=== PATIENT | female | born 1975 | race Caucasian/White ===

== ENCOUNTER 2017-12-17 17:06 | Emergency (ER) | payer OTHER ==
--- NOTE | 2017-12-17 17:27 | ER ---
Nurse's Notes [facility] Name: Joy Strauss Age: 42 yrs Sex: Female : 1975 Arrival Date: 12/17/2017 Time: 17:11 Bed 19 Private MD: Diagnosis: Acute pharyngitis Presentation: 12/17 17:24 Presenting complaint: Patient states: daughter was diagnosed with strep on Saturday, iw yesterday pt started having sore throat, burning in chest when she breathes, productive cough. Transition of care: patient was not received from another setting of care. Onset of symptoms was December 16, 2017. Initial Sepsis Screen: Does the patient meet any 2 criteria? No. Patient's initial sepsis screen is negative. Does the patient have a suspected source of infection? No. Patient's initial sepsis screen is negative. Care prior to arrival: None. 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 - Social history:: Smoking status: Patient/guardian denies using tobacco. - Family history:: not pertinent. - Hospitalizations: : No recent hospitalization is reported. Screenin:30 Abuse screen: Denies threats or abuse. Denies injuries from another. Nutritional iw screening: On. Tuberculosis screening: No symptoms or risk factors identified. Fall Risk None identified. Assessment: 17:29 General: Appears in no apparent distress. comfortable, Behavior is calm, cooperative. iw Pain: Complains of pain in throat, chest. Neuro: Level of Consciousness is awake, alert, obeys commands, Oriented to person, place, time, situation, Moves all extremities. Full function. Cardiovascular: Patient's skin is warm and dry. Respiratory: Reports cough that is Airway is patent Respiratory effort is even, unlabored, Breath sounds are clear bilaterally. EENT: Throat is reddened bilaterally. Derm: Skin is pink, warm \T\ dry. normal. Musculoskeletal: Range of motion: intact in all extremities. Vital Signs: 17:27 BP 124 / 93; Pulse 98; Resp 16 S; Temp 98.2; Pulse Ox 100% on R/A; Weight 61.23 kg; iw Height 5 ft. 2 in. (157.48 cm); 17:27 Body Mass Index 24.69 (61.23 kg, 157.48 cm) iw ED Course: 17:11 Patient arrived in ED. sb2 17:14 Brooks Saleh MD is Attending Physician. rn 17:15 Angelito Celis RN is Primary Nurse. hj 17:26 Triage completed. iw 17:28 Arm band placed on right wrist. iw 17:30 No provider procedures requiring assistance completed. Patient did not have IV access iw during this emergency room visit. 17:34 Patient has correct armband on for positive identification. iw Administered Medications: No medications were administered Outcome: 17:27 Discharge ordered by MD. rn 17:33 Discharged to home ambulatory, with family. iw 17:33 Condition: good 17:33 Discharge instructions given to patient, Instructed on discharge instructions, follow up and referral plans. medication usage, Demonstrated understanding of instructions, follow-up care, medications, Prescriptions given X 1. 17:34 Patient left the ED. iw Signatures: Yenny Morrissey RN RN Brooks Saleh MD MD rn Joaquin, Henry, RN RN Kathrin Jarrell sb2 Corrections: (The following items were deleted from the chart) 17:29 17:27 BP 124 / 93; Pulse 98bpm; Resp 16bpm; Spontaneous; Pulse Ox 100% RA; 61.23 kg; iw Height 5 ft. 2 in.; BMI: 24.6; iw
--- NOTE | 2017-12-17 17:28 | EDPHYS ---
Physician Documentation [facility] Name: Joy Strauss Age: 42 yrs Sex: Female : 1975 Arrival Date: 12/17/2017 Time: 17:11 Bed 19 Private MD: ED Physician Brooks Saleh HPI: 12/17 17:23 This 42 yrs old Female presents to ER via Unassigned with complaints of Sore rn Throat. 17:23 The patient presents with sore throat. The patient describes throat pain as raw. rn 17:23 Severity of symptoms: At their worst the symptoms were mild, in the emergency rn department the symptoms are unchanged. Associated signs and symptoms: Pertinent positives: Sore throat. The patient has not experienced similar symptoms in the past. Reports daughter tested and diagnosed with strep throat a few days ago, on abx, now her throat hurting, raw, hurts to swallow. No trouble breathing. . 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 - Social history:: Smoking status: Patient/guardian denies using tobacco. - Family history:: not pertinent. - Hospitalizations: : No recent hospitalization is reported. ROS: 17:23 Constitutional: Negative for fever, chills, and weight loss, Eyes: Negative for injury, rn pain, redness, and discharge, Neck: + sore throat Cardiovascular: Negative for chest pain, palpitations, and edema, Respiratory: Negative for shortness of breath, wheezing, and pleuritic chest pain, Abdomen/GI: Negative for abdominal pain, nausea, vomiting, diarrhea, and constipation, Back: Negative for injury and pain, MS/Extremity: Negative for injury and deformity, Skin: Negative for injury, rash, and discoloration, Neuro: Negative for headache, weakness, numbness, tingling, and seizure. Exam: 17:23 Constitutional: This is a well developed, well nourished patient who is awake, alert, rn and in no acute distress. Eyes: Pupils equal round and reactive to light, extra-ocular motions intact. Lids and lashes normal. Conjunctiva and sclera are non-icteric and not injected. Cornea within normal limits. Periorbital areas with no swelling, redness, or edema. ENT: + mild pharyngeal erythema, no stridor, + mild anterior cervical LAD Vital Signs: 17:27 BP 124 / 93; Pulse 98; Resp 16 S; Temp 98.2; Pulse Ox 100% on R/A; Weight 61.23 kg; iw Height 5 ft. 2 in. (157.48 cm); 17:27 Body Mass Index 24.69 (61.23 kg, 157.48 cm) iw MDM: 17:14 Patient medically screened. rn 17:23 Differential diagnosis: group A strep tonsillitis, laryngitis, upper respiratory rn infection, viral syndrome. Data reviewed: vital signs, nurses notes, and as a result, I will discharge patient. Counseling: I had a detailed discussion with the patient and/or guardian regarding: the historical points, exam findings, and any diagnostic results supporting the discharge/admit diagnosis, the need for outpatient follow up, to return to the emergency department if symptoms worsen or persist or if there are any questions or concerns that arise at home. Special discussion: I discussed with the patient/guardian in detail that at this point there is no indication for admission to the hospital. It is understood, however, that if the symptoms persist or worsen the patient needs to return immediately for re-evaluation. ED course: Will dc home and treat for strep given daughter with identical symptoms and positive for strep. . Administered Medications: No medications were administered Disposition: 12/17/17 17:27 Discharged to Home. Impression: Acute pharyngitis. - Condition is Stable. - Discharge Instructions: Pharyngitis, Sore Throat, [id number]. - Prescriptions for Augmentin 875- 125 mg Oral Tablet - take 1 tablet by ORAL route every 12 hours for 10 days; 20 tablet. - Medication Reconciliation Form, Thank You Letter, Antibiotic Education, Prescription Opioid Use form. - Follow up: Private Physician; When: As needed; Reason: Recheck today's complaints, Re-evaluation by your physician. - Problem is new. - Symptoms have improved. Signatures: Yenny Morrissey RN RN iw Brooks Saleh MD MD digital marketing intern: (The following items were deleted from the chart) 17:24 17:23 Reports daughter tested and diagnosed with strep throat a few days ago, on abx, rn now her throat hurting, raw, hurts to swallow. . rn
== END 2017-12-17 17:34 | disposition home or self-care (01) ==
LOC: ER 17:06
DX: J02.9 Acute pharyngitis, unspecified (principal)
CPT/HCPCS: 99282

== ENCOUNTER 2018-01-28 15:36 | Emergency (ER) | payer OTHER ==
[2018-01-28 17:41] LABS: Urine Blood TRACE (NEG); Urine Glucose NEGATIVE (NEG); Urine Protein NEGATIVE (NEG); Urine Specific Gravity 1.025 (1.005-1.030); Urine pH 5.5 (5.0-7.0)
--- NOTE | 2018-01-28 18:03 | EDPHYS ---
Physician Documentation [facility] Name: Joy Strauss Age: 42 yrs Sex: Female : 1975 Arrival Date: 01/28/2018 Time: 15:40 Bed 5 Private MD: None, None ED Physician Sean Stewart HPI: 01/28 17:57 This 42 yrs old Female presents to ER via Ambulatory with complaints of gs Abdominal Pain. 17:57 The patient presents with abdominal pain in the lower abdomen. Onset: The gs symptoms/episode began/occurred gradually, 3 day(s) ago. Associated signs and symptoms: Pertinent negatives: nausea and vomiting, dysuria, fever, vaginal discharge. The symptoms are described as crampy. Modifying factors: The symptoms are alleviated by nothing, the symptoms are aggravated by nothing. Severity of pain: At its worst the pain was mild in the emergency department the pain is unchanged. The patient has experienced similar episodes in the past, a few times. 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 - Social history:: Smoking status: Patient/guardian denies using tobacco. - Ebola Screening: : No symptoms or risks identified at this time. ROS: 17:57 All other systems are negative. gs Exam: 17:57 Head/Face: Normocephalic, atraumatic. Eyes: Pupils equal round and reactive to light, gs extra-ocular motions intact. Lids and lashes normal. Conjunctiva and sclera are non-icteric and not injected. Cornea within normal limits. Periorbital areas with no swelling, redness, or edema. ENT: Nares patent. No nasal discharge, no septal abnormalities noted. Tympanic membranes are normal and external auditory canals are clear. Oropharynx with no redness, swelling, or masses, exudates, or evidence of obstruction, uvula midline. Mucous membranes moist. Neck: Trachea midline, no thyromegaly or masses palpated, and no cervical lymphadenopathy. Supple, full range of motion without nuchal rigidity, or vertebral point tenderness. No Meningismus. Chest/axilla: Normal chest wall appearance and motion. Nontender with no deformity. No lesions are appreciated. Cardiovascular: Regular rate and rhythm with a normal S1 and S2. No gallops, murmurs, or rubs. Normal PMI, no JVD. No pulse deficits. Respiratory: Lungs have equal breath sounds bilaterally, clear to auscultation and percussion. No rales, rhonchi or wheezes noted. No increased work of breathing, no retractions or nasal flaring. Back: No spinal tenderness. No costovertebral tenderness. Full range of motion. Skin: Warm, dry with normal turgor. Normal color with no rashes, no lesions, and no evidence of cellulitis. MS/ Extremity: Pulses equal, no cyanosis. Neurovascular intact. Full, normal range of motion. Neuro: Awake and alert, GCS 15, oriented to person, place, time, and situation. Cranial nerves II-XII grossly intact. Motor strength 5/5 in all extremities. Sensory grossly intact. Cerebellar exam normal. Normal gait. 17:57 Constitutional: The patient appears alert, awake. 17:57 Abdomen/GI: Palpation: mild abdominal tenderness, in the suprapubic area, right lower quadrant and left lower quadrant, mass, is not appreciated, rebound tenderness, is not appreciated. Vital Signs: 15:44 BP 133 / 84; Pulse 113; Resp 18 S; Temp 98.0(TE); Pulse Ox 97% on R/A; Weight 61.23 kg aa5 (R); Height 5 ft. 2 in. (157.48 cm) (R); Pain 7/10; 16:24 BP 125 / 82; Pulse 94; Resp 17; Pulse Ox 100% on R/A; tw2 15:44 Body Mass Index 24.69 (61.23 kg, 157.48 cm) aa5 MDM: 16:42 Patient medically screened. 17:57 Differential diagnosis: urinary tract infection, ectopic, miscarriage. Data reviewed: vital signs, nurses notes. 01/28 17:20 Order name: Urine Dipstick--Ancillary (enter results); Complete Time: 17:46 bd 01/28 17:20 Order name: Urine --Ancillary (enter results); Complete Time: 17:46 bd 01/28 16:42 Order name: Urine Dipstick-Ancillary (obtain specimen); Complete Time: 16:42 tw2 Administered Medications: No medications were administered Disposition: 01/28/18 18:02 Discharged to Home. Impression: Pelvic and perineal pain. - Condition is Stable. - Discharge Instructions: Pelvic Pain, Female. - Medication Reconciliation Form, Thank You Letter, Antibiotic Education, Prescription Opioid Use form. - Follow up: Private Physician; When: 2 - 3 days; Reason: Re-evaluation by your physician. Signatures: Dispatcher [employer] EDPaty Mendez RN RN aa5 Maddie Zapata RN RN tw2 Sean Stewart MD MD gs Corrections: (The following items were deleted from the chart) 18:20 18:02 01/28/2018 18:02 Discharged to Home. Impression: Pelvic and perineal pain. tw2 Condition is Stable. Forms are Medication Reconciliation Form, Thank You Letter, Antibiotic Education, Prescription Opioid Use. Follow up: Private Physician; When: 2 - 3 days; Reason: Re-evaluation by your physician. gs
--- NOTE | 2018-01-28 18:03 | ER ---
Nurse's Notes [facility] Name: Joy Strauss Age: 42 yrs Sex: Female : 1975 Arrival Date: 01/28/2018 Time: 15:40 Bed 5 Private MD: None, None Diagnosis: Pelvic and perineal pain Presentation: 01/28 15:43 Presenting complaint: Patient states: pelvic pain that began yesterday. Pt denies aa5 N/V/D, denies urinary symptoms. Transition of care: patient was not received from another setting of care. Onset of symptoms was January 2018. Risk Assessment: Do you want to hurt yourself or someone else? Patient reports no desire to harm self or others. Initial Sepsis Screen: Does the patient meet any 2 criteria? No. Patient's initial sepsis screen is negative. Does the patient have a suspected source of infection? No. Patient's initial sepsis screen is negative. Care prior to arrival: None. 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 - Social history:: Smoking status: Patient/guardian denies using tobacco. - Ebola Screening: : No symptoms or risks identified at this time. Screenin:26 Abuse screen: Denies threats or abuse. Nutritional screening: No deficits noted. tw2 Tuberculosis screening: No symptoms or risk factors identified. Fall Risk None identified. Assessment: 16:24 General: Appears in no apparent distress. Behavior is calm, cooperative, appropriate tw2 for age. Pain: Complains of pain in suprapubic area, right lower quadrant and left lower quadrant. Neuro: Level of Consciousness is awake, alert, obeys commands, Oriented to person, place, time, situation. Cardiovascular: Denies chest pain, shortness of breath, Heart tones S1 S2 Capillary refill < 3 seconds Patient's skin is warm and dry. Respiratory: Airway is patent Respiratory effort is even, unlabored, Respiratory pattern is regular, symmetrical, Breath sounds are clear bilaterally. GI: Bowel sounds present X 4 quads. Abd is soft X 4 quads Reports lower abdominal pain, bloating, Patient currently denies diarrhea, nausea. : No signs and/or symptoms were reported regarding the genitourinary system. EENT: No signs and/or symptoms were reported regarding the EENT system. Derm: Skin is intact, is healthy with good turgor, Skin temperature is warm. Musculoskeletal: Range of motion: intact in all extremities. 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 Vital Signs: 15:44 BP 133 / 84; Pulse 113; Resp 18 S; Temp 98.0(TE); Pulse Ox 97% on R/A; Weight 61.23 kg aa5 (R); Height 5 ft. 2 in. (157.48 cm) (R); Pain 7/10; 16:24 BP 125 / 82; Pulse 94; Resp 17; Pulse Ox 100% on R/A; tw2 15:44 Body Mass Index 24.69 (61.23 kg, 157.48 cm) aa5 ED Course: 15:40 Patient arrived in ED. sb2 15:40 None, None is Private Physician. sb2 15:44 Triage completed. aa5 16:00 Sean Stewart MD is Attending Physician. 16:11 Maddie Zapata RN is Primary Nurse. tw2 16:24 Arm band placed on. tw2 16:25 Bed in low position. Pulse ox on. NIBP on. tw2 18:17 No provider procedures requiring assistance completed. tw2 18:19 Patient did not have IV access during this emergency room visit. tw2 Administered Medications: No medications were administered Outcome: 18:02 Discharge ordered by . 18:19 Eloped from patient exam room, before seeing physician Time discovered patient gone: tw2 January 28, 2018 at 17:45 18:20 Patient left the ED. tw2 Signatures: Paty Walters RN RN aa5 Maddie Zapata RN RN tw2 Saen Stewart MD MD Billeau, Kathrin sb2 Corrections: (The following items were deleted from the chart) 18:19 18:17 Reassessment: Patient appears in no apparent distress at this time. No changes tw2 from previously documented assessment. Patient and/or family updated on plan of care and expected duration. Pain level reassessed. Patient is alert, oriented x 3, equal unlabored respirations, skin warm/dry/pink. tw2
== END 2018-01-28 18:20 | disposition home or self-care (01) ==
LOC: ER 15:36
DX: R10.2 Pelvic and perineal pain (principal)
CPT/HCPCS: 81003; 81025; 99282

== ENCOUNTER 2018-01-28 18:37 | Emergency (ER) | payer OTHER ==
[2018-01-28 21:17] LABS: Absolute Lymphocytes (CBC) 2.1 K/uL (0.7-4.9); Absolute Monocytes 0.5 K/uL (0.1-1.3); Absolute Neutrophil 4.8 K/uL (1.8-8.0); Basophils % 0.8 % (0-1.3); Eosinophils % 2.6 % (0-4.4); Hematocrit 39.6 % (36.0-45.0); Lymphocytes % 27.3 % (15.3-44.8); MCH 31.4 pg (27.0-35.0); MCV 89.8 fL (80-100); MPV 9.3 fL (7.6-11.3); Monocytes % 6.6 % (3.3-12.3); RBC Red Blood Cell Count 4.41 M/uL (3.86-4.86)
[2018-01-28 21:37] LABS: Potassium 3.3 mEq/L (3.6-5.0)
[2018-01-28 21:43] LABS: Albumin 4.5 g/dL (3.2-5.5); Bilirubin Direct 0.1 mg/dL (0-0.2); Bilirubin Total 0.4 mg/dL (0.3-1.2); Protein, Total 7.2 g/dL (6.0-8.3)
[2018-01-28 21:52] LABS: Urine Amorphous Sediment 1+ /HPF (NONE SEEN); Urine Bacteria <20 /HPF (<20); Urine Culture Reflex Order REFLEXED; Urine RBC <5 /HPF (NONE SEEN)
[2018-01-28 22:15] LABS: Urine Blood NEGATIVE (NEG); Urine Glucose NEGATIVE (NEG); Urine Protein NEGATIVE (NEG)
[2018-01-28] MEDS ORDERED: LIDOCAINE 1% MPF 5 ML VIAL ONE (23:50)
[2018-01-28] MEDS ORDERED: AZITHROMYCIN 250 MG TAB ONE (23:50)
[2018-01-28] MEDS ORDERED: CEFTRIAXONE 250 MG/VIAL ONE (23:50)
--- NOTE | 2018-01-28 23:50 | EDPHYS ---
Physician Documentation [facility] Name: Joy Strauss Age: 42 yrs Sex: Female : 1975 Arrival Date: 01/28/2018 Time: 18:41 Bed 25 Private MD: None, None ED Physician Boby Bal HPI: 01/28 23:00 This 42 yrs old Female presents to ER via Ambulatory with complaints of pm1 Vaginal discharge. 23:00 The patient presents with vaginal discharge. Onset: The symptoms/episode began/occurred pm1 yesterday. Modifying factors: The symptoms are alleviated by nothing, the symptoms are aggravated by nothing. Associated signs and symptoms: Pertinent negatives: dysuria, fever, vaginal bleeding. Severity of symptoms: in the emergency department the symptoms are unchanged. The patient is sexually active, reportedly has a single partner, does not use protection during intercourse. 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 - Social history:: Smoking status: Patient/guardian denies using tobacco. - Ebola Screening: : Patient negative for fever greater than or equal to 101.5 degrees Fahrenheit, and additional compatible Ebola Virus Disease symptoms Patient denies exposure to infectious person Patient denies travel to an Ebola-affected area in the 21 days before illness onset No symptoms or risks identified at this time. ROS: 23:00 Positive for vaginal discharge, Negative for pelvic pain, flank pain. pm1 23:00 Constitutional: Negative for fever, chills, and weight loss, Eyes: Negative for injury, pain, redness, and discharge, ENT: Negative for injury, pain, and discharge, Neck: Negative for injury, pain, and swelling, Cardiovascular: Negative for chest pain, palpitations, and edema, Respiratory: Negative for shortness of breath, cough, wheezing, and pleuritic chest pain, Back: Negative for injury and pain, MS/Extremity: Negative for injury and deformity, Skin: Negative for injury, rash, and discoloration, Neuro: Negative for headache, weakness, numbness, tingling, and seizure. 23:00 Abdomen/GI: Positive for abdominal pain, of the suprapubic area, Negative for nausea, vomiting, and diarrhea. Exam: 01/29 00:00 Constitutional: This is a well developed, well nourished patient who is awake, alert, pm1 and in no acute distress. Head/Face: Normocephalic, atraumatic. Neck: Trachea midline, no thyromegaly or masses palpated, and no cervical lymphadenopathy. Supple, full range of motion without nuchal rigidity, or vertebral point tenderness. No Meningismus. Chest/axilla: Normal chest wall appearance and motion. Nontender with no deformity. No lesions are appreciated. Cardiovascular: Regular rate and rhythm with a normal S1 and S2. No gallops, murmurs, or rubs. Normal PMI, no JVD. No pulse deficits. Respiratory: Lungs have equal breath sounds bilaterally, clear to auscultation and percussion. No rales, rhonchi or wheezes noted. No increased work of breathing, no retractions or nasal flaring. Back: No spinal tenderness. No costovertebral tenderness. Full range of motion. Skin: Warm, dry with normal turgor. Normal color with no rashes, no lesions, and no evidence of cellulitis. MS/ Extremity: Pulses equal, no cyanosis. Neurovascular intact. Full, normal range of motion. Abdomen/GI: Inspection: abdomen appears normal, Bowel sounds: normal, Palpation: abdomen is soft and non-tender, in all quadrants, in the suprapubic area, mass, is not appreciated, rebound tenderness, is not appreciated. : Pelvic Exam: External exam: is normal, Speculum exam: no bleeding is noted, no cervicitis, bimanual exam reveals normal findings, no cervical motion tenderness, no adnexa tenderness or masses bilaterally, discharge, yellow, the audiovisual tech was present for the exam. Neuro: Orientation: is normal, Motor: is normal, moves all fours, Gait: is steady, at a normal pace, without difficulty. Vital Signs: 01/28 19:03 BP 131 / 86; Pulse 92; Resp 18; Temp 98.0; Pulse Ox 97% on R/A; Weight 61.23 kg; Height aj 5 ft. 2 in. (157.48 cm); 21:01 BP 109 / 69; Pulse 86; Resp 18; Pulse Ox 100% ; aj1 01/29 00:01 BP 114 / 75; Pulse 85; Resp 17; Pulse Ox 99% on R/A; kr2 01/28 19:03 Body Mass Index 24.69 (61.23 kg, 157.48 cm) aj MDM: 01/28 20:23 Patient medically screened. pm1 23:46 Data reviewed: vital signs. Data interpreted: Pulse oximetry: on room air is 100 %. pm1 Interpretation: normal. Counseling: I had a detailed discussion with the patient and/or guardian regarding: the historical points, exam findings, and any diagnostic results supporting the discharge/admit diagnosis, lab results, the need for outpatient follow up, to return to the emergency department if symptoms worsen or persist or if there are any questions or concerns that arise at home. 01/28 20:44 Order name: Basic Metabolic Panel; Complete Time: 22:46 pm1 01/28 20:44 Order name: CBC with Diff; Complete Time: 21:30 pm1 01/28 20:44 Order name: Hepatic Function; Complete Time: 22:46 pm1 01/28 20:44 Order name: Lipase; Complete Time: 22:46 pm1 01/28 20:44 Order name: Urine Microscopic Only; Complete Time: 22:46 pm1 01/28 20:44 Order name: GC (GONORR/CHLAMYDIA) Probe pm1 01/28 20:44 Order name: Urine Test (obtain specimen); Complete Time: 23:44 pm1 01/28 20:44 Order name: IV Saline Lock; Complete Time: 21:01 pm01/28 20:44 Order name: Wet Prep; Complete Time: 23:45 pm01/28 21:29 Order name: Urine Dipstick--Ancillary (enter results); Complete Time: 22:46 [email or web address] 01/28 21:29 Order name: Urine --Ancillary (enter results); Complete Time: 22:46 [email or web address] 01/28 21:53 Order name: Urine Culture [facility] 01/28 20:44 Order name: Labs collected and sent; Complete Time: 21:01 pm1 01/28 20:44 Order name: Urine Dipstick-Ancillary (obtain specimen); Complete Time: 23:44 pm1 01/28 20:44 Order name: Pelvic Exam Setup; Complete Time: 21:01 pm1 Administered Medications: 23:49 Drug: Rocephin (cefTRIAXone) 250 mg Route: IM; Site: right gluteus; kr2 01/29 00:00 Follow up: Response: No adverse reaction kr2 01/28 23:50 Drug: Zithromax 1 grams Route: PO; kr2 01/29 00:00 Follow up: Response: No adverse reaction kr2 Disposition: 07:15 Co-signature as Attending Physician, Boby Bal MD Available for consultation at ps1 all times. . Disposition: 01/28/18 23:49 Discharged to Home. Impression: Vaginal discharge. - Condition is Stable. - Medication Reconciliation Form, Thank You Letter, Antibiotic Education form. - Follow up: Emergency Department; When: As needed; Reason: Worsening of condition. Follow up: Private Physician; When: 2 - 3 days; Reason: Recheck today's complaints, Continuance of care, Re-evaluation by your physician. - Problem is new. - Symptoms have improved. Signatures: Dispatcher [employer] EDMS Melissa Adkins RN RN aj Marinas, Patrick, MARYAN SUPPLIER RELATIONSHIP DIRECTOR pm1 Kiesha Sweet RN RN kr2 Boby Bal MD MD ps1 Corrections: (The following items were deleted from the chart) 00:02 01/28 23:49 01/28/2018 23:49 Discharged to Home. Impression: Vaginal discharge. kr2 Condition is Stable. Forms are Medication Reconciliation Form, Thank You Letter, Antibiotic Education, Prescription Opioid Use. Follow up: Emergency Department; When: As needed; Reason: Worsening of condition. Follow up: Private Physician; When: 2 - 3 days; Reason: Recheck today's complaints, Continuance of care, Re-evaluation by your physician. Problem is new. Symptoms have improved. pm1
--- NOTE | 2018-01-28 23:50 | ER ---
Nurse's Notes [facility] Name: Joy Strauss Age: 42 yrs Sex: Female : 1975 Arrival Date: 01/28/2018 Time: 18:41 Bed 25 Private MD: None, None Diagnosis: Vaginal discharge Presentation: 01/28 19:01 Presenting complaint: Patient states: Reports pelvic pain with yellow discharge that aj started 2 days ago. Transition of care: patient was not received from another setting of care. Onset of symptoms was January 27, 2018. Risk Assessment: Do you want to hurt yourself or someone else? Patient reports no desire to harm self or others. Care prior to arrival: None. 19:01 Method Of Arrival: Ambulatory aj 19:01 Acuity: FÉLIX 3 aj 23:08 Initial Sepsis Screen: Does the patient meet any 2 criteria? No. Patient's initial kr2 sepsis screen is negative. Does the patient have a suspected source of infection? No. Patient's initial sepsis screen is negative. Triage Assessment: 19:03 General: Appears in no apparent distress. comfortable, Behavior is calm, cooperative, aj appropriate for age. Pain: Complains of pain in pelvis Pain currently is 6 out of 10 on a pain scale. Neuro: Level of Consciousness is awake, alert, obeys commands, Oriented to person, place, time, situation, Appropriate for age. Respiratory: Airway is patent Respiratory effort is even, unlabored, Respiratory pattern is regular, symmetrical. GI: Abdomen is flat, non-distended. : Reports discharge, yellow, pain in suprapubic area. Derm: Skin is intact, is healthy with good turgor, Skin is pink, warm \T\ dry. normal. 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 - Social history:: Smoking status: Patient/guardian denies using tobacco. - Ebola Screening: : Patient negative for fever greater than or equal to 101.5 degrees Fahrenheit, and additional compatible Ebola Virus Disease symptoms Patient denies exposure to infectious person Patient denies travel to an Ebola-affected area in the 21 days before illness onset No symptoms or risks identified at this time. Screenin:56 Abuse screen: Denies threats or abuse. Denies injuries from another. Nutritional aj1 screening: No deficits noted. Tuberculosis screening: No symptoms or risk factors identified. 21:00 Fall Risk None identified. kr2 Assessment: 19:56 General: Appears in no apparent distress. comfortable, Behavior is calm, cooperative, aj1 appropriate for age. Pain: Complains of pain in suprapubic area, right lower quadrant, left lower quadrant and pelvis Pain does not radiate. Pain currently is 7 out of 10 on a pain scale. Quality of pain is described as crampy, sharp, Pain began 2-3 days ago. Is continuous, Alleviated by nothing. Aggravated by nothing. Neuro: Level of Consciousness is awake, alert, obeys commands, Oriented to person, place, time, situation. Cardiovascular: Patient's skin is warm and dry. Respiratory: Airway is patent Respiratory effort is even, unlabored, Respiratory pattern is regular, symmetrical. GI: Abdomen is non-distended, Bowel sounds present X 4 quads. Abd is soft X 4 quads Abdomen is tender to palpation in suprapubic area Patient currently denies diarrhea, nausea, vomiting. : Reports discharge, from vagina that is yellow. EENT: No signs and/or symptoms were reported regarding the EENT system. Derm: No signs and/or symptoms reported regarding the dermatologic system. Skin is pink, warm \T\ dry. normal. Musculoskeletal: No signs and/or symptoms reported regarding the musculoskeletal system. Circulation, motion, and sensation intact. 21:00 Reassessment: Patient appears in no apparent distress at this time. No changes from aj1 previously documented assessment. Patient and/or family updated on plan of care and expected duration. Pain level reassessed. Patient is alert, oriented x 3, equal unlabored respirations, skin warm/dry/pink. 22:00 Reassessment: Patient appears in no apparent distress at this time. Patient and/or kr2 family updated on plan of care and expected duration. Pain level reassessed. Patient is alert, oriented x 3, equal unlabored respirations, skin warm/dry/pink. 23:01 Reassessment: Provider P. Marinas, PUMPER BREWERY performed pelvic exam with Cary kurtz as a kr2 traffic worker. Vital Signs: 19:03 BP 131 / 86; Pulse 92; Resp 18; Temp 98.0; Pulse Ox 97% on R/A; Weight 61.23 kg; Height aj 5 ft. 2 in. (157.48 cm); 21:01 BP 109 / 69; Pulse 86; Resp 18; Pulse Ox 100% ; aj1 01/29 00:01 BP 114 / 75; Pulse 85; Resp 17; Pulse Ox 99% on R/A; kr2 01/28 19:03 Body Mass Index 24.69 (61.23 kg, 157.48 cm) aj ED Course: 01/28 18:41 Patient arrived in ED. sb2 18:41 None, None is Private Physician. sb2 19:02 Triage completed. aj 19:03 Arm band placed on right wrist. Patient placed in waiting room, Patient notified of aj wait time. 19:56 Kay Gresham, RN is Primary Nurse. aj1 19:56 Patient has correct armband on for positive identification. Bed in low position. Call aj1 light in reach. Side rails up X 1. 19:56 No provider procedures requiring assistance completed. aj1 20:12 Lito Jerome NP is PHCP. pm1 20:12 Sean Stewart MD is Attending Physician. pm1 20:57 Boby Bal MD is Attending Physician. pm1 01/29 00:01 IV discontinued, intact, bleeding controlled, No redness/swelling at site. Pressure kr2 dressing applied. Administered Medications: 01/28 23:49 Drug: Rocephin (cefTRIAXone) 250 mg Route: IM; Site: right gluteus; kr2 01/29 00:00 Follow up: Response: No adverse reaction kr2 01/28 23:50 Drug: Zithromax 1 grams Route: PO; kr2 01/29 00:00 Follow up: Response: No adverse reaction kr2 Outcome: 01/28 23:49 Discharge ordered by . pm1 01/29 00:00 Discharged to home ambulatory. kr2 Condition: good Discharge instructions given to patient, Instructed on discharge instructions, follow up and referral plans. safe sex practices, Demonstrated understanding of instructions, follow-up care, safe sex practices 00:02 Patient left the ED. kr2 Addendum: 01/31/2018 08:45 Addendum: Culture Results: Positive urine culture. Bacteria is resistant to, has i w intermediate sensitivity, or is not tested against prescribed antibiotics. Report given to LAYA for further evaluation and then to covering machine operator for follow up with patient. Phone call Attempt #1 pt did not answer, left voicemail with call back number. Signatures: Kay Gresham RN RN aj1 Melissa Adkins RN RN Yenny Tran RN RN Lito Villa, PUMPER BREWERY PUMPER BREWERY pm1 Kiesha Sweet RN RN kr2 Kathrin Jarrell2
[2018-01-31 06:21] LABS: C.trachomatis RNA,TMA Not Detected (Not Detected)
== END 2018-01-29 00:02 | disposition home or self-care (01) ==
LOC: ER 18:37
DX: N89.8 Other specified noninflammatory disorders of vagina (principal)
CPT/HCPCS: 36415; 80048; 80076; 81025; 83690; 85025; 87077; 87086; 87088; 87186; 87210; 87490; 87590; 96372; 99283; J0696; 81003; 81015; 99282

== ENCOUNTER 2019-02-10 12:24 | Emergency (ER) | payer OTHER ==
--- NOTE | 2019-02-10 13:48 | EDPHYS ---
Physician Documentation [facility] Name: Joy Strauss Age: 43 yrs Sex: Female : 1975 Arrival Date: 02/10/2019 Time: 12:30 Bed 26 Private MD: ED Physician Norberto Aguirre HPI: 02/10 13:42 This 43 yrs old Female presents to ER via Ambulatory with complaints of melinda Insect Bite. 13:42 The patient presents with pain, swelling, tenderness. The complaints affect the left [facility] calf. Context: The problem was sustained at home, outdoors, resulted from an unknown cause, bite. Onset: The symptoms/episode began/occurred yesterday. Modifying factors: The symptoms are alleviated by elevating leg, remaining still, the symptoms are aggravated by movement. Associated signs and symptoms: Pertinent positives: calf tenderness, swelling, warmth. Treatment prior to arrival includes: no previous treatment. Severity of symptoms: At their worst the symptoms were mild, in the emergency department the symptoms are unchanged. The patient has not experienced similar symptoms in the past. 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 - Social history:: Smoking status: Patient/guardian denies using tobacco, Patient/guardian denies using. - Family history:: not pertinent. - Ebola Screening: : No symptoms or risks identified at this time. ROS: 13:42 Constitutional: Negative for fever, chills, and weight loss, Eyes: Negative for injury, melinda pain, redness, and discharge, ENT: Negative for injury, pain, and discharge, Neck: Negative for injury, pain, and swelling, Cardiovascular: Negative for chest pain, palpitations, and edema, Respiratory: Negative for shortness of breath, cough, wheezing, and pleuritic chest pain, Abdomen/GI: Negative for abdominal pain, nausea, vomiting, diarrhea, and constipation, Back: Negative for injury and pain, : Negative for injury, bleeding, discharge, and swelling, Skin: Negative for injury, rash, and discoloration, Neuro: Negative for headache, weakness, numbness, tingling, and seizure, Psych: Negative for depression, anxiety, suicide ideation, homicidal ideation, and hallucinations, Allergy/Immunology: Negative for hives, rash, and allergies, Endocrine: Negative for neck swelling, polydipsia, polyuria, polyphagia, and marked weight changes, Hematologic/Lymphatic: Negative for swollen nodes, abnormal bleeding, and unusual bruising. 13:42 MS/extremity: Positive for pain, swelling, tenderness, of the left calf. Exam: 13:42 Constitutional: This is a well developed, well nourished patient who is awake, alert, melinda and in no acute distress. Head/Face: Normocephalic, atraumatic. Eyes: Pupils equal round and reactive to light, extra-ocular motions intact. Lids and lashes normal. Conjunctiva and sclera are non-icteric and not injected. Cornea within normal limits. Periorbital areas with no swelling, redness, or edema. ENT: Nares patent. No nasal discharge, no septal abnormalities noted. Tympanic membranes are normal and external auditory canals are clear. Oropharynx with no redness, swelling, or masses, exudates, or evidence of obstruction, uvula midline. Mucous membranes moist. Neck: Trachea midline, no thyromegaly or masses palpated, and no cervical lymphadenopathy. Supple, full range of motion without nuchal rigidity, or vertebral point tenderness. No Meningismus. Chest/axilla: Normal chest wall appearance and motion. Nontender with no deformity. No lesions are appreciated. Cardiovascular: Regular rate and rhythm with a normal S1 and S2. No gallops, murmurs, or rubs. Normal PMI, no JVD. No pulse deficits. Respiratory: Lungs have equal breath sounds bilaterally, clear to auscultation and percussion. No rales, rhonchi or wheezes noted. No increased work of breathing, no retractions or nasal flaring. Abdomen/GI: Soft, non-tender, with normal bowel sounds. No distension or tympany. No guarding or rebound. No evidence of tenderness throughout. Back: No spinal tenderness. No costovertebral tenderness. Full range of motion. Skin: Warm, dry with normal turgor. Normal color with no rashes, no lesions, and no evidence of cellulitis. Neuro: Awake and alert, GCS 15, oriented to person, place, time, and situation. Cranial nerves II-XII grossly intact. Motor strength 5/5 in all extremities. Sensory grossly intact. Cerebellar exam normal. Normal gait. Psych: Awake, alert, with orientation to person, place and time. Behavior, mood, and affect are within normal limits. 13:42 Musculoskeletal/extremity: Extremities: erythema, pain, ROM: no acute changes, intact in all extremities, full active range of motion, full passive range of motion, Circulation is intact in all extremities. Sensation intact. Compartment Syndrome exam of affected extremity: is normal. DVT Exam: negative Homans' sign noted on exam, no appreciated bluish discoloration, pain, swelling, tenderness, erythema, increased warmth, that is mild, of the left leg, of the left calf. Vital Signs: 12:39 BP 138 / 74; Pulse 125; Resp 18; Temp 98.1(O); Pulse Ox 98% on R/A; Weight 63.5 kg; hj Height 5 ft. 2 in. (157.48 cm); Pain 5/10; 13:04 BP 131 / 82 RA (auto/reg); Pulse 112; Resp 18; Temp 97.9(O); Pulse Ox 99% on R/A; Pain jp3 6/10; 12:39 Body Mass Index 25.61 (63.50 kg, 157.48 cm) MDM: 13:04 Patient medically screened. [facility] 13:42 Data reviewed: vital signs, nurses notes. [facility] Administered Medications: 13:59 Drug: Tetanus-Diphtheria Toxoid Adult 0.5 ml {Media Promoter: u.sit. Exp: mg2 11/15/2020. Lot #: [id number]. } Route: IM; Site: right deltoid; 14:02 Follow up: Response: No adverse reaction; Medication administered at discharge. mg2 14:00 Drug: Bactroban Ointment 2 % 1 application Route: Topical; Site: wound; mg2 14:02 Follow up: Response: No adverse reaction; Medication administered at discharge. mg2 14:00 Drug: Benadryl 25 mg Route: PO; mg2 14:02 Follow up: Response: No adverse reaction; Medication administered at discharge. mg2 14:01 Drug: Bactrim (160 mg-800 mg (DS) 1 tablet Route: PO; mg2 14:02 Follow up: Response: No adverse reaction; Medication administered at discharge. mg2 Disposition: 02/10/19 13:47 Discharged to Home. Impression: Insect bite (nonvenomous) of lower leg, Cellulitis and acute lymphangitis of other parts of limb. - Condition is Stable. - Discharge Instructions: Insect Bite, Habx-ex-Dpyx, Insect Bite, Cellulitis, Adult, [id number]. - Prescriptions for Bactroban 2 % Topical Ointment - Apply to affected area 1 application by TOPICAL route every 12 hours; 15 gram. Benadryl 25 mg Oral Capsule - take 1 capsule by ORAL route every 6 hours As needed; 30 tablet. Bactrim DS 800- 160 mg Oral Tablet - take 1 tablet by ORAL route every 12 hours for 10 days; 20 tablet. - Medication Reconciliation Form, Thank You Letter, Antibiotic Education, Prescription Opioid Use form. - Follow up: Private Physician; When: 2 - 3 days; Reason: Recheck today's complaints, Continuance of care, Re-evaluation by your physician. - Problem is new. - Symptoms have improved. Signatures: Norberto Aguirre MD MD cha Joaquin, Henry, RN RN Pedrito Dumont RN RN mg2 Corrections: (The following items were deleted from the chart) 14:07 13:47 02/10/2019 13:47 Discharged to Home. Impression: Insect bite (nonvenomous) of mg2 lower leg; Cellulitis and acute lymphangitis of other parts of limb. Condition is Stable. Forms are Medication Reconciliation Form, Thank You Letter, Antibiotic Education, Prescription Opioid Use. Follow up: Private Physician; When: 2 - 3 days; Reason: Recheck today's complaints, Continuance of care, Re-evaluation by your physician. Problem is new. Symptoms have improved. melinda
--- NOTE | 2019-02-10 13:48 | ER ---
Nurse's Notes [facility] Name: Joy Strauss Age: 43 yrs Sex: Female : 1975 Arrival Date: 02/10/2019 Time: 12:30 Bed 26 Private MD: Diagnosis: Insect bite (nonvenomous) of lower leg;Cellulitis and acute lymphangitis of other parts of limb Presentation: 02/10 12:37 Presenting complaint: Patient states: i got bit by insect last night on my L leg and hj today it hurts and it itches too and i feel nauseated; denies fever;. Transition of care: patient was not received from another setting of care. Onset of symptoms was February 10, 2019. Risk Assessment: Do you want to hurt yourself or someone else? Patient reports no desire to harm self or others. Initial Sepsis Screen: Does the patient meet any 2 criteria? No. Patient's initial sepsis screen is negative. Does the patient have a suspected source of infection? No. Patient's initial sepsis screen is negative. Care prior to arrival: None. 12:37 Method Of Arrival: Ambulatory 12:37 Acuity: FÉLIX 3 hj Triage Assessment: 14:07 Bite description: bite sustained to left calf by an unknown animal. General: Appears in mg2 no apparent distress. comfortable. 14:07 Bite description: animal information: vaccination(s) is unknown. 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 - Social history:: Smoking status: Patient/guardian denies using tobacco, Patient/guardian denies using. - Family history:: not pertinent. - Ebola Screening: : No symptoms or risks identified at this time. Screenin:05 Abuse screen: Denies threats or abuse. Denies injuries from another. Nutritional mg2 screening: No deficits noted. Tuberculosis screening: No symptoms or risk factors identified. Fall Risk None identified. Assessment: 14:03 General: Appears in no apparent distress. comfortable, Behavior is calm, cooperative. mg2 Pain: Complains of pain in left leg and left calf Pain does not radiate. Pain currently is 3 out of 10 on a pain scale. Quality of pain is described as aching, Pain began gradually, last night Is intermittent. Neuro: Level of Consciousness is awake, alert, obeys commands, Oriented to person, place, time, situation. Cardiovascular: Capillary refill < 3 seconds Patient's skin is warm and dry. Respiratory: Airway is patent Respiratory effort is even, unlabored, Respiratory pattern is regular, symmetrical. GI: No signs and/or symptoms were reported involving the gastrointestinal system. : No signs and/or symptoms were reported regarding the genitourinary system. EENT: No signs and/or symptoms were reported regarding the EENT system. Derm: Skin is intact, is healthy with good turgor, Skin is pink, warm \T\ dry. normal, redness and swelling noted in the left leg. Musculoskeletal: Circulation, motion, and sensation intact. Capillary refill < 3 seconds, Swelling present in left leg and left calf. Vital Signs: 12:39 BP 138 / 74; Pulse 125; Resp 18; Temp 98.1(O); Pulse Ox 98% on R/A; Weight 63.5 kg; hj Height 5 ft. 2 in. (157.48 cm); Pain 5/10; 13:04 BP 131 / 82 RA (auto/reg); Pulse 112; Resp 18; Temp 97.9(O); Pulse Ox 99% on R/A; Pain jp3 6/10; 12:39 Body Mass Index 25.61 (63.50 kg, 157.48 cm) ED Course: 12:30 Patient arrived in ED. mr 12:39 Triage completed. 12:39 Arm band placed on right wrist. 12:59 Pedrito Dumont, SREEDHAR is Primary Nurse. mg2 13:04 Norberto Aguirre MD is Attending Physician. [facility] 13:04 Bed in low position. Call light in reach. Side rails up X 1. Verbal reassurance given. jp3 Pulse ox on. NIBP on. 14:06 No provider procedures requiring assistance completed. Patient did not have IV access mg2 during this emergency room visit. 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 Exp: mg2 11/15/2020. Lot #: [id number]. } Route: IM; Site: right deltoid; 14:02 Follow up: Response: No adverse reaction; Medication administered at discharge. mg2 14:00 Drug: Bactroban Ointment 2 % 1 application Route: Topical; Site: wound; mg2 14:02 Follow up: Response: No adverse reaction; Medication administered at discharge. mg2 14:00 Drug: Benadryl 25 mg Route: PO; mg2 14:02 Follow up: Response: No adverse reaction; Medication administered at discharge. mg2 14:01 Drug: Bactrim (160 mg-800 mg (DS) 1 tablet Route: PO; mg2 14:02 Follow up: Response: No adverse reaction; Medication administered at discharge. mg2 Outcome: 13:47 Discharge ordered by . melinda 14:06 Discharged to home ambulatory, with family. mg2 14:06 Condition: stable 14:06 Discharge instructions given to patient, family, Instructed on discharge instructions, follow up and referral plans. medication usage, Demonstrated understanding of instructions, follow-up care, medications, Prescriptions given X 3. 14:07 Patient left the ED. mg2 Signatures: Norberto Aguirre MD MD cha Rivera, Mary mr Angelito Celis, RN RN Pedrito Dumont, SREEDHAR RN mg2 Henrik Narayanan jp3 Corrections: (The following items were deleted from the chart) 12:53 12:37 Acuity: FÉLIX 4 anat coppola 13:23 13:04 Pulse ox on. NIBP on. jp3 jp3 13:23 13:04 Ice pack to injury. Verbal reassurance given. jp3 jp3
[2019-02-10] MEDS ORDERED: MUPIROCIN 2% OINT 22GM TUBE TOP ONE (14:07)
[2019-02-10] MEDS ORDERED: DIPHENHYDRAMINE 25 MG TAB/CAP ONE (14:07)
[2019-02-10] MEDS ORDERED: SMZ./TMP. 800/160 MG TABLET ONE (14:07)
[2019-02-10] MEDS ORDERED: TETANUS & DIPHTHERIA TOX,ADULT 0.5 ML VIAL ONE (14:07)
[2019-02-10] MEDS ORDERED: LIDOCAINE 1% MPF 5 ML VIAL ONE (15:46)
== END 2019-02-10 14:07 | disposition home or self-care (01) ==
LOC: ER 12:24
DX: S80.862A Insect bite (nonvenomous), left lower leg, initial encounter (principal); L03.116 Cellulitis of left lower limb; I89.1 Lymphangitis; Z23 Encounter for immunization
CPT/HCPCS: 90471; 90714; 99283

== ENCOUNTER 2019-02-16 19:56 | Emergency (ER) | payer OTHER ==
[2019-02-16] MEDS ORDERED: IBUPROFEN 400 MG TAB ONE (20:53)
[2019-02-16] MEDS ORDERED: IBUPROFEN 200 MG TAB PO ONE (20:53)
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
== END 2019-02-16 21:40 | disposition home or self-care (01) ==
LOC: ER 19:56
DX: S16.1XXA Strain of muscle, fascia and tendon at neck level, initial encounter (principal); S29.011A Strain of muscle and tendon of front wall of thorax, initial encounter; S29.012A Strain of muscle and tendon of back wall of thorax, initial encounter; M41.9 Scoliosis, unspecified; S60.221A Contusion of right hand, initial encounter; V49.9XXA Car occupant (driver) (passenger) injured in unspecified traffic accident, initial encounter
CPT/HCPCS: 71045; 72040; 99284

== ENCOUNTER 2019-07-27 18:34 | Emergency (ER) | payer OTHER ==
--- OUTSIDE RECORDS SUMMARY | 2019-07-27 18:37 | XMS REPORT ---
:1975 [facility] Address [address] [place] [address] [address]. Barrios [address] [place] [address] Care Team Providers Name Role Phone Unavailable Unavailable Unavailable Problems This patient has no known problems. Allergies, Adverse Reactions, Alerts This patient has no known allergies or adverse reactions. Medications This patient has no known medications.
[2019-07-27] MEDS ORDERED: MORPHINE 4 MG/ML SYR ONE (19:12)
[2019-07-27] MEDS ORDERED: ONDANSETRON 4 MG/2 ML VIAL ONE (19:12)
[2019-07-27 19:24] LABS: Absolute Lymphocytes (CBC) 2.4 K/uL (0.7-4.9); Basophils % 1.1 % (0-1.3); Hematocrit 40.4 % (36.0-45.0); Lymphocytes % 39.6 % (15.3-44.8); MPV 9.1 fL (7.6-11.3); RBC Red Blood Cell Count 4.52 M/uL (3.86-4.86)
[2019-07-27 19:32] LABS: Protime INR 0.93
[2019-07-27 19:46] LABS: ALT/SGPT 34 U/L (12-78); AST/SGOT 19 U/L (15-37); Albumin 4.3 g/dL (3.4-5.0); Alkaline Phosphatase 77 U/L (45-117); BUN Blood Urea Nitrogen 13 mg/dL (7-18); Bicarbonate 27 mmol/L (21-32); Bilirubin Direct < 0.1 mg/dL (0-0.2); Bilirubin Total 0.3 mg/dL (0.2-1.0); Glucose Level 86 mg/dL (74-106); Magnesium 1.9 mg/dL (1.8-2.4); NT PRO-BNP 26 pg/mL (<125); Potassium 3.7 mmol/L (3.5-5.1); Protein, Total 7.7 g/dL (6.4-8.2); Sodium Level 141 mmol/L (136-145); Troponin (Emerg Dept Use Only) < 0.02 ng/mL (0.0-0.045)
--- NOTE | 2019-07-27 19:54 | RAD REPORT ---
EXAM DESCRIPTION: RAD - Chest Single View - 07/27/2019 7:41 pm CLINICAL HISTORY: CHEST PAIN Chest pain. COMPARISON: Chest Single View dated 02/16/2019 FINDINGS: Portable technique limits examination quality. The lungs are grossly clear. The heart is normal in size. No displaced fractures. IMPRESSION: No acute intrathoracic process suspected.
[2019-07-27] MEDS ORDERED: FENTANYL CITR 100 MCG/2 ML ONE (22:28)
[2019-07-27] MEDS ORDERED: DIPHENHYDRAMINE 50 MG/ML VIAL ONE (23:31)
--- NOTE | 2019-07-27 23:57 | EDPHYS ---
Physician Documentation [facility] Name: Joy Strauss Age: 44 yrs Sex: Female : 1975 Arrival Date: 07/27/2019 Time: 18:37 Bed 2 Private MD: ED Physician Surya Caldera HPI: 07/27 19:05 This 44 yrs old Female presents to ER via Wheelchair with complaints of Chest pm1 Pain. 19:05 The patient or guardian reports chest pain that is located primarily in the xyphoid pm1 area and mid-sternal area. Onset: just prior to arrival, today. The pain does not radiate. Associated signs and symptoms: Pertinent positives: palpitations, shortness of breath, Pertinent negatives: abdominal pain, cough, diaphoresis, dizziness, headache, nausea, vomiting. The chest pain is described as sharp. Duration: The patient or guardian reports a single episode, that is still ongoing. Modifying factors: the symptoms are aggravated by deep breath, palpation of area. The patient has not experienced similar symptoms in the past. The patient has not recently seen a physician. Historical: - Allergies: 18:44 NKA; aa5 - PMHx: 18:44 Back pain; Chronic pain; scoliosis; aa5 - PSHx: 18:44 L 3-5 fusion; Cholecystectomy; Tubal ligation; aa5 - Immunization history:: Flu vaccine is not up to date. - Social history:: Smoking status: Patient/guardian denies using tobacco. - Ebola Screening: : No symptoms or risks identified at this time. ROS: 19:05 Constitutional: Negative for fever, chills, and weight loss, Eyes: Negative for injury, pm1 pain, redness, and discharge, ENT: Negative for injury, pain, and discharge, Neck: Negative for injury, pain, and swelling. 19:05 Cardiovascular: Positive for chest pain, palpitations, Negative for edema, orthopnea, palpitations. 19:05 Abdomen/GI: Negative for abdominal pain, nausea, vomiting, diarrhea, and constipation, pm1 Back: Negative for injury and pain, : Negative for injury, bleeding, discharge, and swelling, MS/Extremity: Negative for injury and deformity, Skin: Negative for injury, rash, and discoloration, Neuro: Negative for headache, weakness, numbness, tingling, and seizure. 19:05 Respiratory: Positive for shortness of breath, Negative for cough, sputum production, wheezing. Exam: 19:05 Constitutional: This is a well developed, well nourished patient who is awake, alert, pm1 and in no acute distress. Head/Face: Normocephalic, atraumatic. Eyes: Pupils equal round and reactive to light, extra-ocular motions intact. Lids and lashes normal. Conjunctiva and sclera are non-icteric and not injected. Cornea within normal limits. Periorbital areas with no swelling, redness, or edema. ENT: Nares patent. No nasal discharge, no septal abnormalities noted. Tympanic membranes are normal and external auditory canals are clear. Oropharynx with no redness, swelling, or masses, exudates, or evidence of obstruction, uvula midline. Mucous membranes moist. Neck: Trachea midline, no thyromegaly or masses palpated, and no cervical lymphadenopathy. Supple, full range of motion without nuchal rigidity, or vertebral point tenderness. No Meningismus. 19:05 Cardiovascular: Regular rate and rhythm with a normal S1 and S2. No gallops, murmurs, or rubs. Normal PMI, no JVD. No pulse deficits. Respiratory: Lungs have equal breath sounds bilaterally, clear to auscultation and percussion. No rales, rhonchi or wheezes noted. No increased work of breathing, no retractions or nasal flaring. Abdomen/GI: Soft, non-tender, with normal bowel sounds. No distension or tympany. No guarding or rebound. No evidence of tenderness throughout. Back: No spinal tenderness. No costovertebral tenderness. Full range of motion. Skin: Warm, dry with normal turgor. Normal color with no rashes, no lesions, and no evidence of cellulitis. MS/ Extremity: Pulses equal, no cyanosis. Neurovascular intact. Full, normal range of motion. 19:05 Chest/axilla: Inspection: normal, Palpation: crepitus, is not appreciated, tenderness, that is mild, of the xyphoid area and mid-sternal area, that totally reproduces the patient's complaints. 19:05 Neuro: Orientation: is normal, Motor: is normal, moves all fours. 19:15 ECG was reviewed by the Attending Physician. pm1 Vital Signs: 18:44 BP 138 / 72; Pulse 98; Resp 18 S; Temp 98.1(TE); Pulse Ox 98% on R/A; Weight 67.13 kg aa5 (R); Height 5 ft. 2 in. (157.48 cm) (R); Pain 8/10; 19:00 BP 131 / 95; Pulse 75; Resp 18; Pulse Ox 98% on R/A; ea 20:21 BP 99 / 74; Pulse 89; Resp 18; Pulse Ox 100% ; ea 20:25 Temp 97.9(TE); ea 21:12 BP 105 / 65; Pulse 78; Resp 18; Pulse Ox 99% on R/A; ea 22:13 BP 103 / 52; Pulse 87; Resp 18; Pulse Ox 100% ; ea 23:37 BP 107 / 67; Pulse 71; Resp 19; Temp 98(TE); Pulse Ox 99% on R/A; ea 07/28 00:02 BP 106 / 71; Pulse 72; Resp 18; Temp 97.7; Pulse Ox 98% on R/A; ea 07/27 18:44 Body Mass Index 27.07 (67.13 kg, 157.48 cm) aa5 MDM: 07/27 19:14 Patient medically screened. pm1 23:56 Data reviewed: vital signs. Data interpreted: Pulse oximetry: on room air is 99 %. pm1 Interpretation: normal. Counseling: I had a detailed discussion with the patient and/or guardian regarding: the historical points, exam findings, and any diagnostic results supporting the discharge/admit diagnosis, lab results, radiology results, the need for outpatient follow up, to return to the emergency department if symptoms worsen or persist or if there are any questions or concerns that arise at home. 07/27 19:00 Order name: Basic Metabolic Panel; Complete Time: 19:50 pm1 07/27 19:00 Order name: CBC with Diff; Complete Time: 19:31 pm1 07/27 19:00 Order name: LFT's; Complete Time: 19:50 pm1 07/27 19:00 Order name: Magnesium; Complete Time: 19:50 pm1 07/27 19:00 Order name: NT PRO-BNP; Complete Time: 19:50 pm1 07/27 19:00 Order name: PT-INR; Complete Time: 19:50 pm1 07/27 19:00 Order name: Troponin (emerg Dept Use Only); Complete Time: 19:50 pm1 07/27 19:00 Order name: XRAY Chest (1 view); Complete Time: 20:06 pm1 07/27 20:52 Order name: D-Dimer; Complete Time: 22:20 ea 07/27 22:59 Order name: Troponin (emerg Dept Use Only): Draw at 2315; Complete Time: 23:56 pm1 07/27 19:00 Order name: EKG; Complete Time: 19:02 pm1 07/27 19:00 Order name: Cardiac monitoring; Complete Time: 19:16 pm1 07/27 19:00 Order name: EKG - Nurse/Tech; Complete Time: 19:16 pm1 07/27 19:00 Order name: IV Saline Lock; Complete Time: 19:16 pm1 07/27 19:00 Order name: Labs collected and sent; Complete Time: 19:16 pm1 07/27 19:00 Order name: O2 Per Protocol; Complete Time: 19:16 pm1 07/27 19:00 Order name: O2 Sat Monitoring; Complete Time: 19:16 pm1 EC:15 Rate is 83 beats/min. Rhythm is regular, Normal Sinus Rhythm with No ectopy. No Q pm1 waves. T waves are Normal. No ST changes noted. Clinical impression: Normal ECG. Administered Medications: 19:12 Drug: Zofran 4 mg Route: IVP; Site: right forearm; ea 19:58 Follow up: Response: No adverse reaction ea 19:18 Drug: morphine 4 mg Route: IVP; Site: right forearm; ea 19:57 Follow up: Response: No adverse reaction; Pain is decreased; RASS: Alert and Calm (0) ea 22:31 Drug: fentaNYL (PF) 25 mcg {Note: RASS 0.} Route: IVP; Site: right forearm; ea 23:33 Follow up: Response: No adverse reaction; Pain is decreased ea 07/28 00:03 Follow up: Response: No adverse reaction; Pain is decreased; RASS: Alert and Calm (0) ea 07/27 23:33 Drug: Benadryl 12.5 mg Route: IVP; Site: right forearm; ea 07/28 00:03 Follow up: Response: No adverse reaction ea 00:20 Drug: Ketorolac 15 mg Route: IVP; Site: right forearm; ea 00:46 Follow up: Response: No adverse reaction; Pain is decreased ea Disposition: 07:24 Co-signature as Attending Physician, Surya Caldera MD I agree with the assessment and kdr plan of care. Disposition: 07/27/19 23:57 Discharged to Home. Impression: Chest pain, unspecified. - Condition is Stable. - Discharge Instructions: Nonspecific Chest Pain. - Medication Reconciliation Form, Thank You Letter, Antibiotic Education, Prescription Opioid Use, Family Work Release form. - School release form (07/28/19 16:57). bd - Follow up: Emergency Department; When: As needed; Reason: Worsening of condition. Follow up: Private Physician; When: 2 - 3 days; Reason: Recheck today's complaints, Continuance of care, Re-evaluation by your physician. - Problem is new. - Symptoms have improved. Signatures: Dispatcher [employer] EDIL Surya Caldera MD MD [facility] [address] Paty Walters RN RN aa5 Lito Jerome NP SMOKING TOBACCO CUTTER OPERATOR pm1 Dory Navarrete RN RN ea Dirrim, Barbara bd Corrections: (The following items were deleted from the chart) 07/27 19:17 19:02 MAGNESIUM+C.LAB.BRZ ordered. [facility] 07/28 00:47 07/27 23:57 07/27/2019 23:57 Discharged to Home. Impression: Chest pain, unspecified. ea Condition is Stable. Forms are Medication Reconciliation Form, Thank You Letter, Antibiotic Education, Prescription Opioid Use. Follow up: Emergency Department; When: As needed; Reason: Worsening of condition. Follow up: Private Physician; When: 2 - 3 days; Reason: Recheck today's complaints, Continuance of care, Re-evaluation by your physician. Problem is new. Symptoms have improved. pm1 07/28 03:45 07/27 19:05 Associated signs and symptoms: Pertinent positives: shortness of breath, pm1 Pertinent negatives: abdominal pain, cough, diaphoresis, dizziness, headache, nausea, vomiting, pm1 07/28 03:46 07/27 19:05 Cardiovascular: Positive for chest pain, Negative for edema, orthopnea, pm1 palpitations, pm1
--- NOTE | 2019-07-27 23:57 | ER ---
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 Pt states aa5 "I feel my heart racing". 18:43 Transition of care: patient was not received from another setting of care. aa5 18:43 Method Of Arrival: Wheelchair aa5 18:43 Acuity: FÉLIX 3 aa5 18:43 Onset of symptoms was July 27, 2019. Risk Assessment: Do you want to hurt yourself aa5 or someone else? Patient reports no desire to harm self or others. Initial Sepsis Screen: Does the patient meet any 2 criteria? HR > 90 bpm. Does the patient have a suspected source of infection? No. Patient's initial sepsis screen is negative. Care prior to arrival: None. Historical: - Allergies: 18:44 NKA; aa5 - PMHx: 18:44 Back pain; Chronic pain; scoliosis; aa5 - PSHx: 18:44 L 3-5 fusion; Cholecystectomy; Tubal ligation; aa5 - Immunization history:: Flu vaccine is not up to date. - Social history:: Smoking status: Patient/guardian denies using tobacco. - Ebola Screening: : No symptoms or risks identified at this time. Screenin:27 Abuse screen: Denies threats or abuse. Nutritional screening: No deficits noted. ea Tuberculosis screening: No symptoms or risk factors identified. Fall Risk IV access (20 points). Assessment: 19:27 General: Appears uncomfortable, Behavior is appropriate for age. Pain: Complains of ea pain in chest Pain does not radiate. Pain currently is 9 out of 10 on a pain scale. Quality of pain is described as pressure, Pain began 1 hour ago. Neuro: Level of Consciousness is awake, alert, obeys commands, Oriented to person, place, time, situation. Cardiovascular: Patient's skin is warm and dry. Derm: Skin is pink, warm \\T\\ dry. 20:21 Reassessment: Patient and/or family updated on plan of care and expected duration. Pain ea level reassessed. Patient is alert, oriented x 3, equal unlabored respirations, skin warm/dry/pink. 21:00 Reassessment: Patient and/or family updated on plan of care and expected duration. Pain ea level reassessed. Patient is alert, oriented x 3, equal unlabored respirations, skin warm/dry/pink. Provider at bedside updating pt on plan of care. 22:03 Reassessment: Patient and/or family updated on plan of care and expected duration. Pain ea level reassessed. Patient is alert, oriented x 3, equal unlabored respirations, skin warm/dry/pink. Awaiting to repeat trop at 2311. 23:36 Reassessment: Patient and/or family updated on plan of care and expected duration. Pain ea level reassessed. Patient is alert, oriented x 3, equal unlabored respirations, skin warm/dry/pink. Awaiting on repeat troponin results Patient states feeling better. 07/28 00:02 Reassessment: Patient and/or family updated on plan of care and expected duration. Pain ea level reassessed. Patient is alert, oriented x 3, equal unlabored respirations, skin warm/dry/pink. Patient states feeling better. 00:21 Reassessment: Patient and/or family updated on plan of care and expected duration. Pain ea level reassessed. Patient is alert, oriented x 3, equal unlabored respirations, skin warm/dry/pink. Discharge instruction given to patient, verbalized the understanding of discharge instruction. Pt awaiting on for transportation Patient states feeling better. 00:46 Reassessment: Patient and/or family updated on plan of care and expected duration. Pain ea level reassessed. Patient is alert, oriented x 3, equal unlabored respirations, skin warm/dry/pink. Pt left ED ambulatory accompanied by family. Pt tolerating well. Vital Signs: 07/27 18:44 BP 138 / 72; Pulse 98; Resp 18 S; Temp 98.1(TE); Pulse Ox 98% on R/A; Weight 67.13 kg aa5 (R); Height 5 ft. 2 in. (157.48 cm) (R); Pain 8/10; 19:00 BP 131 / 95; Pulse 75; Resp 18; Pulse Ox 98% on R/A; ea 20:21 BP 99 / 74; Pulse 89; Resp 18; Pulse Ox 100% ; ea 20:25 Temp 97.9(TE); ea 21:12 BP 105 / 65; Pulse 78; Resp 18; Pulse Ox 99% on R/A; ea 22:13 BP 103 / 52; Pulse 87; Resp 18; Pulse Ox 100% ; ea 23:37 BP 107 / 67; Pulse 71; Resp 19; Temp 98(TE); Pulse Ox 99% on R/A; ea 07/28 00:02 BP 106 / 71; Pulse 72; Resp 18; Temp 97.7; Pulse Ox 98% on R/A; ea 07/27 18:44 Body Mass Index 27.07 (67.13 kg, 157.48 cm) aa5 ED Course: 07/27 18:37 Patient arrived in ED. mr 18:43 Arm band placed on. aa5 18:45 Triage completed. aa5 18:47 Lito Jerome NP is PHCP. pm1 18:47 Surya Caldera MD is Attending Physician. pm1 19:11 Inserted saline lock: 22 gauge in right forearm, using aseptic technique. Blood ea collected. Patient maintains SpO2 saturation greater than 95% on room air. 19:16 Troponin (emerg Dept Use Only) Sent. ds4 19:16 PT-INR Sent. ds4 19:16 NT PRO-BNP Sent. ds4 19:17 LFT's Sent. ds4 19:17 CBC with Diff Sent. ds4 19:17 Basic Metabolic Panel Sent. ds4 19:17 EKG done, by ED staff, reviewed by Doc Amaral MD. ds4 19:26 Dory Navarrete, RN is Primary Nurse. ea 19:27 Patient has correct armband on for positive identification. Placed in gown. Bed in low ea position. Call light in reach. Side rails up X 1. court monitor on. Pulse ox on. NIBP on. 19:45 XRAY Chest (1 view) In Process Unspecified. EDMS 07/28 00:20 No provider procedures requiring assistance completed. ea 00:35 IV discontinued, intact, bleeding controlled, No redness/swelling at site. Pressure ea dressing applied. Administered Medications: 07/27 19:12 Drug: Zofran 4 mg Route: IVP; Site: right forearm; ea 19:58 Follow up: Response: No adverse reaction ea 19:18 Drug: morphine 4 mg Route: IVP; Site: right forearm; ea 19:57 Follow up: Response: No adverse reaction; Pain is decreased; RASS: Alert and Calm (0) ea 22:31 Drug: fentaNYL (PF) 25 mcg {Note: RASS 0.} Route: IVP; Site: right forearm; ea 23:33 Follow up: Response: No adverse reaction; Pain is decreased ea 07/28 00:03 Follow up: Response: No adverse reaction; Pain is decreased; RASS: Alert and Calm (0) ea 07/27 23:33 Drug: Benadryl 12.5 mg Route: IVP; Site: right forearm; ea 07/28 00:03 Follow up: Response: No adverse reaction ea 00:20 Drug: Ketorolac 15 mg Route: IVP; Site: right forearm; ea 00:46 Follow up: Response: No adverse reaction; Pain is decreased ea Outcome: 07/27 23:57 Discharge ordered by MD. pm1 07/28 00:22 Discharge instructions given to patient, Instructed on discharge instructions, follow ea up and referral plans. Demonstrated understanding of instructions, follow-up care. 00:45 Discharged to home ambulatory, with family. ea 00:45 Condition: stable 00:47 Patient left the ED. ea Signatures: Dispatcher [employer] EDJennifer Blake RomeoPaty, RN RN aa5 Maurice Manuel ds4 Lito Jerome, YARD MANAGER YARD MANAGER pm1 Dory Navarrete RN RN ea Corrections: (The following items were deleted from the chart) 07/27 18:45 18:44 Temp 98.1F Temporal; 67.13 kg Reported; Height 5 ft. 2 in. Reported; BMI: 27.0; aa5 Pain 04/04; aa5 19:17 19:17 MAGNESIUM+C.LAB.BRZ drawn and sent. ds4 APURVA
[2019-07-28] MEDS ORDERED: KETOROLAC 30 MG/ML INJ ONE (00:16)
[2019-07-28 04:24] VITALS: BP 106/71; TEMP 97.7; O2SAT 98
--- NOTE | 2019-07-28 08:02 | EKG ---
Test Date: 2019-07-27 Test Time: 19:10:48 Laboratory Geneticist: MANDEEP MEASUREMENT RESULTS: Intervals: Rate: 83 IL: 112 QRSD: 72 QT: 376 QTc: 441 Saxe: P: 54 IL: 112 QRS: 75 T: 55 INTERPRETIVE STATEMENTS: Normal sinus rhythm Normal ECG Compared to ECG 08/23/2004 08:15:00 Sinus tachycardia no longer present Electronically Signed On 07-28-19 08:01:12 SCALEHOUSE ATTENDANT by Ricardo Hernandez
== END 2019-07-28 00:47 | disposition home or self-care (01) ==
LOC: ER 18:34
DX: R07.9 Chest pain, unspecified (principal)
CPT/HCPCS: 36415; 71045; 80048; 80076; 83735; 83880; 84484; 85025; 85379; 85610; 93005; 96374; 96375; 99285; J1200; J2405; J3010

== ENCOUNTER 2019-09-07 10:15 | Emergency (ER) | payer OTHER ==
--- OUTSIDE RECORDS SUMMARY | 2019-09-07 10:17 | XMS REPORT ---
:1975 [facility] [address] [place] [address] Dr. [address]rios [address] [place] [address] Care Team Providers Name Role Phone Unavailable Unavailable Unavailable Problems This patient has no known problems. Allergies, Adverse Reactions, Alerts This patient has no known allergies or adverse reactions. Medications This patient has no known medications.
--- NOTE | 2019-09-07 12:12 | ER ---
Nurse's Notes [facility] Name: Joy Strauss Age: 44 yrs Sex: Female : 1975 Arrival Date: 09/07/2019 Time: 10:24 Bed 23 Private MD: Diagnosis: Pain in ankle and joints of foot Presentation: 09/07 10:28 Presenting complaint: Patient states: Saturday stepped out of bathtub and has had pain in iw left foot since then, denies injuring it, pain is getting worse and radiates throughout foot, throbbing pain. Transition of care: patient was not received from another setting of care. Onset of symptoms was September 05, 2019. Risk Assessment: Do you want to hurt yourself or someone else? Patient reports no desire to harm self or others. Initial Sepsis Screen: Does the patient meet any 2 criteria? No. Patient's initial sepsis screen is negative. Does the patient have a suspected source of infection? No. Patient's initial sepsis screen is negative. Care prior to arrival: None. 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 - Ebola Screening: : Patient negative for fever greater than or equal to 101.5 degrees Fahrenheit, and additional compatible Ebola Virus Disease symptoms Patient denies exposure to infectious person Patient denies travel to an Ebola-affected area in the 21 days before illness onset No symptoms or risks identified at this time. - Social history:: Smoking status: Patient/guardian denies using tobacco. Screenin:47 Abuse screen: Denies threats or abuse. Denies injuries from another. Nutritional ca1 screening: No deficits noted. Tuberculosis screening: No symptoms or risk factors identified. Fall Risk None identified. Assessment: 10:47 General: Appears in no apparent distress. comfortable, Behavior is calm, cooperative, ca1 appropriate for age. Pain: Complains of pain in arch of left foot Pain radiates to lateral side of left foot Pain currently is 6 out of 10 on a pain scale. Quality of pain is described as throbbing, Pain began 2-3 days ago. Is intermittent. Neuro: Level of Consciousness is awake, alert, obeys commands, Oriented to person, place, time, situation, Appropriate for age. Derm: Skin is intact, is healthy with good turgor, Skin is pink, warm \T\ dry. Musculoskeletal: Circulation, motion, and sensation intact. Capillary refill < 3 seconds, Range of motion: intact in all extremities, Swelling absent. 11:28 Reassessment: Patient appears in no apparent distress at this time. Patient and/or ca1 family updated on plan of care and expected duration. Pain level reassessed. Patient is alert, oriented x 3, equal unlabored respirations, skin warm/dry/pink. Xray at bedside. 12:19 Reassessment: Patient appears in no apparent distress at this time. Patient is alert, ca1 oriented x 3, equal unlabored respirations, skin warm/dry/pink. Vital Signs: 10:30 BP 130 / 74; Pulse 100; Resp 16; Temp 98.3; Pulse Ox 100% on R/A; Weight 65.77 kg; iw Height 5 ft. 2 in. (157.48 cm); Pain 6/10; 11:28 BP 122 / 76; Pulse 96; Resp 17 S; Pulse Ox 100% on R/A; ca1 12:19 BP 117 / 73; Pulse 90; Resp 17 S; Pulse Ox 100% on R/A; ca1 10:30 Body Mass Index 26.52 (65.77 kg, 157.48 cm) iw ED Course: 10:24 Patient arrived in ED. mr 10:28 Deysi Keane, [facility] snw 10:29 Brooks Saleh MD is Attending Physician. snw 10:29 Triage completed. iw 10:30 Arm band placed on. iw 10:36 Susan Nair, RN is Primary Nurse. ca1 10:47 Patient has correct armband on for positive identification. Bed in low position. Call ca1 light in reach. Side rails up X 1. Pulse ox on. NIBP on. Warm blanket given. 10:47 No provider procedures requiring assistance completed. Patient did not have IV access ca1 during this emergency room visit. 12:06 Foot Left 3 View XRAY In Process Unspecified. EDMS Administered Medications: 12:15 Drug: TORadol 30 mg Route: IM; Site: right gluteus; ca1 12:16 Follow up: Response: Medication administered at discharge. ca1 Outcome: 12:11 Discharge ordered by . gold 12:20 Discharged to home ambulatory. ca1 12:20 Condition: stable 12:20 Discharge instructions given to patient, Instructed on discharge instructions, follow up and referral plans. medication usage, Demonstrated understanding of instructions, follow-up care, medications, Prescriptions given X 1. 12:20 Patient left the ED. ca1 Signatures: Dispatcher [employer] EDMS Deysi Keane, CYNDIEC PICTURE ENLARGER-Jennifer Benton Irene, RN RN iw Susan Nair RN RN ca1
[2019-09-07] MEDS ORDERED: KETOROLAC 30 MG/ML INJ ONE (12:13)
--- NOTE | 2019-09-07 12:13 | EDPHYS ---
Physician Documentation [facility] Name: Joy Strauss Age: 44 yrs Sex: Female : 1975 Arrival Date: 09/07/2019 Time: 10:24 Bed 23 Private MD: ED Physician Brooks Saleh HPI: 09/07 11:03 This 44 yrs old Female presents to ER via Ambulatory with complaints of Foot snw Pain. 11:03 The patient presents with pain, that is acute. The complaints affect the lateral aspect snw of left foot and medial aspect of left foot. Context: The problem was sustained at home, resulted from pt stepped out of bathtub and had pain to arch and left lateral foot. Pain continues x 3 days, the patient can partially bear weight, the patient is able to ambulate, Problem is a result from a previous injury: No. Onset: The symptoms/episode began/occurred suddenly, 3 day(s) ago, and became persistent. Associated signs and symptoms: The patient has no apparent associated signs or symptoms. Severity of symptoms: At their worst the symptoms were mild. It is unknown whether or not the patient has had similar symptoms in the past. It is unknown whether or not the patient has recently seen a physician. [employer] [place]: 10:30 LMP 08/26/2019 iw Historical: - Allergies: 10:30 NKA; iw - Home Meds: 10:30 Hydrocodone-Acetaminophen Oral [Active]; tizanidine oral oral [Active]; Imitrex Oral iw [Active]; - PMHx: 10:30 Back pain; Chronic pain; scoliosis; RA; iw - PSHx: 10:30 L 3-5 fusion; Cholecystectomy; Tubal ligation; iw - Immunization history:: Adult Immunizations up to date. - Ebola Screening: : Patient negative for fever greater than or equal to 101.5 degrees Fahrenheit, and additional compatible Ebola Virus Disease symptoms Patient denies exposure to infectious person Patient denies travel to an Ebola-affected area in the 21 days before illness onset No symptoms or risks identified at this time. - Social history:: Smoking status: Patient/guardian denies using tobacco. ROS: 11:03 Constitutional: Negative for fever, chills, and weight loss, Eyes: Negative for injury, snw pain, redness, and discharge, ENT: Negative for injury, pain, and discharge, Neck: Negative for injury, pain, and swelling, Cardiovascular: Negative for chest pain, palpitations, and edema, Respiratory: Negative for shortness of breath, cough, wheezing, and pleuritic chest pain, Abdomen/GI: Negative for abdominal pain, nausea, vomiting, diarrhea, and constipation, Back: Negative for injury and pain, : Negative for injury, bleeding, discharge, and swelling, Skin: Negative for injury, rash, and discoloration, Neuro: Negative for headache, weakness, numbness, tingling, and seizure, Psych: Negative for depression, anxiety, suicide ideation, homicidal ideation, and hallucinations. 11:03 MS/extremity: Positive for pain, of the lateral side of left foot and arch of left foot. Exam: 11:02 Constitutional: This is a well developed, well nourished patient who is awake, alert, snw and in no acute distress. Head/Face: Normocephalic, atraumatic. Eyes: Pupils equal round and reactive to light, extra-ocular motions intact. Lids and lashes normal. Conjunctiva and sclera are non-icteric and not injected. Cornea within normal limits. Periorbital areas with no swelling, redness, or edema. ENT: Nares patent. No nasal discharge, no septal abnormalities noted. Tympanic membranes are normal and external auditory canals are clear. Oropharynx with no redness, swelling, or masses, exudates, or evidence of obstruction, uvula midline. Mucous membranes moist. Neck: Trachea midline, no thyromegaly or masses palpated, and no cervical lymphadenopathy. Supple, full range of motion without nuchal rigidity, or vertebral point tenderness. No Meningismus. Chest/axilla: Normal chest wall appearance and motion. Nontender with no deformity. No lesions are appreciated. Cardiovascular: Regular rate and rhythm with a normal S1 and S2. No gallops, murmurs, or rubs. Normal PMI, no JVD. No pulse deficits. Respiratory: Lungs have equal breath sounds bilaterally, clear to auscultation and percussion. No rales, rhonchi or wheezes noted. No increased work of breathing, no retractions or nasal flaring. Abdomen/GI: Soft, non-tender, with normal bowel sounds. No distension or tympany. No guarding or rebound. No evidence of tenderness throughout. Back: No spinal tenderness. No costovertebral tenderness. Full range of motion. Skin: Warm, dry with normal turgor. Normal color with no rashes, no lesions, and no evidence of cellulitis. Neuro: Awake and alert, GCS 15, oriented to person, place, time, and situation. Cranial nerves II-XII grossly intact. Motor strength 5/5 in all extremities. Sensory grossly intact. Cerebellar exam normal. Normal gait. Psych: Awake, alert, with orientation to person, place and time. Behavior, mood, and affect are within normal limits. 11:02 Musculoskeletal/extremity: Extremities: grossly normal except: noted in the lateral side of left foot and arch of left foot: tenderness, ROM: full active range of motion, Circulation is intact in all extremities. Sensation intact. Vital Signs: 10:30 BP 130 / 74; Pulse 100; Resp 16; Temp 98.3; Pulse Ox 100% on R/A; Weight 65.77 kg; iw Height 5 ft. 2 in. (157.48 cm); Pain 6/10; 11:28 BP 122 / 76; Pulse 96; Resp 17 S; Pulse Ox 100% on R/A; ca1 12:19 BP 117 / 73; Pulse 90; Resp 17 S; Pulse Ox 100% on R/A; ca1 10:30 Body Mass Index 26.52 (65.77 kg, 157.48 cm) iw MDM: 10:34 Patient medically screened. snw 12:12 Data reviewed: vital signs, nurses notes. Data interpreted: Pulse oximetry: on room air snw is 100 %. Interpretation: normal. Counseling: I had a detailed discussion with the patient and/or guardian regarding: the historical points, exam findings, and any diagnostic results supporting the discharge/admit diagnosis, radiology results, the need for outpatient follow up, to return to the emergency department if symptoms worsen or persist or if there are any questions or concerns that arise at home. Special discussion: Based on the history and exam findings, there is no indication for further emergent testing or inpatient evaluation. I discussed with the patient/guardian the need to see the primary care provider for further evaluation of the symptoms. 09/07 10:35 Order name: Foot Left 3 View XRAY snw Administered Medications: 12:15 Drug: TORadol 30 mg Route: IM; Site: right gluteus; ca1 12:16 Follow up: Response: Medication administered at discharge. ca1 Disposition: 17:22 Co-signature as Attending Physician, Brooks Saleh MD. rn Disposition: 09/07/19 12:11 Discharged to Home. Impression: Pain in ankle and joints of foot. - Condition is Stable. - Discharge Instructions: Foot Sprain, Cryotherapy. - Prescriptions for Diclofenac Sodium 75 mg Oral Tablet Sustained Release - take 1 tablet by ORAL route 2 times per day; 30 tablet. - Medication Reconciliation Form, Thank You Letter, Antibiotic Education, Prescription Opioid Use form. - Follow up: Emergency Department; When: As needed; Reason: Worsening of condition. Follow up: Private Physician; When: 2 - 3 days; Reason: Recheck today's complaints, Continuance of care, Re-evaluation by your physician. Signatures: Dispatcher [employer] EDMS Deysi Keane, GLORIA-C GLOBAL MANAGER-Csnw Yenny Morrissey RN RN iw Nieto, Roman, MD MD rn AcobSusan RN RN ca1 Corrections: (The following items were deleted from the chart) 12:20 12:11 09/07/2019 12:11 Discharged to Home. Impression: Pain in ankle and joints of ca1 foot. Condition is Stable. Forms are Medication Reconciliation Form, Thank You Letter, Antibiotic Education, Prescription Opioid Use. Follow up: Emergency Department; When: As needed; Reason: Worsening of condition. Follow up: Private Physician; When: 2 - 3 days; Reason: Recheck today's complaints, Continuance of care, Re-evaluation by your physician. snw
--- NOTE | 2019-09-07 12:30 | RAD REPORT ---
EXAM DESCRIPTION: RAD - Foot Left 3 View - 09/07/2019 12:05 pm CLINICAL HISTORY: Lateral left foot pain following trauma COMPARISON: None. FINDINGS: No fracture, dislocation or periosteal reaction. No acute or destructive bony process. No air or foreign body in the soft tissues. IMPRESSION: Negative left foot examination.
[2019-09-07 12:41] VITALS: TEMP 98.3; O2SAT 100
[2019-09-07 12:44] VITALS: BP 117/73
== END 2019-09-07 12:20 | disposition home or self-care (01) ==
LOC: ER 10:15
DX: M25.572 Pain in left ankle and joints of left foot (principal); M06.9 Rheumatoid arthritis, unspecified
CPT/HCPCS: 96372; 99284

== ENCOUNTER 2020-03-05 10:40 | Emergency (ER) | payer OTHER ==
--- OUTSIDE RECORDS SUMMARY | 2020-03-05 10:42 | XMS REPORT | Continuity of Care Document ---
:1975 Author Organization [facility] t Address [address] [place] [place] [address] Care Team Providers Name Role Phone Bill CASTRO Attending Clinician Ziggy Pool Attending Clinician Radiology Attending Clinician Unavailable Doctor Unassigned, Name Attending Clinician Unavailable Problems This patient has no known problems. Allergies, Adverse Reactions, Alerts This patient has no known allergies or adverse reactions. Medications This patient has no known medications. Procedures This patient has no known procedures. Encounters Start End Encounter Admission Attending Care Care Encounter Source Date/Time Date/Time Type Type Clinicians Facility Department ID 2020-01-07 2020-01-07 [facility] [id number] 00:00:00 00:00:00 [facility] [id number] [place] [id number] [facility] [id number] nal [facility] Office [address] 2019-11-03 2019-11-03 [id number] 00:00:00 00:00:00 [facility] [id number] [place] [id number] [id number] nal 044 [address] 2019-11-02 2019-11-02 Hospital Radiology [facility] [id number] 15:30:00 23:59:00 Encounter [place] [id number] [place] [id number] [place] [id number] 2019-11-02 2019-11-02 Orders Doctor MAE [id number] 00:00:00 00:00:00 Only Unassigned, ERICA [id number] [place] [facility] [id number] 2019-10-28 2019-10-28 Office Roel, [facility] [id number] 15:11:42 15:59:11 Visit [facility] [id number] [place] [id number] [facility] [id number] nal 044 [address] Results This patient has no known results.
--- OUTSIDE RECORDS SUMMARY | 2020-03-05 10:42 | XMS REPORT | Summary of Care ---
:1975 Author Organization [facility] Address [address] [place] [id number] Care Team Providers Name Role Phone Ziggy Sevilla Primary Care Provider Reason for Referral (Routine) Status Reason Specialty Diagnoses / Referred By Referred To Procedures Contact Contact Pending Patient Rheumatology Diagnoses Arthralgia of multiple joints Susana, Review Requested Procedures CONSULT/REFERRAL RHEUMATOLOGY Surjit Vieira MD Provider [address] [place] [id number] Reason for Visit Reason Comments Referral/consult Encounter Details Date Type Department Care Team Description 01/07/2020 Telephone [facility] Roseline Ross FNP Referral/consult Medicine - [address] [place] [address] [address] [place] [address] [address] [place] [address] Allergies No Known Allergiesdocumented as of this encounter (statuses as of 01/07/2020) Medications Medication Sig Dispensed Refills Start Date End Date Status HYDROcodone-acetaminophe Take 1 tablet by 0 Active n (NORCO 5) 5-325 mg mouth 2 (two) tablet times daily. omeprazole (PRILOSEC) 40 Take 1 capsule 30 capsule 0 6 Active mg capsule by mouth daily. IBUPROFEN 400 mg tablet Take 1 tablet by 20 tablet 0 7 Active mouth every 6 (six) hours as needed for Pain (scale 1-3). tiZANidine 4 mg capsule Take 4 mg by 0 Active mouth 3 (three) times daily. phentermine 37.5 mg Take 37.5 mg by 0 Active tablet mouth daily with breakfast. zolpidem (AMBIEN) 10 mg Take 10 mg by 0 Active tablet mouth at bedtime as needed for Insomnia. topiramate 100 mg tablet topiramate 100 mg tablet 0 Active Take 1 tablet every day by oral route in the morning for 28 days. SUMAtriptan (IMITREX) 50 Imitrex 50 mg tablet 0 Active mg tablet Take 1 tablet every day by oral route as needed for 30 days . methylPREDNISolone Take by mouth 21 Each 0 10/26/2019 Active (MEDROL, HERMAN,) 4 mg SEE-INSTRUCTIONS tabletsIndications: . follow package Influenza-like illness directions documented as of this encounter (statuses as of 01/07/2020) Active Problems Problem Noted Date Right ankle pain 05/15/2016 Encounter for sterilization 01/17/2016 SLE (systemic lupus erythematosus) documented as of this encounter (statuses as of 01/07/2020) Immunizations Name Administration Dates Next Due Tdap 01/26/2019 documented as of this encounter Social History Tobacco Use Types Packs/Day Years Used Date Never Smoker Smokeless Tobacco: Never Used Alcohol Use Drinks/Week oz/Week Comments No 0 Standard drinks or equivalent 0.0 Sex Assigned at Date Recorded Not on file Job Start Date Occupation Industry Not on file Not on file Not on file Travel History Travel Start Travel End No recent travel history available. 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 Device Shelf Model / Identifier Expiration Serial / Date Lot Kit Falope Ring Band - [id number] RING Fallopian tube [employer] 09/26/2018 [id number] / Implanted: Qty: 1 on 01/17/2016 by Aung Hopson MD at [facility] P [id number] / [id number] documented as of this encounter Results Not on filedocumented in this encounter Visit Diagnoses Diagnosis Arthralgia of multiple joints - Primary Pain in joint, multiple sites documented in this encounter Insurance Payer Benefit Plan Subscriber ID Effective Phone Address Typ e / Group Dates HUMANA - HUMANA KAHLIL [id number] 2019-Pres [facility] care Adv MANAGED PLS HMO ent [facility] MEDICARE [facility] MEDICAID OF xxxxxxxxx 2011-Pres [phone] caid [place] ent [id number] [place] [address] documented as of this encounter
[2020-03-05 11:09] LABS: Urine Blood NEGATIVE (NEG); Urine Glucose NEGATIVE (NEG); Urine Protein NEGATIVE (NEG)
[2020-03-05] MEDS ORDERED: dexAMETHasone 10 MG/ML VIAL ONE (11:16)
[2020-03-05] MEDS ORDERED: KETOROLAC 30 MG/ML INJ ONE (11:17)
--- NOTE | 2020-03-05 12:35 | ER ---
Nurse's Notes [facility] Name: Joy Strauss Age: 44 yrs Sex: Female : 1975 Arrival Date: 03/05/2020 Time: 10:41 Bed 8 Private MD: Diagnosis: Low back pain;Radiculopathy, lumbar region Presentation: 03/05 10:44 Chief complaint: Patient states: I have herniated disc that is taken care of. But ca1 yesterday, the L flank side started hurting and radiating to the L leg and is throbbing. It hurts to sit, lay down. I have pain meds for my back and it's not working on it. I've had sciatic nerve problems before and this is not like that and I also have Lupus. Denies injury. Denies burning with urination. Reports strong smelling urine. Coronavirus screen: Proceed with normal triage. Patient denies a cough. Patient denies shortness of breath or difficulty breathing. Patient denies measured and/or subjective temperature greater than 100.4F prior to today's visit. Patient denies travel on a cruise ship or to a country the [facility] currently lists as an affected area. Patient denies contact with known and/or suspected case of COVID-19. Ebola Screen: Patient negative for fever greater than or equal to 101.5 degrees Fahrenheit, and additional compatible Ebola Virus Disease symptoms Patient denies exposure to infectious person. Patient denies travel to an Ebola-affected area in the 21 days before illness onset. No symptoms or risks identified at this time. Initial Sepsis Screen: Does the patient meet any 2 criteria? No. Patient's initial sepsis screen is negative. Does the patient have a suspected source of infection? No. Patient's initial sepsis screen is negative. Risk Assessment: Do you want to hurt yourself or someone else? Patient reports no desire to harm self or others. Onset of symptoms was March 05, 2020. 10:44 Method Of Arrival: Ambulatory ca1 10:44 Acuity: FÉLIX 3 ca1 Triage Assessment: 10:50 General: Appears in no apparent distress. uncomfortable, Behavior is calm, cooperative, bp appropriate for age. Pain: Complains of pain in left flank. EENT: No deficits noted. Neuro: No deficits noted. Cardiovascular: No deficits noted. Respiratory: No deficits noted. GI: No signs and/or symptoms were reported involving the gastrointestinal system. : Reports pain in left flank(s). Derm: No deficits noted. Musculoskeletal: Circulation, motion, and sensation intact. Range of motion: intact in all extremities. 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 - Social history:: Smoking status: Patient denies any tobacco usage or history of. Screenin:50 Abuse screen: Denies threats or abuse. Denies injuries from another. Nutritional bp screening: No deficits noted. Tuberculosis screening: No symptoms or risk factors identified. Fall Risk None identified. Assessment: 10:50 General: SEE TRIAGE NOTE. Neuro: Level of Consciousness is awake, alert, obeys bp commands, Oriented to person, place, time, situation, Appropriate for age. 12:25 Reassessment: PT AMBULATORY TO BATHROOM. STATES MINIMAL IMPROVEMENT IN S/S. bp 12:53 Reassessment: PT D/C HOME AMBULATORY, DX WITH RADICULOPATHY. bp Vital Signs: 10:44 BP 120 / 70; Pulse 81; Resp 15 S; Temp 97.5(TE); Pulse Ox 100% on R/A; Weight 72.57 kg ca1 (R); Height 5 ft. 1 in. (154.94 cm) (R); Pain 7/10; 11:00 BP 104 / 46; Pulse 68; Resp 16; Pulse Ox 100% ; bp 12:25 BP 99 / 59; Pulse 86; Resp 17; Pulse Ox 100% ; bp 10:44 Body Mass Index 30.23 (72.57 kg, 154.94 cm) ca1 ED Course: 10:41 Patient arrived in ED. ag5 10:48 Triage completed. ca1 10:49 Arm band placed on right wrist. ca1 10:50 Chuckie Sin PA is PHCP. jr8 10:50 Brooks Saleh MD is Attending Physician. jr8 10:50 Patient has correct armband on for positive identification. Bed in low position. Call bp light in reach. Side rails up X2. 10:53 Arik Mayo, RN is Primary Nurse. bp 11:10 Inserted saline lock: 20 gauge in right forearm, using aseptic technique. bp 12:52 No provider procedures requiring assistance completed. IV discontinued, intact, bp bleeding controlled, No redness/swelling at site. Pressure dressing applied. Administered Medications: 11:10 Drug: TORadol - Ketorolac 15 mg Route: IVP; Site: right forearm; bp 12:54 Follow up: Response: No adverse reaction; Marked relief of symptoms bp 11:10 Drug: Decadron - Dexamethasone 10 mg Route: IVP; Site: right forearm; bp 12:54 Follow up: Response: No adverse reaction; Marked relief of symptoms bp 11:40 Drug: Robaxin 1 grams Route: IVPB; Infused Over: 1 hrs; Site: right forearm; bp 12:54 Follow up: IV Status: Completed infusion; IV Intake: 100ml bp Intake: 12:54 IV: 100ml; Total: 100ml. bp Outcome: 12:35 Discharge ordered by . jr8 12:53 Discharged to home ambulatory. bp 12:53 Condition: stable 12:53 Discharge instructions given to patient, Instructed on discharge instructions, follow up and referral plans. medication usage, Demonstrated understanding of instructions, follow-up care, medications, Prescriptions given X 3. 12:55 Patient left the ED. bp Signatures: Chuckie Sin PA PA jr8 Arik Mayo, SREEDHAR RN bp Susan Nair RN RN [facility] [employer] [facility] ag5
--- NOTE | 2020-03-05 12:35 | EDPHYS ---
Physician Documentation [facility] Name: Joy Strauss Age: 44 yrs Sex: Female : 1975 Arrival Date: 03/05/2020 Time: 10:41 Bed 8 Private MD: ED Physician Brooks Saleh HPI: 03/05 12:30 This 44 yrs old Female presents to ER via Ambulatory with complaints of Back jr8 Pain. 12:30 The patient presents with pain that is acute. The symptoms are located in the low back. jr8 Onset: The symptoms/episode began/occurred acutely, yesterday. The pain radiates to the left leg. Associated signs and symptoms: The patient has no apparent associated signs or symptoms. The problem was sustained from unknown cause. Modifying factors: The patient symptoms are alleviated by nothing, the patient symptoms are aggravated by any movement. Severity of symptoms: At their worst the symptoms were moderate, in the emergency department the symptoms are unchanged. It is unknown whether or not the patient has had similar symptoms in the past. The patient has not recently seen a physician. History of disc disease and low back pain. Stated that she is having pain on left side with numbness of inner thigh that is not going away with home medications . 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 - Social history:: Smoking status: Patient denies any tobacco usage or history of. ROS: 12:30 Eyes: Negative for injury, pain, redness, and discharge, ENT: Negative for injury, jr8 pain, and discharge, Neck: Negative for injury, pain, and swelling, Cardiovascular: Negative for chest pain, palpitations, and edema, Respiratory: Negative for shortness of breath, cough, wheezing, and pleuritic chest pain, Abdomen/GI: Negative for abdominal pain, nausea, vomiting, diarrhea, and constipation, MS/Extremity: Negative for injury and deformity, Skin: Negative for injury, rash, and discoloration, Neuro: Negative for headache, weakness, numbness, tingling, and seizure. 12:30 Back: Positive for pain at rest, pain with movement, radiated pain, of the left low back. 12:30 : Negative for urinary symptoms, pelvic pain, flank pain, burning with urination, jr8 difficulty urinating, bladder incontinence. Exam: 12:30 Eyes: Pupils equal round and reactive to light, extra-ocular motions intact. Lids and jr8 lashes normal. Conjunctiva and sclera are non-icteric and not injected. Cornea within normal limits. Periorbital areas with no swelling, redness, or edema. ENT: Nares patent. No nasal discharge, no septal abnormalities noted. Tympanic membranes are normal and external auditory canals are clear. Oropharynx with no redness, swelling, or masses, exudates, or evidence of obstruction, uvula midline. Mucous membranes moist. Neck: Trachea midline, no thyromegaly or masses palpated, and no cervical lymphadenopathy. Supple, full range of motion without nuchal rigidity, or vertebral point tenderness. No Meningismus. Cardiovascular: Regular rate and rhythm with a normal S1 and S2. No gallops, murmurs, or rubs. Normal PMI, no JVD. No pulse deficits. Respiratory: Lungs have equal breath sounds bilaterally, clear to auscultation and percussion. No rales, rhonchi or wheezes noted. No increased work of breathing, no retractions or nasal flaring. Abdomen/GI: Soft, non-tender, with normal bowel sounds. No distension or tympany. No guarding or rebound. No evidence of tenderness throughout. Skin: Warm, dry with normal turgor. Normal color with no rashes, no lesions, and no evidence of cellulitis. MS/ Extremity: Pulses equal, no cyanosis. Neurovascular intact. Full, normal range of motion. Neuro: Awake and alert, GCS 15, oriented to person, place, time, and situation. Cranial nerves II-XII grossly intact. Motor strength 5/5 in all extremities. Sensory grossly intact. Cerebellar exam normal. Normal gait. 12:30 Back: pain, that is moderate, of the left low back, ROM is painful, with all movement, normal spinal alignment noted, CVA tenderness, is absent, vertebral tenderness, is not appreciated. Vital Signs: 10:44 BP 120 / 70; Pulse 81; Resp 15 S; Temp 97.5(TE); Pulse Ox 100% on R/A; Weight 72.57 kg ca1 (R); Height 5 ft. 1 in. (154.94 cm) (R); Pain 7/10; 11:00 BP 104 / 46; Pulse 68; Resp 16; Pulse Ox 100% ; bp 12:25 BP 99 / 59; Pulse 86; Resp 17; Pulse Ox 100% ; bp 10:44 Body Mass Index 30.23 (72.57 kg, 154.94 cm) ca1 MDM: 10:50 Patient medically screened. jr8 12:30 Differential diagnosis: Abdominal Aortic Aneurysm arthritis, Fracture Hydronephrosis jr8 Neoplasm Pyelonephritis ruptured disc, sprain, Ureterolithiasis vertebral fracture, cauda equina. Data reviewed: vital signs, nurses notes, and as a result, I will discharge patient. Data interpreted: Pulse oximetry: on room air is 100 %. Interpretation: normal. 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 Response to treatment: the patient's symptoms have mildly improved after treatment. 03/05 11:01 Order name: Urine Dipstick--Ancillary (enter results); Complete Time: 11: 03/05 11:01 Order name: Urine --Ancillary (enter results); Complete Time: 11: eb 03/05 11:02 Order name: IV; Complete Time: 11:18 jr8 Administered Medications: 11:10 Drug: TORadol - Ketorolac 15 mg Route: IVP; Site: right forearm; bp 12:54 Follow up: Response: No adverse reaction; Marked relief of symptoms bp 11:10 Drug: Decadron - Dexamethasone 10 mg Route: IVP; Site: right forearm; bp 12:54 Follow up: Response: No adverse reaction; Marked relief of symptoms bp 11:40 Drug: Robaxin 1 grams Route: IVPB; Infused Over: 1 hrs; Site: right forearm; bp 12:54 Follow up: IV Status: Completed infusion; IV Intake: 100ml bp Disposition: 15:24 Co-signature as Attending Physician, Brooks Saleh MD. rn Disposition: 03/05/20 12:35 Discharged to Home. Impression: Low back pain, Radiculopathy, lumbar region. - Condition is Stable. - Discharge Instructions: Back Pain, Adult, Chronic Back Pain, Musculoskeletal Pain, Heat Therapy. - Prescriptions for meloxicam 15 mg Oral tablet - take 1 tablet by ORAL route once daily As needed; 20 tablet. Robaxin 500 mg Oral Tablet - take 2 tablet by ORAL route every 6 hours As needed; 40 tablet. Medrol (Shay) 4 mg Oral Tablets, Dose Pack - take 1 tablet by ORAL route as directed - follow package instructions; 1 packet. - Medication Reconciliation Form, Thank You Letter, Antibiotic Education, Prescription Opioid Use form. - Follow up: Private Physician; When: 2 - 3 days; Reason: Recheck today's complaints, Continuance of care, Re-evaluation by your physician. - Problem is new. - Symptoms have improved. Signatures: Dispatcher [employer] EDMS Brooks Saleh MD MD rn Roszak, Josh, PA PA jr8 Arik Mayo RN RN Susan Black RN RN ca1 Corrections: (The following items were deleted from the chart) 12:55 12:35 03/05/2020 12:35 Discharged to Home. Impression: Low back pain; Radiculopathy, bp lumbar region. Condition is Stable. Forms are Medication Reconciliation Form, Thank You Letter, Antibiotic Education, Prescription Opioid Use. Follow up: Private Physician; When: 2 - 3 days; Reason: Recheck today's complaints, Continuance of care, Re-evaluation by your physician. Problem is new. Symptoms have improved. jr8
[2020-03-05 13:10] VITALS: TEMP 97.5; O2SAT 100
[2020-03-05 13:16] VITALS: BP 99/59
== END 2020-03-05 12:55 | disposition home or self-care (01) ==
LOC: ER 10:40
DX: M54.16 Radiculopathy, lumbar region (principal)
CPT/HCPCS: 96365; 81025; 81003; 96375; 99283; J1100; J2800

== ENCOUNTER 2020-11-01 14:30 | Emergency (ER) | payer OTHER ==
--- OUTSIDE RECORDS SUMMARY | 2020-11-01 14:33 | XMS REPORT | Continuity of Care Document ---
:1975 Author Organization [facility] t Address [address] [place] [place] [address] Care Team Providers Name Role Phone Raza Sierra NP Attending Clinician Colin MURRAY Attending Clinician Bill CASTRO Attending Clinician Ziggy Pool Attending [...] Date/Time Type Type Clinicians Facility Department ID 2020-10-22 2020-10-22 Emergency Dionne Sierra [facility] [id number] 13:44:00 16:22:00 Tori Shaw [id number] [place] [id number] [place] [id number] 2020-01-07 2020-01-07 Telephone JUSTICE Khan [id number] 00:00:00 00:00:00 [facility] [id number] [place] [id number] [facility] [phone] [place] [address] 2019-11-03 2019-11-03 Telephone JUSTICE Sevilla [id number] 00:00:00 00:00:00 Kaylah Murcia [id number] [place] [id number] [place] [phone] n[place] [address] 2019-11-02 2019-11-[address] [facility] [id number] 15:30:00 23:59:00 Encounter Brandi [id number] [place] [id number] [place] [id number] 2019-11-02 2019-11-02 Orders Doctor MAE [id number] 00:00:00 00:00:00 Only Unassigned, ERICA [id number] [place] [facility] [id number] 2019-10-28 2019-10-28 Office Roel, [facility] [id number] 15:11:42 15:59:11 Visit Kaylah Murcia [id number] [place] [id number] [facility] [phone] n[place] [address] Results This patient has no known results.
[2020-11-01] MEDS ORDERED: METHYLPREDNISOLONE 125 MG INJ ONE (15:27)
[2020-11-01 15:29] LABS: Absolute Lymphocytes (CBC) 0.6 K/uL (0.7-4.9); Basophils % 0.7 % (0-1.3); Lymphocytes % 13.9 % (15.3-44.8); MPV 9.8 fL (7.6-11.3); RBC Red Blood Cell Count 4.89 M/uL (3.86-4.86)
[2020-11-01 15:52] LABS: BUN Blood Urea Nitrogen 9 mg/dL (7-18); Bicarbonate 19 mmol/L (21-32); Ferritin 159.2 ng/mL (8-388); Glucose Level 114 mg/dL (74-106); Potassium 3.1 mmol/L (3.5-5.1); Sodium Level 141 mmol/L (136-145); Troponin I < 0.02 ng/mL (0.0-0.045)
--- NOTE | 2020-11-01 16:10 | RAD REPORT ---
EXAM DESCRIPTION: RAD - Chest Single View - 11/01/2020 3:40 pm CLINICAL HISTORY: COVID +;Cough COMPARISON: Portable July 2019 TECHNIQUE: AP portable chest image was obtained 11/01/2020 3:40 pm . FINDINGS: No focal mass or consolidation. No definitive COVID infiltrates seen. No failure or volume overload. Interstitial pattern matches comparison. Heart and vasculature are normal. No measurable p leural effusion and no pneumothorax. No acute bony abnormality seen. No acute aortic findings suspect ed. IMPRESSION: No acute cardiopulmonary process. Lung parenchymal pattern is not substantially different from comparison. CT imaging is more sensitive and could be utilized if confirming COVID-19 pneumonia would alter medic al management.
--- NOTE | 2020-11-01 16:29 | ER ---
Nurse's Notes [facility] Name: Joy Strauss Age: 45 yrs Sex: Female : 1975 Arrival Date: 11/01/2020 Time: 14:36 Bed 14 Private MD: Diagnosis: Coronavirus infection, unspecified Presentation: 11/01 14:56 Chief complaint: Patient states: Covid +, unable to see her PCP so she came in for ll1 eval. Burning to chest with breathing, CP with cough. N/V/D, all symptoms began . Coronavirus screen: Client denies travel out of the [place] in the last 14 days. chills, congestion, cough unrelated to allergies, diarrhea, difficulty breathing, fatigue, nausea, shortness of breath, loss of taste or smell, Client presents with at least one sign or symptom that may indicate coronavirus-19. Standard/surgical mask placed on the client. Ebola Screen: Patient denies travel to an Ebola-affected area in the 21 days before illness onset. Initial Sepsis Screen: Does the patient meet any 2 criteria? HR > 90 bpm. No. Patient's initial sepsis screen is negative. Does the patient have a suspected source of infection? Yes: Productive cough/pneumonia. Risk Assessment: Do you want to hurt yourself or someone else? Patient reports no desire to harm self or others. Onset of symptoms was October 27, 2020. 14:56 Method Of Arrival: Ambulatory 1 14:56 Acuity: FÉLIX 3 ll1 Historical: - Allergies: 14:56 NKA; ll1 - PMHx: 14:56 Back pain; Chronic pain; RA; scoliosis; Asthma; Lupus; herniated discs; ll1 - PSHx: 14:56 L 3-5 fusion; Cholecystectomy; Tubal ligation; ll1 - Immunization history:: Flu vaccine is up to date. - Social history:: Smoking status: Patient denies any tobacco usage or history of. - Family history:: not pertinent. - Hospitalizations: : No recent hospitalization is reported. Screenin:00 Abuse screen: Denies threats or abuse. Nutritional screening: No deficits noted. vg1 Tuberculosis screening: No symptoms or risk factors identified. Fall Risk Fall in past 12 months (25 points). No secondary diagnosis (0 pts). IV access (20 points). Ambulatory Aid- None/Bed Rest/Nurse Assist (0 pts). Gait- Normal/Bed Rest/Wheelchair (0 pts) Mental Status- Oriented to own ability (0 pts). Total Garvin Fall Scale indicates High Risk Score (45 or more points). Fall prevention measures have been instituted. Side Rails Up X 2 Placed Close to Nursing Station. Assessment: 14:58 General: Appears in no apparent distress. comfortable, Behavior is calm, cooperative. vg1 Pain: Complains of pain in Patient states body aches Pain does not radiate. Pain currently is 8 out of 10 on a pain scale. Pain began ana. Neuro: Level of Consciousness is awake, alert, obeys commands, Oriented to person, place, time, situation. Cardiovascular: Patient's skin is warm and dry. Respiratory: Airway is patent Respiratory effort is even, unlabored, Respiratory pattern is regular, symmetrical, Breath sounds with crackles in right posterior middle lobe. GI: Patient currently denies diarrhea, nausea, vomiting. : No signs and/or symptoms were reported regarding the genitourinary system. EENT: No signs and/or symptoms were reported regarding the EENT system. Derm: Skin is intact, is healthy with good turgor. Musculoskeletal: Circulation, motion, and sensation intact. 16:26 Reassessment: Patient appears in no apparent distress at this time. Patient and/or vg1 family updated on plan of care and expected duration. Pain level reassessed. Patient is alert, oriented x 3, equal unlabored respirations, skin warm/dry/pink. Patient stated Pain level is 6/10. Stated feeling a little nauseated. Provider notified Patient states feeling better. Vital Signs: 14:56 BP 144 / 96; Pulse 110; Resp 16; Temp 98.6; Pulse Ox 98% on R/A; Weight 72.57 kg; ll1 Height 5 ft. 2 in. (157.48 cm); 15:00 BP 136 / 81; Pulse 110; Resp 16; Pulse Ox 98% on R/A; vg1 16:00 BP 128 / 81; Pulse 86; Resp 16; Pulse Ox 98% on R/A; vg1 14:56 Body Mass Index 29.26 (72.57 kg, 157.48 cm) ll1 ED Course: 14:36 Patient arrived in ED. am2 14:46 Brooks Saleh MD is Attending Physician. rn 14:50 Nidia Olivo, RN is Primary Nurse. vg1 14:54 Arm band placed on Patient placed in an exam room, on a stretcher. ll1 14:58 Triage completed. ll1 15:01 Patient has correct armband on for positive identification. Bed in low position. Call vg1 light in reach. Side rails up X 1. 15:23 Inserted saline lock: 20 gauge in right forearm, using aseptic technique. Blood mt collected. 15:40 XRAY Chest (1 view) In Process Unspecified. EDMS 16:28 Sg Alvarenga MD is Referral Physician. rn 16:40 No provider procedures requiring assistance completed. IV discontinued, intact, vg1 bleeding controlled, No redness/swelling at site. Pressure dressing applied. Administered Medications: 15:33 Drug: SOLU-Medrol 125 mg Route: IVP; Site: right forearm; vg1 16:25 Follow up: Response: No adverse reaction vg1 Outcome: 16:28 Discharge ordered by MD. rn 16:40 Discharged to home ambulatory. vg1 16:40 Condition: stable 16:40 Discharge instructions given to patient, Instructed on discharge instructions, follow up and referral plans. medication usage, Demonstrated understanding of instructions, follow-up care, medications, Prescriptions given X 3. 16:40 Patient left the ED. vg1 Signatures: Dispatcher [employer] EDHI Brooks Saleh MD MD rn Moreno, Amanda am2 Thompson, Moriah mt Garcia, Victoria, RN RN vg1 Amina Pantoja RN RN ll1 Corrections: (The following items were deleted from the chart) 16:29 16:26 Reassessment: Patient appears in no apparent distress at this time. Patient vg1 and/or family updated on plan of care and expected duration. Pain level reassessed. Patient is alert, oriented x 3, equal unlabored respirations, skin warm/dry/pink. Patient stated Pain level is 6/10. Patient states feeling better. vg1
--- NOTE | 2020-11-01 16:29 | EDPHYS ---
Physician Documentation [facility] Name: Joy Strauss Age: 45 yrs Sex: Female : 1975 Arrival Date: 11/01/2020 Time: 14:36 Bed 14 Private MD: ED Physician Brooks Saleh HPI: 11/01 14:54 This 45 yrs old Female presents to ER via Unassigned with complaints of Chest rn Pressure, bodyaches, chills, Covid+. 14:54 The patient or guardian reports chest pain that is located primarily in the. rn 14:55 Onset: 3 day(s) ago. The pain does not radiate. Associated signs and symptoms: rn Pertinent positives: cough, Pertinent negatives: lower extremity pain, lower extremity swelling, syncope, vomiting. The chest pain is described as dull, sharp. Duration: The patient or guardian reports multiple episodes, that are intermittent. Modifying factors: The symptoms are alleviated by nothing. the symptoms are aggravated by cough, deep breath. Severity of pain: At its worst the pain was mild in the emergency department the pain is unchanged. The patient has not experienced similar symptoms in the past. The patient has not recently seen a physician. Reports symptoms began last Saturday, test came back Positive today, reports pain with deep breath and cough, + fatigue with nausea/vomiting/diarrhea. Has hx of lupus. No hemoptysis. No hx of dvt/PE.. Historical: - Allergies: 14:56 NKA; ll1 - PMHx: 14:56 Back pain; Chronic pain; RA; scoliosis; Asthma; Lupus; herniated discs; ll1 - PSHx: 14:56 L 3-5 fusion; Cholecystectomy; Tubal ligation; ll1 - Immunization history:: Flu vaccine is up to date. - Social history:: Smoking status: Patient denies any tobacco usage or history of. - Family history:: not pertinent. - Hospitalizations: : No recent hospitalization is reported. ROS: 14:55 Constitutional: Negative for fever, chills, and weight loss, Eyes: Negative for injury, rn pain, redness, and discharge, Cardiovascular: + chest pain Respiratory: + cough Abdomen/GI: Negative for abdominal pain, nausea, vomiting, diarrhea, and constipation, MS/Extremity: Negative for injury and deformity, Skin: Negative for injury, rash, and discoloration, Neuro: Negative for headache, weakness, numbness, tingling, and seizure. Exam: 14:57 Constitutional: This is a well developed, well nourished patient who is awake, alert, rn and in no acute distress. Ambulatory to room without distress Head/Face: Normocephalic, atraumatic. ENT: no stridor Cardiovascular: Tachycardic, regular. No pulse deficits. Respiratory: Speaking full sentences. No increased work of breathing, no retractions or nasal flaring. Skin: Warm, dry MS/ Extremity: Pulses equal, no cyanosis. Neurovascular intact. Full, normal range of motion. Equal circumference. Neuro: Awake and alert, GCS 15, oriented to person, place, time, and situation. Cranial nerves II-XII grossly intact. Motor strength 5/5 in all extremities. Sensory grossly intact. Cerebellar exam normal. Normal gait. Vital Signs: 14:56 BP 144 / 96; Pulse 110; Resp 16; Temp 98.6; Pulse Ox 98% on R/A; Weight 72.57 kg; ll1 Height 5 ft. 2 in. (157.48 cm); 15:00 BP 136 / 81; Pulse 110; Resp 16; Pulse Ox 98% on R/A; vg1 16:00 BP 128 / 81; Pulse 86; Resp 16; Pulse Ox 98% on R/A; vg1 14:56 Body Mass Index 29.26 (72.57 kg, 157.48 cm) ll1 MDM: 14:46 Patient medically screened. rn 16:27 Differential diagnosis: anxiety, pleurisy, pneumonia, pneumothorax, COVID. Data rn reviewed: vital signs, nurses notes, lab test result(s), radiologic studies, plain films, and as a result, I will discharge patient. Counseling: I had a detailed discussion with the patient and/or guardian regarding: the historical points, exam findings, and any diagnostic results supporting the discharge/admit diagnosis, lab results, radiology results, the need for outpatient follow up, to return to the emergency department if symptoms worsen or persist or if there are any questions or concerns that arise at home. Special discussion: I discussed with the patient/guardian in detail that at this point there is no indication for admission to the hospital. It is understood, however, that if the symptoms persist or worsen the patient needs to return immediately for re-evaluation. ED course: No acute abnormality on CXR, no oxygen requirement, will dc home with steroids and prn inhaler with return precautions.. 11/01 14:54 Order name: CBC with Diff; Complete Time: 15:36 rn 11/01 14:54 Order name: Basic Metabolic Panel; Complete Time: 16:07 rn 11/01 14:54 Order name: Ferritin; Complete Time: 16:07 rn 11/01 14:54 Order name: Procalcitonin; Complete Time: 16:26 rn 11/01 14:57 Order name: Troponin (emerg Dept Use Only) rn 11/01 14:54 Order name: XRAY Chest (1 view); Complete Time: 16:10 rn 11/01 14:54 Order name: IV Start; Complete Time: 15:23 rn 11/01 15:38 Order name: Troponin I; Complete Time: 16:07 EDMS Administered Medications: 15:33 Drug: SOLU-Medrol 125 mg Route: IVP; Site: right forearm; vg1 16:25 Follow up: Response: No adverse reaction vg1 Disposition: 11/01/20 16:28 Discharged to Home. Impression: Coronavirus infection, unspecified. - Condition is Stable. - Discharge Instructions: Viral Respiratory Infection, [id number], COVID-19. - Prescriptions for Prednisone 20 mg Oral Tablet - take 1 tablet by ORAL route as directed for 14 days Take 2 tablets by mouth daily for 7 days, followed by 1 tablet by mouth daily for 7 days, total of 14 days.; 21 tablet. Albuterol Sulfate 90 mcg/actuation - inhale 1-2 puff by INHALATION route every 4-6 hours; 1 Inhaler. Zofran ODT 4 mg Oral tablet,disintegrating - place 1 tablet by TRANSLINGUAL route every 8 hours As needed; 20 tablet. - Medication Reconciliation Form, Thank You Letter, Antibiotic Education, Prescription Opioid Use form. - Follow up: Sg Alvarenga MD; When: As needed; Reason: Recheck today's complaints, Re-evaluation by your physician. - Problem is new. - Symptoms have improved. Signatures: Dispatcher [employer] EDMS Brooks Saleh MD MD rn Garcia, Victoria, RN RN vg1 Amina Pantoja RN RN ll1 Corrections: (The following items were deleted from the chart) 14:57 14:55 Constitutional: Negative for fever, chills, and weight loss, Eyes: Negative for rn injury, pain, redness, and discharge, Cardiovascular: + chest pain Respiratory: + cough Abdomen/GI: Negative for abdominal pain, nausea, vomiting, diarrhea, and constipation, MS/Extremity: Negative for injury and deformity, Skin: Negative for injury, rash, and discoloration, Neuro: Negative for headache, weakness, numbness, tingling, and seizure, rn 15:38 14:57 Troponin (Emerg Dept Use Only) ordered. EDMS EDMS 16:40 16:28 11/01/2020 16:28 Discharged to Home. Impression: Coronavirus infection, vg1 unspecified. Condition is Stable. Forms are Medication Reconciliation Form, Thank You Letter, Antibiotic Education, Prescription Opioid Use. Follow up: Sg Alvarenga; When: As needed; Reason: Recheck today's complaints, Re-evaluation by your physician. Problem is new. Symptoms have improved. rn
[2020-11-02 13:36] VITALS: TEMP 98.6; O2SAT 98
[2020-11-02 13:39] VITALS: BP 128/81
== END 2020-11-01 16:40 | disposition home or self-care (01) ==
LOC: ER 14:30
DX: U07.1 COVID-19 (principal)
CPT/HCPCS: 85025; 80048; 36415; 84484; 82728; 84145; 71045; 96374; 99284; J2930

== ENCOUNTER 2020-11-04 16:39 | Emergency (ER) | payer OTHER ==
--- OUTSIDE RECORDS SUMMARY | 2020-11-04 16:43 | XMS REPORT | Continuity of Care Document ---
:1975 Author Organization [facility] t Address [address] [place] [place] [address] Care Team Providers Name Role Phone Raza [...] Department ID 2020-10-22 2020-10-22 Emergency Dionne Sierra [facility] 1.2.840 [id number] 13:44:00 16:22:00 Tori Shaw [id number] 0 [place] [id number] [place] [phone] [id number] 2020-01-07 2020-01-07 Telephone JUSTICE Khan 1..[id number] 00:00:00 00:00:00 [facility] [id number] [place] [id number] [facility] [phone] nal 044 [address] One 2019-11-03 2019-11-03 Telephone JUSTICE [place] [id number] 00:00:00 00:00:00 Kaylah Murcia [id number] [place] [id number] [place] [phone] nal 044 Office Building One 2019-11-02 2019-11-02 Hospital Radiology [facility] [id number] 15:30:00 23:59:00 Encounter Brandi [id number] [place] [id number] [place] [id number] [id number] 2019-11-02 2019-11-02 Orders Doctor MAE [id number] 00:00:00 00:00:00 Only Unassigned, ERICA [id number] [place] [facility] [phone] [id number] 2019-10-28 2019-10-28 Office Roel, [facility] [id number] 15:11:42 15:59:11 Visit Kaylah Murcia [id number] [place] [id number] [facility] [phone] nal 044 Office Building One Results This patient has no known results.
[2020-11-04] MEDS ORDERED: NA CHLORIDE 0.9% 1,000 ML ONE (17:45)
[2020-11-04] MEDS ORDERED: ACETAMINOPHEN 500 MG TAB ONE (17:45)
[2020-11-04 17:50] LABS: Absolute Lymphocytes (CBC) 1.3 K/uL (0.7-4.9); Basophils % 0.3 % (0-1.3); Hematocrit 46.7 % (36.0-45.0); Lymphocytes % 13.6 % (15.3-44.8); RBC Red Blood Cell Count 5.38 M/uL (3.86-4.86)
[2020-11-04 18:13] LABS: Potassium 3.3 mmol/L (3.5-5.1)
[2020-11-04 18:14] LABS: Bilirubin Total 0.3 mg/dL (0.2-1.0); Protein, Total 8.2 g/dL (6.4-8.2)
[2020-11-04] MEDS ORDERED: METHYLPREDNISOLONE 125 MG INJ ONE (18:44)
[2020-11-04] MEDS ORDERED: CEFTRIAXONE/SWI 1gm 1 GM/10 ML SYR ONE (18:44)
[2020-11-04] MEDS ORDERED: ONDANSETRON 4 MG/2 ML VIAL ONE (18:44)
--- NOTE | 2020-11-04 19:14 | RAD REPORT ---
EXAM DESCRIPTION: CT - Chest For Pe Angio - 11/04/2020 7:01 pm CLINICAL HISTORY: sob COMPARISON: November 01 2020 chest x-ray TECHNIQUE: Dynamically enhanced axial 3 mm thick images of the chest were obtained during administra tion of <100> mL Isovue 370 IV contrast. Coronal and oblique reconstruction images were generated and reviewed. Exam utilizes a protocol for optimal evaluation of pulmonary arterial tree. Maximum intensity projections 3D imaging was utilized All CT scans are performed using dose optimization technique as appropriate and may include automated exposure control or mA/KV adjustment according to patient size. FINDINGS: A pulmonary embolus is not seen. A thoracic aortic aneurysm is not noted. A pleural effusion is not seen. A pericardial effusion is not seen. Mild bilateral ground-glass opacities within the lungs IMPRESSION: Negative for a pulmonary embolism. Mild bilateral ground-glass opacities within the lungs may indicate Covid pneumonia present
--- NOTE | 2020-11-04 19:37 | ER ---
Nurse's Notes [facility] Name: Joy Strauss Age: 45 yrs Sex: Female : 1975 Arrival Date: 11/04/2020 Time: 16:42 Bed 6 Private MD: Diagnosis: Coronavirus infection, unspecified Presentation: 11/04 16:59 Chief complaint: Patient states: "I've been sick for a week now". pt reports being aa5 diagnosed with COVID-19 on Saturday. Pt c/o chest pain, SOB, cough, and weakness. Pt states "I took a dietary energy thing just to give me the energy to get here". Coronavirus screen: Client presents with at least one sign or symptom that may indicate coronavirus-19. Standard/surgical mask placed on the client. Provider contacted for isolation considerations. Ebola Screen: Patient negative for fever greater than or equal to 101.5 degrees Fahrenheit, and additional compatible Ebola Virus Disease symptoms. Initial Sepsis Screen: Does the patient meet any 2 criteria? RR > 20 per min. HR > 90 bpm. Does the patient have a suspected source of infection? Yes:. Risk Assessment: Do you want to hurt yourself or someone else? Patient reports no desire to harm self or others. Onset of symptoms was October 2020. 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 - Social history:: Smoking status: Patient denies any tobacco usage or history of. Screenin:23 Abuse screen: Denies threats or abuse. Denies injuries from another. Nutritional ph screening: No deficits noted. Tuberculosis screening: No symptoms or risk factors identified. Fall Risk None identified. Assessment: 17:36 General: Appears in no apparent distress. comfortable, well groomed, Behavior is ph cooperative, appropriate for age, anxious, Reports chills for >3 days, fever for > 3 days, fatigue for >3 days. Pain: Complains of pain in chest. Neuro: Level of Consciousness is awake, alert, obeys commands, Oriented to person, place, time, situation, Moves all extremities. Full function Reports dizziness, weakness. Cardiovascular: Capillary refill < 3 seconds Patient's skin is warm and dry. Respiratory: Reports shortness of breath at rest cough that is productive, pain with cough Airway is patent Respiratory effort is even, unlabored. GI: Reports diarrhea, nausea, vomiting, Patient currently denies abdominal pain. : No signs and/or symptoms were reported regarding the genitourinary system. EENT: Reports loss of taste and smell. Derm: Skin is intact, Skin is pink, warm \\T\\ dry. Musculoskeletal: Circulation, motion, and sensation intact. Range of motion: intact in all extremities. 18:47 Reassessment: Patient appears in no apparent distress at this time. Patient and/or ph family updated on plan of care and expected duration. Pain level reassessed. Patient is alert, oriented x 3, equal unlabored respirations, skin warm/dry/pink. 19:47 Reassessment: Patient appears in no apparent distress at this time. Patient is alert, rr5 oriented x 3, equal unlabored respirations, skin warm/dry/pink. discharge instruction given and explained without complaints made. Vital Signs: 16:59 BP 127 / 96; Pulse 123; Resp 24 S; Temp 98.1(O); Pulse Ox 99% on R/A; Weight 68.04 kg aa5 (R); Height 5 ft. 1 in. (154.94 cm) (R); 17:35 BP 131 / 89; Pulse 110; Resp 20; Pulse Ox 97% on R/A; ph 18:47 BP 125 / 87; Pulse 98; Resp 20; Pulse Ox 100% on R/A; ph 19:46 BP 121 / 87; Pulse 80; Resp 16; Temp 98.3; Pulse Ox 100% ; rr5 16:59 Body Mass Index 28.34 (68.04 kg, 154.94 cm) aa5 ED Course: 16:42 Patient arrived in ED. ds1 16:59 Arm band placed on. aa5 17:01 Triage completed. aa5 17:17 Colby Diaz PA [facility]CP. [facility] 17:17 Doc Amaral MD is Attending Physician. [facility] 17:22 Amy Long RN is Primary Nurse. ph 17:23 Patient has correct armband on for positive identification. Placed in gown. Bed in low ph position. Call light in reach. Side rails up X 1. rn quality on. Pulse ox on. NIBP on. Door closed. Noise minimized. Warm blanket given. 17:23 Inserted saline lock: 20 gauge forearm, using aseptic technique. Blood collected. 17:42 Blood Culture Adult (2) Sent. 5 17:42 Troponin (Emerg Dept Use Only) Sent. 5 17:42 Troponin (emerg Dept Use Only) Sent. 5 17:42 D-Dimer Sent. 5 17:42 Lactate Sent. 5 17:42 Procalcitonin Sent. 5 17:42 CMP Sent. 5 17:43 CBC with Diff Sent. 5 19:01 CT Chest For PE Angio In Process Unspecified. EDSD 19:14 Primary Nurse role handed off by Amy Long, RN mw2 19:48 No provider procedures requiring assistance completed. IV discontinued, intact, rr5 bleeding controlled, No redness/swelling at site. Pressure dressing applied. Administered Medications: 17:35 Drug: NS 0.9% 1000 ml Route: IV; Rate: 1 bolus; Site: right forearm; ph 19:49 Follow up: Response: No adverse reaction; IV Status: Completed infusion; IV Intake: rr5 1000ml 17:35 Drug: Tylenol 1000 mg Route: PO; ph 18:37 Follow up: Response: No adverse reaction ph 18:34 Drug: SOLU-Medrol 125 mg Route: IVP; Site: right antecubital; ph 18:37 Follow up: Response: No adverse reaction ph 18:35 Drug: Zofran (Ondansetron) 4 mg Route: IVP; Site: right antecubital; ph 19:48 Follow up: Response: No adverse reaction rr5 18:38 Drug: Rocephin (cefTRIAXone) 1 grams Route: IV; Rate: calculated rate; Site: right ph antecubital; 19:49 Follow up: Response: No adverse reaction; IV Status: Completed infusion; IV Intake: [id number] Intake: 19:49 IV: 10ml; Total: 10ml. rr5 19:49 IV: 1000ml; Total: 1010ml. rr5 Outcome: 19:37 Discharge ordered by MD. mcdonald 19:48 Discharged to home ambulatory. rr5 19:48 Condition: stable 19:48 Discharge instructions given to patient, Instructed on discharge instructions, follow up and referral plans. medication usage, Demonstrated understanding of instructions, follow-up care, medications, Prescriptions given X 2. 19:49 Patient left the ED. rr5 Signatures: Dispatcher [employer] EDMS Colby Diaz PA PA jmm Sanford, Demi ds1 Paty Walters RN RN aa5 Ban Salamanca RN RN Amy Long RN RN [place] [id number] Sarahi Schmidt [facility] Alin Gutierrez, SREEDHAR RN rr5 Corrections: (The following items were deleted from the chart) 17:02 16:59 Acuity: FÉLIX 3 aa5 aa5
--- NOTE | 2020-11-04 19:38 | EDPHYS ---
Physician Documentation [facility] Name: Joy Strauss Age: 45 yrs Sex: Female : 1975 Arrival Date: 11/04/2020 Time: 16:42 Bed 6 Private MD: ED Physician Doc Amaral HPI: 11/04 17:22 This 45 yrs old Female presents to ER via Ambulatory with complaints of Covid jmm + Shortness of Breath, Diarrhea. 17:22 The patient or guardian reports cough. Onset: The symptoms/episode began/occurred jmm gradually, 1 week(s) ago. Modifying factors: The symptoms are alleviated by nothing. the symptoms are aggravated by nothing. Associated signs and symptoms: Pertinent positives: chest pain, with cough, fever, sore throat, Pertinent negatives:. Patient diagnosed with covid on 11/01. Patient states she now has increased chest pain and shortness of breath since initial diagnosis. 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 - Social history:: Smoking status: Patient denies any tobacco usage or history of. ROS: 17:22 Cardiovascular: Positive for chest pain. jmm 17:22 Respiratory: Positive for shortness of breath. 17:22 All other systems are negative. Exam: 17:22 Constitutional: This is a well developed, well nourished patient who is awake, alert, jmm and in no acute distress. Head/Face: atraumatic. Eyes: EOMI, no conjunctival erythema appreciated ENT: Moist Mucus Membranes Neck: Trachea midline, Supple Chest/axilla: Normal chest wall appearance and motion. 17:22 Respiratory: Normal respirations, no respiratory distress appreciated Abdomen/GI: Non distended, soft Back: Normal ROM Skin: General appearance color normal MS/ Extremity: Moves all extremities, no obvious deformities appreciated, no edema noted to the lower extremities Neuro: Awake and alert, normal gait Psych: Behavior is normal, Mood is normal, Patient is cooperative and pleasant 17:22 Cardiovascular: Rate: tachycardic, Rhythm: regular. Vital Signs: 16:59 BP 127 / 96; Pulse 123; Resp 24 S; Temp 98.1(O); Pulse Ox 99% on R/A; Weight 68.04 kg aa5 (R); Height 5 ft. 1 in. (154.94 cm) (R); 17:35 BP 131 / 89; Pulse 110; Resp 20; Pulse Ox 97% on R/A; ph 18:47 BP 125 / 87; Pulse 98; Resp 20; Pulse Ox 100% on R/A; ph 19:46 BP 121 / 87; Pulse 80; Resp 16; Temp 98.3; Pulse Ox 100% ; rr5 16:59 Body Mass Index 28.34 (68.04 kg, 154.94 cm) aa5 MDM: 17:26 Patient medically screened. [facility] 19:35 Data reviewed: vital signs, nurses notes. Counseling: I had a detailed discussion with harry the patient and/or guardian regarding: the historical points, exam findings, and any diagnostic results supporting the discharge/admit diagnosis, lab results, radiology results, the need for outpatient follow up, to return to the emergency department if symptoms worsen or persist or if there are any questions or concerns that arise at home. ED course: Patient is alert and non toxic in appearance in the ED. No signs of resp distress. CTA is negative. Advised to follow up with pcp and otherwise given strict return precautions. Patient understood and agrees with the plan of care. . 11/04 17:22 Order name: CBC with Diff; Complete Time: 18:01 [facility] 11/04 17:22 Order name: CMP; Complete Time: 18:14 [facility] 11/04 17:22 Order name: Procalcitonin; Complete Time: 19:23 [facility] 11/04 17:22 Order name: Lactate; Complete Time: 18:37 [facility] 11/04 17:22 Order name: D-Dimer; Complete Time: 18:01 [facility] 11/04 17:27 Order name: Troponin (emerg Dept Use Only) [facility] 11/04 17:28 Order name: Troponin (Emerg Dept Use Only); Complete Time: 18:14 [facility] 11/04 17:28 Order name: Blood Culture Adult (2) [facility] 11/04 17:52 Order name: Glucose, Ancillary Testing; Complete Time: 18:01 [facility] 11/04 18:14 Order name: CT Chest For PE Angio; Complete Time: 19:16 [facility] 11/04 17:22 Order name: Saline Lock; Complete Time: 17:26 [facility] Administered Medications: 17:35 Drug: NS 0.9% 1000 ml Route: IV; Rate: 1 bolus; Site: right forearm; ph 19:49 Follow up: Response: No adverse reaction; IV Status: Completed infusion; IV Intake: rr5 1000ml 17:35 Drug: Tylenol 1000 mg Route: PO; ph 18:37 Follow up: Response: No adverse reaction ph 18:34 Drug: SOLU-Medrol 125 mg Route: IVP; Site: right antecubital; ph 18:37 Follow up: Response: No adverse reaction ph 18:35 Drug: Zofran (Ondansetron) 4 mg Route: IVP; Site: right antecubital; ph 19:48 Follow up: Response: No adverse reaction rr5 18:38 Drug: Rocephin (cefTRIAXone) 1 grams Route: IV; Rate: calculated rate; Site: right ph antecubital; 19:49 Follow up: Response: No adverse reaction; IV Status: Completed infusion; IV Intake: 96sqwg9 Disposition: 11/05 18:28 Co-signature as Attending Physician, Doc Amaral MD I agree with the assessment and tw4 plan of care. Disposition: 11/04/20 19:37 Discharged to Home. Impression: Coronavirus infection, unspecified. - Condition is Stable. - Discharge Instructions: COVID-19. - Prescriptions for ivermectin 3 mg Oral tablet - take 6 tablet by ORAL route as directed Take first dose followed by the second dose on day 3; 12 tablet. Prednisone 20 mg Oral Tablet - take 3 tablets by ORAL route once daily for 3 days; 9 tablet. - Medication Reconciliation Form, Thank You Letter, Antibiotic Education, Prescription Opioid Use form. - Follow up: Private Physician; When: 2 - 3 days; Reason: Recheck today's complaints, Continuance of care, Re-evaluation by your physician. Signatures: Dispatcher [employer] [facility] Colby Diaz PA PA [facility] Paty Walters, RN RN aa5 Amy Long RN RN Doc Amaral MD MD tw4 Gutierrez, Alin, RN RN rr5 Corrections: (The following items were deleted from the chart) 11/04 19:49 19:37 11/04/2020 19:37 Discharged to Home. Impression: Coronavirus infection, rr5 unspecified. Condition is Stable. Forms are Medication Reconciliation Form, Thank You Letter, Antibiotic Education, Prescription Opioid Use. Follow up: Private Physician; When: 2 - 3 days; Reason: Recheck today's complaints, Continuance of care, Re-evaluation by your physician. harry
[2020-11-04 20:10] VITALS: O2SAT 100
[2020-11-04 20:12] VITALS: BP 121/87; TEMP 98.3
== END 2020-11-04 19:49 | disposition home or self-care (01) ==
LOC: ER 16:39
DX: U07.1 COVID-19 (principal); J45.909 Unspecified asthma, uncomplicated; G89.29 Other chronic pain; M32.9 Systemic lupus erythematosus, unspecified; M41.9 Scoliosis, unspecified
CPT/HCPCS: 96365; 96361; 93005; 87040 ×2; 85025; 36415; 82947; 85379; 83605; 84484; 80053; 84145; 71275; 96375; 99284; Q9967; J0696; J7030; J2930; J2405

== ENCOUNTER 2020-12-06 12:40 | Emergency (ER) | payer OTHER ==
--- OUTSIDE RECORDS SUMMARY | 2020-12-06 12:42 | XMS REPORT | Continuity of Care Document ---
:1975 Author Organization [facility] t Address [address] [place] [place] [address] Care Team Providers Name Role Phone Singer MURRAY Attending Clinician Haroon Grace DO Attending Clinician Mariela STEINBERG G Attending Clinician Colin MURRAY Attending Clinician Bill [...] Date/Time Type Type Clinicians Facility Department ID 2020-12-06 2020-12-06 Emergency Singer [facility] [id number] 09:33:00 10:58:00 Boby Paz [id number] [place] [id number] [place] [phone] [id number] 2020-11-29 2020-11-29 Outpatient [facility] [id number] [facility] 00:00:00 00:00:00 Riya Stefania [facility] 2020-11-10 2020-11-10 Patient Sanjay, [facility] [id number] 00:00:00 00:00:00 Outreach Willy [facility] [id number] [facility] [id number] [place] [id number] [id number] 2020-10-22 2020-10-22 Emergency Dionne Sierra [facility] 1.2.840 .114 [id number] 13:44:00 16:22:00 Tori Shaw [id number] 0 [place] [id number] [place] [phone] [id number] 2020-01-07 2020-01-07 Telephone Bill, [facility] [id number] 00:00:00 00:00:00 [facility] [id number] [place] [id number] [place] [phone] nal 044 [address] One 2019-11-03 2019-11-03 [facility] [id number] 00:00:00 00:00:00 Kaylah [facility] [id number] [place] [id number] [place] [phone] nal 044 [address] 2019-11-02 2019-11-02 Hospital Radiology [facility] [id number] 15:30:00 23:59:00 Encounter [place] [id number] [place] [id number] [place] [id number] [id number] 2019-11-02 2019-11-02 Orders Doctor MAE [id number] 00:00:00 00:00:00 Only Unassigned, ERICA [id number] [facility] [id number] [id number] 2019-10-28 2019-10-28 Office [facility] [id number] 15:11:42 15:59:11 Visit Kaylah [facility] [id number] [place] [id number] [place] [phone] nal 044 [address] One Results This patient has no known results.
[2020-12-06] MEDS ORDERED: IBUPROFEN 200 MG TAB PO ONE (13:32)
[2020-12-06] MEDS ORDERED: IBUPROFEN 400 MG TAB ONE (13:32)
--- NOTE | 2020-12-06 14:16 | RAD REPORT ---
EXAM DESCRIPTION: US - Extremity Venous Uni Ltd - 12/06/2020 2:05 pm CLINICAL HISTORY: PAIN COMPARISON: None. TECHNIQUE: Real-time sonographic evaluation of the right lower extremity deep venous systems was per formed. FINDINGS: Normal compressibility, flow augmentation, phasic flow and spontaneous flow are identified in the right lower extremity common femoral, superficial femoral, popliteal and posterior tibial vei ns. No intraluminal filling defects seen. Patient reports a palpable mass and pain in the medial right popliteal region. A 3 x 1 x 1.5 centimet er area of slightly hyperechoic tissue is seen just deep to the skin surface possibly the correlate t o the palpable abnormality. This is a relatively subtle finding with no sharply demarcated margin. Th is could be a slightly more prominent fatty tissue or minimal hemorrhagic material. An aggressive mas s is unlikely but finding remains nonspecific. IMPRESSION: No DVT in the right lower extremity. Approximately 3 x 1 x 1.5 centimeter area of hyperechoic tissue is present not well-defined or demarc ated. Imaging characteristics are nonspecific. This can be monitored with follow-up imaging if the mass and pain symptoms persist. MRI imaging in this region could be performed as well if there is a continued pain and palpable mass clinical presentation.
--- NOTE | 2020-12-06 14:23 | ER ---
Nurse's Notes [facility] Name: Joy Strauss Age: 45 yrs Sex: Female : 1975 Arrival Date: 12/06/2020 Time: 12:43 Bed 14 Private MD: Sg Alvarenga K Diagnosis: Pain in right lower leg Presentation: 12/06 13:08 Chief complaint: Patient states: pain to right calf X 2 weeks, now feels a lump in side iw her calf, had COVId 3 weeks ago. Coronavirus screen: At this time, the client does not indicate any symptoms associated with coronavirus-19. Ebola Screen: Patient negative for fever greater than or equal to 101.5 degrees Fahrenheit, and additional compatible Ebola Virus Disease symptoms Patient denies exposure to infectious person. Patient denies travel to an Ebola-affected area in the 21 days before illness onset. No symptoms or risks identified at this time. Initial Sepsis Screen: Does the patient meet any 2 criteria? No. Patient's initial sepsis screen is negative. Does the patient have a suspected source of infection? No. Patient's initial sepsis screen is negative. Risk Assessment: Do you want to hurt yourself or someone else? Patient reports no desire to harm self or others. Onset of symptoms was November 24, 2020. 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 - Social history:: Smoking status: Patient denies any tobacco usage or history of. Screenin:18 Abuse screen: Denies threats or abuse. Denies injuries from another. Nutritional zb screening: No deficits noted. Tuberculosis screening: No symptoms or risk factors identified. Fall Risk None identified. Assessment: 13:00 General: Appears in no apparent distress. uncomfortable, Behavior is calm, cooperative, zb appropriate for age. Pain: Complains of pain in right calf Pain does not radiate. Pain currently is 5 out of 10 on a pain scale. Quality of pain is described as burning, tightness. Neuro: Level of Consciousness is awake, alert, obeys commands, Oriented to person, place, time, situation. Cardiovascular: Heart tones S1 S2 present Capillary refill < 3 seconds Patient's skin is warm and dry. Rhythm is regular. Respiratory: Reports shortness of breath at rest Airway is patent Respiratory effort is even, unlabored, Respiratory pattern is regular, symmetrical. GI: No signs and/or symptoms were reported involving the gastrointestinal system. : No signs and/or symptoms were reported regarding the genitourinary system. Derm: Skin is intact, is healthy with good turgor, Skin is dry, Skin is normal. Musculoskeletal: Range of motion: Swelling present in right calf. 13:11 Reassessment: ECP at bedside. zb 14:21 Reassessment: ECP at bedside explaining care. zb 14:33 Reassessment: gait steady and even. pt up at denisa. zb Vital Signs: 13:08 BP 132 / 90; Pulse 100; Resp 16; Temp 98.3; Pulse Ox 100% on R/A; Weight 72.57 kg; iw Height 5 ft. 1 in. (154.94 cm); Pain 6/10; 14:00 BP 142 / 85; Pulse 85; Resp 16; Pulse Ox 100% on R/A; zb 13:08 Body Mass Index 30.23 (72.57 kg, 154.94 cm) iw ED Course: 12:43 Patient arrived in ED. as 12:43 Sg Alvarenga MD is Private Physician. as 13:00 Kay Parker [facility]C [facility] kb 13:00 Surya Caldera MD is Attending Physician. kb 13:01 Genevieve Perez RN is Primary Nurse. zb 13:09 Triage completed. iw 13:19 Arm band placed on. zb 13:19 Patient has correct armband on for positive identification. Placed in gown. Bed in low zb position. Call light in reach. Side rails up X 1. Pulse ox on. NIBP on. Door closed. Noise minimized. Warm blanket given. Ice pack to injury. 14:05 US Extremity Venous Unilateral Ltd In Process Unspecified. EDMS 14:34 No provider procedures requiring assistance completed. Patient did not have IV access zb during this emergency room visit. Administered Medications: 13:15 Drug: Ibuprofen 600 mg Route: PO; zb 14:21 Follow up: Response: No adverse reaction; Marked relief of symptoms; Pain is decreased zb Outcome: 14:22 Discharge ordered by MD. smart 14:34 Discharged to home ambulatory. zb 14:34 Condition: stable 14:34 Discharge instructions given to patient, Instructed on discharge instructions, follow up and referral plans. Demonstrated understanding of instructions, follow-up care. 14:34 Patient left the ED. zb Signatures: Dispatcher [employer] EDMS Kay Parker, TAO CASTRO-Joana Marquez Irene, RN Genevieve Clark RN RN juanjo
--- NOTE | 2020-12-06 14:23 | EDPHYS ---
Physician Documentation [facility] Name: Joy Strauss Age: 45 yrs Sex: Female : 1975 Arrival Date: 12/06/2020 Time: 12:43 Bed 14 Private MD: Sg Alvarenga K ED Physician Surya Caldera HPI: 12/06 13:29 This 45 yrs old Female presents to ER via Ambulatory with complaints of Leg kb Swelling, Leg Pain. 13:29 The patient presents with pain, that is acute, swelling, tenderness. The complaints kb affect the right calf. Context: The problem was sustained at home, resulted from an unknown cause, the patient can fully bear weight, the patient is able to ambulate, Problem is a result from a previous injury: No. Onset: The symptoms/episode began/occurred 2 week(s) ago. Modifying factors: The symptoms are alleviated by nothing. the symptoms are aggravated by nothing. Associated signs and symptoms: Pertinent positives: calf tenderness, swelling. Treatment prior to arrival includes: no previous treatment. Severity of symptoms: At their worst the symptoms were moderate, in the emergency department the symptoms are unchanged. The patient has not experienced similar symptoms in the past. The patient has not recently seen a physician. SCRIPT ARTIST: 14:34 LMP 12/06/2020 zb Historical: - Allergies: 13:10 NKA; iw - Home Meds: 13:10 Hydrocodone-Acetaminophen Oral [Active]; Ambien Oral [Active]; Plaquenil Oral [Active]; iw - PMHx: 13:10 Asthma; Chronic pain; herniated discs; Degenerative disc disease; Lupus; RA; scoliosis; iw Back pain; - PSHx: 13:10 L 3-5 fusion; Cholecystectomy; Tubal ligation; iw - Immunization history:: Adult Immunizations up to date. - Social history:: Smoking status: Patient denies any tobacco usage or history of. ROS: 13:28 Constitutional: Negative for fever, chills, and weight loss, Cardiovascular: Negative kb for chest pain, palpitations, and edema, Respiratory: Negative for shortness of breath, cough, wheezing, and pleuritic chest pain, Abdomen/GI: Negative for abdominal pain, nausea, vomiting, diarrhea, and constipation, Skin: Negative for injury, rash, and discoloration, Neuro: Negative for headache, weakness, numbness, tingling, and seizure. 13:28 MS/extremity: Positive for pain, swelling, tenderness, of the right calf. Exam: 13:28 Constitutional: This is a well developed, well nourished patient who is awake, alert, kb and in no acute distress. Head/Face: Normocephalic, atraumatic. Respiratory: Respirations even and unlabored. No increased work of breathing, no retractions or nasal flaring. Skin: Warm, dry with normal turgor. Normal color. Neuro: Awake and alert, GCS 15, oriented to person, place, time, and situation. Moves all extremities. Normal gait. 13:28 Musculoskeletal/extremity: Extremities: grossly normal except: noted in the right calf: pain, swelling, tenderness, ROM: intact in all extremities, Circulation is intact in all extremities. Sensation intact. Weight bearing: able to fully bear weight. Vital Signs: 13:08 BP 132 / 90; Pulse 100; Resp 16; Temp 98.3; Pulse Ox 100% on R/A; Weight 72.57 kg; iw Height 5 ft. 1 in. (154.94 cm); Pain 6/10; 14:00 BP 142 / 85; Pulse 85; Resp 16; Pulse Ox 100% on R/A; zb 13:08 Body Mass Index 30.23 (72.57 kg, 154.94 cm) iw MDM: 13:00 Patient medically screened. kb 13:27 Data reviewed: vital signs, nurses notes. Data interpreted: Pulse oximetry: on room air kb is 100 %. Interpretation: normal. 14:19 Counseling: I had a detailed discussion with the patient and/or guardian regarding: the kb historical points, exam findings, and any diagnostic results supporting the discharge/admit diagnosis, radiology results, the need for outpatient follow up, a family practitioner, to return to the emergency department if symptoms worsen or persist or if there are any questions or concerns that arise at home. 12/06 13:10 Order name: US Extremity Venous Unilateral Ltd; Complete Time: 14:18 kb Administered Medications: 13:15 Drug: Ibuprofen 600 mg Route: PO; zb 14:21 Follow up: Response: No adverse reaction; Marked relief of symptoms; Pain is decreased zb Disposition: 16:07 Co-signature as Attending Physician, Surya Caldera MD I agree with the assessment and kdr plan of care. Disposition: 12/06/20 14:22 Discharged to Home. Impression: Pain in right lower leg. - Condition is Stable. - Discharge Instructions: Musculoskeletal Pain. - Medication Reconciliation Form, Thank You Letter, Antibiotic Education, Prescription Opioid Use form. - Follow up: Emergency Department; When: As needed; Reason: Worsening of condition. Follow up: Private Physician; When: 2 - 3 days; Reason: Recheck today's complaints, Continuance of care, Re-evaluation by your physician. Signatures: Dispatcher [employer] EDMS Kay Parker, PACKERHEAD MACHINE OPERATOR-C PACKERHEAD MACHINE OPERATOR-Ckb Surya Caldera MD MD kdr Yenny Morrissey, RN RN Genevieve Bailon RN RN zb Corrections: (The following items were deleted from the chart) 14:34 14:22 12/06/2020 14:22 Discharged to Home. Impression: Pain in right lower leg. zb Condition is Stable. Forms are Medication Reconciliation Form, Thank You Letter, Antibiotic Education, Prescription Opioid Use. Follow up: Emergency Department; When: As needed; Reason: Worsening of condition. Follow up: Private Physician; When: 2 - 3 days; Reason: Recheck today's complaints, Continuance of care, Re-evaluation by your physician. kb
== END 2020-12-06 14:34 | disposition home or self-care (01) ==
LOC: ER 12:40
DX: R22.41 Localized swelling, mass and lump, right lower limb (principal); M79.661 Pain in right lower leg; J45.909 Unspecified asthma, uncomplicated; G89.29 Other chronic pain; M32.9 Systemic lupus erythematosus, unspecified; M06.9 Rheumatoid arthritis, unspecified; M41.9 Scoliosis, unspecified
CPT/HCPCS: 93971; 99283

== ENCOUNTER 2021-10-03 19:34 | Emergency (ER) | payer OTHER ==
--- OUTSIDE RECORDS SUMMARY | 2021-10-03 19:37 | XMS REPORT | Continuity of Care Document ---
:[address] [facility] t Address [address] [place] [address] Care Team Providers Name Role Phone THANIA Primary Care Physician Unavailable Lissy Higgins Attending Clinician Unavailable Only, Db Test Attending Clinician Unavailable Ana CELL EFFICIENCY SUPERVISOR Attending Clinician ANA Attending Clinician Unavailable Noemí HIDALGO Attending Clinician Unavailable Sebastián RADFORD, S Attending Clinician Alfredo JUDD Attending Clinician Unavailable Alfredo ANDERSON Attending Clinician Unavailable Singer MURRAY Attending Clinician Haroon Grace DO Attending Clinician Mariela STEINBERG, G Attending Clinician Colin MURRAY Attending Clinician Lissy MARROQUIN Attending Clinician Unavailable Ziggy Pool Attending Clinician RADIOLOGY Attending Clinician Unavailable Radiology Attending Clinician Unavailable Doctor Unassigned, Name Attending Clinician Unavailable Ziggy WOLFF Attending Clinician Unavailable Attending Clinician Unavailable Noemí MAXWELL Attending Clinician Unavailable THANIA Admitting Clinician Unavailable Admitting Clinician Unavailable Payers Payer Name Policy Type Policy Number Effective Date Expiration Date S jama MEDICARE PART A [id number] 2006 \T\ B 00:00:00 [facility] [id number] 2016 MEDICAID 00:00:00 MEDICAID [facility] [id number] 2011 00:00:00 JODY GUILLORY PLS [id number] 2019 2020 HMO 00:00:00 00:00:00 Problems Condition Condition Condition Status Onset Resolution Last Treating Co mments Source Name Details Category Date Date Treatment Clinician Date Right Right Disease Active Univers ankle pain ankle pain 9-20 it y of 00:00: [place] 00 Medical Branch Encounter Encounter Disease Active Uni vers for for 5-24 ity of sterilizat sterilizat 00:00: P2P-Next ion ion 00 Medical Branch SLE SLE Disease Active Univers (systemic (systemic ity of lupus lupus [place] erythemato erythemato Me dical heather) heather) Branch Allergies, Adverse Reactions, Alerts Allergy Allergy Status Severity Reaction(s) Onset Inactive Treating Comm ents Source Name Type Date Date Clinician NO KNOWN Drug Active Univers ALLERGIE Class ity of S [facility] Social History Social Habit Start Date Stop Date Quantity Comments Source Exposure to Not sure [facility] SARS-CoV-2 (event) Medica l Branch Alcohol intake 2021-05-15 2021-05-15 0 /d [facility] 00:00:00 00:00:00 [facility] Tobacco use and 2016-01-17 2016-01-17 Never used [facility] exposure 00:00:00 00:00:00 [facility] Sex [birth year] [facility] 00:00:00 00:00:00 [facility] Smoking Status Start Date Stop Date Source Never smoker [facility] Medications Ordered Filled Start Stop Current Ordering Indication Dosage Frequency Signature Comments Components Source Medication Medication Date Date Medication? Clinician (SIG) Name Name hydroxychlo Yes Take by Un gita roquine 7-15 mouth. ity of sulfate 19:46: [place] (PLAQUENIL 21 Medical ORAL) Branch hydroxychlo Yes Take by Un gita roquine 7-15 mouth. ity of sulfate 19:46: [place] (PLAQUENIL 21 Medical ORAL) Branch proMETHazin Yes [id number] 25mg Insert 1 Univers e 25 mg 7-15 Suppositor ity of suppository 00:00: y into [facility] 00 rectum Medical every 4 Branch (four) hours as needed for Nausea and Vomiting (N/V). proMETHazin Yes [id number] 25mg Insert 1 Univers e 25 mg 7-15 [place] rect[place] every 4 Branch (four) hours as needed for Nausea and Vomiting (N/V). naproxen Yes [id number] 550mg Take 1 Un gita sodium 4-13 tablet by ity of (ANAPROX 00:00: mouth 2 [place] DS) 550 mg 00 (two) Medical tablet times Branch daily with meals. methylPREDN Yes [id number] Take by Univers ISolone 4-13 mouth ity of (MEDROL, 00:00: SEE-INSTRU Eddie as HERMAN,) 4 mg 00 CTIONS. Medica l tablets follow Branch package directions naproxen Yes [id number] 550mg Take 1 Un gita sodium 4-13 tablet by ity of (ANAPROX 00:00: mouth 2 [place] DS) 550 mg 00 (two) Medical tablet times Branch daily with meals. methylPREDN Yes [id number] Take by Univers ISolone 4-13 mouth ity of (MEDROL, 00:00: SEE-INSTRU Eddie as HERMAN,) 4 mg 00 CTIONS. Medica l tablets follow Branch package directions topiramate Yes topiramate U nivers 100 mg 3-04 100 mg ity of tablet 15:41: tablet 01 Take 1 Medical tablet Branch every day by oral route in the morning for 28 days. topiramate Yes topiramate U nivers 100 mg 3-04 100 mg ity of tablet 15:41: tablet 01 Take 1 Medical tablet Branch every day by oral route in the morning for 28 days. HYDROcodone 2018-08 Yes 1{tbl} Take 1 Un gita -acetaminop 0-23 tablet by ity of [place] (NORCO 13:34: [place] 5) 5-325 mg 10 (two) Medical tablet times Branch daily. tiZANidine 2018-08 Yes 4mg Take 4 mg Un gita 4 mg 0-23 by mouth 3 ity of capsule 13:34: (three) [place] 10 times Medical daily. Branch phentermine 2018-08 Yes 37.5mg Take 37.5 Univers 37.5 mg 0-23 mg by ity of tablet 13:34: mouth [place] 10 daily with Medical breakfast. Branch zolpidem 2018-08 Yes 10mg Take 10 mg Uni vers (AMBIEN) 10 0-23 by mouth ity of mg tablet 13:34: at bedtime [place] 10 as needed Medical for Branch Insomnia. SUMAtriptan 2018-08 Yes Imitrex 50 Univers (IMITREX) 0-23 mg tablet ity o f 50 mg 13:34: Take 1 [place] tablet 10 tablet Medical every day Branch by oral route as needed for 30 days. HYDROcodone 2018-08 Yes 1{tbl} Take 1 Un gita -acetaminop 0-23 tablet by ity of hen (NORCO 13:34: mouth 2 [place] 5) 5-325 mg 10 (two) Medical tablet times Branch daily. tiZANidine 2018-08 Yes 4mg Take 4 mg Un gita 4 mg 0-23 by mouth 3 ity of capsule 13:34: (three) [place] 10 times Medical daily. Branch phentermine 2018-08 Yes 37.5mg Take 37.5 Univers 37.5 mg 0-23 mg by ity of tablet 13:34: mouth [place] 10 daily with Medical breakfast. Branch zolpidem 2018-08 Yes 10mg Take 10 mg Uni vers (AMBIEN) 10 0-23 by mouth ity of mg tablet 13:34: at bedtime [place] 10 as needed Medical for Branch Insomnia. SUMAtriptan 2018-08 Yes Imitrex 50 Univers (IMITREX) 0-23 mg tablet ity o f 50 mg 13:34: Take 1 [place] tablet 10 tablet Medical every day Branch by oral route as needed for 30 days. IBUPROFEN 2017 Yes 400mg Take 1 Unive rs 400 mg 3-17 tablet by ity of tablet 00:00: mouth [place] 00 every 6 Medical (six) Branch hours as needed for Pain (scale 1-3). IBUPROFEN 2016-0 Yes 400mg Take 1 Unive rs 400 mg 3-17 tablet by ity of tablet 00:00: mouth [place] 00 every 6 Medical (six) Branch hours as needed for Pain (scale 1-3). omeprazole Yes 40mg Take 1 Unive rs (PRILOSEC) 5-17 capsule by ity of 40 mg 00:00: mouth [place] capsule 00 daily. Medical Branch omeprazole 2016-0 Yes 40mg Take 1 Unive rs (PRILOSEC) 5-17 capsule by ity of 40 mg 00:00: mouth [place] capsule 00 daily. Medical Branch Immunizations Ordered Filled Immunization Date Status Comments Sourc e Immunization Name Name TDAP 2019-01-26 Completed [facility] 00:00:00 [facility] TD 2019-01-26 Completed [facility] 00:00:00 [facility] Vital Signs Vital Name Observation Time Observation Value Comments Source Systolic blood 2021-05-15 20:07:00 140 mm[Hg] Univer sity [facility] Diastolic blood 2021-05-15 20:07:00 90 mm[Hg] Unive rsity [facility] Heart rate 2021-05-15 20:07:00 105 /min [facility] Body height 2021-05-15 20:07:00 154.9 cm [facility] Body weight 2021-05-15 20:07:00 74.844 kg [facility] BMI 2021-05-15 20:07:00 31.18 kg/m2 [facility] Procedures This patient has no known procedures. Encounters Start End Encounter Admission Attending Care Care Encounter Source Date/Time Date/Time Type Type Clinicians Facility Department ID 2021-09-20 Outpatient Higgins, [facility] [id number] 14:00:52 Prakash [id number] [facility] 2021-09-20 Outpatient Higgins, [facility] [id number] [facility] 13:53:20 Prakash [id number] [facility] 2021-09-20 Outpatient Higgins, [facility] [id number] 13:19:51 Prakash [id number] [facility] 2021-09-20 Outpatient Higgins, [facility] [id number] 13:14:31 Prakash [id number] [facility] 2021-09-20 Outpatient Higgins, [facility] [id number] 12:50:04 Prakash [id number] [facility] 2021-09-20 Outpatient Higgins, [facility] [id number] [facility] 12:48:36 [facility] [id number] Riya rojas Outpati ent Clinics 2021-06-26 Emergency [facility] [id number] Univers 17:19:59 ity of [facility] 2021-06-26 Emergency [facility] [id number] Univers 08:32:13 ity of [facility] 2021-06-26 Emergency [facility] [id number] Univers 02:13:21 ity of [facility] 2021-06-25 Emergency [facility] [id number] Univers 21:06:07 ity of [facility] 2021-06-25 Emergency [facility] [id number] Univers 12:29:01 ity of [facility] 2021-06-25 Emergency [facility] [id number] Univers 01:51:21 ity of [facility] 2021-09-06 2021-09-06 ambulatory [facility] [id number] [facility] 00[facility]00 [facility] 2021-08-14 2021-08-14 Laboratory Only, Ang Db Test [facility] [id number] Univers 15:45:00 16:00:00 [id number] [id number] Eddie as ROMEO?BLEA [phone] [address] MEDICAL OFFICE BUILDING 2021-08-14 2021-08-14 Outpatient R [facility] [id number] Univers 15:45:00 15:45:00 [id number] ity of [facility] 2021-08-14 2021-08-14 Outpatient R [facility] [id number] Univers 15:45:00 15:45:00 [facility] 2021-08-01 2021-08-01 ambulatory [facility] [id number] [facility] 2021-06-15 2021-06-15 [facility] [id number] [facility] 2021-06-12 2021-06-12 Outpatient Chet HIDALGO [facility] [id number] Univers 13:30:00 13:30:00 JENNA [id number] [facility] 2021-06-12 2021-06-12 Outpatient Chet HIDALGO [facility] [id number] Univers 13:30:00 13:30:00 [facility] 2021-06-06 2021-06-06 [facility] [id number] [facility] 2021-06-05 2021-06-05 Outpatient Chet HIDALGO [facility] [id number] Univers 13:30:00 13:30:00 JENNA [id number] [facility] 2021-06-05 2021-06-05 [facility] [id number] Univers 13:30:00 13:30:00 [facility] 2021-05-15 2021-05-15 [facility] [id number] Univers 15:01:19 15:16:19 Visit [facility] [id number] y [facility] [id number] Eddie as Romeo?Blea [id number] [address] Medical Office Building 2021-05-15 2021-05-15 Outpatient Chet HIDALGO [facility] [id number] Univers 15:00:00 15:00:00 JENNA [id number] [facility] 2021-05-15 2021-05-15 [facility] [id number] Univers 15:00:00 15:00:00 [facility] 2021-05-10 2021-05-10 [facility] [id number] Univers 13:00:00 13:00:00 JENNA [id number] [facility] 2021-05-10 2021-05-10 [facility] [id number] Univers 13:00:00 13:00:00 JENNA [facility] 2021-04-19 2021-04-19 Outpatient Chet DUTCH [facility] [id number] Univers 15:15:00 15:15:00 ANJU [id number] [facility] 2021-04-19 2021-04-19 Outpatient Chet JUDD [facility] [id number] Univers 15:15:00 15:15:00 ANJU [facility] 2021-02-21 2021-02-21 Outpatient [facility] [id number] [facility] 2021-02-21 2021-02-21 Outpatient [facility] [id number] [facility] 2021-02-08 2021-02-08 Outpatient [facility] [id number] [facility] 2021-02-06 2021-02-06 Outpatient [facility] [id number] [facility] 2021-01-20 2021-01-20 Outpatient Chet HIDALGO [facility] [id number] Univers 08:30:00 08:30:00 JENNA [id number] [facility] 2021-01-20 2021-01-20 Outpatient Chet HIDALGO [facility] [id number] Univers 08:30:00 08:30:00 JENNA [facility] 2021-01-02 2021-01-02 Outpatient [facility] [id number] [facility] 2020-12-21 2020-12-21 Outpatient Chet ANDERSON [facility] [id number] Univers 13:30:00 13:30:00 CARLOS [id number] [facility] 2020-12-21 2020-12-21 Outpatient Chet ANDERSON [facility] [id number] Univers 13:30:00 13:30:00 CARLOS [facility] 2020-12-12 2020-12-12 Outpatient [facility] [id number] [facility] 2020-12-12 2020-12-12 Outpatient [facility] [id number] [facility] 2020-12-06 2020-12-06 [facility] [id number] 09:33:00 10:58:00 Elena Paz [id number] [place] [id number] [place] [id number] 2020-11-29 2020-11-29 Outpatient [facility] [id number] [facility] 2020-11-10 2020-11-10 Patient Sanjay [facility] [id number] 00:00:00 00:00:00 Outreach [facility] [id number] [facility] [id number] [place] [id number] 2020-10-22 2020-10-22 Emergency AndreaDionne tracy Raza [facility] 1.2.840 .114 [id number] 13:44:00 16:22:00 Tori Shaw [id number] 0 [place] [id number] [place] [id number] 2020-03-15 2020-03-15 [id number] Univers 10:00:00 10:00:00 [id number] [facility] 2020-03-11 2020-03-[address] [facility] [id number] Univers 09:00:00 09:00:00 [id number] [facility] 2020-01-07 2020-01-07 Telephone Ana [facility] [id number] 00:00:00 00:00:00 [facility] [id number] [place] [id number] Professio [id number] [place] [address] Office [facility] 2019-11-03 2019-11-03 [facility] [id number] 00:00:00 00:00:00 [facility] [id number] [place] [id number] Professio [id number] [place] [address] Office Building [facility] 2019-11-02 2019-11-02 Outpatient R RADIOLOGY [facility] [id number] Univers 15:39:02 23:59:00 ity [facility] 2019-11-02 2019-11-02 Hospital Radiology [facility] [id number] 15:30:00 23:59:00 Encounter [place] [id number] [place] [id number] [place] [id number] 2019-11-02 2019-11-02 Outpatient R RADIOLOGY [facility] [id number] Univers 15:30:00 15:30:00 [facility] 2019-11-02 2019-11-02 Orders Doctor MAE [id number] 00:00:00 00:00:00 Only Unassigned, ERICA [id number] [place] [facility] [id number] 2019-10-28 2019-10-28 Office [facility] [id number] 15:11:42 15:59:11 Visit Kaylah [facility] [id number] [place] [id number] Professio [id number] [place] [address] Office [facility] 2019-10-28 2019-10-28 [facility] [id number] Univers 15:20:00 15:20:00 KAYLAH [facility] 2019-10-28 2019-10-28 [facility] [id number] Univers 15:20:00 15:20:00 KAYLAH [facility] 2019-10-26 2019-10-26 Emergency X SINGER [facility] ERT [id number] Univers 16:50:10 19:30:00 ELENA arboleda [facility] 2019-05-18 2019-05-18 Emergency X HANS [facility] ERT [id number] Univers 12:49:44 15:02:00 ANDREW arboleda [facility] Results This patient has no known results.
[2021-10-03] MEDS ORDERED: METHYLPREDNISOLONE 125 MG INJ ONE (20:47)
[2021-10-03] MEDS ORDERED: DIPHENHYDRAMINE 50 MG/ML VIAL ONE ×2 (20:48→21:12)
[2021-10-03] MEDS ORDERED: FAMOTIDINE 20 MG/2 ML VIAL IV ONE (21:13)
--- NOTE | 2021-10-03 21:55 | EDPHYS ---
Physician Documentation [facility] Name: Joy Strauss Age: 46 yrs Sex: Female : 1975 Arrival Date: 10/03/2021 Time: 19:36 Bed 23 Private MD: Angel Higginsh ED Physician Brooks Saleh HPI: 10/03 21:05 This 46 yrs old Female presents to ER via Ambulatory with complaints of Allergic jr8 Reaction. 21:05 Possible causes: The patient has no known obvious cause for the symptoms. At home the jr8 patient or guardian has treated the symptoms with Benadryl. Severity of symptoms: At their worst the symptoms were moderate in the emergency department the symptoms are unchanged. The patient has not experienced similar symptoms in the past. The patient has not recently seen a physician. Patient stated that she has been itching and has rash under her breast region chest and inguinal area. Patient stated that she does not recall getting into any new substances or starting any new medications or having any new foods. Stated that she feels like her skin is burning diffusely. Only thing she can think of is that she had Botox last week but that again symptoms started today.. 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 - Social history:: Smoking status: Patient denies any tobacco usage or history of. ROS: 21:05 Eyes: Negative for injury, pain, redness, and discharge, ENT: Negative for injury, jr8 pain, and discharge, Neck: Negative for injury, pain, and swelling, Cardiovascular: Negative for chest pain, palpitations, and edema, Respiratory: Negative for shortness of breath, cough, wheezing, and pleuritic chest pain, Abdomen/GI: Negative for abdominal pain, nausea, vomiting, diarrhea, and constipation, Back: Negative for injury and pain, MS/Extremity: Negative for injury and deformity, Neuro: Negative for headache, weakness, numbness, tingling, and seizure. 21:05 Skin: Positive for rash. Exam: 21:05 Constitutional: This is a well developed, well nourished patient who is awake, alert, jr8 and in no acute distress. Head/Face: Normocephalic, atraumatic. Eyes: Pupils equal round and reactive to light, extra-ocular motions intact. Lids and lashes normal. Conjunctiva and sclera are non-icteric and not injected. Cornea within normal limits. Periorbital areas with no swelling, redness, or edema. ENT: Nares patent. No nasal discharge, no septal abnormalities noted. Tympanic membranes are normal and external auditory canals are clear. Oropharynx with no redness, swelling, or masses, exudates, or evidence of obstruction, uvula midline. Mucous membranes moist. Neck: Trachea midline, no thyromegaly or masses palpated, and no cervical lymphadenopathy. Supple, full range of motion without nuchal rigidity, or vertebral point tenderness. No Meningismus. Cardiovascular: Regular rate and rhythm with a normal S1 and S2. No gallops, murmurs, or rubs. Normal PMI, no JVD. No pulse deficits. Respiratory: Lungs have equal breath sounds bilaterally, clear to auscultation and percussion. No rales, rhonchi or wheezes noted. No increased work of breathing, no retractions or nasal flaring. Abdomen/GI: Soft, non-tender, with normal bowel sounds. No distension or tympany. No guarding or rebound. No evidence of tenderness throughout. Back: No spinal tenderness. No costovertebral tenderness. Full range of motion. MS/ Extremity: Pulses equal, no cyanosis. Neurovascular intact. Full, normal range of motion. Neuro: Awake and alert, GCS 15, oriented to person, place, time, and situation. Cranial nerves II-XII grossly intact. Motor strength 5/5 in all extremities. Sensory grossly intact. 21:05 Skin: Mild erythema under the breast region in the anterior chest. No cellulitis noted.. Vital Signs: 20:15 BP 159 / 97; Pulse 117; Resp 18; Temp 97.6; Pulse Ox 100% ; Weight 79.38 kg; Height 5 jh5 ft. 1 in. (154.94 cm); 21:00 BP 135 / 85 LA Supine (/reg); Pulse 95 RA; Resp 18 S; Temp 98(O); Pulse Ox 100% ; Pain tk1 11/02; 21:00 BP 130 / 79 LA Supine (auto/reg); Pulse 76 MON; Resp 18; Temp 98.2(O); Pulse Ox 100% on tk1 R/A; Pain 3/10; 20:15 Body Mass Index 33.07 (79.38 kg, 154.94 cm) 5 MDM: 20:18 Patient medically screened. rn 21:53 Data reviewed: vital signs, nurses notes, and as a result, I will discharge patient. jr8 Data interpreted: Pulse oximetry: on room air is 100 %. Interpretation: normal. Counseling: I had a detailed discussion with the patient and/or guardian regarding: the historical points, exam findings, and any diagnostic results supporting the discharge/admit diagnosis, the need for outpatient follow up, a family practitioner, to return to the emergency department if symptoms worsen or persist or if there are any questions or concerns that arise at home. Response to treatment: the patient's symptoms have resolved after treatment. 10/03 20:18 Order name: IV; Complete Time: 20:44 jr8 Administered Medications: 20:49 Drug: SOLU-Medrol (methylPrednisoLONE) 125 mg Route: IVP; Site: right antecubital; ab2 21:12 Follow up: Response: Marked relief of symptoms tk1 20:49 Drug: Benadryl (diphenhydrAMINE) 25 mg Route: IVP; Site: right antecubital; ab2 21:12 Follow up: Response: Marked relief of symptoms tk1 21:09 Drug: Pepcid (famotidine) 20 mg Route: IVP; Rate: bolus; Infused Over: 2 mins; Site: tk1 right antecubital; 22:01 Follow up: Response: No adverse reaction; Marked relief of symptoms tk1 21:11 Drug: Benadryl (diphenhydrAMINE) 25 mg Route: IVP; Rate: bolus; Infused Over: 2 mins; tk1 Site: right antecubital; 22:01 Follow up: Response: No adverse reaction; Marked relief of symptoms tk1 Disposition: 10/04 00:54 Co-signature as Attending Physician, Brooks Saleh MD I agree with the assessment and rn plan of care. Attestation: The patient's history, exam findings, diagnostics, and a summary of any interventions or procedures was reviewed in detail with Chuckie WILLS. Disposition Summary: 10/03/21 21:54 Discharge Ordered Location: Home jr8 Problem: new jr8 Symptoms: have improved jr8 Condition: Stable jr8 Diagnosis - Allergy, unspecified jr8 Followup: jr8 - With: Prakash Higgins DO - When: 2 - 3 days - Reason: Recheck today's complaints, Continuance of care, Re-evaluation by your physician Discharge Instructions: - Discharge Summary Sheet jr8 - Anaphylactic Reaction, Adult jr8 Forms: - Medication Reconciliation Form jr8 - Thank You Letter jr8 - Antibiotic Education jr8 - Prescription Opioid Use jr8 Prescriptions: - Prednisone 20 mg Oral Tablet - take 2 tablets by ORAL route once daily for 5 days; 10 tablet; Refills: 0, jr8 Product Selection Permitted Signatures: Brooks Saleh MD MD rn Roszak, Josh, PA PA jr8 Mai Pandya RN RN jh5 Phyllis Rosales tk1 Shaka Pascual ab2
--- NOTE | 2021-10-03 21:55 | ER ---
Nurse's Notes [facility] Name: Joy Strauss Age: 46 yrs Sex: Female : 1975 Arrival Date: 10/03/2021 Time: 19:36 Bed 23 Private MD: Prakash Higgins Diagnosis: Allergy, unspecified Presentation: 10/03 20:15 Chief complaint: Patient states: since noon; skin feels on fire , swelling, and itching jh5 to under breasts and legs. Coronavirus screen: Vaccine status: Patient reports receiving the 2nd dose of the covid vaccine. Client denies travel out of the [place] in the last 14 days. At this time, the client does not indicate any symptoms associated with coronavirus-19. Ebola Screen: Patient negative for fever greater than or equal to 101.5 degrees Fahrenheit, and additional compatible Ebola Virus Disease symptoms Patient denies exposure to infectious person. Patient denies travel to an Ebola-affected area in the 21 days before illness onset. Onset: The symptoms/episode began/occurred acutely. Initial Sepsis Screen: Does the patient meet any 2 criteria? HR > 90 bpm. Does the patient have a suspected source of infection? No. Patient's initial sepsis screen is negative. Risk Assessment: Do you want to hurt yourself or someone else? Patient reports no desire to harm self or others. Onset of symptoms was October 03, 2021. 20:15 Method Of Arrival: Ambulatory [facility] 20:15 Acuity: FÉLIX 3 [facility] Triage Assessment: 20:17 General: Appears distressed, uncomfortable, well groomed, well developed, Behavior is [facility] calm, cooperative, appropriate for age. 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 - Social history:: Smoking status: Patient denies any tobacco usage or history of. Screenin:15 Abuse screen: Denies threats or abuse. Denies injuries from another. Nutritional tk1 screening: No deficits noted. Tuberculosis screening: No symptoms or risk factors identified. Fall Risk None identified. Assessment: 20:15 Reassessment: Patient with generalized edema. Denies SOB or feeling of throat swelling. tk1 General: Appears distressed, uncomfortable, well groomed, well developed, well nourished, Behavior is cooperative, anxious. Pain: Complains of pain in full body Pain does not radiate. Pain currently is 10 out of 10 on a pain scale. Quality of pain is described as burning, Pain began suddenly, Is continuous. Neuro: Level of Consciousness is awake, alert, obeys commands, Oriented to person, place, time, situation, Appropriate for age Car Rental Clerk are equal bilaterally Moves all extremities. Full function Gait is steady, Speech is normal, Facial symmetry appears normal, Pupils are PERRLA, Reports. Cardiovascular: No deficits noted. Denies chest pain, shortness of breath. Respiratory: Airway is patent Respiratory effort is even, unlabored, Respiratory pattern is regular, symmetrical, Breath sounds are clear bilaterally. GI: No deficits noted. No signs and/or symptoms were reported involving the gastrointestinal system. : No deficits noted. No signs and/or symptoms were reported regarding the genitourinary system. EENT: No deficits noted. No signs and/or symptoms were reported regarding the EENT system. Derm: No deficits noted. No signs and/or symptoms reported regarding the dermatologic system. Skin is intact, Skin is dry, Skin is pink, warm \T\ dry. Musculoskeletal: No deficits noted. No signs and/or symptoms reported regarding the musculoskeletal system. 21:48 Reassessment: Patient states feeling better. Patient states symptoms have improved. tk1 21:48 Reassessment: Patient states feeling better. Patient states symptoms have improved. tk1 Respiratory: Respiratory effort is even, labored, Respiratory pattern is regular, symmetrical, Breath sounds are clear bilaterally. 21:54 Reassessment: D/C per PA order. Discharge/Prescription instructions given to patient. tk1 Verbalized understanding. Vital Signs: 20:15 BP 159 / 97; Pulse 117; Resp 18; Temp 97.6; Pulse Ox 100% ; Weight 79.38 kg; Height 5 jh5 ft. 1 in. (154.94 cm); 21:00 BP 135 / 85 LA Supine (/reg); Pulse 95 RA; Resp 18 S; Temp 98(O); Pulse Ox 100% ; Pain tk1 11/02; 21:00 BP 130 / 79 LA Supine (auto/reg); Pulse 76 MON; Resp 18; Temp 98.2(O); Pulse Ox 100% on tk1 R/A; Pain 3/10; 20:15 Body Mass Index 33.07 (79.38 kg, 154.94 cm) [facility] ED Course: 19:36 Patient arrived in ED. es 19:37 Prakash Higgins DO is Private Physician. es 20:15 Patient has correct armband on for positive identification. Placed in gown. Bed in low tk1 position. Call light in reach. Side rails up X 1. Pulse ox on. NIBP on. 20:15 No provider procedures requiring assistance completed. Inserted saline lock: 20 gauge tk1 in right antecubital area, using aseptic technique. Blood collected. Missed attempt(s): 20 gauge in right forearm. 20:17 Triage completed. 5 20:17 Arm band placed on right wrist. 5 20:18 Brooks Saleh MD is Attending Physician. rn 20:19 Chuckie Sin PA is PHCP. jr8 20:50 Phyllis Rosales is Primary Nurse. tk1 21:53 Prakash Higgins DO is Referral Physician. jr8 21:54 IV discontinued, intact, bleeding controlled, No redness/swelling at site. Pressure tk1 dressing applied. Administered Medications: 20:49 Drug: SOLU-Medrol (methylPrednisoLONE) 125 mg Route: IVP; Site: right antecubital; ab2 21:12 Follow up: Response: Marked relief of symptoms tk1 20:49 Drug: Benadryl (diphenhydrAMINE) 25 mg Route: IVP; Site: right antecubital; ab2 21:12 Follow up: Response: Marked relief of symptoms tk1 21:09 Drug: Pepcid (famotidine) 20 mg Route: IVP; Rate: bolus; Infused Over: 2 mins; Site: tk1 right antecubital; 22:01 Follow up: Response: No adverse reaction; Marked relief of symptoms tk1 21:11 Drug: Benadryl (diphenhydrAMINE) 25 mg Route: IVP; Rate: bolus; Infused Over: 2 mins; tk1 Site: right antecubital; 22:01 Follow up: Response: No adverse reaction; Marked relief of symptoms tk1 Outcome: 21:54 Discharge ordered by . zachariah 22:00 Discharged to home ambulatory, with family. tk1 22:00 Condition: improved 22:00 Discharge instructions given to patient, Instructed on discharge instructions, follow up and referral plans. medication usage, Demonstrated understanding of instructions, follow-up care, medications, Prescriptions given X 1. 22:00 Patient left the ED. tk1 Signatures: Rebeka Hernandez Roman, MD MD rn Roszak, Josh, PA PA jr8 Mai Pandya RN RN 5 Phyllis Rosales tk1 Shaka Pascual2
[2021-10-04 06:28] VITALS: BP 130/79; TEMP 98.2; O2SAT 100
== END 2021-10-03 22:00 | disposition home or self-care (01) ==
LOC: ER 19:34
DX: R21 Rash and other nonspecific skin eruption (principal); Z91.09 Other allergy status, other than to drugs and biological substances
CPT/HCPCS: 96375; 96374; 99284; J1200 ×2; J2930

== ENCOUNTER 2022-05-03 12:18 | Emergency (ER) | payer OTHER ==
--- OUTSIDE RECORDS SUMMARY | 2022-05-03 12:22 | XMS REPORT | Continuity of Care Document ---
:[address] [facility] t Address [address] [place] [address] [address]. [address] [place] [address] Care Team Providers Name Role Phone ADELFO MONTEIRO Primary Care Physician Unavailable Prakash Higgins Attending Clinician Unavailable EBRAHIMSHINEIA Attending Clinician Unavailable Ebrahim BUSGIRL Rania Attending Clinician Green GLORIA Mary Kay Attending Clinician CARLOSGARY BRIAN Attending Clinician Unavailable Carlos BUSGIRL Cynise Attending Clinician Only, Ang Db Test Attending Clinician Unavailable Santa Bass Attending Clinician SANTA PEREZ Attending Clinician Unavailable JENNA HIDALGO Attending Clinician Unavailable Jenna Garcia Attending Clinician ANJU JUDD Attending Clinician Unavailable CARLOS ANDERSON Attending Clinician Unavailable Elena Bal DO Attending Clinician Willy Grace DO Attending Clinician Dionne Sierra NP Attending Clinician Tori Shaw DO Attending Clinician MEAH, NIZAM M Attending Clinician Unavailable Kaylah Pool Attending Clinician RADIOLOGY Attending Clinician Unavailable Radiology Attending Clinician Unavailable Doctor Unassigned, [place] Attending Clinician Unavailable KAYLAH WOLFF Attending Clinician Unavailable ELENA BAL Attending Clinician Unavailable ANDREW MAXWELL Attending Clinician Unavailable GARY GONZALEZ Admitting Clinician Unavailable ADELFO MONTEIRO Admitting Clinician Unavailable ELENA BAL Admitting Clinician Unavailable Payers Payer Name Policy Type Policy Number Effective Date Expiration Date Noemí yun MEDICARE PART A [id number] 2006 \\T\\ B 00:00:00 [facility] [id number] 2016 MEDICAID 00:00:00 MEDICAID [facility] [id number] 2011 00:00:00 JODY GUILLORY PLS [id number] 2019 2020 HMO 00:00:00 00:00:00 Problems Condition Condition Condition Status Onset Resolution Last Treating Co mments Source Name Details Category Date Date Treatment Clinician Date Right Right Disease Active Univers ankle pain ankle pain 9-20 it y of 00:00: [place] 00 Medical Branch Encounter Encounter Disease Active Uni vers for for 5-24 ity of [place]iliz[place] [facility] SLE SLE Disease Active Univers (systemic (systemic ity of lupus lupus [place] erythemato erythemato Me dical heather) heather) Branch Allergies, Adverse Reactions, Alerts Allergy Allergy Status Severity Reaction(s) Onset Inactive Treating Comm ents Source Name Type Date Date Clinician NO KNOWN Drug Active Univers ALLERGIE Class ity of S [facility] [place] [facility] Social History Social Habit Start Date Stop Date Quantity Comments Source Exposure to 2022-01-06 2022-01-16 Not sure [facility] SARS-CoV-2 (event) 00:00:00 15:34:00 Medica l Branch Alcohol intake 2022-01-16 2022-01-16 0 /d [facility] 00:00:00 00:00:00 [facility] Tobacco use and 2016-01-17 2016-01-17 Never used [facility] exposure 00:00:00 00:00:00 [facility] Branch Sex Ass[birth year] [facility] 00:00:00 00:00:00 Medical Branch Smoking Status Start Date Stop Date Source Never smoker [facility] Medical Branch Medications Ordered Filled Start Stop Current Ordering Indication Dosage Frequency Signature Comments Components Source Medication Medication Date Date Medication? Clinician (SIG) Name Name Titus 2021- No [id number] 25mg Take 1 Univers e 25 mg 5-24 05-30 tablet by ity of tablet 00:00: 04:59 mouth [place] 00 :00 every 6 Medical (six) Branch hours for 5 days. ondansetron 2021- No 4mg 4 mg, Slow Univers (ZOFRAN 01-05 IV Push, ity of (PF)) 17:00: 16:46 ONCE, 1 [place] injection 4 00 :00 dose, On Medi kiersten mg Fri Branch 01/05/22 at 1200, TOY ketorolac 2021- No 15mg 15 mg, Unive rs tromethamin 01-05 Slow IV ity of e (TORADOL) 17:00: 17:00 [place], [place] injection 00 :00 ONCE, 1 Medical 15 mg dose, On Branch 01/05/22 at 1200, TOY docusate 2021- No [id number] 100mg Take 1 Univers 100 mg 01-05 capsule by ity of capsule 00:00: 04:59 mouth [place] 00 :00 daily for Medical 30 days. Branch docusate 2021- No [id number] 100mg Take 1 Univers 100 mg 01-05- capsule by ity of capsule 00:00: 04:59 mouth [place] 00 :00 daily for Medical 30 days. Branch polyethylen 2021- No [id number] 17g Take 17 g Univers e glycol 01-05-19 by mouth 2 ity of 3350 00:00: 04:59 (two) [place] (MIRALAX) 00 :00 times Medical 17 daily for Branch gram/dose 5 days. powder sennosides 2021- No [id number] 8.6mg Take 1 Univers (SENOKOT) - 05-19 tablet by ity of 8.6 mg 00:00: 04:59 mouth [place] tablet 00 :00 daily for Medical 5 days. Branch hydroxychlo 2021-0 Yes Take by Uni vers roquine 7-15 mouth. ity of sulfate 19:46: [place] (PLAQUENIL 21 Medical ORAL) Branch hydroxychlo Yes Take by Uni vers roquine 7-15 mouth. ity of sulfate 19:46: [place] (PLAQUENIL 21 Medical ORAL) Branch hydroxychlo Yes Take by Uni vers roquine 7-15 mouth. ity of sulfate 19:46: [place] (PLAQUENIL 21 Medical ORAL) Branch hydroxychlo Yes Take by Uni vers roquine 7-15 mouth. ity of sulfate 19:46: [place] (PLAQUENIL 21 Medical ORAL) Branch proMETHazin Yes [id number] 25mg Insert 1 Univers e 25 mg 7-15 Suppositor ity of suppository 00:00: [place] 00 rectum Medical every 4 Branch (four) hours as needed for Nausea and Vomiting (N/V). proMETHazin Yes [id number] 25mg Insert 1 Univers e 25 mg 7-15 Suppositor ity of suppository 00:00: [place] 00 rectum Medical every 4 Branch (four) hours as needed for Nausea and Vomiting (N/V). proMETHazin Yes [id number] 25mg Insert 1 Univers e 25 mg 7-15 Suppositor ity of suppository 00:00: y [place] 00 rectum Medical every 4 Branch (four) hours as needed for Nausea and Vomiting (N/V). proMETHazin Yes [id number] 25mg Insert 1 Univers e 25 mg 7-15 Suppositor ity of suppository 00:00: [place] 00 rectum Medical every 4 Branch (four) hours as needed for Nausea and Vomiting (N/V). naproxen Yes [id number] 550mg Take 1 Un gita sodium 4-13 tablet by ity of (ANAPROX 00:00: mouth 2 [place] DS) 550 mg 00 (two) Medical tablet times Branch daily with meals. methylPREDN Yes [id number] Take by Univers ISolone 4-13 mouth ity of (MEDROL, 00:00: SEE-INSTRU Eddie as HERMAN,) 4 mg 00 CTIONS. Medica l tablets follow Branch package directions naproxen 2021-0 Yes [id number] 550mg Take 1 Un gita sodium 4-13 tablet by ity of (ANAPROX 00:00: mouth 2 [place] DS) 550 mg 00 (two) Medical tablet times Branch daily with meals. methylPREDN 2020-0 Yes [id number] Take by Univers ISolone 4-13 mouth ity of (MEDROL, 00:00: SEE-INSTRU Eddie as HERMAN,) 4 mg 00 CTIONS. Medica l tablets follow Branch package directions naproxen 2020-0 Yes [id number] 550mg Take 1 Un gita sodium 4-13 tablet by ity of (ANAPROX 00:00: mouth 2 [place] DS) 550 mg 00 (two) Medical tablet times Branch daily with meals. methylPREDN 2020-0 Yes [id number] Take by Univers ISolone 4-13 mouth ity of (MEDROL, 00:00: SEE-INSTRU Eddie as HERMAN,) 4 mg 00 CTIONS. Medica l tablets follow Branch package directions naproxen 2020-0 Yes [id number] 550mg Take 1 Un gita sodium 4-13 tablet by ity of (ANAPROX 00:00: mouth 2 [place] DS) 550 mg 00 (two) Medical tablet times Branch daily with meals. methylPREDN 2020-0 Yes [id number] Take by Univers ISolone 4-13 mouth ity of (MEDROL, 00:00: SEE-INSTRU Eddie as HERMAN,) 4 mg 00 CTIONS. Medica l tablets follow Branch package directions topiramate 2020-0 Yes topiramate U nivers 100 mg 3-04 100 mg ity of tablet 15:41: tablet Take 1 Medical tablet Branch every day by oral route in the morning for 28 days. topiramate 2020-0 Yes topiramate U nivers 100 mg 3-04 100 mg ity of tablet 15:41: tablet 01 Take 1 Medical tablet Branch every day by oral route in the morning for 28 days. topiramate 2020-0 Yes topiramate U nivers 100 mg 3-04 100 mg ity of tablet 15:41: tablet 01 Take 1 Medical tablet Branch every day by oral route in the morning for 28 days. topiramate 2020-0 Yes topiramate U nivers 100 mg 3-04 100 mg ity of tablet 15:41: tablet Take 1 Medical tablet Branch every day [...] route as needed for 30 days. HYDROcodone 2019-1 Yes 1{tbl} Take 1 Un gita -acetaminop [...] route as needed for 30 days. IBUPROFEN Yes 400mg Take 1 Unive rs 400 mg 3-17 tablet by ity of tablet 00:00: mouth [place] 00 every 6 Medical (six) Branch hours as needed for Pain (scale 1-3). IBUPROFEN [id number] Yes 400mg Take 1 Unive rs 400 mg 3-17 tablet by ity of tablet 00:00: mouth [place] 00 every 6 Medical (six) Branch hours as needed for Pain (scale 1-3). IBUPROFEN [id number] Yes 400mg Take 1 Unive rs 400 mg 3-17 tablet by ity of tablet 00:00: mouth [place] 00 every 6 Medical (six) Branch hours as needed for Pain (scale 1-3). IBUPROFEN 0 Yes 400mg Take 1 Unive rs 400 mg 3-17 tablet by ity of tablet 00:00: mouth [place] 00 every 6 Medical (six) Branch hours as needed for Pain (scale 1-3). omeprazole Yes 40mg Take 1 Unive rs (PRILOSEC) 5-17 capsule by ity of 40 mg 00:00: mouth [place] capsule 00 daily. Medical Branch omeprazole 0 Yes 40mg Take 1 Unive rs (PRILOSEC) 5-17 capsule by ity of 40 mg 00:00: mouth [place] capsule 00 daily. Medical Branch omeprazole 0 Yes 40mg Take 1 Unive rs (PRILOSEC) 5-17 capsule by ity of 40 mg 00:00: mouth [place] capsule 00 daily. Medical Branch omeprazole 0 Yes 40mg Take 1 Unive rs (PRILOSEC) 5-17 capsule by ity of 40 mg 00:00: mouth [place] capsule 00 daily. Medical Branch Immunizations Ordered Filled Immunization Date Status Comments [facility] e Immunization Name Name [facility] 2019-01-26 Completed [facility] 00:00:00 [facility] [place] [facility] TD 2019-01-26 Completed [facility] 00:00:00 [facility] [place] [facility] TDAP 2019-01-26 Completed [facility] 00:00:00 [facility] [place] [facility] TDAP 2019-01-26 Completed [facility] 00:00:00 [facility] [place] [facility] Vital Signs Vital Name Observation Time Observation Value Comments Source Systolic blood 2022-01-16 20:40:00 135 mm[Hg] Univer sity of pressure [facility] [place] [facility] Diastolic blood 2022-01-16 20:40:00 87 mm[Hg] Unive rsity of pressure [facility] [place] [facility] Heart rate 2022-01-16 20:40:00 98 /min [facility] [place] [facility] Body temperature 2022-01-16 20:40:00 36.5 Meredith Univ ersity [facility] [place] [facility] Respiratory rate 2022-01-16 20:40:00 16 /min Univ ers[facility] [place] [facility] Body height 2022-01-16 20:40:00 152.4 cm [facility] [place] [facility] Body weight 2022-01-16 20:40:00 83.779 kg [facility] [place] [facility] BMI 2022-01-16 20:40:00 36.07 kg/m2 [facility] [place] [facility] Oxygen saturation in 2022-01-16 20:40:00 99 /min University of Arterial blood by [place] [employer] kiersten Pulse oximetry Branch Systolic blood 2022-01-05 15:50:00 158 mm[Hg] Univer sity of pressure [place] [facility] Diastolic blood 2022-01-05 15:50:00 89 mm[Hg] Unive rsity of pressure [place] [facility] Heart rate 2022-01-05 15:50:00 101 /min [facility]i [facility] [place] [facility] Body temperature 2022-01-05 15:50:00 37.06 Meredith Univ ers[facility] [place] [facility] Respiratory rate 2022-01-05 15:50:00 18 /min Univ ers[facility] [place] [facility] Body height 2022-01-05 15:50:00 154.9 cm [facility] [place] [facility] Body weight 2022-01-05 15:50:00 79.379 kg [facility] [place] [facility] BMI 2022-01-05 15:50:00 33.07 kg/m2 [facility] [place] [facility] Oxygen saturation in 2022-01-05 15:50:00 100 /min University of Arterial blood by [place] [employer] kiersten Pulse oximetry Branch Systolic blood 2021-05-15 20:07:00 140 mm[Hg] Univer sity of pressure [place] [facility] Diastolic blood 2021-05-15 20:07:00 90 mm[Hg] Unive rsity of pressure [place] [facility] Heart rate 2021-05-15 20:07:00 105 /min [facility] [place] [facility] Body height 2021-05-15 20:07:00 154.9 cm [facility] [place] [facility] Body weight 2021-05-15 20:07:00 74.844 kg [facility] BMI 2021-05-15 20:07:00 31.18 kg/m2 [facility] Procedures Procedure Date / Time Performed Performing Clinician Otis quick CT ABDOMEN PELVIS WO 2022-01-05 17:20:35 Gary Gonzalez [facility] CONTRAST [facility] XR KUB 2022-01-05 16:21:08 [facility] POCT TEST 2022-01-05 16:08:00 Gary Gonzalez [facility] LIPASE 2022-01-05 16:06:00 Carlos [facility] HEPATIC FUNCTION PANEL 2022-01-05 16:06:00 Gary Gonzalez [facility] ([id number]) [facility] (ALB,T.PRO,BILI T,BU/BC,ALT,AST,ALK PHOS) BASIC METABOLIC PANEL 2022-01-05 16:06:00 Gary Gonzalez [facility] (NA, K, CL, CO2, Medical Branch GLUCOSE, BUN, CREATININE, CA) CBC WITH DIFF 2022-01-05 16:06:00 Carlos [facility] URINALYSIS 2022-01-05 16:06:00 [facility] CONSENT/REFUSAL FOR 2022-01-05 15:43:39 Doctor Unassigned, No Un [facility] DIAGNOSIS AND Name Medical Branch TREATMENT Encounters Start End Encounter Admission Attending Care Care Encounter Source Date/Time Date/Time Type Type Clinicians Facility Department ID 2021-09-20 Outpatient Higgins, [facility] [id number] Common 14:00:52 Prakash [id number] [facility] 2021-09-20 Outpatient Higgins, [facility] [id number] Common 13:53:20 Prakash [id number] [facility] 2021-09-20 Outpatient Higgins, [facility] [id number] Common 13:19:51 Prakash [id number] [facility] 2021-09-20 [facility] [id number] Common 13:14:31 Prakash [id number] [facility] 2021-09-20 Outpatient Higgins, STLMLC STLMLC [id number] Common 12:50:04 Prakash [id number] [facility] 2021-09-20 Outpatient Higgins, STLMLC STLMLC [id number] Common 12:48:36 Prakash [id number] [facility] 2021-06-26 Emergency [facility] [id number] Univers 17:19:59 ity of [facility] [place] [facility] 2021-06-26 Emergency [facility] [id number] Univers 08:32:13 ity of [facility] [place] [facility] 2021-06-26 Emergency [facility] [id number] Univers 02:13:21 ity of [facility] [place] [facility] 2021-06-25 Emergency [facility] [id number] Univers 21:06:07 ity of [facility] [place] [facility] 2021-06-25 Emergency [facility] [id number] Univers 12:29:01 ity of [facility] [place] [facility] 2021-06-25 Emergency [facility] [id number] Univers 01:51:21 ity [facility] 2022-03-14 2022-03-14 ambulatory STLMLC STLMLC [id number] Common 00:00:00 00:00:00 [facility] 2022-03-14 2022-03-14 ambulatory STLMLC STLMLC [id number] Common 00:00:00 00:00:00 [facility] 2022-03-14 2022-03-14 ambulatory STLMLC STLMLC [id number] Common 00:00:00 00:00:00 [facility] 2022-01-16 2022-01-16 Outpatient R VEL [facility] [id number] Univers 16:00:00 16:03:05 [facility]22-[facility]-16 2022-01-16 Urgent Yannick Vásquez [facility] [id number] Univers 16:00:00 16:03:05 [facility] [id number] ity [facility] [id number] Eddie as ROMEO?BLEA [id number] Ok dicelisa [address] MEDICAL OFFICE BUILDING 2022-01-16 2022-01-16 Outpatient R [facility] [id number] Univers 16:00:00 16:00:00 [id number] [facility] 2022-01-05 2022-01-05 Emergency X CARLOS, [facility] ERT [id number] Univers 10:54:00 13:07:00 [facility] 2022-01-05 2022-01-05 Emergency [facility] [id number] Univers 10:54:00 13:07:00 Gary DECATUR [id number] i ty jane [facility] [id number] [place] [id number] [address] 2021-12-28 2021-12-28 Outpatient R [facility] [id number] Univers 13:20:00 13:20:00 [id number] [facility] 2021-12-28 2021-12-28 Outpatient [facility] [id number] Univers 13:20:00 13:20:00 YANNICK [facility] 2021-12-13 2021-12-13 ambulatory STLMLC STLMLC [id number] Common 00:00:00 00:00:00 [facility] 2021-09-06 2021-09-06 ambulatory STLMLC STLMLC [id number] Common 00:00:00 00:00:00 [facility] 2021-08-14 2021-08-14 Laboratory Only, Ang Db Test [facility] [id number] Univers 15:45:00 16:00:00 Only [place] Peerz [facility] [id number] ity jane [place] [id number] Eddie as ROMEO?BLEA [id number] Me dic[address] MEDICAL OFFICE [facility] 2021-08-14 2021-08-14 Outpatient [facility] [id number] Univers 15:45:00 15:54:14 SANTA arboleda o f [facility] [place] [facility] 2021-08-14 2021-08-14 Outpatient R [facility] [id number] Univers 15:45:00 15:45:00 [id number] [facility] 2021-08-01 2021-08-01 ambulatory STLMLC STLMLC [id number] Common 00:00:00 00:00:00 [facility] 2021-06-15 2021-06-15 Outpatient STLMLC STLMLC [id number] Common 00:00:00 00:00:00 [facility] 2021-06-12 2021-06-12 Outpatient Chet [facility] [id number] Univers 13:30:00 13:30:00 JENNA [id number] [facility] 2021-06-12 2021-06-12 Outpatient Chet [facility] [id number] Univers 13:30:00 13:30:00 JENNA [facility] 2021-06-06 2021-06-06 Outpatient STLMLC STLMLC [id number] Common 00:00:00 00:00:00 [facility] 2021-06-05 2021-06-05 Outpatient Chet HIDALGO [facility] [id number] Univers 13:30:00 13:30:00 JENNA [id number] [facility] 2021-06-05 2021-06-05 Outpatient [facility] [id number] Univers 13:30:00 13:30:00 JENNA [facility] 2021-05-15 2021-05-15 [facility] [id number] Univers 15:01:19 15:16:19 Visit [facility] [id number] it y of [place] [id number] Eddie as Romeo?Blea [id number] Ok liset[address] Medical Office Building 2021-05-15 2021-05-15 Outpatient Chet [facility] [id number] Univers 15:00:00 15:00:00 JENNA [id number] [facility] 2021-05-15 2021-05-15 Outpatient Che[facility] [id number] Univers 15:00:00 15:00:00 [facility] 2021-05-10 2021-05-10 Outpatient Chet HIDALGO [facility] [id number] Univers 13:00:00 13:00:00 JENNA [id number] [facility] 2021-05-10 2021-05-10 Outpatient [facility] [id number] Univers 13:00:00 [facility]:00[facility]-04-19 2021-04-19 [facility] [id number] Univers 15:25:00 23:59:00 [facility] 2021-04-19 2021-04-19 Outpatient [facility]t [facility] [id number] Univers 15:15:00 15:15:00 ANJU [id number] [facility] 2021-02-21 2021-02-21 Outpatient STLMLC STLMLC [id number] Common 00:00:00 00:00:00 [facility] 2021-02-21 2021-02-21 Outpatient STLMLC STLMLC [id number] Common 00:00:00 00:00:00 [facility] 2021-02-08 2021-02-08 Outpatient STLMLC STLMLC [id number] Common 00:00:00 00:00:00 [facility] 2021-02-06 2021-02-06 Outpatient STLMLC STLMLC [id number] Common 00:00:00 00:00:00 [facility] 2021-01-20 2021-01-20 Outpatient Chet HIDALGO [facility] [id number] Univers 08:30:00 08:30:00 JENNA [id number] [facility] 2021-01-20 2021-01-20 Out[facility] [id number] Univers 08:30:00 08:30:00 [facility] 2021-01-02 2021-01-02 Outpatient STLMLC STLMLC [id number] Common 00:00:00 00:00:00 [facility] 2020-12-21 2020-12-21 Outpatient Chet ANDERSON [facility] [id number] Univers 13:30:00 13:30:00 CARLOS [id number] [facility] 2020-12-21 2020-12-21 Outpatient R MONICA [facility] [id number] Univers 13:30:00 13:30:00 CARLOS [facility] 2020-12-12 2020-12-12 Outpatient STLMLC STLMLC [id number] Common 00:00:00 00:00:00 [facility] 2020-12-12 2020-12-12 Outpatient STLMLC STLMLC [id number] Common 00:00:00 00:00:00 [facility] 2020-12-06 2020-12-06 [facility] [id number] 09:33:00 10:58:00 Elena Jackson [id number] [place] [id number] [place] [id number] 2020-11-29 2020-11-29 Outpatient STLMLC STLMLC [id number] Common 00:00:00 00:00:00 [facility] 2020-11-10 2020-11-10 Patient Sanjay [facility] [id number] 00:00:00 00:00:00 Outreach [facility] [id number] [facility] [id number] [place] [id number] 2020-10-22 2020-10-22 Emergency AndreaDionne tracy [facility] 1.2.840 .114 [id number] 13:44:00 16:22:00 Tori Shaw [id number] 0 [place] [id number] [place] [id number] 2020-03-15 2020-03-15 Outpatient DAMIAN ROJAS [facility] [id number] Univers 10:00:00 10:00:00 [id number] [facility] 2020-03-11 2020-03-11 Outpatient R DAMIAN MARROQUIN [facility] [id number] Univers 09:00:00 09:00:00 [id number] [facility] 2020-01-07 2020-01-07 Telephone Ana [facility] [id number] [id number] 00:00:00 00:00:00 [facility] [id number] [place] [id number] Professio [id number] nal 044 Office Building [facility] 2019-11-03 2019-11-03 [facility]phone [facility] [id number] 00:00:00 00:00:00 Kaylah [facility] [id number] [place] [id number] Professio [id number] nal [facility] Office Building [facility] 2019-11-02 2019-11-02 Outpatient R RADIOLOGY [facility] [id number] Univers 15:39:02 23:59:00 [facility] 2019-11-02 2019-11-02 Hospital Radiology [facility] [id number] [id number] 15:30:00 23:59:00 Encounter [place] [id number] [place] [id number] [place] [id number] 2019-11-02 2019-11-02 Outpatient R RADIOLOGY [facility] [id number] Univers 15:30:00 15:30:00 [facility] 2019-11-02 2019-11-02 Orders Doctor MAE [id number] 00:00:00 00:00:00 Only Unassigned, ERICA [id number] [place] [facility] [id number] 2019-10-28 2019-10-28 [facility] [id number] 15:11:42 15:59:11 Visit Kaylah [facility] [id number] [place] [id number] Professio [id number] nal 044 Office Building One 2019-10-28 2019-10-28 Outpatient R NEW [facility] [id number] Univers 15:20:00 15:20:00 KAYLAH [id number] [place] [facility] 2019-10-28 2019-10-28 Outpatient Chet WOLFF [facility] [id number] Univers 15:20:00 15:20:00 KAYLAH arboleda [facility] 2019-10-26 2019-10-26 Emergency X SINGER [facility] ERT [id number] Univers 16:50:10 19:30:00 ELENA [facility] 2019-05-18 2019-05-18 Emergency X HANS [facility] ERT [id number] Univers 12:49:44 15:02:00 ANDREW [facility] Results Test Description Test Time Test Comments Results Result Comments Source BASIC METABOLIC PANEL (NA, K, CL, CO2, GLUCOSE, BUN, 2021-12 16:31:47 CREATININE, CA) Test Item Value Reference Range Interpretation Comme nts NA (test code = 8129819787) 142 mmol/L 135-145 K (test code = 5895469297) 4.2 mmol/L 3.5-5.0 CL (test code = 6108514472) 109 mmol/L 98-108 H CO2 TOTAL (test code = 4603298634) 22 mmol/L 23-31 L AGAP (test code = 8506626948) 2-16 BUN (test code = 4803264917) 12 mg/dL 7-23 GLUCOSE (test code = 1096290349) 89 mg/dL 70-110 CREATININE (test code = 0.75 mg/dL 0.50-1.04 9125434528) CALCIUM (test code = 6297302466) 8.9 mg/dL 8.6-10.6 eGFR (test code = 4974029855) mL/min/1.73m2 BRITTANY (test code = BRITTANY) Association of Glomerular Filtration Rate (GFR) and Staging of Kidney Disease* + +-------- + ------+| GFR (mL/min/1.73 m2) ?| With Kidney Damage ?| ?Without Kidney Damage+ +-- + +| ?>90 ?| ?Stage one ?| ? Normal ?+ +------- + -------+| ?60-89 ?| ?Stage two ?| ? Decreased GFR ? + +-------- + ------+| ?30-59 ?| ?Stage three ?| ? Stage three ? + +-------- + ------+| ?15-29 ?| ?Stage four ? | ? Stage four ?+ +------- + -------+| ?<15 (or dialysis) ? ?| ?Stage five ? | ? Stage five ?+ +------- + -------+ *Each stage assumes the associated GFR level has been in effect for at least three months. ?Stages 1 to 5, with or without kidney disease, indicate chronic kidney disease. Notes: Determination of stages one and two (with eGFR >59mL/min/1.73 m2) requires estimation of kidney damage for at least three months as defined by structural or functional abnormalities of the kidney, manifested by either:Pathological abnormalities or Markers of kidney damage (including abnormalities in the composition of the blood or urine or abnormalities in imaging tests). Lab Interpretation (test code = Abnormal 39140-9) [facility] (ALB,T.PRO,BILI T,BU/BC,ALT,AST,ALK PHOS)2022-01-05 16:31:47 Test Item Value Reference Range Interpretation Comments TOTAL BILI (test code = 6738936729) 0.4 mg/dL 0.1-1.1 BILI UNCON (test code = 6135099383) 0.2 mg/dL 0.1-1.1 BILI CONJ (test code = 5472683547) 0.0 mg/dL 0.0-0.3 T PROTEIN (test code = 6285294042) 7.1 g/dL 6.3-8.2 ALBUMIN (test code = 7959478474) 4.4 g/dL 3.5-5.0 ALK PHOS (test code = 4524758930) 68 U/L 34-122 ALTv (test code = 1742-6) 21 U/L 5-35 AST(SGOT) (test code = 5712265749) 22 U/L 13-40 Lab Interpretation (test code = Normal 91858-7) [facility] Test Item Value Reference Range Interpretation Comments LIPASE (test code = 5820204139) 123 U/L 0-220 Lab Interpretation (test code = Normal 79319-1) [facility] WITH [id number] 16:18:07 Test Item Value Reference Range Interpretation Comments WBC (test code = See_Comment [Automated 6690-2) message] The sy stem which generated this result transmitted reference range : 4.30 - 11.10 10*3/?L. The reference range was not used to interpret this result as normal/abnormal . RBC (test code = See_Comment [Automated 789-8) message] The sy stem which generated this result transmitted reference range : 3.93 - 5.25 10*6/?L. The reference range was not used to interpret this result as normal/abnormal . HGB (test code = 14.7 g/dL 11.6-15.0 718-7) HCT (test code = 42.9 % 35.7-45.2 4544-3) MCV (test code = 89.2 fL 80.6-95.5 787-2) MCH (test code = 30.6 pg 25.9-32.8 785-6) MCHC (test code = 34.3 g/dL 31.6-35.1 786-4) RDW-SD (test code = 41.6 fL 39.0-49.9 93373-2) RDW-CV (test code = 12.6 % 12.0-15.5 788-0) PLT (test code = See_Comment [Automated 777-3) message] The sy stem which generated this result transmitted reference range : 166 - 358 10*3/ ?L. The reference r tae was not used to interpret this result as normal/abnormal . MPV (test code = 10.4 fL 9.5-12.9 70578-6) NRBC/100 WBC (test See_Comment [Automat ed code = 6177267778) message] The system which generated this result transmitted reference range : 0.0 - 10.0 /100 WBCs. The refer ence range was not u sed to interpret th is result as normal/abnormal . NRBC x10^3 (test code <0.01 See_Comment [Auto mated = 1453966216) message] The s ystem which generated this result transmitted reference range : 10*3/?L. The reference range was not used to interpret this result as normal/abnormal . GRAN MAT (NEUT) % 53.5 % (test code = 770-8) IMM GRAN % (test code 0.60 % = 2540459828) LYMPH % (test code = 28.5 % 736-9) MONO % (test code = 8.6 % 5905-5) EOS % (test code = 7.7 % 713-8) BASO % (test code = 1.1 % 706-2) GRAN MAT x10^3(ANC) 3.35 10*3/uL 1.88-7.09 (test code = 9631211626) IMM GRAN x10^3 (test 0.04 10*3/uL 0.00-0.06 code = 8354095927) LYMPH x10^3 (test code 1.79 10*3/uL 1.32-3.29 = 731-0) MONO x10^3 (test code 0.54 10*3/uL 0.33-0.92 = 742-7) EOS x10^3 (test code = 0.48 10*3/uL 0.03-0.39 H 711-2) BASO x10^3 (test code 0.07 10*3/uL 0.01-0.07 = 704-7) Lab Interpretation Abnormal (test code = 11397-2) [id number] 16:08:00 Test Item Value Reference Range Interpretation Comments POCT PREG (test code = 1605) Negative On board controls acceptable with Present C Line (test code = 3574) POCT PREG LOT # (test code = 3575) [id number] POCT PREG TEST DATE (test 05/25/2023 code = 3576) Lab Interpretation (test code = Normal 07543-7) [facility]"
--- NOTE | 2022-05-03 13:37 | RAD REPORT ---
EXAM DESCRIPTION: US - BREAST/AXILLA, LIMITED - 05/03/2022 1:21 pm CLINICAL HISTORY: Palpable mass lateral left breast COMPARISON: No mammogram for comparison FINDINGS: Retroareolar and lateral left breast sonography performed. In the periareolar 3 o'clock left breast there is a 10 x 8 x 4 mm hypoechoic mass. This is believed t o be part of a dilated duct with a dilated duct seen extending to the nipple. There is echogenic debr is within this dilated duct structure but no papilloma or other focal mass identifiable. No other mas s identifiable. IMPRESSION: Focal 10 x 8 mm hypoechoic mass 3 o'clock left breast at the site of palpable abnormalit y. Focal mass is believed to be part of a dilated duct. No papilloma or other intra duct mass identified . Occult mass or infectious/inflammatory process are possible.
--- NOTE | 2022-05-03 14:42 | EDPHYS ---
Physician Documentation [facility] Name: Joy Strauss Age: 46 yrs Sex: Female : 1975 Arrival Date: 05/03/2022 Time: 12:20 Bed 9 Private MD: [facility] ED Physician Juan Manuel Padilla HPI: 05/03 12:55 This 46 yrs old Female presents to ER via Ambulatory with complaints of Breast Lump. [facility] 12:55 Onset: The symptoms/episode began/occurred last night. Patient reports that she was in [facility] the shower last night and noticed a large lump on her left breast. States that it was the size of a golf ball last night, but today it is about the size of a marble. States that the area is tender, but she denies fever/redness.. PRODUCTION HAND: 12:52 LMP 04/26/2022 ld1 Historical: - Allergies: 12:52 NKA; ld1 - PMHx: 12:52 Asthma; Back pain; Chronic pain; Degenerative disc disease; herniated discs; Lupus; RA; ld1 scoliosis; - PSHx: 12:52 Cholecystectomy; ld1 - Immunization history:: Adult Immunizations up to date, Client reports having NOT received the Covid vaccine. - Social history:: Smoking status: Patient denies any tobacco usage or history of. Patient/guardian denies using alcohol. ROS: 12:55 Constitutional: Negative for fever, chills, and weight loss, Eyes: Negative for injury, jh7 pain, redness, and discharge, Cardiovascular: Negative for chest pain, palpitations, and edema, Respiratory: Negative for shortness of breath, cough, wheezing, and pleuritic chest pain, Abdomen/GI: Negative for abdominal pain, nausea, vomiting, diarrhea, and constipation, Back: Negative for injury and pain, MS/Extremity: Negative for injury and deformity, Neuro: Negative for headache, weakness, numbness, tingling, and seizure. 12:55 Skin: Positive for Left breast mass. 12:55 All other systems are negative. Exam: 12:55 Constitutional: This is a well developed, well nourished patient who is awake, alert, [facility] and in no acute distress. Head/Face: Normocephalic, atraumatic. Neck: Trachea midline, no thyromegaly or masses palpated, and no cervical lymphadenopathy. Supple, full range of motion without nuchal rigidity, or vertebral point tenderness. No Meningismus. Cardiovascular: Regular rate and rhythm with a normal S1 and S2. No gallops, murmurs, or rubs. Normal PMI, no JVD. No pulse deficits. Respiratory: Lungs have equal breath sounds bilaterally, clear to auscultation and percussion. No rales, rhonchi or wheezes noted. No increased work of breathing, no retractions or nasal flaring. Abdomen/GI: Soft, non-tender, with normal bowel sounds. No distension or tympany. No guarding or rebound. No evidence of tenderness throughout. Back: No spinal tenderness. No costovertebral tenderness. Full range of motion. Skin: Warm, dry with normal turgor. Normal color with no rashes, no lesions, and no evidence of cellulitis. MS/ Extremity: Pulses equal, no cyanosis. Neurovascular intact. Full, normal range of motion. Neuro: Awake and alert, GCS 15, oriented to person, place, time, and situation. Motor strength 5/5 in all extremities. Sensory grossly intact. Normal gait. 12:55 Chest/axilla: Breasts: mass(es), that is small, in the left breast, that is tender, that is fixed, No redness, rash, or nipple discharge noted.. Vital Signs: 12:52 BP 145 / 96; Pulse 98; Resp 18; Temp 97.8(TE); Pulse Ox 100% on R/A; Weight 83.91 kg; ld1 Height 5 ft. 1 in. (154.94 cm); Pain 0/10; 12:52 Body Mass Index 34.96 (83.91 kg, 154.94 cm) ld1 MDM: 12:26 Patient medically screened. [facility] 14:00 Differential diagnosis: Breast neoplasm, breast cyst, breast abscess. Data reviewed: [facility] vital signs, nurses notes, radiologic studies, ultrasound. Data interpreted: Pulse oximetry: is 100 %. Interpretation: normal. Counseling: I had a detailed discussion with the patient and/or guardian regarding: the historical points, exam findings, and any diagnostic results supporting the discharge/admit diagnosis, the need for outpatient follow up, a general surgeon. Physician consultation: Griffin Enriquez MD was called at 14:00, was contacted at 14:00, regarding patient's condition, outpatient follow-up, tomorrow, Discussed patient's ultrasound finding with Dr. Enriquez. He advised to have the patient follow-up with Dr. Post tomorrow.. ED course: Discussed the ultrasound findings with the patient. Informed the patient that the ultrasound showed a hypoechoic mass and that neoplasm cannot be ruled out. Informed her that if her symptoms worsen, or she develops redness, increased swelling, or fever, to return to the ER.. 05/03 12:44 Order name: BREAST/AXILLA, LIMITED; Complete Time: 13:52 EDMS Administered Medications: No medications were administered Disposition: 16:39 Co-signature as Attending Physician, Juan Manuel Padilla DO I agree with the assessment and ms3 plan of care. Disposition Summary: 05/03/22 14:41 Discharge Ordered Location: Home [facility] Problem: new [facility] Symptoms: are unchanged [facility] Condition: Stable [facility] Diagnosis - Left Breast Mass [facility] Followup: [facility] - With: Angelito Post MD - When: Tomorrow - Reason: Recheck today's complaints Discharge Instructions: - Discharge Summary Sheet 7 - Breast Biopsy 7 - Breast Ultrasound [facility] Forms: - Medication Reconciliation Form 7 - Thank You Letter 7 Signatures: Dispatcher [employer] EDMA Juan Manuel aPdilla DO DO ms3 Antionette Paula, RN RN ld1 Cary Seaman, CLAY CASTER CLAY CASTER 7 Corrections: (The following items were deleted from the chart) 12:44 12:34 Extrmty Nonvasular Limited+US.RAD.BRZ ordered. EDMA EDMA 12:52 12:52 PSHx: None; ld1 ld1
--- NOTE | 2022-05-03 14:42 | ER ---
Nurse's Notes [facility] Name: Joy Strauss Age: 46 yrs Sex: Female : 1975 Arrival Date: 05/03/2022 Time: 12:20 Bed 9 Private MD: Prakash Higgins Diagnosis: Left Breast Mass Presentation: 05/03 12:53 Chief complaint: Patient states: Last night I noticed a lump in my left breast - golf ld1 ball sized. Today it seems to have shrunk. Denies pain. Coronavirus screen: At this time, the client does not indicate any symptoms associated with coronavirus-19. Ebola Screen: No symptoms or risks identified at this time. Initial Sepsis Screen: Does the patient meet any 2 criteria? No. Patient's initial sepsis screen is negative. Does the patient have a suspected source of infection? No. Patient's initial sepsis screen is negative. Risk Assessment: Do you want to hurt yourself or someone else? Patient reports no desire to harm self or others. Onset of symptoms was May 03, 2022. 12:53 Method Of Arrival: Ambulatory ld1 12:53 Acuity: FÉLIX 3 ld1 Triage Assessment: 12:52 General: Appears in no apparent distress. comfortable, Behavior is calm, cooperative, ld1 appropriate for age. Pain: Denies pain. EENT: No signs and/or symptoms were reported regarding the EENT system. Neuro: Level of Consciousness is awake, alert, obeys commands, Oriented to person, place, time, situation. Cardiovascular: Capillary refill < 3 seconds Patient's skin is warm and dry. Respiratory: Airway is patent Respiratory effort is even, unlabored. GI: Abdomen is round non-distended. : No signs and/or symptoms were reported regarding the genitourinary system. Derm: No signs and/or symptoms reported regarding the dermatologic system. Musculoskeletal: No signs and/or symptoms reported regarding the musculoskeletal system. ELECTRONIC TESTER: 12:52 LMP 04/26/2022 ld1 Historical: - Allergies: 12:52 NKA; ld1 - PMHx: 12:52 Asthma; Back pain; Chronic pain; Degenerative disc disease; herniated discs; Lupus; RA; ld1 scoliosis; - PSHx: 12:52 Cholecystectomy; ld1 - Immunization history:: Adult Immunizations up to date, Client reports having NOT received the Covid vaccine. - Social history:: Smoking status: Patient denies any tobacco usage or history of. Patient/guardian denies using alcohol. Vital Signs: 12:52 BP 145 / 96; Pulse 98; Resp 18; Temp 97.8(TE); Pulse Ox 100% on R/A; Weight 83.91 kg; ld1 Height 5 ft. 1 in. (154.94 cm); Pain 0/10; 12:52 Body Mass Index 34.96 (83.91 kg, 154.94 cm) ld1 ED Course: 12:20 Patient arrived in ED. am2 12:20 Prakash Higgins DO is Private Physician. am2 12:24 Cary Seaman [facility] jh7 12:24 Juan Manuel Padilla DO is Attending Physician. jh7 12:52 Arm band placed on right wrist. ld1 12:54 Triage completed. ld1 13:23 BREAST/AXILLA, LIMITED In Process Unspecified. EDMS 14:11 Yenny Morrissey, RN is Primary Nurse. iw 14:39 Angelito Post MD is Referral Physician. [facility] Administered Medications: No medications were administered Outcome: 14:41 Discharge ordered by . 7 14:59 Patient left the ED. iw Signatures: Dispatcher [employer] EDYenny Toscano, SREEDHAR ELI Melissa [facility] Antionette Paula RN RN ld1 Cary Seaman FNP INFORMATION MANAGER [facility] Corrections: (The following items were deleted from the chart) 12:52 12:52 PSHx: None; ld1 ld1
[2022-05-03 15:14] VITALS: BP 145/96; TEMP 97.8; O2SAT 100
== END 2022-05-03 14:59 | disposition home or self-care (01) ==
LOC: ER 12:18
DX: N63.20 Unspecified lump in the left breast, unspecified quadrant (principal)
CPT/HCPCS: 76642; 99282

== ENCOUNTER 2022-05-21 07:38 | Day surgery (SDC) | payer OTHER ==
[2022-05-18 11:25] LABS: Absolute Lymphocytes (CBC) 1.9 K/uL (0.7-4.9); Hematocrit 42.8 % (36.0-45.0); Lymphocytes % 30.7 % (15.3-44.8); MCV 87.9 fL (80-100); MPV 8.2 fL (7.6-11.3); RBC Red Blood Cell Count 4.87 M/uL (3.86-4.86)
[2022-05-18 11:34] LABS: Potassium 4.2 mmol/L (3.5-5.1)
--- NOTE | 2022-05-18 11:35 | RAD REPORT ---
EXAM DESCRIPTION: RAD - Chest Pa And Lat (2 Views) - 05/18/2022 11:21 am CLINICAL HISTORY: pre procedure screening COMPARISON: Portable 11/01/2020 TECHNIQUE: Frontal and lateral views of the chest were obtained. FINDINGS: The lungs are clear of failure, infiltrate or mass. Chronic interstitial pattern matches c omparison. A mild interstitial edema or infiltrative process could be masked by the chronic pattern. Heart size is normal and central vasculature is within normal limits. No pleural effusion or pneum othorax seen. No acute bony finding noted. No aortic abnormality. IMPRESSION: No acute cardiopulmonary process. No significant change from comparison. Patient's baseline interstitial pattern could potentially mask minimal interstitial edema or infiltra te.
[2022-05-18 12:13] LABS: SARS-CoV-2 Antigen Rapid Res Negative (Negative)
[2022-05-21] MEDS ORDERED: CEFAZOLIN SODIUM 1 GM/VIAL ONE (08:25)
[2022-05-21] MEDS ORDERED: Ringers Lactate 1,000 ML IV ONE (08:25)
[2022-05-21] MEDS ORDERED: METHYLENE BLUE 0.5% 10 ML AMP ONE (10:53)
[2022-05-21] MEDS ORDERED: MIDAZOLAM HCL 2 MG/2 ML INJ ONE (10:57)
[2022-05-21] MEDS ORDERED: LIDOCAINE 2% MPF 5 ML VIAL ONE (11:04)
[2022-05-21] MEDS ORDERED: ROCURONIUM 50 MG/5 ML VIAL IV ONE (11:04)
[2022-05-21] MEDS ORDERED: FENTANYL CITR 100 MCG/2 ML ONE (11:04)
[2022-05-21] MEDS ORDERED: propofoL 200 MG/20 ML VIAL IV ONE (11:04)
[2022-05-21] MEDS ORDERED: ONDANSETRON 4 MG/2 ML VIAL ONE (11:04)
[2022-05-21] MEDS ORDERED: dexAMETHasone 4 MG/ML VIAL ONE (11:29)
[2022-05-21] MEDS ORDERED: Mastisol Adhesive Liq ONE (11:48)
[2022-05-21] MEDS ORDERED: GLYCOPYRROLATE 0.2 MG/ML SYR ONE (11:50)
--- NOTE | 2022-05-21 11:50 | P.BOP ---
Preoperative diagnosis: left breast tender mass, hx of infection Postoperative diagnosis: same Primary procedure: LEft breast lumpectomy needle localized Sample Supervisor: Brigid Garay (Seema) Estimated blood loss: <10cc Specimen: left breast mass with intact wire Findings: Lesion within the specimen by Dr Stover Anesthesia: General Complications: None Transferred to: Recovery Room Condition: Good
[2022-05-21] MEDS ORDERED: NEOSTIGMINE 1 MG/ML -10 ML VIAL ONE (11:52)
[2022-05-21] MEDS ORDERED: HYDROMORPHONE HCL 1 MG/ML INJ ONE ×2 (12:24→12:47)
--- NOTE | 2022-05-21 12:25 | RAD REPORT ---
EXAM DESCRIPTION: US - Surgical Specimen - 05/21/2022 12:09 pm CLINICAL HISTORY: Breast mass IMPRESSION: The small hypoechoic mass localized by ultrasound appears to lie within the resected louie gical specimen.
--- NOTE | 2022-05-21 12:34 | RAD REPORT ---
EXAM DESCRIPTION: US - Brst,Preop NL Wire Init w/Guid - 05/21/2022 10:08 am CLINICAL HISTORY: Breast mass FINDINGS: The skin, subcutaneous tissues and breast tissue were anesthetized with lidocaine. Under sonographic guidance a Kopan's hook wire was placed adjacent to the 7 millimeter mass within th e outer left breast. The patient then left for the surgical department IMPRESSION: Ultrasound-guided needle wire localization of a left breast mass
[2022-05-21 14:01] VITALS: BP 127/80; TEMP 97.2; O2SAT 99
--- NOTE | 2022-05-21 14:15 | EKG ---
Test Date: 2022-05-18 Test Time: 11:31:19 Addiction Medicine Physician: RADHA MEASUREMENT RESULTS: Intervals: Rate: 98 OR: 98 QRSD: 76 QT: 330 QTc: 421 Onia: P: 31 OR: 98 QRS: 82 T: 46 INTERPRETIVE STATEMENTS: Sinus rhythm with short OR Otherwise normal ECG Compared to ECG 11/04/2020 17:05:40 Short OR interval now present Sinus tachycardia no longer present ST (T wave) deviation no longer present Electronically Signed On 05-21-22 14:10:47 CDT by Renard Barbour
--- NOTE | 2022-05-22 01:15 | OP ---
Date of Procedure: 05/21/2022 Surgeon: Angelito Post MD Fortune Teller: Brigid Greenwood. Preoperative Diagnosis: Left breast tender mass, history of infection. Postoperative Diagnosis: Left breast tender mass, history of infection. Procedure: Left breast lumpectomy, needle localized. Estimated Blood Loss: Less than 10 mL. Specimen: Lesion with intact wire. Findings: Lesion within the specimen by Dr. Maier radiologist. Anesthesia: General plus local. Complications: None. Indications: This is the case of a 46-year-old patient who came to us with a palpable mass, that was at one point tender, red. The redness improved, and then the lump still remained there. It was con firmed on the imaging. She had different options from observation, physical exam, core biopsies, rep eat imaging, but she wants the mass removed. So, we offered her left breast lumpectomy needle locali zed with benefits, alternatives, and risks including, but not limited to infection, bleeding, damage to adjacent structures as complication, recurrence, OR, and even . She also understands this ma y not relieve her symptoms. She might need more than one surgical intervention. She understood and signed the consent. The area of concern was localized this morning by the radiologist with a wire. Description Of Procedure: The patient was brought to the OR making sure that wire was protected at a ll times. At that moment, we brought the patient to the operating room, placed in supine position, a nesthesia was done without complication. The left breast was prepped and draped in the usual sterile fashion making sure the wire remained intact. A time-out was called. After that, local anesthesia was applied followed by a curvilinear incision around the periareolar region. The wire was then iden tified and secured in the specimen, and then a lump was removed from that region and sent out to radi ologist with the wire in. The area was irrigated. The lesion was within the specimen by Dr. Claire keane. This was closed after irrigation and hemostasis we closed the area with 3-0 chromic and 4-0 PDS. The patient tolerated the procedure well. Steri-Strips placed over the area. The patient was sent to recovery in stable condition. Diagnosis: Left breast tender mass. Procedures: Left breast lumpectomy, needle localized. Disposition: Home. Activity: As tolerated, no heavy lifting. Followup: Follow up in my office in one week, call for appointment at [phone]. Keep the area dry f or 48 hours, then may shower. Keep Steri-Strips intact. Use breast support. SANIYA Voice ID: [id number] Report ID: [id number]
== END 2022-05-21 13:45 | disposition home or self-care (01) ==
LOC: OR 07:38
PROVIDERS: ATTEND Surgery
PROC: 0HBU0ZZ Excision of Left Breast, Open Approach (ICD-10-PCS; principal; 2022-05-21 10:30)
DX: N60.42 Mammary duct ectasia of left breast (principal); N64.1 Fat necrosis of breast; N63.20 Unspecified lump in the left breast, unspecified quadrant; Z20.822 Contact with and (suspected) exposure to COVID-19
CPT/HCPCS: 93005; 85025; 80048; 36415; 88305; 71046; 76098; 19285; 87811; 19301; J2704; J1100; J2710; J2001; J2250; J3010; J1170 ×2; J7120; J2405; J0690; 88307; Q9968

== ENCOUNTER 2022-07-29 17:11 | Observation (INO) | payer OTHER ==
--- OUTSIDE RECORDS SUMMARY | 2022-07-29 17:15 | XMS REPORT | Continuity of Care Document ---
:1975 Author Organization [facility] t Address [address] [place] [address] [address] [place] [address] Care Team Providers Name Role Phone ADELFO MONTEIRO Primary Care Physician Unavailable Prakash Higgins Attending Clinician Unavailable Sania Yancey MD Attending Clinician Bill GRAPHIC ART SALES REPRESENTATIVESanta Attending Clinician SANIA YANCEY Attending Clinician Unavailable Doctor Unassigned, [place] Attending Clinician Unavailable YANNICK VÁSQUEZ Attending Clinician Unavailable Ebrahim GRAPHIC ART SALES REPRESENTATIVE, Rania Attending Clinician Green GRAPHIC ART SALES REPRESENTATIVE Mary Kay Attending Clinician CARLOSGARY BRIAN Attending Clinician Unavailable Carlos GRAPHIC [employer] SALES REPRESENTATIVE Cynise Attending Clinician Only, Ang Db Test Attending Clinician Unavailable SANTA PEREZ Attending Clinician Unavailable JENNA HIDALGO Attending Clinician Unavailable Jenna Garcia Attending Clinician Jason Perkins MD Attending Clinician CARLOS ANDERSON Attending Clinician Unavailable Elena Bal DO Attending Clinician Willy Grace DO Attending Clinician Mariela STEINBERG, Dionne Person Attending Clinician Tori Shaw DO Attending Clinician Kaylah Pool Attending Clinician RADIOLOGY Attending Clinician Unavailable Radiology Attending Clinician Unavailable KAYLAH WOLFF Attending Clinician Unavailable ELENA BAL Attending Clinician Unavailable ANDREW MAXWELL Attending Clinician Unavailable GARY GONZALEZ Admitting Clinician Unavailable ADELFO MONTEIRO Admitting Clinician Unavailable ELENA BAL Admitting Clinician Unavailable Payers Payer Name Policy Type Policy Number Effective Date Expiration Date S jama MEDICARE PART A [id number] 2006 \\T\\ B 00:00:00 [employer] [id number] 2016 HEALTHCARE 00:00:00 MEDICAID [place] [id number] 2011 [place] 00[place]00 [place] [id number] 2020 Common 00:00:00 [facility] MEDICARE NOVITAS MB [id number] 2006 Common 00:00:00 [facility] MEDICAID [id number] 2020 Common 00:00:[address] [facility] MEDICARE NOVITAS MB [id number] 2006 Common 00:00:00 [facility] HUMANA GOLD PLS [id number] 2019 2020 HMO 00:00:00 00:00:00 Problems Condition Condition Condition Status Onset Resolution Last Treating Co mments Source Name Details Category Date Date Treatment Clinician Date Right Right Disease Active Univers ankle pain ankle pain 9-20 it y of 00:00: [place] [address] Medical Branch Encounter Encounter Disease Active Uni vers for for 5-24 ity of [place]iliz[place] [address] [place] [address] Branch Lupus Lupus Problem Common [facility] [id number] Body mass Problem Com mon index Spirit [BMI] - CHI 35.0-35.9, [facility] [id number] Morbid Problem Commo n 9104 (severe) [facility] obesity - [facility] due to [facility] [id number] Uncomplica Problem Com mon olivia opioid Spirit dependence - [facility] [id number] Current Problem Common moderate Spirit episode of - CHI major depressive [facility] disorder Medical without Center prior episode [id number] Bipolar Problem Commo n affective Spirit disorder, - CHI currently [facility] [id number] Primary Problem Common insomnia Spirit - [facility] [id number] SPENCER Problem Common (generaliz Spirit ed anxiety - CHI disorder) [facility] [id number] Ulcerative Problem Com mon colitis Spirit with - CHI complicati St on, [facility] unspecifie Medica l d location Center [id number] Chronic Problem Common fatigue Spirit - [facility] [id number] Gastroesop Problem Co mmon hageal Spirit reflux - CHI disease St without [facility] esophagiti Medica l s Center [id number] Migraine Problem Comm on without Spirit aura and - CHI without [facility] migrainosu Medica l s, not Center intractabl e [id number] Other Problem Common chronic Spirit pain - [facility] [id number] DDD Problem Common (degenerat Spirit bandar disc - CHI disease), [facility] [id number] Vitamin D Problem Comm on deficiency Spirit - [facility] [id number] Systemic Problem Commo n lupus Spirit erythemato - CHI heather, St unspecie [facility] d SLE Medical type, Center unspecifie d organ involvemen t status Allergies, Adverse Reactions, Alerts Allergy Allergy Status Severity Reaction(s) Onset Inactive Treating Comm ents Source Name Type Date Date Clinician NO KNOWN Drug Active Univers ALLERGIE Class ity of S [facility] [place] [facility] Social History Social Habit Start Date Stop Date Quantity Comments Source History of Common Spirit - Tobacco Use [facility] Sex Assigned At Common Sp meghana - [facility] Exposure to 2022-05-20 2022-05-30 Not sure [facility] SARS-CoV-2 00:00:00 11:27:00 [facility] (event) [place] Alcohol intake 2022-05-30 2022-05-30 0 /d University of 00:00:00 00:00:00 [facility] [place] [facility] Tobacco use and 2016-05-15 2016-05-15 Smokeless tobacco Un iversity of exposure 00:00:00 00:00:00 non-user [facility] [place] [facility] Smoking Status Start Date Stop Date Source Never Smoker Common Spirit - [facility] Medications Ordered Filled Start Stop Current Ordering Indication Dosage Frequency Signature Comments Components Source Medication Medication Date Date Medication? Clinician (SIG) Name Name Ramon Navarro 2021-08 No 40mg Common (Triamcinol (Triamcinol 1-09 S pirit one) one) 00:00: - CHI 00 [facility] hydroxychlo 2021-08 Yes Take by Uni vers roquine 0-05 mouth. ity of sulfate 11:33: [place] (PLAQUENIL 32 Medical ORAL) Branch proMETHazin 2021-08 Yes [id number] 25mg Take 1 Univers e 25 mg 0-05 tablet by ity of tablet 00:00: mouth [place] 00 every 6 Medical (six) Branch hours as needed for Nausea and Vomiting (N/V). proMETHazin No [id number] 25mg Take 1 Univers e 25 mg 5-24 05-30 tablet by ity of tablet 00:00: 04:59 mouth [place] 00 :00 every 6 Medical (six) Branch hours for 5 days. ondansetron No 4mg 4 mg, Slow Univers (ZOFRAN 01-05-13 IV Push, ity of (PF)) 17:00: 16:46 ONCE, 1 [place] injection 4 00 :00 dose, On Medi kiersten mg Fri Branch 01/05/22 at 1200, TOY ketorolac No 15mg 15 mg, Unive rs tromethamin -05 01-13 Slow IV ity of e (TORADOL) 17:00: 17:00 [place] injection [place] :00 ONCE, 1 Medical 15 mg dose, On Branch 01/05/22 at 1200, TOY docusate 2021- No [id number] 100mg Take 1 Univers 100 mg 5-05 02-13 capsule by ity of capsule 00:00: 04:59 mouth [place] 00 :00 daily for Medical 30 days. Branch docusate 2021- No [id number] 100mg Take 1 Univers 100 mg 5-13 -13 capsule by ity of capsule 00:00: 04:59 mouth [place] 00 :00 daily for Medical 30 days. Branch polyethylen 2021- No [id number] 17g Take 17 g Univers e glycol 01-05-19 by mouth 2 ity of 3350 00:00: 04:59 (two) [place] (MIRALAX) 00 :00 times Medical 17 daily for Branch gram/dose 5 days. powder sennosides 2021- No [id number] 8.6mg Take 1 Univers (SENOKOT) 01-05 tablet by ity of 8.6 mg 00:00: 04:59 mouth [place] tablet 00 :00 daily for Medical 5 days. Branch hydroxychlo Yes Take by Uni vers roquine 7-15 mouth. ity of sulfate 19:46: [place] (PLAQUENIL 21 Medical ORAL) Branch hydroxychlo Yes Take by Uni vers roquine 7-15 mouth. ity of sulfate 19:46: [place] (PLAQUENIL 21 Medical ORAL) Branch hydroxychlo Yes Take by Uni vers roquine 7-15 mouth. ity of sulfate 19:46: [place] (PLAQUENIL 21 Medical ORAL) Branch hydroxychlo Yes Take by Uni vers roquine 7-15 mouth. ity of sulfate 19:46: [place] (PLAQUENIL 21 Medical ORAL) Branch hydroxychlo Yes Take by Uni vers roquine 7-15 mouth. ity of sulfate 19:46: [place] (PLAQUENIL 21 Medical ORAL) Branch proMETHazin Yes [id number] 25mg Insert 1 Univers e 25 mg 7-15 Suppositor [place]y of suppository 00:00: [place] 00 rectum Medical every 4 Branch (four) hours as needed for Nausea and Vomiting (N/V). proMETHazin Yes [id number] 25mg Insert 1 Univers e 25 mg 7-15 Suppositor ity of suppository 00:00: [place] 00 rectum Medical every 4 Branch (four) hours as needed for Nausea and Vomiting (N/V). proMETHazin Yes [id number] 25mg Insert 1 Univers e 25 mg 7-15 Suppositor ity of suppository 00:00: [place] 00 rectum Medical every 4 Branch (four) hours as needed for Nausea and Vomiting (N/V). proMETHazin Yes [id number] 25mg Insert 1 Univers e 25 mg 7-15 Suppositor ity of suppository 00:00: [place] 00 rectum Medical every 4 Branch (four) hours as needed for Nausea and Vomiting (N/V). proMETHazin 0 Yes [id number] 25mg Insert 1 Univers e 25 mg 7-15 Suppositor ity of suppository 00:00: [place] 00 rectum Medical every 4 Branch (four) hours as needed for Nausea and Vomiting (N/V). proMETHazin 0 Yes [id number] 25mg Insert 1 Univers e 25 mg 7-15 Suppositor ity of suppository 00:00: y [place] 00 rectum Medical every 4 Branch (four) hours as needed for Nausea and Vomiting (N/V). Omeprazole Omeprazole 0 No QD Omeprazole 20 MG 20 MG 6-17 20 MG 00:00: 00 Omeprazole Omeprazole 2020-0 No QD Omeprazole 20 MG 20 MG 6-17 20 MG 00:00: 00 Omeprazole Omeprazole 2020-0 No QD Omeprazole 20 MG 20 MG 6-17 20 MG 00:00: 00 Omeprazole Omeprazole 2020-0 No QD Omeprazole 20 MG 20 MG 6-17 20 MG 00:00: 00 Omeprazole Omeprazole 2020-0 No QD Omeprazole 20 MG 20 MG 6-17 20 MG 00:00: 00 naproxen 2020-0 Yes [id number] 550mg Take 1 Un gita sodium 4-13 tablet by ity of (ANAPROX 00:00: mouth 2 [place] DS) 550 mg 00 (two) Medical tablet times Branch daily with meals. methylPREDN 2020-0 Yes [id number] Take by Univers ISolone 4-13 mouth ity of (MEDROL, 00:00: SEE-INSTRU Eddie as HERMAN,) 4 mg 00 CTIONS. Medica l tablets follow Branch package directions naproxen 2020-0 Yes [id number] 550mg Take 1 Un gita sodium 4-13 tablet by ity of (ANAPROX 00:00: mouth 2 [place] DS) 550 mg 00 (two) Medical tablet times Branch daily with meals. methylPREDN 2020-0 Yes [id number] Take by Univers ISolone 4-13 mouth ity of (MEDROL, 00:00: SEE-INSTRU [place] as HERMAN,) 4 mg 00 CTIONS. Medica l tablets follow Branch package directions naproxen 2020-0 Yes [id number] 550mg Take 1 Un gita sodium 4-13 tablet by ity of (ANAPROX 00:00: mouth 2 [place] DS) 550 mg 00 (two) Medical tablet times Branch daily with meals. methylPREDN 2020-0 Yes [id number] Take by Univers ISolone 4-13 mouth ity of (MEDROL, 00:00: SEE-INSTRU [place] HERMAN,) 4 mg 00 CTIONS. Medica l tablets follow Branch package directions naproxen 2020-0 Yes [id number] 550mg Take 1 Un gita sodium 4-13 tablet by ity of (ANAPROX 00:00: mouth 2 [place] DS) 550 mg 00 (two) Medical tablet times Branch daily with meals. methylPREDN 2020-0 Yes [id number] Take by Univers ISolone 4-13 mouth ity of (MEDROL, 00:00: SEE-INSTRU [place] as HERMAN,) 4 mg 00 CTIONS. Medica l tablets follow Branch package directions naproxen 2020-0 Yes [id number] 550mg Take 1 Un gita sodium 4-13 tablet by ity of (ANAPROX 00:00: mouth 2 [place] DS) 550 mg 00 (two) Medical tablet times Branch daily with meals. methylPREDN 2020-0 Yes [id number] Take by Univers ISolone 4-13 mouth ity of (MEDROL, 00:00: SEE-INSTRU [place] as HERMAN,) 4 mg 00 CTIONS. Medica l tablets follow Branch package directions naproxen 2020-0 Yes [id number] 550mg Take 1 Un gita sodium 4-13 tablet by ity of (ANAPROX 00:00: mouth 2 [place] DS) 550 mg 00 (two) Medical tablet times Branch daily with meals. methylPREDN 2020-0 Yes [id number] Take by Univers ISolone 4-13 mouth ity of (MEDROL, 00:00: SEE-INSTRU [place] HERMAN,) 4 mg 00 CTIONS. Medica l tablets follow Branch package directions topiramate 2019-0 Yes topiramate U nivers 100 mg 3-04 100 mg ity of tablet 15:41: tablet [place] 01 Take 1 Medical tablet Branch every day by oral route in the morning for 28 days. topiramate 2019-0 Yes topiramate U nivers 100 mg 3-04 [...] route as needed for 30 days. HYDROcodone 2019- Yes 1{tbl} Take 1 Un gita -acetaminop [...] route as needed for 30 days. IBUPROFEN 2016- Yes 400mg Take 1 Unive rs 400 mg 3-17 tablet by ity of tablet 00:00: mouth [place] 00 every 6 Medical (six) Branch hours as needed for Pain (scale 1-3). IBUPROFEN 2017-0 Yes 400mg Take 1 Unive rs 400 mg 3-17 tablet by ity of tablet 00:00: mouth [place] 00 every 6 Medical (six) Branch hours as needed for Pain (scale 1-3). IBUPROFEN 2017-0 Yes 400mg Take 1 Unive rs 400 mg 3-17 tablet by ity of tablet 00:00: mouth [place] 00 every 6 Medical (six) Branch hours as needed for Pain (scale 1-3). IBUPROFEN 2017-0 Yes 400mg Take 1 Unive rs 400 mg 3-17 tablet by ity of tablet 00:00: mouth [place] 00 every 6 Medical (six) Branch hours as needed for Pain (scale 1-3). IBUPROFEN 2017-0 Yes 400mg Take 1 Unive rs 400 mg 3-17 tablet by ity of tablet 00:00: mouth [place] 00 every 6 Medical (six) Branch hours as needed for Pain (scale 1-3). IBUPROFEN 2017-0 Yes 400mg Take 1 Unive rs 400 mg 3-17 tablet by ity of tablet 00:00: mouth [place] 00 every 6 Medical (six) Branch hours as needed for Pain (scale 1-3). omeprazole 2015- Yes 40mg Take 1 Unive rs (PRILOSEC) [...] mouth [place] capsule 00 daily. Medical Branch Vraylar 6 Vraylar 6 No 1{capsu QD Vraylar 6 MG MG le} MG Imitrex Imitrex No Imitrex Ambien 10 Ambien 10 No 1{table QD Ambien 10 MG MG t_at_be MG dtime_a s_neede d} HYDROcodone HYDROcodone No HYDROcodon -Acetaminop -Acetaminop e-Acetamin hen hen ophen Promethazin Promethazin No 1{suppo Promethazi e HCl 12.5 e HCl 12.5 sitory_ ne HCl MG MG as_need 12.5 MG ed} tiZANidine tiZANidine No 1{table TID tiZANidine HCl 4 MG HCl 4 MG t_as_ne HCl 4 MG eded} Vraylar 6 Vraylar 6 No 1{capsu QD Vraylar 6 MG MG le} MG HYDROcodone HYDROcodone No HYDROcodon -Acetaminop -Acetaminop e-Acetamin hen hen ophen Vraylar 6 Vraylar 6 No 1{capsu QD Vraylar 6 MG MG le} MG Imitrex Imitrex No Imitrex tiZANidine tiZANidine No 1{table TID tiZANidine HCl 4 MG HCl 4 MG t_as_ne HCl 4 MG eded} Ambien 10 Ambien 10 No 1{table QD Ambien 10 MG MG t_at_be MG dtime_a s_neede d} Promethazin Promethazin No 1{suppo Promethazi e HCl 12.5 e HCl 12.5 sitory_ ne HCl MG MG as_need 12.5 MG ed} Ambien 10 Ambien 10 No 1{table QD Ambien 10 MG MG t_at_be MG dtime_a s_neede d} Imitrex Imitrex No Imitrex Promethazin Promethazin No 1{suppo Promethazi e HCl 12.5 e HCl 12.5 sitory_ ne HCl MG MG as_need 12.5 MG ed} tiZANidine tiZANidine No 1{table TID tiZANidine HCl 4 MG HCl 4 MG t_as_ne HCl 4 MG eded} Imuran 50 Imuran 50 No Imuran 50 MG MG MG Plaquenil Plaquenil No Plaquenil 200 MG 200 MG 200 MG Vraylar 6 Vraylar 6 No 1{capsu QD Vraylar 6 MG MG le} MG HYDROcodone HYDROcodone No HYDROcodon -Acetaminop -Acetaminop e-Acetamin hen hen ophen Ambien 10 Ambien 10 No 1{table QD Ambien 10 MG MG t_at_be MG dtime_a s_neede d} Imitrex Imitrex No Imitrex Promethazin Promethazin No 1{suppo Promethazi e HCl 12.5 e HCl 12.5 sitory_ ne HCl MG MG as_need 12.5 MG ed} tiZANidine tiZANidine No 1{table TID tiZANidine HCl 4 MG HCl 4 MG t_as_ne HCl 4 MG eded} Imuran 50 Imuran 50 No Imuran 50 MG MG MG Plaquenil Plaquenil No Plaquenil 200 MG 200 MG 200 MG Vraylar 6 Vraylar 6 No 1{capsu QD Vraylar 6 MG MG le} MG HYDROcodone HYDROcodone No HYDROcodon -Acetaminop -Acetaminop e-Acetamin hen hen ophen Ambien 10 Ambien 10 No 1{table QD Ambien 10 MG MG t_at_be MG dtime_a s_neede d} Imitrex Imitrex No Imitrex Promethazin Promethazin No 1{suppo Promethazi e HCl 12.5 e HCl 12.5 sitory_ ne HCl MG MG as_need 12.5 MG ed} tiZANidine tiZANidine No 1{table TID tiZANidine HCl 4 MG HCl 4 MG t_as_ne HCl 4 MG eded} Imuran 50 Imuran 50 No Imuran 50 MG MG MG Plaquenil Plaquenil No Plaquenil 200 MG 200 MG 200 MG Vraylar 6 Vraylar 6 No 1{capsu QD Vraylar 6 MG MG le} MG HYDROcodone HYDROcodone No HYDROcodon -Acetaminop -Acetaminop e-Acetamin hen [facility] ophen Ambien 10 Ambien 10 No 1{table QD Ambien 10 MG MG t_at_be MG dtime_a s_neede d} Imitrex Imitrex No Imitrex Promethazin Promethazin No 1{suppo Promethazi e HCl 12.5 e HCl 12.5 sitory_ ne HCl MG MG as_need 12.5 MG ed} tiZANidine tiZANidine No 1{table TID tiZANidine HCl 4 MG HCl 4 MG t_as_ne HCl 4 MG eded} Imuran 50 Imuran 50 No Imuran 50 MG MG MG Plaquenil Plaquenil No Plaquenil 200 MG 200 MG 200 MG Vraylar 6 Vraylar 6 No 1{capsu QD Vraylar 6 MG MG le} MG HYDROcodone HYDROcodone No HYDROcodon -Acetaminop -Acetaminop e-Acetamin hen [facility] ophen Vraylar 6 Vraylar 6 No 1{capsu QD Vraylar 6 MG MG le} MG Imitrex Imitrex No Imitrex Promethazin Promethazin No 1{suppo Promethazi e HCl 12.5 e HCl 12.5 sitory_ ne HCl MG MG as_need 12.5 MG ed} tiZANidine tiZANidine No 1{table TID tiZANidine HCl 4 MG HCl 4 MG t_as_ne HCl 4 MG eded} Plaquenil Plaquenil No Plaquenil 200 MG 200 MG 200 MG Ambien 10 Ambien 10 No 1{table QD Ambien 10 MG MG t_at_be MG dtime_a s_neede d} Imuran 50 Imuran 50 No Imuran 50 MG MG MG HYDROcodone HYDROcodone No HYDROcodon -Acetaminop -Acetaminop e-Acetamin hen hen [place] HYDROcodone HYDROcodone No HYDROcodon -Acetaminop -Acetaminop e-Acetamin hen hen ophen Vraylar 6 Vraylar 6 No 1{capsu QD Vraylar 6 MG MG le} MG Imitrex Imitrex No Imitrex tiZANidine tiZANidine No 1{table TID tiZANidine HCl 4 MG HCl 4 MG t_as_ne HCl 4 MG eded} Promethazin Promethazin No 1{suppo Promethazi e HCl 12.5 e HCl 12.5 sitory_ ne HCl MG MG as_need 12.5 MG ed} Ambien 10 Ambien 10 No 1{table QD Ambien 10 MG MG t_at_be MG dtime_a s_neede d} HYDROcodone HYDROcodone No HYDROcodon -Acetaminop -Acetaminop e-Acetamin hen hen ophen Imitrex Imitrex No Imitrex tiZANidine tiZANidine No 1{table TID tiZANidine HCl 4 MG HCl 4 MG t_as_ne HCl 4 MG eded} Vraylar 6 Vraylar 6 No 1{capsu QD Vraylar 6 MG MG le} MG Ambien 10 Ambien 10 No 1{table QD Ambien 10 MG MG t_at_be MG dtime_a s_neede d} HYDROcodone HYDROcodone No HYDROcodon -Acetaminop -Acetaminop e-Acetamin hen hen [place]hen Ambien 10 Ambien 10 No 1{table QD Ambien 10 MG MG t_at_be MG dtime_a s_neede d} Imitrex Imitrex No Imitrex tiZANidine tiZANidine No 1{table TID tiZANidine HCl 4 MG HCl 4 MG t_as_ne HCl 4 MG eded} Promethazin Promethazin 2020- No 1{suppo Promethazi e HCl 12.5 e HCl 12.5 11-20 sitory_ ne HCl MG MG 00:00 as_need 12.5 MG :00 ed} Immunizations Ordered Filled Immunization Date Status Comments [facility] Immunization Name Name Adacel (Tdap) Adacel (Tdap) 2020-08-25 Completed Common S pirit - 15:49:00 [facility] Adacel (Tdap) Adacel (Tdap) 2020-08-25 Completed Common S pirit - 15:49:00 [facility] Adacel (Tdap) Adacel (Tdap) 2020-08-25 Completed Common S pirit - 15:49:00 [facility] Adacel (Tdap) Adacel (Tdap) 2020-08-25 Completed Common S pirit - 15:49:00 [facility] Adacel (Tdap) Adacel (Tdap) 2020-08-25 Completed Common S pirit - 15:49:00 [facility] Adacel (Tdap) Adacel (Tdap) 2020-08-25 Completed Common S pirit - 15:49:00 [facility] Adacel (Tdap) Adacel (Tdap) 2020-08-25 Completed Common S pirit - 15:49:00 [facility] Adacel (Tdap) Adacel (Tdap) 2020-08-25 Completed Common S pirit - 15:49:00 [facility] Adacel (Tdap) Adacel (Tdap) 2020-08-25 Completed Common S pirit - 15:49:00 [facility] Adacel (Tdap) Adacel (Tdap) 2020-08-25 Completed Common S pirit - 15:49:00 [facility] TDAP 2019-01-26 Completed University of 00:00:00 [facility] [place] [facility] TDAP 2019-01-26 Completed University 00:00:00 [facility] [place] [facility] TDAP 2019-01-26 Completed University of 00:00:00 [facility] [place] [facility] TDAP 2019-01-26 Completed University of 00:00:00 [facility] [place] [facility] TDAP 2019-01-26 Completed University of 00:00:00 [facility] [place] [facility] TDAP 2019-01-26 Completed University of 00:00:00 [facility] [place] [facility] Vital Signs Vital Name Observation Time Observation Value Comments Source height 2022-07-04 08:20:00 61 [in_i] [facility] weight 2022-07-04 08:20:00 191.5 [lb_av] [facility] temperature 2022-07-04 08:20:00 97.2 [degF] [facility] bmi 2022-07-04 08:20:00 36.18 kg/m2 [facility] oximetry 2022-07-04 08:20:00 99 % [facility] respiratory rate 2022-07-04 08:20:00 18 /min Comm on [facility] blood pressure 2022-07-04 08:20:00 115 mm[Hg] [facility] systolic [facility] blood pressure 2022-07-04 08:20:00 71 mm[Hg] [facility] diastolic [facility] Systolic blood 2022-05-30 16:35:00 133 mm[Hg] Univer sity of [facility] Diastolic blood 2022-05-30 16:35:00 89 mm[Hg] Unive rsity of [facility] Heart rate 2022-05-30 16:35:00 116 /min [facility] Body temperature 2022-05-30 16:35:00 36.89 [facility] Respiratory rate 2022-05-30 16:35:00 18 /min [facility] Body height 2022-05-30 16:35:00 152.4 cm [facility] Body weight 2022-05-30 16:35:00 88.99 kg [facility] BMI 2022-05-30 16:35:00 38.32 kg/m2 [facility] Oxygen saturation in 2022-05-30 16:35:00 100 /min [facility] blood by [facility] [place] Pulse oximetry Branch height 2022-03-14 13:50:00 61 [in_i] [facility] weight 2022-03-14 13:50:00 189 [lb_av] [facility] temperature 2022-03-14 13:50:00 97.6 [degF] Common [facility] bmi 2022-03-14 13:50:00 35.71 kg/m2 [facility] oximetry 2022-03-14 13:50:00 100 % [facility] respiratory rate 2022-03-14 13:50:00 16 /min Comm on [facility] blood pressure 2022-03-14 13:50:00 132 mm[Hg] Common [facility] - systolic [facility] blood pressure 2022-03-14 13:50:00 73 mm[Hg] Common [facility] - diastolic [facility] height 2022-03-14 13:40:00 61 [in_i] [facility] weight 2022-03-14 13:40:00 189 [lb_av] [facility] temperature 2022-03-14 13:40:00 97.6 [degF] [facility] bmi 2022-03-14 13:40:00 35.71 kg/m2 [facility] oximetry 2022-03-14 13:40:00 100 % [facility] respiratory rate 2022-03-14 13:40:00 16 /min Comm on [facility] blood pressure 2022-03-14 13:40:00 132 mm[Hg] Common [facility] - systolic [facility] blood pressure 2022-03-14 13:40:00 73 mm[Hg] Common [facility] diastolic [facility] Systolic blood 2022-01-16 20:40:00 135 mm[Hg] Univer sity of pressure [facility] [place] [facility] Diastolic blood 2022-01-16 20:40:00 87 mm[Hg] Unive rsity of pressure [facility] [place] [facility] Heart rate 2022-01-16 20:40:00 98 /min [facility] Body temperature 2022-01-16 20:40:00 36.5 [place] Univ ersity of [facility] [place] [facility] Respiratory rate 2022-01-16 20:40:00 16 /min Univ ersity of [facility] [place] [facility] Body height 2022-01-16 20:40:00 152.4 cm [facility] Body weight 2022-01-16 20:40:00 83.779 kg [facility] BMI 2022-01-16 20:40:00 36.07 kg/m2 Universi ty of [facility] [place] [facility] Oxygen saturation in 2022-01-16 20:40:00 99 /min University of Arterial blood by [facility] [place] Pulse oximetry Branch Systolic blood 2022-01-05 15:50:00 158 mm[Hg] Univer sity of pressure [facility] [place] [facility] Diastolic blood 2022-01-05 15:50:00 89 mm[Hg] Unive rsity of [facility] Heart rate 2022-01-05 15:50:00 101 /min [facility] Body temperature 2022-01-05 15:50:00 37.06 [facility] Respiratory rate 2022-01-05 15:50:00 18 /min [facility] [facility] Body height 2022-01-05 15:50:00 154.9 cm [facility] Body weight 2022-01-05 15:50:00 79.379 kg [facility] BMI 2022-01-05 15:50:00 33.07 kg/m2 [facility] Oxygen saturation in 2022-01-05 15:50:00 100 /min [facility] of Arterial blood by [facility] Pulse oximetry Branch height 2021-12-13 16:20:00 61 [in_i] Common [facility] weight 2021-12-13 16:20:00 170 [lb_av] Common [facility] temperature 2021-12-13 16:20:00 98.2 [degF] Common [facility] bmi 2021-12-13 16:20:00 32.12 kg/m2 [facility] blood pressure 2021-12-13 16:20:00 125 mm[Hg] [facility] - systolic [facility] blood pressure 2021-12-13 16:20:00 74 mm[Hg] [facility] - diastolic [facility] height 2021-09-06 16:30:00 61 [in_i] [facility] weight 2021-09-06 16:30:00 169 [lb_av] Common [facility] temperature 2021-09-06 16:30:00 97 [degF] Common [facility] bmi 2021-09-06 16:30:00 31.93 kg/m2 Common S [facility] - [facility] blood pressure 2021-09-06 16:30:00 128 mm[Hg] [facility] - systolic [facility] blood pressure 2021-09-06 16:30:00 72 mm[Hg] [facility] - diastolic [facility] height 2021-06-06 15:50:00 61 [in_i] Common [facility] weight 2021-06-06 15:50:00 170 [lb_av] Common [facility] temperature 2021-06-06 15:50:00 98 [degF] Common [facility] bmi 2021-06-06 15:50:00 32.12 kg/m2 Common [facility] blood pressure 2021-06-06 15:50:00 130 mm[Hg] [facility] - systolic [facility] blood pressure 2021-06-06 15:50:00 70 mm[Hg] [facility] - diastolic [facility] Systolic blood 2021-05-15 20:07:00 140 mm[Hg] Univer sity of pressure [facility] Diastolic blood 2021-05-15 20:07:00 90 mm[Hg] Unive rsity of pressure [facility] Heart rate 2021-05-15 20:07:00 105 /min [facility] Body height 2021-05-15 20:07:00 154.9 cm [facility] Body weight 2021-05-15 20:07:00 74.844 kg [facility] BMI 2021-05-15 20:07:00 31.18 kg/m2 [facility] Procedures Procedure Date / Time Performed Performing Clinician Otis quick ASSIGNMENT OF BENEFITS 2022-05-30 16:28:29 Doctor Unassigned, No [facility] Name [facility] Branch CT ABDOMEN PELVIS WO 2022-01-05 17:20:35 Gary Gonzalez [facility] CONTRAST [facility] XR KUB 2022-01-05 16:21:08 [facility] POCT TEST 2022-01-05 16:08:00 Gary Gonzalez [facility] LIPASE 2022-01-05 16:06:00 [facility] HEPATIC FUNCTION PANEL 2022-01-05 16:06:00 Gary Gonzalez [facility] ([id number]) [facility] (ALB,T.PRO,BILI T,BU/BC,ALT,AST,ALK PHOS) BASIC METABOLIC PANEL 2022-01-05 16:06:00 Gary Gonzalez [facility] (NA, K, CL, CO2, Medical Branch GLUCOSE, BUN, CREATININE, CA) CBC WITH DIFF 2022-01-05 16:06:00 Carlos [facility] URINALYSIS 2022-01-05 16:06:00 [facility] CONSENT/REFUSAL FOR 2022-01-05 15:43:39 Doctor Unassigned, No Un [facility] DIAGNOSIS AND Name Medical Branch TREATMENT Encounters Start End Encounter Admission Attending Care Care Encounter Source Date/Time Date/Time Type Type Clinicians Facility Department ID 2022-07-02 Outpatient Higgins, STLMLC [facility] [id number] Common 10:13:01 Prakash [id number] [facility] 2022-06-12 Outpatient Higgins, STLMLC STLC [id number] Common 09:17:00 Prakash [id number] [facility] 2021-09-20 Outpatient Higgins, STLMLC [facility] [id number] Common 14:00:52 Prakash [id number] [facility] 2021-09-20 Outpatient Higgins, STLMLC [facility] [id number] Common 13:53:20 Prakash [id number] [facility] 2021-09-20 Outpatient Higgins, [facility] [id number] Common 13:19:51 Prakash [id number] [facility] 2021-09-20 Outpatient Higgins, STLC [facility] [id number] Common 13:14:31 Prakash [id number] [facility] 2021-09-20 Outpatient Higgins, [facility] [id number] Common 12:50:04 Prakash [id number] [facility] 2021-09-20 Outpatient Higgins, [facility] [id number] Common 12:48:36 Prakash [id number] [facility] 2021-06-26 Emergency [facility] [id number] Univers 17:19:59 ity of [facility] 2021-06-26 Emergency [facility] [id number] Univers 08:32:13 ity of [facility] 2021-06-26 Emergency [facility] [id number] Univers 02:13:21 ity of [facility] 2021-06-25 Emergency [facility] [id number] Univers 21:06:07 ity of [facility] 2021-06-25 Emergency [facility] [id number] Univers 12:29:01 ity of [facility] 2021-06-25 Emergency [facility] [id number] Univers 01:51:21 [facility] 2022-07-04 2022-07-[address] [facility] [id number] Co mmon 00:00:00 00:00:00 VISIT [facility] LEVEL 4 [facility] 2022-05-30 2022-05-30 Sania Valencia [facility] [id number] Univers 13:00:00 13:20:00 Care [facility] [id number] [facility] [place] [id number] Eddie as ROMEO?BLEA [id number] [address] MEDICAL OFFICE BUILDING 2022-05-30 2022-05-30 Outpatient Chet YANCEY [facility] [id number] Univers 13:00:00 13:00:00 SANIA ity of [facility] 2022-05-30 2022-05-30 Orders Doctor MAE [id number] Univers 00:00:00 00:00:00 Only Unassigned, ERICA [id number] ity of [facility] [id number] Eddie as [phone] [address] 2022-05-03 2022-05-03 (TEL) STLMLC STLMLC [id number] Co mmon 00:00:00 00:00:00 Spirit - [facility] 2022-03-14 2022-03-14 OFFICE STLMLC STLMLC [id number] Co mmon 00:00:00 00:00:00 VISIT Spirit ESTAB PT - CHI LEVEL 4 [facility] 2022-03-14 2022-03-14 (TEL) STLMLC STLMLC [id number] Co mmon 00:00:00 00:00:00 Spirit - [facility] 2022-03-14 2022-03-14 SUB ANNUAL STLMLC STLMLC [id number] Common 00:00:00 00:00:00 MCR Spirit WELLNESS - CHI VISIT [facility] 2022-01-16 2022-01-16 Outpatient R VEL [facility] [id number] Univers 16:00:00 16:03:05 YANNICK [facility] 2022-01-16 2022-01-16 Urgent Yannick Vásquez [facility] [id number] Univers 16:00:00 16:03:05 [facility] [id number] ity of [place] [id number] Eddie as ROMEO?BLEA [id number] De elijah [address] MEDICAL OFFICE BUILDING 2022-01-05 2022-01-05 Emergency X CARLOS [facility] ERT [id number] Univers 10:54:00 13:07:00 [facility] 2022-01-05 2022-01-05 [facility] [id number] Univers 10:54:00 13:07:00 Gary JACKSON [id number] i ty [facility] 4.2.7.2.686 [place] [facility] [id number] [place] [address] Branch 2021-12-28 2021-12-28 Outpatient R VEL [facility] [id number] Univers 13:20:00 13:20:00 [facility]ICK [facility] 2021-12-13 2021-12-13 OFFICE STLMLC STLMLC [id number] Co mmon 00:00:00 00:00:00 VISIT Spirit ESTAB PT - CHI LEVEL 4 [facility] 2021-09-06 2021-09-06 OFFICE STLMLC STLMLC [id number] Co mmon 00:00:00 00:00:00 VISIT EST Spir it PT LEVEL 3 - [facility] 2021-08-14 2021-08-14 Laboratory Only, Ang Db Test [facility] 1.2.8 40.114 [id number] Univers 15:45:00 16:00:00 Only Bill [facility] [id number] ity [facility] [id number] Eddie as ROMEO?BLEA [id number] [address] MEDICAL OFFICE BUILDING 2021-08-14 2021-08-14 Outpatient Chet PEREZ [facility] [id number] Univers 15:45:00 15:54:14 SANTA ity o f [facility] 2021-08-01 2021-08-01 (TEL) STLMLC STLMLC [id number] Co mmon 00:00:00 00:00:00 [facility] 2021-06-15 2021-06-15 (TEL) STLMLC STLMLC [id number] Co mmon 00:00:00 00:00:00 [facility] 2021-06-12 2021-06-12 Outpatient Chet HIDALGO [facility] [id number] Univers 13:30:00 13:30:00 [facility] 2021-06-06 2021-06-06 OFFICE STLMLC STLMLC [id number] Co mmon 00:00:00 00:00:00 VISIT Spirit ESTAB PT - CHI LEVEL 4 [facility] 2021-06-05 2021-06-05 [facility] [id number] Univers 13:30:00 13:30:00 [facility] 2021-05-15 2021-05-15 Office [facility] 1.2.840.114 [id number] Univers 15:01:19 15:16:19 Visit Jenna Dowd [facility] [id number] it y of [place] [id number] Eddie as Romeo?Blea [phone] De elijah sen 198 [facility] Office [facility] [address] 2021-05-15 2021-05-15 Outpatient [facility] [id number] Univers 15:00:00 15:00:00 [facility] 2021-05-10 2021-05-10 Outpatient [facility] [id number] Univers 13:00:00 13:00:00 [facility] 2021-04-19 2021-04-19 Hospital [facility] 1.2.840.114 [id number] Univers 15:25:00 23:59:00 Encounter Jenna Dowd [facility] [id number] ity of [place] [id number] Eddie as Romeo?Blea [phone] De elijah fischer 809 [facility] Office [facility] [address] 2021-04-19 2021-04-19 Outpatient Chet [facility] [id number] Univers 15:25:00 23:59:00 [facility] 2021-04-19 2021-04-19 Office [facility] 1.2.840.114 [id number] Univers 15:16:01 17:12:29 Visit [facility] [id number] ity of [place] [id number] Eddie as Romeo?Blea [phone] De dicelisa sen 198 [facility] Office [facility] [address] 2021-02-21 2021-02-21 Outpatient STLMLC STLMLC [id number] Common 00:00:00 00:00:00 Spirit [facility] 2021-02-21 2021-02-21 Outpatient STLMLC STLMLC [id number] Common 00:00:00 00:00:00 [facility] 2021-02-08 2021-02-08 Outpatient STLMLC STLMLC [id number] Common 00:00:00 00:00:00 [facility] 2021-02-06 2021-02-06 Outpatient STLMLC STLMLC [id number] Common 00:00:00 00:00:00 [facility] 2021-01-20 2021-01-20 Outpatient Che[facility] [id number] Univers 08:30:00 08:30:00 JENNA [facility] 2021-01-02 2021-01-02 Outpatient STLMLC STLMLC [id number] Common 00:00:00 00:00:00 [facility] 2020-12-21 2020-12-21 Outpatient Chet [facility] [id number] Univers 13:30:00 13:30:00 [facility] 2020-12-12 2020-12-12 Outpatient STLMLC STLMLC [id number] Common 00:00:00 00:00:00 [facility] 2020-12-12 2020-12-12 Outpatient STLMLC STLMLC [id number] Common 00:00:00 00:00:00 [facility] 2020-12-06 2020-12-06 Emergency [facility] [id number] 09:33:00 10:58:00 Elena [place] [id number] [place] 4.2.7.2.686 [place] [id number] 2020-11-29 2020-11-29 Outpatient STLMLC STLMLC [id number] Common 00:00:00 00:00:00 [facility] 2020-11-10 2020-11-10 [facility] 1.2.840.114 [id number] 00:00:00 00:00:00 Outreach Willy PERKINS [id number] [facility] [id number] PAVILLION [id number] 2020-10-22 2020-10-22 Emergency Dionne Sierra [facility] 1.2.840 .114 [id number] 13:44:00 16:22:00 Tori [place] 350.1.13.1 0 [place] 4.2.7.2.686 [place] [id number] 2020-01-07 2020-01-07 Telephone Bill [facility] 1.2.840.114 [id number] 00:00:00 00:00:00 [facility] [id number] [place] 4.2.7.2.686 Professio [id number] [place] [address] [address] 2019-11-03 2019-11-03 [facility]phone [facility] [id number] 00:00:00 00:00:00 Kaylah [facility] [id number] [place] 4.2.7.2.686 Professio [id number] [place] [address] [address] 2019-11-02 2019-11-02 Outpatient R RADIOLOGY [facility] [id number] Univers 15:39:02 23:59:00 ity of [facility] 2019-11-02 2019-11-02 Hospital Radiology [facility] 1.2.840.114 [id number] 15:30:00 23:59:00 Encounter [place] 350.1.13.10 [place] 4.2.7.2.686 [place] [id number] 2019-11-02 2019-11-02 Orders Doctor MAE 1.2.840.114 [id number] 00:00:00 00:00:00 Only Unassigned, ERICA 350.1.13.10 [place] [address]686 [id number] 2019-10-28 2019-10-28 [facility] 1.2.840.114 [id number] 15:11:42 15:59:11 Visit Kaylah [facility] 350.1.13.10 [place] 4.2.7.2.686 Professio [id number] nal [facility] Office [address] 2019-10-28 2019-10-28 Outpatient R NEW, [facility] [id number] Univers 15:20:00 15:20:00 [facility]LAH [facility] 2019-10-26 2019-10-26 Emergency X SINGER [facility] ERT [id number] Univers 16:50:10 19:30:00 ELENA [facility] 2019-05-18 2019-05-18 Emergency X HANS [facility] ERT [id number] Univers 12:49:44 15:02:00 ANDREW [facility] Results Test Description Test Time Test Comments Results Result Comments Source BASIC METABOLIC PANEL (NA, K, CL, CO2, GLUCOSE, BUN, 2021-12 16:31:47 CREATININE, CA) Test Item Value Reference Range Interpretation Comme nts NA (test code = 9376223755) 142 mmol/L 135-145 K (test code = 1454129102) 4.2 mmol/L 3.5-5.0 CL (test code = 2661259424) 109 mmol/L 98-108 H CO2 TOTAL (test code = 1530344602) 22 mmol/L 23-31 L AGAP (test code = 2843415791) 2-16 BUN (test code = 6831265595) 12 mg/dL 7-23 GLUCOSE (test code = 1798864286) 89 mg/dL 70-110 CREATININE (test code = 0.75 mg/dL 0.50-1.04 4186153127) CALCIUM (test code = 5418034608) 8.9 mg/dL 8.6-10.6 eGFR (test code = 6705478749) mL/min/1.73m2 BRITTANY (test code = BRITTANY) Association [...] tests). Lab Interpretation (test code = Abnormal 79576-1) [facility] (ALB,T.PRO,BILI T,BU/BC,ALT,AST,ALK PHOS)2022-01-05 16:31:47 Test Item Value Reference Range Interpretation Comments TOTAL BILI (test code = 7707023088) 0.4 mg/dL 0.1-1.1 BILI UNCON (test code = 1900697129) 0.2 mg/dL 0.1-1.1 BILI CONJ (test code = 0224149661) 0.0 mg/dL 0.0-0.3 T PROTEIN (test code = 4659887591) 7.1 g/dL 6.3-8.2 ALBUMIN (test code = 5161886394) 4.4 g/dL 3.5-5.0 ALK PHOS (test code = 0271999694) 68 U/L 34-122 ALTv (test code = 1742-6) 21 U/L 5-35 AST(SGOT) (test code = 3680013898) 22 U/L 13-40 Lab Interpretation (test code = Normal 93826-8) [facility]2022-[facility]-13 16:31:47 Test Item Value Reference Range Interpretation Comments LIPASE (test code = 5610999767) 123 U/L 0-220 Lab Interpretation (test code = Normal 78659-5) [facility] [id number] 16:18:07 Test Item Value Reference Range Interpretation [...] RDW-SD (test code = 41.6 fL 39.0-49.9 07956-0) RDW-CV (test code = 12.6 % 12.0-15.5 788-0) PLT (test code = See_Comment [Automated 777-3) message] The sy stem which generated this result transmitted reference range : 166 - 358 10*3/ ?L. The reference r tae was not used to interpret this result as normal/abnormal . MPV (test code = 10.4 fL 9.5-12.9 01295-0) NRBC/100 WBC (test See_Comment [Automat ed code = 5577350696) message] The system which generated this result transmitted reference range : 0.0 - 10.0 /100 WBCs. The refer ence range was not u sed to interpret th is result as normal/abnormal . NRBC x10^3 (test code <0.01 See_Comment [Auto mated = 0057259734) message] The s ystem which generated this result transmitted reference range : 10*3/?L. The reference range was not used to interpret this result as normal/abnormal . GRAN MAT (NEUT) % 53.5 % (test code = 770-8) IMM GRAN % (test code 0.60 % = 7492384781) LYMPH % (test code = 28.5 % 736-9) MONO % (test code = 8.6 % 5905-5) EOS % (test code = 7.7 % 713-8) BASO % (test code = 1.1 % 706-2) GRAN MAT x10^3(ANC) 3.35 10*3/uL 1.88-7.09 (test code = 3845657732) IMM GRAN x10^3 (test 0.04 10*3/uL 0.00-0.06 code = 8143813955) LYMPH x10^3 (test code 1.79 10*3/uL 1.32-3.29 = 731-0) MONO x10^3 (test code 0.54 10*3/uL 0.33-0.92 = 742-7) EOS x10^3 (test code = 0.48 10*3/uL 0.03-0.39 H 711-2) BASO x10^3 (test code 0.07 10*3/uL 0.01-0.07 = 704-7) Lab Interpretation Abnormal (test code = 73616-6) [facility] [id number] 16:08:00 Test Item Value Reference Range Interpretation Comments POCT PREG (test code = 1605) Negative On board controls acceptable with Present C Line (test code = 3574) POCT PREG LOT # (test code = 3575) [id number] POCT PREG TEST DATE (test 05/25/2023 code = 3576) Lab Interpretation (test code = Normal 92784-7) [facility]"
[2022-07-29] MEDS ORDERED: PROMETHAZINE INJ 25 MG/ML AMP ONE (17:49)
[2022-07-29] MEDS ORDERED: NA CHLORIDE 0.9% 1,000 ML ONE (17:50)
[2022-07-29] MEDS ORDERED: MORPHINE 2 MG/ML SYR ONE (17:50)
[2022-07-29] MEDS ORDERED: FAMOTIDINE 20 MG/2 ML VIAL IV ONE (17:50)
[2022-07-29] MEDS ORDERED: NA CHLORIDE 0.9% 500 ML ONE (17:50)
[2022-07-29] MEDS ORDERED: ASPIRIN 81 MG CHEWABLE TABLET ONE (18:03)
--- NOTE | 2022-07-29 18:04 | ER ---
Nurse's Notes [facility] Name: Joy Strauss Age: 47 yrs Sex: Female : 1975 Arrival Date: 07/29/2022 Time: 17:13 Bed 15 Private MD: Prakash Higgins Diagnosis: Chest pain, unspecified Presentation: 07/29 17:16 Chief complaint: Patient states: Chest pain - in between shoulder blades, weakness, ld1 heart feels funny, feels like something is sitting on my chest. Coronavirus screen: At this time, the client does not indicate any symptoms associated with coronavirus-19. Ebola Screen: No symptoms or risks identified at this time. Initial Sepsis Screen: Does the patient meet any 2 criteria? No. Patient's initial sepsis screen is negative. Does the patient have a suspected source of infection? No. Patient's initial sepsis screen is negative. Risk Assessment: Do you want to hurt yourself or someone else? Patient reports no desire to harm self or others. Onset of symptoms was July 29, 2022 at 17:17. 17:16 Method Of Arrival: Ambulatory ld1 17:16 Acuity: FÉLIX 3 ld1 Triage Assessment: 17:17 General: Appears in no apparent distress. comfortable, Behavior is calm, cooperative, ld1 appropriate for age. Pain: Complains of pain in thoracic area and abdomen Pain does not radiate. Pain currently is 10 out of 10 on a pain scale. Quality of pain is described as throbbing. EENT: No signs and/or symptoms were reported regarding the EENT system. Neuro: Level of Consciousness is awake, alert, obeys commands, Oriented to person, place, time, situation. Cardiovascular: Reports chest pain, Capillary refill < 3 seconds Patient's skin is warm and dry. Rhythm is sinus rhythm Chest pain is described as mild. Respiratory: Airway is patent Respiratory effort is even, unlabored, Respiratory pattern is regular. GI: Abdomen is round non-distended. : No signs and/or symptoms were reported regarding the genitourinary system. Derm: No signs and/or symptoms reported regarding the dermatologic system. Musculoskeletal: No signs and/or symptoms reported regarding the musculoskeletal system. Historical: - Allergies: 17:17 NKA; ld1 - PMHx: 17:17 Asthma; Back pain; Chronic pain; Degenerative disc disease; herniated discs; Lupus; RA; ld1 scoliosis; - PSHx: 17:17 Cholecystectomy; ld1 - Immunization history:: Adult Immunizations not immunized, Client reports receiving the 2nd dose of the Covid vaccine. - Social history:: Smoking status: Patient denies any tobacco usage or history of. Patient/guardian denies using alcohol. - Family history:: not pertinent. Screenin:30 Abuse screen: Denies threats or abuse. Denies injuries from another. Nutritional eh3 screening: No deficits noted. Tuberculosis screening: No symptoms or risk factors identified. Fall Risk None identified. Assessment: 17:30 General: Appears in no apparent distress. uncomfortable, Behavior is cooperative, eh3 appropriate for age, anxious. Pain: Complains of pain in right scapular area and left scapular area and back Pain radiates to thoracic area Pain currently is 6 out of 10 on a pain scale. Quality of pain is described as sharp, Pain began 30 min ago. Is continuous. Neuro: Level of Consciousness is awake, alert, obeys commands, Oriented to person, place, time, situation. Cardiovascular: Capillary refill < 3 seconds Patient's skin is warm and dry. Respiratory: Airway is patent Respiratory effort is even, unlabored, Respiratory pattern is regular, symmetrical. GI: No signs and/or symptoms were reported involving the gastrointestinal system. Abdomen is round non-distended. : No signs and/or symptoms were reported regarding the genitourinary system. EENT: No signs and/or symptoms were reported regarding the EENT system. Derm: No signs and/or symptoms reported regarding the dermatologic system. Musculoskeletal: No signs and/or symptoms reported regarding the musculoskeletal system. Circulation, motion, and sensation intact. Range of motion: intact in all extremities. 18:30 Reassessment: Patient appears in no apparent distress at this time. Patient and/or eh3 family updated on plan of care and expected duration. Pain level reassessed. Patient is alert, oriented x 3, equal unlabored respirations, skin warm/dry/pink. 19:30 Reassessment: Patient appears in no apparent distress at this time. Patient and/or eh3 family updated on plan of care and expected duration. Pain level reassessed. Patient is alert, oriented x 3, equal unlabored respirations, skin warm/dry/pink. Vital Signs: 17:16 BP 143 / 85; Pulse 101; Resp 18; Temp 98.1(TE); Pulse Ox 99% on R/A; Weight 88.45 kg; ld1 Height 5 ft. 0 in. (152.40 cm); Pain 7/10; 17:30 BP 134 / 89; Pulse 88; Resp 16; Pulse Ox 99% on R/A; eh3 18:30 BP 132 / 91; Pulse 78; Resp 16; Pulse Ox 99% on R/A; eh3 19:30 BP 146 / 104; Pulse 98; Resp 17; Pulse Ox 98% on R/A; eh3 17:16 Body Mass Index 38.08 (88.45 kg, 152.40 cm) ld1 Vitals: 17:30 Cardiac Rhythm Assessment Sinus rhythm. 3 ED Course: 17:13 Patient arrived in ED. mr 17:13 Prakash Higgins DO is Private Physician. mr 17:17 Triage completed. ld1 17:17 Arm band placed on right wrist. ld1 17:18 Norberto Aguirre MD is Attending Physician. melinda 17:30 Patient has correct armband on for positive identification. Bed in low position. Call 3 light in reach. Side rails up X2. Client placed on continuous cardiac and pulse oximetry monitoring. NIBP monitoring applied. Door closed. Noise minimized. Warm blanket given. 17:30 Patient maintains SpO2 saturation greater than 95% on room air. eh3 17:44 Krysta Long, RN is Primary Nurse. eh3 17:58 Shaheed Gutierres is Hospitalizing Provider. melinda 18:00 Inserted saline lock: 20 gauge in right forearm, using aseptic technique. Blood 3 collected. 18:37 XRAY Chest (1 view) In Process Unspecified. EDMS 19:36 CT Aorta for Dissection In Process Unspecified. EDMS 20:30 No provider procedures requiring assistance completed. Patient admitted, IV remains in eh3 place. 23:11 Odalis Mejia MD is Hospitalizing Provider. sb4 Administered Medications: 18:10 Drug: NS 0.9% 1000 ml Route: IV; Rate: 125 ml/hr; Site: right forearm; eh3 18:10 Drug: NS 0.9% 500 ml Route: IV; Rate: bolus; Site: right forearm; eh3 19:07 Follow up: IV Status: Completed infusion; IV Intake: 500ml eh3 18:10 Drug: Pepcid (famotidine) 20 mg Route: IVP; Site: right forearm; eh3 18:55 Follow up: Response: No adverse reaction eh3 18:10 Drug: morphine 2 mg Route: IVP; Infused Over: 4 mins; Site: right forearm; eh3 18:55 Follow up: Response: Pain is decreased eh3 18:10 Drug: Phenergan (promethazine) 12.5 mg Route: IVP; Site: right forearm; eh3 18:55 Follow up: Response: No adverse reaction eh3 18:10 Drug: Aspirin Chewable Tablet 81 mg Route: PO; eh3 18:55 Follow up: Response: No adverse reaction eh3 19:25 Drug: Ativan (LORazepam) 1 mg Route: IVP; Site: right antecubital; eh3 20:23 Follow up: Response: Anxiety decreased eh3 Medication: 07/30 00:01 VIS not applicable for this client. eh3 Intake: 07/29 19:07 IV: 500ml; Total: 500ml. eh3 Outcome: 18:03 Decision to Hospitalize by Provider. melinda 20:30 Admitted to ER Hold. Please see [facility] for further documentation. eh3 20:30 Condition: stable eh3 20:30 Instructed on the need for admit. 12 14:29 Patient left the ED. ko1 Signatures: Dispatcher [employer] Norberto Ellington MD MD cha Rivera, Mary mr RaffaelereynaAntionette keane RN RN ld1 Krysta Long RN RN 3 Nicole Ladd RN RN ko1 Jamila Perez PA-C PAElvie sb4 Corrections: (The following items were deleted from the chart) 00:01 07/29 20:30 Reassessment: Patient appears in no apparent distress at this time. Patient eh3 and/or family updated on plan of care and expected duration. Pain level reassessed. Patient is alert, oriented x 3, equal unlabored respirations, skin warm/dry/pink. eh3
--- NOTE | 2022-07-29 18:04 | EDPHYS ---
Physician Documentation [facility] Name: Joy Strauss Age: 47 yrs Sex: Female : 1975 Arrival Date: 07/29/2022 Time: 17:13 Bed 15 Private MD: Ronaldo [facility] ED Physician Norberto Aguirre HPI: 07/29 17:34 This 47 yrs old Female presents to ER via Ambulatory with complaints of Chest melinda Pain, Back Pain, Palpitations. 17:34 The patient or guardian reports chest pain that is located primarily in the anterior melinda chest wall, bilaterally. Onset: this morning, today. The pain radiates to back. Associated signs and symptoms: Pertinent positives: shortness of breath. The chest pain is described as a pressure, squeezing. Duration: The patient or guardian reports multiple episodes, with no pattern. Modifying factors: The symptoms are alleviated by nothing. Severity of pain: At its worst the pain was mild moderate in the emergency department the pain is unchanged. The patient has not experienced similar symptoms in the past. Historical: - Allergies: 17:17 NKA; ld1 - PMHx: 17:17 Asthma; Back pain; Chronic pain; Degenerative disc disease; herniated discs; Lupus; RA; ld1 scoliosis; - PSHx: 17:17 Cholecystectomy; ld1 - Immunization history:: Adult Immunizations not immunized, Client reports receiving the 2nd dose of the Covid vaccine. - Social history:: Smoking status: Patient denies any tobacco usage or history of. Patient/guardian denies using alcohol. - Family history:: not pertinent. ROS: 17:34 Constitutional: Negative for fever, chills, and weight loss, Eyes: Negative for injury, melinda pain, redness, and discharge, ENT: Negative for injury, pain, and discharge, Neck: Negative for injury, pain, and swelling, Cardiovascular: Negative for chest pain, palpitations, and edema, Respiratory: Negative for shortness of breath, cough, wheezing, and pleuritic chest pain, Abdomen/GI: Negative for abdominal pain, nausea, vomiting, diarrhea, and constipation, : Negative for injury, bleeding, discharge, and swelling, MS/Extremity: Negative for injury and deformity, Skin: Negative for injury, rash, and discoloration, Neuro: Negative for headache, weakness, numbness, tingling, and seizure, Psych: Negative for depression, anxiety, suicide ideation, homicidal ideation, and hallucinations, Allergy/Immunology: Negative for hives, rash, and allergies, Endocrine: Negative for neck swelling, polydipsia, polyuria, polyphagia, and marked weight changes, Hematologic/Lymphatic: Negative for swollen nodes, abnormal bleeding, and unusual bruising. 17:34 Back: Positive for decreased range of motion, radiated pain, of the left scapular area, right scapular area and thoracic area. Exam: 17:34 Constitutional: This is a well developed, well nourished patient who is awake, alert, melinda and in no acute distress. Head/Face: Normocephalic, atraumatic. Eyes: Pupils equal round and reactive to light, extra-ocular motions intact. Lids and lashes normal. Conjunctiva and sclera are non-icteric and not injected. Cornea within normal limits. Periorbital areas with no swelling, redness, or edema. ENT: Nares patent. No nasal discharge, no septal abnormalities noted. Tympanic membranes are normal and external auditory canals are clear. Oropharynx with no redness, swelling, or masses, exudates, or evidence of obstruction, uvula midline. Mucous membranes moist. Neck: Trachea midline, no thyromegaly or masses palpated, and no cervical lymphadenopathy. Supple, full range of motion without nuchal rigidity, or vertebral point tenderness. No Meningismus. Chest/axilla: Normal chest wall appearance and motion. Nontender with no deformity. No lesions are appreciated. Cardiovascular: Regular rate and rhythm with a normal S1 and S2. No gallops, murmurs, or rubs. Normal PMI, no JVD. No pulse deficits. Respiratory: Lungs have equal breath sounds bilaterally, clear to auscultation and percussion. No rales, rhonchi or wheezes noted. No increased work of breathing, no retractions or nasal flaring. Abdomen/GI: Soft, non-tender, with normal bowel sounds. No distension or tympany. No guarding or rebound. No evidence of tenderness throughout. Back: No spinal tenderness. No costovertebral tenderness. Full range of motion. Skin: Warm, dry with normal turgor. Normal color with no rashes, no lesions, and no evidence of cellulitis. MS/ Extremity: Pulses equal, no cyanosis. Neurovascular intact. Full, normal range of motion. Neuro: Awake and alert, GCS 15, oriented to person, place, time, and situation. Cranial nerves II-XII grossly intact. Motor strength 5/5 in all extremities. Sensory grossly intact. Cerebellar exam normal. Normal gait. Psych: Awake, alert, with orientation to person, place and time. Behavior, mood, and affect are within normal limits. 17:34 ECG was reviewed by the Attending Physician. Vital Signs: 17:16 BP 143 / 85; Pulse 101; Resp 18; Temp 98.1(TE); Pulse Ox 99% on R/A; Weight 88.45 kg; ld1 Height 5 ft. 0 in. (152.40 cm); Pain 7/10; 17:30 BP 134 / 89; Pulse 88; Resp 16; Pulse Ox 99% on R/A; eh3 18:30 BP 132 / 91; Pulse 78; Resp 16; Pulse Ox 99% on R/A; eh3 19:30 BP 146 / 104; Pulse 98; Resp 17; Pulse Ox 98% on R/A; eh3 17:16 Body Mass Index 38.08 (88.45 kg, 152.40 cm) ld1 MDM: 17:19 Patient medically screened. melinda 17:36 Differential diagnosis: abnormal EKG, acute myocardial infarction, acute pericarditis, melinda chest wall pain, costochondritis, esophagitis, gastritis, gastroesophageal reflux disease (GERD), pancreatitis, peptic ulcer disease, pericarditis, pulmonary embolus, stable angina, thoracic aortic disection, unstable angina. HEART Score: History: Slightly Suspicious (0), ECG: Normal (0), Age: > 45 and < 65 years (1), Risk Factors: 1 or 2 risk factors (1), [+ Family HX] [Obesity]. The patient was given aspirin in the Emergency Department. The patient's deep vein thrombosis risk score was calculated as follows: Total Score: 0. This patient was found to be at low risk for a deep vein thrombosis by using the Well's assessment criteria. The patient's pulmonary embolism risk score was calculated as follows: the patients heart rate is greater than 100 beats per minute (1.5 Pts) Total Score: 0-2 points. This patient was found to be at low risk for a pulmonary embolism by using the Well's assessment criteria. MARLIN Risk Score: TOTAL SCORE = 0. Data reviewed: vital signs, nurses notes, lab test result(s), EKG, radiologic studies, CT scan. Data interpreted: monitoring specialist: rate is 101 beats/min, rhythm is normal sinus rhythm, Pulse oximetry: on room air is 99 %. Test interpretation: by ED physician or midlevel provider: ECG, plain radiologic studies. Counseling: I had a detailed discussion with the patient and/or guardian regarding: the historical points, exam findings, and any diagnostic results supporting the discharge/admit diagnosis, lab results, radiology results. 07/29 17:21 Order name: Basic Metabolic Panel; Complete Time: 19:07 [facility] 07/29 17:21 Order name: CBC with Diff; Complete Time: 18:44 [facility] 07/29 17:21 Order name: LFT's; Complete Time: 19:07 [facility] 07/29 17:21 Order name: Magnesium; Complete Time: 19:07 [facility] 07/29 17:21 Order name: NT PRO-BNP; Complete Time: 19:07 [facility] 07/29 17:21 Order name: PT-INR; Complete Time: 18:44 [facility] 07/29 17:21 Order name: Troponin HS; Complete Time: 19:07 [facility] 07/29 17:21 Order name: TSH; Complete Time: 19:07 [facility] 07/29 17:21 Order name: Lipase; Complete Time: 19:07 [facility] 07/29 17:21 Order name: SARS RAPID; Complete Time: 19:07 [facility] 07/29 18:46 Order name: Urine Dipstick-Ancillary; Complete Time: 18:50 EDSC 07/29 19:14 Order name: Urine --Ancillary (enter results); Complete Time: 20:16 07/30 02:49 Order name: Troponin High Sensitivity; Complete Time: 03:03 EDMS 07/30 02:49 Order name: NT PRO-BNP; Complete Time: 03:03 EDSC 07/29 17:21 Order name: XRAY Chest (1 view); Complete Time: 18:50 [facility] 07/29 17:21 Order name: EKG; Complete Time: 17:22 [facility] 07/29 17:21 Order name: Cardiac monitoring; Complete Time: 17:44 [facility] 07/29 17:21 Order name: EKG - Nurse/Tech; Complete Time: 17:44 [facility] 07/29 17:21 Order name: IV Saline Lock; Complete Time: 18:20 [facility] 07/29 17:21 Order name: CT Aorta for Dissection; Complete Time: 20:16 [facility] 07/30 02:49 Order name: Lipid Profile; Complete Time: 03:03 EDSC 07/30 08:04 Order name: Troponin High Sensitivity EDSC 07/30 13:33 Order name: NM EDSC 07/29 17:21 Order name: Labs collected and sent; Complete Time: 18:20 [facility] 07/29 17:21 Order name: O2 Per Protocol; Complete Time: 17:44 [facility] 07/29 17:21 Order name: O2 Sat Monitoring; Complete Time: 17:44 [facility] 07/29 17:21 Order name: Urine Dipstick-Ancillary (obtain specimen); Complete Time: 18:57 [facility] 07/29 17:21 Order name: Urine Test (obtain specimen); Complete Time: 18:57 [facility] EC:34 Rate is 89 beats/min. Rhythm is regular. QRS [place] is Normal. [place] interval is normal. QRS melinda interval is normal. QT interval is normal. No Q waves. T waves are Normal. No ST changes noted. Clinical impression: Normal ECG and No evidence of ischemia. Interpreted by me. Reviewed by me. Administered Medications: 18:10 Drug: NS 0.9% 1000 ml Route: IV; Rate: 125 ml/hr; Site: right forearm; eh3 18:10 Drug: NS 0.9% 500 ml Route: IV; Rate: bolus; Site: right forearm; eh3 19:07 Follow up: IV Status: Completed infusion; IV Intake: 500ml eh3 18:10 Drug: Pepcid (famotidine) 20 mg Route: IVP; Site: right forearm; eh3 18:55 Follow up: Response: No adverse reaction eh3 18:10 Drug: morphine 2 mg Route: IVP; Infused Over: 4 mins; Site: right forearm; eh3 18:55 Follow up: Response: Pain is decreased eh3 18:10 Drug: Phenergan (promethazine) 12.5 mg Route: IVP; Site: right forearm; eh3 18:55 Follow up: Response: No adverse reaction eh3 18:10 Drug: Aspirin Chewable Tablet 81 mg Route: PO; eh3 18:55 Follow up: Response: No adverse reaction eh3 19:25 Drug: Ativan (LORazepam) 1 mg Route: IVP; Site: right antecubital; eh3 20:23 Follow up: Response: Anxiety decreased eh3 Disposition Summary: 07/29/22 18:03 Hospitalization Ordered Hospitalization Status: Observation melinda Condition: Stable melinda Problem: new melinda Symptoms: have improved melinda Bed/Room Type: Standard melinda Location: [facility] ER HOLD(07/29/22 20:04) mw Room Assignment: ERHOLD-(07/29/22 20:04) mw Provider: Odalis Mejia(07/29/22 23:11) sb4 Diagnosis - Chest pain, unspecified melinda Forms: - Medication Reconciliation Form melinda - SBAR form melinda Signatures: Dispatcher [employer] EDMS Jacklyn Krishna RN RN Norberto Hallman MD MD cha Dibbern, Lauren, RN RN ld1 Krysta Long RN RN eh3 Jamila Perez PA-C PA-C sb4 Corrections: (The following items were deleted from the chart) 20:04 18:03 Telemetry/MedSurg (observation) melinda 20:04 18:03 [facility] 23:11 18:03 Shaheed Gutierres cha sb4
[2022-07-29 18:33] LABS: Protime INR 0.96
[2022-07-29 18:35] LABS: Hematocrit 41.2 % (36.0-45.0); Lymphocytes % 30.7 % (15.3-44.8); MCV 87.8 fL (80-100); MPV 8.7 fL (7.6-11.3); RBC Red Blood Cell Count 4.69 M/uL (3.86-4.86)
--- NOTE | 2022-07-29 18:45 | RAD REPORT ---
EXAM DESCRIPTION: RAD - Chest Single View - 07/29/2022 6:35 pm CLINICAL HISTORY: CHEST PAIN COMPARISON: Two view chest 05/18/2022 TECHNIQUE: AP portable chest image was obtained 07/29/2022 6:35 pm . FINDINGS: No focal mass or consolidation. Slightly hazy appearance to the lung santa is believed to be the affects of portable technique and shallow inspiration. Heart and vasculature are normal. No m easurable pleural effusion and no pneumothorax. No acute bony abnormality seen. No acute aortic findi ngs suspected. IMPRESSION: No acute cardiopulmonary process.
[2022-07-29 18:46] LABS: Urine Blood Negative (Negative); Urine Glucose Negative (Negative); Urine Protein Negative (Negative); Urine pH 8.5 (5.0-7.0)
[2022-07-29 18:55] LABS: SARS-CoV-2 Antigen Rapid Res Negative (Negative)
[2022-07-29 18:58] LABS: Albumin 3.7 g/dL (3.4-5.0); Bilirubin Direct 0.1 mg/dL (0-0.2); Bilirubin Total 0.2 mg/dL (0.2-1.0); Magnesium 2.3 mg/dL (1.8-2.4); Protein, Total 7.3 g/dL (6.4-8.2); Thyroid Stimulating Hormone 1.55 uIU/mL (0.360-3.740); Troponin High Sensitivity 5.2 pg/mL (<58.9)
[2022-07-29] MEDS ORDERED: LORazepam 2 MG/ML VIAL ONE (19:23)
--- NOTE | 2022-07-29 20:15 | RAD REPORT ---
EXAM DESCRIPTION: CT - Angio Aorta For Dissection - 07/29/2022 7:34 pm CLINICAL HISTORY: CP COMPARISON: None. TECHNIQUE: Dynamically enhanced 3 mm thick images of the chest, abdomen, and upper pelvis were obtai jose m during administration of approximately 150mL Isovue 370 IV contrast. Sagittal and coronal reconst ruction images were generated using MIP and reviewed. Exam utilizes a protocol to evaluate entire cou rse of the aorta. All CT scans are performed using dose optimization technique as appropriate and may include automated exposure control or mA/KV adjustment according to patient size. FINDINGS: Aorta is normal in diameter with no dissection or other acute aortic findings. Reconstruct ion images show no significant findings. Pulmonary arteries are normal as well. No cardiomegaly, pericardial thickening or pericardial effusio n. No mass or infiltrate in the lung parenchyma. No pleural thickening, pleural effusion or pneumothorax . No abnormal mediastinal or hilar mass or lymphadenopathy seen. No chest wall mass or abnormal axillar y lymphadenopathy. Celiac, SMA and renal arteries show no suspicious findings. Solid abdominal viscera and bowel show no significant findings. No mass or abnormal lymphadenopathy. No free air, free fluid or inflammatory stranding. No urinary bladder abnormality. Uterus and ovaries show no suspicious findings. IMPRESSION: Negative CT scan of the aorta. No other significant findings on chest, abdomen and upper pelvis examination.
--- NOTE | 2022-07-29 20:40 | P.HP ---
Certification for Inpatient Patient admitted to: Observation With expected LOS: <2 Midnights Patient will require the following post-hospital care: None Practitioner: I am a practitioner with admitting privileges, knowledge of patient current condition, hospital course, and medical plan of care. Services: Services provided to patient in accordance with Admission requirements found in Title 42 Section 412.3 of the Code of Federal Regulations Patient History Date of Service: 07/29/22 Primary Care Provider: Ronaldo Reason for admission: Chest Pain History of Present Illness: Patient is a 47 year old female with past medical history of lupus who presented to the ED with complaints of chest pain. Patient reports that she started experiencing chest pain this morning that felt like a fluttering in her chest. She states that it was associated with a sharp stabbing pain in between her shoulder blades and nausea/shortness of breath. She denies any cardiac history or prior episodes. Her EKG showed NSR. Chest xray negative. CT dissection protocol negative. Labs are unremarkable. Troponin is negative. TSH is negative. BP has been slightly elevated at 164/104. She denies history of hypertension or hyperlipidemia. She was given aspirin, morphine, pepcid, and fluids in the ED. ED provider wishes to admit patient for observation for ACS rule out. Allergies No Known Allergies Allergy (Verified 05/18/22 11:01) Home medications list reviewed: Yes Home Medications: Belimumab [Benlysta] 1 sumeet SQ EVERY 7TH DAY 05/18/22 Cyclobenzaprine [Flexeril*] 1 tab PO DAILY 05/18/22 Hydrocodone 10/APAP 325 [[place] 10/325*] 1 tab PO QID 05/18/22 Hydroxychloroquine [Plaquenil*] 1 tab PO DAILY 05/18/22 Zolpidem Tartrate 1 tab PO DAILY 05/18/22 Belimumab [Benlysta] 200 mg SQ EVERY 7TH DAY 05/21/22 Buproprion S.r. [Wellbutrin SR] 150 mg PO DAILY 05/21/22 Cariprazine HCl [Vraylar] 4.5 mg PO DAILY 05/21/22 Mirtazapine [Remeron] 45 mg PO DAILY 05/21/22 Prazosin HCl 2 mg PO DAILY 05/21/22 Promethazine Suppos [Phenergan] 25 mg RC PRN 05/21/22 Topiramate [Topamax] 100 mg PO DAILY 05/21/22 Zolpidem Tartrate [Ambien] 10 mg PO BEDTIME 05/21/22 - Past Medical/Surgical History Diabetic: No -: Lupus -: Rheumatoid Arthritis -: Asthma -: Degenerative Disc Disease -: Back Surgery -: Cholecystectomy Psychosocial/ Personal History: Patient lives at home with her family. - Family History Father -: Heart disease - Social History Smoking Status: Never smoker Alcohol use: Yes CD- Drugs: No Caffeine use: Yes Place of Residence: Home Review of Systems Cardiovascular: Chest Pain Musculoskeletal: Back Pain Physical Examination - Vital Signs Temperature: 98.1 F Blood Pressure: 164/104 Pulse: 98 Respirations: 17 Pulse Ox (%): 98 (room air) - Physical Exam General: Alert, In no apparent distress HEENT: Atraumatic, PERRLA, EOMI, Sclerae nonicteric Neck: Supple, 2+ carotid pulse no bruit, No LAD, Without JVD or thyroid abno rmality Respiratory: Clear to auscultation bilaterally, Normal air movement Cardiovascular: Regular rate/rhythm, Normal S1 S2 Gastrointestinal: Normal bowel sounds, No tenderness Musculoskeletal: No tenderness Integumentary: No rashes Neurological: Normal speech, Normal strength at 5/5 x4 extr, Normal tone, Normal affect - Studies Laboratory Data (last 24 hrs) 07/29/22 18:17: PT 10.6, INR 0.96 07/29/22 18:17: Sodium 142, Potassium 4.0, BUN 11, Creatinine 0.86, Glucose 86, Magnesium 2.3, Total Bilirubin 0.2, AST 14 L, ALT 27, Alkaline Phosphatase 77, Lipase 165 07/29/22 17:21: WBC 6.40, Hgb 14.3, Hct 41.2, Plt Count 213 Assessment and Plan - Problems (Diagnosis) (1) Chest pain Current Visit: Yes Status: Acute Qualifiers: Chest pain type: unspecified Qualified Code(s): R07.9 - Chest pain, unspecified (2) Hypertension Current Visit: Yes Status: Acute Qualifiers: Hypertension type: primary hypertension Qualified Code(s): I10 - Essential (primary) hypertension (3) Lupus (systemic lupus erythematosus) Current Visit: Yes Status: Chronic Qualifiers: Systemic lupus erythematosus type: unspecified Systemic lupus erythematosus organ involvement: unspecified Qualified Code(s): M32.9 - Systemic lupus erythematosus, unspecified (4) Chronic back pain Current Visit: Yes Status: Chronic Qualifiers: Back pain location: thoracic back pain Back pain laterality: midline Qualified Code(s): M54.6 - Pain in thoracic spine; G89.29 - Other chronic pain - Plan Patient is admitted for observation for ACS rule out. Will trend troponin and check lipid panel. Cardiology consult. Echo ordered. Patient may need blood pressure medication on discharge. Aspirin and atorvastatin daily. Monitor and replete electrolytes per protocol. Reconcile and continue home medications. Lovenox for VTE prophylaxis. Full code Discharge Plan: Home Plan to discharge in: 24 Hours - Advance Directives Does patient have a Living Will: No Does patient have a Durable POA for Healthcare: No - Code Status/Comfort Care Code Status Assessed: Yes Code Status: Full Code Physician Review: Patient Assessed, Agree with Above Assessment and Plan Critical Care: No Time Spent Managing Pts Care (In Minutes): 50
[2022-07-29] MEDS ORDERED: ONDANSETRON 4 MG/2 ML VIAL IV PRN (23:52)
[2022-07-29] MEDS ORDERED: ZOLPIDEM TARTRATE 10 MG TABLET PO PRN (23:52)
[2022-07-29] MEDS ORDERED: ACETAMINOPHEN 325 MG TABLET PO PRN (23:56)
[2022-07-30] VITALS: BMI 38.0
[2022-07-30 02:49] LABS: Troponin High Sensitivity 4.3 pg/mL (<58.9)
[2022-07-30] MEDS ORDERED: REGADENOSON 0.4 MG/5 ML SYR IV ONE (07:39)
[2022-07-30] MEDS ORDERED: ENOXAPARIN 40 MG/0.4 ML SQ SCH (09:00)
[2022-07-30] MEDS ORDERED: ENOXAPARIN 40 MG/0.4 ML SQ ONE (10:24)
[2022-07-30] MEDS ORDERED: HYDRALAZINE HCL 20 MG/ML VIAL ONE (11:04)
[2022-07-30] MEDS ORDERED: HYDRALAZINE HCL 20 MG/ML VIAL IV ONE (11:08)
[2022-07-30] MEDS ORDERED: METHYLPREDNISOLONE 40 MG INJ IV ONE (11:17)
--- NOTE | 2022-07-30 11:22 | P.DS ---
Discharge Date: 07/30/22 Primary Care Provider: Ronaldo Disposition: ROUTINE DISCHARGE Discharge Condition: GOOD Reason for Admission: Chest Pain Brief History of Present Illness: Patient is a 47-year-old female who came to the hospital with chest discomfort. She also had back pain. On exam her symptoms are mainly musculoskeletal. She was admitted to the hospital for chest pain to be ruled out. Troponins are negative. Echo and stress test are pending. Anticipate discharge home once these results are available. Hospital Course: Her stress test and echocardiogram are completed. As long these are normal she is stable for discharge home. 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 If she continues to have chest pain outpatient follow-up with cardiology unless this is worsening. At this time, she is stable for discharge on prednisone. She is already on muscle relaxers and narcotics. Vital Signs/Physical Exam: Temp Pulse Resp BP Pulse Ox 98.1 F 81 16 134/85 99 07/30/22 07:33 07/30/22 07:33 07/30/22 07:33 07/30/22 10:00 07/30/22 07:33 General: Alert, In no apparent distress, Oriented x3 Laboratory Data at Discharge: WBC 6.40 K/uL (4.3-10.9) 07/29/22 17:21 Hgb 14.3 g/dL (12.0-15.0) 07/29/22 17:21 Hct 41.2 % (36.0-45.0) 07/29/22 17:21 Plt Count 213 K/uL (152-406) 07/29/22 17:21 PT 10.6 SECONDS (9.5-12.5) 07/29/22 18:17 INR 0.96 07/29/22 18:17 Sodium 142 mmol/L (136-145) 07/29/22 18:17 Potassium 4.0 mmol/L (3.5-5.1) 07/29/22 18:17 BUN 11 mg/dL (7-18) 07/29/22 18:17 Creatinine 0.86 mg/dL (0.55-1.3) 07/29/22 18:17 Glucose 86 mg/dL (74-106) 07/29/22 18:17 Magnesium 2.3 mg/dL (1.8-2.4) 07/29/22 18:17 Total Bilirubin 0.2 mg/dL (0.2-1.0) 07/29/22 18:17 AST 14 U/L (15-37) L 07/29/22 18:17 ALT 27 U/L (12-78) 07/29/22 18:17 Alkaline Phosphatase 77 U/L (45-117) 07/29/22 18:17 Triglycerides 176 mg/dL (<150) H 07/30/22 02:12 Cholesterol 159 mg/dL (<200) 07/30/22 02:12 HDL Cholesterol 63 mg/dL (40-60) H 07/30/22 02:12 Cholesterol/HDL Ratio 2.52 07/30/22 02:12 Lipase 165 U/L (73-393) 07/29/22 18:17 Home Medications: Belimumab [Benlysta] 1 sumeet SQ EVERY 7TH DAY 05/18/22 Cyclobenzaprine [Flexeril*] 1 tab PO DAILY 05/18/22 Hydrocodone 10/APAP 325 [[place] 10/325*] 1 tab PO QID 05/18/22 Hydroxychloroquine [Plaquenil*] 1 tab PO DAILY 05/18/22 Belimumab [Benlysta] 200 mg SQ EVERY 7TH DAY 05/21/22 Buproprion S.r. [Wellbutrin Sr*] 150 mg PO DAILY 05/21/22 Cariprazine HCl [Vraylar] 4.5 mg PO DAILY 05/21/22 Mirtazapine [Remeron] 45 mg PO DAILY 05/21/22 Prazosin HCl 2 mg PO DAILY 05/21/22 Promethazine Suppos [Phenergan -Suppos*] 25 mg RC PRN 05/21/22 Topiramate [Topamax*] 100 mg PO DAILY 05/21/22 Zolpidem Tartrate [Ambien*] 10 mg PO BEDTIME 05/21/22 Amlodipine [Norvasc*] 5 mg PO DAILY #30 tab 07/30/22 Metoprolol Tartrate [Lopressor] 50 mg PO BID #60 tab 07/30/22 predniSONE [Deltasone] 20 mg PO DAILY #5 tab 07/30/22 New Medications: Metoprolol Tartrate [Lopressor] 50 mg PO BID #60 tab Amlodipine [Norvasc*] 5 mg PO DAILY #30 tab predniSONE [Deltasone] 20 mg PO DAILY #5 tab Physician Discharge Instructions: -DC IV and DC home -Follow-up with PCP in 1 to 2 weeks -Follow-up with Cardiology in 1 to 2 weeks -Please call Dr. Mejia at [phone] if any questions regarding hospital stay -Please call nursing station at [phone] if any nursing or medication questions -Return to the emergency room if symptoms worsen Diet: AHA Activity: Fall precautions Followup: Prakash Higgins, [Primary Care Provider] - Time spent managing pt's care (in minutes): 35
--- NOTE | 2022-07-30 13:33 | RAD REPORT ---
EXAM DESCRIPTION: NM - Rest Stress Cardiac Imaging - 07/30/2022 12:35 pm CLINICAL HISTORY: Chest pain COMPARISON: None. TECHNIQUE: The patient was administered 10.5 mCi of Tc 99m Sestamibi prior to resting SPECT imaging of the heart. The patient was then administered 28.6 mCi of Tc 99m Sestamibi following exercise or ph armacologic stress. Multiplanar SPECT images were reviewed. FINDINGS: The end diastolic volume is 60 ml, the end systolic volume is 15 ml, and the ejection frac tion is 75 %. No stress-induced ischemic changes are confirmed. There is a small fixed defect anterior wall near th e apex not clearly different between rest and stress imaging. Breast attenuation artifact as a possib le etiology. Scarring is suspected. No other suspicious defects identifiable. IMPRESSION: No stress-induced ischemia identified. Small fixed defect anterior wall near the apex that could be scarring or possibly breast attenuation artifact. Ventricular volumes and ejection fraction are normal range.
--- NOTE | 2022-07-30 13:45 | EKG ---
Test Date: 2022-07-29 Test Time: 17:30:50 Telephone Answering Service Operator: MABEL MEASUREMENT RESULTS: Intervals: Rate: 89 WI: 112 QRSD: 80 QT: 338 QTc: 411 [place]: P: 49 WI: 112 QRS: 82 T: 43 INTERPRETIVE STATEMENTS: Normal sinus rhythm Normal ECG Compared to ECG 05/18/2022 11:31:19 Short WI interval no longer present Electronically Signed On 07-30-22 13:44:12 SHEET METAL OPERATOR by Renard Barbour
[2022-07-30] MEDS ORDERED: METHYLPREDNISOLONE 40 MG INJ ONE (13:46)
[2022-07-30] MEDS ORDERED: ACETAMINOPHEN 325 MG TABLET ONE (13:46)
[2022-07-30 13:55] VITALS: BP 116/70; TEMP 98.4
--- NOTE | 2022-07-30 14:02 | TREADPHA ---
DX: CHEST PAIN Date of Study: 07/30/22 Ht: 5' 0 " Wt: 194 lb 15.982 oz Consulting Physician: LEIGH MEDICATIONS: HYDROCODONE, FLEXERIL, PLAQUERIL, TOPAMAX, AMBIEN HISTORY: 47 YEAR OLD FEMALE WITH COMLAINTS OF CHEST PAIN AND BACK PAIN. HISTORY OF LUPUS, BACK SURGERY, ASTHMA. PHYSICIAL EXAMINATION: RESTING B.P.: 91/63 RESTING H.R.: 82 RESTING EKG: NORMAL SINUS RHYTHM, WITHIN NORMAL LIMITS. PROTOCOL: LEXISCAN EXERCISE TIME: 3:30 B.P. AT PEAK STRESS: 94/63 IMPRESSION: LEXISCAN INJECTED, CARDIOLITE GIVEN PER PROTOCOL. SEE NUCLEAR MEDICINE REPORT. PATIENT COMPLAINED OF INCREASED CHEST PAIN. NO SUPRA VENTRICULAR TACHYCARDIA, VENTRICULAR TACHYCARDIA, PREMATURE ATRIAL COMPLEXES, PREMATURE VENTRICULAR COMPLEXES NOTED. NO EKG CHANGES OF ISCHEMIA.
--- NOTE | 2022-07-30 14:24 | ECHO ---
HEIGHT: 5 ft 0 in WEIGHT: 194 lb 15.982 oz DATE OF STUDY: 07/30/[address]: Jamila Perez 2-DIMENSIONAL: YES M.MODE: YES DOPPLER: YES COLOR FLOW: YES TDS: YES PORTABLE: YES DEFINITY: BUBBLE STUDY: DIAGNOSIS: CHEST PAIN CARDIAC HISTORY: CATHERIZATION: NO SURGERY: NO PROSTHETIC VALVE: NO PACEMAKER: NO MEASUREMENTS (cm) DIASTOLIC (NORMALS) SYSTOLIC (NORMALS) IVSd 0.9 (0.6-1.2) LA Diam 2.6 (1.9-4.0) LVEF 55% LVIDd 4.1 (3.5-5.7) LVIDs 2.9 (2.0-3.5) %FS 28% LVPWd 0.9 (0.6-1.2) Ao Diam 2.1 (2.0-3.7) 2 DIMENSIONAL ASSESSMENT: RIGHT ATRIUM: NORMAL LEFT ATRIUM: NORMAL RIGHT VENTRICLE: NORMAL LEFT VENTRICLE: NORMAL TRICUSPID VALVE: MILD TRICUPSID REGURGITATION MITRAL VALVE: MILD MITRAL REGURGITATION PULMONIC VALVE: NORMAL AORTIC VALVE: NORMAL PERICARDIAL EFFUSION: NONE AORTIC ROOT: NORMAL LEFT VENTRICULAR WALL MOTION: NORMAL DOPPLER/COLOR FLOW: MILD TRICUPSID REGURGUTATION, MITRAL REGURGITATION COMMENTS: 1. NORMAL LEFT VENTRICULAR EJECTION FRACTION 55-60% WITH NORMAL WALL MOTION 2. NORMAL DIASTOLIC FUNCTION 3. MILD MITRAL REGURGITATION 4. MILD TRICUSPID REGURGITATION TECHNOLOGIST: LEORA CHENG
[2022-07-30 15:09] VITALS: O2SAT 98
--- NOTE | 2022-07-30 20:12 | CON ---
Date of Consultation: 07/30/2022 Reason For Consultation: Chest pain. History Of Present Illness: A 47-year-old female with history of lupus, rheumatoid arthritis, and as thma, presented with chest pain, felt like something fluttering in her chest and has pain between her shoulder blades. Denies having any nausea or diaphoresis. No shortness of breath and no exertional chest pain. Past Medical History: As outlined above in the HPI. Medications: Refer reconciliation sheet for detailed list. Allergies: NO KNOWN DRUG ALLERGIES. Family History: No premature coronary artery disease or cancer. Social History: She does not smoke or drink. Does not use any drugs. Review of Systems: All systems reviewed are negative except mentioned in HPI. Physical Examination: Vital Signs: Showed temperature is 98.4, pulse 84, breathing at 18, blood pressure 116/70, saturatin g 98% on room air. General: Pleasant middle-aged female, in no apparent distress. Head and Neck: Pupils are equal, reactive to light. Intact eye movements. No JVD. No cervical lym phadenopathy. Neck: Supple. Thyroid is not enlarged. Lungs: Clear to auscultation bilaterally. No rhonchi, rales, or crackles. No accessory muscle use. Heart: Regular rate and rhythm. No extra sounds. Abdomen: Soft, nontender. Bowel sounds positive. No organomegaly. No masses or hernia. No rigidi ty or rebound. Extremities: No edema, clubbing, cyanosis. Intact pulses. Skin: No rash. Neurologic: Alert, awake, oriented x3. No acute focal deficits appreciated. Lymph Nodes: No cervical or axillary lymphadenopathy. Investigations: Troponins x3 are negative. Echo is normal ejection fraction. No wall motion abnorm alities and her Lexiscan nuclear stress test was negative for ischemia. Assessment And Recommendations: 1.Chest pain. This is likely noncardiac. Has normal echo, normal stress test. The patient can be released from Cardiology standpoint and follow up with her primary care physician and search for othe r causes of chest pain. If she continues to have chest pain on outpatient basis, and specially if it is exertional, then we will consider further evaluation and ask her to follow up in the office only if she continues to have chest pains. Also recommend to check D-dimer. 2.Hypertension, probably the cause of her pain. Blood pressure is controlled now. Continue current medications. SR/MODL Voice ID: [id number] Report ID: [id number]
== END 2022-07-30 14:19 | disposition home or self-care (01) ==
LOC: ER 17:11 → ERHOLD 20:30
PROVIDERS: ADMIT Hospitalist; ATTEND Hospitalist
DX: R07.9 Chest pain, unspecified (principal); I10 Essential (primary) hypertension; M32.9 Systemic lupus erythematosus, unspecified; G89.29 Other chronic pain; Z20.822 Contact with and (suspected) exposure to COVID-19
CPT/HCPCS: 93005; 93017; 93306; 85025; 80048; 36415; 83735; 81025; 85610; 80061; 80076; 84443; 81003; 84484 ×3; 83690; 83880 ×2; 71275; 74175; 71045; 78452; 87811; Q9967; J0360; J2550; J1650; J2270; J2785; J7040; J7030; J2920; A9500; G0378

== ENCOUNTER 2023-05-16 13:23 | Emergency (ER) | payer OTHER ==
--- OUTSIDE RECORDS SUMMARY | 2023-05-16 13:28 | XMS REPORT | Continuity of Care Document ---
:1975 Author Organization [facility] [place] [facility] t Address [address] [place] [address] [address] [place] [address] Care Team Providers Name Role Phone BRANDEE HIGGINS Primary Care Physician Unavailable Brandee Higgins Attending Clinician Unavailable Natalia Vega Attending Clinician Unknown, Attending Attending Clinician Unavailable NATALIA VÁSQUEZ Attending Clinician Unavailable LV WOLF Attending Clinician Unavailable Lv Elizalde Attending Clinician Hakan CONTI Attending Clinician Unavailable Hakan Guzman Attending Clinician ARCENIO NAPOLES Attending Clinician Unavailable Arcenio Napoles PA-C Attending Clinician Doctor Unassigned, [place] Attending Clinician Unavailable Melissa Yancey MD Attending Clinician Fidencio Bass Attending Clinician MELISSA YANCEY Attending Clinician Unavailable Mary Kay Clayton Attending Clinician GARY GONZALEZ Attending Clinician Unavailable Gary Wyatt Attending Clinician Only, Ang Db Test Attending Clinician Unavailable FIDENCIO PEREZ Attending Clinician Unavailable JENNA HIDALGO Attending Clinician Unavailable Jenna Garcia S Attending Clinician Maddie STYLES, Jason Fuentes Attending Clinician CARLOS ANDERSON Attending Clinician Unavailable Boby Bal DO Attending Clinician Willy Grace DO Attending Clinician Mariela SYSTEMS TEST ENGINEER, Dionne Person Attending Clinician Tori Shaw DO Attending Clinician Kaylah Pool Attending Clinician RADIOLOGY Attending Clinician Unavailable Radiology Attending Clinician Unavailable KAYLAH WOLFF Attending Clinician Unavailable BOBY BAL Attending Clinician Unavailable ANDREW MAXWELL Attending Clinician Unavailable Hakan CONTI Admitting Clinician Unavailable GARY GONZALEZ Admitting Clinician Unavailable ADELFO MONTEIRO Admitting Clinician Unavailable BOBY BAL Admitting Clinician Unavailable Payers Payer Name Policy Type Policy Number Effective Date Expiration Date S jama MEDICARE PART A [id number] 2006 \\T\\ B 00:00:00 MCCARTY [id number] 2016 HEALTHCARE 00:00:00 MEDICAID [place] [id number] 2011 [place] 00[place] [id number] 2020 Common 00:00:00 [facility] MEDICARE NOVITAS [id number] 2006 Common 00:00:00 [facility] MEDICAID [id number] 2020 Common 00:00:00 [facility] MEDICARE NOVITAS [id number] 2006 Common 00:00:00 [facility] [id number] 2019 2020 HMO 00:00:00 00:00:00 Problems Condition Condition Condition Status Onset Resolution Last Treating Co mments Source Name Details Category Date Date Treatment Clinician Date Right Right Disease Active Univers ankle pain ankle pain 9-20 it y of 00:00: [place] [address] Medical Branch Encounter Encounter Disease Active Uni vers for for 5-24 [place]y of [place]iz[place] [facility] Lupus Lupus Problem Common [facility] - [facility] [id number] Body mass Problem Com mon index Spirit [BMI] - CHI 35.0-35.9, [facility] [id number] Morbid Problem Commo n 9104 (severe) Spirit obesity - CHI due to [facility] [id number] Uncomplica Problem Com mon olivia opioid Spirit dependence - [facility] [id number] Current Problem Common moderate Spirit episode of - CHI major depressive [facility] disorder Medical without Center prior episode [id number] Bipolar Problem Commo n affective Spirit disorder, - [facility]I currently [facility] [id number] Primary Problem Common insomnia [facility] [id number] SPENCER Problem Common (generaliz Spirit ed anxiety - CHI disorder) [facility] [id number] Ulcerative Problem Com mon colitis Spirit with - [facility] unspecifie Medica l d location Center [id number] Chronic Problem Common fatigue [facility] [id number] Gastroesop Problem Co mmon hageal Spirit reflux - CHI disease [facility] esophagiti Medica l s Center [id number] Migraine Problem Comm on without Spirit aura and - CHI without [facility] migrainosu Medica l s, not Center intractabl e [id number] Other Problem Common chronic Spirit pain - [facility] [id number] DDD Problem Common (degenerat Spirit bandar disc - CHI disease), [facility] [id number] Vitamin D Problem Comm on deficiency Spirit - [facility] [id number] Systemic Problem Commo n lupus Spirit erythemato - CHI heather, St unspecifie [facility] d SLE Medical type, Center unspecifie d organ involvemen t status Allergies, Adverse Reactions, Alerts Allergy Allergy Status Severity Reaction(s) Onset Inactive Treating Comm ents Source Name Type Date Date Clinician NO KNOWN Drug Active Univers ALLERGIE Class ity of [facility] Social History Social Habit Start Date Stop Date Quantity Comments Source History of Tobacco Common Spirit - Use [facility] Sex Assigned At Common Sp meghana - [facility] Gender identity Universit y [facility] Alcohol intake 2023-05-02 2023-05-02 0 /d University of 00:00:00 00:00:00 [facility] Exposure to 2022-11-25 2022-12-05 Not sure [facility] SARS-CoV-2 (event) 00:00:00 14:43:00 [facility] History of Social 2022-12-05 2022-12-05 Univers ity of function 00:00:00 00:00:00 [facility] Tobacco use and 2016-05-15 2016-05-15 Smokeless Universit y of exposure 00:00:00 00:00:00 tobacco non-user [facility] Smoking Status Start Date Stop Date Source Never smoked tobacco [facility] Medications Ordered Filled Start Stop Current Ordering Indication Dosage Frequency Signature Comments Components Source Medication Medication Date Date Medication? Clinician (SIG) Name Name dicyclomine 2022- Yes [id number] 10mg Take 1 Univers 10 mg 05-02 capsule by ity of capsule 00:00: 04:59 mouth 4 [place] 00 :00 (four) Medical times [place] daily for 7 days. ondansetron 2022- Yes [id number] 4mg Take 1 Univers 4 mg 05-02 tablet by ity of disintegrat 00:00: 04:59 [place] tablet 00 :00 every 8 Medica l (eight) Branch hours as needed for Nausea and Vomiting (N/V) for up to 5 days. proMETHazin 2022- No 25mg 25 mg, Uni vers e 02-16 Oral, ity of (PHENERGAN) 00:45: 00:31 ONCE[place] 1 [place] 25 00 :00 dose, On Medica l mg Fri Branch 02/15/23 at 1945, TOY iopamidol 2022- No [id number] 80mL 80 mL, U nivers (ISOVUE 02-15 Intravenou ity o f 370-500 mL) 23:15: 23:15 s, ONCE, 1 [place] injection 00 :00 dose, On Medica l 80 mL Fri Branch 02/15/23 at 1815, Routine NaCl 0.9% 2022- No 1000mL at 999 Uni vers (NS) bolus 6-23 06-24 mL/hr, ity of infusion 22:45: 01:36 1,000 mL, [place] as 1,000 mL 00 :00 IV Medical Infusion, Branch ONCE, 1 dose, On Sat02/15/23 at 1745, STAT proMETHazin 2022-0 Yes [id number] 25mg Take 1 Univers e 25 mg 6-23 tablet by ity of tablet 00:00: mouth [place] 00 every 4 Medical (four) Branch hours as needed for Nausea and Vomiting (N/V). proMETHazin 2022-0 2022- No [id number] 25mg Take 1 Univers e 25 mg 6-23 08-08 tablet by ity of tablet 00:00: 00:00 mouth [place] 00 :00 every 4 Medical (four) Branch hours as needed for Nausea and Vomiting (N/V). dicyclomine 2022-0 Yes [id number] 10mg Take 1 Univers 10 mg 4-12 capsule by ity of capsule 00:00: mouth 4 [place] 00 (four) Medical times Branch daily. dicyclomine 2022-0 Yes [id number] 10mg Take 1 Univers 10 mg 4-12 capsule by ity of capsule 00:00: mouth 4 [place] 00 (four) Medical times Branch daily. dicyclomine 2022-0 2022- No [id number] 10mg Take 1 Univers 10 mg 4-12 08-08 capsule by ity of capsule 00:00: 00:00 mouth 4 [place] 00 :00 (four) Medical times Branch daily. Kenalog Kenalog 2021-08 No 40mg Common (Triamcinol (Triamcinol 1-09 S pirit one) one) 00:00: - CHI 00 [facility] hydroxychlo 2021-08 Yes Take by Uni vers roquine 0-05 mouth. ity of sulfate 11:33: [place] (PLAQUENIL 32 Medical ORAL) Branch hydroxychlo 2021-08 Yes Take by Uni vers roquine 0-05 mouth. ity of sulfate 11:33: [place] (PLAQUENIL 32 Medical ORAL) Branch hydroxychlo 2021-08 Yes Take by Uni vers roquine 0-05 mouth. ity of sulfate 11:33: [place] (PLAQUENIL 32 Medical ORAL) Branch hydroxychlo 2021-08 Yes Take by Uni vers roquine 0-05 mouth. ity of sulfate 11:33: [place] (PLAQUENIL 32 Medical ORAL) Branch hydroxychlo 2021-08 Yes Take by Uni vers roquine 0-05 mouth. ity of sulfate 11:33: [place] (PLAQUENIL 32 Medical ORAL) Branch hydroxychlo 2021-08 Yes Take by Uni vers roquine 0-05 mouth. ity of sulfate 11:33: [place] (PLAQUENIL 32 Medical ORAL) Branch proMETHazin 2021-08 Yes [id number] 25mg Take 1 Univers e 25 mg 0-05 tablet by ity of tablet 00:00: mouth [place] 00 every 6 Medical (six) Branch hours as needed for Nausea and Vomiting (N/V). proMETHazin 2021-08 Yes [id number] 25mg Take 1 Univers e 25 mg 0-05 tablet by ity of tablet 00:00: mouth [place] 00 every 6 Medical (six) Branch hours as needed for Nausea and Vomiting (N/V). proMETHazin 2021-08 Yes [id number] 25mg Take 1 Univers e 25 mg 0-05 tablet by ity of tablet 00:00: mouth [place] 00 every 6 Medical (six) Branch hours as needed for Nausea and Vomiting (N/V). proMETHazin 2021-08 Yes [id number] 25mg Take 1 Univers e 25 mg 0-05 tablet by ity of tablet 00:00: mouth [place] 00 every 6 Medical (six) Branch hours as needed for Nausea and Vomiting (N/V). proMETHazin 2021-08- No [id number] 25mg Take 1 Univers e 25 mg 0-05 08-08 tablet by ity of tablet 00:00: 00:00 mouth [place] 00 :00 every 6 Medical (six) Branch hours as needed for Nausea and Vomiting (N/V). proMETHazin 2021- No [id number] 25mg Take 1 Univers e 25 mg 5-24 05-30 tablet by ity of tablet 00:00: 04:59 mouth [place] 00 :00 every 6 Medical (six) Branch hours for 5 days. ondansetron 2021- No 4mg 4 mg, Slow Univers (ZOFRAN 5-13 05-13 IV Push, ity of (PF)) 17:00: 16:46 [...] 01/05/22 at 1200, TOY docusate 2021- No [id number] 100mg Take 1 Univers 100 mg 01-05 capsule by ity of capsule 00:00: 04:59 mouth [place] 00 :00 daily for Medical 30 days. Branch docusate 2021- No [id number] 100mg Take 1 Univers 100 mg 01-05 capsule by ity of capsule 00:00: 04:59 mouth [place] 00 :00 daily for Medical 30 days. Branch polyethylen 2021- No [id number] 17g Take 17 g Univers e glycol 01-05 by mouth 2 ity of 3350 00:00: 04:59 (two) [place] (MIRALAX) 00 :00 times Medical 17 daily for Branch gram/dose 5 days. powder sennosides 2021- No [id number] 8.6mg Take 1 Univers (SENOKOT) 01-05 tablet [...] (PLAQUENIL 21 Medical ORAL) Branch proMETHazin Yes [id number] 25mg Insert 1 Univers e 25 mg 7-15 Suppositor ity of suppository 00:00: [place] 00 rectum Medical every 4 Branch (four) hours as needed for Nausea and Vomiting (N/V). proMETHazin Yes [id number] 25mg Insert 1 Univers e 25 mg 7-15 Suppositor ity of suppository 00:00: [place] 00 rectum Medical every 4 Branch (four) hours as needed for Nausea and Vomiting (N/V). proMETHazin Yes [id number] 25mg Insert 1 Univers e 25 mg 7-15 Suppositor ity of suppository 00:00: [place] rectum Medical every 4 Branch (four) hours as needed for Nausea and Vomiting (N/V). proMETHazin Yes [id number] 25mg Insert 1 Univers e 25 mg 7-15 Suppositor ity of suppository 00:00: [place] 00 rectum Medical every 4 Branch (four) hours as needed for Nausea and Vomiting (N/V). proMETHazin Yes [id number] 25mg Insert 1 Univers e 25 mg 7-15 Suppositor ity of suppository 00:00: [place] 00 rectum Medical every 4 Branch (four) hours as needed for Nausea and Vomiting (N/V). proMETHazin Yes [id number] 25mg Insert 1 Univers e 25 mg 7-15 Suppositor ity of suppository 00:00: [place] 00 rectum Medical every 4 Branch (four) hours as needed for Nausea and Vomiting (N/V). proMETHazin Yes [id number] 25mg Insert 1 Univers e 25 mg 7-15 Suppositor ity of suppository 00:00: [place] 00 rectum Medical every 4 Branch (four) hours as needed for Nausea and Vomiting (N/V). proMETHazin Yes [id number] 25mg Insert 1 Univers e 25 mg 7-15 Suppositor ity of suppository 00:00: [place] 00 rectum Medical every 4 Branch (four) hours as needed for Nausea and Vomiting (N/V). proMETHazin 2020-0 Yes [id number] 25mg Insert 1 Univers e 25 mg 7-15 Suppositor ity of suppository 00:00: [place] 00 rectum Medical every 4 Branch (four) hours as needed for Nausea and Vomiting (N/V). proMETHazin 0 2023- No [id number] 25mg Insert 1 Univers e 25 mg 7-15 08-08 Suppositor ity o f suppository 00:00: 00:00 y into [place] 00 :00 rectum Medical every 4 Branch (four) hours [...] 20 MG 00:00: 00 naproxen 2020-0 Yes [id number] 550mg Take 1 Un gita sodium 4-13 tablet by ity of (ANAPROX 00:00: mouth 2 [place] DS) 550 mg 00 (two) Medical tablet times Branch daily with meals. methylPREDN 2020-0 Yes [id number] Take by Univers ISolone 4-13 mouth ity of (MEDROL, 00:00: SEE-INSTRU [place] HERMAN,) 4 mg 00 CTIONS. Medica l tablets follow Branch package directions naproxen 2020-0 Yes [id number] 550mg Take 1 Un gita sodium 4-13 tablet by ity of (ANAPROX 00:00: mouth 2 [place] DS) 550 mg 00 (two) Medical tablet times Branch daily with meals. methylPREDN 2020-0 Yes [id number] Take by Univers ISolone 4-13 mouth ity of (MEDROL, 00:00: SEE-INSTRU [place] HERMAN,) 4 mg 00 CTIONS. Medica l tablets follow Branch package directions naproxen 2020-0 Yes [id number] 550mg Take 1 Un gita sodium 4-13 tablet by ity of (ANAPROX 00:00: mouth 2 [place] DS) 550 mg 00 (two) Medical tablet times Branch daily with meals. methylPREDN 202-0 Yes [id number] Take by Univers ISolone 4-13 mouth ity of (MEDROL, 00:00: SEE-INSTRU [place] HERMAN,) 4 mg 00 CTIONS. Medica l tablets follow Branch package directions naproxen 2020-0 Yes [id number] 550mg Take 1 Un gita sodium 4-13 tablet by ity of (ANAPROX 00:00: mouth 2 [place] DS) 550 mg 00 (two) Medical tablet times Branch daily with meals. methylPREDN 2020-0 Yes [id number] Take by Univers ISolone 4-13 mouth ity of (MEDROL, 00:00: SEE-INSTRU [place] HERMAN,) 4 mg 00 CTIONS. Medica l tablets follow Branch package directions naproxen 2020-0 Yes [id number] 550mg Take 1 Un gita sodium 4-13 tablet by ity of (ANAPROX 00:00: mouth 2 [place] DS) 550 mg 00 (two) Medical tablet times Branch daily with meals. methylPREDN 2020-0 Yes [id number] Take by Univers ISolone 4-13 mouth ity of (MEDROL, 00:00: SEE-INSTRU [place] HERMAN,) 4 mg 00 CTIONS. Medica l tablets follow Branch package directions naproxen 2020-0 Yes [id number] 550mg Take 1 Un gita sodium 4-13 tablet by ity of (ANAPROX 00:00: mouth 2 [place] DS) 550 mg 00 (two) Medical tablet times Branch daily with meals. methylPREDN 1-0 Yes [id number] Take by Univers ISolone 4-13 mouth ity of (MEDROL, 00:00: SEE-INSTRU [place] HERMAN,) 4 mg 00 CTIONS. Medica l tablets follow Branch package directions naproxen 2020-0 Yes [id number] 550mg Take 1 Un gita sodium 4-13 tablet by ity of (ANAPROX 00:00: mouth 2 [place] DS) 550 mg 00 (two) Medical tablet times Branch daily with meals. methylPREDN 2021-0 Yes [id number] Take by Univers ISolone 4-13 mouth ity of (MEDROL, 00:00: SEE-INSTRU [place] HERMAN,) 4 mg 00 CTIONS. Medica l tablets follow Branch package directions naproxen 2020-0 Yes [id number] 550mg Take 1 Un gita sodium 4-13 tablet by ity of (ANAPROX 00:00: mouth 2 [place] DS) 550 mg 00 (two) Medical tablet times Branch daily with meals. methylPREDN 1-0 Yes [id number] Take by Univers ISolone 4-13 mouth ity of (MEDROL, 00:00: SEE-INSTRU [place] HERMAN,) 4 mg 00 CTIONS. Medica l tablets follow Branch package directions naproxen 2020-0 Yes [id number] 550mg Take 1 Un gita sodium 4-13 tablet by ity of (ANAPROX 00:00: mouth 2 [place] DS) 550 mg 00 (two) Medical tablet times Branch daily with meals. methylPREDN 2020-0 Yes [id number] Take by [facility] ISolone 4-13 mouth ity of (MEDROL, 00:00: SEE-INSTRU [place] HERMAN,) 4 mg 00 CTIONS. Medica l tablets follow Branch package directions naproxen 2020-0 2023- No [id number] 550mg Take 1 U nivers sodium 4-13 08-08 tablet by ity of (ANAPROX 00:00: 00:00 mouth 2 [place] DS) 550 mg 00 :00 (two) Medical tablet times Branch daily with meals. methylPREDN 2020-0 2023- No [id number] Take by [facility] ISolone 4-13 08-08 mouth ity of (MEDROL, 00:00: 00:00 [place] 4 mg 00 :00 CTIONS. Medica l tablets follow Branch package [...] route as needed for 30 days. IBUPROFEN 2017-0 Yes 400mg Take 1 Unive [...] needed for Pain (scale 1-3). IBUPROFEN 2017-0 2022- No 400mg Take 1 Univ ers 400 mg 3-17 04-12 tablet by ity of tablet 00:00: 00:00 mouth [place] 00 :00 every 6 Medical (six) Branch hours as needed for Pain (scale 1-3). omeprazole 2015-0 Yes 40mg Take 1 Unive rs (PRILOSEC) [...] [place] capsule 00 daily. Medical Branch omeprazole 2023- No 40mg Take 1 Univ ers (PRILOSEC) 5-17 04-12 capsule by it y of 40 mg 00:00: 00:00 mouth [place] capsule 00 :00 daily. Medical Branch Vraylar 6 Vraylar 6 [...] HYDROcodone HYDROcodone No HYDROcodon -Acetaminop -Acetaminop e-Acetamin [facility] Ambien 10 Ambien 10 No 1{table [...] HYDROcodone HYDROcodone No HYDROcodon -Acetaminop -Acetaminop e-Acetamin [facility] Ambien 10 Ambien 10 No 1{table [...] HYDROcodone HYDROcodone No HYDROcodon -Acetaminop -Acetaminop e-Acetamin [facility] Vraylar 6 Vraylar 6 No 1{capsu [...] MG 00:00 as_need 12.5 MG :00 ed} Vital Signs Vital Name Observation Time Observation Value Comments Source Systolic blood 2023-05-02 21:58:00 131 mm[Hg] Univer sity of [facility] Diastolic blood 2023-05-02 21:58:00 83 mm[Hg] Unive rsity of [facility] Heart rate 2023-05-02 21:58:00 100 /min Universi ty [facility] Body temperature 2023-05-02 21:58:00 36.17 [facility] Respiratory rate 2023-05-02 21:58:00 16 /min [facility] Body height 2023-05-02 21:58:00 152.4 cm Universi ty [facility] Body weight 2023-05-02 21:58:00 89.54 kg Universi ty [facility] BMI 2023-05-02 21:58:00 38.55 kg/m2 [facility] Oxygen saturation in 2023-05-02 21:58:00 96 /min [facility] Arterial blood by [facility] Pulse oximetry Branch Systolic blood 2023-04-02 18:16:00 122 mm[Hg] Univer sity of [facility] Diastolic blood 2023-04-02 18:16:00 88 mm[Hg] Unive rsity of [facility] Heart rate 2023-04-02 18:16:00 101 /min Universi ty [facility] Body temperature 2023-04-02 18:16:00 36.83 [facility] 2023-04-02 18:16:00 18 /min [facility] Body height 2023-04-02 18:16:00 154.9 cm Universi ty [facility] Body weight 2023-04-02 18:16:00 86.909 kg Univers ty [facility] [place] [facility] BMI 2023-04-02 18:16:00 36.20 kg/m2 Universi ty [facility] [place] [facility] Oxygen saturation in 2023-04-02 18:16:00 98 /min University of Arterial blood by [email or web address] [facility] Pulse oximetry Branch Systolic blood 2023-02-16 02:40:00 132 mm[Hg] Univer sity of pressure [place] [facility] Diastolic blood 2023-02-16 02:40:00 72 mm[Hg] Unive rsity of pressure [place] [facility] Heart rate 2023-02-16 02:40:00 84 /min Universi ty of [place] [facility] Respiratory rate 2023-02-16 02:40:00 16 /min Univ ersity of [place] [facility] Oxygen saturation in 2023-02-16 02:40:00 98 /min University of Arterial blood by [email or web address] [facility]iersten Pulse oximetry Branch Body temperature 2023-02-15 19:39:00 36.78 [place] Univ ersity of [place] [facility] Body height 2023-02-15 19:39:00 154.9 cm Universi ty of [place] [facility] Body weight 2023-02-15 19:39:00 86.637 kg Universi ty of [place] [facility] BMI 2023-02-15 19:39:00 36.09 kg/m2 Universi ty [facility] [place] [facility] Systolic blood 2022-12-05 19:51:00 126 mm[Hg] Univer sity of pressure [place] [facility] Diastolic blood 2022-12-05 19:51:00 83 mm[Hg] Unive rsity of pressure [place] [facility] Heart rate 2022-12-05 19:51:00 92 /min Universi ty of [place] [facility] Body temperature 2022-12-05 19:51:00 36.61 [place] Univ ersity of [place] [facility] Respiratory rate 2022-12-05 19:51:00 16 /min Univ ersity of [place] [facility] Body height 2022-12-05 19:51:00 152.4 cm Universi ty [facility] [place] [facility] Body weight 2022-12-05 19:51:00 89.841 kg Universi ty [facility] [place] [facility] BMI 2022-12-05 19:51:00 38.68 kg/m2 Universi ty of [place] [facility] Oxygen saturation in 2022-12-05 19:51:00 96 /min University of Arterial blood by [facility] Pulse oximetry Branch height 2022-07-04 08:20:00 61 [in_i] Common [facility] weight 2022-07-04 08:20:00 191.5 [lb_av] [facility] temperature 2022-07-04 08:20:00 97.2 [degF] [facility] bmi 2022-07-04 08:20:00 36.18 kg/m2 [facility] oximetry 2022-07-04 08:20:00 99 % [facility] respiratory rate 2022-07-04 08:20:00 18 /min Comm on [facility] blood pressure 2022-07-04 08:20:00 115 mm[Hg] [facility] [place] [place] - systolic [facility] blood pressure 2022-07-04 08:20:00 71 mm[Hg] [facility] diastolic [facility] Systolic blood 2022-05-30 16:35:00 133 mm[Hg] Univer sity of [facility] Diastolic blood 2022-05-30 16:35:00 89 mm[Hg] Unive rsity [facility] Heart rate 2022-05-30 16:35:00 116 /min [facility] Body temperature 2022-05-30 16:35:00 36.89 [place] [facility] Respiratory rate 2022-05-30 16:35:00 18 /min [facility] Body height 2022-05-30 16:35:00 152.4 cm [facility] Body weight 2022-05-30 16:35:00 88.99 kg [facility] BMI 2022-05-30 16:35:00 38.32 kg/m2 [facility] Oxygen saturation in 2022-05-30 16:35:00 100 /min University of Arterial blood by [facility] Pulse oximetry [place] height 2022-03-14 13:50:00 61 [in_i] [facility] weight 2022-03-14 13:50:00 189 [lb_av] Common [facility] temperature 2022-03-14 13:50:00 97.6 [degF] Common [facility] bmi 2022-03-14 13:50:00 35.71 kg/m2 Common [facility] oximetry 2022-03-14 13:50:00 100 % Common S [facility] respiratory rate 2022-03-14 13:50:00 16 /min Comm on [facility] blood pressure 2022-03-14 13:50:00 132 mm[Hg] Common [facility] - systolic [facility] blood pressure 2022-03-14 13:50:00 73 mm[Hg] Common [facility] - diastolic [facility] height 2022-03-14 13:40:00 61 [in_i] Common [facility] weight 2022-03-14 13:40:00 189 [lb_av] Common [facility] temperature 2022-03-14 13:40:00 97.6 [degF] Common [facility] bmi 2022-03-14 13:40:00 35.71 kg/m2 Common S [facility] oximetry 2022-03-14 13:40:00 100 % [facility] respiratory rate 2022-03-14 13:40:00 16 /min Comm on [facility] blood pressure 2022-03-14 13:40:00 132 mm[Hg] Common [facility] - systolic [facility] blood pressure 2022-03-14 13:40:00 73 mm[Hg] Common [facility] - diastolic [facility] Systolic blood 2022-01-16 20:40:00 135 mm[Hg] Univer sity of [facility] Diastolic blood 2022-01-16 20:40:00 87 mm[Hg] Unive rsity of [facility] Heart rate 2022-01-16 20:40:00 98 /min Universi ty [facility] Body temperature 2022-01-16 20:40:00 36.5 Meredith [facility] Respiratory rate 2022-01-16 20:40:00 16 /min [facility] Body height 2022-01-16 20:40:00 152.4 cm [facility] Body weight 2022-01-16 20:40:00 83.779 kg [facility] BMI 2022-01-16 20:40:00 36.07 kg/m2 [facility] Oxygen saturation in 2022-01-16 20:40:00 99 /min University of Arterial blood by [facility] Pulse oximetry Branch Systolic blood 2022-01-05 15:50:00 158 mm[Hg] Univer sity of pressure [facility] Diastolic blood 2022-01-05 15:50:00 89 mm[Hg] Unive rsity of [facility] Heart rate 2022-01-05 15:50:00 101 /min [facility] Body temperature 2022-01-05 15:50:00 37.06 Meredith [facility] of [facility] Respiratory rate 2022-01-05 15:50:00 18 /min [facility] Body height 2022-01-05 15:50:00 154.9 cm [facility] Body weight 2022-01-05 15:50:00 79.379 kg [facility] BMI 2022-01-05 15:50:00 33.07 kg/m2 [facility] Oxygen saturation in 2022-01-05 15:50:00 100 /min University of Arterial blood by [facility] Pulse oximetry Branch height 2021-12-13 16:20:00 61 [in_i] [facility] weight 2021-12-13 16:20:00 170 [lb_av] [facility] temperature 2021-12-13 16:20:00 98.2 [degF] [facility] bmi 2021-12-13 16:20:00 32.12 kg/m2 [facility] blood pressure 2021-12-13 16:20:00 125 mm[Hg] [facility] systolic [facility] blood pressure 2021-12-13 16:20:00 74 mm[Hg] [facility] - diastolic [facility] height 2021-09-06 16:30:00 61 [in_i] [facility] - [facility] weight 2021-09-06 16:30:00 169 [lb_av] [facility] - [facility] temperature 2021-09-06 16:30:00 97 [degF] [facility] - [facility] bmi 2021-09-06 16:30:00 31.93 kg/m2 [facility] - [facility] blood pressure 2021-09-06 16:30:00 128 mm[Hg] [facility] - systolic [facility] blood pressure 2021-09-06 16:30:00 72 mm[Hg] [facility] - diastolic [facility] height 2021-06-06 15:50:00 61 [in_i] [facility] - [facility] weight 2021-06-06 15:50:00 170 [lb_av] [facility] temperature 2021-06-06 15:50:00 98 [degF] [facility] bmi 2021-06-06 15:50:00 32.12 kg/m2 [facility] blood pressure 2021-06-06 15:50:00 130 mm[Hg] [facility] - systolic [facility] blood pressure 2021-06-06 15:50:00 70 mm[Hg] [facility] - diastolic [facility] Systolic blood 2021-05-15 20:07:00 140 mm[Hg] Univer sity of pressure [facility] Diastolic blood 2021-05-15 20:07:00 90 mm[Hg] Unive rsity of pressure [facility] Heart rate 2021-05-15 20:07:00 105 /min [facility] Body height 2021-05-15 20:07:00 154.9 cm [facility] Body weight 2021-05-15 20:07:00 74.844 kg [facility] BMI 2021-05-15 20:07:00 31.18 kg/m2 [facility] Procedures Procedure Date / Time Performed Performing Clinician Sour e POCT SARS-COV-2 2023-05-02 22:10:00 Natalia Vásquez [place] ANTIGEN (BINAX NOW) Medical Bran ch POCT SARS-COV-2 2023-04-02 18:54:00 Lv Wolf Knott o [facility] ANTIGEN (BINAX NOW) Medical Bran CT ABDOMEN PELVIS W 2023-02-15 22:28:42 Hakan Conti [facility] CONTRAST [facility] Branch LIPASE 2023-02-15 21:08:00 Hakan Conti [facility] MAGNESIUM 2023-02-15 21:08:00 Hakan Conti Barbara [facility] TROPONIN I 2023-02-15 21:08:00 Hakan Conti Barbara [facility] COMP. METABOLIC PANEL 2023-02-15 21:08:00 Hakan Conti [facility] ([id number]) [facility] [place] CBC WITH DIFF 2023-02-15 21:08:00 Hakan Conti [facility] URINALYSIS 2023-02-15 21:08:00 Hakan Conti [facility] ASSIGNMENT OF BENEFITS 2023-02-15 20:57:48 Doctor Unassigned, No [facility] NOTICE OF PRIVACY 2023-02-15 19:28:07 Doctor Unassigned, No [facility] Branch CONSENT/REFUSAL FOR 2023-02-15 19:27:07 Doctor Unassigned, No [facility] DIAGNOSIS AND [facility] Medical Branch TREATMENT POCT SARS-COV-2 2022-12-05 20:09:00 Arcenio Napoles [facility] ANTIGEN (BINAX NOW) Medical Bran [facility] PATIENT FINANCIAL 2022-12-05 19:44:23 Doctor Unassigned, No [facility] POLICY [facility] Branch ASSIGNMENT OF BENEFITS 2022-05-30 16:28:29 Doctor Unassigned, No [facility] CT ABDOMEN PELVIS WO 2022-01-05 17:20:35 Gary Gonzalez [facility] CONTRAST [facility] XR KUB 2022-01-05 16:21:08 Gary Gonzalez [facility] POCT TEST 2022-01-05 16:08:00 Gary Gonzalez [facility] LIPASE 2022-01-05 16:06:00 Gary Gonzalez [facility] HEPATIC FUNCTION PANEL 2022-01-05 16:06:00 Gary Gonzalez [facility] ([id number]) Medical Branch (ALB,T.PRO,BILI T,BU/BC,ALT,AST,ALK PHOS) BASIC METABOLIC PANEL 2022-01-05 16:06:00 Gary Gonzalez [facility] (NA, K, CL, CO2, Medical Branch GLUCOSE, BUN, CREATININE, CA) CBC WITH DIFF 2022-01-05 16:06:00 [facility] URINALYSIS 2022-01-05 16:06:00 [facility] CONSENT/REFUSAL FOR 2022-01-05 15:43:39 Doctor Unassigned, No Un [facility] DIAGNOSIS AND Name Medical Branch TREATMENT Encounters Start End Encounter Admission Attending Care Care Encounter Source Date/Time Date/Time Type Type Clinicians Facility Department ID 2022-10-03 Outpatient Higgins, STLMLC STLMLC [id number] Common 08:13:00 [facility] [address] [facility] 2022-07-02 Outpatient Higgins, STLMLC STLMLC [id number] Common 10:13:01 [facility] 23092 [facility] 2022-06-12 Outpatient Higgins, STLMLC STLMLC [id number] Common 09:17:00 Brandee 17141 [facility] 2021-09-20 Outpatient Higgins, STLMLC STLMLC [id number] Common 14:00:52 Brandee 52817 [facility] 2021-09-20 Outpatient Higgins, STLMLC STLMLC [id number] Common 13:53:20 Brandee 59821 [facility] 2021-09-20 Outpatient Higgins, STLMLC [facility] [id number] Common 13:19:51 Brandee 91938 [facility] 2021-09-20 Outpatient Higgins, STLMLC [facility] [id number] Common 13:14:31 Brandee 22441 [facility] 2021-09-20 Outpatient Higgins, STLC [facility] [id number] Common 12:50:04 Brandee 93146 [facility] 2021-09-20 Outpatient Higgins, [facility] [id number] Common 12:48:36 Brandee 11232 [facility] 2021-06-26 Emergency [facility] [id number] Univers 17:19:59 ity of [facility] 2021-06-26 Emergency [facility] [id number] Univers 08:32:13 ity of [facility] 2021-06-26 Emergency [facility] [id number] Univers 02:13:21 ity of [facility] 2021-06-25 Emergency [facility] [id number] Univers 21:06:07 ity of [facility] 2021-06-25 Emergency [facility] [id number] Univers 12:29:01 ity of [facility] 2021-06-25 Emergency [facility] [id number] Univers 01:51:21 ity [facility] 2023-05-02 2023-05-02 Urgent Natalia Vásquez [facility] 1.2.840.114 [id number] Univers 16:40:00 17:00:00 Care Unknown, Attending HEALTH [id number] ity [facility] 4.2.7.2.686 Eddie as ROMEO?BLEA [id number] [address] MEDICAL OFFICE BUILDING 2023-05-02 2023-05-02 Outpatient Chet VÁSQUEZ [facility] [id number] Univers 16:40:00 16:40:00 [facility] 2023-04-02 2023-04-02 Outpatient Chet WOLF [facility] [id number] Univers 12:40:00 14:01:19 REENU ity [facility] 2023-04-02 2023-04-02 Urgent Lv Wolf [facility] 1.2.840.11 [id number] Univers 12:40:00 14:01:19 Care Unknown, Attending HEALTH [id number] ity of [place] 4.2.7.2.686 Eddie as ROMEO?BLEA [id number] [place] dic[place] [address] MEDICAL OFFICE BUILDING 2023-02-15 2023-02-15 Emergency X Hakan CONTI [facility] ERT [id number] Univers 14:40:00 21:46:00 ity of [facility] 2023-02-15 2023-02-15 Emergency Hakan Conti [facility] 1.2.840.114 [id number] Univers 14:40:00 21:46:00 Barbara B[place] [id number] i ty of [place] [id number] [facility] [address] [place] 2022-12-05 2022-12-05 Outpatient R YESIKA [facility] [id number] Univers 14:40:00 15:18:01 ARCENIO ity [facility] 2022-12-05 2022-12-05 Urgent Arcenio Napoles [facility] 1.2.840.11 [id number] Univers 14:40:00 15:18:01 Care Unknown, Attending [facility] [id number] ity of [place] 4.2.7.2.686 Eddie as ROMEO?BLEA [phone] [address] MEDICAL OFFICE BUILDING 2022-12-05 2022-12-05 Orders Doctor MAE 1.2.840.114 [id number] Univers 00:00:00 00:00:00 Only Unassigned, ERICA [id number] ity of [place] [facility] 4.2.7.2.686 Eddie as [phone] [facility] [address] [place] 2022-07-04 2022-07-04 [facility] [id number] Co mmon 00:00:00 00:00:00 VISIT Spirit ESTAB PT - CHI LEVEL 4 [facility] 2022-05-30 2022-05-30 Urgent Melissa Yancey [facility] 1.2.840.114 [id number] Univers 13:00:00 13:20:00 [facility] [id number] ity of [place] [id number] Eddie as ROMEO?BLEA [id number] [address] MEDICAL OFFICE BUILDING 2022-05-30 2022-05-30 Outpatient R ANDRIY [facility] [id number] Univers 13:00:00 13:00:00 MELISSA [facility] 2022-05-30 2022-05-30 Orders Doctor MAE 1.2.840.114 [id number] Univers 00:00:00 00:00:00 Only Unassigned, ERICA [id number] ity of [facility] [id number] Eddie as [phone] [address] 2022-05-03 2022-05-03 (TEL) STLMLC STLMLC [id number] Co mmon 00:00:00 00:00:00 [facility] - [facility] 2022-03-14 2022-03-14 OFFICE STLMLC STLMLC [id number] Co mmon 00:00:00 00:00:00 VISIT Spirit ESTAB PT - CHI LEVEL 4 [facility] 2022-03-14 2022-03-14 (TEL) STLMLC STLMLC [id number] Co mmon 00:00:00 00:00:00 [facility] - [facility] 2022-03-14 2022-03-14 SUB ANNUAL STLMLC STLMLC [id number] Common 00:00:00 00:00:00 [facility] Spirit WELLNESS - CHI VISIT [facility] 2022-01-16 2022-01-16 Outpatient R VEL [facility] [id number] Univers 16:00:00 16:03:05 SHINEANCA [facility] 2022-01-16 2022-01-16 Urgent Natalia Vásquez [facility] 1.2.840.114 [id number] Univers 16:00:00 16:03:05 Savita Mancilla [facility] [id number] ity [facility] 4.2.7.2.686 Eddie as ROMEO?BLEA [id number] Me [address] MEDICAL OFFICE BUILDING 2022-01-05 2022-01-05 Emergency X DOMINIQUE, [facility] ERT [id number] Univers 10:54:00 13:07:00 CYNVICENTE ity [facility] 2022-01-05 2022-01-05 Emergency Dominique, [facility] 1.2.182.200 [id number] Univers 10:54:00 13:07:00 Cynvicente [place] 350.1.13.10 i ty [place] [id number] [address] 2021-12-28 2021-12-28 Outpatient R VEL [facility] [id number] Univers 13:20:00 13:20:00 NATALIA ity [facility] 2021-12-13 2021-12-13 OFFICE STLMLC STLMLC [id number] Co mmon 00:00:00 00:00:00 VISIT Spirit ESTAB PT - CHI LEVEL 4 [facility] 2021-09-06 2021-09-06 OFFICE STLMLC STLMLC [id number] Co mmon 00:00:00 00:00:00 VISIT EST Spir it PT LEVEL 3 - [facility] 2021-08-14 2021-08-14 Laboratory Only, Ang Db Test [facility] 1.2.8 40.114 [id number] Univers 15:45:00 16:00:00 Only Fidencio Perez [facility] [id number] ity [facility] 4.2.7.2.686 Eddie as ROMEO?BLEA [id number] [address] MEDICAL OFFICE BUILDING 2021-08-14 2021-08-14 Outpatient R BILL [facility] [id number] Univers 15:45:00 15:54:14 FIDENCIO arboleda o f [facility] 2021-08-01 2021-08-01 (TEL) STLMLC STLMLC [id number] Co mmon 00:00:00 00:00:00 [facility] - [facility] 2021-06-15 2021-06-15 (TEL) STLMLC STLC [id number] Co mmon 00:00:00 00:00:00 [facility] - [facility] 2021-06-12 2021-06-12 Outpatient [facility] [id number] Univers 13:30:00 13:30:00 [facility] 2021-06-06 2021-06-06 OFFICE STLMLC STLMLC [id number] Co mmon 00:00:00 00:00:00 VISIT Spirit ESTAB PT - CHI LEVEL 4 [facility] 2021-06-05 2021-06-05 Outpatient Chet [facility] [id number] Univers 13:30:00 13:30:00 [facility] 2021-05-15 2021-05-15 [facility] 1.2.840.114 [id number] Univers 15:01:19 15:16:19 Visit [facility] [id number] it y of [place] 4.2.7.2.686 Eddie as Romeo?Blea [phone] [facility] [address] [facility] Office [facility] 2021-05-15 2021-05-15 Outpatient Chet [facility] [id number] Univers 15:00:00 15:00:00 [facility] 2021-05-10 2021-05-10 Outpatient [facility]t [facility] [id number] Univers 13:00:00 13:00:00 [facility] 2021-04-19 2021-04-19 [facility] 1.2.840.114 [id number] Univers 15:25:00 23:59:00 Encounter [facility] [id number] ity of [place] 4.2.7.2.686 Eddie as Romeo?Blea [phone] [facility] [address] [place] Medical Office [facility] 2021-04-19 2021-04-19 Outpatient Chet [facility] [id number] Univers 15:25:00 23:59:00 [facility] 2021-04-19 2021-04-19 Office Jenna Hidalgo [facility] 1.2.840.114 [id number] Univers 15:16:01 17:12:29 Visit Jason Perkins [facility] [id number] [place] 4.2.7.2.686 Eddie as Romeo?Blea [phone] [place] [address] Medical Office Building 2021-02-21 2021-02-21 Outpatient STLMLC STLMLC [id number] Common 00:00:00 00:00:00 [facility] 2021-02-21 2021-02-21 Outpatient STLMLC STLMLC [id number] Common 00:00:00 00:00:00 [facility] 2021-02-08 2021-02-08 Outpatient STLMLC STLMLC [id number] Common 00:00:00 00:00:00 [facility] 2021-02-06 2021-02-06 Outpatient STLMLC STLMLC [id number] Common 00:00:00 00:00:00 [facility] 2021-01-20 2021-01-20 Outpatient Chet HIDALGO [facility] [id number] Univers 08:30:00 08:30:00 JENNA [facility] 2021-01-02 2021-01-02 Outpatient STLMLC STLMLC [id number] Common 00:00:00 00:00:00 [facility] 2020-12-21 2020-12-21 Outpatient Chet ANDERSON [facility] [id number] Univers 13:30:00 13:30:00 CARLOS [facility] 2020-12-12 2020-12-12 Outpatient STLMLC STLMLC [id number] Common 00:00:00 00:00:00 [facility] 2020-12-12 2020-12-12 Outpatient STLMLC STLMLC [id number] Common 00:00:00 00:00:00 [facility] 2020-12-06 2020-12-06 Emergency [facility] [id number] 09:33:00 10:58:00 Boby Paz 350.1.13.10 [place] 4.2.7.2.686 [place] [id number] [id number] 2020-11-29 2020-11-29 Outpatient STLMLC STLMLC [id number] Common 00:00:00 00:00:00 [facility] 2020-11-10 2020-11-10 Patient Sanjay [facility] 1.2.840.114 [id number] 00:00:00 00:00:00 Outreach [facility] 350.1.13.10 [facility] 4.2.7.2.686 PAVILLI [id number] 2020-10-22 2020-10-22 Emergency Dionne Sierra [facility] 1.2.840 .114 [id number] 13:44:00 16:22:00 Tori Shaw 350.1.13.1 0 [place] 4.2.7.2.686 [place] [id number] 2020-01-07 2020-01-07 Telephone Bill, [facility] 1.2.840.114 [id number] 00:00:00 00:00:00 Fidencio Health 350.1.13.10 [place] 4.2.7.2.686 Professio [id number] nal [address] One 2019-11-03 2019-11-03 Telephone [facility] [id number] [id number] 00:00:00 00:00:00 Kaylah A Health 350.1.13.10 [place] 4.2.7.2.686 Professio [id number] nal [facility] Office [address] 2019-11-02 2019-11-02 Outpatient R RADIOLOGY [facility] [id number] Univers 15:39:02 23:59:00 ity of [facility] 2019-11-02 2019-11-02 Hospital Radiology [facility] 1.2.840.114 [id number] 15:30:00 23:59:00 Encounter [place] 350.1.13.10 [place] 4.2.7.2.686 [place] [id number] 2019-11-02 2019-11-02 Orders Doctor WALL 1.2.840.114 [id number] 00:00:00 00:00:00 Only Unassigned, ERICA 350.1.13.10 [place] [facility] 4.2.7.2.686 [id number] 2019-10-28 2019-10-28 Office [facility] 1.2.840.114 [id number] 15:11:42 15:59:11 Visit Kaylah Murcia 350.1.13.10 [place] 4.2.7.2.686 Profelliottio [id number] nal 0[address] 2019-10-28 2019-10-28 Outpatient R [facility] [id number] Univers 15:20:00 15:20:00 KAYLAH [facility] 2019-10-26 2019-10-26 Emergency X [facility] ERT [id number] Univers 16:50:10 19:30:00 BOBY [facility] 2019-05-18 2019-05-18 Emergency [facility] ERT [id number] Univers 12:49:44 15:02:00 ANDREW [facility] Results Test Description Test Time Test Comments Results Result Comments Source POCT SARS-COV-2 ANTIGEN (BINAX NOW) 2023-05-02 22:10:00 Test Item Value Reference Range Interpretation Comme nts POCT SARS-COV-2 ANTIGEN (test code = 31188-1) Not Detected Not Dete cted On board controls acceptable with C Line (test code = Yes 3574) [facility] (BINAX NOW)2023-04-02 18:54:00 Test Item Value Reference Range Interpretation Comments POCT SARS-COV-2 ANTIGEN Not Detected Not Detected (test code = 59139-6) On board controls Yes acceptable with C Line (test code = 3574) BRITTANY (test code = BRITTANY) accurate development and interpretation of all internal controls Lab Interpretation Normal (test code = 30929-6) [facility] [id number] 22:50:48 Test Item Value Reference Range Interpretation Comments TROPONIN I (test code = 0.000 ng/mL <=0.034 8608265824) BRITTANY (test code = BRITTANY) Reference (Normal) Range (defined by the 99th percentile reference limit): <= 0.034 ng/mL Note: Cardiac troponin begins to rise 3-4 hours after the onset of ischemia. Repeat in 4-6 hours if the sample was drawn within 3-4 hours of the onset of the symptom and found normal. Diagnosis of myocardial injury is made with acute changes in cTn concentrations with at least one serial sample above the 99th percentile upper reference limit (URL), taken together with the patient's clinical presentation. Biotin has been reported to cause a negative bias, interpret results relative to patient's use of biotin. Lab Interpretation Normal (test code = 80698-2) [facility]2023-[facility]-23 22:41:08 Test Item Value Reference Range Interpretation Comments MAGNESIUM (test code = 2378942614) 1.9 mg/dL 1.7-2.4 Lab Interpretation (test code = Normal 98165-5) [facility] METABOLIC PANEL (41236)2023-02-15 22:41:07 Test Item Value Reference Range Interpretation Comments NA (test code = 140 mmol/L 135-145 8399031997) K (test code = 4.3 mmol/L 3.5-5.0 0122388709) CL (test code = 105 mmol/L 98-108 1087615569) CO2 TOTAL (test code = 25 mmol/L 23-31 9961485163) AGAP (test code = 10 2-16 9800224092) BUN (test code = 16 mg/dL 7-23 9781066091) GLUCOSE (test code = 68 mg/dL 70-110 L 4308351647) CREATININE (test code = 0.63 mg/dL 0.50-1.04 4577635655) TOTAL BILI (test code = 0.5 mg/dL 0.1-1.5 3412371250) CALCIUM (test code = 9.2 mg/dL 8.6-10.6 5667317642) T PROTEIN (test code = 7.5 g/dL 6.3-8.2 4272763331) ALBUMIN (test code = 4.5 g/dL 3.5-5.0 0948301866) ALK PHOS (test code = 73 U/L 34-122 1878729634) ALTv (test code = 42 U/L 5-35 H 1742-6) AST(SGOT) (test code = 31 U/L 13-40 6845381004) eGFR (test code = 101.3 mL/min/1.73m2 6866379694) BRITTANY (test code = BRITTANY) Association of Glomerular Filtration Rate (GFR) and Staging of Kidney Disease* + --+ --+ ------+| GFR (mL/min/1.73 m2) ?| With Kidney Damage ?| ?Without Kidney Damage+ --------+ --------+ +| ?>90 ?| ?Stage one ?| ? Normal ?+ ---+ ---+ -------+| ?60-89 ?| ?Stage two ?| ? Decreased GFR ? + --+ --+ ------+| ?30-59 ?| ?Stage three ?| ? Stage three ? + --+ --+ ------+| ?15-29 ?| ?Stage four ? | ? Stage four ?+ ---+ ---+ -------+| ?<15 (or dialysis) ? ?| ?Stage five ? | ? Stage five ?+ ---+ ---+ -------+ *Each stage assumes the associated GFR [...] or abnormalities in imaging tests). Lab Interpretation Abnormal (test code = 71209-6) [facility]23 22:40:52 Test Item Value Reference Range Interpretation Comments LIPASE (test code = 2990170062) 106 U/L 0-220 Lab Interpretation (test code = Normal 23398-6) [facility] WITH [id number] 22:26:28 Test Item Value Reference Range Interpretation Comments WBC (test code = 6.47 See_Comment [Automated 1790-2) message] The sy stem which generated this result transmitted reference range : 4.30 - 11.10 10*3/?L. The reference range was not used to interpret this result as normal/abnormal . RBC (test code = 4.70 See_Comment [Automated 789-8) message] The sy stem which generated this result transmitted reference range : 3.93 - 5.25 10*6/?L. The reference range was not used to interpret this result as normal/abnormal . HGB (test code = 14.3 g/dL 11.6-15.0 718-7) HCT (test code = 42.8 % 35.7-45.2 4544-3) MCV (test code = 91.1 fL 80.6-95.5 787-2) MCH (test code = 30.4 pg 25.9-32.8 785-6) MCHC (test code = 33.4 g/dL 31.6-35.1 786-4) RDW-SD (test code = 42.1 fL 39.0-49.9 41174-4) RDW-CV (test code = 12.7 % 12.0-15.5 788-0) PLT (test code = 257 See_Comment [Automated 777-3) message] The sy stem which generated this result transmitted reference range : 166 - 358 10*3/ ?L. The reference r tae was not used to interpret this result as normal/abnormal . MPV (test code = 11.1 fL 9.5-12.9 17698-1) NRBC/100 WBC (test 0.0 See_Comment [Automat ed code = 2293051536) message] The system which generated this result transmitted reference range : 0.0 - 10.0 /100 WBCs. The refer ence range was not u sed to interpret th is result as normal/abnormal . NRBC x10^3 (test code See_Comment [Auto mated = 9501410012) message] The s ystem which generated this result transmitted reference range : 10*3/?L. The reference range was not used to interpret this result as normal/abnormal . GRAN MAT (NEUT) % 52.3 % (test code = 770-8) IMM GRAN % (test code 0.50 % = 0284771567) LYMPH % (test code = 32.5 % 736-9) MONO % (test code = 9.1 % 5905-5) EOS % (test code = 4.2 % 713-8) BASO % (test code = 1.4 % 706-2) GRAN MAT x10^3(ANC) 3.39 10*3/uL 1.88-7.09 (test code = 2428742350) IMM GRAN x10^3 (test 0.03 10*3/uL 0.00-0.06 code = 5887819600) LYMPH x10^3 (test code 2.10 10*3/uL 1.32-3.29 = 731-0) MONO x10^3 (test code 0.59 10*3/uL 0.33-0.92 = 742-7) EOS x10^3 (test code = 0.27 10*3/uL 0.03-0.39 711-2) BASO x10^3 (test code 0.09 10*3/uL 0.01-0.07 H = 704-7) Lab Interpretation Abnormal (test code = 22099-7) [facility] SARS-COV-2 ANTIGEN (BINAX NOW)2022-12-05 20:09:00 Test Item Value Reference Range Interpretation Comments POCT SARS-COV-2 ANTIGEN (test Not Detected Not Detected code = 26379-0) On board controls acceptable Yes with C Line (test code = 3574) Lab Interpretation (test code = Normal 54088-4) [facility] METABOLIC PANEL (NA, K, CL, CO2, GLUCOSE, BUN, CREATININE, CA)2022-01-05 16:31:47 Test Item Value Reference Range Interpretation Comments NA (test code = 142 mmol/L 135-145 4908075021) K (test code = 4.2 mmol/L 3.5-5.0 5828829757) CL (test code = 109 mmol/L 98-108 H 6378203730) CO2 TOTAL (test code = 22 mmol/L 23-31 L 7552667701) AGAP (test code = 2-16 9221233581) BUN (test code = 12 mg/dL 7-23 2561924239) GLUCOSE (test code = 89 mg/dL 70-110 6978579177) CREATININE (test code = 0.75 mg/dL 0.50-1.04 7442057385) CALCIUM (test code = 8.9 mg/dL 8.6-10.6 5719452288) eGFR (test code = mL/min/1.73m2 2937772432) BRITTANY (test code = BRITTANY) Association of Glomerular Filtration Rate (GFR) and Staging of Kidney Disease* + --+ --+ ------+| GFR (mL/min/1.73 m2) ?| With Kidney Damage ?| ?Without Kidney Damage+ --------+ --------+ +| ?>90 ?| ?Stage one ?| ? Normal ?+ ---+ ---+ -------+| ?60-89 ?| ?Stage two ?| ? Decreased GFR ? + --+ --+ ------+| ?30-59 ?| ?Stage three ?| ? Stage three ? + --+ --+ ------+| ?15-29 ?| ?Stage four ? | ? Stage four ?+ ---+ ---+ -------+| ?<15 (or dialysis) ? ?| ?Stage five ? | ? Stage five ?+ ---+ ---+ -------+ *Each stage assumes the associated GFR [...] or abnormalities in imaging tests). Lab Interpretation Abnormal (test code = 17463-1) [facility] (ALB,T.PRO,BILI T,BU/BC,ALT,AST,ALK PHOS)2022-01-05 16:31:47 Test Item Value Reference Range Interpretation Comments TOTAL BILI (test code = 0323431628) 0.4 mg/dL 0.1-1.1 BILI UNCON (test code = 1707315153) 0.2 mg/dL 0.1-1.1 BILI CONJ (test code = 4390450010) 0.0 mg/dL 0.0-0.3 T PROTEIN (test code = 6920003597) 7.1 g/dL 6.3-8.2 ALBUMIN (test code = 1649822473) 4.4 g/dL 3.5-5.0 ALK PHOS (test code = 6314291505) 68 U/L 34-122 ALTv (test code = 1742-6) 21 U/L 5-35 AST(SGOT) (test code = 5995534914) 22 U/L 13-40 Lab Interpretation (test code = Normal 71648-4) [facility] 16:31:47 Test Item Value Reference Range Interpretation Comments LIPASE (test code = 6956654014) 123 U/L 0-220 Lab Interpretation (test code = Normal 15436-1) [facility] [id number] 16:18:07 Test Item Value Reference Range Interpretation Comments WBC (test code = See_Comment [Automated 1427-2) message] The sy stem which generated this result transmitted reference range : 4.30 - 11.10 10*3/?L. The reference range was not used to interpret this result as normal/abnormal . RBC (test code = See_Comment [Automated 207-8) message] The sy stem which generated this [...] RDW-SD (test code = 41.6 fL 39.0-49.9 47268-6) RDW-CV (test code = 12.6 % 12.0-15.5 788-0) PLT (test code = See_Comment [Automated 057-3) message] The sy stem which generated this result transmitted reference range : 166 - 358 10*3/ ?L. The reference r tae was not used to interpret this result as normal/abnormal . MPV (test code = 10.4 fL 9.5-12.9 63310-8) NRBC/100 WBC (test See_Comment [Automat ed code = 7412567471) message] The system which generated this result transmitted reference range : 0.0 - 10.0 /100 WBCs. The refer ence range was not u sed to interpret th is result as normal/abnormal . NRBC x10^3 (test code <0.01 See_Comment [Auto mated = 7660386789) message] The s ystem which generated this result transmitted reference range : 10*3/?L. The reference range was not used to interpret this result as normal/abnormal . GRAN MAT (NEUT) % 53.5 % (test code = 770-8) IMM GRAN % (test code 0.60 % = 0171834268) LYMPH % (test code = 28.5 % 736-9) MONO % (test code = 8.6 % 5905-5) EOS % (test code = 7.7 % 713-8) BASO % (test code = 1.1 % 706-2) GRAN MAT x10^3(ANC) 3.35 10*3/uL 1.88-7.09 (test code = 6022345002) IMM GRAN x10^3 (test 0.04 10*3/uL 0.00-0.06 code = 8562679399) LYMPH x10^3 (test code 1.79 10*3/uL 1.32-3.29 = 731-0) MONO x10^3 (test code 0.54 10*3/uL 0.33-0.92 = 742-7) EOS x10^3 (test code = 0.48 10*3/uL 0.03-0.39 H 711-2) BASO x10^3 (test code 0.07 10*3/uL 0.01-0.07 = 704-7) Lab Interpretation Abnormal (test code = 27632-5) [facility] [id number] 16:08:00 Test Item Value Reference Range Interpretation Comments POCT PREG (test code = 1605) Negative On board controls acceptable with Present C Line (test code = 3574) POCT PREG LOT # (test code = 3575) [id number] POCT PREG TEST DATE (test 05/25/2023 code = 3576) Lab Interpretation (test code = Normal 67513-0) [facility]"
[2023-05-16 13:57] LABS: Absolute Lymphocytes (CBC) 1.7 K/uL (0.7-4.9); Lymphocytes % 21.1 % (15.3-44.8); MCV 89.7 fL (80-100); MPV 8.6 fL (7.6-11.3); Platelets 253 thou/uL (152-406)
[2023-05-16 14:25] LABS: Potassium 3.4 mEq/L (3.5-5.1); Troponin High Sensitivity 3.8 pg/mL (<58.9)
--- NOTE | 2023-05-16 14:33 | RAD REPORT ---
EXAM DESCRIPTION: RADChest Single View05/16/2023 2:14 pm CLINICAL HISTORY: CHEST PAIN COMPARISON: Chest Single View dated 07/29/2022; Chest Pa And Lat (2 Views) dated 05/18/2022; Chest Sin gle View dated 11/01/2020; Chest Single View dated 07/27/2019 TECHNIQUE: Portable AP view of the chest. FINDINGS: The lungs are clear. No pneumothorax or effusion. The cardiomediastinal contours are unre markable. IMPRESSION: No acute cardiopulmonary process.
--- NOTE | 2023-05-16 15:50 | ER ---
Nurse's Notes [facility] Name: Joy Strauss Age: 47 yrs Sex: Female : 1975 Arrival Date: 05/16/2023 Time: 13:23 Bed Treatment Private MD: Diagnosis: Chest pain, unspecified Presentation: 05/16 13:30 Chief complaint: Patient states: Intermittent chest pain X 1 day. Pt reports pain ld1 radiating down left arm. Coronavirus screen: At this time, the client does not indicate any symptoms associated with coronavirus-19. Ebola Screen: No symptoms or risks identified at this time. Initial Sepsis Screen: Does the patient meet any 2 criteria? No. Patient's initial sepsis screen is negative. Does the patient have a suspected source of infection? No. Patient's initial sepsis screen is negative. Risk Assessment: Do you want to hurt yourself or someone else? Patient reports no desire to harm self or others. Onset of symptoms was May 16, 2023. 13:30 Method Of Arrival: Ambulatory ld1 13:30 Acuity: FÉLIX 3 ld1 Triage Assessment: 13:31 General: Appears in no apparent distress. uncomfortable, Behavior is cooperative, ld1 anxious. Pain: Complains of pain in chest Pain radiates to left arm Pain currently is 4 out of 10 on a pain scale. at worst was 10 out of 10 on a pain scale. Quality of pain is described as throbbing, Pain began 1 day ago. Is intermittent. EENT: No signs and/or symptoms were reported regarding the EENT system. Neuro: Level of Consciousness is awake, alert, obeys commands, Oriented to person, place, time, situation. Cardiovascular: Capillary refill < 3 seconds Patient's skin is warm and dry. Respiratory: Airway is patent Respiratory effort is even, unlabored. GI: Abdomen is round non-distended. : No signs and/or symptoms were reported regarding the genitourinary system. Derm: No signs and/or symptoms reported regarding the dermatologic system. Musculoskeletal: No signs and/or symptoms reported regarding the musculoskeletal system. 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 - Social history:: Smoking status: Patient denies any tobacco usage or history of. Patient/guardian denies using alcohol. - Family history:: not pertinent. Screenin:[facility] ED Fall Risk Assessment (Adult) History of falling in the last 3 months, ld1 including since admission No falls in past 3 months (0 pts) Confusion or Disorientation No (0 pts) Intoxicated or Sedated No (0 pts) Impaired Gait No (0 pts) Mobility Assist Device Used No (0 pt) Altered Elimination No (0 pt) Score/Fall Risk Level 0 - 2 = Low Risk Oriented to surroundings, Maintained a safe environment, Hourly rounding (assess needs \T\ fall precautionary measures) done. Abuse screen: Denies threats or abuse. Denies injuries from another. Nutritional screening: No deficits noted. Tuberculosis screening: No symptoms or risk factors identified. Vital Signs: 13:30 BP 155 / 97; Pulse 93; Resp 18; Temp 98.1(TE); Pulse Ox 94% on R/A; Weight 86.18 kg; ld1 Height 5 ft. 0 in. ; Pain 4/10; 16:11 BP 133 / 66; Pulse 90; Resp 18; Pulse Ox 100% on R/A; ld1 13:30 Body Mass Index 37.11 (86.18 kg, 152.4 cm) ld1 13:30 Pain Scale: Adult ld1 ED Course: 13:25 Patient arrived in ED. im 13:31 Triage completed. ld1 13:31 Arm band placed on right wrist. ld1 13:43 Gareth Lopez MD is Attending Physician. cp3 13:57 Basic Metabolic Panel Sent. bc6 13:57 CBC with Diff Sent. bc6 13:57 Troponin HS Sent. bc6 13:57 Missed attempt(s): 22 gauge in right forearm. bc6 14:13 XRAY Chest (1 view) In Process Unspecified. EDMS 15:49 Renard Barbour MD is Referral Physician. cp3 16:10 Patient has correct armband on for positive identification. Provided Education on: ED ld1 process and procedures. . 16:11 No provider procedures requiring assistance completed. Patient did not have IV access ld1 during this emergency room visit. Patient maintains SpO2 saturation greater than 95% on room air. Administered Medications: No medications were administered Medication: 16:10 VIS not applicable for this client. ld1 Outcome: 15:50 Discharge ordered by . cp3 16:11 Discharged to home ambulatory, with family, ld1 16:11 Condition: stable 16:11 Discharge instructions given to patient, Instructed on discharge instructions, follow up and referral plans. Demonstrated understanding of instructions, follow-up care, 16:12 Patient left the ED. ld1 Signatures: Dispatcher [employer] Gareth Meade MD MD cp3 Antionette Padilla RN RN ld1 Irma Grewal 6 Liliana Leslie
--- NOTE | 2023-05-16 15:50 | EDPHYS ---
Physician Documentation [facility] Name: Joy Strauss Age: 47 yrs Sex: Female : 1975 Arrival Date: 05/16/2023 Time: 13:23 Bed Treatment Private MD: ED Physician Gareth Lopez HPI: 05/16 16:21 This 47 yrs old Female presents to ER via Ambulatory with complaints of Chest Pain. cp3 16:21 The patient is a 47-year-old female with a history of asthma, chronic back pain, DJD, cp3 lupus who presents to the ED with 2 days of left-sided chest discomfort. Patient describes pain as 2 out of 10 aching and throbbing with radiation to the left arm. Patient denies fever, chills, nausea, vomiting. Patient denies coronary disease. 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 - Social history:: Smoking status: Patient denies any tobacco usage or history of. Patient/guardian denies using alcohol. - Family history:: not pertinent. ROS: 16:21 Constitutional: Negative for fever, chills, and weight loss, Eyes: Negative for injury, cp3 pain, redness, and discharge, ENT: Negative for injury, pain, and discharge, Neck: Negative for injury, pain, and swelling, Respiratory: Negative for shortness of breath, cough, wheezing, and pleuritic chest pain, Abdomen/GI: Negative for abdominal pain, nausea, vomiting, diarrhea, and constipation, MS/Extremity: Negative for injury and deformity, Skin: Negative for injury, rash, and discoloration, Neuro: Negative for headache, weakness, numbness, tingling, and seizure, Psych: Negative for depression, anxiety, suicide ideation, homicidal ideation, and hallucinations, Allergy/Immunology: Negative for hives, rash, and allergies, Endocrine: Negative for neck swelling, polydipsia, polyuria, polyphagia, and marked weight changes, Hematologic/Lymphatic: Negative for swollen nodes, abnormal bleeding, and unusual bruising, 16:21 Cardiovascular: Positive for chest pain, 16:21 Cardiovascular: Positive for 16:21 Cardiovascular: Positive for chest pain, of the chest, Exam: 16:21 Constitutional: This is a well developed, well nourished patient who is awake, alert, cp3 and in no acute distress. Head/Face: Normocephalic, atraumatic. Eyes: Pupils equal round and reactive to light, extra-ocular motions intact. Lids and lashes normal. Conjunctiva and sclera are non-icteric and not injected. Cornea within normal limits. Periorbital areas with no swelling, redness, or edema. ENT: Nares patent. No nasal discharge, no septal abnormalities noted. Tympanic membranes are normal and external auditory canals are clear. Oropharynx with no redness, swelling, or masses, exudates, or evidence of obstruction, uvula midline. Mucous membranes moist. Neck: Trachea midline, no thyromegaly or masses palpated, and no cervical lymphadenopathy. Supple, full range of motion without nuchal rigidity, or vertebral point tenderness. No Meningismus. Chest/axilla: Normal chest wall appearance and motion. Nontender with no deformity. No lesions are appreciated. Cardiovascular: Regular rate and rhythm with a normal S1 and S2. No gallops, murmurs, or rubs. Normal PMI, no JVD. No pulse deficits. Respiratory: Lungs have equal breath sounds bilaterally, clear to auscultation and percussion. No rales, rhonchi or wheezes noted. No increased work of breathing, no retractions or nasal flaring. Abdomen/GI: Soft, non-tender, with normal bowel sounds. No distension or tympany. No guarding or rebound. No evidence of tenderness throughout. Back: No spinal tenderness. No costovertebral tenderness. Full range of motion. Skin: Warm, dry with normal turgor. Normal color with no rashes, no lesions, and no evidence of cellulitis. MS/ Extremity: Pulses equal, no cyanosis. Neurovascular intact. Full, normal range of motion. Neuro: Awake and alert, GCS 15, oriented to person, place, time, and situation. Cranial nerves II-XII grossly intact. Motor strength 5/5 in all extremities. Sensory grossly intact. Cerebellar exam normal. Normal gait. Psych: Awake, alert, with orientation to person, place and time. Behavior, mood, and affect are within normal limits. Vital Signs: 13:30 BP 155 / 97; Pulse 93; Resp 18; Temp 98.1(TE); Pulse Ox 94% on R/A; Weight 86.18 kg; ld1 Height 5 ft. 0 in. ; Pain 4/10; 16:11 BP 133 / 66; Pulse 90; Resp 18; Pulse Ox 100% on R/A; ld1 13:30 Body Mass Index 37.11 (86.18 kg, 152.4 cm) ld1 13:30 Pain Scale: Adult ld1 Procedures: 16:21 EKG interpreted by me: Normal sinus rhythm rate of 90 no evidence of acute SD. cp3 MDM: 13:43 Patient medically screened. cp3 16:21 Differential diagnosis: abnormal EKG, coronary artery disease chest wall pain, cp3 pleurisy, stable angina, unstable angina. HEART Score: History: Slightly Suspicious (0), ECG: Normal (0), Age: > 45 and < 65 years (1), Risk Factors: 1 or 2 risk factors (1), Troponin: < or = 1 x Normal Limit (0), Total Score = 2. Data reviewed: vital signs, nurses notes. 05/16 13:32 Order name: Basic Metabolic Panel; Complete Time: 15:40 ld1 05/16 13:32 Order name: CBC with Diff; Complete Time: 15:40 ld1 05/16 13:32 Order name: Troponin HS; Complete Time: 15:40 ld1 05/16 13:32 Order name: XRAY Chest (1 view); Complete Time: 15:40 ld1 05/16 13:32 Order name: EKG; Complete Time: 13:33 ld1 05/16 13:32 Order name: EKG - Nurse/Tech; Complete Time: 13:38 ld1 05/16 13:32 Order name: Labs collected and sent; Complete Time: 13:58 ld1 05/16 13:32 Order name: O2 Per Protocol; Complete Time: 13:38 ld1 05/16 13:32 Order name: O2 Sat Monitoring; Complete Time: 13:38 ld1 Administered Medications: No medications were administered Disposition Summary: 05/16/23 15:50 Discharge Ordered Condition: Stable cp3 Diagnosis - Chest pain, unspecified cp3 Followup: cp3 - With: Renard Barbour MD - When: Upon discharge from the Emergency Department - Reason: Recheck today's complaints Discharge Instructions: - Discharge Summary Sheet cp3 - Nonspecific Chest Pain, Adult cp3 - Aspirin and Your Heart cp3 Forms: - Medication Reconciliation Form cp3 - Thank You Letter cp3 - Antibiotic Education cp3 - Prescription Opioid Use cp3 - Patient Portal Instructions cp3 - Leadership Thank You Letter cp3 Signatures: Dispatcher [employer] Gareth Meade MD MD cp3 Antionette Padilla RN RN ld1
[2023-05-16 17:50] VITALS: TEMP 98.1
[2023-05-16 17:51] VITALS: BP 133/66; O2SAT 100
--- NOTE | 2023-05-17 17:13 | EKG ---
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
== END 2023-05-16 16:12 | disposition home or self-care (01) ==
LOC: ER 13:23
DX: R07.89 Other chest pain (principal)
CPT/HCPCS: 36415; 71045; 80048; 84484; 85025; 93005; 99284

== ENCOUNTER 2023-07-15 14:24 | Emergency (ER) | payer OTHER ==
--- OUTSIDE RECORDS SUMMARY | 2023-07-15 14:35 | XMS REPORT | Continuity of Care Document ---
:1975 Author Organization [facility] t Address [address] [place] [address] Care Team Providers Name Role Phone BRANDEE HIGGINS Primary Care Physician Unavailable Brandee Higgins Attending Clinician Unavailable LV WOLF Attending Clinician Unavailable Ryan GRESHAMPLv Attending Clinician Unknown, Attending Attending Clinician Unavailable YANA WANG Attending Clinician Unavailable YANA WANG Attending Clinician Unavailable NATALIA VÁSQUEZ Attending Clinician Unavailable EbrahiNatalia Arnold Attending Clinician Doctor Unassigned, Maybell Attending Clinician Unavailable Etta Solares RN Attending Clinician Unavailable MELISSA YANCEY Attending Clinician Unavailable Melissa Yancey MD Attending Clinician UNKNOWN, ATTENDING Attending Clinician Unavailable Hakan CONTI Attending Clinician Unavailable Hakan Guzman Attending Clinician ARCENIO NAPOLES Attending Clinician Unavailable Arcenio Napoles PA-C Attending Clinician Fidencio Bass Attending Clinician Mary Kay Clayton Attending Clinician GARY GONZALEZ Attending Clinician Unavailable Carlossofya GRESHAMPGary Attending Clinician Only, Ang Db Test Attending [...] Expiration Date S jama MEDICARE PART A [id number] 2006 \\T\\ B 00:00:00 MCCARTY [id number] 2016 HEALTHCARE 00:00:00 MEDICAID MEDICAID [id number] 2011 [place] 00:[place]:00 MED[place] [id number] 2020 Common 00:00:00 [facility] MEDICARE [facility] [id number] 2006 Common 00:00:00 [facility] MEDICAID [id number] 2020 Common 00:00:00 [facility] MEDICARE [facility] [id number] 2006 Common 00:00:00 [facility] HUMANZiggy GOLD PLS [id number] 2019 2020 HMO 00:00:00 00:00:00 Problems Condition Condition Condition Status Onset Resolution Last Treating Co mments Source Name Details Category Date Date Treatment Clinician Date Right Right Disease Active Univers ankle pain ankle pain 9-20 it y of 00:00: [address] Branch Encounter Encounter Disease Active Uni vers for for 5-24 ity [place] [address] [place] [address] Lupus Lupus Problem Common Spirit - [facility] [id number] Body mass Problem Com mon index Spirit [BMI] - [facility] 35.0-35.9, [facility] [id number] Morbid Problem Commo n 9104 (severe) Spirit obesity - [facility] due to [facility] calories [facility] [id number] Uncomplica Problem Com mon olivia opioid Spirit dependence - [facility] [id number] Current Problem Common moderate Spirit episode of - CHI major depressive [facility] disorder Medical without Center prior episode [id number] Bipolar Problem Commo n affective Spirit disorder, - [facility]I currently [facility] [id number] Primary Problem Common insomnia Spirit - [facility] [id number] SPENCER Problem Common (generaliz Spirit ed anxiety - CHI disorder) [facility] [id number] Ulcerative Problem Com mon colitis Spirit [facility] Medica l d location Center [id number] Chronic Problem Common fatigue Spirit - [facility] [id number] Gastroesop Problem Co mmon hageal Spirit reflux - [facility] disease [facility] esophagiti Medica l s Center [id number] Migraine Problem Comm on without Spirit aura and - [facility] without [facility] migrainosu Medica l s, not Center intractabl e [id number] Other Problem Common chronic Spirit pain - [facility] [id number] DDD Problem Common (degenerat Spirit bandar disc - CHI disease), [facility] [id number] Vitamin D Problem Comm on deficiency Spirit - [facility] [id number] Systemic Problem Commo n lupus Spirit erythemato - [facility]I heather, St unspecie [facility] d SLE Medical type, Center unspecifie d organ involvemen t status Allergies, Adverse Reactions, Alerts Allergy Allergy Status Severity Reaction(s) Onset Inactive Treating Comm ents Source Name Type Date Date Clinician NO KNOWN Drug Active Univers ALLERGIE Class ity of S [facility] Social History Social Habit Start Date Stop Date Quantity Comments Source History of Tobacco Common Spirit - Use [facility] Sex Assigned At Common Sp meghana - [facility] Gender identity Universit y of [facility] Sexual orientation Univer sity of [facility] Alcohol intake 2023-07-01 2023-07-01 0 /d University of 00:00:00 00:00:00 [facility] Exposure to 2022-11-25 2022-12-05 Not sure University SARS-CoV-2 (event) 00:00:00 14:43:00 [facility] History of Social 2022-12-05 2022-12-05 Univers ity of function 00:00:00 00:00:00 [facility] Tobacco use and 2016-05-15 2016-05-15 Smokeless Universit y of exposure 00:00:00 00:00:00 tobacco non-user [facility] Smoking Status Start Date Stop Date Source Never smoked tobacco [facility] Medications Ordered Filled Start Stop Current Ordering Indication Dosage Frequency Signature Comments Components Source Medication Medication Date Date Medication? Clinician (SIG) Name Name oseltamivir 2022-08- Yes [id number] 75mg Take 1 Univers (TAMIFLU) 08-3112 capsule by ity of 75 mg 00:00: 05:59 mouth in [place] capsule 00 :00 the Medical morning Branch and 1 capsule in the evening. Do all this for 5 days. cephALEXin 2022-08- Yes [id number] 500mg Take 1 Univers (KEFLEX) 0- 11-11 capsule by ity of 500 mg 00:00: 05:59 mouth 4 [place] capsule 00 :00 (four) Medical times Branch daily for 10 days. cephALEXin 2022-08- Yes [id number] 500mg Take 1 Univers (KEFLEX) 0-31 11-11 capsule by ity of 500 mg 00:00: 05:59 mouth 4 [place] capsule 00 :00 (four) Medical times Branch daily for 10 days. cephALEXin 2022-08- Yes [id number] 500mg Take 1 Univers (KEFLEX) 0-31 11-11 capsule by ity of 500 mg 00:00: 05:59 mouth 4 [place] capsule 00 :00 (four) Medical times Branch daily for 10 days. belimumab 2022-08 Yes INJECT Univer s (BENLYSTA) 0-23 200MG ity of 200 mg/mL 17:41: [place] 24 USLY ONCE Medical A WEEK Branch belimumab 2022-08 Yes INJECT Univer s (BENLYSTA) 0-23 200MG ity of 200 mg/mL 17:41: [place] USLY ONCE Medical A WEEK Branch belimumab 2022-08 Yes INJECT Univer s (BENLYSTA) 0-23 200MG ity of 200 mg/mL 17:41: [place] 24 USLY ONCE Medical A WEEK Branch belimumab 2022-08 Yes INJECT Univer s (BENLYSTA) 0-23 200MG ity of 200 mg/mL 17:41: [place] 24 USLY ONCE Medical A WEEK Branch belimumab 2022-08 Yes INJECT Univer s (BENLYSTA) 0-23 200MG ity of 200 mg/mL 17:41: [place] 24 USLY ONCE Medical A WEEK Branch belimumab 2022-08 Yes INJECT Univer s (BENLYSTA) 0-23 200MG ity of 200 mg/mL 17:41: [place] 24 USLY ONCE Medical A WEEK Branch belimumab 2022-08 Yes INJECT Univer s (BENLYSTA) 0-23 200MG ity of 200 mg/mL 17:41: [place] 24 USLY ONCE Medical A WEEK Branch ondansetron 2022-08 Yes [id number] 4mg Take 1 Univers 4 mg 0-23 tablet by ity of disintegrat 00:00: mouth [place] ing tablet 00 every 12 Medic al (twelve) Branch hours as needed for Nausea and Vomiting (N/V). ondansetron 2022-08 Yes [id number] 4mg Take 1 Univers 4 mg 0-23 tablet by ity of disintegrat 00:00: mouth [place] ing tablet 00 every 12 Medic al (twelve) Branch hours as needed for Nausea and Vomiting (N/V). ondansetron 2022-08 Yes [id number] 4mg Take 1 Univers 4 mg 0-23 tablet by ity of disintegrat 00:00: mouth [place] ing tablet 00 every 12 Medic al (twelve) Branch hours as needed for Nausea and Vomiting (N/V). ondansetron 2022-08 Yes [id number] 4mg Take 1 Univers 4 mg 0-23 tablet by ity of disintegrat 00:00: mouth [place] ing tablet 00 every 12 Medic al (twelve) Branch hours as needed for Nausea and Vomiting (N/V). ondansetron 2022-08 Yes [id number] 4mg Take 1 Univers 4 mg 0-23 tablet by ity of disintegrat 00:00: mouth [place] ing tablet 00 every 12 Medic al (twelve) Branch hours as needed for Nausea and Vomiting (N/V). ondansetron 2022-08 Yes [id number] 4mg Take 1 Univers 4 mg 0-23 tablet by ity of disintegrat 00:00: mouth [place] ing tablet 00 every 12 Medic al (twelve) Branch hours as needed for Nausea and Vomiting (N/V). ondansetron 2022-08 Yes [id number] 4mg Take 1 Univers 4 mg 0-23 tablet by ity of disintegrat 00:00: mouth [place] ing tablet 00 every 12 Medic al (twelve) Branch hours as needed for Nausea and Vomiting (N/V). dicyclomine 2022- Yes [id number] 10mg Take 1 Univers 10 mg 05-02-15 capsule by ity of capsule 00:00: 04:59 mouth 4 [place] 00 :00 (four) Medical times Branch daily for 7 days. ondansetron 2022- Yes [id number] 4mg Take 1 Univers 4 mg 05-02-13 tablet by ity of disintegrat 00:00: 04:59 [...] 02/15/23 at 1945, TOY iopamidol 2022- No [id number] 80mL 80 mL, U nivers (ISOVUE 02-15 Intravenou ity o f 370-500 mL) 23:15: 23:15 s, ONCE, 1 [place] injection 00 :00 dose, On Medica l 80 mL Fri Branch 02/15/23 at 1815, Routine NaCl 0.9% 2022- No 1000mL at 999 Uni vers (NS) bolus 02-15 06-24 mL/hr, ity of infusion 22:45: 01:36 1,000 mL, [place] 1,000 mL 00 :00 IV Medical Infusion, Branch ONCE, 1 dose, On 02/15/23 at 1745, STAT proMETHazin 2022-0 Yes [id number] 25mg Take 1 Univers e 25 mg 6-23 tablet by ity of tablet 00:00: mouth [place] 00 every 4 Medical (four) Branch hours as needed for Nausea and Vomiting (N/V). proMETHazin 2022-0 2022- No [id number] 25mg Take 1 Univers e 25 mg 6-23 08-08 tablet by ity of tablet 00:00: 00:00 mouth [place] 00 :00 every 4 Medical (four) Branch hours as needed for Nausea and Vomiting (N/V). dicyclomine 2022-0 Yes [id number] 10mg Take 1 Univers 10 mg 4-12 capsule by ity of capsule 00:00: mouth 4 [place] 00 (four) Medical times Branch daily. dicyclomine 2022-0 Yes [id number] 10mg Take 1 Univers 10 mg 4-12 capsule by ity of capsule 00:00: mouth 4 [place] 00 (four) Medical times Branch daily. dicyclomine 2022-0 2022- No [id number] 10mg Take 1 Univers 10 mg 4-12 08-08 capsule by ity of capsule 00:00: 00:00 mouth 4 [place] 00 :00 (four) Medical times Branch daily. Kenalog Kenalog 2021-08 No 40mg Common (Triamcinol (Triamcinol 1-09 S pirit one) one) 00:00: - [facility] 00 [facility] hydroxychlo 2021-08 Yes Take by Uni vers roquine 0-05 mouth. ity of sulfate 11:33: [place] (PLAQUENIL 32 Medical ORAL) Branch hydroxychlo 2021-08 Yes Take by Uni vers roquine 0-05 mouth. ity of sulfate 11:33: [place] (PLAQUENIL 32 Medical ORAL) Branch hydroxychlo 2021-08 Yes Take by Uni vers roquine 0-05 mouth. ity of sulfate 11:33: [place] (PLAQUENIL 32 Medical ORAL) [facility] 2021-08 Yes Take by Uni vers roquine 0-05 mouth. ity of sulfate 11:33: [place] (PLAQUENIL 32 Medical ORAL) [facility] 2021-08 Yes Take by Uni vers roquine 0-05 mouth. ity of sulfate 11:33: [place] (PLAQUENIL 32 Medical ORAL) [facility] 2021-08 Yes Take by Uni vers roquine 0-05 mouth. ity of sulfate 11:33: [place] (PLAQUENIL 32 Medical ORAL) [facility] 2021-08 Yes Take by Uni vers roquine 0-05 mouth. ity of sulfate 11:33: [place] (PLAQUENIL 32 Medical ORAL) [facility] 2021-08 Yes Take by Uni vers roquine 0-05 mouth. ity of sulfate 11:33: [place] (PLAQUENIL 32 Medical ORAL) [facility] 2021-08 Yes Take by Uni vers roquine 0-05 mouth. ity of sulfate 11:33: [place] (PLAQUENIL 32 Medical ORAL) [facility] 2021-08 Yes Take by Uni vers roquine 0-05 mouth. ity of sulfate 11:33: [place] (PLAQUENIL 32 Medical ORAL) [facility] 2021-08 Yes Take by Uni vers roquine 0-05 mouth. ity of sulfate 11:33: [place] (PLAQUENIL 32 Medical ORAL) [facility] 2021-08 Yes Take by Uni vers roquine 0-05 mouth. ity of sulfate 11:33: [place] (PLAQUENIL 32 Medical ORAL) [facility] 2021-08 Yes Take by Uni vers roquine 0-05 mouth. ity of sulfate 11:33: [place] (PLAQUENIL 32 Medical ORAL) [facility] 2021-08 Yes Take by Uni vers roquine 0-05 mouth. ity of sulfate 11:33: [place] (PLAQUENIL 32 Medical ORAL) [place] proMETHazin 2021-08 Yes [id number] 25mg Take 1 Univers e 25 mg 0-05 tablet by ity of tablet 00:00: mouth [place] 00 every 6 Medical (six) Branch hours as needed for Nausea and Vomiting (N/V). proMETHazin 2021-08 Yes [id number] 25mg Take 1 Univers e 25 mg 0-05 tablet by ity of tablet 00:00: mouth [place] 00 every 6 Medical (six) Branch hours as needed for Nausea and Vomiting (N/V). proMETHazin 2021-08 Yes [id number] 25mg Take 1 Univers e 25 mg 0-05 tablet by ity of tablet 00:00: mouth [place] 00 every 6 Medical (six) Branch hours as needed for Nausea and Vomiting (N/V). proMETHazin 2021-08 Yes [id number] 25mg Take 1 Univers e 25 mg 0-05 tablet by ity of tablet 00:00: mouth [place] 00 every 6 Medical (six) Branch hours as needed for Nausea and Vomiting (N/V). proMETHazin 2021-08- No [id number] 25mg Take 1 Univers e 25 mg 0-05 08-08 tablet by ity of tablet 00:00: 00:00 mouth [place] 00 :00 every 6 Medical (six) Branch hours as needed for Nausea and Vomiting (N/V). proMETHazin 2021- No [id number] 25mg Take 1 Univers e 25 mg [...] 01/05/22 at 1200, TOY docusate 2021- No [id number] 100mg Take 1 Univers 100 mg 01-05 capsule by ity of capsule 00:00: 04:59 mouth [place] 00 :00 daily for Medical 30 days. Branch docusate 2021- No [id number] 100mg Take 1 Univers 100 mg 01-05 capsule by ity of capsule 00:00: 04:59 mouth [place] 00 :00 daily for Medical 30 days. Branch polyethylen 2021- No [id number] 17g Take 17 g Univers e glycol 01-05 by mouth 2 ity of 3350 00:00: 04:59 (two) [place] (MIRALAX) 00 :00 times Medical 17 daily for Branch gram/dose 5 days. powder sennosides 2021- No [id number] 8.6mg Take 1 Univers (SENOKOT) 01-05 tablet [...] (PLAQUENIL 21 Medical ORAL) Branch proMETHazin Yes [id number] 25mg Insert 1 Univers e 25 mg 7-15 Suppositor ity of suppository 00:00: [place] 00 rectum Medical every 4 Branch (four) hours as needed for Nausea and Vomiting (N/V). proMETHazin Yes [id number] 25mg Insert 1 Univers e 25 mg 7-15 Suppositor ity of suppository 00:00: [place] 00 rectum Medical every 4 Branch (four) hours as needed for Nausea and Vomiting (N/V). proMETHazin Yes [id number] 25mg Insert 1 Univers e 25 mg 7-15 Suppositor ity of suppository 00:00: [place] 00 rectum Medical every 4 Branch (four) hours as needed for Nausea and Vomiting (N/V). proMETHazin Yes [id number] 25mg Insert 1 Univers e 25 mg 7-15 Suppositor ity of suppository 00:00: [place] 00 rectum Medical every 4 Branch (four) hours as needed for Nausea and Vomiting (N/V). proMETHazin Yes [id number] 25mg Insert 1 Univers e 25 mg 7-15 Suppositor ity of suppository 00:00: [place] 00 rectum Medical every 4 Branch (four) hours as needed for Nausea and Vomiting (N/V). proMETHazin Yes [id number] 25mg Insert 1 Univers e 25 mg 7-15 Suppositor ity of suppository 00:00: [place] 00 rectum Medical every 4 Branch (four) hours as needed for Nausea and Vomiting (N/V). proMETHazin Yes [id number] 25mg Insert 1 Univers e 25 mg 7-15 Suppositor ity of suppository 00:00: [place] 00 rectum Medical every 4 Branch (four) hours as needed for Nausea and Vomiting (N/V). proMETHazin Yes [id number] 25mg Insert 1 Univers e 25 mg 7-15 Suppositor ity of suppository 00:00: [place] 00 rectum Medical every 4 Branch (four) hours as needed for Nausea and Vomiting (N/V). proMETHazin Yes [id number] 25mg Insert 1 Univers e 25 mg 7-15 Suppositor ity of suppository 00:00: [place] 00 rectum Medical every 4 Branch (four) hours as needed for Nausea and Vomiting (N/V). proMETHazin 2022- No [id number] 25mg Insert 1 Univers e 25 mg 7-15 08-08 Suppositor ity o f suppository 00:00: 00:00 y into [place] 00 :00 rectum Medical every 4 Branch (four) hours as needed for Nausea and Vomiting (N/V). Omeprazole Omeprazole 2021-0 No QD Omeprazole 20 MG 20 MG [...] 20 MG 00:00: 00 naproxen 2020-0 Yes [id number] 550mg Take 1 Un gita sodium 4-13 tablet by ity of (ANAPROX 00:00: mouth 2 [place] DS) 550 mg 00 (two) Medical tablet times Branch daily with meals. methylPREDN 2020-0 Yes [id number] Take by Univers ISolone 4-13 mouth ity of (MEDROL, 00:00: SEE-INSTRU [place] HERMAN,) 4 mg 00 CTIONS. Medica l tablets follow Branch package directions naproxen 2020-0 Yes [id number] 550mg Take 1 Un gita sodium 4-13 tablet by ity of (ANAPROX 00:00: mouth 2 [place] DS) 550 mg 00 (two) Medical tablet times Branch daily with meals. methylPREDN 2020-0 Yes [id number] Take by Univers ISolone 4-13 mouth ity of (MEDROL, 00:00: SEE-INSTRU [place] HERMAN,) 4 mg 00 CTIONS. Medica l tablets follow Branch package directions naproxen 2020-0 Yes [id number] 550mg Take 1 Un gita sodium 4-13 tablet by ity of (ANAPROX 00:00: mouth 2 [place] DS) 550 mg 00 (two) Medical tablet times Branch daily with meals. methylPREDN 2020-0 Yes [id number] Take by Univers ISolone 4-13 mouth ity of (MEDROL, 00:00: SEE-INSTRU [place] HERMAN,) 4 mg 00 CTIONS. Medica l tablets follow Branch package directions naproxen 2020-0 Yes [id number] 550mg Take 1 Un gita sodium 4-13 tablet by ity of (ANAPROX 00:00: mouth 2 [place] DS) 550 mg 00 (two) Medical tablet times Branch daily with meals. methylPREDN 2021-0 Yes [id number] Take by Univers ISolone 4-13 mouth ity of (MEDROL, 00:00: SEE-INSTRU [place] HERMAN,) 4 mg 00 CTIONS. Medica l tablets follow Branch package directions naproxen 2020-0 Yes [id number] 550mg Take 1 Un gita sodium 4-13 tablet by ity of (ANAPROX 00:00: mouth 2 [place] DS) 550 mg 00 (two) Medical tablet times Branch daily with meals. methylPREDN 2021-0 Yes [id number] Take by Univers ISolone 4-13 mouth ity of (MEDROL, 00:00: SEE-INSTRU [place] HERMAN,) 4 mg 00 CTIONS. Medica l tablets follow Branch package directions naproxen 2020-0 Yes [id number] 550mg Take 1 Un gita sodium 4-13 tablet by ity of (ANAPROX 00:00: mouth 2 [place] DS) 550 mg 00 (two) Medical tablet times Branch daily with meals. methylPREDN 2020-0 Yes [id number] Take by Univers ISolone 4-13 mouth ity of (MEDROL, 00:00: SEE-INSTRU [place] HERMAN,) 4 mg 00 CTIONS. Medica l tablets follow Branch package directions naproxen 2020-0 Yes [id number] 550mg Take 1 Un gita sodium 4-13 tablet by ity of (ANAPROX 00:00: mouth 2 [place] DS) 550 mg 00 (two) Medical tablet times Branch daily with meals. methylPREDN 2020-0 Yes [id number] Take by Univers ISolone 4-13 mouth ity of (MEDROL, 00:00: SEE-INSTRU [place] HERMAN,) 4 mg 00 CTIONS. Medica l tablets follow Branch package directions naproxen 2020-0 Yes [id number] 550mg Take 1 Un gita sodium 4-13 tablet by ity of (ANAPROX 00:00: mouth 2 [place] DS) 550 mg 00 (two) Medical tablet times Branch daily with meals. methylPREDN 2021-0 Yes [id number] Take by Univers ISolone 4-13 mouth ity of (MEDROL, 00:00: SEE-INSTRU [place] HERMAN,) 4 mg 00 CTIONS. Medica l tablets follow Branch package directions naproxen 1-0 Yes [id number] 550mg Take 1 Un gita sodium 4-13 tablet by ity of (ANAPROX 00:00: mouth 2 [place] DS) 550 mg 00 (two) Medical tablet times Branch daily with meals. methylPREDN 0 Yes [id number] Take [facility] mouth ity of (MEDROL, 00:00: SEE-INSTRU [place] HERMAN,) 4 mg 00 CTIONS. Medica l tablets follow Branch package directions naproxen 2022- No [id number] 550mg Take 1 U nivers sodium 12-0608 tablet by ity of (ANAPROX 00:00: 00:00 mouth 2 [place] DS) 550 mg 00 :00 (two) Medical tablet times Branch daily with meals. methylPREDN 2022- No [id number] Take by [facility] ISolone 12-06-08 mouth ity of (MEDROL, 00:00: 00:00 SEE-INSTRU [...] mg ity of tablet 15:41: tablet [place] Take 1 Medical tablet Branch every day [...] as needed for Pain (scale 1-3). IBUPROFEN Yes 400mg Take 1 Unive rs 400 mg 3-17 tablet by ity of tablet 00:00: mouth [place] 00 every 6 Medical (six) Branch hours as needed for Pain (scale 1-3). IBUPROFEN 2022- No 400mg Take 1 Univ ers 400 mg 3-17 04-12 tablet by ity of tablet 00:00: 00:00 mouth [place] 00 :00 every 6 Medical (six) Branch hours as needed for Pain (scale 1-3). omeprazole Yes 40mg Take 1 Unive rs (PRILOSEC) 5-17 capsule by ity of 40 mg 00:00: mouth [place] capsule 00 daily. Medical Branch omeprazole Yes 40mg Take 1 Unive rs (PRILOSEC) 5-17 capsule by ity of 40 mg 00:00: mouth [place] capsule 00 daily. Medical Branch omeprazole Yes 40mg Take 1 Unive rs (PRILOSEC) 5-17 capsule by ity of 40 mg 00:00: mouth [place] capsule 00 daily. Medical Branch omeprazole Yes 40mg Take 1 Unive rs (PRILOSEC) 5-17 capsule by ity of 40 mg 00:00: mouth [place] capsule 00 daily. Medical Branch omeprazole Yes 40mg Take 1 Unive rs (PRILOSEC) 5-17 capsule by ity of 40 mg 00:00: mouth [place] capsule 00 daily. Medical Branch omeprazole Yes 40mg Take 1 Unive rs (PRILOSEC) 5-17 capsule by ity of 40 mg 00:00: mouth [place] capsule 00 daily. Medical Branch omeprazole Yes 40mg Take 1 Unive rs (PRILOSEC) 5-17 capsule by ity of 40 mg 00:00: mouth [place] capsule 00 daily. Medical Branch omeprazole 2022- No 40mg Take 1 Univ ers (PRILOSEC) [...] HYDROcodone HYDROcodone No HYDROcodon -Acetaminop -[facility] Ambien 10 Ambien 10 No 1{table QD [...] HYDROcodone HYDROcodone No HYDROcodon -Acetaminop -[facility] Ambien 10 Ambien 10 No 1{table QD [...] HYDROcodone HYDROcodone No HYDROcodon -Acetaminop -[facility] Ambien 10 Ambien 10 No 1{table QD [...] 12.5 MG :00 ed} Immunizations Ordered Filled Date Status Comments Source Immunization Name Immunization Name Adacel (Tdap) Adacel (Tdap) 2020-08-25 Completed [facility] - 15:49:00 [facility] Adacel (Tdap) Adacel (Tdap) 2020-08-25 Completed Common S [facility] - 15:49:00 [facility] Adacel (Tdap) Adacel (Tdap) 2020-08-25 Completed Common S pirit - 15:49:00 [facility] Adacel (Tdap) Adacel (Tdap) 2020-08-25 Completed Common S pirit - 15:49:00 [facility] Adacel (Tdap) Adacel (Tdap) 2020-08-25 Completed Common S pirit - 15:49:00 [facility] Adacel (Tdap) Adacel (Tdap) 2020-08-25 Completed Common S pirit - 15:49:00 [facility] Adacel (Tdap) Adacel (Tdap) 2020-08-25 Completed Common S pirit - 15:49:00 [facility] Adacel (Tdap) Adacel (Tdap) 2020-08-25 Completed Common S pirit - 15:49:00 [facility] Adacel (Tdap) Adacel (Tdap) 2020-08-25 Completed Common S pirit - 15:49:00 [facility] Adacel (Tdap) Adacel (Tdap) 2020-08-25 Completed Common S pirit - 15:49:00 [facility] TDAP 2019-01-26 Completed University of 00:00:00 [place] [facility] TDAP 2019-01-26 Completed University of 00:00:00 [place] [facility] Branch TDAP 2019-01-26 Completed University of 00:00:00 [facility] TDAP 2019-01-26 Completed University of 00:00:00 [place] [facility] TDAP 2019-01-26 Completed University of 00:00:00 [facility] TDAP 2019-01-26 Completed University of 00:00:00 [facility] TDAP 2019-01-26 Completed University of 00:00:00 [facility] TDAP 2019-01-26 Completed University of 00:00:00 [facility] TDAP 2019-01-26 Completed University of 00:00:00 [place] [facility] TDAP 2019-01-26 Completed University of 00:00:00 [place] [facility] TDAP 2019-01-26 Completed University of 00:00:00 [facility] TDAP Unknown Completed [facility] TDAP Unknown Completed [facility] TDAP Unknown Completed [facility] TDAP Unknown Completed [facility] TDAP Unknown Completed [facility] TDAP Unknown Completed [facility] TDAP Unknown Completed [facility] TDAP Unknown Completed [facility] Vital Signs Vital Name Observation Time Observation Value Comments Source Systolic blood 2023-07-01 20:04:00 119 mm[Hg] Univer sity of pressure [facility] Diastolic blood 2023-07-01 20:04:00 80 mm[Hg] Unive rsity of pressure [facility] Heart rate 2023-07-01 20:04:00 96 /min Universi [facility] Body temperature 2023-07-01 20:04:00 37.28 Meredith [facility] Res[facility] rate 2023-07-01 20:04:00 17 /min [facility] Body height 2023-07-01 20:04:00 152.4 cm [facility] Body weight 2023-07-01 20:04:00 89.767 kg [facility] [place] [facility] BMI 2023-07-01 20:04:00 38.65 kg/m2 [facility] Oxygen saturation in 2023-07-01 20:04:00 99 /min University of Arterial blood by [facility] Pulse oximetry Branch Systolic blood 2023-07-01 17:29:00 128 mm[Hg] Univer sity of pressure [facility] Diastolic blood 2023-07-01 17:29:00 99 mm[Hg] Unive rsity of pressure [facility] Heart rate 2023-07-01 17:29:00 105 /min [facility] Body temperature 2023-07-01 17:29:00 37.11 Meredith [facility] [place] [facility] Respiratory rate 2023-07-01 17:29:00 16 /min [facility] Body height 2023-07-01 17:29:00 152.4 cm [facility] Body weight 2023-07-01 17:29:00 87.091 kg [facility] [place] [facility] BMI 2023-07-01 17:29:00 37.50 kg/m2 [facility] [place] [facility] Oxygen saturation in 2023-07-01 17:29:00 100 /min University of Arterial blood by [facility] Pulse oximetry Branch Systolic blood 2023-06-25 16:01:00 138 mm[Hg] Univer sity of pressure [facility] Diastolic blood 2023-06-25 16:01:00 83 mm[Hg] Unive rsity of pressure [facility] Heart rate 2023-06-25 16:01:00 108 /min [facility] Body temperature 2023-06-25 16:01:00 36.44 Meredith [facility] [place] [facility] Respiratory rate 2023-06-25 16:01:00 20 /min Univ [facility] [place] [facility] Body height 2023-06-25 16:01:00 152.4 cm [facility] [place] [facility] Body weight 2023-06-25 16:01:00 91.343 kg [facility] [place] [facility] BMI 2023-06-25 16:01:00 39.33 kg/m2 [facility] [place] [facility] Oxygen saturation in 2023-06-25 16:01:00 97 /min University of Arterial blood by [place] [facility] Pulse oximetry Branch Systolic blood 2023-06-17 22:06:00 133 mm[Hg] Univer sity of pressure [facility] Diastolic blood 2023-06-17 22:06:00 82 mm[Hg] Unive rsity of pressure [facility] Heart rate 2023-06-17 22:06:00 84 /min [facility] Body temperature 2023-06-17 22:06:00 36.61 Meredith [facility] [place] [facility] Respiratory rate 2023-06-17 22:06:00 17 /min Univ [facility] [place] [facility] Body height 2023-06-17 22:06:00 152.4 cm [facility] [place] [facility] Body weight 2023-06-17 22:06:00 86.183 kg [facility] [place] [facility] BMI 2023-06-17 22:06:00 37.11 kg/m2 [facility] [place] [facility] Oxygen saturation in 2023-06-17 22:06:00 98 /min University of Arterial blood by [place] [facility] Pulse oximetry Branch Systolic blood 2023-05-02 21:58:00 131 mm[Hg] Univer sity of pressure [facility] Diastolic blood 2023-05-02 21:58:00 83 mm[Hg] Unive rsity of pressure [facility] Heart rate 2023-05-02 21:58:00 100 /min [facility] Body temperature 2023-05-02 21:58:00 36.17 Meredith [facility] [place] [facility] Respiratory rate 2023-05-02 21:58:00 16 /min Univ [facility] [place] [facility] Body height 2023-05-02 21:58:00 152.4 cm [facility] Body weight 2023-05-02 21:58:00 89.54 kg [facility] BMI 2023-05-02 21:58:00 38.55 kg/m2 [facility] [place] [facility] Oxygen saturation in 2023-05-02 21:58:00 96 /min University of Arterial blood by [facility] Pulse oximetry Branch Systolic blood 2023-04-02 18:16:00 122 mm[Hg] Univer sity of pressure [facility] Diastolic blood 2023-04-02 18:16:00 88 mm[Hg] Unive rsity of pressure [facility] Heart rate 2023-04-02 18:16:00 101 /min [facility] Body temperature 2023-04-02 18:16:00 36.83 Meredith [facility] [place] [facility] Respiratory rate 2023-04-02 18:16:00 18 /min Univ [facility] Body height 2023-04-02 18:16:00 154.9 cm [facility] Body weight 2023-04-02 18:16:00 86.909 kg [facility] BMI 2023-04-02 18:16:00 36.20 kg/m2 [facility] Oxygen saturation in 2023-04-02 18:16:00 98 /min University of Arterial blood by [facility] Pulse oximetry Branch Systolic blood 2023-02-16 02:40:00 132 mm[Hg] Univer sity of pressure [facility] Diastolic blood 2023-02-16 02:40:00 72 mm[Hg] Unive rsity of pressure [facility] Heart rate 2023-02-16 02:40:00 84 /min [facility] Respiratory rate 2023-02-16 02:40:00 16 /min Univ [facility] Oxygen saturation in 2023-02-16 02:40:00 98 /min University of Arterial blood by [facility] Pulse oximetry Branch Body temperature 2023-02-15 19:39:00 36.78 Meredith [facility] Body height 2023-02-15 19:39:00 154.9 cm [facility] Body weight 2023-02-15 19:39:00 86.637 kg [facility] BMI 2023-02-15 19:39:00 36.09 kg/m2 [facility] Systolic blood 2022-12-05 19:51:00 126 mm[Hg] Univer sity of pressure [facility] Diastolic blood 2022-12-05 19:51:00 83 mm[Hg] Unive rsity of pressure [facility] Heart rate 2022-12-05 19:51:00 92 /min Universi ty [facility] Body temperature 2022-12-05 19:51:00 36.61 Meredith Univ ersity of [facility] Respiratory rate 2022-12-05 19:51:00 16 /min [facility] Body height 2022-12-05 19:51:00 152.4 cm Universi ty [facility] Body weight 2022-12-05 19:51:00 89.841 kg Universi [facility] BMI 2022-12-05 19:51:00 38.68 kg/m2 [facility] Oxygen saturation in 2022-12-05 19:51:00 96 /min [facility] Arterial blood by [facility] Pulse oximetry Branch height 2022-07-04 08:20:00 61 [in_i] [facility] weight 2022-07-04 08:20:00 191.5 [lb_av] Common [facility] temperature 2022-07-04 08:20:00 97.2 [degF] Common [facility] bmi 2022-07-04 08:20:00 36.18 kg/m2 [facility] oximetry 2022-07-04 08:20:00 99 % [facility] respiratory rate 2022-07-04 08:20:00 18 /min Comm on [facility] blood pressure 2022-07-04 08:20:00 115 mm[Hg] Common [facility] - systolic [facility] blood pressure 2022-07-04 08:20:00 71 mm[Hg] Common [facility] - diastolic [facility] Systolic blood 2022-05-30 16:35:00 133 mm[Hg] Univer sity of [facility] Diastolic blood 2022-05-30 16:35:00 89 mm[Hg] Unive rsity of [facility] Heart rate 2022-05-30 16:35:00 116 /min Universi ty of [facility] Body temperature 2022-05-30 16:35:00 36.89 Meredith [facility] Respiratory rate 2022-05-30 16:35:00 18 /min [facility] Body height 2022-05-30 16:35:00 152.4 cm [facility] Body weight 2022-05-30 16:35:00 88.99 kg Universi [facility] BMI 2022-05-30 16:35:00 38.32 kg/m2 [facility] Oxygen saturation in 2022-05-30 16:35:00 100 /min [facility] Arterial blood by [facility] Pulse oximetry Branch height 2022-03-14 13:50:00 61 [in_i] Common [facility] weight 2022-03-14 13:50:00 189 [lb_av] [facility] temperature 2022-03-14 13:50:00 97.6 [degF] [facility] bmi 2022-03-14 13:50:00 35.71 kg/m2 [facility] oximetry 2022-03-14 13:50:00 100 % [facility] respiratory rate 2022-03-14 13:50:00 16 /min Comm on [facility] blood pressure 2022-03-14 13:50:00 132 mm[Hg] Common [facility] - systolic [facility] blood pressure 2022-03-14 13:50:00 73 mm[Hg] Common [facility] height 2022-03-14 13:40:00 61 [in_i] Common [facility] weight 2022-03-14 13:40:00 189 [lb_av] [facility] temperature 2022-03-14 13:40:00 97.6 [degF] [facility] bmi 2022-03-14 13:40:00 35.71 kg/m2 [facility] oximetry 2022-03-14 13:40:00 100 % [facility] respiratory rate 2022-03-14 13:40:00 16 /min Comm on [facility] blood pressure 2022-03-14 13:40:00 132 mm[Hg] Common [facility] blood pressure 2022-03-14 13:40:00 73 mm[Hg] Common [facility] Systolic blood 2022-01-16 20:40:00 135 mm[Hg] Univer sity of pressure [facility] Diastolic blood 2022-01-16 20:40:00 87 mm[Hg] Unive rsity of pressure [facility] Heart rate 2022-01-16 20:40:00 98 /min Universi ty of [facility] Body temperature 2022-01-16 20:40:00 36.5 Meredith Univ ersity of [facility] Respiratory rate 2022-01-16 20:40:00 16 /min Univ ersity of [facility] Body height 2022-01-16 20:40:00 152.4 cm [facility] Body weight 2022-01-16 20:40:00 83.779 kg [facility] BMI 2022-01-16 20:40:00 36.07 kg/m2 Universi ty of [facility] Oxygen saturation in 2022-01-16 20:40:00 99 /min University Arterial blood by [facility] Pulse oximetry Branch Systolic blood 2022-01-05 15:50:00 158 mm[Hg] Univer sity of [facility] Diastolic blood 2022-01-05 15:50:00 89 mm[Hg] Unive rsity of pressure [facility] Heart rate 2022-01-05 15:50:00 101 /min Universi ty of [facility] Body temperature 2022-01-05 15:50:00 37.06 Meredith Univ ersity of [facility] Respiratory rate 2022-01-05 15:50:00 18 /min Univ ersity of [facility] Body height 2022-01-05 15:50:00 154.9 cm Universi ty of [facility] Body weight 2022-01-05 15:50:00 79.379 kg Universi ty of [facility] Branch BMI 2022-01-05 15:50:00 33.07 kg/m2 [facility] Oxygen saturation in 2022-01-05 15:50:00 100 /min University Arterial blood by [facility] Pulse oximetry Branch height 2021-12-13 16:20:00 61 [in_i] Common [facility] weight 2021-12-13 16:20:00 170 [lb_av] [facility] temperature 2021-12-13 16:20:00 98.2 [degF] [facility] bmi 2021-12-13 16:20:00 32.12 kg/m2 Common [facility] blood pressure 2021-12-13 16:20:00 125 mm[Hg] Common [facility] blood pressure 2021-12-13 16:20:00 74 mm[Hg] [facility] height 2021-09-06 16:30:00 61 [in_i] Common [facility] weight 2021-09-06 16:30:00 169 [lb_av] [facility] temperature 2021-09-06 16:30:00 97 [degF] [facility] 2021-09-06 16:30:00 31.93 kg/m2 [facility] blood pressure 2021-09-06 16:30:00 128 mm[Hg] [facility] blood pressure 2021-09-06 16:30:00 72 mm[Hg] [facility] height 2021-06-06 15:50:00 61 [in_i] Common [facility] weight 2021-06-06 15:50:00 170 [lb_av] [facility] temperature 2021-06-06 15:50:00 98 [degF] [facility] bmi 2021-06-06 15:50:00 32.12 kg/m2 [facility] blood pressure 2021-06-06 15:50:00 130 mm[Hg] [facility] blood pressure 2021-06-06 15:50:00 70 mm[Hg] [facility] Systolic blood 2021-05-15 20:07:00 140 mm[Hg] [facility] Diastolic blood 2021-05-15 20:07:00 90 mm[Hg] [facility] Heart rate 2021-05-15 20:07:00 105 /min [facility] Body height 2021-05-15 20:07:00 154.9 cm [facility] Body weight 2021-05-15 20:07:00 74.844 kg [facility] BMI 2021-05-15 20:07:00 31.18 kg/m2 [facility] Procedures Procedure Date / Time Performed Performing Clinician Sour e POCT SARS-COV-2 2023-07-01 20:15:00 Natalia Vásquez [place] ANTIGEN (BINAX NOW) Medical [facility] POCT MOLECULAR FLU 2023-07-01 20:11:00 Unknown, Attending [facility] POCT MOLECULAR STREP 2023-07-01 20:09:00 Unknown, Attending [facility] ASSIGNMENT OF BENEFITS 2023-07-01 18:30:35 Doctor Unassigned, No [facility] CONSENT/REFUSAL FOR 2023-07-01 17:25:30 Doctor Unassigned, No [facility] DIAGNOSIS AND [facility] TREATMENT ASSIGNMENT OF BENEFITS 2023-06-25 15:32:57 Doctor Unassigned, No [facility] POCT SARS-COV-2 2023-06-17 22:11:00 Melissa Yancey [place] ANTIGEN (BINAX NOW) Medical Bran ch POCT SARS-COV-2 2023-05-02 22:10:00 Natalia Vásquez [place] ANTIGEN (BINAX NOW) Medical [facility] POCT SARS-COV-2 2023-04-02 18:54:00 Lv Wolf [place] ANTIGEN (BINAX NOW) Medical Bran [facility] CT ABDOMEN PELVIS W 2023-02-15 22:28:42 Hakan Conti [facility] CONTRAST Medical Branch LIPASE 2023-02-15 21:08:00 Hakan Conti [facility] MAGNESIUM 2023-02-15 21:08:00 Hakan Conti Barbara [facility] TROPONIN I 2023-02-15 21:08:00 Hakan Conti Barbara [facility] COMP. METABOLIC PANEL 2023-02-15 21:08:00 Hakan Conti [facility] ([id number]) Medical [place] CBC WITH DIFF 2023-02-15 21:08:00 Hakan Conti Barbara [facility] URINALYSIS 2023-02-15 21:08:00 Hakan Conti [facility] ASSIGNMENT OF BENEFITS 2023-02-15 20:57:48 Doctor Unassigned, No [facility] NOTICE OF PRIVACY 2023-02-15 19:28:07 Doctor Unassigned, No [facility] CONSENT/REFUSAL FOR 2023-02-15 19:27:07 Doctor Unassigned, No [facility] DIAGNOSIS AND [facility] TREATMENT POCT SARS-COV-2 2022-12-05 20:09:00 Arcenio Napoles [facility] ANTIGEN (BINAX NOW) Medical [facility] PATIENT FINANCIAL 2022-12-05 19:44:23 Doctor Unassigned, No [facility] POLICY [facility] ASSIGNMENT OF BENEFITS 2022-05-30 16:28:29 Doctor Unassigned, No [facility] CT ABDOMEN PELVIS WO 2022-01-05 17:20:35 Gary Gonzalez [facility] CONTRAST [facility] Branch XR KUB 2022-01-05 16:21:08 Gary Gonzalez [facility] POCT TEST 2022-01-05 16:08:[address] [facility] 2022-01-05 16:06:00 Gary Gonzalez [facility] HEPATIC FUNCTION PANEL 2022-01-05 16:06:00 Gary Gonzalez [facility] ([id number]) Medical Branch (ALB,T.PRO,BILI T,BU/BC,ALT,AST,ALK PHOS) BASIC METABOLIC PANEL 2022-01-05 16:06:00 Gary Gonzalez [facility] (NA, K, CL, CO2, Medical Branch GLUCOSE, BUN, CREATININE, CA) CBC WITH DIFF 2022-01-05 16:06:00 [facility] URINALYSIS 2022-01-05 16:06:00 Gary Gonzalez [facility] CONSENT/REFUSAL FOR 2022-01-05 15:43:39 Doctor Unassigned, No Un [facility] DIAGNOSIS AND Name Medical Branch TREATMENT Encounters Start End Encounter Admission Attending Care Care Encounter Source Date/Time Date/Time Type Type Clinicians Facility Department ID 2022-10-03 Outpatient Higgins, STLMLC STLMLC [id number] Common 08:13:00 [facility] [address] [facility] 2022-07-02 Outpatient Higgins, STLMLC STLMLC [id number] Common 10:13:01 Brandee [id number] [facility] 2022-06-12 Outpatient Higgins, STLMLC STLMLC [id number] Common 09:17:00 Brandee 01129 [facility] 2021-09-20 Outpatient Higgins, STLMLC STLMLC [id number] Common 14:00:52 Brandee [id number] [facility] 2021-09-20 Outpatient Higgins, STLMLC STLMLC [id number] Common 13:53:20 Brandee [id number] [facility] 2021-09-20 Outpatient Higgins, STLMLC STLMLC [id number] Common 13:19:51 Brandee 13622 [facility] 2021-09-20 Outpatient Higgins, STLMLC STLMLC [id number] Common 13:14:31 Brandee 00581 [facility] 2021-09-20 Outpatient Higgins, STLMLC STLMLC [id number] Common 12:50:04 Brandee [id number] [facility] 2021-09-20 Outpatient GRETTA Higgins [facility] [id number] Common 12:48:36 [facility] [id number] [facility] 2021-06-26 Emergency [facility] [id number] Univers 17:19:59 ity of [facility] 2021-06-26 Emergency [facility] [id number] Univers 08:32:13 ity of [facility] 2021-06-26 Emergency [facility] [id number] Univers 02:13:21 ity of [facility] 2021-06-25 Emergency [facility] [id number] Univers 21:06:07 ity of [facility] 2021-06-25 Emergency [facility] [id number] Univers 12:29:01 ity of [facility] 2021-06-25 Emergency [facility] [id number] Univers 01:51:21 ity of [facility] 2023-07-01 2023-07-01 [facility] [id number] Univers 13:20:00 14:19:25 REENU ity of [facility] 2023-07-01 2023-07-01 [facility] 1.2.840.11 [id number] Univers 13:20:00 14:19:25 Care Unknown, Attending HEALTH [id number] ity [facility] [id number] Eddie as ROMEO?BLEA [id number] [address] MEDICAL OFFICE BUILDING 2023-07-01 2023-07-01 Emergency X YANA WANG [facility] ERT 1 [id number] Univers 11:30:00 13:18:00 EFREM WANGOTHY [place] [facility] 2023-07-01 2023-07-01 Emergency Marine [facility] [id number] Univers 11:30:00 13:18:00 Yana JACKSON 350.1.13.10 i ty [facility] 4.2.7.2.686 [place] [id number] [address] 2023-06-25 2023-06-25 Outpatient Chet VÁSQUEZ [facility] [id number] Univers 10:40:00 11:52:18 NATALIA ity [facility] 2023-06-25 2023-06-25 Urgent Natalia Vásquez [facility] [id number] Univers 10:40:00 11:00:00 Care Unknown, Attending HEALTH [id number] ity of [place] [id number] Eddie as ROMEO?BLEA [id number] [address] MEDICAL OFFICE BUILDING 2023-06-25 2023-06-25 Orders Doctor MAE [id number] [id number] Univers 00:00:00 00:00:00 Only Unassigned, ERICA [id number] ity of [place] [facility] 4.2.7.2.686 Eddie as [id number] [address] 2023-06-18 2023-06-18 Letter MAE Solares [id number] Univers 00:00:00 00:00:00 (Out) Ettaskylar MALDONADO 350.1.13.10 it y of [address]686 Eddie as [id number] [facility] 019 [place] 2023-06-17 2023-06-17 Outpatient R BC [facility] [id number] Univers 17:00:00 17:30:14 MELISSA [place] [facility] 2023-06-17 2023-06-17 Urgent Bc Melissa [facility] 1.2.840.114 [id number] Univers 17:00:00 17:30:14 Care Unknown, Attending HEALTH 350.1.13.10 ity of [place] 4.2.7.2.686 Eddie as ROMEO?BLEA [id number] [address] MEDICAL OFFICE [facility] 2023-06-17 2023-06-17 Outpatient R NATY, [facility] [id number] Univers 16:45:00 16:45:00 ATTENDING ity [facility] 2023-05-02 2023-05-02 Urgent Natalia Vásquez [facility] 1.2.840.114 [id number] Univers 16:40:00 17:00:00 Care Unknown, Attending HEALTH 350.1.13.10 ity of [place] 4.2.7.2.686 Eddie as ROMEO?BLEA [id number] [address] OFFICE [facility] 2023-05-02 2023-05-02 Outpatient R FAHAD [facility] [id number] Univers 16:40:00 [facility]:40:00 [facility] 2023-05-02 2023-05-02 Joshua Vásquez [facility] 1.2.840.114 [id number] Univers 00:00:00 00:00:00 (Out) [facility] 350.1.13.10 it y of [place] 4.2.7.2.686 Eddie as ROMEO?BLEA [id number] [address] OFFICE [facility] 2023-04-02 2023-04-02 Outpatient R RYAN [facility] [id number] Univers 12:40:00 14:01:19 REENU y [facility] 2023-04-02 2023-04-02 Urgent Lv Wolf [facility] 1.2.840.11 [id number] Univers 12:40:00 14:01:19 Care Unknown, Attending [facility] 350..13.10 ity [facility] 4.2.7.2.686 Eddie as ROMEO?BLEA [id number] [address] OFFICE [facility] 2023-02-15 2023-02-15 Emergency X SUSHILA, K [facility] ERT [id number] Univers 14:40:00 21:46:00 ity [facility] 2023-02-15 2023-02-15 Emergency Hakan Conti [facility] 1.2.840.114 [id number] Univers 14:40:00 21:46:00 Barbara [place] 350..13.10 i ty of [facility] 4.2.7.2.[place] [id number] [address] 2022-12-05 2022-12-05 Outpatient R YESIKA [facility] [id number] Univers 14:40:00 15:18:01 ARCENIO ity [facility] 2022-12-05 2022-12-05 Urgent Arcenio Napoles [facility] 1.2.840.11 [id number] Univers 14:40:00 15:18:01 Care [facility] 350.1.13.10 [facility] 4.2.7.2.686 Eddie as ROMEO?BLEA [id number] [address] MEDICAL OFFICE [facility] 2022-12-05 2022-12-05 Orders Doctor MAE 1.2.840.114 [id number] Univers 00:00:00 00:00:00 Only Unassigned, ERICA 350.1.13.10 ity of [place] [facility] 4.2.7.2.686 Eddie as [id number] [address] 2022-07-04 2022-07-04 OFFICE [facility] ST[facility] [id number] Co mmon 00:00:00 00:00:00 VISIT [facility] LEVEL 4 [facility] 2022-05-30 2022-05-30 Urgent Bc Melissa [facility] 1.2.840.114 [id number] Univers 13:00:00 13:20:00 Care [facility] [id number] ity of [place] [id number] Eddie as ROMEO?BLEA [phone] [address] OFFICE [facility] 2022-05-30 2022-05-30 Outpatient R BC [facility] [id number] Univers 13:00:00 13:00:00 MELISSA arboleda [facility] 2022-05-30 2022-05-30 Orders Doctor MAE 1.2.840.114 [id number] Univers 00:00:00 00:00:00 Only Unassigned, ERICA 350.1.13.10 ity of [facility] 4.2.7.2.686 Eddie as [phone] [address] 2022-05-03 2022-05-03 (TEL) STLMLC STLMLC [id number] Co mmon 00:00:00 00:00:00 [facility] 2022-03-14 2022-03-14 OFFICE STLC STLMLC [id number] Co mmon 00:00:00 00:00:00 VISIT Spirit ESTAB PT - CHI LEVEL 4 [facility] 2022-03-14 2022-03-14 (TEL) [facility] [id number] Co mmon 00:00:00 00:00:00 Spirit - CHI [facility] 2022-03-14 2022-03-14 SUB ANNUAL STLC [facility] [id number] Common 00:00:00 00:00:00 MCR Spirit WELLNESS - CHI VISIT [facility] 2022-01-16 2022-01-16 Outpatient R FAHAD, [facility] [id number] Univers 16:00:00 16:03:05 [facility] 2022-01-16 2022-01-[address] [facility] 1.2.840.114 [id number] Univers 16:00:00 16:03:05 [facility] [id number] ity [facility] 4.2.7.2.686 Eddie as ROMEO?BLEA [phone] [address] MEDICAL OFFICE BUILDING 2022-01-05 2022-01-[address] [facility] ERT [id number] Univers 10:54:00 13:07:00 [facility] 2022-01-05 2022-01-[address] [facility] [id number] Univers 10:54:00 13:07:00 Gary [place] 350.1.13.10 i ty [facility] 4.2.[address] [facility] [phone] [address] 2021-12-28 2021-12-28 Outpatient R FAHAD [facility] [id number] Univers 13:20:00 13:20:00 [facility] 2021-12-13 2021-12-13 OFFICE ST[facility] [id number] Co mmon 00:00:00 00:00:00 VISIT Spirit ESTAB PT - CHI LEVEL 4 [facility] 2021-09-06 2021-09-06 OFFICE STLC STLC [id number] Co mmon 00:00:00 00:00:00 VISIT EST Spir it PT LEVEL 3 - CHI [facility] 2021-08-14 2021-08-14 Laboratory Only, Ang Db Test [facility] 1.2.8 40.114 [id number] Univers 15:45:00 16:00:00 Only Fidencio Perez 350.1.13.10 ity of [place] 4.2.7.2.686 Eddie as ROMEO?BLEA [id number] [address] MEDICAL OFFICE BUILDING 2021-08-14 2021-08-14 Outpatient R BILL [facility] [id number] Univers 15:45:00 15:54:14 FIDENCIO arboleda o f [facility] 2021-08-01 2021-08-01 (TEL) STLMLC STLMLC [id number] Co mmon 00:00:00 00:00:00 Spirit [facility] 2021-06-15 2021-06-15 (TEL) STLMLC STLMLC [id number] Co mmon 00:00:00 00:00:00 [facility] 2021-06-12 2021-06-12 Outpatient Chet HIDALGO [facility] [id number] Univers 13:30:00 13:30:00 [facility] 2021-06-06 2021-06-06 OFFICE STLMLC STLMLC [id number] Co mmon 00:00:00 00:00:00 VISIT Spirit ESTAB PT - CHI LEVEL 4 [facility] 2021-06-05 2021-06-05 Outpatient Chet HIDALGO [facility] [id number] Univers 13:30:00 13:30:00 [facility] 2021-05-15 2021-05-15 Office Rocky [facility] 1.2.840.114 [id number] Univers 15:01:19 15:16:[address] [facility] 350.1.13.10 it y of [place] 4.2.7.2.686 Eddie as Romeo?Blea [phone] [facility] [address] 2021-05-15 2021-05-15 [facility] [id number] Univers 15:00:00 15:00:00 [facility] 2021-05-10 2021-05-10 [facility] [id number] Univers 13:00:00 13:00:00 [facility] 2021-04-19 2021-04-19 [facility] 1.2.840.114 [id number] Univers 15:25:00 23:59:00 Encounter [facility] 350.1.13.10 ity of [place] 4.2.7.2.686 Eddie as Romeo?Blea [phone] [facility] [address] [facility] 2021-04-19 2021-04-19 Outpatient [facility] [id number] Univers 15:25:00 23:59:00 [facility] 2021-04-19 2021-04-19 Office Jenna Hidalgo [facility] 1.2.840.114 [id number] Univers 15:16:01 17:12:29 Visit Jason Perkins [facility] 350.1.13.10 ity of [place] 4.2.7.2.686 Eddie as Romeo?Blea [phone] [facility] [address] 2021-02-21 2021-02-21 Outpatient STLMLC STLMLC [id number] Common 00:00:00 00:00:00 [facility] 2021-02-21 2021-02-21 Outpatient STLMLC STLMLC [id number] Common 00:00:00 00:00:00 [facility] 2021-02-08 2021-02-08 Outpatient STLMLC STLMLC [id number] Common 00:00:00 00:00:00 [facility] 2021-02-06 2021-02-06 Outpatient STLMLC STLMLC [id number] Common 00:00:00 00:00:00 [facility] 2021-01-20 2021-01-20 [facility]patient [facility] [id number] Univers 08:30:00 08:30:00 [facility] 2021-01-02 2021-01-02 Outpatient STLMLC STLMLC [id number] Common 00:00:00 00:00:00 [facility] 2020-12-21 2020-12-21 Outpatient Chet ANDERSON [facility] [id number] Univers 13:30:00 13:30:00 CARLOS arboleda [facility] 2020-12-12 2020-12-12 Outpatient STLMLC STLMLC [id number] Common 00:00:00 00:00:00 [facility] 2020-12-12 2020-12-12 Outpatient STLMLC STLMLC [id number] Common 00:00:00 00:00:00 [facility] 2020-12-06 2020-12-06 Emergency [facility] 1.2.785.506 [id number] 09:33:00 10:58:00 Boby Jackson 350.1.13.10 [place] 4.2.7.2.686 [place] [id number] [id number] 2020-11-29 2020-11-29 Outpatient STLMLC STLMLC [id number] Common 00:00:00 00:00:00 [facility] 2020-11-10 2020-11-10 Patient Sanjay [facility] 1.2.840.114 [id number] 00:00:00 00:00:00 Outreach [facility] 350.1.13.10 [facility] 4.2.7.2.686 PAVILLION [id number] [id number] 2020-10-22 2020-10-22 Emergency Dionne Sierra [facility] 1.2.840 .114 [id number] 13:44:00 16:22:00 Tori Shaw 350.1.13.1 0 [place] 4.2.7.2.686 [place] [id number] 2020-01-07 2020-01-07 Telephone [facility] 1.2.840.114 [id number] 00:00:00 00:00:00 [facility] 350.1.13.10 Brandi 4.2.7.2.686 Professio [phone] nal [address] 2019-11-03 2019-11-03 Telephone [facility] 1.2.797.156 [id number] 00:00:00 00:00:00 Kaylah Murcia 350.1.13.10 [place] 4.2.7.2.686 Professio [phone] [place] [address] [address] 2019-11-02 2019-11-02 Outpatient R RADIOLOGY [facility] [id number] Univers 15:39:02 23:59:00 ity [facility] 2019-11-02 2019-11-02 Hospital Radiology [facility] 1.2.840.114 [id number] 15:30:00 23:59:00 Encounter [place] 350.1.13.10 [place] 4.2.7.2.686 [place] [id number] [id number] 2019-11-02 2019-11-02 Orders Doctor MAE 1.2.840.114 [id number] 00:00:00 00:00:00 Only Unassigned, ERICA 350.1.13.10 [place] [facility] 4.2.7.2.686 [id number] 2019-10-28 2019-10-28 Office [facility] 1.2.840.114 [id number] 15:11:42 15:59:11 Visit Kaylah Murcia 350.1.13.10 [place] 4.2.7.2.686 Professio [phone] [place] [address] Office [facility] 2019-10-28 2019-10-28 [facility] [id number] Univers 15:20:00 15:20:00 KAYLAH [facility] 2019-10-26 2019-10-26 Emergency X SINGER [facility] ERT [id number] Univers 16:50:10 19:30:00 BOBY [facility] 2019-05-18 2019-05-18 Emergency X HANS [facility] ERT [id number] Univers 12:49:44 15:02:00 ANDREW [facility] Results Test Description Test Time Test Comments Results Result Comments Source POCT MOLECULAR STREP 2023-07-01 20:17:15 Test Item Value Reference Range Interpretation Comme nts POCT Molecular Strep (test code = 46365-8) Negative Negative Lab Interpretation (test code = 85371-9) Normal [facility] MOLECULAR [id number] 20:15:17 Test Item Value Reference Range Interpretation Comments POCT Molecular FluB (test code = Positive Negative A 76773-9) Lab Interpretation (test code = Abnormal 56854-2) [facility] SARS-COV-2 ANTIGEN (BINAX NOW)2023-07-01 20:15:00 Test Item Value Reference Range Interpretation Comments POCT SARS-COV-2 ANTIGEN Not Detected Not Detected (test code = 91580-9) On board controls Yes acceptable with C Line (test code = 3574) BRITTANY (test code = BRITTANY) accurate development and interpretation of all internal controls Lab Interpretation Normal (test code = 83972-1) [facility] SARS-COV-2 ANTIGEN (BINAX NOW)2023-06-17 22:11:00 Test Item Value Reference Range Interpretation Comments POCT SARS-COV-2 ANTIGEN Not Detected Not Detected (test code = 38708-3) On board controls Yes acceptable with C Line (test code = 3574) BRITTANY (test code = BRITTANY) accurate development and interpretation of all internal controls Lab Interpretation Normal (test code = 60523-1) [facility] SARS-COV-2 ANTIGEN (BINAX NOW)2023-06-17 22:11:00 Test Item Value Reference Range Interpretation Comments POCT SARS-COV-2 ANTIGEN Not Detected Not Detected (test code = 43351-4) On board controls Yes acceptable with C Line (test code = 3574) BRITTANY (test code = BRITTANY) accurate development and interpretation of all internal controls Lab Interpretation Normal (test code = 51108-2) [facility] SARS-COV-2 ANTIGEN (BINAX NOW)2023-05-02 22:10:00 Test Item Value Reference Range Interpretation Comments POCT SARS-COV-2 ANTIGEN (test Not Detected Not Detected code = 47040-2) On board controls acceptable Yes with C Line (test code = 3574) [facility] SARS-COV-2 ANTIGEN (BINAX NOW)2023-04-02 18:54:00 Test Item Value Reference Range Interpretation Comments POCT SARS-COV-2 ANTIGEN Not Detected Not Detected (test code = 31259-9) On board controls Yes acceptable with C Line (test code = 3574) BRITTANY (test code = BRITTANY) accurate development and interpretation of all internal controls Lab Interpretation Normal (test code = 68009-4) [facility] [id number] 22:50:48 Test Item Value Reference Range Interpretation Comments TROPONIN I (test code = 0.000 ng/mL <=0.034 2201673036) BRITTANY (test code = BRITTANY) Reference (Normal) [...] biotin. Lab Interpretation Normal (test code = 05942-2) [facility]2023-06-23 22:41:08 Test Item Value Reference Range Interpretation Comments MAGNESIUM (test code = 9698722944) 1.9 mg/dL 1.7-2.4 Lab Interpretation (test code = Normal 56733-8) [facility] METABOLIC PANEL (53788)2023-02-15 22:41:07 Test Item Value Reference Range Interpretation Comments NA (test code = 140 mmol/L 135-145 6524545674) K (test code = 4.3 mmol/L 3.5-5.0 7431657673) CL (test code = 105 mmol/L 98-108 9087106016) CO2 TOTAL (test code = 25 mmol/L 23-31 1276427514) AGAP (test code = 10 2-16 0234658420) BUN (test code = 16 mg/dL 7-23 4539521268) GLUCOSE (test code = 68 mg/dL 70-110 L 4982542899) CREATININE (test code = 0.63 mg/dL 0.50-1.04 4117316748) TOTAL BILI (test code = 0.5 mg/dL 0.1-1.6 4383101068) CALCIUM (test code = 9.2 mg/dL 8.6-10.6 2776023515) T PROTEIN (test code = 7.5 g/dL 6.3-8.2 3194643965) ALBUMIN (test code = 4.5 g/dL 3.5-5.0 0065800711) ALK PHOS (test code = 73 U/L 34-122 5062650199) ALTv (test code = 42 U/L 5-35 H 1742-6) AST(SGOT) (test code = 31 U/L 13-40 0151391568) eGFR (test code = 101.3 mL/min/1.73m2 7000203398) BRITTANY (test code = BRITTANY) Association of [...] tests). Lab Interpretation Abnormal (test code = 11395-0) [facility]2023-[facility]-23 22:40:52 Test Item Value Reference Range Interpretation Comments LIPASE (test code = 6364599396) 106 U/L 0-220 Lab Interpretation (test code = Normal 04344-8) [facility] WITH [id number] 22:26:28 Test Item Value Reference Range Interpretation Comments WBC (test code = 6.47 See_Comment [Automated 6690-2) message] The sy stem [...] RDW-SD (test code = 42.1 fL 39.0-49.9 42514-3) RDW-CV (test code = 12.7 % 12.0-15.5 788-0) PLT (test code = 257 See_Comment [Automated 777-3) message] The sy stem which generated this result transmitted reference range : 166 - 358 10*3/ ?L. The reference r tae was not used to interpret this result as normal/abnormal . MPV (test code = 11.1 fL 9.5-12.9 45833-7) NRBC/100 WBC (test 0.0 See_Comment [Automat ed code = 3965829156) message] The system which generated this result transmitted reference range : 0.0 - 10.0 /100 WBCs. The refer ence range was not u sed to interpret th is result as normal/abnormal . NRBC x10^3 (test code See_Comment [Auto mated = 3280666683) message] The s ystem which generated this result transmitted reference range : 10*3/?L. The reference range was not used to interpret this result as normal/abnormal . GRAN MAT (NEUT) % 52.3 % (test code = 770-8) IMM GRAN % (test code 0.50 % = 5732608407) LYMPH % (test code = 32.5 % 736-9) MONO % (test code = 9.1 % 5905-5) EOS % (test code = 4.2 % 713-8) BASO % (test code = 1.4 % 706-2) GRAN MAT x10^3(ANC) 3.39 10*3/uL 1.88-7.09 (test code = 1162620927) IMM GRAN x10^3 (test 0.03 10*3/uL 0.00-0.06 code = 7795153408) LYMPH x10^3 (test code 2.10 10*3/uL 1.32-3.29 = 731-0) MONO x10^3 (test code 0.59 10*3/uL 0.33-0.92 = 742-7) EOS x10^3 (test code = 0.27 10*3/uL 0.03-0.39 711-2) BASO x10^3 (test code 0.09 10*3/uL 0.01-0.07 H = 704-7) Lab Interpretation Abnormal (test code = 40616-4) [facility] SARS-COV-2 ANTIGEN (BINAX NOW)2022-12-05 20:09:00 Test Item Value Reference Range Interpretation Comments POCT SARS-COV-2 ANTIGEN (test Not Detected Not Detected code = 83501-0) On board controls acceptable Yes with C Line (test code = 3574) Lab Interpretation (test code = Normal 54455-8) [facility] METABOLIC PANEL (NA, K, CL, CO2, GLUCOSE, BUN, CREATININE, CA)2022-01-05 16:31:47 Test Item Value Reference Range Interpretation Comments NA (test code = 142 mmol/L 135-145 0783929394) K (test code = 4.2 mmol/L 3.5-5.0 2372008777) CL (test code = 109 mmol/L 98-108 H 0909946993) CO2 TOTAL (test code = 22 mmol/L 23-31 L 2175592926) AGAP (test code = 2-16 9253037878) BUN (test code = 12 mg/dL 7-23 6105979664) GLUCOSE (test code = 89 mg/dL 70-110 6395450132) CREATININE (test code = 0.75 mg/dL 0.50-1.04 2716044525) CALCIUM (test code = 8.9 mg/dL 8.6-10.6 7488694907) eGFR (test code = mL/min/1.73m2 2328916362) BRITTANY (test code = BRITTANY) Association of [...] tests). Lab Interpretation Abnormal (test code = 05249-5) [facility]enton[facility]AT[facility] FUNCTION PANEL (54056) (ALB,T.PRO,BILI T,BU/BC,ALT,AST,ALK PHOS)2022-01-05 16:31:47 Test Item Value Reference Range Interpretation Comments TOTAL BILI (test code = 0786969764) 0.4 mg/dL 0.1-1.1 BILI UNCON (test code = 4158346155) 0.2 mg/dL 0.1-1.1 BILI CONJ (test code = 0177351801) 0.0 mg/dL 0.0-0.3 T PROTEIN (test code = 1390757326) 7.1 g/dL 6.3-8.2 ALBUMIN (test code = 1762904397) 4.4 g/dL 3.5-5.0 ALK PHOS (test code = 2302466655) 68 U/L 34-122 ALTv (test code = 1742-6) 21 U/L 5-35 AST(SGOT) (test code = 3901754110) 22 U/L 13-40 Lab Interpretation (test code = Normal 06171-3) [facility]22-[facility]-13 16:31:47 Test Item Value Reference Range Interpretation Comments LIPASE (test code = 2592188221) 123 U/L 0-220 Lab Interpretation (test code = Normal 30520-1) [facility] WITH [id number] 16:18:07 Test Item Value Reference Range Interpretation Comments WBC (test code = See_Comment [Automated 6612-2) message] The sy stem which generated this result transmitted reference range : 4.30 - 11.10 10*3/?L. The reference range was not used to interpret this result as normal/abnormal . RBC (test code = See_Comment [Automated 202-8) message] The sy stem which generated this [...] RDW-SD (test code = 41.6 fL 39.0-49.9 30160-8) RDW-CV (test code = 12.6 % 12.0-15.5 788-0) PLT (test code = See_Comment [Automated 777-3) message] The sy stem which generated this result transmitted reference range : 166 - 358 10*3/ ?L. The reference r tae was not used to interpret this result as normal/abnormal . MPV (test code = 10.4 fL 9.5-12.9 37703-9) NRBC/100 WBC (test See_Comment [Automat ed code = 1966874495) message] The system which generated this result transmitted reference range : 0.0 - 10.0 /100 WBCs. The refer ence range was not u sed to interpret th is result as normal/abnormal . NRBC x10^3 (test code <0.01 See_Comment [Auto mated = 4802024868) message] The s ystem which generated this result transmitted reference range : 10*3/?L. The reference range was not used to interpret this result as normal/abnormal . GRAN MAT (NEUT) % 53.5 % (test code = 770-8) IMM GRAN % (test code 0.60 % = 1606444497) LYMPH % (test code = 28.5 % 736-9) MONO % (test code = 8.6 % 5905-5) EOS % (test code = 7.7 % 713-8) BASO % (test code = 1.1 % 706-2) GRAN MAT x10^3(ANC) 3.35 10*3/uL 1.88-7.09 (test code = 0939682410) IMM GRAN x10^3 (test 0.04 10*3/uL 0.00-0.06 code = 0314616225) LYMPH x10^3 (test code 1.79 10*3/uL 1.32-3.29 = 731-0) MONO x10^3 (test code 0.54 10*3/uL 0.33-0.92 = 742-7) EOS x10^3 (test code = 0.48 10*3/uL 0.03-0.39 H 711-2) BASO x10^3 (test code 0.07 10*3/uL 0.01-0.07 = 704-7) Lab Interpretation Abnormal (test code = 34122-6) [facility] [id number] 16:08:00 Test Item Value Reference Range Interpretation Comments POCT PREG (test code = 1605) Negative On board controls acceptable with Present C Line (test code = 3574) POCT PREG LOT # (test code = 3575) [id number] POCT PREG TEST DATE (test 05/25/2023 code = 3576) Lab Interpretation (test code = Normal 87945-6) [facility]"
[2023-07-15 15:45] LABS: Absolute Lymphocytes (CBC) 0.8 K/uL (0.7-4.9); Hematocrit 39.3 % (36.0-45.0); Lymphocytes % 13.7 % (15.3-44.8); MCV 88.3 fL (80-100); MPV 8.6 fL (7.6-11.3); Platelets 186 thou/uL (152-406); RBC Red Blood Cell Count 4.46 M/uL (3.86-4.86)
[2023-07-15] MEDS ORDERED: ALBUTEROL 2.5 MG/3 ML NEB SOL ONE (15:52)
[2023-07-15] MEDS ORDERED: METHYLPREDNISOLONE 125 MG INJ ONE (15:52)
[2023-07-15] MEDS ORDERED: IPRATROPIUM BROM 0.5MG/2.5ML ONE (15:52)
[2023-07-15] MEDS ORDERED: NA CHLORIDE 0.9% 1,000 ML ONE (15:52)
--- NOTE | 2023-07-15 15:52 | RAD REPORT ---
EXAM DESCRIPTION: RAD - Chest Single View - 07/15/2023 3:38 pm CLINICAL HISTORY: COUGH Chest pain. COMPARISON: Chest Single View dated 05/16/2023; Chest Single View dated 07/29/2022; Chest Pa And Lat ( 2 Views) dated 05/18/2022; Chest Single View dated 11/01/2020 FINDINGS: Portable technique limits examination quality. The lungs are grossly clear. The heart is normal in size. No displaced fractures. IMPRESSION: No acute intrathoracic process suspected.
[2023-07-15 16:04] LABS: ALT/SGPT 31 U/L (13-56); AST/SGOT 15 U/L (15-37); Albumin 3.5 g/dL (3.4-5.0); Alkaline Phosphatase 92 U/L (45-117); BUN Blood Urea Nitrogen 8 mg/dL (7-18); Bicarbonate 23 mEq/L (21-32); Bilirubin Total 0.2 mg/dL (0.2-1.0); Glomerular Filtration Rate 100 ml/min (=/>90); Glucose Level 91 mg/dL (74-106); Magnesium 1.9 mg/dL (1.6-2.4); NT PRO-BNP 18 pg/mL (<125); Potassium 3.2 mEq/L (3.5-5.1); Protein, Total 6.7 g/dL (6.4-8.2); Sodium Level 141 mEq/L (136-145); Troponin High Sensitivity 3.2 pg/mL (<58.9)
[2023-07-15 16:05] LABS: Bilirubin Direct < 0.1 mg/dL (0-0.2); Bilirubin Indirect, Calculated ND mg/dL (0.2-0.8)
--- NOTE | 2023-07-15 16:40 | EDPHYS ---
Physician Documentation [facility] Name: Joy Strauss Age: 48 yrs Sex: Female : 1975 Arrival Date: 07/15/2023 Time: 14:24 Bed 20 Private MD: ED Physician Morgan Santana HPI: 07/15 15:17 This 48 yrs old Female presents to ER via Ambulatory with complaints of Breathing rt Difficulty, Pain with Breathing. 15:17 Patient with history of asthma presents to the ED with wheezing, difficulty breathing. rt Patient was diagnosed with influenza about 1 week ago, has had progressively worsening breathing difficulty since then. She does have a chest pain with coughing. She denies other acute complaints at this time, symptoms are moderate in severity, no other aggravating or alleviating factors.. Historical: - Allergies: 14:32 NKA; hb - PMHx: 14:32 Asthma; Back pain; Chronic pain; Degenerative disc disease; herniated discs; Lupus; RA; hb scoliosis; - PSHx: 14:32 Cholecystectomy; hb - Immunization history:: Adult Immunizations up to date. - Social history:: Smoking status: Patient denies any tobacco usage or history of. - Family history:: not pertinent. ROS: 15:17 Constitutional: Negative for fever, chills, and weight loss, Abdomen/GI: Negative for rt abdominal pain, nausea, vomiting, diarrhea, and constipation, MS/Extremity: Negative for injury and deformity, Skin: Negative for injury, rash, and discoloration, Neuro: Negative for headache, weakness, numbness, tingling, and seizure, Psych: Negative for depression, anxiety, suicide ideation, homicidal ideation, and hallucinations, 15:17 Cardiovascular: Positive for chest pain, Negative for edema, 15:17 Respiratory: Positive for cough, shortness of breath, Exam: 15:17 Constitutional: This is a well developed, well nourished patient who is awake, alert, rt and in no acute distress. Head/Face: Normocephalic, atraumatic. Chest/axilla: Normal chest wall appearance and motion. Nontender with no deformity. No lesions are appreciated. Cardiovascular: Regular rate and rhythm with a normal S1 and S2. No gallops, murmurs, or rubs. Normal PMI, no JVD. No pulse deficits. Abdomen/GI: Soft, non-tender, with normal bowel sounds. No distension or tympany. No guarding or rebound. No evidence of tenderness throughout. Skin: Warm, dry with normal turgor. Normal color with no rashes, no lesions, and no evidence of cellulitis. MS/ Extremity: Pulses equal, no cyanosis. Neurovascular intact. Full, normal range of motion. Neuro: Awake and alert, GCS 15, oriented to person, place, time, and situation. Cranial nerves II-XII grossly intact. Motor strength 5/5 in all extremities. Sensory grossly intact. Cerebellar exam normal. Normal gait. Psych: Awake, alert, with orientation to person, place and time. Behavior, mood, and affect are within normal limits. 15:17 Respiratory: Wheezes heard on all lung santa, no respiratory distress, 20:42 ECG was reviewed by the Attending Physician. rt Vital Signs: 14:30 BP 145 / 92; Pulse 118; Resp 24; Temp 99.9(TE); Pulse Ox 99% on R/A; Weight 86.18 kg; hb Height 5 ft. 0 in. ; Pain 6/10; 15:47 Pulse 101; Resp 20; Pulse Ox 98% on R/A; ll1 16:12 Pulse 100; Resp 20; Pulse Ox 97% on R/A; ll1 16:47 BP 124 / 87; Pulse 101; Resp 19; Pulse Ox 97% on R/A; ll1 14:30 Body Mass Index 37.11 (86.18 kg, 152.4 cm) hb 14:30 Pain Scale: Adult hb MDM: 14:37 Patient medically screened. rt 20:42 Differential diagnosis: Asthma exacerbation, pneumonia, pneumothorax. Data reviewed: rt vital signs, nurses notes, lab test result(s), EKG, radiologic studies. Consideration of Admission/Observation Escalation of care including admission/observation considered. I considered the following discharge prescriptions or medication management in the emergency department Medications were administered in the Emergency Department. See MAR. Independent interpretation of the following test(s) in the Emergency Department X-Ray: My interpretation is No consolidation seen on interpretation of x-ray images. Test considered but Not performed: CT: Patient with known influenza, wheezing on exam, resolution of symptoms with treatment in the ED as well as resolution of tachycardia. Low suspicion for PE clinically, CT [place] not indicated.. Counseling: I had a detailed discussion with the patient and/or guardian regarding the historical points, exam findings, and any diagnostic results supporting the discharge/admit diagnosis, lab results, radiology results, the need for outpatient follow up, to return to the emergency department if symptoms worsen or persist or if there are any questions or concerns that arise at home. Response to treatment: the patient's symptoms have markedly improved after treatment. 07/15 14:45 Order name: Basic Metabolic Panel; Complete Time: 16:16 rt 07/15 14:45 Order name: CBC with Diff; Complete Time: 15:58 rt 07/15 14:45 Order name: LFT's; Complete Time: 16:16 rt 07/15 14:45 Order name: Magnesium; Complete Time: 16:16 rt 07/15 14:45 Order name: NT PRO-BNP; Complete Time: 16:16 rt 07/15 14:45 Order name: Troponin HS; Complete Time: 16:16 rt 07/15 14:45 Order name: XRAY Chest (1 view); Complete Time: 15:58 rt 07/15 14:45 Order name: EKG; Complete Time: 14:45 rt 07/15 14:45 Order name: Cardiac monitoring; Complete Time: 15:48 rt 07/15 14:45 Order name: EKG - Nurse/Tech; Complete Time: 15:48 rt 07/15 14:45 Order name: IV Saline Lock; Complete Time: 15:31 rt 07/15 14:45 Order name: Labs collected and sent; Complete Time: 15:31 rt 07/15 14:45 Order name: O2 Per Protocol; Complete Time: 15:31 rt 07/15 14:45 Order name: O2 Sat Monitoring; Complete Time: 15:31 rt EC:42 Rate is 105 beats/min. Rhythm is regular, Sinus tachycardia with No ectopy. QRS Davis is rt Normal. OR interval is normal. QRS interval is normal. QT interval is normal. No Q waves. T waves are Normal. No ST changes noted. Interpreted by me. Administered Medications: 15:46 Drug: DuoNeb Nebulize (3:1) (2.5 mg - 0.5 mg) 3 ml Nebulizer once Route: Nebulizer; ll1 16:06 Follow up: Response: No adverse reaction ll1 15:46 Drug: MethylPREDNISolone Sodium Succinate IM 125 mg IM once {Note: IV R FA.} Route: IM; ll1 Site: Other; 16:11 Follow up: Response: No adverse reaction ll1 15:46 Drug: NS 0.9% IV 1000 ml IV at 1 bolus Per protocol; 1000 mL bolus Route: IV; Rate: 1 ll1 bolus; Site: right forearm; 16:48 Follow up: Response: No adverse reaction; IV Status: Completed infusion; IV Intake: ll1 200ml Disposition Summary: 07/15/23 16:39 Discharge Ordered Notes: Location: Home rt Problem: new rt Symptoms: have improved rt Condition: Stable rt Diagnosis - Unspecified asthma with (acute) exacerbation rt Followup: rt - With: Private Physician - When: 2 - 3 days - Reason: Discharge Instructions: - Discharge Summary Sheet rt - Asthma, Adult rt - Influenza, Adult rt Forms: - Medication Reconciliation Form rt - Thank You Letter rt - Antibiotic Education rt - Prescription Opioid Use rt - Patient Portal Instructions rt - Leadership Thank You Letter rt Prescriptions: - albuterol sulfate 90 mcg/actuation Inhalation HFA Aerosol Inhaler - inhale 3 puff INHALATION route 6 times per day; 2 Each; Refills: 0, Product rt Selection Permitted - Albuterol Sulfate 2.5 mg /3 mL (0.083 %) Inhalation Solution for Nebulization - inhale 1 unit NEBULIZATION route every 4 hours As needed; 90 unit; Refills: 0, rt Product Selection Permitted - Prednisone 20 mg Oral Tablet - take 2 tablets ORAL route once daily for 5 days; 10 tablet; Refills: 0, Product rt Selection Permitted Signatures: Dispatcher [employer] Terri Serrano RN RN Amina Pantoja RN RN 1 Morgan Santana MD MD rt
--- NOTE | 2023-07-15 16:40 | ER ---
Nurse's Notes [facility] Name: Joy Strauss Age: 48 yrs Sex: Female : 1975 Arrival Date: 07/15/2023 Time: 14:24 Bed 20 [facility] MD: Diagnosis: Unspecified asthma with (acute) exacerbation Presentation: 07/15 14:30 Chief complaint: Diagnosed with Flu B a week ago, c/o worsening SOB and pain with hb breathing over the last few days. Coronavirus screen: Client presents with at least one sign or symptom that may indicate coronavirus-19. Provider contacted for isolation considerations. Ebola Screen: No symptoms or risks identified at this time. Initial Sepsis Screen: Does the patient meet any 2 criteria? HR > 90 bpm. No. Patient's initial sepsis screen is negative. Risk Assessment: Do you want to hurt yourself or someone else? Patient reports no desire to harm self or others. Onset of symptoms was July 05, 2023. 14:30 Method Of Arrival: Ambulatory hb 14:30 Acuity: FÉLIX 3 hb 15:15 Initial Sepsis Screen: Does the patient have a suspected source of infection? Yes: ll1 Productive cough/pneumonia. Historical: - Allergies: 14:32 NKA; hb - PMHx: 14:32 Asthma; Back pain; Chronic pain; Degenerative disc disease; herniated discs; Lupus; RA; hb scoliosis; - PSHx: 14:32 Cholecystectomy; hb - Immunization history:: Adult Immunizations up to date. - Social history:: Smoking status: Patient denies any tobacco usage or history of. - Family history:: not pertinent. Screenin:13 [facility] ED Fall Risk Assessment (Adult) Score/Fall Risk Level 0 - 2 = Low Risk ll1 Oriented to surroundings, Maintained a safe environment, Educated pt \T\ family on fall prevention, incl call for assistance when getting out of bed, Hourly rounding (assess needs \T\ fall precautionary measures) done. Abuse screen: Denies threats or abuse. Nutritional screening: No deficits noted. Tuberculosis screening: No symptoms or risk factors identified. Assessment: 15:10 General: Appears distressed, uncomfortable, Behavior is calm, cooperative, appropriate ll1 for age. Pain: Complains of pain in chest Pain does not radiate. Pain began 2-3 days ago. Cardiovascular: Rhythm is sinus tachycardia. Respiratory: Reports shortness of breath cough that is pain with cough pain with respiration Airway is patent Trachea midline Respiratory effort is labored, Breath sounds with wheezes bilaterally. 15:36 Reassessment: No changes from previously documented assessment. Patient and/or family ll1 updated on plan of care and expected duration. Pain level reassessed. 16:48 Reassessment: No changes from previously documented assessment. Patient and/or family ll1 updated on plan of care and expected duration. Pain level reassessed. Patient is alert, oriented x 3, equal unlabored respirations, skin warm/dry/pink. Vital Signs: 14:30 BP 145 / 92; Pulse 118; Resp 24; Temp 99.9(TE); Pulse Ox 99% on R/A; Weight 86.18 kg; hb Height 5 ft. 0 in. ; Pain 6/10; 15:47 Pulse 101; Resp 20; Pulse Ox 98% on R/A; ll1 16:12 Pulse 100; Resp 20; Pulse Ox 97% on R/A; ll1 16:47 BP 124 / 87; Pulse 101; Resp 19; Pulse Ox 97% on R/A; ll1 14:30 Body Mass Index 37.11 (86.18 kg, 152.4 cm) hb 14:30 Pain Scale: Adult hb ED Course: 14:26 Patient arrived in ED. mg5 14:32 Triage completed. hb 14:32 Arm band placed on. hb 14:33 Morgan Santana MD is Attending Physician. rt 15:20 Provided Education on: ER process and procedures. ll1 15:20 Inserted saline lock: 22 gauge in right forearm, using aseptic technique. Blood ll1 collected. 15:36 Amina Pantoja, SREEDHAR is Primary Nurse. ll1 15:40 XRAY Chest (1 view) In Process Unspecified. EDMS 16:13 No provider procedures requiring assistance completed. Patient maintains SpO2 ll1 saturation greater than 95% on room air. 16:14 Patient has correct armband on for positive identification. Bed in low position. Call ll1 light in reach. Client placed on continuous cardiac and pulse oximetry monitoring. NIBP monitoring applied. Administered Medications: 15:46 Drug: DuoNeb Nebulize (3:1) (2.5 mg - 0.5 mg) 3 ml Nebulizer once Route: Nebulizer; ll1 16:06 Follow up: Response: No adverse reaction ll1 15:46 Drug: MethylPREDNISolone Sodium Succinate IM 125 mg IM once {Note: IV R FA.} Route: IM; ll1 Site: Other; 16:11 Follow up: Response: No adverse reaction ll1 15:46 Drug: NS 0.9% IV 1000 ml IV at 1 bolus Per protocol; 1000 mL bolus Route: IV; Rate: 1 ll1 bolus; Site: right forearm; 16:48 Follow up: Response: No adverse reaction; IV Status: Completed infusion; IV Intake: ll1 200ml Medication: 16:14 VIS not applicable for this client. ll1 Intake: 16:48 IV: 200ml; Total: 200ml. ll1 Outcome: 16:39 Discharge ordered by . rt 16:50 Patient left the ED. iw Signatures: Dispatcher [employer] EDMS Yenny Morrissey RN RN iw Terri Claudio RN RN Amina Heredia RN RN ll1 Morgan Santana MD MD rt Makenna Henson mg5 Corrections: (The following items were deleted from the chart) 14:34 14:30 BP 145 / 92; Pulse 118bpm; Resp 20bpm; Pulse Ox 99% RA; Temp 99.9F Temporal; hb 86.18 kg; Height 5 ft. 0 in.; BMI: 37.1; Pain 6/10, Adult; hb
[2023-07-15 18:42] VITALS: TEMP 99.9
[2023-07-15 18:45] VITALS: O2SAT 97
[2023-07-15 18:46] VITALS: BP 124/87
--- NOTE | 2023-07-17 16:55 | EKG ---
Test Date: 2023-07-15 Test Time: 16:03:46 [employer]: MANDEEP MEASUREMENT RESULTS: Intervals: Rate: 105 MT: 136 QRSD: 68 QT: 320 QTc: 422 [place]: P: 38 MT: 136 QRS: 75 T: 60 INTERPRETIVE STATEMENTS: Sinus tachycardia Otherwise normal ECG Compared to ECG 05/16/2023 13:37:28 Sinus rhythm no longer present Short MT interval no longer present Electronically Signed On 07-17-23 16:50:55 [employer] by Renard Barbour
== END 2023-07-15 16:50 | disposition home or self-care (01) ==
LOC: ER 14:24
DX: J45.901 Unspecified asthma with (acute) exacerbation (principal)
CPT/HCPCS: 93005; 85025; 80048; 36415; 83735; 80076; 84484; 83880; 71045; 94640; 96360; 96372; 99285; J7613; J7644; J2930; J7030

== ENCOUNTER → 2023-10-14 | Emergency (ER) | payer OTHER ==
[~2023-10-14] MED LIST: MORPHINE 4 MG/ML SYR ONE; ONDANSETRON 4 MG (ODT) TAB ONE; PROMETHAZINE INJ 25 MG/ML AMP ONE
--- OUTSIDE RECORDS SUMMARY | 2023-10-14 18:50 | XMS REPORT | Continuity of Care Document ---
Author Name Unknown Address [address] [facility] [address] [place] [address] [facility] thconnect Address [address] [facility] [place] [address] Care Team Providers Care Music Professor Name Role Phone TONIO HIGGINSLois Yuan Primary Care Physician Unavailab Brandee Garcia Attending Clinician Unavailable Hakan CONTI Attending Clinician Unavailable Hakan Guzman Attending Clinician [phone] Doctor Unassigned, Geiger Attending Clinician U navailable LV WOFL Attending Clinician Unavailable Lv Elizalde Attending Clinician [phone] Unknown, Attending Attending Clinician Unavailab YANA Rider Attending Clinician Unavailable YANA HAWTHORNE Attending Clinician Unavailable NATALIA VÁSQUEZ Attending Clinician Unavailable Natalia Vega Attending Clinician [phone] Etta Solares RN Attending Clinician Unavailable MELISSA YANCEY Attending Clinician Unavailable Melissa Yancey MD Attending Clinician [phone] UNKNOWN, ATTENDING Attending Clinician Unavailab ARCENIO Martínez Attending Clinician Unavailable Arcenio Napoles PA-C Attending Clinician [phone] Fidencio Bass Attending Clinician [phone] Green ETHICS MANAGER, Mary Kay Attending Clinician [phone] DOMINIQUEGARY BRIAN Attending Clinician Unavailable Dominique ETHICS MANAGER, Cynise Attending Clinician [phone] Only, Ang Db Test Attending Clinician UnavailFIDENCIO Pollard Attending Clinician UnavailJENNA Pryor Attending Clinician Unavailable Jenna Garcia Attending Clinician [phone] Jason Perkins MD Attending Clinician + [phone] CARLOS ANDERSON Attending Clinician Unavailable Boby Bal DO Attending Clinician [phone] Willy Grace DO Attending Clinician [phone] Dionne Sierra NP Attending Clinician [phone] Tori Shaw DO Attending Clinician [phone] Kaylah Pool Attending Clinician [phone] RADIOLOGY Attending Clinician Unavailable Radiology Attending Clinician Unavailable KAYLAH WOLFF Attending Clinician Unavailable BOBY BAL Attending Clinician Unavailable ANDREW MAXWELL Attending Clinician Unavailable Hakan CONTI Admitting Clinician Unavailable GARY GONZALEZ Admitting Clinician Unavailable ADELFO MONTEIRO Admitting Clinician Unavailable BOBY BAL Admitting Clinician Unavailable Payers Payer Name Policy Type Policy Number Effective Date Expirati on Date Source MEDICARE PART A \\T\\ B [id number] 2006 00:00:00 [facility] MEDICAID [id number] 2016 00:00:00 [place] [id number] 2011 00:00:00 MEDICAID [id number] 2020 00:00:00 [facility] MEDIC[facility] [id number] 2006 00:00:00 [facility] MEDICAID MC [id number] 2020 00:00:[address] [facility] MEDIC[facility] [id number] 2006 00:00:00 [facility] [id number] 2019 00:00:00 2020 00:00:00 Problems Condition Name Condition Details Condition Category Status Onset Date Resolution Date Last Treatment Date Treating Clinician Comments Source Right ankle pain Right ankle pain Disease Active 05-15 00:00: 00 [facility] Encounter for sterilizat ion Encounter for sterilizat ion Disease Active 01-16 00:00: 00 [facility] Lupus Lupus Problem [facility] [id number] Body mass index [BMI] 35.0-35.9, adult Problem [facility] [id number] Morbid (severe) obesity due to excess calories Problem [facility] [id number] Uncomplica olivia opioid dependence Problem [facility] [id number] Current moderate episode of major depressive disorder without prior episode Problem [facility] [id number] Bipolar affective disorder, currently depressed, moderate Problem [facility] [id number] Primary insomnia Problem [facility] [id number] SPENCER (generaliz ed anxiety disorder) Problem [facility] [id number] Ulcerative colitis with complicati on, unspecifie d location Problem [facility] [id number] Chronic fatigue Problem [facility] [id number] Gastroesop hageal reflux disease without esophagiti s Problem [facility] [id number] Migraine without aura and without status migrainosu s, not intractabl e Problem [facility] [id number] Other chronic pain Problem [facility] [id number] DDD (degenerat bandar disc disease), lumbar Problem [facility] [id number] Vitamin D deficiency Problem [facility] [id number] Systemic lupus erythemato heather, unspecifie d SLE type, unspecifie d organ involvemen t status Problem [facility] Allergies, Adverse Reactions, Alerts Allergy Name Allergy Type Status Severity Reaction(s) Onset Date Inactive Date Treating Clinician Comments Source NO KNOWN ALLERGIE S Drug Class Active [facility] Social History Social Habit Start Date Stop Date Quantity Comments Source History of Tobacco Use [facility] Sex Assigned At [facility] Gender identity [facility] 2023-07-01 00:00:00 2023-07-01 00:00:00 0 /d [facility] Exposure to SARS-CoV-2 (event) 2022-11-25 00:00:00 2022-12-05 14:43:00 Not sure [facility] History of Social function 2022-12-05 00:00:00 2022-12-05 00:00:00 [facility] Tobacco use and exposure 2016-05-15 00:00:00 2016-05-15 00:00:00 Smokeless tobacco non-user [facility] Smoking Status Start Date Stop Date Source Never smoked tobacco [facility] Medications Ordered Medication Name Filled Medication Name Start Date Stop Date Current Medication? Ordering Clinician Indication Dosage Frequency Signature (SIG) Comments Components Source methylPREDN ISolone 4 mg tablets 2022-08 00:00: 00 Yes [id number] Take by mouth SEE-INSTRU CTIONS. follow package directions [facility] methylpredn isolone sod succ (SOLU-MEDRO L) injection 125 mg 2022-08 20:30: 00 08-15 20:02 :00 No 125mg 125 mg, Intravenou s, ONCE, 1 dose, On Portia 08/15/23 at 1430, Routine [facility] oseltamivir (TAMIFLU) 75 mg capsule 2022-08 00:00: 00 07-07 05:59 :00 No [id number] 75mg Take 1 capsule by mouth in the morning and 1 capsule in the evening. Do all this for 5 days. [facility] cephALEXin (KEFLEX) 500 mg capsule 2022-08 00:00: 00 07-06 05:59 :00 No [id number] 500mg Take 1 capsule by mouth 4 (four) times daily for 10 days. [facility] cephALEXin (KEFLEX) 500 mg capsule 2022-08 00:00: 00 07-06 05:59 :00 No [id number] 500mg Take 1 capsule by mouth 4 (four) times daily for 10 days. [facility] cephALEXin (KEFLEX) 500 mg capsule 2022-08 00:00: 00 07-06 05:59 :00 No [id number] 500mg Take 1 capsule by mouth 4 (four) times daily for 10 days. [facility] belimumab (BENLYSTA) 200 mg/mL AtIn 2022-08 0 17:41: 24 Yes INJECT 200MG SUBCUTANEO USLY ONCE A WEEK [facility] belimumab (BENLYSTA) 200 mg/mL AtWa 2022-08 17:41: 24 Yes INJECT 200MG SUBCUTANEO USLY ONCE A WEEK [facility] belimumab (BENLYSTA) 200 mg/mL AtWa 2022-08 0 17:41: 24 Yes INJECT 200MG SUBCUTANEO USLY ONCE A WEEK [facility] belimumab (BENLYSTA) 200 mg/mL AtIn 2022-08 0 17:41: 24 Yes INJECT 200MG SUBCUTANEO USLY ONCE A WEEK [facility] belimumab (BENLYSTA) 200 mg/mL AtIn 2022-08 0 17:41: 24 Yes INJECT 200MG SUBCUTANEO USLY ONCE A WEEK [facility] belimumab (BENLYSTA) 200 mg/mL AtIn 2022-08 0 17:41: 24 Yes INJECT 200MG SUBCUTANEO USLY ONCE A WEEK [facility] belimumab (BENLYSTA) 200 mg/mL AtIn 2022-08 0 17:41: 24 Yes INJECT 200MG SUBCUTANEO USLY ONCE A WEEK [facility] belimumab (BENLYSTA) 200 mg/mL AtIn 2022-08 0 17:41: 24 Yes INJECT 200MG SUBCUTANEO USLY ONCE A WEEK [facility] belimumab (BENLYSTA) 200 mg/mL AtIn 2022-08 0 17:41: 24 Yes INJECT 200MG SUBCUTANEO USLY ONCE A WEEK [facility] ondansetron 4 mg disintegrat ing tablet 2022-08 0 00:00: 00 Yes [id number] 4mg Take 1 tablet by mouth every 12 (twelve) hours as needed for Nausea and Vomiting (N/V). [facility] ondansetron 4 mg disintegrat ing tablet 2022-08 0 00:00: 00 Yes [id number] 4mg Take 1 tablet by mouth every 12 (twelve) hours as needed for Nausea and Vomiting (N/V). [facility] ondansetron 4 mg disintegrat ing tablet 2022-08 00:00: 00 Yes [id number] 4mg Take 1 tablet by mouth every 12 (twelve) hours as needed for Nausea and Vomiting (N/V). [facility] ondansetron 4 mg disintegrat ing tablet 2022-08 00:00: 00 Yes [id number] 4mg Take 1 tablet by mouth every 12 (twelve) hours as needed for Nausea and Vomiting (N/V). [facility] ondansetron 4 mg disintegrat ing tablet 2022-08 00:00: 00 Yes [id number] 4mg Take 1 tablet by mouth every 12 (twelve) hours as needed for Nausea and Vomiting (N/V). [facility] ondansetron 4 mg disintegrat ing tablet 2022-08 00:00: 00 Yes [id number] 4mg Take 1 tablet by mouth every 12 (twelve) hours as needed for Nausea and Vomiting (N/V). [facility] ondansetron 4 mg disintegrat ing tablet 2022-08 0 00:00: 00 Yes [id number] 4mg Take 1 tablet by mouth every 12 (twelve) hours as needed for Nausea and Vomiting (N/V). [facility] ondansetron 4 mg disintegrat ing tablet 2022-08 0 00:00: 00 Yes [id number] 4mg Take 1 tablet by mouth every 12 (twelve) hours as needed for Nausea and Vomiting (N/V). [facility] ondansetron 4 mg disintegrat ing tablet 2022-08 0 00:00: 00 Yes [id number] 4mg Take 1 tablet by mouth every 12 (twelve) hours as needed for Nausea and Vomiting (N/V). [facility] dicyclomine 10 mg capsule 05-02 00:00: 00 05-10 04:59 :00 No [id number] 10mg Take 1 capsule by mouth 4 (four) times daily for 7 days. [facility] ondansetron 4 mg disintegrat ing tablet 05-02 00:00: 00 05-08 04:59 :00 No [id number] 4mg Take 1 tablet by mouth every 8 (eight) hours as needed for Nausea and Vomiting (N/V) for up to 5 days. [facility] proMETHazin e (PHENERGAN) tablet 25 mg 02-16 00:45: 00 02-16 00:31 :00 No 25mg 25 mg, Oral, ONCE, 1 dose, On Sat02/15/23 at 1945, TOY [facility] iopamidol (ISOVUE 370-500 mL) injection 80 mL 02-15 23:15: 00 02-15 23:15 :00 No [id number] 80mL 80 mL, Intravenou s, ONCE, 1 dose, On Sat02/15/23 at 1815, Routine [facility] NaCl 0.9% (NS) bolus infusion 1,000 mL 02-15 22:45: 00 02-16 01:36 :00 No 1000mL at 999 mL/hr, 1,000 mL, IV Infusion, ONCE, 1 dose, On Sat02/15/23 at 1745, STAT [facility] proMETHazin e 25 mg tablet 02-15 00:00: 00 Yes [id number] 25mg Take 1 tablet by mouth every 4 (four) hours as needed for Nausea and Vomiting (N/V). [facility] proMETHazin e 25 mg tablet 02-15 00:00: 00 04-02 00:00 :00 No [id number] 25mg Take 1 tablet by mouth every 4 (four) hours as needed for Nausea and Vomiting (N/V). [facility] dicyclomine 10 mg capsule 0 -12 00:00: 00 Yes [id number] 10mg Take 1 capsule by mouth 4 (four) times daily. [facility] dicyclomine 10 mg capsule 12 00:00: 00 Yes [id number] 10mg Take 1 capsule by mouth 4 (four) times daily. [facility] dicyclomine 10 mg capsule 12 00:00: 00 04-02 00:00 :00 No [id number] 10mg Take 1 capsule by mouth 4 (four) times daily. [facility] Kenalog (Triamcinol one) Kenalog (Triamcinol one) 2021-08 00:00: 00 No 40mg [facility] Kenalog (Triamcinol one) Kenalog (Triamcinol one) 2021-08 00:00: 00 No 40mg [facility] Kenalog (Triamcinol one) Kenalog (Triamcinol one) 2021-08 00:00: 00 No 40mg [facility] hydroxychlo roquine sulfate (PLAQUENIL ORAL) 2021-08 0-05 11:33: 32 Yes Take by mouth. [facility] hydroxychlo roquine sulfate (PLAQUENIL ORAL) 2021-08 0-05 11:33: 32 Yes Take by mouth. [facility] hydroxychlo roquine sulfate (PLAQUENIL ORAL) 2021-08 0-05 11:33: 32 Yes Take by mouth. [facility] hydroxychlo roquine sulfate (PLAQUENIL ORAL) 2021-08 0-05 11:33: 32 Yes Take by mouth. [facility] hydroxychlo roquine sulfate (PLAQUENIL ORAL) 2021-08 0-05 11:33: 32 Yes Take by mouth. [facility] hydroxychlo roquine sulfate (PLAQUENIL ORAL) 2021-08 0-05 11:33: 32 Yes Take by mouth. [facility] hydroxychlo roquine sulfate (PLAQUENIL ORAL) 2021-08 0-05 11:33: 32 Yes Take by mouth. [facility] hydroxychlo roquine sulfate (PLAQUENIL ORAL) 2021-08 0-05 11:33: 32 Yes Take by mouth. [facility] hydroxychlo roquine sulfate (PLAQUENIL ORAL) 2021-08 0-05 11:33: 32 Yes Take by mouth. [facility] hydroxychlo roquine sulfate (PLAQUENIL ORAL) 2021-08 0-05 11:33: 32 Yes Take by mouth. [facility] hydroxychlo roquine sulfate (PLAQUENIL ORAL) 2021-08 0-05 11:33: 32 Yes Take by mouth. [facility] hydroxychlo roquine sulfate (PLAQUENIL ORAL) 2021-08 0-05 11:33: 32 Yes Take by mouth. [facility] hydroxychlo roquine sulfate (PLAQUENIL ORAL) 2021-08 0-05 11:33: 32 Yes Take by mouth. [facility] hydroxychlo roquine sulfate (PLAQUENIL ORAL) 2021-08 0-05 11:33: 32 Yes Take by mouth. [facility] hydroxychlo roquine sulfate (PLAQUENIL ORAL) 2021-08 0-05 11:33: 32 Yes Take by mouth. [facility] hydroxychlo roquine sulfate (PLAQUENIL ORAL) 2021-08 0-05 11:33: 32 Yes Take by mouth. [facility] proMETHazin e 25 mg tablet 2021-08 0-05 00:00: 00 Yes [id number] 25mg Take 1 tablet by mouth every 6 (six) hours as needed for Nausea and Vomiting (N/V). [facility] proMETHazin e 25 mg tablet 2021-08 0-05 00:00: 00 Yes [id number] 25mg Take 1 tablet by mouth every 6 (six) hours as needed for Nausea and Vomiting (N/V). [facility] proMETHazin e 25 mg tablet 2021-08 0-05 00:00: 00 Yes [id number] 25mg Take 1 tablet by mouth every 6 (six) hours as needed for Nausea and Vomiting (N/V). [facility] proMETHazin e 25 mg tablet 2021-08 0-05 00:00: 00 Yes [id number] 25mg Take 1 tablet by mouth every 6 (six) hours as needed for Nausea and Vomiting (N/V). [facility] proMETHazin e 25 mg tablet 2021-08 0-05 00:00: 00 04-02 00:00 :00 No [id number] 25mg Take 1 tablet by mouth every 6 (six) hours as needed for Nausea and Vomiting (N/V). [facility] proMETHazin e 25 mg tablet 01-16 00:00: 00 01-22 04:59 :00 No [id number] 25mg Take 1 tablet by mouth every 6 (six) hours for 5 days. [facility] ondansetron (ZOFRAN (PF)) injection 4 mg 01-05 17:00: 01-05 16:46 :00 No 4mg 4 mg, Slow IV Push, ONCE, 1 dose, On Sat01/05/22 at 1200, TOY [facility] ketorolac tromethamin e (TORADOL) injection 15 mg 01-05 17:00: 00 01-05 17:00 :00 No 15mg 15 mg, Slow IV Push, ONCE, 1 dose, On Sat01/05/22 at 1200, TOY [facility] docusate 100 mg capsule 01-05 00:00: 00 02-05 04:59 :00 No [id number] 100mg Take 1 capsule by mouth daily for 30 days. [facility] docusate 100 mg capsule 01-05 00:00: 00 02-05 04:59 :00 No [id number] 100mg Take 1 capsule by mouth daily for 30 days. [facility] polyethylen e glycol 3350 (MIRALAX) 17 gram/dose powder 01-05 00:00: 00 01-11 04:59 :00 No [id number] 17g Take 17 g by mouth 2 (two) times daily for 5 days. [facility] sennosides (SENOKOT) 8.6 mg tablet 13 00:00: 00 01-11 04:59 :00 No [id number] 8.6mg Take 1 tablet by mouth daily for 5 days. [facility] hydroxychlo roquine sulfate (PLAQUENIL ORAL) 03-09 19:46: 21 Yes Take by mouth. [facility] hydroxychlo roquine sulfate (PLAQUENIL ORAL) 03-09 19:46: 21 Yes Take by mouth. [facility] hydroxychlo roquine sulfate (PLAQUENIL ORAL) 03-09 19:46: 21 Yes Take by mouth. [facility] hydroxychlo roquine sulfate (PLAQUENIL ORAL) 03-09 19:46: 21 Yes Take by mouth. [facility] hydroxychlo roquine sulfate (PLAQUENIL ORAL) 03-09 19:46: 21 Yes Take by mouth. [facility] proMETHazin e 25 mg suppository 03-09 00:00: 00 Yes [id number] 25mg Insert 1 Suppositor y into rectum every 4 (four) hours as needed for Nausea and Vomiting (N/V). [facility] proMETHazin e 25 mg suppository 03-09 00:00: 00 Yes [id number] 25mg Insert 1 Suppositor y into rectum every 4 (four) hours as needed for Nausea and Vomiting (N/V). [facility] proMETHazin e 25 mg suppository 03-09 00:00: 00 Yes [id number] 25mg Insert 1 Suppositor y into rectum every 4 (four) hours as needed for Nausea and Vomiting (N/V). [facility] proMETHazin e 25 mg suppository 03-09 00:00: 00 Yes [id number] 25mg Insert 1 Suppositor y into rectum every 4 (four) hours as needed for Nausea and Vomiting (N/V). [facility] proMETHazin e 25 mg suppository 15 00:00: 00 Yes [id number] 25mg Insert 1 Suppositor y into rectum every 4 (four) hours as needed for Nausea and Vomiting (N/V). [facility] proMETHazin e 25 mg suppository 15 00:00: 00 Yes [id number] 25mg Insert 1 Suppositor y into rectum every 4 (four) hours as needed for Nausea and Vomiting (N/V). [facility] proMETHazin e 25 mg suppository 03-09 00:00: 00 Yes [id number] 25mg Insert 1 Suppositor y into rectum every 4 (four) hours as needed for Nausea and Vomiting (N/V). [facility] proMETHazin e 25 mg suppository 03-09 00:00: 00 Yes [id number] 25mg Insert 1 Suppositor y into rectum every 4 (four) hours as needed for Nausea and Vomiting (N/V). [facility] proMETHazin e 25 mg suppository 03-09 00:00: 00 Yes [id number] 25mg Insert 1 Suppositor y into rectum every 4 (four) hours as needed for Nausea and Vomiting (N/V). [facility] proMETHazin e 25 mg suppository 03-09 00:00: 00 04-02 00:00 :00 No [id number] 25mg Insert 1 Suppositor y into rectum every 4 (four) hours as needed for Nausea and Vomiting (N/V). [facility] Omeprazole 20 MG Omeprazole 20 MG 1-0 6-17 00:00: 00 No QD Omeprazole 20 MG Omeprazole 20 MG Omeprazole 20 MG 1-0 6-17 00:00: 00 No QD Omeprazole 20 MG Omeprazole 20 MG Omeprazole 20 MG 1-0 6-17 00:00: 00 No QD Omeprazole 20 MG Omeprazole 20 MG Omeprazole 20 MG 1-0 6-17 00:00: 00 No QD Omeprazole 20 MG Omeprazole 20 MG Omeprazole 20 MG 1-0 6-17 00:00: 00 No QD Omeprazole 20 MG naproxen sodium (ANAPROX DS) 550 mg tablet 0 4-13 00:00: 00 Yes [id number] 550mg Take 1 tablet by mouth 2 (two) times daily with meals. [facility] methylPREDN ISolone (MEDROL, HERMAN,) 4 mg tablets 2020-0 4-13 00:00: 00 Yes [id number] Take by mouth SEE-INSTRU CTIONS. follow package directions [facility] naproxen sodium (ANAPROX DS) 550 mg tablet 2020-0 13 00:00: 00 Yes [id number] 550mg Take 1 tablet by mouth 2 (two) times daily with meals. [facility] methylPREDN ISolone (MEDROL, HERMAN,) 4 mg tablets 2020-0 13 00:00: 00 Yes [id number] Take by mouth SEE-INSTRU CTIONS. follow package directions [facility] naproxen sodium (ANAPROX DS) 550 mg tablet 2020-0 13 00:00: 00 Yes [id number] 550mg Take 1 tablet by mouth 2 (two) times daily with meals. [facility] methylPREDN ISolone (MEDROL, HERMAN,) 4 mg tablets 2020-0 13 00:00: 00 Yes [id number] Take by mouth SEE-INSTRU CTIONS. follow package directions [facility] naproxen sodium (ANAPROX DS) 550 mg tablet 2020-0 13 00:00: 00 Yes [id number] 550mg Take 1 tablet by mouth 2 (two) times daily with meals. [facility] methylPREDN ISolone (MEDROL, HERMAN,) 4 mg tablets 2020-0 413 00:00: 00 Yes [id number] Take by mouth SEE-INSTRU CTIONS. follow package directions [facility] naproxen sodium (ANAPROX DS) 550 mg tablet 2020-0 13 00:00: 00 Yes [id number] 550mg Take 1 tablet by mouth 2 (two) times daily with meals. [facility] methylPREDN ISolone (MEDROL, HERMAN,) 4 mg tablets 2020-0 -13 00:00: 00 Yes [id number] Take by mouth SEE-INSTRU CTIONS. follow package directions [facility] naproxen sodium (ANAPROX DS) 550 mg tablet 0 12-06 00:00: 00 Yes [id number] 550mg Take 1 tablet by mouth 2 (two) times daily with meals. [facility] methylPREDN ISolone (MEDROL, HERMAN,) 4 mg tablets 0 12-06 00:00: 00 Yes [id number] Take by mouth SEE-INSTRU CTIONS. follow package directions [facility] naproxen sodium (ANAPROX DS) 550 mg tablet 12-06 00:00: 00 Yes [id number] 550mg Take 1 tablet by mouth 2 (two) times daily with meals. [facility] methylPREDN ISolone (MEDROL, HERMAN,) 4 mg tablets 12-06 00:00: 00 Yes [id number] Take by mouth SEE-INSTRU CTIONS. follow package directions [facility] naproxen sodium (ANAPROX DS) 550 mg tablet 0 12-06 00:00: 00 Yes [id number] 550mg Take 1 tablet by mouth 2 (two) times daily with meals. [facility] methylPREDN ISolone (MEDROL, HERMAN,) 4 mg tablets 12-06 00:00: 00 Yes [id number] Take by mouth SEE-INSTRU CTIONS. follow package directions [facility] naproxen sodium (ANAPROX DS) 550 mg tablet 0 12-06 00:00: 00 Yes [id number] 550mg Take 1 tablet by mouth 2 (two) times daily with meals. [facility] methylPREDN ISolone (MEDROL, HERMAN,) 4 mg tablets 0 12-06 00:00: 00 Yes [id number] Take by mouth SEE-INSTRU CTIONS. follow package directions [facility] naproxen sodium (ANAPROX DS) 550 mg tablet 0 13 00:00: 00 04-02 00:00 :00 No [id number] 550mg Take 1 tablet by mouth 2 (two) times daily with meals. [facility] methylPREDN ISolone (MEDROL, HERMAN,) 4 mg tablets 0 4-13 00:00: 00 08-08 00:00 :00 No [id number] Take by mouth SEE-INSTRU CTIONS. follow package directions [facility] topiramate 100 mg tablet 2020-0 3-04 15:41: 01 Yes topiramate 100 mg tablet Take 1 tablet every day by oral route in the morning for 28 days. [facility] topiramate 100 mg tablet 2019-0 3-04 15:41: 01 Yes topiramate 100 mg tablet Take 1 tablet every day by oral route in the morning for 28 days. [facility] topiramate 100 mg tablet 2019-0 3-04 15:41: 01 Yes topiramate 100 mg tablet Take 1 tablet every day by oral route in the morning for 28 days. [facility] topiramate 100 mg tablet 2020-0 3-04 15:41: 01 Yes topiramate 100 mg tablet Take 1 tablet every day by oral route in the morning for 28 days. [facility] topiramate 100 mg tablet 2020-0 3-04 15:41: 01 Yes topiramate 100 mg tablet Take 1 tablet every day by oral route in the morning for 28 days. [facility] topiramate 100 mg tablet 2019-0 3-04 15:41: 01 Yes topiramate 100 mg tablet Take 1 tablet every day by oral route in the morning for 28 days. [facility] topiramate 100 mg tablet 2020-0 3-04 15:41: 01 Yes topiramate 100 mg tablet Take 1 tablet every day by oral route in the morning for 28 days. [facility] topiramate 100 mg tablet 2020-0 3-04 15:41: 01 Yes topiramate 100 mg tablet Take 1 tablet every day by oral route in the morning for 28 days. [facility] topiramate 100 mg tablet 2020-0 3-04 15:41: 01 Yes topiramate 100 mg tablet Take 1 tablet every day by oral route in the morning for 28 days. [facility] topiramate 100 mg tablet 2020-0 3-04 15:41: 01 Yes topiramate 100 mg tablet Take 1 tablet every day by oral route in the morning for 28 days. [facility] topiramate 100 mg tablet 2020-0 3-04 15:41: 01 Yes topiramate 100 mg tablet Take 1 tablet every day by oral route in the morning for 28 days. [facility] topiramate 100 mg tablet 2020-0 3-04 15:41: 01 Yes topiramate 100 mg tablet Take 1 tablet every day by oral route in the morning for 28 days. [facility] topiramate 100 mg tablet 2020-0 3-04 15:41: 01 Yes topiramate 100 mg tablet Take 1 tablet every day by oral route in the morning for 28 days. [facility] topiramate 100 mg tablet 2020-0 3-04 15:41: 01 Yes topiramate 100 mg tablet Take 1 tablet every day by oral route in the morning for 28 days. [facility] topiramate 100 mg tablet 2020-0 3-04 15:41: 01 Yes topiramate 100 mg tablet Take 1 tablet every day by oral route in the morning for 28 days. [facility] topiramate 100 mg tablet 2020-0 3-04 15:41: 01 Yes topiramate 100 mg tablet Take 1 tablet every day by oral route in the morning for 28 days. [facility] topiramate 100 mg tablet 2020-0 3-04 15:41: 01 Yes topiramate 100 mg tablet Take 1 tablet every day by oral route in the morning for 28 days. [facility] topiramate 100 mg tablet 2020-0 3-04 15:41: 01 Yes topiramate 100 mg tablet Take 1 tablet every day by oral route in the morning for 28 days. [facility] topiramate 100 mg tablet 2020-0 3-04 15:41: 01 Yes topiramate 100 mg tablet Take 1 tablet every day by oral route in the morning for 28 days. [facility] topiramate 100 mg tablet 2020-0 3-04 15:41: 01 Yes topiramate 100 mg tablet Take 1 tablet every day by oral route in the morning for 28 days. [facility] topiramate 100 mg tablet 2020-0 3-04 15:41: 01 Yes topiramate 100 mg tablet Take 1 tablet every day by oral route in the morning for 28 days. [facility] HYDROcodone -acetaminop hen (NORCO 5) 5-325 mg tablet 2018-08 13:34: 10 Yes 1{tbl} Take 1 tablet by mouth 2 (two) times daily. [facility] tiZANidine 4 mg capsule 2018-08 13:34: 10 Yes 4mg Take 4 mg by mouth 3 (three) times daily. [facility] phentermine 37.5 mg tablet 2018-08 13:34: 10 Yes 37.5mg Take 37.5 mg by mouth daily with breakfast. [facility] zolpidem (AMBIEN) 10 mg tablet 2018-08 13:34: 10 Yes 10mg Take 10 mg by mouth at bedtime as needed for Insomnia. [facility] SUMAtriptan (IMITREX) 50 mg tablet 2018-08 13:34: 10 Yes Imitrex 50 mg tablet Take 1 tablet every day by oral route as needed for 30 days. [facility] HYDROcodone -acetaminop hen (NORCO 5) 5-325 mg tablet 2018-08 13:34: 10 Yes 1{tbl} Take 1 tablet by mouth 2 (two) times daily. [facility] tiZANidine 4 mg capsule 2018-08 13:34: 10 Yes 4mg Take 4 mg by mouth 3 (three) times daily. [facility] phentermine 37.5 mg tablet 2018-08 13:34: 10 Yes 37.5mg Take 37.5 mg by mouth daily with breakfast. [facility] zolpidem (AMBIEN) 10 mg tablet 2018-08 13:34: 10 Yes 10mg Take 10 mg by mouth at bedtime as needed for Insomnia. [facility] SUMAtriptan (IMITREX) 50 mg tablet 2018-08 13:34: 10 Yes Imitrex 50 mg tablet Take 1 tablet every day by oral route as needed for 30 days. [facility] HYDROcodone -acetaminop hen (NORCO 5) 5-325 mg tablet 2018-08 13:34: 10 Yes 1{tbl} Take 1 tablet by mouth 2 (two) times daily. [facility] tiZANidine 4 mg capsule 2018-08 13:34: 10 Yes 4mg Take 4 mg by mouth 3 (three) times daily. [facility] phentermine 37.5 mg tablet 2018-08 13:34: 10 Yes 37.5mg Take 37.5 mg by mouth daily with breakfast. [facility] zolpidem (AMBIEN) 10 mg tablet 2018-08 13:34: 10 Yes 10mg Take 10 mg by mouth at bedtime as needed for Insomnia. [facility] SUMAtriptan (IMITREX) 50 mg tablet 2018-08 13:34: 10 Yes Imitrex 50 mg tablet Take 1 tablet every day by oral route as needed for 30 days. [facility] HYDROcodone -acetaminop hen (NORCO 5) 5-325 mg tablet 2018-08 13:34: 10 Yes 1{tbl} Take 1 tablet by mouth 2 (two) times daily. [facility] tiZANidine 4 mg capsule 2018-08 13:34: 10 Yes 4mg Take 4 mg by mouth 3 (three) times daily. [facility] phentermine 37.5 mg tablet 2018-08 13:34: 10 Yes 37.5mg Take 37.5 mg by mouth daily with breakfast. [facility] zolpidem (AMBIEN) 10 mg tablet 2018-08 13:34: 10 Yes 10mg Take 10 mg by mouth at bedtime as needed for Insomnia. [facility] SUMAtriptan (IMITREX) 50 mg tablet 2018-08 13:34: 10 Yes Imitrex 50 mg tablet Take 1 tablet every day by oral route as needed for 30 days. [facility] HYDROcodone -acetaminop hen (NORCO 5) 5-325 mg tablet 2018-08 13:34: 10 Yes 1{tbl} Take 1 tablet by mouth 2 (two) times daily. [facility] tiZANidine 4 mg capsule 2018-08 13:34: 10 Yes 4mg Take 4 mg by mouth 3 (three) times daily. [facility] phentermine 37.5 mg tablet 2018-08 13:34: 10 Yes 37.5mg Take 37.5 mg by mouth daily with breakfast. [facility] zolpidem (AMBIEN) 10 mg tablet 2018-08 13:34: 10 Yes 10mg Take 10 mg by mouth at bedtime as needed for Insomnia. [facility] SUMAtriptan (IMITREX) 50 mg tablet 2018-08 13:34: 10 Yes Imitrex 50 mg tablet Take 1 tablet every day by oral route as needed for 30 days. [facility] HYDROcodone -acetaminop hen (NORCO 5) 5-325 mg tablet 2018-08 13:34: 10 Yes 1{tbl} Take 1 tablet by mouth 2 (two) times daily. [facility] tiZANidine 4 mg capsule 2018-08 13:34: 10 Yes 4mg Take 4 mg by mouth 3 (three) times daily. [facility] phentermine 37.5 mg tablet 2018-08 13:34: 10 Yes 37.5mg Take 37.5 mg by mouth daily with breakfast. [facility] zolpidem (AMBIEN) 10 mg tablet 2018-08 13:34: 10 Yes 10mg Take 10 mg by mouth at bedtime as needed for Insomnia. [facility] SUMAtriptan (IMITREX) 50 mg tablet 2018-08 13:34: 10 Yes Imitrex 50 mg tablet Take 1 tablet every day by oral route as needed for 30 days. [facility] HYDROcodone -acetaminop hen (NORCO 5) 5-325 mg tablet 2018-08 13:34: 10 Yes 1{tbl} Take 1 tablet by mouth 2 (two) times daily. [facility] tiZANidine 4 mg capsule 2018-08 13:34: 10 Yes 4mg Take 4 mg by mouth 3 (three) times daily. [facility] phentermine 37.5 mg tablet 2018-08 13:34: 10 Yes 37.5mg Take 37.5 mg by mouth daily with breakfast. [facility] zolpidem (AMBIEN) 10 mg tablet 2018-08 13:34: 10 Yes 10mg Take 10 mg by mouth at bedtime as needed for Insomnia. [facility] SUMAtriptan (IMITREX) 50 mg tablet 2018-08 13:34: 10 Yes Imitrex 50 mg tablet Take 1 tablet every day by oral route as needed for 30 days. [facility] HYDROcodone -acetaminop hen (NORCO 5) 5-325 mg tablet 2018-08 13:34: 10 Yes 1{tbl} Take 1 tablet by mouth 2 (two) times daily. [facility] tiZANidine 4 mg capsule 2018-08 13:34: 10 Yes 4mg Take 4 mg by mouth 3 (three) times daily. [facility] phentermine 37.5 mg tablet 2018-08 13:34: 10 Yes 37.5mg Take 37.5 mg by mouth daily with breakfast. [facility] zolpidem (AMBIEN) 10 mg tablet 2018-08 13:34: 10 Yes 10mg Take 10 mg by mouth at bedtime as needed for Insomnia. [facility] SUMAtriptan (IMITREX) 50 mg tablet 2018-08 13:34: 10 Yes Imitrex 50 mg tablet Take 1 tablet every day by oral route as needed for 30 days. [facility] HYDROcodone -acetaminop hen (NORCO 5) 5-325 mg tablet 2018-08 13:34: 10 Yes 1{tbl} Take 1 tablet by mouth 2 (two) times daily. [facility] tiZANidine 4 mg capsule 2018-08 13:34: 10 Yes 4mg Take 4 mg by mouth 3 (three) times daily. [facility] phentermine 37.5 mg tablet 2018-08 13:34: 10 Yes 37.5mg Take 37.5 mg by mouth daily with breakfast. [facility] zolpidem (AMBIEN) 10 mg tablet 2018-08 13:34: 10 Yes 10mg Take 10 mg by mouth at bedtime as needed for Insomnia. [facility] SUMAtriptan (IMITREX) 50 mg tablet 2018-08 13:34: 10 Yes Imitrex 50 mg tablet Take 1 tablet every day by oral route as needed for 30 days. [facility] HYDROcodone -acetaminop hen (NORCO 5) 5-325 mg tablet 2018-08 13:34: 10 Yes 1{tbl} Take 1 tablet by mouth 2 (two) times daily. [facility] tiZANidine 4 mg capsule 2018-08 13:34: 10 Yes 4mg Take 4 mg by mouth 3 (three) times daily. [facility] phentermine 37.5 mg tablet 2018-08 13:34: 10 Yes 37.5mg Take 37.5 mg by mouth daily with breakfast. [facility] zolpidem (AMBIEN) 10 mg tablet 2018-08 13:34: 10 Yes 10mg Take 10 mg by mouth at bedtime as needed for Insomnia. [facility] SUMAtriptan (IMITREX) 50 mg tablet 2018-08 13:34: 10 Yes Imitrex 50 mg tablet Take 1 tablet every day by oral route as needed for 30 days. [facility] HYDROcodone -acetaminop hen (NORCO 5) 5-325 mg tablet 2018-08 13:34: 10 Yes 1{tbl} Take 1 tablet by mouth 2 (two) times daily. [facility] tiZANidine 4 mg capsule 2018-08 13:34: 10 Yes 4mg Take 4 mg by mouth 3 (three) times daily. [facility] phentermine 37.5 mg tablet 2018-08 13:34: 10 Yes 37.5mg Take 37.5 mg by mouth daily with breakfast. [facility] zolpidem (AMBIEN) 10 mg tablet 2018-08 13:34: 10 Yes 10mg Take 10 mg by mouth at bedtime as needed for Insomnia. [facility] SUMAtriptan (IMITREX) 50 mg tablet 2018-08 13:34: 10 Yes Imitrex 50 mg tablet Take 1 tablet every day by oral route as needed for 30 days. [facility] HYDROcodone -acetaminop hen (NORCO 5) 5-325 mg tablet 2018-08 13:34: 10 Yes 1{tbl} Take 1 tablet by mouth 2 (two) times daily. [facility] tiZANidine 4 mg capsule 2018-08 13:34: 10 Yes 4mg Take 4 mg by mouth 3 (three) times daily. [facility] phentermine 37.5 mg tablet 2018-08 13:34: 10 Yes 37.5mg Take 37.5 mg by mouth daily with breakfast. [facility] zolpidem (AMBIEN) 10 mg tablet 2018-08 13:34: 10 Yes 10mg Take 10 mg by mouth at bedtime as needed for Insomnia. [facility] SUMAtriptan (IMITREX) 50 mg tablet 2018-08 13:34: 10 Yes Imitrex 50 mg tablet Take 1 tablet every day by oral route as needed for 30 days. [facility] HYDROcodone -acetaminop hen (NORCO 5) 5-325 mg tablet 2018-08 13:34: 10 Yes 1{tbl} Take 1 tablet by mouth 2 (two) times daily. [facility] tiZANidine 4 mg capsule 2018-08 13:34: 10 Yes 4mg Take 4 mg by mouth 3 (three) times daily. [facility] phentermine 37.5 mg tablet 2018-08 13:34: 10 Yes 37.5mg Take 37.5 mg by mouth daily with breakfast. [facility] zolpidem (AMBIEN) 10 mg tablet 2018-08 13:34: 10 Yes 10mg Take 10 mg by mouth at bedtime as needed for Insomnia. [facility] SUMAtriptan (IMITREX) 50 mg tablet 2018-08 13:34: 10 Yes Imitrex 50 mg tablet Take 1 tablet every day by oral route as needed for 30 days. [facility] HYDROcodone -acetaminop hen (NORCO 5) 5-325 mg tablet 2018-08 13:34: 10 Yes 1{tbl} Take 1 tablet by mouth 2 (two) times daily. [facility] tiZANidine 4 mg capsule 2018-08 13:34: 10 Yes 4mg Take 4 mg by mouth 3 (three) times daily. [facility] phentermine 37.5 mg tablet 2018-08 13:34: 10 Yes 37.5mg Take 37.5 mg by mouth daily with breakfast. [facility] zolpidem (AMBIEN) 10 mg tablet 2018-08 13:34: 10 Yes 10mg Take 10 mg by mouth at bedtime as needed for Insomnia. [facility] SUMAtriptan (IMITREX) 50 mg tablet 2018-08 13:34: 10 Yes Imitrex 50 mg tablet Take 1 tablet every day by oral route as needed for 30 days. [facility] HYDROcodone -acetaminop hen (NORCO 5) 5-325 mg tablet 2018-08 13:34: 10 Yes 1{tbl} Take 1 tablet by mouth 2 (two) times daily. [facility] tiZANidine 4 mg capsule 2018-08 13:34: 10 Yes 4mg Take 4 mg by mouth 3 (three) times daily. [facility] phentermine 37.5 mg tablet 2018-08 13:34: 10 Yes 37.5mg Take 37.5 mg by mouth daily with breakfast. [facility] zolpidem (AMBIEN) 10 mg tablet 2018-08 13:34: 10 Yes 10mg Take 10 mg by mouth at bedtime as needed for Insomnia. [facility] SUMAtriptan (IMITREX) 50 mg tablet 2018-08 13:34: 10 Yes Imitrex 50 mg tablet Take 1 tablet every day by oral route as needed for 30 days. [facility] HYDROcodone -acetaminop hen (NORCO 5) 5-325 mg tablet 2018-08 13:34: 10 Yes 1{tbl} Take 1 tablet by mouth 2 (two) times daily. [facility] tiZANidine 4 mg capsule 2018-08 13:34: 10 Yes 4mg Take 4 mg by mouth 3 (three) times daily. [facility] phentermine 37.5 mg tablet 2018-08 13:34: 10 Yes 37.5mg Take 37.5 mg by mouth daily with breakfast. [facility] zolpidem (AMBIEN) 10 mg tablet 2018-08 13:34: 10 Yes 10mg Take 10 mg by mouth at bedtime as needed for Insomnia. [facility] SUMAtriptan (IMITREX) 50 mg tablet 2018-08 13:34: 10 Yes Imitrex 50 mg tablet Take 1 tablet every day by oral route as needed for 30 days. [facility] HYDROcodone -acetaminop hen (NORCO 5) 5-325 mg tablet 2018-08 13:34: 10 Yes 1{tbl} Take 1 tablet by mouth 2 (two) times daily. [facility] tiZANidine 4 mg capsule 2018-08 13:34: 10 Yes 4mg Take 4 mg by mouth 3 (three) times daily. [facility] phentermine 37.5 mg tablet 2018-08 13:34: 10 Yes 37.5mg Take 37.5 mg by mouth daily with breakfast. [facility] zolpidem (AMBIEN) 10 mg tablet 2018-08 13:34: 10 Yes 10mg Take 10 mg by mouth at bedtime as needed for Insomnia. [facility] SUMAtriptan (IMITREX) 50 mg tablet 2018-08 13:34: 10 Yes Imitrex 50 mg tablet Take 1 tablet every day by oral route as needed for 30 days. [facility] HYDROcodone -acetaminop hen (NORCO 5) 5-325 mg tablet 2018-08 13:34: 10 Yes 1{tbl} Take 1 tablet by mouth 2 (two) times daily. [facility] tiZANidine 4 mg capsule 2018-08 13:34: 10 Yes 4mg Take 4 mg by mouth 3 (three) times daily. [facility] phentermine 37.5 mg tablet 2018-08 13:34: 10 Yes 37.5mg Take 37.5 mg by mouth daily with breakfast. [facility] zolpidem (AMBIEN) 10 mg tablet 2018-08 13:34: 10 Yes 10mg Take 10 mg by mouth at bedtime as needed for Insomnia. [facility] SUMAtriptan (IMITREX) 50 mg tablet 2018-08 13:34: 10 Yes Imitrex 50 mg tablet Take 1 tablet every day by oral route as needed for 30 days. [facility] HYDROcodone -acetaminop hen (NORCO 5) 5-325 mg tablet 2018-08 13:34: 10 Yes 1{tbl} Take 1 tablet by mouth 2 (two) times daily. [facility] tiZANidine 4 mg capsule 2018-08 13:34: 10 Yes 4mg Take 4 mg by mouth 3 (three) times daily. [facility] phentermine 37.5 mg tablet 2018-08 13:34: 10 Yes 37.5mg Take 37.5 mg by mouth daily with breakfast. [facility] zolpidem (AMBIEN) 10 mg tablet 2018-08 13:34: 10 Yes 10mg Take 10 mg by mouth at bedtime as needed for Insomnia. [facility] SUMAtriptan (IMITREX) 50 mg tablet 2018-08 13:34: 10 Yes Imitrex 50 mg tablet Take 1 tablet every day by oral route as needed for 30 days. [facility] HYDROcodone -acetaminop hen (NORCO 5) 5-325 mg tablet 2018-08 13:34: 10 Yes 1{tbl} Take 1 tablet by mouth 2 (two) times daily. [facility] tiZANidine 4 mg capsule 2018-08 13:34: 10 Yes 4mg Take 4 mg by mouth 3 (three) times daily. [facility] phentermine 37.5 mg tablet 2018-08 13:34: 10 Yes 37.5mg Take 37.5 mg by mouth daily with breakfast. [facility] zolpidem (AMBIEN) 10 mg tablet 2018-08 13:34: 10 Yes 10mg Take 10 mg by mouth at bedtime as needed for Insomnia. [facility] SUMAtriptan (IMITREX) 50 mg tablet 2018-08 13:34: 10 Yes Imitrex 50 mg tablet Take 1 tablet every day by oral route as needed for 30 days. [facility] HYDROcodone -acetaminop hen (NORCO 5) 5-325 mg tablet 2018-08 13:34: 10 Yes 1{tbl} Take 1 tablet by mouth 2 (two) times daily. [facility] tiZANidine 4 mg capsule 2018-08 13:34: 10 Yes 4mg Take 4 mg by mouth 3 (three) times daily. [facility] phentermine 37.5 mg tablet 2018-08 13:34: 10 Yes 37.5mg Take 37.5 mg by mouth daily with breakfast. [facility] zolpidem (AMBIEN) 10 mg tablet 2018-08 13:34: 10 Yes 10mg Take 10 mg by mouth at bedtime as needed for Insomnia. [facility] SUMAtriptan (IMITREX) 50 mg tablet 2018-08 13:34: 10 Yes Imitrex 50 mg tablet Take 1 tablet every day by oral route as needed for 30 days. [facility] IBUPROFEN 400 mg tablet 11-09 00:00: 00 Yes 400mg Take 1 tablet by mouth every 6 (six) hours as needed for Pain (scale 1-3). [facility] IBUPROFEN 400 mg tablet 11-09 00:00: 00 Yes 400mg Take 1 tablet by mouth every 6 (six) hours as needed for Pain (scale 1-3). [facility] IBUPROFEN 400 mg tablet 11-09 00:00: 00 Yes 400mg Take 1 tablet by mouth every 6 (six) hours as needed for Pain (scale 1-3). [facility] IBUPROFEN 400 mg tablet 11-09 00:00: 00 Yes 400mg Take 1 tablet by mouth every 6 (six) hours as needed for Pain (scale 1-3). [facility] IBUPROFEN 400 mg tablet 11-09 00:00: 00 Yes 400mg Take 1 tablet by mouth every 6 (six) hours as needed for Pain (scale 1-3). [facility] IBUPROFEN 400 mg tablet 11-09 00:00: 00 Yes 400mg Take 1 tablet by mouth every 6 (six) hours as needed for Pain (scale 1-3). [facility] IBUPROFEN 400 mg tablet 11-09 00:00: 00 Yes 400mg Take 1 tablet by mouth every 6 (six) hours as needed for Pain (scale 1-3). [facility] IBUPROFEN 400 mg tablet 11-09 00:00: 00 12-05 00:00 :00 No 400mg Take 1 tablet by mouth every 6 (six) hours as needed for Pain (scale 1-3). [facility] omeprazole (PRILOSEC) 40 mg capsule 01-09 00:00: 00 Yes 40mg Take 1 capsule by mouth daily. [facility] omeprazole (PRILOSEC) 40 mg capsule 01-09 00:00: 00 Yes 40mg Take 1 capsule by mouth daily. [facility] omeprazole (PRILOSEC) 40 mg capsule 01-09 00:00: 00 Yes 40mg Take 1 capsule by mouth daily. [facility] omeprazole (PRILOSEC) 40 mg capsule 01-09 00:00: 00 Yes 40mg Take 1 capsule by mouth daily. [facility] omeprazole (PRILOSEC) 40 mg capsule 01-09 00:00: 00 Yes 40mg Take 1 capsule by mouth daily. [facility] omeprazole (PRILOSEC) 40 mg capsule 01-09 00:00: 00 Yes 40mg Take 1 capsule by mouth daily. [facility] omeprazole (PRILOSEC) 40 mg capsule 01-09 00:00: 00 Yes 40mg Take 1 capsule by mouth daily. [facility] omeprazole (PRILOSEC) 40 mg capsule 01-09 00:00: 00 12-05 00:00 :00 No 40mg Take 1 capsule by mouth daily. [facility] Vraylar 6 MG Vraylar 6 MG No 1{capsu le} QD Vraylar 6 MG Imitrex Imitrex No Imitrex Ambien 10 MG Ambien 10 MG No 1{table t_at_be dtime_a s_neede d} QD Ambien 10 MG HYDROcodone -Acetaminop hen HYDROcodone -Acetaminop hen No HYDROcodon e-Acetamin ophen Promethazin e HCl 12.5 MG Promethazin e HCl 12.5 MG No 1{suppo sitory_ as_need ed} Promethazi ne HCl 12.5 MG tiZANidine HCl 4 MG tiZANidine HCl 4 MG No 1{table t_as_ne eded} TID tiZANidine HCl 4 MG Vraylar 6 MG Vraylar 6 MG No 1{capsu le} QD Vraylar 6 MG HYDROcodone -Acetaminop hen HYDROcodone -Acetaminop hen No HYDROcodon e-Acetamin ophen Vraylar 6 MG Vraylar 6 MG No 1{capsu le} QD Vraylar 6 MG Imitrex Imitrex No Imitrex tiZANidine HCl 4 MG tiZANidine HCl 4 MG No 1{table t_as_ne eded} TID tiZANidine HCl 4 MG Ambien 10 MG Ambien 10 MG No 1{table t_at_be dtime_a s_neede d} QD Ambien 10 MG Promethazin e HCl 12.5 MG Promethazin e HCl 12.5 MG No 1{suppo sitory_ as_need ed} Promethazi ne HCl 12.5 MG Ambien 10 MG Ambien 10 MG No 1{table t_at_be dtime_a s_neede d} QD Ambien 10 MG Imitrex Imitrex No Imitrex Promethazin e HCl 12.5 MG Promethazin e HCl 12.5 MG No 1{suppo sitory_ as_need ed} Promethazi ne HCl 12.5 MG tiZANidine HCl 4 MG tiZANidine HCl 4 MG No 1{table t_as_ne eded} TID tiZANidine HCl 4 MG Imuran 50 MG Imuran 50 MG No Imuran 50 MG Plaquenil 200 MG Plaquenil 200 MG No Plaquenil 200 MG Vraylar 6 MG Vraylar 6 MG No 1{capsu le} QD Vraylar 6 MG HYDROcodone -Acetaminop hen HYDROcodone -Acetaminop hen No HYDROcodon e-Acetamin ophen Ambien 10 MG Ambien 10 MG No 1{table t_at_be dtime_a s_neede d} QD Ambien 10 MG Imitrex Imitrex No Imitrex Promethazin e HCl 12.5 MG Promethazin e HCl 12.5 MG No 1{suppo sitory_ as_need ed} Promethazi ne HCl 12.5 MG tiZANidine HCl 4 MG tiZANidine HCl 4 MG No 1{table t_as_ne eded} TID tiZANidine HCl 4 MG Imuran 50 MG Imuran 50 MG No Imuran 50 MG Plaquenil 200 MG Plaquenil 200 MG No Plaquenil 200 MG Vraylar 6 MG Vraylar 6 MG No 1{capsu le} QD Vraylar 6 MG HYDROcodone -Acetaminop hen HYDROcodone -Acetaminop hen No HYDROcodon e-Acetamin ophen Ambien 10 MG Ambien 10 MG No 1{table t_at_be dtime_a s_neede d} QD Ambien 10 MG Imitrex Imitrex No Imitrex Promethazin e HCl 12.5 MG Promethazin e HCl 12.5 MG No 1{suppo sitory_ as_need ed} Promethazi ne HCl 12.5 MG tiZANidine HCl 4 MG tiZANidine HCl 4 MG No 1{table t_as_ne eded} TID tiZANidine HCl 4 MG Imuran 50 MG Imuran 50 MG No Imuran 50 MG Plaquenil 200 MG Plaquenil 200 MG No Plaquenil 200 MG Vraylar 6 MG Vraylar 6 MG No 1{capsu le} QD Vraylar 6 MG HYDROcodone -Acetaminop hen HYDROcodone -Acetaminop hen No HYDROcodon e-Acetamin ophen Ambien 10 MG Ambien 10 MG No 1{table t_at_be dtime_a s_neede d} QD Ambien 10 MG Imitrex Imitrex No Imitrex Promethazin e HCl 12.5 MG Promethazin e HCl 12.5 MG No 1{suppo sitory_ as_need ed} Promethazi ne HCl 12.5 MG tiZANidine HCl 4 MG tiZANidine HCl 4 MG No 1{table t_as_ne eded} TID tiZANidine HCl 4 MG Imuran 50 MG Imuran 50 MG No Imuran 50 MG Plaquenil 200 MG Plaquenil 200 MG No Plaquenil 200 MG Vraylar 6 MG Vraylar 6 MG No 1{capsu le} QD Vraylar 6 MG HYDROcodone -Acetaminop hen HYDROcodone -Acetaminop hen No HYDROcodon e-Acetamin ophen Vraylar 6 MG Vraylar 6 MG No 1{capsu le} QD Vraylar 6 MG Imitrex Imitrex No Imitrex Promethazin e HCl 12.5 MG Promethazin e HCl 12.5 MG No 1{suppo sitory_ as_need ed} Promethazi ne HCl 12.5 MG tiZANidine HCl 4 MG tiZANidine HCl 4 MG No 1{table t_as_ne eded} TID tiZANidine HCl 4 MG Plaquenil 200 MG Plaquenil 200 MG No Plaquenil 200 MG Ambien 10 MG Ambien 10 MG No 1{table t_at_be dtime_a s_neede d} QD Ambien 10 MG Imuran 50 MG Imuran 50 MG No Imuran 50 MG HYDROcodone -Acetaminop hen HYDROcodone -Acetaminop hen No HYDROcodon e-Acetamin ophen HYDROcodone -Acetaminop hen HYDROcodone -Acetaminop hen No HYDROcodon e-Acetamin ophen Plaquenil 200 MG Plaquenil 200 MG No Plaquenil 200 MG Imitrex Imitrex No Imitrex Imuran 50 MG Imuran 50 MG No Imuran 50 MG tiZANidine HCl 4 MG tiZANidine HCl 4 MG No 1{table t_as_ne eded} TID tiZANidine HCl 4 MG Vraylar 6 MG Vraylar 6 MG No 1{capsu le} QD Vraylar 6 MG Promethazin e HCl 12.5 MG Promethazin e HCl 12.5 MG No 1{suppo sitory_ as_need ed} Promethazi ne HCl 12.5 MG Ambien 10 MG Ambien 10 MG No 1{table t_at_be dtime_a s_neede d} QD Ambien 10 MG Promethazin e HCl 12.5 MG Promethazin e HCl 12.5 MG No 1{suppo sitory_ as_need ed} Promethazi ne HCl 12.5 MG Imuran 50 MG Imuran 50 MG No Imuran 50 MG Plaquenil 200 MG Plaquenil 200 MG No Plaquenil 200 MG Imitrex Imitrex No Imitrex tiZANidine HCl 4 MG tiZANidine HCl 4 MG No 1{table t_as_ne eded} TID tiZANidine HCl 4 MG HYDROcodone -Acetaminop hen HYDROcodone -Acetaminop hen No HYDROcodon e-Acetamin ophen Vraylar 6 MG Vraylar 6 MG No 1{capsu le} QD Vraylar 6 MG Ambien 10 MG Ambien 10 MG No 1{table t_at_be dtime_a s_neede d} QD Ambien 10 MG HYDROcodone -Acetaminop hen HYDROcodone -Acetaminop hen No HYDROcodon e-Acetamin ophen Vraylar 6 MG Vraylar 6 MG No 1{capsu le} QD Vraylar 6 MG Imitrex Imitrex No Imitrex tiZANidine HCl 4 MG tiZANidine HCl 4 MG No 1{table t_as_ne eded} TID tiZANidine HCl 4 MG Promethazin e HCl 12.5 MG Promethazin e HCl 12.5 MG No 1{suppo sitory_ as_need ed} Promethazi ne HCl 12.5 MG Ambien 10 MG Ambien 10 MG No 1{table t_at_be dtime_a s_neede d} QD Ambien 10 MG HYDROcodone -Acetaminop hen HYDROcodone -Acetaminop hen No HYDROcodon e-Acetamin ophen Imitrex Imitrex No Imitrex tiZANidine HCl 4 MG tiZANidine HCl 4 MG No 1{table t_as_ne eded} TID tiZANidine HCl 4 MG Vraylar 6 MG Vraylar 6 MG No 1{capsu le} QD Vraylar 6 MG Ambien 10 MG Ambien 10 MG No 1{table t_at_be dtime_a s_neede d} QD Ambien 10 MG HYDROcodone -Acetaminop hen HYDROcodone -Acetaminop hen No HYDROcodon e-Acetamin ophen Ambien 10 MG Ambien 10 MG No 1{table t_at_be dtime_a s_neede d} QD Ambien 10 MG Imitrex Imitrex No Imitrex tiZANidine HCl 4 MG tiZANidine HCl 4 MG No 1{table t_as_ne eded} TID tiZANidine HCl 4 MG Promethazin e HCl 12.5 MG Promethazin e HCl 12.5 MG 07-15 00:00 :00 No 1{suppo sitory_ as_need ed} Promethazi ne HCl 12.5 MG Immunizations Ordered Immunization Name Filled Immunization Name Date Status Comments Source Adacel (Tdap) Adacel (Tdap) 2020-08-25 15:49:00 Completed [facility] Adacel (Tdap) Adacel (Tdap) 2020-08-25 15:49:00 Completed [facility] Adacel (Tdap) Adacel (Tdap) 2020-08-25 15:49:00 Completed [facility] Adacel (Tdap) Adacel (Tdap) 2020-08-25 15:49:00 Completed [facility] Adacel (Tdap) Adacel (Tdap) 2020-08-25 15:49:00 Completed [facility] Adacel (Tdap) Adacel (Tdap) 2020-08-25 15:49:00 Completed [facility] Adacel (Tdap) Adacel (Tdap) 2020-08-25 15:49:00 Completed [facility] Adacel (Tdap) Adacel (Tdap) 2020-08-25 15:49:00 Completed [facility] Adacel (Tdap) Adacel (Tdap) 2020-08-25 15:49:00 Completed [facility] Adacel (Tdap) Adacel (Tdap) 2020-08-25 15:49:00 Completed [facility] TDAP 2019-01-26 00:00:00 Completed [facility] TDAP 2019-01-26 00:00:00 Completed [facility] TDAP 2019-01-26 00:00:00 Completed [facility] TDAP 2019-01-26 00:00:00 Completed [facility] TDAP 2019-01-26 00:00:00 Completed [facility] TDAP 2019-01-26 00:00:00 Completed [facility] TDAP 2019-01-26 00:00:00 Completed [facility] TDAP 2019-01-26 00:00:00 Completed [facility] TDAP 2019-01-26 00:00:00 Completed [facility] TDAP 2019-01-26 00:00:00 Completed [facility] TDAP 2019-01-26 00:00:00 Completed [facility] TDAP Unknown Completed [facility] TDAP Unknown Completed [facility] TDAP Unknown Completed [facility] TDAP Unknown Completed [facility] TDAP Unknown Completed [facility] TDAP Unknown Completed [facility] TDAP Unknown Completed [facility] TDAP Unknown Completed [facility] TDAP Unknown Completed [facility] TDAP Unknown Completed [facility] Adacel (Tdap) Adacel (Tdap) Unknown Completed [facility] Adacel (Tdap) Adacel (Tdap) Unknown Completed [facility] Vital Signs Vital Name Observation Time Observation Value Comments S ource Systolic blood pressure 2023-08-15 20:02:00 121 mm[Hg] [place] [facility] Diastolic blood pressure 2023-08-15 20:02:00 80 mm[Hg] [facility] Heart rate 2023-08-15 20:02:00 89 /min Unive [facility] Body temperature 2023-08-15 20:02:00 36.89 Meredith [facility] Respiratory rate 2023-08-15 20:02:00 13 /min [facility] Oxygen saturation in Arterial blood by Pulse oximetry 2023-08-15 19:02:00 100 /min [facility] Body height 2023-08-15 17:17:00 152.4 cm Univ [facility] Body weight 2023-08-15 17:17:00 83.915 kg [facility] BMI 2023-08-15 17:17:00 36.13 kg/m2 Univ [facility] Systolic blood pressure 2023-07-01 20:04:00 119 mm[Hg] [facility] Diastolic blood pressure 2023-07-01 20:04:00 80 mm[Hg] [facility] Heart rate 2023-07-01 20:04:00 96 /min Unive [facility] Body temperature 2023-07-01 20:04:00 37.28 Meredith [facility] Respiratory rate 2023-07-01 20:04:00 17 /min [facility] Body height 2023-07-01 20:04:00 152.4 cm [facility] Body weight 2023-07-01 20:04:00 89.767 kg [facility] BMI 2023-07-01 20:04:00 38.65 kg/m2 [facility] Oxygen saturation in Arterial blood by Pulse oximetry 2023-07-01 20:04:00 99 /min [facility] Systolic blood pressure 2023-07-01 17:29:00 128 mm[Hg] [facility] Diastolic blood pressure 2023-07-01 17:29:00 99 mm[Hg] [facility] Heart rate 2023-07-01 17:29:00 105 /min Unive [facility] Body temperature 2023-07-01 17:29:00 37.11 Meredith [facility] Respiratory rate 2023-07-01 17:29:00 16 /min [facility] Body height 2023-07-01 17:29:00 152.4 cm [facility] Body weight 2023-07-01 17:29:00 87.091 kg [facility] BMI 2023-07-01 17:29:00 37.50 kg/m2 [facility] Oxygen saturation in Arterial blood by Pulse oximetry 2023-07-01 17:29:00 100 /min [facility] Systolic blood pressure 2023-06-25 16:01:00 138 mm[Hg] [facility] Diastolic blood pressure 2023-06-25 16:01:00 83 mm[Hg] [facility] Heart rate 2023-06-25 16:01:00 108 /min Unive [facility] Body temperature 2023-06-25 16:01:00 36.44 Meredith [facility] Respiratory rate 2023-06-25 16:01:00 20 /min [facility] Body height 2023-06-25 16:01:00 152.4 cm [facility] Body weight 2023-06-25 16:01:00 91.343 kg [facility] BMI 2023-06-25 16:01:00 39.33 kg/m2 [facility] Oxygen saturation in Arterial blood by Pulse oximetry 2023-06-25 16:01:00 97 /min [facility] Systolic blood pressure 2023-06-17 22:06:00 133 mm[Hg] [facility] Diastolic blood pressure 2023-06-17 22:06:00 82 mm[Hg] [facility] Heart rate 2023-06-17 22:06:00 84 /min [facility] Body temperature 2023-06-17 22:06:00 36.61 Meredith [facility] Respiratory rate 2023-06-17 22:06:00 17 /min [facility] Body height 2023-06-17 22:06:00 152.4 cm Univ [facility] Body weight 2023-06-17 22:06:00 86.183 kg [facility] BMI 2023-06-17 22:06:00 37.11 kg/m2 [facility] Oxygen saturation in Arterial blood by Pulse oximetry 2023-06-17 22:06:00 98 /min [facility] Systolic blood pressure 2023-05-02 21:58:00 131 mm[Hg] [facility] Diastolic blood pressure 2023-05-02 21:58:00 83 mm[Hg] [facility] Heart rate 2023-05-02 21:58:00 100 /min Unive [facility] Body temperature 2023-05-02 21:58:00 36.17 Meredith [facility] Respiratory rate 2023-05-02 21:58:00 16 /min [facility] Body height 2023-05-02 21:58:00 152.4 cm [facility] Body weight 2023-05-02 21:58:00 89.54 kg Univ [facility] BMI 2023-05-02 21:58:00 38.55 kg/m2 [facility] Oxygen saturation in Arterial blood by Pulse oximetry 2023-05-02 21:58:00 96 /min [facility] Systolic blood pressure 2023-04-02 18:16:00 122 mm[Hg] [facility] Diastolic blood pressure 2023-04-02 18:16:00 88 mm[Hg] [facility] Heart rate 2023-04-02 18:16:00 101 /min [facility] Body temperature 2023-04-02 18:16:00 36.83 Meredith [facility] Respiratory rate 2023-04-02 18:16:00 18 /min [facility] Body height 2023-04-02 18:16:00 154.9 cm Univ [facility] Body weight 2023-04-02 18:16:00 86.909 kg [facility] BMI 2023-04-02 18:16:00 36.20 kg/m2 Univ [facility] Oxygen saturation in Arterial blood by Pulse oximetry 2023-04-02 18:16:00 98 /min [facility] Systolic blood pressure 2023-02-16 02:40:00 132 mm[Hg] [facility] Diastolic blood pressure 2023-02-16 02:40:00 72 mm[Hg] [facility] Heart rate 2023-02-16 02:40:00 84 /min Unive [facility] Respiratory rate 2023-02-16 02:40:00 16 /min [facility] Oxygen saturation in Arterial blood by Pulse oximetry 2023-02-16 02:40:00 98 /min [facility] Body temperature 2023-02-15 19:39:00 36.78 Meredith [facility] Body height 2023-02-15 19:39:00 154.9 cm [facility] Body weight 2023-02-15 19:39:00 86.637 kg [facility] BMI 2023-02-15 19:39:00 36.09 kg/m2 [facility] Systolic blood pressure 2022-12-05 19:51:00 126 mm[Hg] [facility] Diastolic blood pressure 2022-12-05 19:51:00 83 mm[Hg] [facility] Heart rate 2022-12-05 19:51:00 92 /min [facility] 2022-12-05 19:51:00 36.61 Meredith [facility] Respiratory rate 2022-12-05 19:51:00 16 /min [facility] Body height 2022-12-05 19:51:00 152.4 cm [facility] Body weight 2022-12-05 19:51:00 89.841 kg [facility] BMI 2022-12-05 19:51:00 38.68 kg/m2 [facility] Oxygen saturation in Arterial blood by Pulse oximetry 2022-12-05 19:51:00 96 /min [facility] height 2022-07-04 08:20:00 61 [in_i] Commo n [facility] weight 2022-07-04 08:20:00 191.5 [lb_av] [facility] temperature 2022-07-04 08:20:00 97.2 [degF] Com mon [facility] bmi 2022-07-04 08:20:00 36.18 kg/m2 Comm on [facility] oximetry 2022-07-04 08:20:00 99 % Commo n [facility] respiratory rate 2022-07-04 08:20:00 18 /min Common [facility] blood pressure systolic 2022-07-04 08:20:00 115 mm[Hg] [facility] blood pressure diastolic 2022-07-04 08:20:00 71 mm[Hg] [facility] Systolic blood pressure 2022-05-30 16:35:00 133 mm[Hg] [facility] Diastolic blood pressure 2022-05-30 16:35:00 89 mm[Hg] [facility] Heart rate 2022-05-30 16:35:00 116 /min [facility] Body temperature 2022-05-30 16:35:00 36.89 Meredith [facility] Respiratory rate 2022-05-30 16:35:00 18 /min [facility] Body height 2022-05-30 16:35:00 152.4 cm [facility] Body weight 2022-05-30 16:35:00 88.99 kg [facility] BMI 2022-05-30 16:35:00 38.32 kg/m2 [facility] Oxygen saturation in Arterial blood by Pulse oximetry 2022-05-30 16:35:00 100 /min [facility] height 2022-03-14 13:50:00 61 [in_i] Commo n [facility] weight 2022-03-14 13:50:00 189 [lb_av] Comm on [facility] temperature 2022-03-14 13:50:00 97.6 [degF] Com mon [facility] bmi 2022-03-14 13:50:00 35.71 kg/m2 Comm on [facility] oximetry 2022-03-14 13:50:00 100 % Commo n [facility] respiratory rate 2022-03-14 13:50:00 16 /min [facility] blood pressure systolic 2022-03-14 13:50:00 132 mm[Hg] [facility] blood pressure diastolic 2022-03-14 13:50:00 73 mm[Hg] [facility] height 2022-03-14 13:40:00 61 [in_i] Commo n [facility] weight 2022-03-14 13:40:00 189 [lb_av] Comm on [facility] temperature 2022-03-14 13:40:00 97.6 [degF] Com mon [facility] bmi 2022-03-14 13:40:00 35.71 kg/m2 Comm on [facility] oximetry 2022-03-14 13:40:00 100 % Commo n [facility] respiratory rate 2022-03-14 13:40:00 16 /min [facility] blood pressure systolic 2022-03-14 13:40:00 132 mm[Hg] [facility] blood pressure diastolic 2022-03-14 13:40:00 73 mm[Hg] [facility] Systolic blood pressure 2022-01-16 20:40:00 135 mm[Hg] [facility] Diastolic blood pressure 2022-01-16 20:40:00 87 mm[Hg] [facility] Heart rate 2022-01-16 20:40:00 98 /min [facility] Body temperature 2022-01-16 20:40:00 36.5 Meredith [facility] Respiratory rate 2022-01-16 20:40:00 16 /min [facility] Body height 2022-01-16 20:40:00 152.4 cm [facility] Body weight 2022-01-16 20:40:00 83.779 kg [facility] BMI 2022-01-16 20:40:00 36.07 kg/m2 [facility] Oxygen saturation in Arterial blood by Pulse oximetry 2022-01-16 20:40:00 99 /min [facility] Systolic blood pressure 2022-01-05 15:50:00 158 mm[Hg] [facility] Diastolic blood pressure 2022-01-05 15:50:00 89 mm[Hg] [facility] Heart rate 2022-01-05 15:50:00 101 /min Unive [facility] Body temperature 2022-01-05 15:50:00 37.06 Meredith [facility] Respiratory rate 2022-01-05 15:50:00 18 /min [facility] Body height 2022-01-05 15:50:00 154.9 cm [facility] Body weight 2022-01-05 15:50:00 79.379 kg [facility] BMI 2022-01-05 15:50:00 33.07 kg/m2 [facility] Oxygen saturation in Arterial blood by Pulse oximetry 2022-01-05 15:50:00 100 /min [facility] height 2021-12-13 16:20:00 61 [in_i] Commo n [facility] weight 2021-12-13 16:20:00 170 [lb_av] Comm on [facility] temperature 2021-12-13 16:20:00 98.2 [degF] Com mon [facility] bmi 2021-12-13 16:20:00 32.12 kg/m2 Comm on [facility] blood pressure systolic 2021-12-13 16:20:00 125 mm[Hg] Common [facility] blood pressure diastolic 2021-12-13 16:20:00 74 mm[Hg] Common [facility] height 2021-09-06 16:30:00 61 [in_i] Commo n [facility] weight 2021-09-06 16:30:00 169 [lb_av] Comm on [facility] temperature 2021-09-06 16:30:00 97 [degF] Comm on [facility] bmi 2021-09-06 16:30:00 31.93 kg/m2 Comm on [facility] blood pressure systolic 2021-09-06 16:30:00 128 mm[Hg] Common [facility] blood pressure diastolic 2021-09-06 16:30:00 72 mm[Hg] Common [facility] height 2021-06-06 15:50:00 61 [in_i] Commo n [facility] weight 2021-06-06 15:50:00 170 [lb_av] Comm on [facility] temperature 2021-06-06 15:50:00 98 [degF] Comm on [facility] bmi 2021-06-06 15:50:00 32.12 kg/m2 Comm on [facility] blood pressure systolic 2021-06-06 15:50:00 130 mm[Hg] Common [facility] blood pressure diastolic 2021-06-06 15:50:00 70 mm[Hg] [facility] Systolic blood pressure 2021-05-15 20:07:00 140 mm[Hg] [facility] Diastolic blood pressure 2021-05-15 20:07:00 90 mm[Hg] [facility] Heart rate 2021-05-15 20:07:00 105 /min [facility] Body height 2021-05-15 20:07:00 154.9 cm [facility] Body weight 2021-05-15 20:07:00 74.844 kg [facility] BMI 2021-05-15 20:07:00 31.18 kg/m2 [facility] Procedures Procedure Date / Time Performed Performing Clinicia n Source MAGNESIUM 2023-08-15 18:27:00 Hakan Conti [facility] TROPONIN I 2023-08-15 18:27:00 [facility] COMP. METABOLIC PANEL (50333) 2023-08-15 18:27:00 Hakan Conti [facility] CBC WITH DIFF 2023-08-15 18:27:00 Hakan Conti [facility] URINALYSIS 2023-08-15 18:27:00 [facility] N-TERMINAL PRO-BNP 2023-08-15 18:27:00 Hakan Conti [facility] XR CHEST 1 VW 2023-08-15 18:24:14 Hakan Conti [facility] CONSENT/REFUSAL FOR DIAGNOSIS AND TREATMENT 2023-08-15 17:06:55 Doctor Unassigned, Geiger [facility] POCT SARS-COV-2 ANTIGEN (BINAX NOW) 2023-07-01 20:15:00 Natalia Vásquez [facility] POCT MOLECULAR FLU 2023-07-01 20:11:00 Unknown, Attend ing [facility] POCT MOLECULAR STREP 2023-07-01 20:09:00 Unknown, Atte mableing [facility] ASSIGNMENT OF BENEFITS 2023-07-01 18:30:35 Docto r Unassigned, Geiger [facility] CONSENT/REFUSAL FOR DIAGNOSIS AND TREATMENT 2023-07-01 17:25:30 Doctor Unassigned, Geiger [facility] ASSIGNMENT OF BENEFITS 2023-06-25 15:32:57 Docto r Unassigned, Geiger [facility] POCT SARS-COV-2 ANTIGEN (BINAX NOW) 2023-06-17 22:11:00 Melissa Yancey [facility] POCT SARS-COV-2 ANTIGEN (BINAX NOW) 2023-05-02 22:10:00 Natalia Vásquez [facility] POCT SARS-COV-2 ANTIGEN (BINAX NOW) 2023-04-02 18:54:00 Lv Wolf [facility] CT ABDOMEN PELVIS W CONTRAST 2023-02-15 22:28:42 Hakan Conti [facility] LIPASE 2023-02-15 21:08:00 [facility]akan Cont[facility] MAGNESIUM 2023-02-15 21:08:00 Hakan Conti [facility] TROPONIN I 2023-02-15 21:08:00 Hakan Cont[facility] COMP. METABOLIC PANEL ([id number]) 2023-02-15 21:08:00 Hakan Conti [facility] CBC WITH DIFF 2023-02-15 21:08:00 [facility]23-02-15 21:08:00 Hakan Conti [facility] ASSIGNMENT OF BENEFITS 2023-02-15 20:57:48 Docto r Unassigned, Geiger [facility] NOTICE OF PRIVACY PRACTICES 2023-02-15 19:28:07 Doctor Unassigned, Geiger [facility] CONSENT/REFUSAL FOR DIAGNOSIS AND TREATMENT 2023-02-15 19:27:07 Doctor Unassigned, Geiger [facility] POCT SARS-COV-2 ANTIGEN (BINAX NOW) 2022-12-05 20:09:00 Arcenio Napoles [facility] PATIENT FINANCIAL POLICY 2022-12-05 19:44:23 Doctor Unassigned, Geiger [facility] ASSIGNMENT OF BENEFITS 2022-05-30 16:28:29 Docto r Unassigned, Geiger [facility] CT ABDOMEN PELVIS WO CONTRAST 2022-01-05 17:20:35 Gary Gonzalez [facility] XR KUB 2022-01-05 16:21:08 Gary Gonzalez [facility] POCT TEST 2022-01-05 16:08:00 Gary Gonzalez [facility] LIPASE 2022-01-05 16:06:[address] [facility] HEPATIC FUNCTION PANEL ([id number]) (ALB,T.PRO,BILI T,BU/BC,ALT,AST,ALK PHOS) 2022-01-05 16:06:[address] [facility] BASIC METABOLIC PANEL (NA, K, CL, CO2, GLUCOSE, BUN, CREATININE, CA) 2022-01-05 16:06:00 Gary Gonzalez [facility] CBC WITH DIFF 2022-01-05 16:06:00 Gary Gonzalez [facility] URINALYSIS 2022-01-05 16:06:00 Gary Gonzalez [facility] CONSENT/REFUSAL FOR DIAGNOSIS AND TREATMENT 2022-01-05 15:43:39 Doctor Unassigned, Geiger [facility] Encounters Start Date/Time End Date/Time Encounter Type Admission Type Attending [facility] Facility Care Department Encounter ID Source 2023-09-03 09:33:00 Outpatient Higgins, [facility] STLMLC STLMLC [id number] [facility] 2022-10-03 08:13:00 Outpatient Higgins, Brandee STLMLC STLMLC [id number] [facility] 2022-07-02 10:13:01 Outpatient Higgins, Brandee STLMLC STLMLC [id number] [facility] 2022-06-12 09:17:00 Outpatient Higgins, Brandee STLMLC STLMLC [id number] [facility] 2021-09-20 14:00:52 Outpatient Higgins, Brandee STLMLC STLMLC [id number] [facility] 2021-09-20 13:53:20 Outpatient Higgins, Brandee STLMLC STLMLC [id number] [facility] 2021-09-20 13:19:51 Outpatient Higgins, Brandee STLMLC STLMLC [id number] [facility] 2021-09-20 13:14:31 Outpatient Higgins, Brandee STLMLC STLMLC [id number] [facility] 2021-09-20 12:50:04 Outpatient Higgins, Brandee STLMLC STLMLC [id number] [facility] 2021-09-20 12:48:36 Outpatient Higgins, Brandee STLMLC STLMLC [id number] [facility] 2021-06-26 17:19:59 Emergency [facility] [id number] [facility] 2021-06-26 08:32:13 Emergency [facility] [id number] [facility] 2021-06-26 02:13:21 Emergency [facility] [id number] [facility] 2021-06-25 21:06:07 Emergency [facility] [id number] [facility] 2021-06-25 12:29:01 Emergency [facility] [id number] [facility] 2021-06-25 01:51:21 Emergency [facility] [id number] [facility] 2023-08-16 00:00:00 2023-08-16 00:00:00 ([facility]EL[facility] [id number] 2023-08-15 11:19:00 2023-08-15 14:44:00 Emergency X Hakan CONTI [facility] ERT [id number] [facility] 2023-08-15 11:19:00 2023-08-15 14:44:00 Emergency Hakan Conti Barbara [facility] 1..840.114 350.1.13.10 4.2.7.2.686 [id number] [facility] 2023-07-11 00:00:00 2023-07-11 00:00:00 Patient Secure Msg Doctor Unassigned, Geiger [facility] 1.840.114 350.1.13.10 4.2.7.2.686 [id number] [facility] 2023-07-01 13:20:00 2023-07-01 14:19:25 Outpatient R LV WOLF [facility] [id number] [facility] 2023-07-01 13:20:00 2023-07-01 14:19:25 Urgent Care Lv Wolf Unknown, Attending [facility] 1.2.840.114 350.1.13.10 4.2.7.2.686 [id number] [facility] 2023-07-01 11:30:00 2023-07-01 13:18:00 Emergency X YANA HAWTHORNE, YANA [facility] ERT [id number] [facility] 2023-07-01 11:30:00 2023-07-01 13:18:00 Emergency Yana Hawthorne [facility] 1.840.114 350.1.13.10 4.2.7.2.686 [id number] [facility] 2023-06-25 10:40:00 2023-06-25 11:52:18 Outpatient R NATALIA VÁSQUEZ [facility] [id number] [facility] 2023-06-25 10:40:00 2023-06-25 11:00:00 Urgent Care Natalia Vásquez Unknown, Attending [facility] 1.840.114 350.1.13.10 4.2.7.2.686 [id number] [facility] 2023-06-25 00:00:00 2023-06-25 00:00:00 Orders Only Doctor Unassigned, Geiger [facility] 1.84.114 350.1.13.10 4.2.7.2.686 [id number] [facility] 2023-06-18 00:00:00 2023-06-18 00:00:00 Letter (Out) Etta Solares [facility] 1.84.114 350.1.13.10 4.2.7.2.686 [id number] [facility] 2023-06-17 17:00:00 2023-06-17 17:30:14 Outpatient R MELISSA YANCEY [facility] [id number] [facility] 2023-06-17 17:00:00 2023-06-17 17:30:14 Urgent Care Melissa Yancey, Attending [facility] 1.2.840.114 350.1.13.10 4.2.7.2.686 [id number] [facility] 2023-06-17 16:45:00 2023-06-17 16:45:00 Outpatient R CECI, [facility] [id number] [facility] 2023-06-17 00:00:00 2023-06-17 00:00:00 ([facility]EL) [facility] [id number] 2023-05-02 16:40:00 2023-05-02 17:00:00 Urgent Care Natalia Vásquez Ceci, Attending [facility] 1.2.840.114 350.1.13.10 4.2.7.2.686 [id number] [facility] 2023-05-02 16:40:00 2023-05-02 16:40:00 Outpatient R NATALIA VÁSQUEZ [facility] [id number] [facility] 2023-05-02 00:00:00 2023-05-02 00:00:00 Letter (Out) KevinNatalia mosquera [facility] 1.2.840.114 350.1.13.10 4.2.7.2.686 [id number] [facility] 2023-04-02 12:40:00 2023-04-02 14:01:19 Outpatient R LV WOLF [facility] [id number] [facility] 2023-04-02 12:40:00 2023-04-02 14:01:19 Urgent Care Lv Wolf Unknown, Attending [facility] 1.840.114 350.1.13.10 4.2.7.2.686 [id number] [facility] 2023-02-15 14:40:00 2023-02-15 21:46:00 Emergency X Hakan CONTI [facility] ERT [id number] [facility] 2023-02-15 14:40:00 2023-02-15 21:46:00 Emergency Hakan Conti Barbara [facility] 1.840.114 350.1.13.10 4.2.7.2.686 [id number] [facility] 2022-12-05 14:40:00 2022-12-05 15:18:01 Outpatient R ARCENIO NAPOLES [facility] [id number] [facility] 2022-12-05 14:40:00 2022-12-05 15:18:01 Urgent Care Arcenio Napoles Unknown, Attending [facility] 1.840.114 350.1.13.10 4.2.7.2.686 [id number] [facility] 2022-12-05 00:00:00 2022-12-05 00:00:00 Orders Only Doctor Unassigned, Geiger [facility] 1.840.114 350.1.13.10 4.2.7.2.686 [id number] [facility] 2022-07-04 00:00:00 2022-07-04 00:00:00 OFFICE VISIT ESTAB PT LEVEL 4 STLMLC STLC [id number] [facility] 2022-05-30 13:00:00 2022-05-30 13:20:00 Urgent Care Melissa Yancey Brittany [facility] 1.840.114 350.1.13.10 4.2.7.2.686 [id number] [facility] 2022-05-30 13:00:00 2022-05-30 13:00:00 Outpatient R ANDRIY MELISSA [facility] [id number] [facility] 2022-05-30 00:00:00 2022-05-30 00:00:00 Orders Only Doctor Unassigned, Geiger [facility] 1..840.114 350.1.13.10 4.2.7.2.686 [id number] [facility] 2022-05-03 00:00:00 2022-05-03 00:00:00 (TEL) STLMLC STLMLC [id number] [facility] 2022-03-14 00:00:00 2022-03-14 00:00:00 OFFICE VISIT ESTAB PT LEVEL 4 STLMLC STLMLC [id number] [facility] 2022-03-14 00:00:00 2022-03-14 00:00:00 (TEL) STLMLC STLMLC [id number] [facility] 2022-03-14 00:00:00 2022-03-14 00:00:00 SUB ANNUAL [facility] VISIT STLMLC STLMLC [id number] [facility] 2022-01-16 16:00:00 2022-01-16 16:03:05 Outpatient R NATALIA VÁSQUEZ [facility] [id number] [facility] 2022-01-16 16:00:00 2022-01-16 16:03:05 [facility] 1..840.114 350.1.13.10 4.2.7.2.686 [id number] [facility] 2022-01-05 10:54:00 2022-01-05 13:07:00 Emergency X GARY GONZALEZ [facility] ERT [id number] [facility] 2022-01-05 10:54:00 2022-01-05 13:07:00 Emergency Gary Gonzalez [facility] 1.2.840.114 350.1.13.10 4.2.7.2.686 [id number] [facility] 2021-12-28 13:20:00 2021-12-28 13:20:00 Outpatient NATALIA DURAN [facility] [id number] [facility] 2021-12-13 00:00:00 2021-12-13 00:00:00 OFFICE VISIT ESTAB PT LEVEL 4 STLMLC STLMLC [id number] [facility] 2021-09-06 00:00:00 2021-09-06 00:00:00 OFFICE VISIT EST PT LEVEL 3 STLMLC STLMLC [id number] [facility] 2021-08-14 15:45:00 2021-08-14 16:00:00 Laboratory Only Only, Ang Db Test Bill, [facility] 1.2.840.114 350.1.13.10 4.2.7.2.686 [id number] [facility] 2021-08-14 15:45:00 2021-08-14 15:54:14 Outpatient FIDENCIO EDLGADO [facility] [id number] [facility] 2021-08-01 00:00:00 2021-08-01 00:00:00 (TEL) STLMLC STLMLC [id number] [facility] 2021-06-15 00:00:00 2021-06-15 00:00:00 (TEL) STLMLC STLMLC [id number] [facility] 2021-06-12 13:30:00 2021-06-12 13:30:00 Outpatient JENNA NG [facility] [id number] [facility] 2021-06-06 00:00:00 2021-06-06 00:00:00 OFFICE VISIT ESTAB PT LEVEL 4 STLMLC STLMLC [id number] [facility] 2021-06-05 13:30:00 2021-06-05 13:30:00 Outpatient Chet ROCKY JENNA [facility] [id number] [facility] 2021-05-15 15:01:19 2021-05-15 15:16:19 Office Visit [facility] 1.2.840.114 350.1.13.10 4.2.7.2.686 [id number] [facility] 2021-05-15 15:00:00 2021-05-15 15:00:00 Outpatient Chet ROCKY [facility] [id number] [facility] 2021-05-10 13:00:00 2021-05-10 13:00:00 Outpatient R ROCKY JENNA [facility] [id number] [facility] 2021-04-19 15:25:00 2021-04-19 23:59:00 Hospital Encounter [facility] Romeo?[facility] 1.2.840.114 350.1.13.10 4.2.7.2.686 [id number] [facility] 2021-04-19 15:25:00 2021-04-19 23:59:00 Outpatient R ROCKY [facility] [id number] [facility] 2021-04-19 15:16:01 2021-04-19 17:12:29 Office Visit Jenna Lower[facility] 1.2.840.114 350.1.13.10 4.2.7.2.686 [id number] [facility] 2021-02-21 00:00:00 2021-02-21 00:00:00 Outpatient STLMLC STLMLC [id number] [facility] 2021-02-21 00:00:00 2021-02-21 00:00:00 Outpatient STLMLC STLMLC [id number] [facility] 2021-02-08 00:00:00 2021-02-08 00:00:00 Outpatient STLMLC STLMLC [id number] [facility] 2021-02-06 00:00:00 2021-02-06 00:00:00 Outpatient STLMLC STLMLC [id number] [facility] 2021-01-20 08:30:00 2021-01-20 08:30:00 Outpatient JENNA NG [facility] [id number] [facility] 2021-01-02 00:00:00 2021-01-02 00:00:00 Outpatient STLMLC STLMLC [id number] [facility] 2020-12-21 13:30:00 2020-12-21 13:30:00 Outpatient CARLOS COLEY [facility] [id number] [facility] 2020-12-12 00:00:00 2020-12-12 00:00:00 Outpatient STLMLC STLMLC [id number] [facility] 2020-12-12 00:00:00 2020-12-12 00:00:00 Outpatient STLMLC STLMLC [id number] [facility] 2020-12-06 09:33:00 2020-12-06 10:58:00 Emergency Boby Bal [facility] 1.2.840.114 350.1.13.10 4.2.7.2.686 [id number] 2020-11-29 00:00:00 2020-11-29 00:00:00 Outpatient STLMLC STLMLC [id number] [facility] 2020-11-10 00:00:00 2020-11-10 00:00:00 Patient Outreach Willy Grace [facility] 1.840.114 350.1.13.10 4.2.7.2.686 [id number] 2020-10-22 13:44:00 2020-10-22 16:22:00 Emergency Mariela, Dionne Shaw Tori [facility] 1.840.114 350.1.13.10 4.2.7.2.686 [id number] 2020-01-07 00:00:00 2020-01-07 00:00:00 Telephone Fidencio Khan [facility] 1.0.114 350.1.13.10 4.2.7.2.686 [id number] 2019-11-03 00:00:00 2019-11-03 00:00:00 Telephone Kalyah Wolff [facility] 1.0.114 350.1.13.10 4.2.7.2.686 [id number] 2019-11-02 15:39:02 2019-11-02 23:59:00 Outpatient R RADIOLOGY [facility] [id number] [facility] 2019-11-02 15:30:00 2019-11-02 23:59:00 Hospital Encounter Radiology [facility] 1.0.114 350.1.13.10 4.2.7.2.686 [id number] 2019-11-02 00:00:00 2019-11-02 00:00:00 Orders Only Doctor Unassigned, Geiger [facility] 1.2840.114 350.1.13.10 4.2.7.2.686 [id number] 2019-10-28 15:11:42 2019-10-28 15:59:11 Office Visit Kaylah Wolff [facility] 1..114 350.1.13.10 4.2.7.2.686 [id number] 2019-10-28 15:20:00 2019-10-28 15:20:00 Outpatient R KAYLAH WOLFF [facility] [id number] [facility] 2019-10-26 16:50:10 2019-10-26 19:30:00 Emergency X BOBY BAL [facility] ERT [id number] [facility] 2019-05-18 12:49:44 2019-05-18 15:02:00 Emergency X ANDREW MAXWELL [facility] ERT [id number] [facility] Results Test Description Test Time Test Comments Results Result Co mments Source [facility] Vcw-[id number] 19:02:25* Test Item Value Reference Range Interpretation Comme nts NT-proBNP (test code = 50192-2) 21 pg/mL <=125 Lab Interpretation (test cod e = 30783-9) Normal [facility]2023-12-21 18:53:46* Test Item Value Reference Range Interpretation Comme nts MAGNESIUM (test code = 4879390387) 1.8 mg/dL 1.7-2.4 Lab Interpretation (test cod e = 82986-8) Normal [facility] Met[facility] Panel (45821)2023-08-15 18:53:05* Test Item Value Reference Range Interpretation Comme nts NA (test code = 3591524153) 138 mmol/L 135-145 K (test code = 2148997833) 3.8 mmol/L 3.5-5.0 CL (test code = 0311119886) 106 mmol/L 98-108 CO2 TOTAL (test code = 8299379146) 23 mmol/L 23-31 AGAP (test code = 6788385931) 9 2-16 BUN (test code = 7071442606) 14 mg/dL 7-23 GLUCOSE (test code = 7674025632) 75 mg/dL 70-110 CREATININE (test code = 7495718894) 0.74 mg/dL 0.50-1.04 TOTAL BILI (test code = 3210696480) 0.3 mg/dL 0.1-1.1 CALCIUM (test code = 3450219817) 8.9 mg/dL 8.6-10.6 T PROTEIN (test code = 7471482704) 7.1 g/dL 6.3-8.2 ALBUMIN (test code = 2543312932) 4.1 g/dL 3.5-5.0 ALK PHOS (test code = 3410117420) 82 U/L 34-122 ALTv (test code = 1742-6) 39 U/L 5-35 H AST(SGOT) (test code = 7599340955) 33 U/L 13-40 eGFR (test code = 07175-4) 99.9 mL/min/1.73m2 CKD-EPI eGFR (2020). Assuming creatinine has been stable day-to-day for at least three months, the eGFR indicates Category G1 (>= 90 mL/min/1.73 m2) Lab Interpretation (test code = 19451-3) Abnormal [facility] with Aceu6476-64-59 18:45:05* Test Item Value Reference Range Interpretation Comme nts WBC (test code = 6690-2) 6.21 See_Comment [Automated [employer]] The system which generated this result transmitted reference range: 4.30 - 11.10 10*3/?L. The reference range was not used to interpret this result as normal/abnormal. RBC (test code = 789-8) 4.21 See_Comment [Automated [employer]] The system which generated this result transmitted reference range: 3.93 - 5.25 10*6/?L. The reference range was not used to interpret this result as normal/abnormal. HGB (test code = 718-7) 13.1 g/dL 11.6-15.0 HCT (test code = 4544-3) 38.9 % 35.7-45.2 MCV (test code = 787-2) 92.4 fL 80.6-95.5 MCH (test code = 785-6) 31.1 pg 25.9-32.8 MCHC (test code = 786-4) 33.7 g/dL 31.6-35.1 RDW-SD (test code = 56664-9) 46.5 fL 39.0-49.9 RDW-CV (test code = 788-0) 13.8 % 12.0-15.5 PLT (test code = 777-3) 246 See_Comment [Automated messa ge] The system which generated this result transmitted reference range: 166 - 358 10*3/?L. The reference range was not used to interpret this result as normal/abnormal. MPV (test code = 67809-6) 10.7 fL 9.5-12.9 NRBC/100 WBC (test code = 7579529452) 0.0 See_Comment [Automated [employer] ssage] The system which generated this result transmitted reference range: 0.0 - 10.0 /100 WBCs. The reference range was not used to interpret this result as normal/abnormal. NRBC x10^3 (test code = 1588067500) See_Comment [Automated messa ge] The system which generated this result transmitted reference range: 10*3/?L. The reference range was not used to interpret this result as normal/abnormal. GRAN MAT (NEUT) % (test code = 770-8) 50.9 % IMM GRAN % (test code = 7184364234) 0.50 % LYMPH % (test code = 736-9) 29.5 % MONO % (test code = 5905-5) 11.8 % EOS % (test code = 713-8) 6.0 % BASO % (test code = 706-2) 1.3 % GRAN MAT x10^3(ANC) (test code = 5493159634) 3.17 10*3/uL 1.88-7.09 IMM GRAN x10^3 (test code = 5822038224) 0.03 10*3/uL 0.00-0.06 LYMPH x10^3 (test code = 731-0) 1.83 10*3/uL 1.32-3.29 MONO x10^3 (test code = 742-7) 0.73 10*3/uL 0.33-0.92 EOS x10^3 (test code = 711-2) 0.37 10*3/uL 0.03-0.39 BASO x10^3 (test code = 704-7) 0.08 10*3/uL 0.01-0.07 H Lab Interpretation (test code = 63686-0) Abnormal [facility] 1 RE0458-11-71 18:27:36HISTORY: Fatigue. TECHNIQUE: Portable AP view of the chest is obtained. Comparison made with10/26/2019 study. FINDINGS: No acute pneumonia. Soft tissue fullness in right cardiophrenicregion is essentially unchanged since the previous study. No pneumothoraxor pleural effusion or pulmonary congestion detected. Cardiac size iswithin upper normal limits. CONCLUSIONS: No signs of acute cardiopulmonary di sease.[facility] MOLECULAR [id number] 20:17:15 * Test Item Value Reference Range Interpretation Comme nts POCT Molecular Strep (test c ode = 80548-0) Negative Negative Lab Interpretation (test cod e = 53042-0) Normal [facility] MOLECULAR MUS7486-06-03 20:15:17* Test Item Value Reference Range Interpretation Comme nts POCT Molecular FluB (test co de = 86207-3) Positive Negative A Lab Interpretation (test cod e = 26147-2) Abnormal [facility] SARS-COV-2 ANTIGEN (BINAX NOW)2023-07-01 20:15:00* Test Item Value Reference Range Interpretation Comme nts POCT SARS-COV-2 ANTIGEN (test code = 20285-0) Not Detected Not Detected On board controls acceptable with C Line (test code = 3574) Yes BRITTANY (test code = BRITTANY) accurate developme nt and interpretation of all internal controls Lab Interpretation (test code = 61457-8) Normal [facility] SARS-COV-2 ANTIGEN (BINAX NOW)2023-06-17 22:11:00* Test Item Value Reference Range Interpretation Comme nts POCT SARS-COV-2 ANTIGEN (test code = 84548-7) Not Detected Not Detected On board controls acceptable with C Line (test code = 3574) Yes BRITTANY (test code = BRITTANY) accurate developme nt and interpretation of all internal controls Lab Interpretation (test code = 34392-5) Normal [facility] SARS-COV-2 ANTIGEN (BINAX NOW)2023-06-17 22:11:00* Test Item Value Reference Range Interpretation Comme nts POCT SARS-COV-2 ANTIGEN (test code = 41666-3) Not Detected Not Detected On board controls acceptable with C Line (test code = 3574) Yes BRITTANY (test code = BRITTANY) accurate developme nt and interpretation of all internal controls Lab Interpretation (test code = 67803-8) Normal [facility] SARS-COV-2 ANTIGEN (BINAX NOW)2023-05-02 22:10:00* Test Item Value Reference Range Interpretation Comme nts POCT SARS-COV-2 ANTIGEN (idania t code = 36095-7) Not Detected Not Detected On board controls acceptable with C Line (test code = 3574) Yes [facility] SARS-COV-2 ANTIGEN (BINAX NOW)2023-04-02 18:54:00* Test Item Value Reference Range Interpretation Comme nts POCT SARS-COV-2 ANTIGEN (test code = 45992-2) Not Detected Not Detected On board controls acceptable with C Line (test code = 3574) Yes BRITTANY (test code = BRITTANY) accurate developme nt and interpretation of all internal controls Lab Interpretation (test code = 17756-8) Normal [facility] [id number] 22:50:48* Test Item Value Reference Range Interpretation Comme nts TROPONIN I (test code = 1062881040) 0.000 ng/mL <=0.034 BRITTANY (test code = BRITTANY) Reference (Normal) [...] to patient's use of biotin. Lab Interpretation (test code = 68655-3) Normal [facility]2023-06-23 22:41:08* Test Item Value Reference Range Interpretation Comme nts MAGNESIUM (test code = 0957688999) 1.9 mg/dL 1.7-2.4 Lab Interpretation (test cod e = 05775-6) Normal [facility]. METABOLIC PANEL (78123)2023-02-15 22:41:07* Test Item Value Reference Range Interpretation Comme nts NA (test code = 1776979249) 140 mmol/L 135-145 K (test code = 1248804009) 4.3 mmol/L 3.5-5.0 CL (test code = 2262527757) 105 mmol/L 98-108 CO2 TOTAL (test code = 0051471198) 25 mmol/L 23-31 AGAP (test code = 4315659642) 10 2-16 BUN (test code = 4929415715) 16 mg/dL 7-23 GLUCOSE (test code = 4147536115) 68 mg/dL 70-110 L CREATININE (test code = 5839671049) 0.63 mg/dL 0.50-1.04 TOTAL BILI (test code = 5059478873) 0.5 mg/dL 0.1-1.1 CALCIUM (test code = 4354370881) 9.2 mg/dL 8.6-10.6 T PROTEIN (test code = 0439593702) 7.5 g/dL 6.3-8.2 ALBUMIN (test code = 1697259157) 4.5 g/dL 3.5-5.0 ALK PHOS (test code = 3059167756) 73 U/L 34-122 ALTv (test code = 1742-6) 42 U/L 5-35 H AST(SGOT) (test code = 7475686853) 31 U/L 13-40 eGFR (test code = 7737986854) 101.3 mL/min/1.73m2 BRITTANY (test code = BRITTANY) Association [...] imaging tests). Lab Interpretation (test code = 40160-8) Abnormal [facility]2023-06-23 22:40:52* Test Item Value Reference Range Interpretation Comme nts LIPASE (test code = 6355946742) 106 U/L 0-220 Lab Interpretation (test cod e = 72330-5) Normal [facility] WITH FYKE2462-82-30 22:26:28* Test Item Value Reference Range Interpretation Comme nts WBC (test code = 6690-2) 6.47 See_Comment [Automated [employer] [place]] The system which generated this result transmitted reference range: 4.30 - 11.10 10*3/?L. The reference range was not used to interpret this result as normal/abnormal. RBC (test code = 789-8) 4.70 See_Comment [Automated [employer] [place]] The system which generated this result transmitted reference range: 3.93 - 5.25 10*6/?L. The reference range was not used to interpret this result as normal/abnormal. HGB (test code = 718-7) 14.3 g/dL 11.6-15.0 HCT (test code = 4544-3) 42.8 % 35.7-45.2 MCV (test code = 787-2) 91.1 fL 80.6-95.5 MCH (test code = 785-6) 30.4 pg 25.9-32.8 MCHC (test code = 786-4) 33.4 g/dL 31.6-35.1 RDW-SD (test code = 52805-4) 42.1 fL 39.0-49.9 RDW-CV (test code = 788-0) 12.7 % 12.0-15.5 PLT (test code = 777-3) 257 See_Comment [Automated [employer]] The system which generated this result transmitted reference range: 166 - 358 10*3/?L. The reference range was not used to interpret this result as normal/abnormal. MPV (test code = 94784-5) 11.1 fL 9.5-12.9 NRBC/100 WBC (test code = 6641921244) 0.0 See_Comment [Automated [employer] ssage] The system which generated this result transmitted reference range: 0.0 - 10.0 /100 WBCs. The reference range was not used to interpret this result as normal/abnormal. NRBC x10^3 (test code = 8332392857) See_Comment [Automated [employer]] The system which generated this result transmitted reference range: 10*3/?L. The reference range was not used to interpret this result as normal/abnormal. GRAN MAT (NEUT) % (test code = 770-8) 52.3 % IMM GRAN % (test code = 3979174098) 0.50 % LYMPH % (test code = 736-9) 32.5 % MONO % (test code = 5905-5) 9.1 % EOS % (test code = 713-8) 4.2 % BASO % (test code = 706-2) 1.4 % GRAN MAT x10^3(ANC) (test code = 9673891923) 3.39 10*3/uL 1.88-7.09 IMM GRAN x10^3 (test code = 8779549876) 0.03 10*3/uL 0.00-0.06 LYMPH x10^3 (test code = 731-0) 2.10 10*3/uL 1.32-3.29 MONO x10^3 (test code = 742-7) 0.59 10*3/uL 0.33-0.92 EOS x10^3 (test code = 711-2) 0.27 10*3/uL 0.03-0.39 BASO x10^3 (test code = 704-7) 0.09 10*3/uL 0.01-0.07 H Lab Interpretation (test code = 82709-3) [facility]BINAX NOW[facility]2022-12-05 20:09:00* Test Item Value Reference Range Interpretation Comme nts POCT SARS-COV-2 ANTIGEN (idania t code = 98689-1) Not Detected Not Detected On board controls acceptable with C Line (test code = 3574) Yes Lab Interpretation (test cod e = 87621-5) Normal [facility] METABOLIC PANEL (NA, K, CL, CO2, GLUCOSE, BUN, CREATININE, CA)2022-01-05 16:31:47* Test Item Value Reference Range Interpretation Comme nts NA (test code = 9761099077) 142 mmol/L 135-145 K (test code = 4323137431) 4.2 mmol/L 3.5-5.0 CL (test code = 9624363933) 109 mmol/L 98-108 H CO2 TOTAL (test code = 6891057931) 22 mmol/L 23-31 L AGAP (test code = 6446199580) 2-16 BUN (test code = 2579415601) 12 mg/dL 7-23 GLUCOSE (test code = 4212759200) 89 mg/dL 70-110 CREATININE (test code = 7771833473) 0.75 mg/dL 0.50-1.04 CALCIUM (test code = 5062277596) 8.9 mg/dL 8.6-10.6 eGFR (test code = 0056971592) mL/min/1.73m2 BRITTANY (test code = BRITTANY) Association [...] imaging tests). Lab Interpretation (test code = 61906-1) [facility]normal [facility] ([facility]) (ALB,T.PRO,BILI T,BU/BC,ALT,AST,ALK PHOS)2022-01-05 16:31:47* Test Item Value Reference Range Interpretation Comme nts TOTAL BILI (test code = 7183016353) 0.4 mg/dL 0.1-1.1 BILI UNCON (test code = 5264926193) 0.2 mg/dL 0.1-1.1 BILI CONJ (test code = 3557223942) 0.0 mg/dL 0.0-0.3 T PROTEIN (test code = 2786522659) 7.1 g/dL 6.3-8.2 ALBUMIN (test code = 2379451796) 4.4 g/dL 3.5-5.0 ALK PHOS (test code = 3037182925) 68 U/L 34-122 ALTv (test code = 1742-6) 21 U/L 5-35 AST(SGOT) (test code = 2878863636) 22 U/L 13-40 Lab Interpretation (test cod e = 02571-2) [facility] 16[facility]31:47* Test Item Value Reference Range Interpretation Comme nts LIPASE (test code = 3570554621) 123 U/L 0-220 Lab Interpretation (test cod e = 69064-6) Normal [facility] RKBZ8612-66-57 16:18:07* Test Item Value Reference Range Interpretation Comme nts WBC (test code = 6690-2) See_Comment [Automated messa ge] The system which generated this result transmitted reference range: 4.30 - 11.10 10*3/?L. The reference range was not used to interpret this result as normal/abnormal. RBC (test code = 789-8) See_Comment [Automated messa ge] The system which generated this result transmitted reference range: 3.93 - 5.25 10*6/?L. The reference range was not used to interpret this result as normal/abnormal. HGB (test code = 718-7) 14.7 g/dL 11.6-15.0 HCT (test code = 4544-3) 42.9 % 35.7-45.2 MCV (test code = 787-2) 89.2 fL 80.6-95.5 MCH (test code = 785-6) 30.6 pg 25.9-32.8 MCHC (test code = 786-4) 34.3 g/dL 31.6-35.1 RDW-SD (test code = 40724-5) 41.6 fL 39.0-49.9 RDW-CV (test code = 788-0) 12.6 % 12.0-15.5 PLT (test code = 777-3) See_Comment [Automated messa ge] The system which generated this result transmitted reference range: 166 - 358 10*3/?L. The reference range was not used to interpret this result as normal/abnormal. MPV (test code = 22124-3) 10.4 fL 9.5-12.9 NRBC/100 WBC (test code = 8603163634) See_Comment [Automated [employer] ssage] The system which generated this result transmitted reference range: 0.0 - 10.0 /100 WBCs. The reference range was not used to interpret this result as normal/abnormal. NRBC x10^3 (test code = 7542903928) <0.01 See_Comment [Automated messa ge] The system which generated this result transmitted reference range: 10*3/?L. The reference range was not used to interpret this result as normal/abnormal. GRAN MAT (NEUT) % (test code = 770-8) 53.5 % IMM GRAN % (test code = 3336933736) 0.60 % LYMPH % (test code = 736-9) 28.5 % MONO % (test code = 5905-5) 8.6 % EOS % (test code = 713-8) 7.7 % BASO % (test code = 706-2) 1.1 % GRAN MAT x10^3(ANC) (test code = 5418164879) 3.35 10*3/uL 1.88-7.09 IMM GRAN x10^3 (test code = 5490831654) 0.04 10*3/uL 0.00-0.06 LYMPH x10^3 (test code = 731-0) 1.79 10*3/uL 1.32-3.29 MONO x10^3 (test code = 742-7) 0.54 10*3/uL 0.33-0.92 EOS x10^3 (test code = 711-2) 0.48 10*3/uL 0.03-0.39 H BASO x10^3 (test code = 704-7) 0.07 10*3/uL 0.01-0.07 Lab Interpretation (test code = 21256-3) Abnormal [facility] WXMG2112-48-13 16:08:00* Test Item Value Reference Range Interpretation Comme nts POCT PREG (test code = 1605) Negative On board controls acceptable with C Line (test code = 3574) Present POCT PREG LOT # (test code = 3575) [id number] POCT PREG TEST DATE ( test code = 3576) 05/25/2023 Lab Interpretation (test cod e = 45203-1) Normal [facility] Notes Date/Time Note Provider Source 2023-08-15 14:43:18 MbbRMa52MaDFEVqiA30k rU5N4ES08dcODH +N3Wzdi7eZW46vWU76C6Fm7ZLwquPo1398 -12-21T14:43:18 Pt given printed and verbal discharge instructions regarding lupus, whole body pain, weight gain , encouraged hydration,Prescriptions providedPt verbalized understanding of instructions, pt awake alert oriented, resp reg unlabored, skin w/d, color appropriate for race, moves all ext well,pt encouraged to follow up with pcp.Advised to seek medical attention for new/prolonged/worsening of symptoms,Symptoms improved.No adverse reaction to meds given in ER noted upon dischargePIV d'cd, dressing to site, catheter in tact.Awake, alert oriented, resp reg unlabored, skin w/d, pt leaving amb with steady gait, in no apparent distress, [address]-8Ssbpzb[address] XnjqCC6821-34-87Z38:44:40[facility] NoteTXT1.2.840.228639.1.13.104.2.7 .2.574472|[id number] for patient cjms46430-3XagbNINKXGLAWIGRmqqljxi d C-CDA narrative text46 [id number] 51VHIRSXKZHYGTMJVOUUBHEM4550-58-82 T14:44:401.2.840.093330.1.72.3.15| 1.2.840.290625.1.13.104.2.7.2.7278 [id number] [facility] 2023-08-15 13:54:39 mOLMtjI16shSk3dTeIdk H4ZEOpBfWL0RDx G4rAHwgz4kgasZtwILHQL9KtXrc7ZJ1377 -12-21T13:54:39 Pt declined EKG at this time. [address]-6Runhaigjz[address] PwjiDH7129-94-75I29:54:50Emebaptist health medical center NoteTXT1.2.840.291023.1.13.104.2.7 .2.987336|[id number] for patient nhbd97032-9XaqjDAZRXATTSZXWcwgusfe d C-CDA narrative [id number] L Barker RNUT92 [address] [id number] 37QICCMPBGXFKCKPNKFWPNTP7845-00-57 T13:54:501.2.840.883227.1.72.3.15| 1.2.840.813338.1.13.104.2.7.2.7278 [id number] Selma L Dorie ELI [facility] 2023-08-15 12:20:19 pst7BMWe1KDjs1hTvOFP qSxeHMwlQ/eBJB 3tRLXdwr6A29GEkmkyXgZYku7F41W42214 -12-21T12:20:19 Safety NoteBed low/locked, side rails up x1, call light within reach, patient verbalized understanding of how[place] [address]-0Aiwivjtnt department YkncUR8380-90-18S79:20:30Emer[facility] NoteTXT1.2.840.491616.1.13.104.2.7 .2.814557|[id number] for patient vjnx37999-2VfyxCJJFPPCNQWWOwakheek d C-CDA narrative [id number] Post RN[address]G[id number] 32TQPJISTDTTRXGWSTEVKYAM4129-55-95 T12:20:301.2.840.981686.1.72.3.15| 1.2.840.210482.1.13.104.2.7.2.7278 [id number] Tamiko Post RN [facility] 2023-08-15 11:16:35 2Zvkf3fncjzj9jeVKAzV pD4SVA1OV7pHfc p9YTYWNF7xg0WesuqpOGUK0uVKuELj9038 -12-21T11:16:35 Patient arrived ambulatory c/o of bilateral leg swelling and pain in her legs. Denies any injury.Hx: lupus 97476-1Hdmkzvcwn department Triage ralpKU5809-41-30D81:18:08E[facility] Triage noteTXT1.2.840.154801.1.13.104.2.7 .2.126872|[id number] for patient vmyf29959-1Xupteujif department NoteLNNARRATIVEFormatted C-CDA narrative [id number] M Felix RNUT[address] Dw[id number] 23GKIHNLBVCLXVPIUBFHPJEG7637-60-78 T11:18:081.2.840.525115.1.72.3.15| 1.2.840.391502.1.13.104.2.7.2.7278 [id number] Krystal Manning RN [facility]"
--- NOTE | 2023-10-14 21:37 | RAD REPORT ---
EXAM DESCRIPTION: CT - Knee Left Wo Con - 10/14/2023 8:41 pm CLINICAL HISTORY: pain, swelling COMPARISON: No comparisons TECHNIQUE: Thin axial CT images of the left knee performed without IV contrast. Multiplanar reformat s were generated and reviewed. All CT scans are performed using dose optimization technique as appropriate and may include automated exposure control or mA/KV adjustment according to patient size. FINDINGS: No acute osseous abnormality. No focal suspicious osseous lesion. Mild suprapatellar joint effusion. Nonspecific mild soft tissue swelling about the knee most pronounc ed laterally. Joint alignment is maintained. Patellar relationship is maintained. Mild tricompartmental osteoarthri tic changes most notably along the weight-bearing compartments especially medially. The visualized soft tissues are otherwise unremarkable with no evidence of a suspicious mass or fluid collection. IMPRESSION: Mild suprapatellar knee joint effusion. No acute osseous abnormality. Mild tricompartmental osteoarthritic changes.
--- NOTE | 2023-10-14 21:42 | ER ---
Nurse's Notes [facility] Name: Joy Strauss Age: 48 yrs Sex: Female : 1975 Arrival Date: 10/14/2023 Time: 18:45 Bed 10 Private MD: Prakash Higgins Diagnosis: Effusion, left knee Presentation: 10/14 19:06 Chief complaint: Patient states: tipped and fell on Saturday after her shoe got stuck; km8 pt reports pain to left knee still and swelling. Coronavirus screen: Client denies travel out of the [place] in the last 14 days. Ebola Screen: No symptoms or risks identified at this time. Initial Sepsis Screen: Does the patient meet any 2 criteria? No. Patient's initial sepsis screen is negative. Does the patient have a suspected source of infection? No. Patient's initial sepsis screen is negative. Risk Assessment: Do you want to hurt yourself or someone else? Patient reports no desire to harm self or others. Onset of symptoms was October 12, 2023. 19:06 Method Of Arrival: Ambulatory km8 19:06 Acuity: FÉLIX 4 km8 Triage Assessment: 19:06 General: Appears in no apparent distress. uncomfortable, Behavior is calm, cooperative, km8 appropriate for age. Pain: Complains of pain in left knee Pain currently is 7 out of 10 on a pain scale. EENT: No signs and/or symptoms were reported regarding the EENT system. Neuro: Level of Consciousness is awake, alert, obeys commands, Oriented to person, place, time, situation. Cardiovascular: Denies chest pain, shortness of breath, Capillary refill < 3 seconds Patient's skin is warm and dry. Respiratory: Airway is patent Respiratory effort is even, unlabored, Respiratory pattern is regular, symmetrical. GI: No signs and/or symptoms were reported involving the gastrointestinal system. : No signs and/or symptoms were reported regarding the genitourinary system. Derm: Skin is healthy with good turgor, Skin is dry, Skin is pink, warm \T\ dry. normal, Skin temperature is warm. Musculoskeletal: Circulation, motion, and sensation intact. Range of motion: limited in left knee Swelling present in left knee. 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 - Social history:: Smoking status: unknown. Screenin:43 [facility] ED Fall Risk Assessment (Adult) History of falling in the last 3 months, me1 including since admission Yes- single mechanical fall (1 pt) Confusion or Disorientation No (0 pts) Intoxicated or Sedated No (0 pts) Impaired Gait No (0 pts) Mobility Assist Device Used No (0 pt) Altered Elimination No (0 pt) Score/Fall Risk Level 0 - 2 = Low Risk Maintained a safe environment, Provided non-skid footwear, Hourly rounding (assess needs \T\ fall precautionary measures) done. Abuse screen: Denies threats or abuse. Nutritional screening: No deficits noted. Tuberculosis screening: No symptoms or risk factors identified. Assessment: 19:43 Reassessment: No changes from previously documented assessment. mi1 Vital Signs: 19:06 BP 146 / 97; Pulse 119; Resp 18; Temp 99(TE); Pulse Ox 100% on R/A; Weight 88.45 kg km8 (R); Height 5 ft. 1 in. (R); Pain 7/10; 19:15 BP 134 / 75; Pulse 92; Resp 16; Pulse Ox 99% on R/A; me1 20:00 BP 128 / 78; Pulse 92; Resp 16; Pulse Ox 100% on R/A; me1 20:58 BP 159 / 94; Pulse 106; Resp 18; Pulse Ox 99% on R/A; me1 19:06 Body Mass Index 36.84 (88.45 kg, 154.94 cm) km8 19:06 Pain Scale: Adult 8 ED Course: 18:47 Patient arrived in ED. rg4 18:48 Prakash Higgins DO is Private Physician. rg4 18:48 Jamila Perez PA-C is PHCP. sb4 18:48 Norberto Aguirre MD is Attending Physician. sb4 19:06 Arm band placed on right wrist. km8 19:08 Triage completed. km8 19:31 Kiley Tovar, RN is Primary Nurse. me1 19:43 Patient has correct armband on for positive identification. Bed in low position. Call me1 light in reach. Side rails up X2. Provided Education on: POC. Verbalized understanding. . 19:43 No provider procedures requiring assistance completed. Patient did not have IV access me1 during this emergency room visit. 20:42 Knee Left Wo Con In Process Unspecified. EDMS 21:41 Valeriy Varela MD is Referral Physician. sb4 Administered Medications: 19:42 Drug: morphine IM 4 mg IM once Route: IM; Site: right gluteus; me1 19:49 Follow up: Response: No adverse reaction; Pain is decreased me1 19:42 Drug: Ondansetron Oral Disintegrating Tablet Oral Disintegrating Tablet 4 mg PO once me1 Route: PO; 19:49 Follow up: Response: No adverse reaction me1 20:32 Drug: Promethazine IM 25 mg IM once Route: IM; Site: right gluteus; me1 21:00 Follow up: Response: No adverse reaction; Nausea is decreased me1 Medication: 19:48 VIS not applicable for this client. me1 Outcome: 21:42 Discharge ordered by . sb4 22:17 Discharged to home ambulatory, with crutches, me1 22:17 Condition: stable 22:17 Discharge instructions given to patient, Instructed on discharge instructions, follow up and referral plans. crutch walking, Demonstrated understanding of instructions, follow-up care, crutch walking, 22:18 Patient left the ED. me1 Signatures: Dispatcher [employer] EDNJ Alissa Olivo rg4 Jamila Perez, PA-C PA-C sb4 Kiley Tovar, RN RN me1 Yancy Montana RN RN km8 Corrections: (The following items were deleted from the chart) 19:42 19:06 Chief complaint: Patient states: tipped and fell on Saturday after her shoe got me1 stuck; pt reports pain to left knee still and swelling km8
--- NOTE | 2023-10-14 21:43 | EDPHYS ---
Physician Documentation [facility] Name: Joy Strauss Age: 48 yrs Sex: Female : 1975 Arrival Date: 10/14/2023 Time: 18:45 Bed 10 Private MD: Ronaldo Pending Sale To [facility] ED Physician Norberto Aguirre HPI: 10/14 19:13 This 48 yrs old Female presents to ER via Ambulatory with complaints of Fall Injury, sb4 Knee Pain. 19:15 patient states that she tripped and fell a few days ago onto her front- scraping her sb4 arms and knees bilaterally. she states her left knee pain has persisted and is not improved by norco. 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 - Social history:: Smoking status: unknown. ROS: 19:15 Constitutional: Negative for fever, chills, and weight loss, sb4 19:15 MS/extremity: Positive for injury or acute deformity, pain, swelling, of the left knee, 19:15 All other systems are negative, Exam: 19:15 Constitutional: This is a well developed, well nourished patient who is awake, alert, sb4 and in no acute distress. Head/Face: Normocephalic, atraumatic. Eyes: Extra-ocular motions intact. Periorbital areas with no swelling, redness, or edema. ENT: Mucous membranes moist. Skin: Warm, dry with normal turgor. Normal color with no rashes, no lesions, and no evidence of cellulitis. Neuro: Awake and alert, GCS 15, oriented to person, place, time, and situation. Motor strength 5/5 in all extremities. Sensory grossly intact. 19:15 Musculoskeletal/extremity: ROM: limited active range of motion, in the left knee, limited passive range of motion due to pain, Circulation is intact in all extremities. Pulses: are normal with no appreciated deficits, Perfusion: the extremity is normally perfused throughout, Sensation intact. Vital Signs: 19:06 BP 146 / 97; Pulse 119; Resp 18; Temp 99(TE); Pulse Ox 100% on R/A; Weight 88.45 kg km8 (R); Height 5 ft. 1 in. (R); Pain 7/10; 19:15 BP 134 / 75; Pulse 92; Resp 16; Pulse Ox 99% on R/A; me1 20:00 BP 128 / 78; Pulse 92; Resp 16; Pulse Ox 100% on R/A; me1 20:58 BP 159 / 94; Pulse 106; Resp 18; Pulse Ox 99% on R/A; me1 19:06 Body Mass Index 36.84 (88.45 kg, 154.94 cm) [facility] 19:06 Pain Scale: Adult km8 MDM: 19:01 Patient medically screened. sb4 19:15 Differential diagnosis: contusion, fracture, sprain, strain. sb4 21:41 Data reviewed: vital signs, nurses notes, radiologic studies, and as a result, I will sb4 discharge patient. Counseling: I had a detailed discussion with the patient and/or guardian regarding the historical points, exam findings, and any diagnostic results supporting the discharge/admit diagnosis, radiology results, the need for outpatient follow up, a orthopedic surgeon, to return to the emergency department if symptoms worsen or persist or if there are any questions or concerns that arise at home. 10/14 19:15 Order name: Knee Left Wo Con; Complete Time: 21:41 EDMS 10/14 21:41 Order name: Knee Immobilizer; Complete Time: 22:01 sb4 10/14 21:41 Order name: Crutches; Complete Time: 22:01 sb4 Administered Medications: 19:42 Drug: morphine IM 4 mg IM once Route: IM; Site: right gluteus; me1 19:49 Follow up: Response: No adverse reaction; Pain is decreased me1 19:42 Drug: Ondansetron Oral Disintegrating Tablet Oral Disintegrating Tablet 4 mg PO once me1 Route: PO; 19:49 Follow up: Response: No adverse reaction me1 20:32 Drug: Promethazine IM 25 mg IM once Route: IM; Site: right gluteus; me1 21:00 Follow up: Response: No adverse reaction; Nausea is decreased me1 Disposition Summary: 10/14/23 21:42 Discharge Ordered Notes: Location: Home sb4 Problem: an ongoing problem sb4 Symptoms: have improved sb4 Condition: Stable sb4 Diagnosis - Effusion, left knee sb4 Followup: sb4 - With: Valeriy Varela MD - When: As needed - Reason: Further diagnostic work-up, Recheck today's complaints, Re-evaluation by your physician Discharge Instructions: - Discharge Summary Sheet sb4 - Knee Effusion sb4 - Knee Sprain, Adult, Mxmv-mf-Cuct sb4 Forms: - Thank You Letter sb4 - Patient Portal Instructions sb4 - Leadership Thank You Letter sb4 Signatures: Dispatcher [employer] Jamila Reyna PA-C PA-C sb4 Kiley Tovar, RN RN me1
[2023-10-14 23:08] VITALS: BP 159/94; TEMP 99; O2SAT 99
== END ==
LOC: ER 18:45
DX: M25.462 Effusion, left knee (principal)
CPT/HCPCS: 73700; 96372; 99284; J2550; Q0162

== ENCOUNTER 2023-12-01 18:09 | Emergency (ER) | payer OTHER ==
--- OUTSIDE RECORDS SUMMARY | 2023-12-01 18:14 | XMS REPORT | Continuity of Care Document ---
Author Name Unknown Address [address] [facility] [address] [place] [address] [facility] Address [address] [facility] [address] [place] [address] Care Team Providers Care Director Skills Name Role Phone Angel Higginsantonio Yuan Primary Care Physician [phone] Angel Higginsantonio Yuan Attending Clinician Unavailable CRISTEL VARGAS Attending Clinician Unavailable CRISTEL VARGAS Attending Clinician Unavailable Unknown, Attending Attending Clinician Unavailab Hakan Colindres Attending Clinician Unavailable Hakan Guzman Attending Clinician [phone] Doctor Unassigned, Donnellson Attending Clinician U navailable LV WOLF Attending Clinician Unavailable Lv Elizalde Attending Clinician [phone] YANA HAWTHORNE Attending Clinician Unavailable YANA HAWTHORNE Attending Clinician Unavailable NATALIA VÁSQUEZ Attending Clinician Unavailable Natalia Vega Attending Clinician [phone] Etta Solares RN Attending Clinician Unavailable MELISSA YANCEY Attending Clinician Unavailable Melissa Yancey MD Attending Clinician [phone] UNKNOWN, ATTENDING Attending Clinician Unavailab ARCENIO Martínez Attending Clinician Unavailable Arceino Napoles PA-C Attending Clinician [phone] Bill MICROELECTRONICS TECHNICIAN, Fidencio Attending Clinician [phone] Green MICROELECTRONICS TECHNICIAN, Mary Kay Attending Clinician [phone] GARY GONZALEZ Attending Clinician Unavailable Carlos MICROELECTRONICS TECHNICIAN, Gary Attending Clinician [phone] Only, Ang Db Test Attending Clinician UnavailFIDENCIO Pollard Attending Clinician UnavailJENNA Pryor Attending Clinician Unavailable Jenna Garcia Attending Clinician [phone] Jason Perkins MD Attending Clinician [phone] CARLOS ANDERSON Attending Clinician Unavailable Boby Bal DO Attending Clinician [phone] Willy Grace DO Attending Clinician [phone] Dionne Sierra NP Attending Clinician [phone] Tori Shaw DO Attending Clinician [phone] Kaylah Pool Attending Clinician [phone] RADIOLOGY Attending Clinician Unavailable Radiology Attending Clinician Unavailable KAYLAH WOLFF Attending Clinician Unavailable BOBY BAL Attending Clinician Unavailable ANDREW MAXWELL Attending Clinician Unavailable Hakan CONTI Admitting Clinician Unavailable GARY GONZALEZ Admitting Clinician Unavailable ADELFO MONTEIRO Admitting Clinician Unavailable BOBY BAL Admitting Clinician Unavailable Payers Payer Name Policy Type Policy Number Effective Date Expirati on Date Source MEDICARE PART A \\T\\ [id number] 2006 00:00:00 [facility] MEDICAID [id number] 2016 00:00:00 MEDICAID [facility] [id number] 2011 00:00:00 MEDICAID [id number] 2020 00:00:00 [facility] [id number] 2006 00:00:00 [facility] MEDICAID [id number] 2020 00:00:00 [facility] MEDICARE NOVITAS MB [id number] 2006 00:00:00 [facility] JODY GUILLORY PLS O [id number] 2019 00:00:00 2020 00:00:00 Problems Condition Name Condition Details Condition Category Status Onset Date Resolution Date Last Treatment Date Treating Clinician Comments Source Right ankle pain Right ankle pain Disease Active 05-15 00:00: 00 [facility] Encounter for sterilizat ion Encounter for sterilizat ion Disease Active 01-16 00:00: 00 [facility] Lupus Lupus Problem [facility] [id number] Body mass index [BMI] 35.0-35.9, adult Problem [facility] [id number] Morbid (severe) obesity due to excess calories Problem [facility] [id number] Uncomplica olivia opioid dependence Problem [facility] [id number] Current moderate episode of major depressive disorder without prior episode Problem [facility] [id number] Bipolar affective disorder, currently depressed, moderate Problem [facility] 1984522 Primary insomnia Problem [facility] [id number] SPENCER (generaliz ed anxiety disorder) Problem [facility] [id number] Ulcerative colitis with complicati on, unspecifie d location Problem [facility] [id number] Chronic fatigue Problem [facility] [id number] Gastroesop hageal reflux disease without esophagiti s Problem [facility] [id number] Migraine without aura and without status migrainosu s, not intractabl e Problem [facility] 74681290 Other chronic pain Problem [facility] [id number] DDD (degenerat bandar disc disease), lumbar Problem [facility] 16426847 Vitamin D deficiency Problem [facility] 23637005 Systemic lupus erythemato heather, unspecifie d SLE type, unspecifie d organ involvemen t status Problem [facility] Allergies, Adverse Reactions, Alerts Allergy Name Allergy Type Status Severity Reaction(s) Onset Date Inactive Date Treating Clinician Comments Source NO KNOWN ALLERGIE S Drug Class Active [facility] Social History Social Habit Start Date Stop Date Quantity Comments Source History of Tobacco Use [facility] Sex Assigned At [facility] Gender identity [facility] 2023-11-07 00:00:00 2023-11-07 00:00:00 0 /d [facility] Exposure to SARS-CoV-2 (event) 2022-11-25 00:00:00 2022-12-05 14:43:00 Not sure [facility] History of Social function 2022-12-05 00:00:00 2022-12-05 00:00:00 [facility] Tobacco use and exposure 2016-05-15 00:00:00 2016-05-15 00:00:00 Smokeless tobacco non-user [facility] Smoking Status Start Date Stop Date Source Never smoked tobacco [facility] Medications Ordered Medication Name Filled Medication Name Start Date Stop Date Current Medication? Ordering Clinician Indication Dosage Frequency Signature (SIG) Comments Components Source ondansetron 4 mg disintegrat ing tablet 11-06 00:00: 00 11-10 04:59 :00 Yes [id number] 8mg Take 2 tablets by mouth every 8 (eight) hours as needed for Nausea and Vomiting (N/V) for up to 3 days. [facility] methylpredn isolone sod succ (SOLU-MEDRO L) injection 125 mg 10-22 18:15: 00 10-22 17:29 :00 No 125mg 125 mg, Intramuscu lar, ONCE, 1 dose, On Sat10/22/23 at 1215, TOY [facility] predniSONE 20 mg tablet 10-22 00:00: 00 Yes [id number] 1 PO BID x 4 days [facility] methylPREDN ISolone 4 mg tablets 2022-08 00:00: 00 Yes [id number] Take by mouth SEE-INSTRU CTIONS. follow package directions [facility] methylpredn isolone sod succ (SOLU-MEDRO L) injection 125 mg 2022-08- 20:30: 00 08-15 20:02 :00 No 125mg 125 mg, Intravenou s, ONCE, 1 dose, On Portia 08/15/23 at 1430, Routine [facility] oseltamivir (TAMIFLU) 75 mg capsule 2022-08 00:00: 00 07-07 05:59 :00 No [id number] 75mg Take 1 capsule by mouth in the morning and 1 capsule in the evening. Do all this for 5 days. [facility] cephALEXin (KEFLEX) 500 mg capsule 2022-08 00:00: 00 07-06 05:59 :00 No [id number] 500mg Take 1 capsule by mouth 4 (four) times daily for 10 days. [facility] belimumab (BENLYSTA) 200 mg/mL AtIn 2022-08 17:41: 24 Yes INJECT 200MG SUBCUTANEO USLY ONCE A WEEK [facility] ondansetron 4 mg disintegrat ing tablet 2022-08 00:00: 00 11-06 00:00 :00 No [id number] 4mg Take 1 tablet by mouth every 12 (twelve) hours as needed for Nausea and Vomiting (N/V). [facility] dicyclomine 10 mg capsule 05-02 00:00: 00 05-10 04:59 :00 No [id number] 10mg Take 1 capsule by mouth 4 (four) times daily for 7 days. [facility] ondansetron 4 mg disintegrat ing tablet 05-02 00:00: 00 05-08 04:59 :00 No [id number] 4mg Take 1 tablet by mouth every 8 (eight) hours as needed for Nausea and Vomiting (N/V) for up to 5 days. [facility] proMETHazin e (PHENERGAN) tablet 25 mg 02-16 00:45: 00 02-16 00:31 :00 No 25mg 25 mg, Oral, ONCE, 1 dose, On Sat02/15/23 at 1945, TOY [facility] iopamidol (ISOVUE 370-500 mL) injection 80 mL 02-15 23:15: 00 02-15 23:15 :00 No [id number] 80mL 80 mL, Intravenou s, ONCE, 1 dose, On Sat02/15/23 at 1815, Routine [facility] NaCl 0.9% (NS) bolus infusion 1,000 mL 02-15 22:45: 00 02-16 01:36 :00 No 1000mL at 999 mL/hr, 1,000 mL, IV Infusion, ONCE, 1 dose, On Sat02/15/23 at 1745, STAT [facility] proMETHazin e 25 mg tablet 02-15 00:00: 00 04-02 00:00 :00 No [id number] 25mg Take 1 tablet by mouth every 4 (four) hours as needed for Nausea and Vomiting (N/V). [facility] dicyclomine 10 mg capsule 12 00:00: 00 04-02 00:00 :00 No [id number] 10mg Take 1 capsule by mouth 4 (four) times daily. [facility] Kenalog (Triamcinol one) Kenalog (Triamcinol one) 2021-08 00:00: 00 No 40mg [facility] Kenalog (Triamcinol one) Kenalog (Triamcinol one) 2021-08 00:00: 00 No 40mg [facility] Kenalog (Triamcinol one) Kenalog (Triamcinol one) 2021-08 00:00: 00 No 40mg [facility] hydroxychlo roquine sulfate (PLAQUENIL ORAL) 2021-08 005 11:33: 32 Yes Take by mouth. [facility] proMETHazin e 25 mg tablet 2021-08 005 00:00: 00 04-02 00:00 :00 No [id number] 25mg Take 1 tablet by mouth every 6 (six) hours as needed for Nausea and Vomiting (N/V). [facility] proMETHazin e 25 mg tablet 01-16 00:00: 00 01-22 04:59 :00 No [id number] 25mg Take 1 tablet by mouth every 6 (six) hours for 5 days. [facility] ondansetron (ZOFRAN (PF)) injection 4 mg 01-05 17:00: 00 01-05 16:46 :00 No 4mg 4 mg, Slow IV Push, ONCE, 1 dose, On Sat01/05/22 at 1200, [facility] ketorolac tromethamin e (TORADOL) injection 15 mg 01-05 17:00: 01-05 17:00 :00 No 15mg 15 mg, Slow IV Push, ONCE, 1 dose, On Sat01/05/22 at 1200, [facility] docusate 100 mg capsule 01-05 00:00: 00 02-05 04:59 :00 No [id number] 100mg Take 1 capsule by mouth daily for 30 days. [facility] polyethylen e glycol 3350 (MIRALAX) 17 gram/dose powder 01-05 00:00: 00 01-11 04:59 :00 No [id number] 17g Take 17 g by mouth 2 (two) times daily for 5 days. [facility] sennosides (SENOKOT) 8.6 mg tablet 01-05 00:00: 00 01-11 04:59 :00 No [id number] 8.6mg Take 1 tablet by mouth daily for 5 days. [facility] hydroxychlo roquine sulfate (PLAQUENIL ORAL) 03-09 19:46: 21 Yes Take by mouth. [facility] proMETHazin e 25 mg suppository 03-09 00:00: 00 04-02 00:00 :00 No [id number] 25mg Insert 1 Suppositor y into rectum every 4 (four) hours as needed for Nausea and Vomiting (N/V). [facility] Omeprazole 20 MG Omeprazole 20 MG 02-09 00:00: 00 No QD Omeprazole 20 MG naproxen sodium (ANAPROX DS) 550 mg tablet 12-06 00:00: 00 04-02 00:00 :00 No [id number] 550mg Take 1 tablet by mouth 2 (two) times daily with meals. [facility] methylPREDN ISolone (MEDROL, HERMAN,) 4 mg tablets 12-06 00:00: 00 04-02 00:00 :00 No [id number] Take by mouth SEE-INSTRU CTIONS. follow package directions [facility] topiramate 100 mg tablet 10-27 15:41: 01 Yes topiramate 100 mg tablet Take 1 tablet every day by oral route in the morning for 28 days. [facility] HYDROcodone -acetaminop hen (NORCO 5) 5-325 mg tablet 2018-08 13:34: 10 Yes 1{tbl} Take 1 tablet by mouth 2 (two) times daily. [facility] tiZANidine 4 mg capsule 2018-08 13:34: 10 Yes 4mg Take 4 mg by mouth 3 (three) times daily. [facility] phentermine 37.5 mg tablet 2018-08 13:34: 10 Yes 37.5mg Take 37.5 mg by mouth daily with breakfast. [facility] zolpidem (AMBIEN) 10 mg tablet 2018-08 13:34: 10 Yes 10mg Take 10 mg by mouth at bedtime as needed for Insomnia. [facility] SUMAtriptan (IMITREX) 50 mg tablet 2018-08 13:34: 10 Yes Imitrex 50 mg tablet Take 1 tablet every day by oral route as needed for 30 days. [facility] IBUPROFEN 400 mg tablet 11-09 00:00: 00 12-05 00:00 :00 No 400mg Take 1 tablet by mouth every 6 (six) hours as needed for Pain (scale 1-3). [facility] omeprazole (PRILOSEC) 40 mg capsule 01-09 00:00: 00 12-05 00:00 :00 No 40mg Take 1 capsule by mouth daily. [facility] Vraylar 6 MG Vraylar 6 MG No [...] No 1{capsu le} QD Vraylar 6 MG Vraylar 6 MG Vraylar 6 MG [...] Plaquenil 200 MG No Plaquenil 200 MG Imuran 50 MG Imuran 50 MG [...] dtime_a s_neede d} QD Ambien 10 MG Immunizations Ordered Immunization Name Filled Immunization Name Date Status Comments Source Adacel (Tdap) Adacel (Tdap) 2020-08-25 15:49:00 Completed [facility] Adacel (Tdap) Adacel (Tdap) 2020-08-25 15:49:00 Completed [facility] Adacel (Tdap) Adacel (Tdap) 2020-08-25 15:49:00 Completed [facility] Adacel (Tdap) Adacel (Tdap) 2020-08-25 15:49:00 Completed [facility] Adacel (Tdap) Adacel (Tdap) 2020-08-25 15:49:00 Completed [facility] Adacel (Tdap) Adacel (Tdap) 2020-08-25 15:49:00 Completed [facility] Adacel (Tdap) Adacel (Tdap) 2020-08-25 15:49:00 Completed [facility] Adacel (Tdap) Adacel (Tdap) 2020-08-25 15:49:00 Completed [facility] Adacel (Tdap) Adacel (Tdap) 2020-08-25 15:49:00 Completed [facility] Adacel (Tdap) Adacel (Tdap) 2020-08-25 15:49:00 Completed [facility] TDAP 2019-01-26 00:00:00 Completed [facility] TDAP 2019-01-26 00:00:00 Completed [facility] TDAP 2019-01-26 00:00:00 Completed [facility] TDAP 2019-01-26 00:00:00 Completed [facility] TDAP 2019-01-26 00:00:00 Completed [facility] TDAP 2019-01-26 00:00:00 Completed [facility] TDAP 2019-01-26 00:00:00 Completed [facility] TDAP 2019-01-26 00:00:00 Completed [facility] TDAP 2019-01-26 00:00:00 Completed [facility] TDAP 2019-01-26 00:00:00 Completed [facility] TDAP 2019-01-26 00:00:00 Completed [facility] Adacel (Tdap) Adacel (Tdap) Unknown Completed [facility] Adacel (Tdap) Adacel (Tdap) Unknown Completed [facility] TDAP Unknown Completed [facility] TDAP Unknown Completed [facility] TDAP Unknown Completed [facility] TDAP Unknown Completed [facility] TDAP Unknown Completed [facility] TDAP Unknown Completed [facility] TDAP Unknown Completed [facility] TDAP Unknown Completed [facility] TDAP Unknown Completed [facility] TDAP Unknown Completed [facility] TDAP Unknown Completed [facility] TDAP Unknown Completed [facility] Vital Signs Vital Name Observation Time Observation Value Comments S ource Systolic blood pressure 2023-11-07 23:23:00 113 mm[Hg] [facility] Diastolic blood pressure 2023-11-07 23:23:00 72 mm[Hg] [facility] Heart rate 2023-11-07 23:22:00 100 /[facility] Body [facility] 2023-11-07 23:22:00 36.94 Meredith [facility] Respiratory rate 2023-11-07 23:22:00 20 /min [facility] Body height 2023-11-07 23:22:00 154.9 cm [facility] Body weight 2023-11-07 23:22:00 89.495 kg [facility] BMI 2023-11-07 23:22:00 37.28 kg/m2 [facility] Oxygen saturation in Arterial blood by Pulse oximetry 2023-11-07 23:22:00 99 /min [facility] Systolic blood pressure 2023-10-22 16:38:00 144 mm[Hg] [facility] Diastolic blood pressure 2023-10-22 16:38:00 93 mm[Hg] [facility] Heart rate 2023-10-22 16:38:00 110 /min [facility] Body temperature 2023-10-22 16:38:00 36.67 Meredith [facility] Respiratory rate 2023-10-22 16:38:00 22 /min [facility] Body weight 2023-10-22 16:38:00 83.915 kg [facility] BMI 2023-10-22 16:38:00 36.13 kg/m2 [facility] Oxygen saturation in Arterial blood by Pulse oximetry 2023-10-22 16:38:00 100 /min [facility] Systolic blood pressure 2023-08-15 20:02:00 121 mm[Hg] [facility] Diastolic blood pressure 2023-08-15 20:02:00 80 mm[Hg] [facility] Heart rate 2023-08-15 20:02:00 89 /[facility] Body temperature 2023-08-15 20:02:00 36.89 Meredith [facility] Respiratory rate 2023-08-15 20:02:00 13 /min [facility] Oxygen saturation in Arterial blood by Pulse oximetry 2023-08-15 19:02:00 100 /min [facility] Body height 2023-08-15 17:17:00 152.4 cm [facility] Body weight 2023-08-15 17:17:00 83.915 kg [facility] BMI 2023-08-15 17:17:00 36.13 kg/m2 [facility] Systolic blood pressure 2023-07-01 20:04:00 119 mm[Hg] [facility] Diastolic blood pressure 2023-07-01 20:04:00 80 mm[Hg] [facility] Heart rate 2023-07-01 20:04:00 96 /min [facility] Body temperature 2023-07-01 20:04:00 37.28 Meredith [facility] Respiratory rate 2023-07-01 20:04:00 17 /min [facility] Body height 2023-07-01 20:04:00 152.4 cm [facility] Body weight 2023-07-01 20:04:00 89.767 kg [facility] BMI 2023-07-01 20:04:00 38.65 kg/m2 [facility] Oxygen saturation in Arterial blood by Pulse oximetry 2023-07-01 20:04:00 99 /min [facility] Systolic blood pressure 2023-07-01 17:29:00 128 mm[Hg] [facility] Diastolic blood pressure 2023-07-01 17:29:00 99 mm[Hg] [facility] Heart rate 2023-07-01 17:29:00 105 /min [facility] Body temperature 2023-07-01 17:29:00 37.11 Meredith [facility] Respiratory rate 2023-07-01 17:29:00 16 /min [facility] Body height 2023-07-01 17:29:00 152.4 cm [facility] Body weight 2023-07-01 17:29:00 87.091 kg [facility] BMI 2023-07-01 17:29:00 37.50 kg/m2 [facility] Oxygen saturation in Arterial blood by Pulse oximetry 2023-07-01 17:29:00 100 /min [facility] Systolic blood pressure 2023-06-25 16:01:00 138 mm[Hg] [facility] Diastolic blood pressure 2023-06-25 16:01:00 83 mm[Hg] [facility] Heart rate 2023-06-25 16:01:00 108 /min [facility] Body temperature 2023-06-25 16:01:00 36.44 Meredith [facility] Respiratory rate 2023-06-25 16:01:00 20 /min [facility] Body height 2023-06-25 16:01:00 152.4 cm [facility] Body weight 2023-06-25 16:01:00 91.343 kg [facility] BMI 2023-06-25 16:01:00 39.33 kg/m2 [facility] Oxygen saturation in Arterial blood by Pulse oximetry 2023-06-25 16:01:00 97 /min [facility] Systolic blood pressure 2023-06-17 22:06:00 133 mm[Hg] [facility] Diastolic blood pressure 2023-06-17 22:06:00 82 mm[Hg] [facility] Heart rate 2023-06-17 22:06:00 84 /min [facility] Body temperature 2023-06-17 22:06:00 36.61 Meredith [facility] Respiratory rate 2023-06-17 22:06:00 17 /min [facility] Body height 2023-06-17 22:06:00 152.4 cm [facility] Body weight 2023-06-17 22:06:00 86.183 kg [facility] BMI 2023-06-17 22:06:00 37.11 kg/m2 [facility] Oxygen saturation in Arterial blood by Pulse oximetry 2023-06-17 22:06:00 98 /min [facility] Systolic blood pressure 2023-05-02 21:58:00 131 mm[Hg] [facility] Diastolic blood pressure 2023-05-02 21:58:00 83 mm[Hg] [facility] Heart rate 2023-05-02 21:58:00 100 /min [facility] Body temperature 2023-05-02 21:58:00 36.17 Meredith [facility] Respiratory rate 2023-05-02 21:58:00 16 /min [facility] Body height 2023-05-02 21:58:00 152.4 cm [facility] Body weight 2023-05-02 21:58:00 89.54 kg [facility] BMI 2023-05-02 21:58:00 38.55 kg/m2 [facility] Oxygen saturation in Arterial blood by Pulse oximetry 2023-05-02 21:58:00 96 /min [facility] Systolic blood pressure 2023-04-02 18:16:00 122 mm[Hg] [facility] Diastolic blood pressure 2023-04-02 18:16:00 88 mm[Hg] [facility] Heart rate 2023-04-02 18:16:00 101 /min [facility] Body temperature 2023-04-02 18:16:00 36.83 Meredith [facility] Respiratory rate 2023-04-02 18:16:00 18 /min [facility] Body height 2023-04-02 18:16:00 154.9 cm [facility] Body weight 2023-04-02 18:16:00 86.909 kg [facility] BMI 2023-04-02 18:16:00 36.20 kg/m2 [facility] Oxygen saturation in Arterial blood by Pulse oximetry 2023-04-02 18:16:00 98 /min [facility] Systolic blood pressure 2023-02-16 02:40:00 132 mm[Hg] [facility] Diastolic blood pressure 2023-02-16 02:40:00 72 mm[Hg] [facility] Heart rate 2023-02-16 02:40:00 84 /min [facility] Respiratory rate 2023-02-16 02:40:00 16 /min [facility] Oxygen saturation in Arterial blood by Pulse oximetry 2023-02-16 02:40:00 98 /min [facility] Body temperature 2023-02-15 19:39:00 36.78 Meredith [facility] Body height 2023-02-15 19:39:00 154.9 cm [facility] Body weight 2023-02-15 19:39:00 86.637 kg [facility] BMI 2023-02-15 19:39:00 36.09 kg/m2 [facility] Systolic blood pressure 2022-12-05 19:51:00 126 mm[Hg] [facility] Diastolic blood pressure 2022-12-05 19:51:00 83 mm[Hg] [facility] Heart rate 2022-12-05 19:51:00 92 /min [facility] Body temperature 2022-12-05 19:51:00 36.61 Meredith [facility] Respiratory rate 2022-12-05 19:51:00 16 /min [facility] Body height 2022-12-05 19:51:00 152.4 cm [facility] Body weight 2022-12-05 19:51:00 89.841 kg [facility] BMI 2022-12-05 19:51:00 38.68 kg/m2 [facility] Oxygen saturation in Arterial blood by Pulse oximetry 2022-12-05 19:51:00 96 /min [facility] height 2022-07-04 08:20:00 61 [in_i] [facility] weight 2022-07-04 08:20:00 191.5 [lb_av] [facility] temperature 2022-07-04 08:20:00 97.2 [degF] Com [facility] bmi 2022-07-04 08:20:00 36.18 kg/m2 [facility] oximetry 2022-07-04 08:20:00 99 % [facility] respiratory rate 2022-07-04 08:20:00 18 /min [facility] blood pressure systolic 2022-07-04 08:20:00 115 mm[Hg] [facility] blood pressure diastolic 2022-07-04 08:20:00 71 mm[Hg] [facility] Systolic blood pressure 2022-05-30 16:35:00 133 mm[Hg] [facility] Diastolic blood pressure 2022-05-30 16:35:00 89 mm[Hg] [facility] [facility] Heart rate 2022-05-30 16:35:00 116 /min [facility] Body temperature 2022-05-30 16:35:00 36.89 [facility] Respiratory rate 2022-05-30 16:35:00 18 /min [facility] Body height 2022-05-30 16:35:00 152.4 cm [facility] Body weight 2022-05-30 16:35:00 88.99 kg [facility] BMI 2022-05-30 16:35:00 38.32 kg/m2 [facility] Oxygen saturation in Arterial blood by Pulse oximetry 2022-05-30 16:35:00 100 /min [facility] height 2022-03-14 13:50:00 61 [in_i] Commo n [facility] weight 2022-03-14 13:50:00 189 [lb_av] Comm on [facility] temperature 2022-03-14 13:50:00 97.6 [degF] Com mon [facility] bmi 2022-03-14 13:50:00 35.71 kg/m2 Comm on [facility] oximetry 2022-03-14 13:50:00 100 % Commo n [facility] respiratory rate 2022-03-14 13:50:00 16 /min [facility] blood pressure systolic 2022-03-14 13:50:00 132 mm[Hg] [facility] blood pressure diastolic 2022-03-14 13:50:00 73 mm[Hg] [facility] height 2022-03-14 13:40:00 61 [in_i] Commo n [facility] weight 2022-03-14 13:40:00 189 [lb_av] Comm on [facility] temperature 2022-03-14 13:40:00 97.6 [degF] Com mon [facility] bmi 2022-03-14 13:40:00 35.71 kg/m2 Comm on [facility] oximetry 2022-03-14 13:40:00 100 % Commo n [facility] respiratory rate 2022-03-14 13:40:00 16 /min [facility] blood pressure systolic 2022-03-14 13:40:00 132 mm[Hg] [facility] blood pressure diastolic 2022-03-14 13:40:00 73 mm[Hg] [facility] Systolic blood pressure 2022-01-16 20:40:00 135 mm[Hg] [facility] Diastolic blood pressure 2022-01-16 20:40:00 87 mm[Hg] [facility] Heart rate 2022-01-16 20:40:00 98 /min [facility] Body temperature 2022-01-16 20:40:00 36.5 [facility] Respiratory rate 2022-01-16 20:40:00 16 /min [facility] Body height 2022-01-16 20:40:00 152.4 cm [facility] Body weight 2022-01-16 20:40:00 83.779 kg [facility] BMI 2022-01-16 20:40:00 36.07 kg/m2 [facility] Oxygen saturation in Arterial blood by Pulse oximetry 2022-01-16 20:40:00 99 /min [facility] Systolic blood pressure 2022-01-05 15:50:00 158 mm[Hg] [facility] Diastolic blood pressure 2022-01-05 15:50:00 89 mm[Hg] [facility] Heart rate 2022-01-05 15:50:00 101 /min [facility] Body temperature 2022-01-05 15:50:00 37.06 [facility] Respiratory rate 2022-01-05 15:50:00 18 /min [facility] Body height 2022-01-05 15:50:00 154.9 cm [facility] Body weight 2022-01-05 15:50:00 79.379 kg [facility] BMI 2022-01-05 15:50:00 33.07 kg/m2 [facility] Oxygen saturation in Arterial blood by Pulse oximetry 2022-01-05 15:50:00 100 /min [facility] height 2021-12-13 16:20:00 61 [in_i] Commo n [facility] weight 2021-12-13 16:20:00 170 [lb_av] Comm on [facility] temperature 2021-12-13 16:20:00 98.2 [degF] Com mon [facility] bmi 2021-12-13 16:20:00 32.12 kg/m2 Comm on [facility] blood pressure systolic 2021-12-13 16:20:00 125 mm[Hg] Common [facility] blood pressure diastolic 2021-12-13 16:20:00 74 mm[Hg] [facility] height 2021-09-06 16:30:00 61 [in_i] Commo n [facility] weight 2021-09-06 16:30:00 169 [lb_av] Comm on [facility] temperature 2021-09-06 16:30:00 97 [degF] Comm on [facility] bmi 2021-09-06 16:30:00 31.93 kg/m2 Comm on [facility] blood pressure systolic 2021-09-06 16:30:00 128 mm[Hg] [facility] blood pressure diastolic 2021-09-06 16:30:00 72 mm[Hg] Common [facility] height 2021-06-06 15:50:00 61 [in_i] Commo n [facility] weight 2021-06-06 15:50:00 170 [lb_av] Comm on [facility] temperature 2021-06-06 15:50:00 98 [degF] Comm on [facility] bmi 2021-06-06 15:50:00 32.12 kg/m2 Comm on [facility] blood pressure systolic 2021-06-06 15:50:00 130 mm[Hg] Common [facility] blood pressure diastolic 2021-06-06 15:50:00 70 mm[Hg] [facility] Systolic blood pressure 2021-05-15 20:07:00 140 mm[Hg] [facility] Diastolic blood pressure 2021-05-15 20:07:00 90 mm[Hg] [facility] Heart rate 2021-05-15 20:07:00 105 /min [facility] Body height 2021-05-15 20:07:00 154.9 cm [facility] Body weight 2021-05-15 20:07:00 74.844 kg [facility] BMI 2021-05-15 20:07:00 31.18 kg/m2 [facility] Procedures Procedure Date / Time Performed Performing Clinicia n Source POCT SARS-COV-2 ANTIGEN (BINAX NOW) 2023-11-07 23:53:00 Ledy Liz [facility] POCT MOLECULAR FLU 2023-11-07 23:33:00 Unknown, Attend [facility] POCT MOLECULAR STREP 2023-11-07 23:29:00 Unknown, Atte francisco [facility] CONSENT/REFUSAL FOR DIAGNOSIS AND TREATMENT 2023-10-22 16:32:06 Doctor Unassigned, Donnellson [facility] MAGNESIUM 2023-08-15 18:27:00 Hakan Conti [facility] TROPONIN I 2023-08-15 18:27:[address] [facility] COMP. METABOLIC PANEL (52287) 2023-08-15 18:27:00 Hakan Conti [facility] CBC WITH DIFF 2023-08-15 18:27:00 Sita, K [facility] URINALYSIS 2023-08-15 18:27:00 Hakan Conti [facility] N-TERMINAL PRO-BNP 2023-08-15 18:27:00 Hakan Conti [facility] XR CHEST 1 VW 2023-08-15 18:24:14 Sita, K [facility] CONSENT/REFUSAL FOR DIAGNOSIS AND TREATMENT 2023-08-15 17:06:55 Doctor Unassigned, Donnellson [facility] POCT SARS-COV-2 ANTIGEN (BINAX NOW) 2023-07-01 20:15:00 Natalia Vásquez [facility] POCT MOLECULAR FLU 2023-07-01 20:11:00 Unknown, Attend [facility] POCT MOLECULAR STREP 2023-07-01 20:09:00 Unknown, Atte francisco [facility] ASSIGNMENT OF BENEFITS 2023-07-01 18:30:35 Docto r Unassigned, Donnellson [facility] CONSENT/REFUSAL FOR DIAGNOSIS AND TREATMENT 2023-07-01 17:25:30 Doctor Unassigned, Donnellson [facility] ASSIGNMENT OF BENEFITS 2023-06-25 15:32:57 Docto r Unassigned, Donnellson [facility] POCT SARS-COV-2 ANTIGEN (BINAX NOW) 2023-06-17 22:11:00 Melissa Yancey [facility] POCT SARS-COV-2 ANTIGEN (BINAX NOW) 2023-05-02 22:10:00 Natalia Vásquez [facility] POCT SARS-COV-2 ANTIGEN (BINAX NOW) 2023-04-02 18:54:00 Lv Wolf [facility] CT ABDOMEN PELVIS W CONTRAST 2023-02-15 22:28:42 Hakan Conti [facility] LIPASE 2023-02-15 21:08:00 Hakan Conti [facility] MAGNESIUM 2023-02-15 21:08:00 [facility] TROPONIN I 2023-02-15 21:08:00 Hakan Conti [facility] COMP. METABOLIC PANEL (86328) 2023-02-15 21:08:00 Hakan Conti [facility] CBC WITH DIFF 2023-02-15 21:08:00 Hakan Conti [facility] URINALYSIS 2023-02-15 21:08:00 Hakan Conti [facility] ASSIGNMENT OF BENEFITS 2023-02-15 20:57:48 Racquel r Unassigned, Donnellson [facility] NOTICE OF PRIVACY PRACTICES 2023-02-15 19:28:07 Doctor Unassigned, Donnellson [facility] CONSENT/REFUSAL FOR DIAGNOSIS AND TREATMENT 2023-02-15 19:27:07 Doctor Unassigned, Donnellson [facility] POCT SARS-COV-2 ANTIGEN (BINAX NOW) 2022-12-05 20:09:00 Arcenio Napoles [facility] PATIENT FINANCIAL POLICY 2022-12-05 19:44:23 Doctor Unassigned, Donnellson [facility] ASSIGNMENT OF BENEFITS 2022-05-30 16:28:29 Docto r Unassigned, Donnellson [facility] CT ABDOMEN PELVIS WO CONTRAST 2022-01-05 17:20:35 Gary Gonazlez [facility] XR KUB 2022-01-05 16:21:08 Gary Gonzalez [facility] POCT TEST 2022-01-05 16:08:00 Gary Gonzalez [facility] LIPASE 2022-01-05 16:06:00 Gary Gonzalez [facility] HEPATIC FUNCTION PANEL (58050) (ALB,T.PRO,BILI T,BU/BC,ALT,AST,ALK PHOS) 2022-01-05 16:06:00 [facility] BASIC METABOLIC PANEL (NA, K, CL, CO2, GLUCOSE, BUN, CREATININE, CA) 2022-01-05 16:06:00 [facility] CBC WITH DIFF 2022-01-05 16:06:00 Gary Gonzalez [facility] URINALYSIS 2022-01-05 16:06:00 Gary Gonzalez [facility] CONSENT/REFUSAL FOR DIAGNOSIS AND TREATMENT 2022-01-05 15:43:39 Doctor Unassigned, Donnellson [facility] Encounters Start Date/Time End Date/Time Encounter Type Admission Type Attending [facility] Facility Care Department Encounter ID Source 2023-09-03 09:33:00 Outpatient Higgins, Count includes the [facility] [id number] [facility] 2022-10-03 08:13:00 Outpatient Higgins, Count includes the [facility] [id number] [facility] 2022-07-02 10:13:01 [facility] [id number] [facility] 2022-06-12 09:17:00 Outpatient Higgins, Count includes the [facility] [id number] [facility] 2021-09-20 14:00:52 Outpatient Higgins, Prakash STLMLC STLMLC [id number] [facility] 2021-09-20 13:53:20 Outpatient Higgins, Prakash STLC STLMLC [id number] [facility] 2021-09-20 13:19:51 Outpatient Higgins, Prakash STLC STLMLC [id number] [facility] 2021-09-20 13:14:31 Outpatient Higgins, Prakash STLC STLMLC [id number] [facility] 2021-09-20 12:50:04 Outpatient Higgins, Prakash STLC STLMLC [id number] [facility] 2021-09-20 12:48:36 Outpatient Higgins, Prakash STLC STLC [id number] [facility] 2021-06-26 17:19:[address] [facility] [id number] [facility] 2021-06-26 08:32:[address] [facility] [id number] [facility] 2021-06-26 02:13:[address] [facility] [id number] [facility] 2021-06-25 21:06:[address] [facility] [id number] [facility] 2021-06-25 12:29:[address] [facility] [id number] [facility] 2021-06-25 01:51:[address] [facility] [id number] [facility] 2023-11-07 18:00:00 2023-11-07 19:32:26 Outpatient R CRISTEL VARGAS SHAHNAZ [facility] [id number] [facility] 2023-11-07 18:00:00 2023-11-07 19:32:26 Urgent Care Cristel Vargas Unknown, Attending [facility] 1.2.840.114 350.1.13.10 4.2.7.2.686 [id number] [facility] 2023-10-22 10:39:00 2023-10-22 11:53:00 Emergency X Hakan CONTI [facility] ERT [id number] [facility] 2023-10-22 10:39:00 2023-10-22 11:53:00 Emergency Hakan Conti [facility] 1.2840.114 350.1.13.10 4.2.7.2.686 [id number] [facility] 2023-08-16 00:00:00 2023-08-16 00:00:00 (TEL) STLMLC STLMLC [id number] [facility] 2023-08-15 11:19:00 2023-08-15 14:44:00 Emergency X Hakan CONTI [facility] ERT [id number] [facility] 2023-08-15 11:19:00 2023-08-15 14:44:00 Emergency Hakan Conti [facility] 1.840.114 350.1.13.10 4.2.7.2.686 [id number] [facility] 2023-07-11 00:00:00 2023-07-11 00:00:00 Patient Secure Msg Doctor Unassigned, Donnellson [facility] 1.840.114 350.1.13.10 4.2.7.2.686 [id number] [facility] 2023-07-01 13:20:00 2023-07-01 14:19:25 Outpatient R LV WOLF [facility] [id number] [facility] 2023-07-01 13:20:00 2023-07-01 14:19:25 Urgent Care Lv Wolf Unknown, Attending [facility] 1.840.114 350.1.13.10 4.2.7.2.686 [id number] [facility] 2023-07-01 11:30:00 2023-07-01 13:18:00 Emergency X YANA HAWTHORNE TIMOTHY [facility] ERT [id number] [facility] 2023-07-01 11:30:00 2023-07-01 13:18:00 Emergency Yana Hawthorne [facility] 1.2840.114 350.1.13.10 4.2.7.2.686 [id number] [facility] 2023-06-25 10:40:00 2023-06-25 11:52:[address] [facility] [id number] [facility] 2023-06-25 10:40:00 2023-06-25 11:00:00 Urgent Care Natalia Vásquez Unknown, Attending [facility] 1.840.114 350.1.13.10 4.2.7.2.686 [id number] [facility] 2023-06-25 00:00:00 2023-06-25 00:00:00 Orders Only Doctor Unassigned, Donnellson [facility] 1.2840.114 350.1.13.10 4.2.7.2.686 [id number] [facility] 2023-06-18 00:00:00 2023-06-18 00:00:00 Letter (Out) Etta Solares [facility] 1.20.114 350.1.13.10 4.2.7.2.686 [id number] [facility] 2023-06-17 17:00:00 2023-06-17 17:30:14 Outpatient R MELISSA YANCEY [facility] [id number] [facility] 2023-06-17 17:00:00 2023-06-17 17:30:14 Urgent Care Melissa Yancey Unknown, Attending [facility] 1.2.840.114 350.1.13.10 4.2.7.2.686 [id number] [facility] 2023-06-17 16:45:00 2023-06-17 16:45:00 Outpatient R UNKNOWN, ATTENDING [facility] [id number] [facility] 2023-06-17 00:00:00 2023-06-17 00:00[facility]00 [id number] 2023-05-02 16:40:00 2023-05-02 17:00:00 Urgent Care LouiseandreaJosiasmegan Unknown, Attending [facility] 1.2.840.114 350.1.13.10 4.2.7.2.686 [id number] [facility] 2023-05-02 16:40:00 2023-05-02 16:40:00 Outpatient R NATALIA VÁSQUEZ [facility] [id number] [facility] 2023-05-02 00:00:00 2023-05-02 00:00:00 Letter (Out) Natalia Vásquez [facility] 1.2.840.114 350.1.13.10 4.2.7.2.686 [id number] [facility] 2023-04-02 12:40:00 2023-04-02 14:01:19 Outpatient R LV WOLF [facility] [id number] [facility] 2023-04-02 12:40:00 2023-04-02 14:01:19 Urgent Care Lv Wolf Unknown, Attending [facility] 1.2.840.114 350.1.13.10 4.2.7.2.686 [id number] [facility] 2023-02-15 14:40:00 2023-02-15 21:46:00 Emergency X Hakan CONTI [facility] ERT [id number] [facility] 2023-02-15 14:40:00 2023-02-15 21:46:00 Emergency Hakan Conti Barbara [facility] 1.0.114 350.1.13.10 4.2.7.2.686 [id number] [facility] 2022-12-05 14:40:00 2022-12-05 15:18:01 Outpatient R ARCENIO NAPOLES [facility] [id number] [facility] 2022-12-05 14:40:00 2022-12-05 15:18:01 Urgent Care Arcenio Napoles Unknown, Attending [facility] 1.84.114 350.1.13.10 4.2.7.2.686 [id number] [facility] 2022-12-05 00:00:00 2022-12-05 00:00:00 Orders Only Doctor Unassigned, Donnellson [facility] 1.84.114 350.1.13.10 4.2.7.2.686 [id number] [facility] 2022-07-04 00:00:00 2022-07-04 00:00:00 OFFICE VISIT ESTAB PT LEVEL 4 STLMLC STLMLC [id number] [facility] 2022-05-30 13:00:00 2022-05-30 13:20:00 Urgent Care Melissa Yancey Brittany [facility] 1.840.114 350.1.13.10 4.2.7.2.686 [id number] [facility] 2022-05-30 13:00:00 2022-05-30 13:00:00 Outpatient R MELISSA YANCEY [facility] [id number] [facility] 2022-05-30 00:00:00 2022-05-30 00:00:00 Orders Only Doctor Unassigned, Donnellson [facility] 1.2.840.114 350.1.13.10 4.2.7.2.686 [id number] [facility] 2022-05-03 00:00:00 2022-05-03 00:00:00 (TEL) STLMLC STLMLC [id number] [facility] 2022-03-14 00:00:00 2022-03-14 00:00:00 OFFICE VISIT ESTAB PT LEVEL 4 STLMLC STLMLC [id number] [facility] 2022-03-14 00:00:00 2022-03-14 00:00:00 (TEL) STLMLC STLMLC [id number] [facility] 2022-03-14 00:00:00 2022-03-14 00:00:00 SUB ANNUAL [facility] WELLNESS VISIT STLMLC STLMLC [id number] [facility] 2022-01-16 16:00:00 2022-01-16 16:03:05 Outpatient R NATALIA VÁSQUEZ [facility] [id number] [facility] 2022-01-16 16:00:00 2022-01-16 16:03:05 Urgent Care Natalia Vásquez [facility] 1.2.840.114 350.1.13.10 4.2.7.2.686 [id number] [facility] 2022-01-05 10:54:00 2022-01-05 13:07:00 Emergency X GARY GONZALEZ [facility] ERT [id number] [facility] 2022-01-05 10:54:00 2022-01-05 13:07:00 Emergency Gary Gonzalez [facility] 1.2.840.114 350.1.13.10 4.2.7.2.686 [id number] [facility] 2021-12-28 13:20:00 2021-12-28 13:20:[address] [facility] [id number] [facility] 2021-12-13 00:00:00 2021-12-13 00:00:00 OFFICE VISIT ESTAB PT LEVEL 4 STLMLC STLMLC [id number] [facility] 2021-09-06 00:00:00 2021-09-06 00:00:00 OFFICE VISIT EST PT LEVEL 3 STLMLC STLMLC [id number] [facility] 2021-08-14 15:45:00 2021-08-14 16:00:00 Laboratory Only Only, Ang Db [facility] 1.2.840.114 350.1.13.10 4.2.7.2.686 [id number] [facility] 2021-08-14 15:45:00 2021-08-14 15:54:[address] [facility] [id number] [facility] 2021-08-01 00:00:00 2021-08-01 00:00:00 (TEL) STLMLC STLMLC [id number] [facility] 2021-06-15 00:00:00 2021-06-15 00:00:00 (TEL) STLMLC STLMLC [id number] [facility] 2021-06-12 13:30:00 2021-06-12 13:30:[address] [facility] [id number] [facility] 2021-06-06 00:00:00 2021-06-06 00:00:00 OFFICE VISIT ESTAB PT LEVEL 4 STLMLC STLMLC [id number] [facility] 2021-06-05 13:30:00 2021-06-05 13:30:00 Outpatient R JENNA HIDALGO [facility] [id number] [facility] 2021-05-15 15:01:19 2021-05-15 15:16:19 Office Visit [facility] 1.2.840.114 350.1.13.10 4.2.7.2.686 [id number] [facility] 2021-05-15 15:00:00 2021-05-15 15:00:00 Outpatient R R[facility]Y [facility] [id number] [facility] 2021-05-10 13:00:00 2021-05-10 13:00:00 Outpatient R ROCKY JENNA [facility] [id number] [facility] 2021-04-19 15:25:00 2021-04-19 23:59:00 Hospital Encounter [facility] 1.2.840.114 350.1.13.10 4.2.7.2.686 [id number] [facility] 2021-04-19 15:25:00 2021-04-19 23:59:00 Outpatient R ROCKY [facility] [id number] [facility] 2021-04-19 15:16:01 2021-04-19 17:12:29 Office Visit Josette HidalgoJason Timmons [facility] 1.2.840.114 350.1.13.10 4.2.7.2.686 [id number] [facility] 2021-02-21 00:00:00 2021-02-21 00:00:00 Outpatient STLMLC STLMLC [id number] [facility] 2021-02-21 00:00:00 2021-02-21 00:00:00 Outpatient STLMLC STLMLC [id number] [facility] 2021-02-08 00:00:00 2021-02-08 00:00:00 Outpatient STLMLC STLMLC [id number] [facility] 2021-02-06 00:00:00 2021-02-06 00:00:00 Outpatient STLMLC STLMLC [id number] [facility] 2021-01-20 08:30:00 2021-01-20 08:30:[address] [facility] [id number] [facility] 2021-01-02 00:00:00 2021-01-02 00:00:00 Outpatient STLMLC STLMLC [id number] [facility] 2020-12-21 13:30:00 2020-12-21 13:30:[address] [facility] [id number] [facility] 2020-12-12 00:00:00 2020-12-12 00:00:00 Outpatient STLMLC STLMLC [id number] [facility] 2020-12-12 00:00:00 2020-12-12 00:00:00 Outpatient STLMLC STLMLC [id number] [facility] 2020-12-06 09:33:00 2020-12-06 10:58:00 Emergency Boby Bal [facility] 1..840.114 350.1.13.10 4.2.7.2.686 [id number] 2020-11-29 00:00:00 2020-11-29 00:00:00 Outpatient STLMLC STLMLC [id number] [facility] 2020-11-10 00:00:00 2020-11-10 00:00:00 Patient Outreach Willy Grace [facility] 1..840.114 350.1.13.10 4.2.7.2.686 [id number] 2020-10-22 13:44:00 2020-10-22 16:22:00 Emergency Dionne Sierra Whitney [facility] 1.2.840.114 350.1.13.10 4.2.7.2.686 [id number] 2020-01-07 00:00:00 2020-01-07 00:00:00 Telephone Fidencio Khan [facility] 1.840.114 350.1.13.10 4.2.7.2.686 [id number] 2019-11-03 00:00:00 2019-11-03 00:00:00 Telephone Kaylah Wolff [facility] 1.840.114 350.1.13.10 4.2.7.2.686 [id number] 2019-11-02 15:39:02 2019-11-02 23:59:[address] [facility] [id number] [facility] 2019-11-02 15:30:00 2019-11-02 23:59:00 Hospital Encounter Radiology [facility] 1.840.114 350.1.13.10 4.2.7.2.686 [id number] 2019-11-02 00:00:00 2019-11-02 00:00:00 Orders Only Doctor Unassigned, Donnellson [facility] 1.840.114 350.1.13.10 4.2.7.2.686 [id number] 2019-10-28 15:11:42 2019-10-28 15:59:11 Office Visit Kaylah Wolff [facility] 1.840.114 350.1.13.10 4.2.7.2.686 [id number] 2019-10-28 15:20:00 2019-10-28 15:20:00 Outpatient R KAYLAH WOLFF [facility] [id number] [facility] 2019-10-26 16:50:10 2019-10-26 19:30:00 Emergency X BOBY BAL [facility] ERT [id number] [facility] 2019-05-18 12:49:44 2019-05-18 15:02:00 Emergency X ANDREW MAXWELL [facility] ERT [id number] [facility] Results Test Description Test Time Test Comments Results Result Co [facility] Uue7355-41-07 23:44:58* Test Item Value Reference Range Interpretation Comme nts POCT Molecular FluA (test co de = 86632-4) Negative Negative POCT Molecular FluB (test co de = 54301-7) Negative Negative Lab Interpretation (test cod e = 47126-5) Normal [facility] MOLECULAR FEMGN6008-36-42 23:37:08* Test Item Value Reference Range Interpretation Comme nts POCT Molecular Strep (test c ode = 26502-6) Negative Negative Lab Interpretation (test cod e = 42831-5) [facility] Z8299-39-07 19:05:08* Test Item Value Reference Range Interpretation Comme nts TROPONIN I (test code = 2241665934) 0.005 ng/mL <=0.034 BRITTANY (test code = BRITTANY) [...] of biotin. Lab Interpretation (test code = 81219-3) [facility] Urq-Ezm0752-87-21 19:02:25* Test Item Value Reference Range Interpretation Comme nts NT-proBNP (test code = 76222-6) 21 pg/mL <=125 Lab Interpretation (test cod e = 26272-7) [facility] Arlington[facility]esium2023-12-21 18:53:46* Test Item Value Reference Range Interpretation Comme nts MAGNESIUM (test code = 8858305188) 1.8 mg/dL 1.7-2.4 Lab Interpretation (test cod e = 83431-3) [facility] Metabolic Panel (40034)2023-08-15 18:53:05* Test Item Value Reference Range Interpretation Comme nts NA (test code = 8513184695) 138 mmol/L 135-145 K (test code = 2518522486) 3.8 mmol/L 3.5-5.0 CL (test code = 9133411138) 106 mmol/L 98-108 CO2 TOTAL (test code = 8555962694) 23 mmol/L 23-31 AGAP (test code = 2459122794) 9 2-16 BUN (test code = 2775333449) 14 mg/dL 7-23 GLUCOSE (test code = 9345349187) 75 mg/dL 70-110 CREATININE (test code = 6328660980) 0.74 mg/dL 0.50-1.04 TOTAL BILI (test code = 6288699337) 0.3 mg/dL 0.1-1.1 CALCIUM (test code = 0158893951) 8.9 mg/dL 8.6-10.6 T PROTEIN (test code = 7614421198) 7.1 g/dL 6.3-8.2 ALBUMIN (test code = 3877603237) 4.1 g/dL 3.5-5.0 ALK PHOS (test code = 7481420782) 82 U/L 34-122 ALTv (test code = 1742-6) 39 U/L 5-35 H AST(SGOT) (test code = 7754794242) 33 U/L 13-40 eGFR (test code = 24595-9) 99.9 mL/min/1.73m2 CKD-EPI eGFR (2020). Assuming creatinine has been stable day-to-day for at least three months, the eGFR indicates Category G1 (>= 90 mL/min/1.73 m2) Lab Interpretation (test code = 30046-2) Abnormal [facility] with Fozk2947-87-69 18:45:05* Test Item Value Reference Range Interpretation Comme nts WBC (test code = 6690-2) 6.21 See_Comment [Automated messa ge] The system which generated this result transmitted reference range: 4.30 - 11.10 10*3/?L. The reference range was not used to interpret this result as normal/abnormal. RBC (test code = 789-8) 4.21 See_Comment [Automated messa ge] The system which [...] 33.7 g/dL 31.6-35.1 RDW-SD (test code = 51592-0) 46.5 fL 39.0-49.9 RDW-CV (test code = 788-0) 13.8 % 12.0-15.5 PLT (test code = 777-3) 246 See_Comment [Automated messa ge] The system which generated this result transmitted reference range: 166 - 358 10*3/?L. The reference range was not used to interpret this result as normal/abnormal. MPV (test code = 14500-5) 10.7 fL 9.5-12.9 NRBC/100 WBC (test code = 6966732834) 0.0 See_Comment [Automated me ssage] The system which generated this result transmitted reference range: 0.0 - 10.0 /100 WBCs. The reference range was not used to interpret this result as normal/abnormal. NRBC x10^3 (test code = 3698532112) See_Comment [Automated messa ge] The system which generated this result transmitted reference range: 10*3/?L. The reference range was not used to interpret this result as normal/abnormal. GRAN MAT (NEUT) % (test code = 770-8) 50.9 % IMM GRAN % (test code = 5658469194) 0.50 % LYMPH % (test code = 736-9) 29.5 % MONO % (test code = 5905-5) 11.8 % EOS % (test code = 713-8) 6.0 % BASO % (test code = 706-2) 1.3 % GRAN MAT x10^3(ANC) (test code = 7091720386) 3.17 10*3/uL 1.88-7.09 IMM GRAN x10^3 (test code = 6825998029) 0.03 10*3/uL 0.00-0.06 LYMPH x10^3 (test code = 731-0) 1.83 10*3/uL 1.32-3.29 MONO x10^3 (test code = 742-7) 0.73 10*3/uL 0.33-0.92 EOS x10^3 (test code = 711-2) 0.37 10*3/uL 0.03-0.39 BASO x10^3 (test code = 704-7) 0.08 10*3/uL 0.01-0.07 H Lab Interpretation (test code = 09031-7) [facility] 1 FX5716-69-72 18:27:36HISTORY: Fatigue. TECHNIQUE: Portable AP view of the chest is obtained. Comparison made with10/26/2019 study. FINDINGS: No acute pneumonia. Soft tissue fullness in right cardiophrenicregion is essentially unchanged since the previous study. No pneumothoraxor pleural effusion or pulmonary congestion detected. Cardiac size iswithin upper normal limits. CONCLUSIONS: No signs of acute cardiopulmonary di sease.[facility] MOLECULAR NGBGQ3315-73-16 20:17:15 * Test Item Value Reference Range Interpretation Comme nts POCT Molecular Strep (test c ode = 28397-0) Negative Negative Lab Interpretation (test cod e = 63847-5) Normal [facility] MOLECULAR RSF7485-77-58 20:15:17* Test Item Value Reference Range Interpretation Comme nts POCT Molecular FluB (test co de = 06342-3) Positive Negative A Lab Interpretation (test cod e = 99371-5) Abnormal [facility] SARS-COV-2 ANTIGEN (BINAX NOW)2023-07-01 20:15:00* Test Item Value Reference Range Interpretation Comme nts POCT SARS-COV-2 ANTIGEN (test code = 39825-1) Not Detected Not Detected On board controls acceptable with C Line (test code = 3574) Yes BRITTANY (test code = BRITTANY) accurate developme nt and interpretation of all internal controls Lab Interpretation (test code = 31931-3) Normal [facility] SARS-COV-2 ANTIGEN (BINAX NOW)2023-06-17 22:11:00* Test Item Value Reference Range Interpretation Comme nts POCT SARS-COV-2 ANTIGEN (test code = 05539-9) Not Detected Not Detected On board controls acceptable with C Line (test code = 3574) Yes BRITTANY (test code = BRITTANY) accurate developme nt and interpretation of all internal controls Lab Interpretation (test code = 93684-4) Normal [facility] SARS-COV-2 ANTIGEN (BINAX NOW)2023-06-17 22:11:00* Test Item Value Reference Range Interpretation Comme nts POCT SARS-COV-2 ANTIGEN (test code = 56504-3) Not Detected Not Detected On board controls acceptable with C Line (test code = 3574) Yes BRITTANY (test code = BRITTANY) accurate developme nt and interpretation of all internal controls Lab Interpretation (test code = 18362-0) Normal [facility] SARS-COV-2 ANTIGEN (BINAX NOW)2023-05-02 22:10:00* Test Item Value Reference Range Interpretation Comme nts POCT SARS-COV-2 ANTIGEN (idania t code = 01959-6) Not Detected Not Detected On board controls acceptable with C Line (test code = 3574) Yes [facility] SARS-COV-2 ANTIGEN (BINAX NOW)2023-04-02 18:54:00* Test Item Value Reference Range Interpretation Comme nts POCT SARS-COV-2 ANTIGEN (test code = 17144-6) Not Detected Not Detected On board controls acceptable with C Line (test code = 3574) Yes BRITTANY (test code = BRITTANY) accurate developme nt and interpretation of all internal controls Lab Interpretation (test code = 96434-2) [facility] E1902-80-15 22:50:48* Test Item Value Reference Range Interpretation Comme nts TROPONIN I (test code = 0882914228) 0.000 ng/mL <=0.034 BRITTANY (test code = [...] of biotin. Lab Interpretation (test code = 13265-0) [facility]2023-[facility]-23 22:41:08* Test Item Value Reference Range Interpretation Comme nts MAGNESIUM (test code = 7988534442) 1.9 mg/dL 1.7-2.4 Lab Interpretation (test cod e = 73991-0) [facility] METABOLIC PANEL (18209)2023-02-15 22:41:07* Test Item Value Reference Range Interpretation Comme nts NA (test code = 1079882890) 140 mmol/L 135-145 K (test code = 7361842100) 4.3 mmol/L 3.5-5.0 CL (test code = 2185079312) 105 mmol/L 98-108 CO2 TOTAL (test code = 3441069800) 25 mmol/L 23-31 AGAP (test code = 2233348208) 10 2-16 BUN (test code = 0290561366) 16 mg/dL 7-23 GLUCOSE (test code = 4371810260) 68 mg/dL 70-110 L CREATININE (test code = 1544927638) 0.63 mg/dL 0.50-1.04 TOTAL BILI (test code = 5743929973) 0.5 mg/dL 0.1-1.1 CALCIUM (test code = 9381447616) 9.2 mg/dL 8.6-10.6 T PROTEIN (test code = 3671759357) 7.5 g/dL 6.3-8.2 ALBUMIN (test code = 5129164292) 4.5 g/dL 3.5-5.0 ALK PHOS (test code = 5141533812) 73 U/L 34-122 ALTv (test code = 1742-6) 42 U/L 5-35 H AST(SGOT) (test code = 2195640145) 31 U/L 13-40 eGFR (test code = 8738991230) 101.3 mL/min/1.73m2 BRITTANY (test code = BRITTANY) [...] imaging tests). Lab Interpretation (test code = 40979-8) [facility] 22:40:52* Test Item Value Reference Range Interpretation Comme nts LIPASE (test code = 9109300029) 106 U/L 0-220 Lab Interpretation (test cod e = 43728-9) Normal [facility] WITH LZTQ9530-69-35 22:26:28* Test Item Value Reference Range Interpretation Comme nts WBC (test code = 6690-2) 6.47 See_Comment [Automated messa ge] The system which generated this result transmitted reference range: 4.30 - 11.10 10*3/?L. The reference range was not used to interpret this result as normal/abnormal. RBC (test code = 789-8) 4.70 See_Comment [Automated messa ge] The system which [...] 33.4 g/dL 31.6-35.1 RDW-SD (test code = 65217-4) 42.1 fL 39.0-49.9 RDW-CV (test code = 788-0) 12.7 % 12.0-15.5 PLT (test code = 777-3) 257 See_Comment [Automated messa ge] The system which generated this result transmitted reference range: 166 - 358 10*3/?L. The reference range was not used to interpret this result as normal/abnormal. MPV (test code = 80798-5) 11.1 fL 9.5-12.9 NRBC/100 WBC (test code = 4709508170) 0.0 See_Comment [Automated [employer] ssage] The system which generated this result transmitted reference range: 0.0 - 10.0 /100 WBCs. The reference range was not used to interpret this result as normal/abnormal. NRBC x10^3 (test code = 4743817241) See_Comment [Automated messa ge] The system which generated this result transmitted reference range: 10*3/?L. The reference range was not used to interpret this result as normal/abnormal. GRAN MAT (NEUT) % (test code = 770-8) 52.3 % IMM GRAN % (test code = 5963835119) 0.50 % LYMPH % (test code = 736-9) 32.5 % MONO % (test code = 5905-5) 9.1 % EOS % (test code = 713-8) 4.2 % BASO % (test code = 706-2) 1.4 % GRAN MAT x10^3(ANC) (test code = 4204010699) 3.39 10*3/uL 1.88-7.09 IMM GRAN x10^3 (test code = 5685473370) 0.03 10*3/uL 0.00-0.06 LYMPH x10^3 (test code = 731-0) 2.10 10*3/uL 1.32-3.29 MONO x10^3 (test code = 742-7) 0.59 10*3/uL 0.33-0.92 EOS x10^3 (test code = 711-2) 0.27 10*3/uL 0.03-0.39 BASO x10^3 (test code = 704-7) 0.09 10*3/uL 0.01-0.07 H Lab Interpretation (test code = 90273-5) [facility]OV-2 ANTIGEN (BINAX NOW)2022-12-05 20:09:00* Test Item Value Reference Range Interpretation Comme nts POCT SARS-COV-2 ANTIGEN (idania t code = 53536-8) Not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
[2023-12-01] MEDS ORDERED: FAMOTIDINE 20 MG/2 ML VIAL IV ONE (19:18)
[2023-12-01] MEDS ORDERED: MORPHINE 4 MG/ML SYR ONE (19:18)
[2023-12-01] MEDS ORDERED: ONDANSETRON 4 MG/2 ML VIAL ONE (19:18)
[2023-12-01] MEDS ORDERED: NA CHLORIDE 0.9% 1,000 ML ONE (19:18)
[2023-12-01] MEDS ORDERED: NA CHLORIDE 0.9% 50 ML ONE (19:24)
[2023-12-01] MEDS ORDERED: METOCLOPRAMIDE 10 MG/2mL INJ ONE (19:24)
[2023-12-01 19:29] LABS: Absolute Basophils 0.1 K/uL (0-0.5); Absolute Eosinophils 0.4 K/uL (0-0.5); Absolute Lymphocytes (CBC) 1.8 K/uL (0.7-4.9); Absolute Monocytes 0.7 K/uL (0.1-1.3); Basophils % 1.4 % (0-1.3); Eosinophils % 5.5 % (0-4.4); Hematocrit 40.5 % (36.0-45.0); Hemoglobin 13.8 g/dL (12.0-15.0); Lymphocytes % 25.3 % (15.3-44.8); MCHC 34.1 g/dL (32.0-36.0); MCV 88.2 fL (80-100); MPV 9.2 fL (7.6-11.3); Monocytes % 10.3 % (3.3-12.3); Neutrophils % 57.5 % (41.7-73.7); Nucleated Red Blood Cells % 0.6 % (0-0); Platelets 237 thou/uL (152-406); Red Cell Distribution Width 13.7 % (12.1-15.2)
[2023-12-01 19:34] LABS: Specific Gravity 1.029 (1.005-1.030); Sqamous Epithelial <5 /HPF (None Seen); Urine Bacteria <20 /HPF (<20); Urine Bilirubin NEGATIVE (Negative); Urine Blood 2+ (Negative); Urine Clarity Extremely Turbid (Clear); Urine Color Yellow (Yellow); Urine Culture Reflex Order NOT NEEDED; Urine Glucose NEGATIVE (Negative); Urine Ketones NEGATIVE (Negative); Urine Microscopic Reflex YN ORDER UMIC; Urine Nitrite NEGATIVE (Negative); Urine Protein TRACE (Negative); Urine Urobilinogen Normal (Normal); Urine WBC None Seen /HPF (<5); Urine pH 6.5 (5.0-7.0)
[2023-12-01 19:57] LABS: Albumin 3.5 g/dL (3.4-5.0); Albumin/Globulin Ratio 0.9 (1.1-1.8); Anion Gap 8.7 mEq/L (5.0-15.0); Bilirubin Total 0.4 mg/dL (0.2-1.0); Globulin 3.7 g/dL (2.3-3.5); Potassium 2.7 mEq/L (3.5-5.1); Protein, Total 7.2 g/dL (6.4-8.2)
[2023-12-01] MEDS ORDERED: PROMETHAZINE INJ 25 MG/ML AMP ONE (21:30)
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
[2023-12-01] MEDS ORDERED: POTASSIUM 25 MEQ EFFERV TAB ONE (22:46)
[2023-12-01] MEDS ORDERED: METRONIDAZOLE 500mg IVPB 500 MG/100 ML BAG IV ONE (22:46)
[2023-12-01 22:58] LABS: SARS-CoV-2 Antigen CONTROL BLUE LINE VIS/BG OK; SARS-CoV-2 Antigen Rapid Res Negative (Negative)
--- NOTE | 2023-12-01 23:21 | EDPHYS ---
Physician Documentation [facility] Name: Joy Strauss Age: 48 yrs Sex: Female : 1975 Arrival Date: 12/01/2023 Time: 18:09 Bed 8 Private MD: Ronaldo [facility] ED Physician Norberto Aguirre HPI: 11/30 19:00 This 48 yrs old Female presents to ER via Ambulatory with complaints of Nausea/Vomiting.cp 19:00 The patient presents with abdominal pain in the upper abdomen, in the lower abdomen. cp Onset: The symptoms/episode began/occurred 2 day(s) ago. The symptoms do not radiate. Associated signs and symptoms: Pertinent positives: nausea and vomiting, diarrhea, Pertinent negatives: blood in stools, chest pain, constipation, dysuria, fever, headache, vomiting blood. The symptoms are described as constant. 19:00 Severity of pain: in the emergency department the pain is actually worse moderately. cp Historical: - Allergies: 18:22 NKA; nj1 - PMHx: 18:22 Asthma; Back pain; Chronic pain; Degenerative disc disease; herniated discs; Lupus; RA; nj1 scoliosis; - PSHx: 18:22 Cholecystectomy; nj1 - Immunization history:: Client reports receiving the 2nd dose of the Covid vaccine. - Infectious Disease History:: Denies. - Social history:: Smoking status: Patient denies any tobacco usage or history of. ROS: 19:05 Constitutional: Positive for poor PO intake, Negative for body aches, chills, fever, cp 19:05 Eyes: Negative for injury, pain, redness, and discharge, cp 19:05 ENT: Negative for drainage from ear(s), ear pain, sore throat, difficulty swallowing, difficulty handling secretions, 19:05 Cardiovascular: Negative for chest pain, edema, palpitations, 19:05 Respiratory: Negative for cough, shortness of breath, wheezing, 19:05 Abdomen/GI: Positive for abdominal pain, nausea and vomiting, diarrhea, anorexia, Negative for constipation, hematemesis, black/tarry stool, rectal bleeding, 19:05 Neuro: Negative for altered mental status, dizziness, headache, syncope, weakness, 19:05 All other systems are negative, Exam: 19:15 Head/Face: Normocephalic, atraumatic. cp 19:15 Constitutional: The patient appears in no acute distress, alert, awake, non-diaphoretic, non-toxic, well developed, well nourished, obese, uncomfortable, 19:15 Eyes: Periorbital structures: appear normal, Conjunctiva: normal, no exudate, no injection, Lids and lashes: appear normal, bilaterally, 19:15 ENT: External ear(s): are unremarkable, Nose: is normal, Mouth: Lips: moist, Oral mucosa: pink and intact, moist, Posterior pharynx: Airway: no evidence of obstruction, patent, 19:15 Neck: ROM/movement: is normal, is supple, without pain, no range of motions limitations, 19:15 Chest/axilla: Inspection: normal, 19:15 Cardiovascular: Rate: normal, Rhythm: regular, Edema: is not appreciated, JVD: is not appreciated, 19:15 Respiratory: the patient does not display signs of respiratory distress, Respirations: normal, no use of accessory muscles, no retractions, labored breathing, is not present, Breath sounds: are clear throughout, no decreased breath sounds, no stridor, no wheezing, 19:15 Abdomen/GI: Inspection: abdomen appears normal, Bowel sounds: active, all quadrants, Palpation: soft, in all quadrants, moderate abdominal tenderness, in the upper abdomen and lower abdomen, rebound tenderness, is not appreciated, involuntary guarding, is not appreciated, 19:15 Back: CVA tenderness, is absent, 19:15 Neuro: Orientation: to person, place \T\ time. Mentation: is normal, Motor: moves all fours, strength is normal, Sensation: is normal, Vital Signs: 18:20 BP 137 / 76; Pulse 83; Resp 18; Temp 97.6(TE); Pulse Ox 100% ; Weight 88.45 kg; Height nj1 5 ft. 1 in. ; Pain 8/10; 20:46 BP 137 / 87; Pulse 74; Resp 18; Pulse Ox 100% ; vc1 21:37 BP 146 / 88; Pulse 92; Resp 17; Pulse Ox 99% ; vc1 22:57 BP 134 / 77; Pulse 80; Pulse Ox 98% on R/A; Pain 0/10; tm6 23:45 BP 143 / 84; Pulse 83; Resp 18; Temp 98(TE); Pulse Ox 100% on R/A; Pain 6/10; tm6 18:20 Body Mass Index 36.84 (88.45 kg, 154.94 cm) nj1 18:20 Pain Scale: Adult nj1 22:57 Pain Scale: Adult tm6 23:45 Pain Scale: Adult tm6 MDM: 18:27 Patient medically screened. melinda 21:00 Differential diagnosis: appendicitis, bowel obstruction, non-specific abd pain, cp pancreatitis, Peptic Ulcer Disease, Perf. Duodenal Ulcer, Perf. Gastric Ulcer, Pyelonephritis, Ureterolithiasis, urinary tract infection. 23:20 Data reviewed: vital signs, nurses notes, lab test result(s), radiologic studies, CT cp scan. 23:20 Counseling: I had a detailed discussion with the patient and/or guardian regarding the cp historical points, exam findings, and any diagnostic results supporting the discharge/admit diagnosis, lab results, radiology results, to return to the emergency department if symptoms worsen or persist or if there are any questions or concerns that arise at home. 23:20 Response to treatment: the patient's symptoms have markedly improved after treatment, cp and as a result, I will discharge patient. Special discussion: Based on the patient's Hx, exam, and Dx evaluation, there is no indication for emergent surgery or inpatient Tx. It is understood by the patient/guardian that if the Sx's persist or worsen they need to return immediately for re-evaluation. 11/30 18:54 Order name: CBC with Diff; Complete Time: 19:33 cp 11/30 19:34 Interpretation: Normal except: EOSINOPHIL % 5.5; BASO% 1.4. cp 11/30 18:54 Order name: CMP; Complete Time: 20:01 cp 11/30 20:01 Interpretation: Normal except: K 2.7; GFR 88; AST 14; CA 8.4; GLOB 3.7; A/G 0.9. cp 11/30 18:54 Order name: Lipase; Complete Time: 20:01 cp 04 18:54 Order name: Urinalysis w/ reflexes; Complete Time: 20:01 cp 11/30 21:29 Order name: SARS RAPID; Complete Time: 23:19 cp 11/30 23:19 Interpretation: Reviewed. cp 11/30 21:29 Order name: Influenza Screen (a \T\ B); Complete Time: 23:19 cp 11/30 23:19 Interpretation: Reviewed. cp 11/30 18:54 Order name: CT Abd/Pelvis - PO and IV Contrast; Complete Time: 22:35 cp 11/30 18:54 Order name: IV Saline Lock; Complete Time: 19:15 cp 11/30 18:54 Order name: Labs collected and sent; Complete Time: 19:15 cp Administered Medications: 19:30 CANCELLED (Patient Refused): ondansetron 4 mg IVP once; over 2 minutes vc1 19:30 Drug: metoCLOPramide IVP 10 mg IVP once; over 1 to 2 minutes Route: IVP; Site: right vc1 antecubital; 20:00 Follow up: Response: No adverse reaction; Marked relief of symptoms vc1 19:31 Drug: NS 0.9% IV 1000 ml IV at 1 bolus Per protocol; 1000 mL bolus Route: IV; Rate: 1 vc1 bolus; Site: right antecubital; 19:31 Drug: Famotidine IVP 20 mg IVP once; dilute with 10 mL 0.9% NaCl; give over 2 minutes vc1 Route: IVP; Site: right antecubital; 20:00 Follow up: Response: No adverse reaction; Marked relief of symptoms vc1 19:31 Drug: morphine IVP or IV 4 mg IVP once over 4 mins Route: IVP; Infused Over: 4 mins; vc1 Site: right antecubital; 20:00 Follow up: Response: No adverse reaction; Marked relief of symptoms vc1 21:35 Drug: Promethazine IVP 25 mg IVP once Route: IVP; Site: right antecubital; tm6 21:47 Follow up: Response: No adverse reaction; Marked relief of symptoms vc1 22:56 Drug: metroNIDAZOLE IVPB 500 mg 100 ml IVPB once over 30 mins Volume: 100 ml; Route: tm6 IVPB; Infused Over: 30 mins; Site: right wrist; 22:56 Drug: Potassium PO Effervescent Tablet 50 mEq PO once; dissolve in 4 ounces of water or tm6 juice Route: PO; 22:56 Drug: Potassium PO Effervescent Tablet 25 mEq PO once; dissolve in 4 ounces of water or tm6 juice Route: PO; 23:38 Drug: Ketorolac IVP 15 mg IVP once Route: IVP; Site: right antecubital; tm6 Disposition Summary: 12/01/23 23:21 Discharge Ordered Notes: Location: Home cp Problem: new cp Symptoms: have improved cp Condition: Stable cp Diagnosis - Hypokalemia cp - Nausea with vomiting, unspecified cp - Diarrhea, unspecified cp - Abdominal pain, unspecified cp Followup: cp - With: Jesus Acosta MD - When: 1 week - Reason: Recheck today's complaints Followup: cp - With: Private Physician - When: 2 - 3 days - Reason: Recheck today's complaints Discharge Instructions: - Discharge Summary Sheet cp - Abdominal Pain, Adult cp - Food Choices to Help Relieve Diarrhea, Adult cp - Diarrhea, Adult cp - Nausea and Vomiting, Adult cp Forms: - Medication Reconciliation Form cp - Thank You Letter cp - Antibiotic Education cp - Prescription Opioid Use cp - Patient Portal Instructions cp - Leadership Thank You Letter cp - Work release form tm6 Prescriptions: - Zofran 4 mg Oral Tablet - take 1 tablet ORAL route every 12 hours As needed; 20 tablet; Refills: 0, cp Product Selection Permitted - Cipro 500 mg Oral tablet - take 1 tablet ORAL route every 12 hours for 7 days; 20 tablet; Refills: 0, cp Product Selection Permitted - Metronidazole 500 mg Oral Tablet - take 1 tablet ORAL route every 8 hours; 30 tablet; Refills: 0, Product cp Selection Permitted - dicyclomine 20 mg Oral tablet - take 1 tablet ORAL route 4 times per day; 30 tablet; Refills: 0, Product cp Selection Permitted Signatures: Dispatcher [employer] EDAR Norberto Aguirre MD MD cha Page, Corey, JOHANN PA cp Genoveva Mejia RN RN vc1 Minerva Ni RN RN nj1 Susan Flores RN RN tm6 Corrections: (The following items were deleted from the chart) 18:54 18:54 Abdomen Pelvis W Con+CT.RAD.BRZ ordered. EDAR EDMS 19:30 18:54 Ondansetron IVP 4 mg IVP once; over 2 minutes ordered. cp vc1 19:34 19:34 Abdomen Pelvis W Con+CT.RAD.BRZ ordered. EDAR EDMS 12/01 23:24 11/30 18:20 Constitutional: The patient appears in no acute distress, alert, awake, cp non-diaphoretic, non-toxic, well developed, well nourished, obese, uncomfortable, cp 12/01 22:11/30 18:20 Head/Face: Normocephalic, atraumatic. cp cp 12/01 22:11/30 18:20 Eyes: Periorbital structures: appear normal, Conjunctiva: normal, no cp exudate, no injection, Lids and lashes: appear normal, bilaterally, cp 12/01 22:11/30 18:20 ENT: External ear(s): are unremarkable, Nose: is normal, Mouth: Lips: cp moist, Oral mucosa: pink and intact, moist, Posterior pharynx: Airway: no evidence of obstruction, patent, cp 12/01 22:11/30 18:20 Neck: ROM/movement: is normal, is supple, without pain, no range of motions cp limitations, cp 12/01 22:11/30 18:20 Chest/axilla: Inspection: normal, cp cp 12/01 22:11/30 18:20 Cardiovascular: Rate: normal, Rhythm: regular, Edema: is not appreciated, cp JVD: is not appreciated, cp 12/01 22:11/30 18:20 Respiratory: the patient does not display signs of respiratory distress, cp Respirations: normal, no use of accessory muscles, no retractions, labored breathing, is not present, Breath sounds: are clear throughout, no decreased breath sounds, no stridor, no wheezing, cp 12/01 22:11/30 18:20 Abdomen/GI: Inspection: abdomen appears normal, Bowel sounds: active, all cp quadrants, Palpation: soft, in all quadrants, moderate abdominal tenderness, in the upper abdomen and lower abdomen, rebound tenderness, is not appreciated, involuntary guarding, is not appreciated, cp 12/01 22:11/30 18:20 Back: CVA tenderness, is absent, cp cp 12/01 22:11/30 18:20 Neuro: Orientation: to person, place \T\ time. Mentation: is normal, Motor: cp moves all fours, strength is normal, Sensation: is normal, cp
--- NOTE | 2023-12-01 23:21 | ER ---
Nurse's Notes [facility] Name: Joy Strauss Age: 48 yrs Sex: Female : 1975 Arrival Date: 12/01/2023 Time: 18:09 Bed 8 Private MD: Prakash Higgins Diagnosis: Hypokalemia;Nausea with vomiting, unspecified;Diarrhea, unspecified;Abdominal pain, unspecified Presentation: 11/30 18:20 Chief complaint: Patient states: Abdominal pain for 2 days, nauseous, vomiting, nj1 diarrhea. Unable to keep anything down. Coronavirus screen: Vaccine status: Patient reports receiving the 2nd dose of the covid vaccine. Ebola Screen: Patient denies travel to an Ebola-affected area in the 21 days before illness onset. Initial Sepsis Screen: Does the patient meet any 2 criteria? No. Patient's initial sepsis screen is negative. Does the patient have a suspected source of infection? No. Patient's initial sepsis screen is negative. Risk Assessment: Do you want to hurt yourself or someone else? Patient reports no desire to harm self or others. Onset of symptoms was November 30, 2023. 18:20 Method Of Arrival: Ambulatory [facility] 18:20 Acuity: FÉLIX 3 nj1 Triage Assessment: 18:23 General: Appears in no apparent distress. uncomfortable, Behavior is calm, cooperative, nj1 appropriate for age. Pain: Complains of pain in abdomen Pain currently is 8 out of 10 on a pain scale. GI: Reports lower abdominal pain, upper abdominal pain, nausea. Historical: - Allergies: 18:22 NKA; nj1 - PMHx: 18:22 Asthma; Back pain; Chronic pain; Degenerative disc disease; herniated discs; Lupus; RA; nj1 scoliosis; - PSHx: 18:22 Cholecystectomy; nj1 - Immunization history:: Client reports receiving the 2nd dose of the Covid vaccine. - Infectious Disease History:: Denies. - Social history:: Smoking status: Patient denies any tobacco usage or history of. Screenin:13 [facility] ED Fall Risk Assessment (Adult) History of falling in the last 3 months, vc1 including since admission No falls in past 3 months (0 pts) Confusion or Disorientation No (0 pts) Intoxicated or Sedated No (0 pts) Impaired Gait No (0 pts) Mobility Assist Device Used No (0 pt) Altered Elimination No (0 pt) Score/Fall Risk Level 0 - 2 = Low Risk Oriented to surroundings, Maintained a safe environment, Educated pt \T\ family on fall prevention, incl call for assistance when getting out of bed. Abuse screen: Denies threats or abuse. Nutritional screening: No deficits noted. Tuberculosis screening: No symptoms or risk factors identified. Assessment: 19:00 General: Appears in no apparent distress. uncomfortable, ill, Behavior is calm, vc1 cooperative, appropriate for age. Pain: Complains of pain in umbilical area and left lower quadrant Pain does not radiate. Pain currently is 8 out of 10 on a pain scale. Quality of pain is described as sharp, Pain began suddenly. Neuro: Level of Consciousness is awake, alert, obeys commands, Oriented to person, place, time, situation, Appropriate for age. Cardiovascular: Capillary refill < 3 seconds Patient's skin is warm and dry. Respiratory: Airway is patent Respiratory effort is even, unlabored, Respiratory pattern is regular, symmetrical. GI: Abdomen is round non-distended, Reports lower abdominal pain, epigastric pain, nausea, vomiting. : No deficits noted. No signs and/or symptoms were reported regarding the genitourinary system. EENT: No deficits noted. No signs and/or symptoms were reported regarding the EENT system. Derm: Skin is intact, is healthy with good turgor, Skin is pink, warm \T\ dry. Skin temperature is warm. Musculoskeletal: No deficits noted. No signs and/or symptoms reported regarding the musculoskeletal system. Circulation, motion, and sensation intact. Range of motion: intact in all extremities. 20:00 Reassessment: Patient appears in no apparent distress at this time. No changes from vc1 previously documented assessment. Patient and/or family updated on plan of care and expected duration. Pain level reassessed. Patient is alert, oriented x 3, equal unlabored respirations, skin warm/dry/pink. 21:00 Reassessment: Patient appears in no apparent distress at this time. No changes from vc1 previously documented assessment. Patient and/or family updated on plan of care and expected duration. Pain level reassessed. Patient is alert, oriented x 3, equal unlabored respirations, skin warm/dry/pink. 21:54 Reassessment: Patient appears in no apparent distress at this time. No changes from vc1 previously documented assessment. Patient and/or family updated on plan of care and expected duration. Pain level reassessed. Patient is alert, oriented x 3, equal unlabored respirations, skin warm/dry/pink. 22:57 Reassessment: Patient and/or family updated on plan of care and expected duration. Pain tm6 level reassessed. Patient is alert, oriented x 3, equal unlabored respirations, skin warm/dry/pink. 23:45 Reassessment: Patient and/or family updated on plan of care and expected duration. Pain tm6 level reassessed. Patient is alert, oriented x 3, equal unlabored respirations, skin warm/dry/pink. Vital Signs: 18:20 BP 137 / 76; Pulse 83; Resp 18; Temp 97.6(TE); Pulse Ox 100% ; Weight 88.45 kg; Height nj1 5 ft. 1 in. ; Pain 8/10; 20:46 BP 137 / 87; Pulse 74; Resp 18; Pulse Ox 100% ; vc1 21:37 BP 146 / 88; Pulse 92; Resp 17; Pulse Ox 99% ; vc1 22:57 BP 134 / 77; Pulse 80; Pulse Ox 98% on R/A; Pain 0/10; tm6 23:45 BP 143 / 84; Pulse 83; Resp 18; Temp 98(TE); Pulse Ox 100% on R/A; Pain 6/10; tm6 18:20 Body Mass Index 36.84 (88.45 kg, 154.94 cm) nj1 18:20 Pain Scale: Adult nj1 22:57 Pain Scale: Adult tm6 23:45 Pain Scale: Adult tm6 ED Course: 18:11 Patient arrived in ED. mr 18:12 Prakash Higgins, is Private Physician. mr 18:12 [facility] cp 18:12 Norberto Aguirre MD is Attending Physician. cp 18:22 Triage completed. nj1 18:22 Arm band placed on left wrist. nj1 18:22 Patient has correct armband on for positive identification. Placed in gown. Bed in low tm6 position. Call light in reach. Side rails up X2. Client placed on continuous cardiac and pulse oximetry monitoring. NIBP monitoring applied. Pulse ox on. NIBP on. Door closed. Noise minimized. Warm blanket given. 19:13 Calcote, Genoveva, RN is Primary Nurse. vc1 19:15 Initial lab(s) drawn, by me, sent to lab. Urine collected: clean catch specimen, clear. vc1 Inserted saline lock: 22 gauge in right antecubital area, using aseptic technique. Blood collected. 21:36 Influenza Screen (a \T\ B) Sent. tm6 21:36 SARS RAPID Sent. tm6 22:11 CT Abd/Pelvis - PO and IV Contrast In Process Unspecified. EDMS 23:20 Jesus Acosta MD is Referral Physician. cp 23:44 Provided Education on: use of medications. tm6 23:45 No provider procedures requiring assistance completed. IV discontinued, intact, tm6 bleeding controlled, No redness/swelling at site. Pressure dressing applied. Administered Medications: 19:30 CANCELLED (Patient Refused): ondansetron 4 mg IVP once; over 2 minutes vc1 19:30 Drug: metoCLOPramide IVP 10 mg IVP once; over 1 to 2 minutes Route: IVP; Site: right vc1 antecubital; 20:00 Follow up: Response: No adverse reaction; Marked relief of symptoms vc1 19:31 Drug: NS 0.9% IV 1000 ml IV at 1 bolus Per protocol; 1000 mL bolus Route: IV; Rate: 1 vc1 bolus; Site: right antecubital; 19:31 Drug: Famotidine IVP 20 mg IVP once; dilute with 10 mL 0.9% NaCl; give over 2 minutes vc1 Route: IVP; Site: right antecubital; 20:00 Follow up: Response: No adverse reaction; Marked relief of symptoms vc1 19:31 Drug: morphine IVP or IV 4 mg IVP once over 4 mins Route: IVP; Infused Over: 4 mins; vc1 Site: right antecubital; 20:00 Follow up: Response: No adverse reaction; Marked relief of symptoms vc1 21:35 Drug: Promethazine IVP 25 mg IVP once Route: IVP; Site: right antecubital; tm6 21:47 Follow up: Response: No adverse reaction; Marked relief of symptoms vc1 22:56 Drug: metroNIDAZOLE IVPB 500 mg 100 ml IVPB once over 30 mins Volume: 100 ml; Route: tm6 IVPB; Infused Over: 30 mins; Site: right wrist; 22:56 Drug: Potassium PO Effervescent Tablet 50 mEq PO once; dissolve in 4 ounces of water or tm6 juice Route: PO; 22:56 Drug: Potassium PO Effervescent Tablet 25 mEq PO once; dissolve in 4 ounces of water or tm6 juice Route: PO; 23:38 Drug: Ketorolac IVP 15 mg IVP once Route: IVP; Site: right antecubital; tm6 Medication: 19:16 VIS not applicable for this client. vc1 Outcome: 23:21 Discharge ordered by . cp 23:45 Discharged to home ambulatory, tm6 23:45 Condition: stable 23:45 Discharge instructions given to patient, Instructed on discharge instructions, follow up and referral plans. medication usage, Demonstrated understanding of instructions, follow-up care, medications, Prescriptions given X 4, 23:49 Patient left the ED. tm6 Signatures: Dispatcher [employer] EDMS Jennifer Ren, Reg Reg mr Norberto Monsalve, Genoveva Valdez cp, RN RN vc1 Minerva Ni RN RN nj1 Susan Flores RN RN tm6
[2023-12-01] MEDS ORDERED: KETOROLAC 30 MG/ML INJ ONE (23:36)
[2023-12-02 06:31] VITALS: TEMP 97.6
[2023-12-02 07:07] VITALS: BP 134/77; O2SAT 98
== END 2023-12-01 23:49 | disposition home or self-care (01) ==
LOC: ER 18:09
DX: E87.6 Hypokalemia (principal); R19.7 Diarrhea, unspecified; R10.9 Unspecified abdominal pain; Z11.52 Encounter for screening for COVID-19
CPT/HCPCS: 85025; 81001; 36415; 83690; 80053; 87804 ×2; 74177; 99284; 87811; Q9967; J2550; J2765; J7030; J2405

== ENCOUNTER 2023-12-09 12:51 | Emergency (ER) | payer OTHER ==
--- OUTSIDE RECORDS SUMMARY | 2023-12-09 12:55 | XMS REPORT | Continuity of Care Document ---
Author Name Unknown Address [address] [facility] [address] [place] [address] [facility] Address [address] [facility] [address] [place] [address] Care Team Providers Care Senior Marketing Coordinator Name Role Phone Angel Higginsantonio Yuan Primary Care Physician [phone] Angel Higginsantonio Yuan Attending Clinician Unavailable CRISTEL VARGAS Attending Clinician Unavailable CRISTEL VARGAS Attending Clinician Unavailable Unknown, Attending Attending Clinician Unavailab Hakan Colindres Attending Clinician Unavailable Hakan Guzman Attending Clinician [phone] Doctor Unassigned, [place] Attending Clinician U navailable LV WOLF Attending Clinician Unavailable Lv Elizalde Attending Clinician [phone] YANA HAWTHORNE Attending Clinician Unavailable YANA HAWTHORNE Attending Clinician Unavailable NATALIA VÁSQUEZ Attending Clinician Unavailable Natalia Vega Attending Clinician [phone] Etta Solares RN Attending Clinician Unavailable MELISSA YANCEY Attending Clinician Unavailable Melissa Yancey MD Attending Clinician [phone] UNKNOWN, ATTENDING Attending Clinician Unavailab ARCENIO Martínez Attending Clinician Unavailable Arcenio Napoles PA-C Attending Clinician [phone] Bill LOGISTICS ASSOCIATE, Fidencio Attending Clinician [phone] Green LOGISTICS ASSOCIATE, Mary Kay Attending Clinician [phone] GARY GONZALEZ Attending Clinician Unavailable Carlos LOGISTICS ASSOCIATE, Gary Attending Clinician [phone] Only, Ang Db Test Attending Clinician UnavailFIDENCIO Pollard Attending Clinician UnavailJENNA Pryor Attending Clinician Unavailable Jenna Garcia Attending Clinician [phone] Jason Perkins MD Attending Clinician [phone] CARLOS ANDERSON Attending Clinician Unavailable Boby Bal DO Attending Clinician [phone] Willy Grace DO Attending Clinician [phone] Dionne Sierra NP Attending Clinician [phone] Tori Shaw DO Attending Clinician [phone] Kaylah Pool Attending Clinician [phone] RADIOLOGY Attending Clinician Unavailable Radiology Attending Clinician Unavailable KAYLAH WOLFF Attending Clinician Unavailable BOBY BAL Attending Clinician Unavailable ANDREW MAXWELL Attending Clinician Unavailable Hakan CONTI Admitting Clinician Unavailable GARY GONZALEZ Admitting Clinician Unavailable ADELFO MONTEIRO Admitting Clinician Unavailable BOBY BAL Admitting Clinician Unavailable Payers Payer Name Policy Type Policy Number Effective Date Expirati on Date Source MEDICARE PART A \\T\\ [id number] 2006 00:00:00 [facility] MEDICAID [id number] 2016 00:00:00 MEDICAID [facility] [id number] 2011 00:00:00 MEDICAID [id number] 2020 00:00:00 [facility] MEDICARE [facility] [id number] 2006 00:00:00 [facility] MEDICAID [id number] 2020 00:00:00 [facility] MEDICARE [place] [id number] 2006 00:00:00 [facility] JODY GUILLORY PLS O [id number] 2019 00:00:00 2020 00:00:00 Problems Condition Name Condition Details Condition Category Status Onset Date Resolution Date Last Treatment Date Treating Clinician Comments Source Right ankle pain Right ankle pain Disease Active 05-15 00:00: 00 [facility] Encounter for sterilizat ion Encounter for sterilizat ion Disease Active 01-16 00:00: 00 [facility] Lupus Lupus Problem [facility] [id number] Body mass index [BMI] 35.0-35.9, adult Problem [facility] [id number] Morbid (severe) obesity due to excess calories Problem [facility] [id number] Uncomplica olivia opioid dependence Problem [facility] [id number] Current moderate episode of major depressive disorder without prior episode Problem [facility] [id number] Bipolar affective disorder, currently depressed, moderate Problem [facility] [id number] Primary insomnia Problem [facility] [id number] SPENCER (generaliz ed anxiety disorder) Problem [facility] [id number] Ulcerative colitis with complicati on, unspecifie d location Problem [facility] [id number] Chronic fatigue Problem [facility] [id number] Gastroesop hageal reflux disease without esophagiti s Problem [facility] [id number] Migraine without aura and without status migrainosu s, not intractabl e Problem [facility] 20134130 Other chronic pain Problem [facility] [id number] DDD (degenerat bandar disc disease), lumbar Problem [facility] 37988931 Vitamin D deficiency Problem [facility] [id number] Systemic lupus erythemato heather, unspecifie d SLE type, unspecifie d organ involvemen t status Problem [facility] Allergies, Adverse Reactions, Alerts Allergy Name Allergy Type Status Severity Reaction(s) Onset Date Inactive Date Treating Clinician Comments Source NO KNOWN ALLERGIE S Drug Class Active [facility] Social History Social Habit Start Date Stop Date Quantity Comments Source History of Tobacco Use [facility] Sex Assigned At [facility] Gender identity [facility] intake 2023-11-07 00:00:00 2023-11-07 00:00:00 0 /d [facility] Exposure to SARS-CoV-2 (event) 2022-11-25 00:00:00 2022-12-05 14:43:00 Not sure [facility] History of Social function 2022-12-05 00:00:00 2022-12-05 00:00:00 [facility] Tobacco use and exposure 2016-05-15 00:00:00 2016-05-15 00:00:00 Smokeless tobacco non-user [facility] Smoking Status Start Date Stop Date Source Never smoked tobacco [facility] Medications Ordered Medication Name Filled Medication Name Start Date Stop Date Current Medication? Ordering Clinician Indication Dosage Frequency Signature (SIG) Comments Components Source ondansetron 4 mg disintegrat ing tablet 11-06 00:00: 00 11-10 04:59 :00 Yes [id number] 8mg Take 2 tablets by mouth every 8 (eight) hours as needed for Nausea and Vomiting (N/V) for up to 3 days. [facility] methylpredn isolone sod succ (SOLU-MEDRO L) injection 125 mg 10-22 18:15: 00 10-22 17:29 :00 No 125mg 125 mg, Intramuscu lar, ONCE, 1 dose, On Sat10/22/23 at 1215, TOY [facility] predniSONE 20 mg tablet 10-22 00:00: 00 Yes [id number] 1 PO BID x 4 days [facility] methylPREDN ISolone 4 mg tablets 2022-08 00:00: 00 Yes [id number] Take by mouth SEE-INSTRU CTIONS. follow package directions [facility] methylpredn isolone sod succ (SOLU-MEDRO L) injection 125 mg 2022-08- 20:30: 00 08-15 20:02 :00 No 125mg 125 mg, Intravenou s, ONCE, 1 dose, On Portia 08/15/23 at 1430, Routine [facility] oseltamivir (TAMIFLU) 75 mg capsule 2022-08 00:00: 00 07-07 05:59 :00 No [id number] 75mg Take 1 capsule by mouth in the morning and 1 capsule in the evening. Do all this for 5 days. [facility] cephALEXin (KEFLEX) 500 mg capsule 2022-08 00:00: 00 07-06 05:59 :00 No [id number] 500mg Take 1 capsule by mouth 4 (four) times daily for 10 days. [facility] belimumab (BENLYSTA) 200 mg/mL AtIn 2022-08 17:41: 24 Yes INJECT 200MG SUBCUTANEO USLY ONCE A WEEK [facility] ondansetron 4 mg disintegrat ing tablet 2022-08 00:00: 00 11-06 00:00 :00 No [id number] 4mg Take 1 tablet by mouth every 12 (twelve) hours as needed for Nausea and Vomiting (N/V). [facility] dicyclomine 10 mg capsule 05-02 00:00: 00 05-10 04:59 :00 No [id number] 10mg Take 1 capsule by mouth 4 (four) times daily for 7 days. [facility] ondansetron 4 mg disintegrat ing tablet 05-02 00:00: 00 05-08 04:59 :00 No [id number] 4mg Take 1 tablet by mouth every 8 (eight) hours as needed for Nausea and Vomiting (N/V) for up to 5 days. [facility] proMETHazin e (PHENERGAN) tablet 25 mg 02-16 00:45: 00 02-16 00:31 :00 No 25mg 25 mg, Oral, ONCE, 1 dose, On Sat02/15/23 at 1945, TOY [facility] iopamidol (ISOVUE 370-500 mL) injection 80 mL 02-15 23:15: 00 02-15 23:15 :00 No [id number] 80mL 80 mL, Intravenou s, ONCE, 1 dose, On Sat02/15/23 at 1815, Routine [facility] NaCl 0.9% (NS) bolus infusion 1,000 mL 02-15 22:45: 00 02-16 01:36 :00 No 1000mL at 999 mL/hr, 1,000 mL, IV Infusion, ONCE, 1 dose, On Sat02/15/23 at 1745, STAT [facility] proMETHazin e 25 mg tablet 02-15 00:00: 00 04-02 00:00 :00 No [id number] 25mg Take 1 tablet by mouth every 4 (four) hours as needed for Nausea and Vomiting (N/V). [facility] dicyclomine 10 mg capsule 12 00:00: 00 04-02 00:00 :00 No [id number] 10mg Take 1 capsule by mouth 4 (four) times daily. [facility] Kenalog (Triamcinol one) Kenalog (Triamcinol one) 2021-08 00:00: 00 No 40mg [facility] Kenalog (Triamcinol one) Kenalog (Triamcinol one) 2021-08 00:00: 00 No 40mg [facility] Kenalog (Triamcinol one) Kenalog (Triamcinol one) 2021-08 00:00: 00 No 40mg [facility] hydroxychlo roquine sulfate (PLAQUENIL ORAL) 2021-08 005 11:33: 32 Yes Take by mouth. [facility] proMETHazin e 25 mg tablet 2021-08 005 00:00: 00 04-02 00:00 :00 No [id number] 25mg Take 1 tablet by mouth every 6 (six) hours as needed for Nausea and Vomiting (N/V). [facility] proMETHazin e 25 mg tablet 01-16 00:00: 00 01-22 04:59 :00 No [id number] 25mg Take 1 tablet by mouth every 6 (six) hours for 5 days. [facility] ondansetron (ZOFRAN (PF)) injection 4 mg 01-05 17:00: 00 01-05 16:46 :00 No 4mg 4 mg, Slow IV Push, ONCE, 1 dose, On Sat01/05/22 at 1200, [facility] ketorolac tromethamin e (TORADOL) injection 15 mg 01-05 17:00: 01-05 17:00 :00 No 15mg 15 mg, Slow IV Push, ONCE, 1 dose, On Sat01/05/22 at 1200, [facility] docusate 100 mg capsule 01-05 00:00: 00 02-05 04:59 :00 No [id number] 100mg Take 1 capsule by mouth daily for 30 days. [facility] polyethylen e glycol 3350 (MIRALAX) 17 gram/dose powder 01-05 00:00: 00 01-11 04:59 :00 No [id number] 17g Take 17 g by mouth 2 (two) times daily for 5 days. [facility] sennosides (SENOKOT) 8.6 mg tablet 01-05 00:00: 00 01-11 04:59 :00 No [id number] 8.6mg Take 1 tablet by mouth daily for 5 days. [facility] hydroxychlo roquine sulfate (PLAQUENIL ORAL) 03-09 19:46: 21 Yes Take by mouth. [facility] proMETHazin e 25 mg suppository 03-09 00:00: 00 04-02 00:00 :00 No [id number] 25mg Insert 1 Suppositor y into rectum every 4 (four) hours as needed for Nausea and Vomiting (N/V). [facility] Omeprazole 20 MG Omeprazole 20 MG 02-09 00:00: 00 No QD Omeprazole 20 MG naproxen sodium (ANAPROX DS) 550 mg tablet 12-06 00:00: 00 04-02 00:00 :00 No [id number] 550mg Take 1 tablet by mouth 2 (two) times daily with meals. [facility] methylPREDN ISolone (MEDROL, HERMAN,) 4 mg tablets 12-06 00:00: 00 04-02 00:00 :00 No [id number] Take by mouth SEE-INSTRU CTIONS. follow package directions [facility] topiramate 100 mg tablet 10-27 15:41: 01 Yes topiramate 100 mg tablet Take 1 tablet every day by oral route in the morning for 28 days. [facility] HYDROcodone -acetaminop hen (NORCO 5) 5-325 mg tablet 2018-08 13:34: 10 Yes 1{tbl} Take 1 tablet by mouth 2 (two) times daily. [facility] tiZANidine 4 mg capsule 2018-08 13:34: 10 Yes 4mg Take 4 mg by mouth 3 (three) times daily. [facility] phentermine 37.5 mg tablet 2018-08 13:34: 10 Yes 37.5mg Take 37.5 mg by mouth daily with breakfast. [facility] zolpidem (AMBIEN) 10 mg tablet 2018-08 13:34: 10 Yes 10mg Take 10 mg by mouth at bedtime as needed for Insomnia. [facility] SUMAtriptan (IMITREX) 50 mg tablet 2018-08 13:34: 10 Yes Imitrex 50 mg tablet Take 1 tablet every day by oral route as needed for 30 days. [facility] IBUPROFEN 400 mg tablet 11-09 00:00: 00 12-05 00:00 :00 No 400mg Take 1 tablet by mouth every 6 (six) hours as needed for Pain (scale 1-3). [facility] omeprazole (PRILOSEC) 40 mg capsule 01-09 00:00: 00 12-05 00:00 :00 No 40mg Take 1 capsule by mouth daily. [facility] Vraylar 6 MG Vraylar 6 MG [...] Adacel (Tdap) Adacel (Tdap) 2020-08-25 15:49:00 Completed [facility] Adacel (Tdap) Adacel (Tdap) 2020-08-25 15:49:00 Completed [facility] Adacel (Tdap) Adacel (Tdap) 2020-08-25 15:49:[address] [facility] Adacel (Tdap) Adacel (Tdap) 2020-08-25 15:49:[address] [facility] Adacel (Tdap) Adacel (Tdap) 2020-08-25 15:49:00 Completed [facility] Adacel (Tdap) Adacel (Tdap) 2020-08-25 15:49:00 Completed [facility] Adacel (Tdap) Adacel (Tdap) 2020-08-25 15:49:00 Completed [facility] Adacel (Tdap) Adacel (Tdap) 2020-08-25 15:49:00 Completed [facility] Adacel (Tdap) Adacel (Tdap) 2020-08-25 15:49:00 Completed [facility] Adacel (Tdap) Adacel (Tdap) 2020-08-25 15:49:00 Completed [facility] TDAP 2019-01-26 00:00:00 Completed [facility] TDAP 2019-01-26 00:00:00 Completed [facility] TDAP 2019-01-26 00:00:00 Completed [facility] TDAP 2019-01-26 00:00:00 Completed [facility] TDAP 2019-01-26 00:00:00 Completed [facility] TDAP 2019-01-26 00:00:00 Completed [facility] TDAP 2019-01-26 00:00:00 Completed [facility] TDAP 2019-01-26 00:00:00 Completed [facility] TDAP 2019-01-26 00:00:00 Completed [facility] TDAP 2019-01-26 00:00:00 Completed [facility] TDAP 2019-01-26 00:00:00 Completed [facility] Adacel (Tdap) Adacel (Tdap) Unknown Completed [facility] Adacel (Tdap) Adacel (Tdap) Unknown Completed [facility] TDAP Unknown Completed [facility] TDAP Unknown Completed [facility] TDAP Unknown Completed [facility] TDAP Unknown Completed [facility] TDAP Unknown Completed [facility] TDAP Unknown Completed [facility] TDAP Unknown Completed [facility] TDAP Unknown Completed [facility] TDAP Unknown Completed [facility] TDAP Unknown Completed [facility] TDAP Unknown Completed [facility] TDAP Unknown Completed [facility] Vital Signs Vital Name Observation Time Observation Value Comments S ource Systolic blood pressure 2023-11-07 23:23:00 113 mm[Hg] [facility] Diastolic blood pressure 2023-11-07 23:23:00 72 mm[Hg] [facility] Heart rate 2023-11-07 23:22:00 100 /[facility] 2023-11-07 23:22:00 36.94 [facility] Respiratory rate 2023-11-07 23:22:00 20 /min [facility] Body height 2023-11-07 23:22:00 154.9 cm [facility] Body weight 2023-11-07 23:22:00 89.495 kg [facility] BMI 2023-11-07 23:22:00 37.28 kg/m2 [facility] Oxygen saturation in Arterial blood by Pulse oximetry 2023-11-07 23:22:00 99 /min [facility] Systolic blood pressure 2023-10-22 16:38:00 144 mm[Hg] [facility] Diastolic blood pressure 2023-10-22 16:38:00 93 mm[Hg] [facility] Heart rate 2023-10-22 16:38:00 110 /min [facility] Body temperature 2023-10-22 16:38:00 36.67 [facility] Respiratory rate 2023-10-22 16:38:00 22 /min [facility] Body weight 2023-10-22 16:38:00 83.915 kg [facility] BMI 2023-10-22 16:38:00 36.13 kg/m2 [facility] Oxygen saturation in Arterial blood by Pulse oximetry 2023-10-22 16:38:00 100 /min [facility] Systolic blood pressure 2023-08-15 20:02:00 121 mm[Hg] [facility] Diastolic blood pressure 2023-08-15 20:02:00 80 mm[Hg] [facility] Heart rate 2023-08-15 20:02:00 89 /min [facility] Body temperature 2023-08-15 20:02:00 36.89 [facility] Respiratory rate 2023-08-15 20:02:00 13 /min [facility] Oxygen saturation in Arterial blood by Pulse oximetry 2023-08-15 19:02:00 100 /min [facility] Body height 2023-08-15 17:17:00 152.4 cm [facility] Body weight 2023-08-15 17:17:00 83.915 kg [facility] BMI 2023-08-15 17:17:00 36.13 kg/m2 [facility] Systolic blood pressure 2023-07-01 20:04:00 119 mm[Hg] [facility] Diastolic blood pressure 2023-07-01 20:04:00 80 mm[Hg] [facility] Heart rate 2023-07-01 20:04:00 96 /min [facility] Body temperature 2023-07-01 20:04:00 37.28 [facility] Respiratory rate 2023-07-01 20:04:00 17 /min [facility] Body height 2023-07-01 20:04:00 152.4 cm [facility] Body weight 2023-07-01 20:04:00 89.767 kg [facility] BMI 2023-07-01 20:04:00 38.65 kg/m2 [facility] Oxygen saturation in Arterial blood by Pulse oximetry 2023-07-01 20:04:00 99 /min [facility] Systolic blood pressure 2023-07-01 17:29:00 128 mm[Hg] [facility] Diastolic blood pressure 2023-07-01 17:29:00 99 mm[Hg] [facility] Heart rate 2023-07-01 17:29:00 105 /min [facility] Body temperature 2023-07-01 17:29:00 37.11 [facility] Respiratory rate 2023-07-01 17:29:00 16 /min [facility] Body height 2023-07-01 17:29:00 152.4 cm [facility] Body weight 2023-07-01 17:29:00 87.091 kg [facility] BMI 2023-07-01 17:29:00 37.50 kg/m2 [facility] Oxygen saturation in Arterial blood by Pulse oximetry 2023-07-01 17:29:00 100 /min [facility] Systolic blood pressure 2023-06-25 16:01:00 138 mm[Hg] [facility] Diastolic blood pressure 2023-06-25 16:01:00 83 mm[Hg] [facility] Heart rate 2023-06-25 16:01:00 108 /min [facility] Body temperature 2023-06-25 16:01:00 36.44 [facility] Respiratory rate 2023-06-25 16:01:00 20 /min [facility] Body height 2023-06-25 16:01:00 152.4 cm [facility] Body weight 2023-06-25 16:01:00 91.343 kg [facility] BMI 2023-06-25 16:01:00 39.33 kg/m2 [facility] Oxygen saturation in Arterial blood by Pulse oximetry 2023-06-25 16:01:00 97 /min [facility] Systolic blood pressure 2023-06-17 22:06:00 133 mm[Hg] [facility] Diastolic blood pressure 2023-06-17 22:06:00 82 mm[Hg] [facility] Heart rate 2023-06-17 22:06:00 84 /min [facility] Body temperature 2023-06-17 22:06:00 36.61 [facility] Respiratory rate 2023-06-17 22:06:00 17 /min [facility] Body height 2023-06-17 22:06:00 152.4 cm [facility] Body weight 2023-06-17 22:06:00 86.183 kg [facility] BMI 2023-06-17 22:06:00 37.11 kg/m2 [facility] Oxygen saturation in Arterial blood by Pulse oximetry 2023-06-17 22:06:00 98 /min [facility] Systolic blood pressure 2023-05-02 21:58:00 131 mm[Hg] [facility] Diastolic blood pressure 2023-05-02 21:58:00 83 mm[Hg] [facility] Heart rate 2023-05-02 21:58:00 100 /min [facility] Body temperature 2023-05-02 21:58:00 36.17 [facility] Respiratory rate 2023-05-02 21:58:00 16 /min [facility] Body height 2023-05-02 21:58:00 152.4 cm [facility] Body weight 2023-05-02 21:58:00 89.54 kg [facility] BMI 2023-05-02 21:58:00 38.55 kg/m2 [facility] Oxygen saturation in Arterial blood by Pulse oximetry 2023-05-02 21:58:00 96 /min [facility] Systolic blood pressure 2023-04-02 18:16:00 122 mm[Hg] [facility] Diastolic blood pressure 2023-04-02 18:16:00 88 mm[Hg] [facility] Heart rate 2023-04-02 18:16:00 101 /min [facility] Body temperature 2023-04-02 18:16:00 36.83 [facility] Respiratory rate 2023-04-02 18:16:00 18 /min [facility] Body height 2023-04-02 18:16:00 154.9 cm [facility] Body weight 2023-04-02 18:16:00 86.909 kg [facility] BMI 2023-04-02 18:16:00 36.20 kg/m2 [facility] Oxygen saturation in Arterial blood by Pulse oximetry 2023-04-02 18:16:00 98 /min [facility] Systolic blood pressure 2023-02-16 02:40:00 132 mm[Hg] [facility] Diastolic blood pressure 2023-02-16 02:40:00 72 mm[Hg] [facility] Heart rate 2023-02-16 02:40:00 84 /min [facility] Respiratory rate 2023-02-16 02:40:00 16 /min [facility] Oxygen saturation in Arterial blood by Pulse oximetry 2023-02-16 02:40:00 98 /min [facility] Body temperature 2023-02-15 19:39:00 36.78 [facility] Body height 2023-02-15 19:39:00 154.9 cm [facility] Body weight 2023-02-15 19:39:00 86.637 kg [facility] BMI 2023-02-15 19:39:00 36.09 kg/m2 [facility] Systolic blood pressure 2022-12-05 19:51:00 126 mm[Hg] [facility] Diastolic blood pressure 2022-12-05 19:51:00 83 mm[Hg] [facility] Heart rate 2022-12-05 19:51:00 92 /min [facility] Body temperature 2022-12-05 19:51:00 36.61 [facility] Respiratory rate 2022-12-05 19:51:00 16 /min [facility] Body height 2022-12-05 19:51:00 152.4 cm [facility] Body weight 2022-12-05 19:51:00 89.841 kg [facility] BMI 2022-12-05 19:51:00 38.68 kg/m2 [facility] Oxygen saturation in Arterial blood by Pulse oximetry 2022-12-05 19:51:00 96 /min [facility] height 2022-07-04 08:20:00 61 [in_i] [facility] weight 2022-07-04 08:20:00 191.5 [lb_av] [facility] temperature 2022-07-04 08:20:00 97.2 [degF] [facility] bmi 2022-07-04 08:20:00 36.18 kg/m2 [facility] oximetry 2022-07-04 08:20:00 99 % [facility] respiratory rate 2022-07-04 08:20:00 18 /min [facility] blood pressure systolic 2022-07-04 08:20:00 115 mm[Hg] [facility] blood pressure diastolic 2022-07-04 08:20:00 71 mm[Hg] [facility] Systolic blood pressure 2022-05-30 16:35:00 133 mm[Hg] [facility] Diastolic blood pressure 2022-05-30 16:35:00 89 mm[Hg] [facility] Heart rate 2022-05-30 16:35:00 116 /min [facility] Body temperature 2022-05-30 16:35:00 36.89 [facility] Respiratory rate 2022-05-30 16:35:00 18 /min [facility] Body height 2022-05-30 16:35:00 152.4 cm [facility] Body weight 2022-05-30 16:35:00 88.99 kg [facility] BMI 2022-05-30 16:35:00 38.32 kg/m2 [facility] Oxygen saturation in Arterial blood by Pulse oximetry 2022-05-30 16:35:00 100 /min [facility] height 2022-03-14 13:50:00 61 [in_i] Commo n [facility] weight 2022-03-14 13:50:00 189 [lb_av] Comm on [facility] temperature 2022-03-14 13:50:00 97.6 [degF] Com mon [facility] bmi 2022-03-14 13:50:00 35.71 kg/m2 Comm on [facility] oximetry 2022-03-14 13:50:00 100 % Commo n [facility] respiratory rate 2022-03-14 13:50:00 16 /min [facility] blood pressure systolic 2022-03-14 13:50:00 132 mm[Hg] [facility] blood pressure diastolic 2022-03-14 13:50:00 73 mm[Hg] [facility] height 2022-03-14 13:40:00 61 [in_i] Commo n [facility] weight 2022-03-14 13:40:00 189 [lb_av] Comm on [facility] temperature 2022-03-14 13:40:00 97.6 [degF] Com mon [facility] bmi 2022-03-14 13:40:00 35.71 kg/m2 Comm on [facility] oximetry 2022-03-14 13:40:00 100 % Commo n [facility] respiratory rate 2022-03-14 13:40:00 16 /min [facility] blood pressure systolic 2022-03-14 13:40:00 132 mm[Hg] [facility] blood pressure diastolic 2022-03-14 13:40:00 73 mm[Hg] [facility] Systolic blood pressure 2022-01-16 20:40:00 135 mm[Hg] [facility] Diastolic blood pressure 2022-01-16 20:40:00 87 mm[Hg] [facility] Heart rate 2022-01-16 20:40:00 98 /min [facility] Body temperature 2022-01-16 20:40:00 36.5 [facility] Respiratory rate 2022-01-16 20:40:00 16 /min [facility] Body height 2022-01-16 20:40:00 152.4 cm [facility] Body weight 2022-01-16 20:40:00 83.779 kg [facility] BMI 2022-01-16 20:40:00 36.07 kg/m2 [facility] Oxygen saturation in Arterial blood by Pulse oximetry 2022-01-16 20:40:00 99 /min [facility] Systolic blood pressure 2022-01-05 15:50:00 158 mm[Hg] [facility] Diastolic blood pressure 2022-01-05 15:50:00 89 mm[Hg] [facility] Heart rate 2022-01-05 15:50:00 101 /min [facility] Body temperature 2022-01-05 15:50:00 37.06 [facility] Respiratory rate 2022-01-05 15:50:00 18 /min [facility] Body height 2022-01-05 15:50:00 154.9 cm [facility] Body weight 2022-01-05 15:50:00 79.379 kg [facility] BMI 2022-01-05 15:50:00 33.07 kg/m2 [facility] Oxygen saturation in Arterial blood by Pulse oximetry 2022-01-05 15:50:00 100 /min [facility] height 2021-12-13 16:20:00 61 [in_i] Commo n [facility] weight 2021-12-13 16:20:00 170 [lb_av] Comm on [facility] temperature 2021-12-13 16:20:00 98.2 [degF] Com mon [facility] bmi 2021-12-13 16:20:00 32.12 kg/m2 Comm on [facility] blood pressure systolic 2021-12-13 16:20:00 125 mm[Hg] Common [facility] blood pressure diastolic 2021-12-13 16:20:00 74 mm[Hg] [facility] height 2021-09-06 16:30:00 61 [in_i] Commo n [facility] weight 2021-09-06 16:30:00 169 [lb_av] Comm on [facility] temperature 2021-09-06 16:30:00 97 [degF] Comm on [facility] bmi 2021-09-06 16:30:00 31.93 kg/m2 Comm on [facility] blood pressure systolic 2021-09-06 16:30:00 128 mm[Hg] [facility] blood pressure diastolic 2021-09-06 16:30:00 72 mm[Hg] Common [facility] height 2021-06-06 15:50:00 61 [in_i] Commo n [facility] weight 2021-06-06 15:50:00 170 [lb_av] Comm on [facility] temperature 2021-06-06 15:50:00 98 [degF] Comm on [facility] bmi 2021-06-06 15:50:00 32.12 kg/m2 Comm on [facility] blood pressure systolic 2021-06-06 15:50:00 130 mm[Hg] Common [facility] blood pressure diastolic 2021-06-06 15:50:00 70 mm[Hg] [facility] Systolic blood pressure 2021-05-15 20:07:00 140 mm[Hg] [facility] Diastolic blood pressure 2021-05-15 20:07:00 90 mm[Hg] [facility] Heart rate 2021-05-15 20:07:00 105 /min [facility] Body height 2021-05-15 20:07:00 154.9 cm [facility] Body weight 2021-05-15 20:07:00 74.844 kg [facility] BMI 2021-05-15 20:07:00 31.18 kg/m2 [facility] Procedures Procedure Date / Time Performed Performing Clinicia n Source POCT SARS-COV-2 ANTIGEN (BINAX NOW) 2023-11-07 23:53:00 Ledy Liz [facility] POCT MOLECULAR FLU 2023-11-07 23:33:00 Unknown, Attend [facility] POCT MOLECULAR STREP 2023-11-07 23:29:00 Unknown, Atte francisco [facility] CONSENT/REFUSAL FOR DIAGNOSIS AND TREATMENT 2023-10-22 16:32:06 Doctor Unassigned, [place] [facility] MAGNESIUM 2023-08-15 18:27:[address] [facility] TROPONIN I 2023-08-15 18:27:[address] [facility] COMP. METABOLIC PANEL (22505) 2023-08-15 18:27:00 Hakan Conti [facility] CBC WITH DIFF 2023-08-15 18:27:00 Sita, K [facility] URINALYSIS 2023-08-15 18:27:[address] [facility] N-TERMINAL PRO-BNP 2023-08-15 18:27:00 Hakan Conti [facility] XR CHEST 1 VW 2023-08-15 18:24:14 Sita, K [facility] CONSENT/REFUSAL FOR DIAGNOSIS AND TREATMENT 2023-08-15 17:06:55 Doctor Unassigned, [place] [facility] POCT SARS-COV-2 ANTIGEN (BINAX NOW) 2023-07-01 20:15:00 Natalia Vásquez [facility] POCT MOLECULAR FLU 2023-07-01 20:11:00 Unknown, Attend [facility] POCT MOLECULAR STREP 2023-07-01 20:09:00 Unknown, [place] [facility] ASSIGNMENT OF BENEFITS 2023-07-01 18:30:35 Docto r Unassigned, [place] [facility] CONSENT/REFUSAL FOR DIAGNOSIS AND TREATMENT 2023-07-01 17:25:30 Doctor Unassigned, [place] [facility] ASSIGNMENT OF BENEFITS 2023-06-25 15:32:57 Docto r Unassigned, [place] [facility] POCT SARS-COV-2 ANTIGEN (BINAX NOW) 2023-06-17 22:11:00 Melissa Yancey [facility] POCT SARS-COV-2 ANTIGEN (BINAX NOW) 2023-05-02 22:10:00 Natalia Vásquez [facility] POCT SARS-COV-2 ANTIGEN (BINAX NOW) 2023-04-02 18:54:00 Lv Wolf [facility] CT ABDOMEN PELVIS W CONTRAST 2023-02-15 22:28:42 Hakan Conti [facility] LIPASE 2023-02-15 21:08:00 Hakan Conti [facility] MAGNESIUM 2023-02-15 21:08:00 [facility] TROPONIN I 2023-02-15 21:08:00 Hakan Conti [facility] COMP. METABOLIC PANEL (30557) 2023-02-15 21:08:00 Hakan Conti [facility] CBC WITH DIFF 2023-02-15 21:08:00 Hakan Conti [facility] URINALYSIS 2023-02-15 21:08:00 Hakan Conti [facility] ASSIGNMENT OF BENEFITS 2023-02-15 20:57:48 Racquel r Unassigned, [place] [facility] NOTICE OF PRIVACY PRACTICES 2023-02-15 19:28:07 Doctor Unassigned, [place] [facility] CONSENT/REFUSAL FOR DIAGNOSIS AND TREATMENT 2023-02-15 19:27:07 Doctor Unassigned, [place] [facility] POCT SARS-COV-2 ANTIGEN (BINAX NOW) 2022-12-05 20:09:00 Arcenio Napoles [facility] PATIENT FINANCIAL POLICY 2022-12-05 19:44:23 Doctor Unassigned, [place] [facility] ASSIGNMENT OF BENEFITS 2022-05-30 16:28:29 Docto r Unassigned, [place] [facility] CT ABDOMEN PELVIS WO CONTRAST 2022-01-05 17:20:35 Gary Gonzalez [facility] XR KUB 2022-01-05 16:21:08 Gary Gonzalez [facility] POCT TEST 2022-01-05 16:08:00 Gary Gonzalez [facility] LIPASE 2022-01-05 16:06:00 Gary Gonzalez [facility] HEPATIC FUNCTION PANEL ([id number]) (ALB,T.PRO,BILI T,BU/BC,ALT,AST,ALK PHOS) 2022-01-05 16:06:00 [facility] BASIC METABOLIC PANEL (NA, K, CL, CO2, GLUCOSE, BUN, CREATININE, CA) 2022-01-05 16:06:00 [facility] CBC WITH DIFF 2022-01-05 16:06:[address] [facility] URINALYSIS 2022-01-05 16:06:00 Gary Gonzalez [facility] CONSENT/REFUSAL FOR DIAGNOSIS AND TREATMENT 2022-01-05 15:43:39 Doctor Unassigned, [place] [facility] Encounters Start Date/Time End Date/Time Encounter Type Admission Type Attending [facility] Care Facility Care Department Encounter ID Source 2023-12-04 09:13:00 Outpatient [facility]gins, On license of [facility] [id number] [facility] 2023-09-03 09:33:00 Outpatient [facility]gins, On license of [facility] [id number] [facility] 2022-10-03 08:13:00 Outpatient Higgins, On license of [facility] [id number] [facility] 2022-07-02 10:13:01 Outpatient Higgins, On license of [facility] [id number] [facility] 2022-06-12 09:17:00 Outpatient Higgins, Prakash STLMLC STLMLC [id number] [facility] 2021-09-20 14:00:52 Outpatient Higgins, Prakash STLMLC STLMLC [id number] [facility] 2021-09-20 13:53:20 Outpatient Higgins, Prakash STLMLC STLMLC [id number] [facility] 2021-09-20 13:19:51 Outpatient Higgins, Prakash STLMLC STLMLC [id number] [facility] 2021-09-20 13:14:31 Outpatient Higgins, Prakash STLMLC STLMLC [id number] [facility] 2021-09-20 12:50:04 Outpatient Higgins, Prakash STLC STLMLC [id number] [facility] 2021-09-20 12:48:36 Outpatient Higgins, Prakash STLC STLMLC [id number] [facility] 2021-06-26 17:19:59 Emergency [facility] [id number] [facility] 2021-06-26 08:32:13 Emergency [facility] [id number] [facility] 2021-06-26 02:13:21 Emergency [facility] [id number] [facility] 2021-06-25 21:06:07 Emergency [facility] [id number] [facility] 2021-06-25 12:29:01 Emergency [facility] [id number] [facility] 2021-06-25 01:51:21 Emergency [facility] [id number] [facility] 2023-11-07 18:00:00 2023-11-07 19:32:26 Outpatient CRISTEL FARRELL SHAHNAZ [facility] [id number] [facility] 2023-11-07 18:00:00 2023-11-07 19:32:26 Urgent Care Cristel Vargas Unknown, Attending [facility] 1.2840.114 350.1.13.10 4.2.7.2.686 [id number] [facility] 2023-10-22 10:39:00 2023-10-22 11:53:00 Emergency X Hakan CONTI [facility] ERT [id number] [facility] 2023-10-22 10:39:00 2023-10-22 11:53:00 Emergency Hakan Conti [facility] 1.2840.114 350.1.13.10 4.2.7.2.686 [id number] [facility] 2023-08-16 00:00:00 2023-08-16 00:00:00 (TEL) STLMLC STLC [id number] [facility] 2023-08-15 11:19:00 2023-08-15 14:44:00 Emergency X Hakan CONTI [facility] ERT [id number] [facility] 2023-08-15 11:19:00 2023-08-15 14:44:00 Emergency Hakan Conti [facility] 1.2.840.114 350.1.13.10 4.2.7.2.686 [id number] [facility] 2023-07-11 00:00:00 2023-07-11 00:00:00 Patient Secure Msg Doctor Unassigned, [place] [facility] 1.2840.114 350.1.13.10 4.2.7.2.686 [id number] [facility] 2023-07-01 13:20:00 2023-07-01 14:19:25 Outpatient LV KNOWLES [facility] [id number] [facility] 2023-07-01 13:20:00 2023-07-01 14:19:25 Urgent Care Lv Wolf Unknown, Attending [facility] 1.840.114 350.1.13.10 4.2.7.2.686 [id number] [facility] 2023-07-01 11:30:00 2023-07-01 13:18:00 Emergency X YANA HAWTHORNE, YANA [facility] ERT [id number] [facility] 2023-07-01 11:30:00 2023-07-01 13:18:00 Emergency Yana Hawthorne [facility] 1.84.114 350.1.13.10 4.2.7.2.686 [id number] [facility] 2023-06-25 10:40:00 2023-06-25 11:52:18 Outpatient R NATALIA VÁSQUEZ [facility] [id number] [facility] 2023-06-25 10:40:00 2023-06-25 11:00:00 Urgent Care Natalia Vásquez Unknown, Attending PEND[facility] S[facility] 1.84.114 350.1.13.10 4.2.7.2.686 [id number] [facility] 2023-06-25 00:00:00 2023-06-25 00:00:00 Orders Only Doctor Unassigned, [place] [facility] 1..114 350.1.13.10 4.2.7.2.686 [id number] [facility] 2023-06-18 00:00:00 2023-06-18 00:00:00 Letter (Out) Etta Solares [facility] 1.84.114 350.1.13.10 4.2.7.2.686 [id number] [facility] 2023-06-17 17:00:00 2023-06-17 17:30:14 Outpatient R MELISSA YANCEY [facility] [id number] [facility] 2023-06-17 17:00:00 2023-06-17 17:30:14 Urgent Care Melissa Yancey, Attending P[facility] 1.2.840.114 350.1.13.10 4.2.7.2.686 [id number] [facility] 2023-06-17 16:45:00 2023-06-17 16:45:00 Outpatient R UNKNOWN, [facility] [id number] [facility] 2023-06-17 00:00:00 2023-06-17 00:00:00 (TEL) STLMLC STLMLC [id number] [facility] 2023-05-02 16:40:00 2023-05-02 17:00:00 Urgent Care Fahad Natalia Ceci, Attending PENDING S[facility] 1.2.840.114 350.1.13.10 4.2.7.2.686 [id number] [facility] 2023-05-02 16:40:00 2023-05-02 16:40:00 Outpatient R SHINE VÁSQUEZANCA [facility] [id number] [facility] 2023-05-02 00:00:00 2023-05-02 00:00:00 Letter (Out) Natalia Vásquez PEND[facility] S[facility] 1.2.840.114 350.1.13.10 4.2.7.2.686 [id number] [facility] 2023-04-02 12:40:00 2023-04-02 14:01:19 Outpatient R LV WOLF [facility] [id number] [facility] 2023-04-02 12:40:00 2023-04-02 14:01:19 Urgent Care Lv Wolf Unknown, Attending PEND[facility] S[facility] 1.2.840.114 350.1.13.10 4.2.7.2.686 [id number] [facility] 2023-02-15 14:40:00 2023-02-15 21:46:00 Emergency X SITA, Hakan [facility] ERT [id number] [facility] 2023-02-15 14:40:00 2023-02-15 21:46:00 Emergency Hakan Conti Barbara [facility] 1..840.114 350.1.13.10 4.2.7.2.686 [id number] [facility] 2022-12-05 14:40:00 2022-12-05 15:18:01 Outpatient R ARCENIO NAPOLES [facility] [id number] [facility] 2022-12-05 14:40:00 2022-12-05 15:18:01 Urgent Care Arcenio Napoles Unknown, Attending [facility] 1.2.840.114 350.1.13.10 4.2.7.2.686 [id number] [facility] 2022-12-05 00:00:00 2022-12-05 00:00:00 Orders Only Doctor Unassigned, [place] [facility] 1.2.840.114 350.1.13.10 4.2.7.2.686 [id number] [facility] 2022-07-04 00:00:00 2022-07-04 00:00:00 OFFICE VISIT ESTAB PT LEVEL 4 STLMLC [facility] [id number] [facility] 2022-05-30 13:00:00 2022-05-30 13:20:00 Urgent Care Melissa Yancey Brittany [facility]END[facility] S[facility] 1.2.840.114 350.1.13.10 4.2.7.2.686 [id number] [facility] 2022-05-30 13:00:00 2022-05-30 13:00:00 Outpatient R ANDRIY MELISSA [facility] [id number] [facility] 2022-05-30 00:00:00 2022-05-30 00:00:00 Orders Only Doctor Unassigned, [place] [facility] 1..840.114 350.1.13.10 4.2.7.2.686 [id number] [facility] 2022-05-03 00:00:00 2022-05-03 00:00:00 (TEL) STLMLC STLMLC [id number] [facility] 2022-03-14 00:00:00 2022-03-14 00:00:00 OFFICE VISIT ESTAB PT LEVEL 4 STLMLC STLMLC [id number] [facility] 2022-03-14 00:00:00 2022-03-14 00:00:00 (TEL) STLMLC STLMLC [id number] [facility] 2022-03-14 00:00:00 2022-03-14 00:00:00 SUB ANNUAL [facility] WELLNESS VISIT STLMLC STLMLC [id number] [facility] 2022-01-16 16:00:00 2022-01-16 16:03:05 Outpatient R NATALIA VÁSQUEZ [facility] [id number] [facility] 2022-01-16 16:00:00 2022-01-16 16:03:05 Urgent Care Natalia Vásquez [facility] 1.2.840.114 350.1.13.10 4.2.7.2.686 [id number] [facility] 2022-01-05 10:54:00 2022-01-05 13:07:00 Emergency X GARY GONZALEZ [facility] ERT [id number] [facility] 2022-01-05 10:54:00 2022-01-05 13:07:00 Emergency Gary Gonzalez [facility] 1.2.840.114 350.1.13.10 4.2.7.2.686 [id number] [facility] 2021-12-28 13:20:00 2021-12-28 13:20:00 Outpatient NATALIA DURAN [facility] [id number] [facility] 2021-12-13 00:00:00 2021-12-13 00:00:00 OFFICE VISIT ESTAB PT LEVEL 4 STLMLC STLMLC [id number] [facility] 2021-09-06 00:00:00 2021-09-06 00:00:00 OFFICE VISIT EST PT LEVEL 3 STLMLC STLMLC [id number] [facility] 2021-08-14 15:45:00 2021-08-14 16:00:00 Laboratory Only Only, Ang Db Test [facility] 1.2.840.114 350.1.13.10 4.2.7.2.686 [id number] [facility] 2021-08-14 15:45:00 2021-08-14 15:54:14 Outpatient FIDENCIO DELGADO [facility] [id number] [facility] 2021-08-01 00:00:00 2021-08-01 00:00:00 (TEL) STLMLC STLMLC [id number] [facility] 2021-06-15 00:00:00 2021-06-15 00:00:00 (TEL) STLMLC STLMLC [id number] [facility] 2021-06-12 13:30:00 2021-06-12 13:30:00 Outpatient JENNA NG [facility] [id number] [facility] 2021-06-06 00:00:00 2021-06-06 00:00:00 OFFICE VISIT ESTAB PT LEVEL 4 STLMLC STLMLC [id number] [facility] 2021-06-05 13:30:00 2021-06-05 13:30:00 Outpatient Chet ROCKY JENNA [facility] [id number] [facility] 2021-05-15 15:01:19 2021-05-15 15:16:19 Office Visit Rocky [facility] 1.2.840.114 350.1.13.10 4.2.7.2.686 [id number] [facility] 2021-05-15 15:00:00 2021-05-15 15:00:00 Outpatient R ROCKY [facility] [id number] [facility] 2021-05-10 13:00:00 2021-05-10 13:00:00 Outpatient R ROCKY JENNA [facility] [id number] [facility] 2021-04-19 15:25:00 2021-04-19 23:59:00 Hospital Encounter Rocky [facility] 1.2.840.114 350.1.13.10 4.2.7.2.686 [id number] [facility] 2021-04-19 15:25:00 2021-04-19 23:59:00 Outpatient R ROCKY [facility] [id number] [facility] 2021-04-19 15:16:01 2021-04-19 17:12:29 Office Visit Jenna Lowery Craig L [facility] 1.2.840.114 350.1.13.10 4.2.7.2.686 [id number] [facility] 2021-02-21 00:00:00 2021-02-21 00:00:00 Outpatient STLMLC STLMLC [id number] [facility] 2021-02-21 00:00:00 2021-02-21 00:00:00 Outpatient STLMLC STLMLC [id number] [facility] 2021-02-08 00:00:00 2021-02-08 00:00:00 Outpatient STLMLC STLMLC [id number] [facility] 2021-02-06 00:00:00 2021-02-06 00:00:00 Outpatient STLMLC STLMLC [id number] [facility] 2021-01-20 08:30:00 2021-01-20 08:30:00 Outpatient JENNA NG [facility] [id number] [facility] 2021-01-02 00:00:00 2021-01-02 00:00:00 Outpatient STLMLC STLMLC [id number] [facility] 2020-12-21 13:30:00 2020-12-21 13:30:00 Outpatient CARLOS COLEY [facility] [id number] [facility] 2020-12-12 00:00:00 2020-12-12 00:00:00 Outpatient STLMLC STLMLC [id number] [facility] 2020-12-12 00:00:00 2020-12-12 00:00:00 Outpatient STLMLC STLMLC [id number] [facility] 2020-12-06 09:33:00 2020-12-06 10:58:00 Emergency Boby Bal [facility] 1.2.840.114 350.1.13.10 4.2.7.2.686 [id number] 2020-11-29 00:00:00 2020-11-29 00:00:00 Outpatient STLMLC STLMLC [id number] [facility] 2020-11-10 00:00:00 2020-11-10 00:00:00 Patient Outreach SanjayWilly [facility] 1.840.114 350.1.13.10 4.2.7.2.686 [id number] 2020-10-22 13:44:00 2020-10-22 16:22:00 Emergency Mariela Dionne Tori Lopez [facility] 1.0.114 350.1.13.10 4.2.7.2.686 [id number] 2020-01-07 00:00:00 2020-01-07 00:00:00 Telephone Fidencio Khan [facility] 1..114 350.1.13.10 4.2.7.2.686 [id number] 2019-11-03 00:00:00 2019-11-03 00:00:00 Telephone Kaylah Wolff [facility] 1.114 350.1.13.10 4.2.7.2.686 [id number] 2019-11-02 15:39:02 2019-11-02 23:59:00 Outpatient R RADIOLOGY [facility] [id number] [facility] 2019-11-02 15:30:00 2019-11-02 23:59:00 Hospital Encounter Radiology [facility] 1..114 350.1.13.10 4.2.7.2.686 [id number] 2019-11-02 00:00:00 2019-11-02 00:00:00 Orders Only Doctor Unassigned, [place] [facility] 1..114 350.1.13.10 4.2.7.2.686 [id number] 2019-10-28 15:11:42 2019-10-28 15:59:11 Office Visit Kaylah Wolff [facility] 1.114 350.1.13.10 4.2.7.2.686 [id number] 2019-10-28 15:20:00 2019-10-28 15:20:00 Outpatient R KAYLAH WOLFF [facility] [id number] [facility] 2019-10-26 16:50:10 2019-10-26 19:30:00 Emergency X BOBY BAL [facility] ERT [id number] [facility] 2019-05-18 12:49:44 2019-05-18 15:02:00 Emergency X ANDREW MAXWELL [facility] ERT [id number] [facility] Results Test Description Test Time Test Comments Results Result Co mments Source [facility] Molecular [id number] 23:44:58* Test Item Value Reference Range Interpretation Comme nts POCT Molecular FluA (test co de = 01661-3) Negative Negative POCT Molecular FluB (test co de = 43169-3) Negative Negative Lab Interpretation (test cod e = 62883-2) Normal [facility] MOLECULAR [id number] 23:37:08* Test Item Value Reference Range Interpretation Comme nts POCT Molecular Strep (test c ode = 16983-3) Negative Negative Lab Interpretation (test cod e = 29607-3) [id number]:05:08* Test Item Value Reference Range Interpretation Comme nts TROPONIN I (test code = 5686928897) 0.005 ng/mL <=0.034 BRITTANY (test code = [...] of biotin. Lab Interpretation (test code = 95332-2) [id number] 19:02:25* Test Item Value Reference Range Interpretation Comme nts NT-proBNP (test code = 01392-5) 21 pg/mL <=125 Lab Interpretation (test cod e = 94536-2) [facility] 18:53:46* Test Item Value Reference Range Interpretation Comme nts MAGNESIUM (test code = 8825181953) 1.8 mg/dL 1.7-2.4 Lab Interpretation (test cod e = 00857-5) Normal [facility] Met[facility] (70752)2023-08-15 18:53:05* Test Item Value Reference Range Interpretation Comme nts NA (test code = 1878512953) 138 mmol/L 135-145 K (test code = 5633478757) 3.8 mmol/L 3.5-5.0 CL (test code = 5999746206) 106 mmol/L 98-108 CO2 TOTAL (test code = 6390208856) 23 mmol/L 23-31 AGAP (test code = 1561629458) 9 2-16 BUN (test code = 1300201221) 14 mg/dL 7-23 GLUCOSE (test code = 1743316393) 75 mg/dL 70-110 CREATININE (test code = 5043505794) 0.74 mg/dL 0.50-1.04 TOTAL BILI (test code = 0294314905) 0.3 mg/dL 0.1-1.1 CALCIUM (test code = 4556536184) 8.9 mg/dL 8.6-10.6 T PROTEIN (test code = 9630274134) 7.1 g/dL 6.3-8.2 ALBUMIN (test code = 2949626698) 4.1 g/dL 3.5-5.0 ALK PHOS (test code = 0133317486) 82 U/L 34-122 ALTv (test code = 1742-6) 39 U/L 5-35 H AST(SGOT) (test code = 2264124557) 33 U/L 13-40 eGFR (test code = 73507-8) 99.9 mL/min/1.73m2 CKD-EPI eGFR (2021). Assuming creatinine has been stable day-to-day for at least three months, the eGFR indicates Category G1 (>= 90 mL/min/1.73 m2) Lab Interpretation (test code = 50998-4) Abnormal [facility] with Jerq0487-94-18 18:45:05* Test Item Value Reference Range Interpretation Comme nts WBC (test code = 6690-2) 6.21 See_Comment [Automated [employer] ge] The system which generated this result transmitted reference range: 4.30 - 11.10 10*3/?L. The reference range was not used to interpret this result as normal/abnormal. RBC (test code = 789-8) 4.21 See_Comment [Automated [employer] ge] The system which generated this result [...] 33.7 g/dL 31.6-35.1 RDW-SD (test code = 55881-5) 46.5 fL 39.0-49.9 RDW-CV (test code = 788-0) 13.8 % 12.0-15.5 PLT (test code = 777-3) 246 See_Comment [Automated messa ge] The system which generated this result transmitted reference range: 166 - 358 10*3/?L. The reference range was not used to interpret this result as normal/abnormal. MPV (test code = 93601-7) 10.7 fL 9.5-12.9 NRBC/100 WBC (test code = 4076095848) 0.0 See_Comment [Automated [employer] ssage] The system which generated this result transmitted reference range: 0.0 - 10.0 /100 WBCs. The reference range was not used to interpret this result as normal/abnormal. NRBC x10^3 (test code = 4106462991) See_Comment [Automated messa ge] The system which generated this result transmitted reference range: 10*3/?L. The reference range was not used to interpret this result as normal/abnormal. GRAN MAT (NEUT) % (test code = 770-8) 50.9 % IMM GRAN % (test code = 7585451228) 0.50 % LYMPH % (test code = 736-9) 29.5 % MONO % (test code = 5905-5) 11.8 % EOS % (test code = 713-8) 6.0 % BASO % (test code = 706-2) 1.3 % GRAN MAT x10^3(ANC) (test code = 0958478083) 3.17 10*3/uL 1.88-7.09 IMM GRAN x10^3 (test code = 3041539230) 0.03 10*3/uL 0.00-0.06 LYMPH x10^3 (test code = 731-0) 1.83 10*3/uL 1.32-3.29 MONO x10^3 (test code = 742-7) 0.73 10*3/uL 0.33-0.92 EOS x10^3 (test code = 711-2) 0.37 10*3/uL 0.03-0.39 BASO x10^3 (test code = 704-7) 0.08 10*3/uL 0.01-0.07 H Lab Interpretation (test code = 59941-0) [facility]normal [facility] HospitalXR [facility] 1 IM1739-31-66 18:27:36HISTORY: Fatigue. TECHNIQUE: Portable AP view of the chest is obtained. Comparison made with10/26/2019 study. FINDINGS: No acute pneumonia. Soft tissue fullness in right cardiophrenicregion is essentially unchanged since the previous study. No pneumothoraxor pleural effusion or pulmonary congestion detected. Cardiac size iswithin upper normal limits. CONCLUSIONS: No signs of acute cardiopulmonary di sease.[facility] MOLECULAR MEYZH8841-02-16 20:17:15 * Test Item Value Reference Range Interpretation Comme nts POCT Molecular Strep (test c ode = 60451-3) Negative Negative Lab Interpretation (test cod e = 13904-8) Normal [facility] MOLECULAR JLA6166-34-38 20:15:17* Test Item Value Reference Range Interpretation Comme nts POCT Molecular FluB (test co de = 70226-8) Positive Negative A Lab Interpretation (test cod e = 86128-5) Abnormal [facility] SARS-COV-2 ANTIGEN (BINAX NOW)2023-07-01 20:15:00* Test Item Value Reference Range Interpretation Comme nts POCT SARS-COV-2 ANTIGEN (test code = 29640-3) Not Detected Not Detected On board controls acceptable with C Line (test code = 3574) Yes BRITTANY (test code = BRITTANY) accurate developme nt and interpretation of all internal controls Lab Interpretation (test code = 76799-5) Normal [facility] SARS-COV-2 ANTIGEN (BINAX NOW)2023-06-17 22:11:00* Test Item Value Reference Range Interpretation Comme nts POCT SARS-COV-2 ANTIGEN (test code = 13036-3) Not Detected Not Detected On board controls acceptable with C Line (test code = 3574) Yes BRITTANY (test code = BRITTANY) accurate developme nt and interpretation of all internal controls Lab Interpretation (test code = 87909-4) Normal [facility] SARS-COV-2 ANTIGEN (BINAX NOW)2023-06-17 22:11:00* Test Item Value Reference Range Interpretation Comme nts POCT SARS-COV-2 ANTIGEN (test code = 34544-5) Not Detected Not Detected On board controls acceptable with C Line (test code = 3574) Yes BRITTANY (test code = BRITTANY) accurate developme nt and interpretation of all internal controls Lab Interpretation (test code = 67785-7) Normal [facility] SARS-COV-2 ANTIGEN (BINAX NOW)2023-05-02 22:10:00* Test Item Value Reference Range Interpretation Comme nts POCT SARS-COV-2 ANTIGEN (idania t code = 42472-0) Not Detected Not Detected On board controls acceptable with C Line (test code = 3574) Yes [facility] SARS-COV-2 ANTIGEN (BINAX NOW)2023-04-02 18:54:00* Test Item Value Reference Range Interpretation Comme nts POCT SARS-COV-2 ANTIGEN (test code = 50394-5) Not Detected Not Detected On board controls acceptable with C Line (test code = 3574) Yes BRITTANY (test code = BRITTANY) accurate developme nt and interpretation of all internal controls Lab Interpretation (test code = 65850-8) Normal [facility] HospitalTROPONIN V0588-20-81 22:50:48* Test Item Value Reference Range Interpretation Comme nts TROPONIN I (test code = 2608507626) 0.000 ng/mL <=0.034 BRITTANY (test code = [...] of biotin. Lab Interpretation (test code = 82403-2) Normal [facility]UM2023-[facility]-23 22:41:08* Test Item Value Reference Range Interpretation Comme nts MAGNESIUM (test code = 0104930055) 1.9 mg/dL 1.7-2.4 Lab Interpretation (test cod e = 36500-1) Normal [facility]COMP. METABOLIC PANEL (35025)2023-02-15 22:41:07* Test Item Value Reference Range Interpretation Comme nts NA (test code = 4023515202) 140 mmol/L 135-145 K (test code = 0989651322) 4.3 mmol/L 3.5-5.0 CL (test code = 5547884079) 105 mmol/L 98-108 CO2 TOTAL (test code = 7858311422) 25 mmol/L 23-31 AGAP (test code = 2648396353) 10 2-16 BUN (test code = 3235514589) 16 mg/dL 7-23 GLUCOSE (test code = 1052003109) 68 mg/dL 70-110 L CREATININE (test code = 5825809468) 0.63 mg/dL 0.50-1.04 TOTAL BILI (test code = 6606759944) 0.5 mg/dL 0.1-1.1 CALCIUM (test code = 5327847682) 9.2 mg/dL 8.6-10.6 T PROTEIN (test code = 1886217053) 7.5 g/dL 6.3-8.2 ALBUMIN (test code = 7416722577) 4.5 g/dL 3.5-5.0 ALK PHOS (test code = 8864104950) 73 U/L 34-122 ALTv (test code = 1742-6) 42 U/L 5-35 H AST(SGOT) (test code = 4720626033) 31 U/L 13-40 eGFR (test code = 1223797244) 101.3 mL/min/1.73m2 BRITTANY (test code = BRITTANY) [...] imaging tests). Lab Interpretation (test code = 65986-5) [facility]normal [facility] 22:40:52* Test Item Value Reference Range Interpretation Comme nts LIPASE (test code = 9301110886) 106 U/L 0-220 Lab Interpretation (test cod e = 74014-3) Normal [facility] HospitalCB WITH QKNB0204-06-69 22:26:28* Test Item Value Reference Range Interpretation [...] 33.4 g/dL 31.6-35.1 RDW-SD (test code = 23298-6) 42.1 fL 39.0-49.9 RDW-CV (test code = 788-0) 12.7 % 12.0-15.5 PLT (test code = 777-3) 257 See_Comment [Automated messa ge] The system which generated this result transmitted reference range: 166 - 358 10*3/?L. The reference range was not used to interpret this result as normal/abnormal. MPV (test code = 86361-7) 11.1 fL 9.5-12.9 NRBC/100 WBC (test code = 1772663811) 0.0 See_Comment [Automated me ssage] The system which generated this result transmitted reference range: 0.0 - 10.0 /100 WBCs. The reference range was not used to interpret this result as normal/abnormal. NRBC x10^3 (test code = 8603237159) See_Comment [Automated messa ge] The system which generated this result transmitted reference range: 10*3/?L. The reference range was not used to interpret this result as normal/abnormal. GRAN MAT (NEUT) % (test code = 770-8) 52.3 % IMM GRAN % (test code = 9696669353) 0.50 % LYMPH % (test code = 736-9) 32.5 % MONO % (test code = 5905-5) 9.1 % EOS % (test code = 713-8) 4.2 % BASO % (test code = 706-2) 1.4 % GRAN MAT x10^3(ANC) (test code = 4350094745) 3.39 10*3/uL 1.88-7.09 IMM GRAN x10^3 (test code = 5942091046) 0.03 10*3/uL 0.00-0.06 LYMPH x10^3 (test code = 731-0) 2.10 10*3/uL 1.32-3.29 MONO x10^3 (test code = 742-7) 0.59 10*3/uL 0.33-0.92 EOS x10^3 (test code = 711-2) 0.27 10*3/uL 0.03-0.39 BASO x10^3 (test code = 704-7) 0.09 10*3/uL 0.01-0.07 H Lab Interpretation (test code = 85073-4) Abnormal [facility] SARS-COV-2 ANTIGEN (BINAX NOW)2022-12-05 20:09:00* Test Item Value Reference Range Interpretation Comme nts POCT SARS-COV-2 ANTIGEN (idania t code = 10661-7) Not Detected Not Detected On board controls acceptable with C Line (test code = 3574) Yes Lab Interpretation (test cod e = 72083-0) Normal [facility] METABOLIC PANEL (NA, K, CL, CO2, GLUCOSE, BUN, CREATININE, CA)2022-01-05 16:31:47* Test Item Value Reference Range Interpretation Comme nts NA (test code = 2629947458)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
[2023-12-09] MEDS ORDERED: NA CHLORIDE 0.9% 1,000 ML ONE (13:41)
[2023-12-09] MEDS ORDERED: FAMOTIDINE 20 MG/2 ML VIAL IV ONE (13:41)
[2023-12-09 14:39] LABS: Specific Gravity 1.025 (1.005-1.030); Sqamous Epithelial <5 /HPF (None Seen); Urine Bacteria <20 /HPF (<20); Urine Bilirubin NEGATIVE (Negative); Urine Blood Negative (Negative); Urine Clarity Turbid (Clear); Urine Color Light-Yellow (Yellow); Urine Culture Reflex Order NOT NEEDED; Urine Glucose NEGATIVE (Negative); Urine Ketones 1+ (Negative); Urine Microscopic Reflex YN ORDER UMIC; Urine Mucus 2+ /HPF (None Seen); Urine Nitrite NEGATIVE (Negative); Urine Protein TRACE (Negative); Urine RBC <5 /HPF (None Seen); Urine Urobilinogen Normal (Normal); Urine WBC <5 /HPF (<5); Urine pH 5.5 (5.0-7.0)
[2023-12-09 14:41] LABS: Absolute Basophils 0.2 K/uL (0-0.5); Absolute Eosinophils 0.5 K/uL (0-0.5); Absolute Lymphocytes (CBC) 1.1 K/uL (0.7-4.9); Absolute Monocytes 0.4 K/uL (0.1-1.3); Absolute Neutrophil 4.4 K/uL (1.8-8.0); Basophils % 2.5 % (0-1.3); Eosinophils % 8.2 % (0-4.4); Hematocrit 41.4 % (36.0-45.0); Hemoglobin 14.2 g/dL (12.0-15.0); Lymphocytes % 16.7 % (15.3-44.8); MCH 30.1 pg (27.0-35.0); MCHC 34.4 g/dL (32.0-36.0); MCV 87.6 fL (80-100); Monocytes % 6.3 % (3.3-12.3); Neutrophils % 66.3 % (41.7-73.7); Platelets 280 thou/uL (152-406); RBC Red Blood Cell Count 4.72 M/uL (3.86-4.86); Red Cell Distribution Width 13.7 % (12.1-15.2)
[2023-12-09 14:53] LABS: Albumin 3.7 g/dL (3.4-5.0); Bilirubin Total 0.4 mg/dL (0.2-1.0); Globulin 3.6 g/dL (2.3-3.5); Protein, Total 7.3 g/dL (6.4-8.2)
--- NOTE | 2023-12-09 15:01 | EDPHYS ---
Physician Documentation [facility] Name: Joy Strauss Age: 48 yrs Sex: Female : 1975 Arrival Date: 12/09/2023 Time: 12:51 Bed 14 Private MD: [facility] ED Physician Curtis Crow HPI: 12/08 13:13 This 48 yrs old Female presents to ER via Ambulatory with complaints of ec2 Vomiting/Diarrhea, Weakness. 13:13 Patient arrives today for evaluation of nausea, vomiting, diarrhea. Patient been having ec2 symptoms for approximately 1.5 to 2 weeks. Patient reports decreased p.o. intake, was seen here recently for same complaints, external record review shows the patient had CT scan that showed no acute pathology, hypokalemia noted as well. Patient taken Zofran with minimal alleviation of symptoms. Patient reports history of cholecystectomy.. 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 - Infectious Disease History:: Denies. - Social history:: Smoking status: Patient denies any tobacco usage or history of. ROS: 13:13 Constitutional: as per hpi ec2 Exam: 13:13 Constitutional: GEN: NAD Head: atraumatic Eyes: EOMI Ears: External ears are ec2 normal. CV: regular rate LUNGS: no respiratory distress ABD: non-distended, soft, generally tender, no guarding, nonrigid SKIN: no evidence of rashes MSK: no evidence of trauma NEURO: moves all extremities equally Vital Signs: 13:06 BP 142 / 80; Pulse 89; Resp 18; Temp 97.2(TE); Pulse Ox 100% ; Weight 86.18 kg; Height nj1 5 ft. 1 in. ; Pain 7/10; 15:25 BP 113 / 80; Pulse 71; Resp 18; Temp 98(O); Pulse Ox 100% ; Pain 8/10; tl4 13:06 Body Mass Index 35.90 (86.18 kg, 154.94 cm) nj1 13:06 Pain Scale: Adult nj1 15:25 Pain Scale: Adult tl4 MDM: 13:08 Patient medically screened. ec2 13:13 Data reviewed: vital signs. ED course: Patient arrives today for evaluation of nausea, ec2 vomiting, diarrhea. Examination remarkable for nontoxic dividual who is hemodynamically stable with a reassuring abdominal examination. Will obtain lab work, urine studies, treat the patient symptoms and reassess. Evaluate for electrolyte disturbances, pain with recent CT imaging so we will defer repeat CT scan of the abdomen pelvis at this time. Additionally considered other processes urinary tract infection, dehydration.. 14:50 ED course: CBC reassuring, urine is noninfectious appearing. . ec2 14:58 ED course: Metabolic profile shows slight hypokalemia with potassium of 3.0. . ec2 15:00 ED course: On reassessment patient with improvement in symptoms. Will discharge home, ec2 prescribed Compazine as needed for nausea. Return precautions given.. 12/08 13:12 Order name: CBC with Diff; Complete Time: 14:50 ec2 12/08 13:12 Order name: CMP; Complete Time: 14:58 ec2 12/08 13:12 Order name: Lipase; Complete Time: 14:58 ec2 12/08 13:12 Order name: Urinalysis w/ reflexes; Complete Time: 14:50 ec2 12/08 13:12 Order name: IV Saline Lock; Complete Time: 13:57 ec2 12/08 13:12 Order name: Labs collected and sent; Complete Time: 14:17 ec2 Administered Medications: 13:57 Drug: NS 0.9% IV 1000 ml IV at 1 bolus Per protocol; 1000 mL bolus Route: IV; Rate: 1 tl4 bolus; Site: right forearm; Delivery: Primary tubing; 15:09 Follow up: Response: No adverse reaction; IV Status: Completed infusion; IV Intake: tl4 1000ml 13:57 Drug: Famotidine IVP 20 mg IVP once; dilute with 10 mL 0.9% NaCl; give over 2 minutes tl4 Route: IVP; Infused Over: 2 mins; Site: right forearm; 15:08 Follow up: Response: No adverse reaction tl4 13:57 Drug: Droperidol IVP 2.5 mg IVP once Route: IVP; Site: right forearm; tl4 15:08 Follow up: Response: No adverse reaction tl4 Disposition Summary: 12/09/23 15:00 Discharge Ordered Notes: Location: Home ec2 Condition: Stable ec2 Diagnosis - Infectious gastroenteritis and colitis, unspecified ec2 Followup: ec2 - With: Prakash Higgins DO - When: - Reason: Recheck today's complaints Discharge Instructions: - Discharge Summary Sheet ec2 Forms: - Medication Reconciliation Form ec2 - Thank You Letter ec2 - Antibiotic Education ec2 - Prescription Opioid Use ec2 - Patient Portal Instructions ec2 - Leadership Thank You Letter ec2 - Work release form tl4 Prescriptions: - Compazine 10 mg Oral Tablet - take 1 tablet ORAL route every 8 hours As needed; 20 tablet; Refills: 0, ec2 Product Selection Permitted Signatures: Dispatcher [employer] Minerva Zabala RN RN nj1 Curtis Crow MD MD ec2 Ceasar Pandey RN RN tl4
--- NOTE | 2023-12-09 15:01 | ER ---
Nurse's Notes [facility] Name: Joy Strauss Age: 48 yrs Sex: Female : 1975 Arrival Date: 12/09/2023 Time: 12:51 Bed 14 Private MD: Prakash Higgins Diagnosis: Infectious gastroenteritis and colitis, unspecified Presentation: 12/08 13:06 Chief complaint: Patient states: Weakness, vomiting/diarrhea for almost 2 weeks, seen nj1 here about a week ago, not better, actually worse. Nauseous, diffused abdominal pain. Coronavirus screen: Vaccine status: Patient reports receiving the 2nd dose of the covid vaccine. Ebola Screen: Patient denies travel to an Ebola-affected area in the 21 days before illness onset. Initial Sepsis Screen: Does the patient meet any 2 criteria? No. Patient's initial sepsis screen is negative. Does the patient have a suspected source of infection? No. Patient's initial sepsis screen is negative. Risk Assessment: Do you want to hurt yourself or someone else? Patient reports no desire to harm self or others. Onset of symptoms was November 2023. 13:06 Method Of Arrival: Ambulatory [facility] 13:06 Acuity: FÉLIX 3 [facility] Triage Assessment: 13:10 General: Appears in no apparent distress. uncomfortable. [facility] 13:10 General: Behavior is calm, cooperative, appropriate for age. Pain: Complains of pain in [facility] abdomen Pain currently is 7 out of 10 on a pain scale. GI: Reports diarrhea, nausea, vomiting. 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 - Infectious Disease History:: Denies. - Social history:: Smoking status: Patient denies any tobacco usage or history of. Screenin:52 [facility] ED Fall Risk Assessment (Adult) History of falling in the last 3 months, tl4 including since admission No falls in past 3 months (0 pts) Confusion or Disorientation No (0 pts) Intoxicated or Sedated No (0 pts) Impaired Gait No (0 pts) Mobility Assist Device Used No (0 pt) Altered Elimination No (0 pt) Score/Fall Risk Level 0 - 2 = Low Risk Oriented to surroundings, Maintained a safe environment, Educated pt \T\ family on fall prevention, incl call for assistance when getting out of bed, Assessed \T\ reinforced patient's understanding of fall precautions, Hourly rounding (assess needs \T\ fall precautionary measures) done, Used ambulatory aids as needed (educated on \T\ assisted with), Used gait belt as appropriate. Abuse screen: Denies threats or abuse. Denies injuries from another. Nutritional screening: No deficits noted. Tuberculosis screening: No symptoms or risk factors identified. Assessment: 13:51 General: Appears uncomfortable, Behavior is calm, cooperative. Pain: Complains of pain tl4 in abdomen. Neuro: Level of Consciousness is awake, alert, obeys commands, Oriented to person, place, time, situation, Moves all extremities. Gait is steady, Speech is normal, Facial symmetry appears normal. Cardiovascular: Capillary refill < 3 seconds Patient's skin is warm and dry. Respiratory: Airway is patent Respiratory effort is even, unlabored, Respiratory pattern is regular, symmetrical, Breath sounds are clear bilaterally. GI: Abdomen is non-distended, Bowel sounds present X 4 quads. Reports lower abdominal pain. : No signs and/or symptoms were reported regarding the genitourinary system. EENT: No signs and/or symptoms were reported regarding the EENT system. Derm: No signs and/or symptoms reported regarding the dermatologic system. Musculoskeletal: No signs and/or symptoms reported regarding the musculoskeletal system. 15:20 Reassessment: Patient and/or family updated on plan of care and expected duration. Pain tl4 level reassessed. Patient is alert, oriented x 3, equal unlabored respirations, skin warm/dry/pink. Vital Signs: 13:06 BP 142 / 80; Pulse 89; Resp 18; Temp 97.2(TE); Pulse Ox 100% ; Weight 86.18 kg; Height nj1 5 ft. 1 in. ; Pain 7/10; 15:25 BP 113 / 80; Pulse 71; Resp 18; Temp 98(O); Pulse Ox 100% ; Pain 8/10; tl4 13:06 Body Mass Index 35.90 (86.18 kg, 154.94 cm) nj1 13:06 Pain Scale: Adult nj1 15:25 Pain Scale: Adult tl4 ED Course: 12:52 Patient arrived in ED. mr 12:52 Prakash Higgins DO is Private Physician. mr 12:54 Curtis Crow MD is Attending Physician. ec2 13:09 Triage completed. nj1 13:09 Arm band placed on right wrist. nj1 13:50 Inserted saline lock: 22 gauge in right forearm, using aseptic technique. tl4 13:58 Urinalysis w/ reflexes Sent. tl4 14:17 CBC with Diff Sent. tl4 14:17 CMP Sent. tl4 14:17 Lipase Sent. tl4 15:00 Prakash Higgins DO is Referral Physician. ec2 15:21 Patient has correct armband on for positive identification. Placed in gown. Bed in low tl4 position. Call light in reach. Side rails up X 1. Provided Education on: ED process. Client placed on continuous cardiac and pulse oximetry monitoring. NIBP monitoring applied. Door closed. Lights dimmed. Moved to private room. Warm blanket given. 15:25 No provider procedures requiring assistance completed. IV discontinued, intact, tl4 bleeding controlled, No redness/swelling at site. Pressure dressing applied. Administered Medications: 13:57 Drug: NS 0.9% IV 1000 ml IV at 1 bolus Per protocol; 1000 mL bolus Route: IV; Rate: 1 tl4 bolus; Site: right forearm; Delivery: Primary tubing; 15:09 Follow up: Response: No adverse reaction; IV Status: Completed infusion; IV Intake: tl4 1000ml 13:57 Drug: Famotidine IVP 20 mg IVP once; dilute with 10 mL 0.9% NaCl; give over 2 minutes tl4 Route: IVP; Infused Over: 2 mins; Site: right forearm; 15:08 Follow up: Response: No adverse reaction tl4 13:57 Drug: Droperidol IVP 2.5 mg IVP once Route: IVP; Site: right forearm; tl4 15:08 Follow up: Response: No adverse reaction tl4 Medication: 13:52 VIS not applicable for this client. tl4 Intake: 15:09 IV: 1000ml; Total: 1000ml. tl4 Outcome: 15:00 Discharge ordered by . ec2 15:25 Discharged to home ambulatory, tl4 15:25 Condition: stable 15:25 Discharge instructions given to patient, Instructed on discharge instructions, follow up and referral plans. medication usage, Demonstrated understanding of instructions, follow-up care, medications, Prescriptions given X 1, 15:40 Patient left the ED. tl4 Signatures: Jennifer Ren, Reg Reg mr LastMinerva, RN RN nj1 Curtis Crow MD MD ec2 Ceasar Pandey RN RN tl4 Corrections: (The following items were deleted from the chart) 13: 13:10 Pain: Complains of pain in abdomen nj1 nj1 13: 13:10 GI: Reports diarrhea, vomiting, nj1 nj1
[2023-12-09 16:46] VITALS: BP 113/80; TEMP 98; O2SAT 100
== END 2023-12-09 15:40 | disposition home or self-care (01) ==
LOC: ER 12:51
DX: A09 Infectious gastroenteritis and colitis, unspecified (principal)
CPT/HCPCS: 96361; 85025; 81001; 36415; 83690; 80053; 96375; 96374; 99284; J7030

== ENCOUNTER 2024-02-20 14:46 | Emergency (ER) | payer OTHER ==
--- OUTSIDE RECORDS SUMMARY | 2024-02-20 14:51 | XMS REPORT | Continuity of Care Document ---
Author Name Unknown Address [address] [facility] [address] [place] [address] [facility] Address [address] [facility] [address] [place] [address] Care Team Providers Care Field Gauger Name Role Phone Angel Higginsantonio Yuan Primary Care Physician [phone] Angel Higginsantonio Yuan Attending Clinician Unavailable CRISTEL VARGAS Attending Clinician Unavailable CRISTEL VARGAS Attending Clinician Unavailable Unknown, Attending Attending Clinician Unavailab Hakan Colindres Attending Clinician Unavailable Hakan Guzman Attending Clinician [phone] Doctor Unassigned, Negley Attending Clinician U navailable LV WOLF Attending Clinician Unavailable Lv Elizalde Attending Clinician [phone] YANA HAWTHORNE Attending Clinician Unavailable YANA HAWTHORNE Attending Clinician Unavailable NATALIA VÁSQUEZ Attending Clinician Unavailable Natalia Vega Attending Clinician [phone] Etta Solares RN Attending Clinician Unavailable MELISSA YANCEY Attending Clinician Unavailable Melissa Yancey MD Attending Clinician [phone] UNKNOWN, ATTENDING Attending Clinician Unavailab ARCENIO Martínez Attending Clinician Unavailable Arcenio Napoles PA-C Attending Clinician [phone] Bill COPY MANAGER, Fidencio Attending Clinician [phone] Green COPY MANAGER, Mary Kay Attending Clinician [phone] GARY GONZALEZ Attending Clinician Unavailable Carlos COPY MANAGER, Gary Attending Clinician [phone] Only, Ang Db Test Attending Clinician UnavailFIDENCIO Pollard Attending Clinician UnavailJENNA Pryor Attending Clinician Unavailable Jenna Garcia Attending Clinician [phone] Jason Perkins MD Attending Clinician [phone] CARLOS ANDERSON Attending Clinician Unavailable Boby Bla DO Attending Clinician [phone] Willy Grace DO Attending Clinician [phone] Dionne Sierra NP Attending Clinician [phone] Tori Shaw DO Attending Clinician [phone] Kaylah Pool Attending Clinician [phone] RADIOLOGY Attending Clinician Unavailable Radiology Attending Clinician Unavailable KAYLAH WOLFF Attending Clinician Unavailable BOBY BAL Attending Clinician Unavailable ANDREW MAXWELL Attending Clinician Unavailable Hakan CONTI Admitting Clinician Unavailable GARY GONZALEZ Admitting Clinician Unavailable ADELFO MONTEIRO Admitting Clinician Unavailable BOBY BAL Admitting Clinician Unavailable Payers Payer Name Policy Type Policy Number Effective Date Expirati on Date Source MEDICARE PART A \\T\\ [id number] 2006 00:00:00 [facility] MEDICAID [id number] 2016 00:00:00 [facility] [id number] 2011 00:00:00 MEDICAID [id number] 2020 00:00:00 [facility] MEDICARE [facility] [id number] 2006 00:00:00 [facility] MEDICAID [id number] 2020 00:00:00 [facility] MEDICARE [place] [id number] 2006 00:00:00 [facility] JODY GUILLORY PLS O [id number] 2019 00:00:00 2020 00:00:00 Problems Condition Name Condition Details Condition Category Status Onset Date Resolution Date Last Treatment Date Treating Clinician Comments Source Right ankle pain Right ankle pain Disease Active 05-15 00:00: 00 [facility] Encounter for sterilizat ion Encounter for sterilizat ion Disease Active 01-16 00:00: 00 [facility] Lupus Lupus Problem [facility] [id number] Body mass index [BMI] 35.0-35.9, adult Problem [facility] [id number] Morbid (severe) obesity due to excess calories Problem [facility] [id number] Uncomplica olivia opioid dependence Problem [facility] [id number] Current moderate episode of major depressive disorder without prior episode Problem [facility] [id number] Bipolar affective disorder, currently depressed, moderate Problem [facility] [id number] Primary insomnia Problem [facility] [id number] SPENCER (generaliz ed anxiety disorder) Problem [facility] [id number] Ulcerative colitis with complicati on, unspecifie d location Problem [facility] [id number] Chronic fatigue Problem [facility] [id number] Gastroesop hageal reflux disease without esophagiti s Problem [facility] [id number] Migraine without aura and without status migrainosu s, not intractabl e Problem [facility] [id number] Other chronic pain Problem [facility] [id number] DDD (degenerat bandar disc disease), lumbar Problem [facility] [id number] Vitamin D deficiency Problem [facility] [id number] Systemic lupus erythemato heather, unspecifie d SLE type, unspecifie d organ involvemen t status Problem [facility] Allergies, Adverse Reactions, Alerts Allergy Name Allergy Type Status Severity Reaction(s) Onset Date Inactive Date Treating Clinician Comments Source NO KNOWN ALLERGIE S Drug Class Active [facility] Family History Family Member Diagnosis Comments Start Date Stop Date Sourc e Natural [facility] Natural father Other - see comments [facility] Maternal Aunt [facility] Maternal grandmother Lung Cancer [facility] Social History Social Habit Start Date Stop Date Quantity Comments Source History of Tobacco Use [facility] Sex Assigned At [facility] Gender identity [facility] Alcoholic beverage intake 2023-11-07 00:00:00 2023-11-07 00:00:00 0 /d [facility] Alcohol intake 2023-11-07 00:00:00 2023-11-07 00:00:00 0 /d [facility] Exposure to SARS-CoV-2 (event) 2022-11-25 00:00:00 2022-12-05 14:43:00 Not sure [facility] History of Social function 2022-12-05 00:00:00 2022-12-05 00:00:00 [facility] Tobacco use and exposure 2016-05-15 00:00:00 2016-05-15 00:00:00 Smokeless tobacco non-user [facility] Smoking Status Start Date Stop Date Source Never smoked tobacco [facility] Medications Ordered Medication Name Filled Medication Name Start Date Stop Date Current Medication? Ordering Clinician Indication Dosage Frequency Signature (SIG) Comments Components Source Potassium Chloride 20 MEQ Potassium Chloride 20 MEQ 12-05 00:00: 00 No 1{packe t_with_ food} QD Potassium Chloride 20 MEQ Levsin 0.125 MG Levsin 0.125 MG 12-05 00:00: 00 No 1{table t_as_ne eded} Levsin 0.125 MG ondansetron 4 mg disintegrat ing tablet 14 00:00: 00 11-10 04:59 :00 No [id number] 8mg Take 2 tablets by mouth every 8 (eight) hours as needed for Nausea and Vomiting (N/V) for up to 3 days. [facility] methylpredn isolone sod succ (SOLU-MEDRO L) injection 125 mg 10-22 18:15: 00 10-22 17:29 :00 No 125mg 125 mg, Intramuscu lar, ONCE, 1 dose, On Sat10/22/23 at 1215, TOY [facility] predniSONE 20 mg tablet 10-22 00:00: 00 Yes [id number] 1 PO BID x 4 days [facility] methylPREDN ISolone 4 mg tablets 2022-08 00:00: 00 Yes [id number] Take by mouth SEE-INSTRU CTIONS. follow package directions [facility] methylpredn isolone sod succ (SOLU-MEDRO L) injection 125 mg 2022-08 20:30: 00 08-15 20:02 :00 No 125mg 125 mg, Intravenou s, ONCE, 1 dose, On Sat08/15/23 at 1430, Routine [facility] oseltamivir (TAMIFLU) 75 mg capsule 2022-08 00:00: 00 07-07 05:59 :00 No [id number] 75mg Take 1 capsule by mouth in the morning and 1 capsule in the evening. Do all this for 5 days. [facility] cephALEXin (KEFLEX) 500 mg capsule 2022-08 00:00: 00 07-06 05:59 :00 No [id number] 500mg Take 1 capsule by mouth 4 (four) times daily for 10 days. [facility] belimumab (BENLYSTA) 200 mg/mL AtIn 2022-08 17:41: 24 Yes INJECT 200MG SUBCUTANEO USLY ONCE A WEEK [facility] ondansetron 4 mg disintegrat ing tablet 2022-08 00:00: 00 11-06 00:00 :00 No [id number] 4mg Take 1 tablet by mouth every 12 (twelve) hours as needed for Nausea and Vomiting (N/V). [facility] dicyclomine 10 mg capsule 9-07 00:00: 05-10 04:59 :00 No [id number] 10mg Take 1 capsule by mouth 4 (four) times daily for 7 days. [facility] ondansetron 4 mg disintegrat ing tablet 9-07 00:00: 00 05-08 04:59 :00 No [id number] 4mg Take 1 tablet by mouth every 8 (eight) hours as needed for Nausea and Vomiting (N/V) for up to 5 days. [facility] proMETHazin e (PHENERGAN) tablet 25 mg 02-16 00:45: 00 02-16 00:31 :00 No 25mg 25 mg, Oral, ONCE, 1 dose, On Sat02/15/23 at 1945, TOY [facility] iopamidol (ISOVUE 370-500 mL) injection 80 mL 02-15 23:15: 00 02-15 23:15 :00 No [id number] 80mL 80 mL, Intravenou s, ONCE, 1 dose, On Sat02/15/23 at 1815, Routine [facility] NaCl 0.9% (NS) bolus infusion 1,000 mL 02-15 22:45: 00 02-16 01:36 :00 No 1000mL at 999 mL/hr, 1,000 mL, IV Infusion, ONCE, 1 dose, On Sat02/15/23 at 1745, STAT [facility] proMETHazin e 25 mg tablet 02-15 00:00: 00 Yes [id number] 25mg Take 1 tablet by mouth every 4 (four) hours as needed for Nausea and Vomiting (N/V). [facility] dicyclomine 10 mg capsule 4-12 00:00: 00 04-02 00:00 :00 No [id number] 10mg Take 1 capsule by mouth 4 (four) times daily. [facility] Kenalog (Triamcinol one) Kenalog (Triamcinol one) 2021-08 1- 00:00: 00 No 40mg [facility] hydroxychlo roquine sulfate (PLAQUENIL ORAL) 2021-08 11:33: 32 Yes Take by mouth. [facility] proMETHazin e 25 mg tablet 2021-08 00:00: 00 04-02 00:00 :00 No [id number] 25mg Take 1 tablet by mouth every 6 (six) hours as needed for Nausea and Vomiting (N/V). [facility] proMETHazin e 25 mg tablet 01-16 00:00: 00 01-22 04:59 :00 No [id number] 25mg Take 1 tablet by mouth every 6 (six) hours for 5 days. [facility] ondansetron (ZOFRAN (PF)) injection 4 mg 01-05 17:00: 01-05 16:46 :00 No 4mg 4 mg, Slow IV Push, ONCE, 1 dose, On Sat01/05/22 at 1200, TOY [facility] ketorolac tromethamin e (TORADOL) injection 15 mg 01-05 17:00: 01-05 17:00 :00 No 15mg 15 mg, Slow IV Push, ONCE, 1 dose, On Sat01/05/22 at 1200, TOY [facility] docusate 100 mg capsule 01-05 00:00: 00 02-05 04:59 :00 No [id number] 100mg Take 1 capsule by mouth daily for 30 days. [facility] polyethylen e glycol 3350 (MIRALAX) 17 gram/dose powder 01-05 00:00: 00 01-11 04:59 :00 No [id number] 17g Take 17 g by mouth 2 (two) times daily for 5 days. [facility] sennosides (SENOKOT) 8.6 mg tablet 01-05 00:00: 00 01-11 04:59 :00 No [id number] 8.6mg Take 1 tablet by mouth daily for 5 days. [facility] hydroxychlo roquine sulfate (PLAQUENIL ORAL) 03-09 19:46: 21 Yes Take by mouth. [facility] proMETHazin e 25 mg suppository 715 00:00: 00 04-02 00:00 :00 No [id number] 25mg Insert 1 Suppositor y into rectum every 4 (four) hours as needed for Nausea and Vomiting (N/V). [facility] naproxen sodium (ANAPROX DS) 550 mg tablet 12-06 00:00: 00 04-02 00:00 :00 No [id number] 550mg Take 1 tablet by mouth 2 (two) times daily with meals. [facility] methylPREDN ISolone (MEDROL, HERMAN,) 4 mg tablets 12-06 00:00: 00 04-02 00:00 :00 No [id number] Take by mouth SEE-INSTRU CTIONS. follow package directions [facility] topiramate 100 mg tablet 10-27 15:41: 01 Yes topiramate 100 mg tablet Take 1 tablet every day by oral route in the morning for 28 days. [facility] HYDROcodone -acetaminop hen (NORCO 5) 5-325 mg tablet 2018-08 13:34: 10 Yes 1{tbl} Take 1 tablet by mouth 2 (two) times daily. [facility] tiZANidine 4 mg capsule 2018-08 13:34: 10 Yes 4mg Take 4 mg by mouth 3 (three) times daily. [facility] phentermine 37.5 mg tablet 2018-08 13:34: 10 Yes 37.5mg Take 37.5 mg by mouth daily with breakfast. [facility] zolpidem (AMBIEN) 10 mg tablet 2018-08 13:34: 10 Yes 10mg Take 10 mg by mouth at bedtime as needed for Insomnia. [facility] SUMAtriptan (IMITREX) 50 mg tablet 2018-08 13:34: 10 Yes Imitrex 50 mg tablet Take 1 tablet every day by oral route as needed for 30 days. [facility] IBUPROFEN 400 mg tablet 17 00:00: 00 12-05 00:00 :00 No 400mg Take 1 tablet by mouth every 6 (six) hours as needed for Pain (scale 1-3). [facility] omeprazole (PRILOSEC) 40 mg capsule 01-09 00:00: 00 12-05 00:00 :00 No 40mg Take 1 capsule by mouth daily. [facility] Vraylar 6 MG Vraylar 6 MG [...] Plaquenil 200 MG No Plaquenil 200 MG Immunizations Ordered Immunization Name Filled Immunization Name Date Status Comments Source Adacel (Tdap) Adacel (Tdap) 2020-08-25 15:49:00 Completed [facility] Adacel (Tdap) Adacel (Tdap) 2020-08-25 15:49:00 Completed [facility] Adacel (Tdap) Adacel (Tdap) 2020-08-25 15:49:00 Completed [facility] Adacel (Tdap) Adacel (Tdap) 2020-08-25 15:49:00 Completed [facility] Adacel (Tdap) Adacel (Tdap) 2020-08-25 15:49:00 Completed [facility] Adacel (Tdap) Adacel (Tdap) 2020-08-25 15:49:00 Completed [facility] Adacel (Tdap) Adacel (Tdap) 2020-08-25 15:49:00 Completed [facility] Adacel (Tdap) Adacel (Tdap) 2020-08-25 15:49:00 Completed [facility] Adacel (Tdap) Adacel (Tdap) 2020-08-25 15:49:00 Completed [facility] Adacel (Tdap) Adacel (Tdap) 2020-08-25 15:49:00 Completed [facility] TDAP 2019-01-26 00:00:00 Completed [facility] TDAP 2019-01-26 00:00:00 Completed [facility] TDAP 2019-01-26 00:00:00 Completed [facility] TDAP 2019-01-26 00:00:00 Completed [facility] TDAP 2019-01-26 00:00:00 Completed [facility] TDAP 2019-01-26 00:00:00 Completed [facility] TDAP 2019-01-26 00:00:00 Completed [facility] TDAP 2019-01-26 00:00:00 Completed [facility] TDAP 2019-01-26 00:00:00 Completed [facility] TDAP 2019-01-26 00:00:00 Completed [facility] TDAP 2019-01-26 00:00:00 Completed [facility] Adacel (Tdap) Ad[facility]Tdap) [facility] Adacel (Tdap) Unknown Completed [facility] TDAP Unknown Completed [facility] TDAP Unknown Completed [facility] TDAP Unknown Completed [facility] TDAP Unknown Completed [facility] TDAP Unknown Completed [facility] TDAP Unknown Completed [facility] TDAP Unknown Completed [facility] TDAP Unknown Completed [facility] TDAP Unknown Completed [facility] TDAP Unknown Completed [facility] TDAP Unknown Completed [facility] TDAP Unknown Completed [facility] TDAP Unknown Completed [facility] Vital Signs Vital Name Observation Time Observation Value Comments S jama Systolic blood pressure 2023-11-07 23:23:00 113 mm[Hg] [facility] Diastolic blood pressure 2023-11-07 23:23:00 72 mm[Hg] [facility] Heart rate 2023-11-07 23:22:00 100 /min [facility] Body temperature 2023-11-07 23:22:00 36.94 [facility] Respiratory rate 2023-11-07 23:22:00 20 /min [facility] Body height 2023-11-07 23:22:[address] [facility] Body weight 2023-11-07 23:22:[address] [facility] BMI 2023-11-07 23:22:00 37.28 kg/m2 [facility] Oxygen saturation in Arterial blood by Pulse oximetry 2023-11-07 23:22:00 99 /min [facility] Systolic blood pressure 2023-10-22 16:38:00 144 mm[Hg] [facility] Diastolic blood pressure 2023-10-22 16:38:00 93 mm[Hg] [facility] Heart rate 2023-10-22 16:38:00 110 /min [facility] Body temperature 2023-10-22 16:38:00 36.67 [facility] Respiratory rate 2023-10-22 16:38:00 22 /min [facility] Body weight 2023-10-22 16:38:[address] [facility] BMI 2023-10-22 16:38:00 36.13 kg/m2 [facility] Oxygen saturation in Arterial blood by Pulse oximetry 2023-10-22 16:38:00 100 /min [facility] Systolic blood pressure 2023-08-15 20:02:00 121 mm[Hg] [facility] Diastolic blood pressure 2023-08-15 20:02:00 80 mm[Hg] [facility] Heart rate 2023-08-15 20:02:00 89 /min [facility] Body temperature 2023-08-15 20:02:00 36.89 [facility] Respiratory rate 2023-08-15 20:02:00 13 /min [facility] Oxygen saturation in Arterial blood by Pulse oximetry 2023-08-15 19:02:00 100 /min [facility] Body height 2023-08-15 17:17:00 152.4 cm [facility] Body weight 2023-08-15 17:17:00 83.915 kg [facility] BMI 2023-08-15 17:17:00 36.13 kg/m2 [facility] Systolic blood pressure 2023-07-01 20:04:00 119 mm[Hg] [facility] Diastolic blood pressure 2023-07-01 20:04:00 80 mm[Hg] [facility] Heart rate 2023-07-01 20:04:00 96 /min [facility] Body temperature 2023-07-01 20:04:00 37.28 [facility] Respiratory rate 2023-07-01 20:04:00 17 /min [facility] Body height 2023-07-01 20:04:[address] [facility] Body weight 2023-07-01 20:04:[address] [facility] BMI 2023-07-01 20:04:00 38.65 kg/m2 [facility] Oxygen saturation in Arterial blood by Pulse oximetry 2023-07-01 20:04:00 99 /min [facility] Systolic blood pressure 2023-07-01 17:29:00 128 mm[Hg] [facility] Diastolic blood pressure 2023-07-01 17:29:00 99 mm[Hg] [facility] Heart rate 2023-07-01 17:29:00 105 /min [facility] Body temperature 2023-07-01 17:29:00 37.11 [facility] Respiratory rate 2023-07-01 17:29:00 16 /min [facility] Body height 2023-07-01 17:29:00 152.4 cm [facility] Body weight 2023-07-01 17:29:00 87.091 kg [facility] BMI 2023-07-01 17:29:00 37.50 kg/m2 [facility] Oxygen saturation in Arterial blood by Pulse oximetry 2023-07-01 17:29:00 100 /min [facility] Systolic blood pressure 2023-06-25 16:01:00 138 mm[Hg] [facility] Diastolic blood pressure 2023-06-25 16:01:00 83 mm[Hg] [facility] Heart rate 2023-06-25 16:01:00 108 /min [facility] Body temperature 2023-06-25 16:01:00 36.44 [facility] Respiratory rate 2023-06-25 16:01:00 20 /min [facility] Body height 2023-06-25 16:01:00 152.4 cm [facility] Body weight 2023-06-25 16:01:[address] [facility] BMI 2023-06-25 16:01:00 39.33 kg/m2 [facility] Oxygen saturation in Arterial blood by Pulse oximetry 2023-06-25 16:01:00 97 /min [facility] Systolic blood pressure 2023-06-17 22:06:00 133 mm[Hg] [facility] Diastolic blood pressure 2023-06-17 22:06:00 82 mm[Hg] [facility] Heart rate 2023-06-17 22:06:00 84 /min [facility] Body temperature 2023-06-17 22:06:00 36.61 [facility] Respiratory rate 2023-06-17 22:06:00 17 /min [facility] Body height 2023-06-17 22:06:00 152.4 cm [facility] Body weight 2023-06-17 22:06:00 86.183 kg [facility] BMI 2023-06-17 22:06:00 37.11 kg/m2 [facility] Oxygen saturation in Arterial blood by Pulse oximetry 2023-06-17 22:06:00 98 /min [facility] Systolic blood pressure 2023-05-02 21:58:00 131 mm[Hg] [facility] Diastolic blood pressure 2023-05-02 21:58:00 83 mm[Hg] [facility] Heart rate 2023-05-02 21:58:00 100 /min [facility] Body temperature 2023-05-02 21:58:00 36.17 [facility] Respiratory rate 2023-05-02 21:58:00 16 /min [facility] Body height 2023-05-02 21:58:00 152.4 cm [facility] Body weight 2023-05-02 21:58:00 89.54 kg [facility] BMI 2023-05-02 21:58:00 38.55 kg/m2 [facility] Oxygen saturation in Arterial blood by Pulse oximetry 2023-05-02 21:58:00 96 /min [facility] Systolic blood pressure 2023-04-02 18:16:00 122 mm[Hg] [facility] Diastolic blood pressure 2023-04-02 18:16:00 88 mm[Hg] [facility] Heart rate 2023-04-02 18:16:00 101 /min [facility] Body temperature 2023-04-02 18:16:00 36.83 [facility] Respiratory rate 2023-04-02 18:16:00 18 /min [facility] Body height 2023-04-02 18:16:00 154.9 cm [facility] Body weight 2023-04-02 18:16:00 86.909 kg [facility] BMI 2023-04-02 18:16:00 36.20 kg/m2 [facility] Oxygen saturation in Arterial blood by Pulse oximetry 2023-04-02 18:16:00 98 /min [facility] Systolic blood pressure 2023-02-16 02:40:00 132 mm[Hg] [facility] Diastolic blood pressure 2023-02-16 02:40:00 72 mm[Hg] [facility] Heart rate 2023-02-16 02:40:00 84 /min [facility] Respiratory rate 2023-02-16 02:40:00 16 /min [facility] Oxygen saturation in Arterial blood by Pulse oximetry 2023-02-16 02:40:00 98 /min [facility] Body temperature 2023-02-15 19:39:00 36.78 [facility] Body height 2023-02-15 19:39:[address] [facility] Body weight 2023-02-15 19:39:[address] [facility] BMI 2023-02-15 19:39:00 36.09 kg/m2 [facility] Systolic blood pressure 2022-12-05 19:51:00 126 mm[Hg] [facility] Diastolic blood pressure 2022-12-05 19:51:00 83 mm[Hg] [facility] Heart rate 2022-12-05 19:51:00 92 /min [facility] Body temperature 2022-12-05 19:51:00 36.61 [facility] Respiratory rate 2022-12-05 19:51:00 16 /min [facility] Body height 2022-12-05 19:51:[address] [facility] Body weight 2022-12-05 19:51:[address] [facility] BMI 2022-12-05 19:51:00 38.68 kg/m2 [facility] Oxygen saturation in Arterial blood by Pulse oximetry 2022-12-05 19:51:00 96 /min [facility] height 2022-07-04 08:20:00 61 [in_i] [facility] weight 2022-07-04 08:20:00 191.5 [lb_av] [facility] temperature 2022-07-04 08:20:00 97.2 [degF] [facility] bmi 2022-07-04 08:20:00 36.18 kg/m2 [facility] oximetry 2022-07-04 08:20:00 99 % [facility] respiratory rate 2022-07-04 08:20:00 18 /min [facility] blood pressure systolic 2022-07-04 08:20:00 115 mm[Hg] [facility] blood pressure diastolic 2022-07-04 08:20:00 71 mm[Hg] [facility] Systolic blood pressure 2022-05-30 16:35:00 133 mm[Hg] [facility] Diastolic blood pressure 2022-05-30 16:35:00 89 mm[Hg] [facility] Heart rate 2022-05-30 16:35:00 116 /min [facility] Body temperature 2022-05-30 16:35:00 36.89 [facility] [facility] Res[facility] rate 2022-05-30 16:35:00 18 /min [facility] Body height 2022-05-30 16:35:[address] [facility] Body weight 2022-05-30 16:35:[address] [facility] BMI 2022-05-30 16:35:00 38.32 kg/m2 [facility] Oxygen saturation in Arterial blood by Pulse oximetry 2022-05-30 16:35:00 100 /min [facility] height 2022-03-14 13:50:00 61 [in_i] [facility] weight 2022-03-14 13:50:00 189 [lb_av] [facility] temperature 2022-03-14 13:50:00 97.6 [degF] [facility] bmi 2022-03-14 13:50:00 35.71 kg/m2 [facility] oximetry 2022-03-14 13:50:00 100 % [facility] respiratory rate 2022-03-14 13:50:00 16 /min [facility] blood pressure systolic 2022-03-14 13:50:00 132 mm[Hg] [facility] blood pressure diastolic 2022-03-14 13:50:00 73 mm[Hg] [facility] height 2022-03-14 13:40:00 61 [in_i] [facility] weight 2022-03-14 13:40:00 189 [lb_av] [facility] temperature 2022-03-14 13:40:00 97.6 [degF] [facility] bmi 2022-03-14 13:40:00 35.71 kg/m2 [facility] oximetry 2022-03-14 13:40:00 100 % [facility] respiratory rate 2022-03-14 13:40:00 16 /min [facility] blood pressure systolic 2022-03-14 13:40:00 132 mm[Hg] [facility] blood pressure diastolic 2022-03-14 13:40:00 73 mm[Hg] [facility] Systolic blood pressure 2022-01-16 20:40:00 135 mm[Hg] [facility] Diastolic blood pressure 2022-01-16 20:40:00 87 mm[Hg] [facility] Heart rate 2022-01-16 20:40:00 98 /min [facility] Body temperature 2022-01-16 20:40:00 36.5 [facility] Respiratory rate 2022-01-16 20:40:00 16 /min [facility] Body height 2022-01-16 20:40:[address] [facility] Body weight 2022-01-16 20:40:[address] [facility] BMI 2022-01-16 20:40:00 36.07 kg/m2 [facility] Oxygen saturation in Arterial blood by Pulse oximetry 2022-01-16 20:40:00 99 /min [facility] Systolic blood pressure 2022-01-05 15:50:00 158 mm[Hg] [facility] Diastolic blood pressure 2022-01-05 15:50:00 89 mm[Hg] [facility] Heart rate 2022-01-05 15:50:00 101 /min [facility] Body temperature 2022-01-05 15:50:00 37.06 [facility] Respiratory rate 2022-01-05 15:50:00 18 /min [facility] Body height 2022-01-05 15:50:[address] [facility] Body weight 2022-01-05 15:50:[address] [facility] BMI 2022-01-05 15:50:00 33.07 kg/m2 [facility] Oxygen saturation in Arterial blood by Pulse oximetry 2022-01-05 15:50:00 100 /min [facility] height 2021-12-13 16:20:00 61 [in_i] [facility] weight 2021-12-13 16:20:00 170 [lb_av] [facility] temperature 2021-12-13 16:20:00 98.2 [degF] [facility] bmi 2021-12-13 16:20:00 32.12 kg/m2 [facility] blood pressure systolic 2021-12-13 16:20:00 125 mm[Hg] [facility] blood pressure diastolic 2021-12-13 16:20:00 74 mm[Hg] [facility] height 2021-09-06 16:30:00 61 [in_i] [facility] weight 2021-09-06 16:30:00 169 [lb_av] [facility] temperature 2021-09-06 16:30:00 97 [degF] [facility] bmi 2021-09-06 16:30:00 31.93 kg/m2 [facility] blood pressure systolic 2021-09-06 16:30:00 128 mm[Hg] [facility] blood pressure diastolic 2021-09-06 16:30:00 72 mm[Hg] [facility] height 2021-06-06 15:50:00 61 [in_i] [facility] weight 2021-06-06 15:50:00 170 [lb_av] [facility] temperature 2021-06-06 15:50:00 98 [degF] [facility] bmi 2021-06-06 15:50:00 32.12 kg/m2 [facility] blood pressure systolic 2021-06-06 15:50:00 130 mm[Hg] [facility] blood pressure diastolic 2021-06-06 15:50:00 70 mm[Hg] [facility] Systolic blood pressure 2021-05-15 20:07:00 140 mm[Hg] [facility] Diastolic blood pressure 2021-05-15 20:07:00 90 mm[Hg] [facility] Heart rate 2021-05-15 20:07:00 105 /min [facility] Body height 2021-05-15 20:07:[address] [facility] Body weight 2021-05-15 20:07:[address] [facility] BMI 2021-05-15 20:07:00 31.18 kg/m2 [facility] Systolic blood pressure 2023-11-07 23:23:00 113 mm[Hg] [facility] Diastolic blood pressure 2023-11-07 23:23:00 72 mm[Hg] [facility] Heart rate 2023-11-07 23:22:00 100 /min [facility] Body temperature 2023-11-07 23:22:00 36.94 [facility] Respiratory rate 2023-11-07 23:22:00 20 /min [facility] Body height 2023-11-07 23:22:[address] [facility] Body weight 2023-11-07 23:22:[address] [facility] BMI 2023-11-07 23:22:00 37.28 kg/m2 [facility] Oxygen saturation in Arterial blood by Pulse oximetry 2023-11-07 23:22:00 99 /min [facility] Procedures Procedure Date / Time Performed Performing Clinicia n Source POCT SARS-COV-2 ANTIGEN (BINAX NOW) 2023-11-07 23:53:00 Ledy Liz [facility] POCT MOLECULAR FLU 2023-11-07 23:33:00 Unknown, Attend ing [facility] POCT MOLECULAR STREP 2023-11-07 23:29:00 Unknown, Atte mableing [facility] CONSENT/REFUSAL FOR DIAGNOSIS AND TREATMENT 2023-10-22 16:32:06 Doctor Unassigned, Negley [facility] MAGNESIUM 2023-08-15 18:27:00 Hkaan Conti [facility] TROPONIN I 2023-08-15 18:27:00 [facility] COMP. METABOLIC PANEL (00538) 2023-08-15 18:27:00 Hakan Conti [facility] CBC WITH DIFF 2023-08-15 18:27:[address] [facility] URINALYSIS 2023-08-15 18:27:00 [facility] N-TERMINAL PRO-BNP 2023-08-15 18:27:00 Hakan Conti [facility] XR CHEST 1 VW 2023-08-15 18:24:[address] [facility] CONSENT/REFUSAL FOR DIAGNOSIS AND TREATMENT 2023-08-15 17:06:55 Doctor Unassigned, Negley [facility] POCT SARS-COV-2 ANTIGEN (BINAX NOW) 2023-07-01 20:15:00 Natalia Vásquez [facility] POCT MOLECULAR FLU 2023-07-01 20:11:00 Unknown, Attend ing [facility] POCT MOLECULAR STREP 2023-07-01 20:09:00 Unknown, Atte francisco [facility] ASSIGNMENT OF BENEFITS 2023-07-01 18:30:35 Docto r Unassigned, Negley [facility] CONSENT/REFUSAL FOR DIAGNOSIS AND TREATMENT 2023-07-01 17:25:30 Doctor Unassigned, Negley [facility] ASSIGNMENT OF BENEFITS 2023-06-25 15:32:57 Docto r Unassigned, Negley [facility] POCT SARS-COV-2 ANTIGEN (BINAX NOW) 2023-06-17 22:11:00 Melissa Yancey [facility] POCT SARS-COV-2 ANTIGEN (BINAX NOW) 2023-05-02 22:10:00 Natalia Vásquez [facility] POCT SARS-COV-2 ANTIGEN (BINAX NOW) 2023-04-02 18:54:00 Lv Wolf [facility] CT ABDOMEN PELVIS W CONTRAST 2023-02-15 22:28:42 Hakan Conti [facility] LIPASE 2023-02-15 21:08:00 Hakan Conti [facility] MAGNESIUM 2023-02-15 21:08:00 Hakan Conti [facility] TROPONIN I 2023-02-15 21:08:00 Hakan Conti [facility] COMP. METABOLIC PANEL (69412) 2023-02-15 21:08:00 Hakan Conti [facility] CBC WITH DIFF 2023-02-15 21:08:00 [facility] 2023-02-15 21:08:00 Hakan Conti [facility] ASSIGNMENT OF BENEFITS 2023-02-15 20:57:48 Docto r Unassigned, Negley [facility] NOTICE OF PRIVACY PRACTICES 2023-02-15 19:28:07 Doctor Unassigned, Negley [facility] CONSENT/REFUSAL FOR DIAGNOSIS AND TREATMENT 2023-02-15 19:27:07 Doctor Unassigned, Negley [facility] POCT SARS-COV-2 ANTIGEN (BINAX NOW) 2022-12-05 20:09:00 Arcenio Napoles [facility] PATIENT FINANCIAL POLICY 2022-12-05 19:44:23 Doctor Unassigned, Negley [facility] ASSIGNMENT OF BENEFITS 2022-05-30 16:28:29 Docto r Unassigned, Negley [facility] CT ABDOMEN PELVIS WO CONTRAST 2022-01-05 17:20:35 [facility] XR KUB 2022-01-05 16:21:08 [facility] POCT TEST 2022-01-05 16:08:00 [facility] LIPASE 2022-01-05 16:06:00 Carlos [facility] HEPATIC FUNCTION PANEL ([id number]) (ALB,T.PRO,BILI T,BU/BC,ALT,AST,ALK PHOS) 2022-01-05 16:06:00 [facility] BASIC METABOLIC PANEL (NA, K, CL, CO2, GLUCOSE, BUN, CREATININE, CA) 2022-01-05 16:06:00 [facility] CBC WITH DIFF 2022-01-05 16:06:00 Gary Gonzalez [facility] URINALYSIS 2022-01-05 16:06:00 Carlos [facility] CONSENT/REFUSAL FOR DIAGNOSIS AND TREATMENT 2022-01-05 15:43:39 Doctor Unassigned, Negley [facility] BI SCREENING MAMMOGRAM BILATERAL 2019-06-24 14:48:00 Fidencio Khan [facility] Encounters Start Date/Time End Date/Time Encounter Type Admission Type Attending [facility] Care Facility Care Department Encounter ID Source 2023-12-04 09:13:[address] [facility] [id number] [facility] 2023-09-03 09:33:00 Outpatient Higgins, Prakash [facility]MLC [facility] [id number] [facility] 2022-10-03 08:13:00 Outpatient Higgins, Prakash STLMLC [facility] [id number] [facility] 2022-07-02 10:13:01 Outpatient Higgins, Prakash STLMLC ST[facility] [id number] [facility] 2022-06-12 09:17:00 Outpatient Higgins, Prakash STLMLC ST[facility] [id number] [facility] 2021-09-20 14:00:52 Outpatient Higgins, Prakash STLMLC ST[facility]C [id number] [facility] 2021-09-20 13:53:20 Outpatient Higgins, Prakash STLMLC STL[facility]C [id number] [facility] 2021-09-20 13:19:51 Outpatient Higgins, Prakash STLMLC ST[facility]C [id number] [facility] 2021-09-20 13:14:31 Outpatient Higgins, Prakash STLMLC ST[facility] [id number] [facility] 2021-09-20 12:50:04 Outpatient Higgins, Prakash [facility]MLC [facility] [id number] [facility] 2021-09-20 12:48:36 Outpatient Higgins, Prakash STLMLC STLMLC [id number] [facility] 2021-06-26 17:19:59 Emergency [facility] [id number] [facility] 2021-06-26 08:32:13 Emergency [facility] [id number] [facility] 2021-06-26 02:13:21 Emergency [facility] [id number] [facility] 2021-06-25 21:06:07 Emergency [facility] [id number] [facility] 2021-06-25 12:29:01 Emergency [facility] [id number] [facility] 2021-06-25 01:51:21 Emergency [facility] [id number] [facility] 2024-02-13 00:00:00 2024-02-13 00:00:00 (TEL) [facility] [id number] [facility] 2023-11-07 18:00:00 2023-11-07 19:32:26 Outpatient R CRISTEL VARGAS SHAHNAZ [facility] [id number] [facility] 2023-11-07 18:00:00 2023-11-07 19:32:26 Urgent Care Cristel Vargas Unknown, Attending [facility] 1..840.114 350.1.13.10 4.2.7.2.686 [id number] [facility] 2023-10-22 10:39:00 2023-10-22 11:53:00 Emergency X SITAHakan [facility] ERT [id number] [facility] 2023-10-22 10:39:00 2023-10-22 11:53:00 Emergency Hakan Conti [facility] 1.2.840.114 350.1.13.10 4.2.7.2.686 [id number] [facility] 2023-08-16 00:00:00 2023-08-16 00:00:00 (TEL) [facility]C [facility] [id number] [facility] 2023-08-15 11:19:00 2023-08-15 14:44:00 Emergency X SITAHakan [facility] ERT [id number] [facility] 2023-08-15 11:19:00 2023-08-15 14:44:00 Emergency Sita, K [facility] 1.2.840.114 350.1.13.10 4.2.7.2.686 [id number] [facility] 2023-07-11 00:00:00 2023-07-11 00:00:00 Patient Secure Msg Doctor Unassigned, Negley [facility] 1..114 350.1.13.10 4.2.7.2.686 [id number] [facility] 2023-07-01 13:20:00 2023-07-01 14:19:25 Outpatient R MARYANN LV [facility] [id number] [facility] 2023-07-01 13:20:00 2023-07-01 14:19:25 Urgent Care Bridget Wolflakhwindershea Unknown, Attending [facility] 1.84.114 350.1.13.10 4.2.7.2.686 [id number] [facility] 2023-07-01 11:30:00 2023-07-01 13:18:00 Emergency X YANA HAWTHORNE TIMOTHY [facility] ERT [id number] [facility] 2023-07-01 11:30:00 2023-07-01 13:18:00 Emergency Yana Hawthorne [facility] 1.84.114 350.1.13.10 4.2.7.2.686 [id number] [facility] 2023-06-25 10:40:00 2023-06-25 11:52:18 Outpatient R NATALIA VÁSQUEZ [facility] [id number] [facility] 2023-06-25 10:40:00 2023-06-25 11:00:00 Urgent Care Natalia Vásquez Unknown, Attending [facility] 1.84.114 350.1.13.10 4.2.7.2.686 [id number] [facility] 2023-06-25 00:00:00 2023-06-25 00:00:00 Orders Only Doctor Unassigned, Negley [facility] 1.2840.114 350.1.13.10 4.2.7.2.686 [id number] [facility] 2023-06-18 00:00:00 2023-06-18 00:00:00 Letter (Out) Etta Solares [facility] 1.84.114 350.1.13.10 4.2.7.2.686 [id number] [facility] 2023-06-17 17:00:00 2023-06-17 17:30:14 Outpatient R MELISSA YANCEY [facility] [id number] [facility] 2023-06-17 17:00:00 2023-06-17 17:30:14 Urgent Care Melissa Yancey Unknown, Attending [facility] 1.840.114 350.1.13.10 4.2.7.2.686 [id number] [facility] 2023-06-17 16:45:00 2023-06-17 16:45:00 Outpatient R UNKNOWN, ATTENDING [facility] [id number] [facility] 2023-06-17 00:00:00 2023-06-17 00:00:00 (TEL) [facility] [id number] [facility] 2023-05-02 16:40:00 2023-05-02 17:00:00 Urgent Care Natalia Vásquez Unknown, Attending [facility] 1..840.114 350.1.13.10 4.2.7.2.686 [id number] [facility] 2023-05-02 16:40:00 2023-05-02 16:40:00 Outpatient R NATALIA VÁSQUEZ [facility] [id number] [facility] 2023-05-02 00:00:00 2023-05-02 00:00:00 Letter (Out) Natalia Vásquez [facility] 1..840.114 350.1.13.10 4.2.7.2.686 [id number] [facility] 2023-04-02 12:40:00 2023-04-02 14:01:19 Outpatient R LV WOLF [facility] [id number] [facility] 2023-04-02 12:40:00 2023-04-02 14:01:19 Urgent Care Lv Wolf Unknown, Attending [facility] 1.840.114 350.1.13.10 4.2.7.2.686 [id number] [facility] 2023-02-15 14:40:00 2023-02-15 21:46:00 Emergency X Hakan CONTI [facility] ERT [id number] [facility] 2023-02-15 14:40:00 2023-02-15 21:46:00 Emergency Hakan Conti Barbara [facility] 1..840.114 350.1.13.10 4.2.7.2.686 [id number] [facility] 2022-12-05 14:40:00 2022-12-05 15:18:01 Outpatient R ARCENIO NAPOLES [facility] [id number] [facility] 2022-12-05 14:40:00 2022-12-05 15:18:01 Urgent Care Arcenio Napoles Unknown, Attending [facility] 1..840.114 350.1.13.10 4.2.7.2.686 [id number] [facility] 2022-12-05 00:00:00 2022-12-05 00:00:00 Orders Only Doctor Unassigned, Negley [facility] 1.2.840.114 350.1.13.10 4.2.7.2.686 [id number] [facility] 2022-07-04 00:00:00 2022-07-04 00:00:00 OFFICE VISIT ESTAB PT LEVEL 4 [facility] [id number] [facility] 2022-05-30 13:00:00 2022-05-30 13:20:00 Urgent Care Melissa Ynacey, [facility] 1.2.840.114 350.1.13.10 4.2.7.2.686 [id number] [facility] 2022-05-30 13:00:00 2022-05-30 13:00:00 Outpatient R MELISSA YANCEY [facility] [id number] [facility] 2022-05-30 00:00:00 2022-05-30 00:00:00 Orders Only Doctor Unassigned, Negley [facility] 1.2.840.114 350.1.13.10 4.2.7.2.686 [id number] [facility] 2022-05-03 00:00:00 2022-05-03 00:00:00 (TEL) [facility] [id number] [facility] 2022-03-14 00:00:00 2022-03-14 00:00:00 OFFICE VISIT ESTAB PT LEVEL 4 [facility] [id number] [facility] 2022-03-14 00:00:00 2022-03-14 00:00:00 (TEL) STLC STLC [id number] [facility] 2022-03-14 00:00:00 2022-03-14 00:00:[address] [facility] VISIT [facility] [id number] [facility] 2022-01-16 16:00:00 2022-01-16 16:03:05 Outpatient NATALIA DURAN [facility] [id number] [facility] 2022-01-16 16:00:00 2022-01-16 16:03:05 Urgent Care Natalia Vásquez [facility] 1..840.114 350.1.13.10 4.2.7.2.686 [id number] [facility] 2022-01-05 10:54:00 2022-01-05 13:07:00 Emergency X GARY GONZALEZ [facility] ERT [id number] [facility] 2022-01-05 10:54:00 2022-01-05 13:07:00 Emergency Gary Gonzalez [facility] 1..840.114 350.1.13.10 4.2.7.2.686 [id number] [facility] 2021-12-28 13:20:00 2021-12-28 13:20:00 Outpatient NATALIA DURAN [facility] [id number] [facility] 2021-12-13 00:00:00 2021-12-13 00:00:00 OFFICE VISIT ESTAB PT LEVEL 4 STLMLC STLC [id number] [facility] 2021-09-06 00:00:00 2021-09-06 00:00:00 OFFICE VISIT EST PT LEVEL 3 STLMLC STLMLC [id number] [facility] 2021-08-14 15:45:00 2021-08-14 16:00:00 Laboratory Only Only, [facility] 1..840.114 350.1.13.10 4.2.7.2.686 [id number] [facility] 2021-08-14 15:45:00 2021-08-14 15:54:14 Outpatient Chet BILLROSELINEFIDENCIO [facility] [id number] [facility] 2021-08-01 00:00:00 2021-08-01 00:00:00 (TEL) STLMLC [facility]C [id number] [facility] 2021-06-15 00:00:00 2021-06-15 00:00:00 (TEL) STLMLC [facility]C [id number] [facility] 2021-06-12 13:30:00 2021-06-12 13:30:00 Outpatient Chet HIDALGO JENNA [facility] [id number] [facility] 2021-06-06 00:00:00 2021-06-06 00:00:00 OFFICE VISIT ESTAB PT LEVEL 4 STLMLC STLMLC [id number] [facility] 2021-06-05 13:30:00 2021-06-05 13:30:00 Outpatient JENNA NG [facility] [id number] [facility] 2021-05-15 15:01:19 2021-05-15 15:16:19 Office Visit Sebastián [facility] 1.2.840.114 350.1.13.10 4.2.7.2.686 [id number] [facility] 2021-05-15 15:00:00 2021-05-15 15:00:00 Outpatient JENNA NG [facility] [id number] [facility] 2021-05-10 13:00:00 2021-05-10 13:00:00 Outpatient Chet HIDALGO [facility] [id number] [facility] 2021-04-19 15:25:00 2021-04-19 23:59:00 Hospital Encounter Sebastián [facility] Building 1.2.840.114 350.1.13.10 4.2.7.2.686 [id number] [facility] 2021-04-19 15:25:00 2021-04-19 23:59:00 Outpatient JENNA NG [facility] [id number] [facility] 2021-04-19 15:16:01 2021-04-19 17:12:29 Office Visit Jenna Hidalgo Craig L [facility] 1.2.840.114 350.1.13.10 4.2.7.2.686 [id number] [facility] 2021-02-21 00:00:00 2021-02-21 00:00:00 Outpatient STLMLC [facility]C [id number] [facility] 2021-02-21 00:00:00 2021-02-21 00:00:00 Outpatient STLMLC [facility]C [id number] [facility] 2021-02-08 00:00:00 2021-02-08 00:00:00 Outpatient STLMLC [facility]C [id number] [facility] 2021-02-06 00:00:00 2021-02-06 00:00:00 Outpatient STLMLC STLMLC [id number] [facility] 2021-01-20 08:30:00 2021-01-20 08:30:00 Outpatient JENNA NG [facility] [id number] [facility] 2021-01-02 00:00:00 2021-01-02 00:00:00 Outpatient STLMLC STLMLC [id number] [facility] 2020-12-21 13:30:00 2020-12-21 13:30:00 Outpatient CARLOS COLEY [facility] [id number] [facility] 2020-12-12 00:00:00 2020-12-12 00:00:00 Outpatient STLMLC [facility]C [id number] [facility] 2020-12-12 00:00:00 2020-12-12 00:00:00 Outpatient STLMLC [facility] [id number] [facility] 2020-12-06 09:33:00 2020-12-06 10:58:00 Emergency Boby Bal [facility] 1.2.840.114 350.1.13.10 4.2.7.2.686 [id number] 2020-11-29 00:00:00 2020-11-29 00:00:00 Outpatient STLMLC [facility]C [id number] [facility] 2020-11-10 00:00:00 2020-11-10 00:00:00 Patient Outreach Willy Grace [facility] 1.2.840.114 350.1.13.10 4.2.7.2.686 [id number] 2020-10-22 13:44:00 2020-10-22 16:22:00 Emergency Dionne Sierra [facility] 1.2.840.114 350.1.13.10 4.2.7.2.686 [id number] 2020-01-07 00:00:00 2020-01-07 00:00:00 Telephone Fidencio Khan [facility] 1.2840.114 350.1.13.10 4.2.7.2.686 [id number] 2019-11-03 00:00:00 2019-11-03 00:00:00 Telephone Kaylah Wolff [facility] 1.2840.114 350.1.13.10 4.2.7.2.686 [id number] 2019-11-02 15:39:02 2019-11-02 23:59:00 Outpatient R [facility] [id number] [facility] 2019-11-02 15:30:00 2019-11-02 23:59:00 Hospital Encounter [facility] 1.840.114 350.1.13.10 4.2.7.2.686 [id number] 2019-11-02 00:00:00 2019-11-02 00:00:00 Orders Only Doctor Unassigned, Neg[place] [facility] 1.2840.114 350.1.13.10 4.2.7.2.686 [id number] 2019-10-28 15:11:42 2019-10-28 15:59:11 Office Visit Kaylah Wolff [facility] 1.2840.114 350.1.13.10 4.2.7.2.686 [id number] 2019-10-28 15:20:00 2019-10-28 15:20:00 Outpatient R KAYLAH WOLFF [facility] [id number] [facility] 2019-10-26 16:50:10 2019-10-26 19:30:00 Emergency X KYLIE BALIP [facility] E[facility] [id number] [facility] 2019-05-18 12:49:44 2019-05-18 15:02:00 Emergency X [facility] ERT [id number] [facility] Results Test Description Test Time Test Comments Results Result Co mments Source [facility] Molecular Chk1747-89-26 23:44:58* Test Item Value Reference Range Interpretation Comme nts POCT Molecular FluA (test co de = 29939-4) Negative Negative POCT Molecular FluB (test co de = 36736-3) Negative Negative Lab Interpretation (test cod e = 25902-6) Normal [facility] MOLECULAR LKMEV2855-65-38 23:37:08* Test Item Value Reference Range Interpretation Comme nts POCT Molecular Strep (test c ode = 54177-9) Negative Negative Lab Interpretation (test cod e = 69751-0) [facility] P9186-73-10 19:05:08* Test Item Value Reference Range Interpretation Comme nts TROPONIN I (test code = 9837623043) 0.005 ng/mL <=0.034 BRITTANY (test code = [...] of biotin. Lab Interpretation (test code = 96202-4) Normal [facility] Hgk-Ise0454-38-21 19:02:25* Test Item Value Reference Range Interpretation Comme nts NT-proBNP (test code = 35783-2) 21 pg/mL <=125 Lab Interpretation (test cod e = 56523-8) Normal [facility] HospitalMagnesium2023-12-21 18:53:46* Test Item Value Reference Range Interpretation Comme nts MAGNESIUM (test code = 8614398667) 1.8 mg/dL 1.7-2.4 Lab Interpretation (test cod e = 03465-1) Normal [facility] Hospital[facility]. Metabolic Panel (78994)2023-08-15 18:53:05* Test Item Value Reference Range Interpretation Comme nts NA (test code = 7791330026) 138 mmol/L 135-145 K (test code = 6776291695) 3.8 mmol/L 3.5-5.0 CL (test code = 1177314072) 106 mmol/L 98-108 CO2 TOTAL (test code = 6507930375) 23 mmol/L 23-31 AGAP (test code = 7719252169) 9 2-16 BUN (test code = 6589638703) 14 mg/dL 7-23 GLUCOSE (test code = 5708989720) 75 mg/dL 70-110 CREATININE (test code = 0593713204) 0.74 mg/dL 0.50-1.04 TOTAL BILI (test code = 6393816697) 0.3 mg/dL 0.1-1.1 CALCIUM (test code = 0445038795) 8.9 mg/dL 8.6-10.6 T PROTEIN (test code = 1562450854) 7.1 g/dL 6.3-8.2 ALBUMIN (test code = 3037687416) 4.1 g/dL 3.5-5.0 ALK PHOS (test code = 9923671790) 82 U/L 34-122 ALTv (test code = 1742-6) 39 U/L 5-35 H AST(SGOT) (test code = 4874600537) 33 U/L 13-40 eGFR (test code = 45764-9) 99.9 mL/min/1.73m2 CKD-EPI eGFR (2020). Assuming creatinine has been stable day-to-day for at least three months, the eGFR indicates Category G1 (>= 90 mL/min/1.73 m2) Lab Interpretation (test code = 42348-8) Abnormal [facility] with Yfwc9846-25-56 18:45:05* Test Item Value Reference Range Interpretation Comme nts WBC (test code = 6690-2) 6.21 See_Comment [Automated Prelert] The system which generated this result transmitted reference range: 4.30 - 11.10 10*3/?L. The reference range was not used to interpret this result as normal/abnormal. RBC (test code = 789-8) 4.21 See_Comment [Automated Prelert] The system which generated this result transmitted [...] 33.7 g/dL 31.6-35.1 RDW-SD (test code = 30108-5) 46.5 fL 39.0-49.9 RDW-CV (test code = 788-0) 13.8 % 12.0-15.5 PLT (test code = 777-3) 246 See_Comment [Automated messa ge] The system which generated this result transmitted reference range: 166 - 358 10*3/?L. The reference range was not used to interpret this result as normal/abnormal. MPV (test code = 99635-4) 10.7 fL 9.5-12.9 NRBC/100 WBC (test code = 6328708477) 0.0 See_Comment [Automated Palamida ssage] The system which generated this result transmitted reference range: 0.0 - 10.0 /100 WBCs. The reference range was not used to interpret this result as normal/abnormal. NRBC x10^3 (test code = 6044282203) See_Comment [Automated messa ge] The system which generated this result transmitted reference range: 10*3/?L. The reference range was not used to interpret this result as normal/abnormal. GRAN MAT (NEUT) % (test code = 770-8) 50.9 % IMM GRAN % (test code = 5910511825) 0.50 % LYMPH % (test code = 736-9) 29.5 % MONO % (test code = 5905-5) 11.8 % EOS % (test code = 713-8) 6.0 % BASO % (test code = 706-2) 1.3 % GRAN MAT x10^3(ANC) (test code = 5024862021) 3.17 10*3/uL 1.88-7.09 IMM GRAN x10^3 (test code = 5307030771) 0.03 10*3/uL 0.00-0.06 LYMPH x10^3 (test code = 731-0) 1.83 10*3/uL 1.32-3.29 MONO x10^3 (test code = 742-7) 0.73 10*3/uL 0.33-0.92 EOS x10^3 (test code = 711-2) 0.37 10*3/uL 0.03-0.39 BASO x10^3 (test code = 704-7) 0.08 10*3/uL 0.01-0.07 H Lab Interpretation (test code = 38569-8) [facility]normal [facility] Hospital[facility] 1 [id number] 18:27:36HISTORY: Fatigue. TECHNIQUE: Portable AP view of the chest is obtained. Comparison made with10/26/2019 study. FINDINGS: No acute pneumonia. Soft tissue fullness in right cardiophrenicregion is essentially unchanged since the previous study. No pneumothoraxor pleural effusion or pulmonary congestion detected. Cardiac size iswithin upper normal limits. CONCLUSIONS: No signs of acute cardiopulmonary di sease.[facility] MOLECULAR JFUSE0657-09-05 20:17:15 * Test Item Value Reference Range Interpretation Comme nts POCT Molecular Strep (test c ode = 80336-4) Negative Negative Lab Interpretation (test cod e = 43377-4) Normal [facility] MOLECULAR FAM1180-95-62 20:15:17* Test Item Value Reference Range Interpretation Comme nts POCT Molecular FluB (test co de = 93518-5) Positive Negative A Lab Interpretation (test cod e = 85737-0) Abnormal [facility] SARS-COV-2 ANTIGEN (BINAX NOW)2023-07-01 20:15:00* Test Item Value Reference Range Interpretation Comme nts POCT SARS-COV-2 ANTIGEN (test code = 28617-1) Not Detected Not Detected On board controls acceptable with C Line (test code = 3574) Yes BRITTANY (test code = BRITTANY) accurate developme nt and interpretation of all internal controls Lab Interpretation (test code = 85068-5) Normal [facility] SARS-COV-2 ANTIGEN (BINAX NOW)2023-06-17 22:11:00* Test Item Value Reference Range Interpretation Comme nts POCT SARS-COV-2 ANTIGEN (test code = 84181-7) Not Detected Not Detected On board controls acceptable with C Line (test code = 3574) Yes BRITTANY (test code = BRITTANY) accurate developme nt and interpretation of all internal controls Lab Interpretation (test code = 05110-6) Normal [facility] SARS-COV-2 ANTIGEN (BINAX NOW)2023-06-17 22:11:00* Test Item Value Reference Range Interpretation Comme nts POCT SARS-COV-2 ANTIGEN (test code = 58619-2) Not Detected Not Detected On board controls acceptable with C Line (test code = 3574) Yes BRITTANY (test code = BRITTANY) accurate developme nt and interpretation of all internal controls Lab Interpretation (test code = 46323-7) Normal [facility] SARS-COV-2 ANTIGEN (BINAX NOW)2023-05-02 22:10:00* Test Item Value Reference Range Interpretation Comme nts POCT SARS-COV-2 ANTIGEN (idania t code = 96024-7) Not Detected Not Detected On board controls acceptable with C Line (test code = 3574) Yes [facility] SARS-COV-2 ANTIGEN (BINAX NOW)2023-04-02 18:54:00* Test Item Value Reference Range Interpretation Comme nts POCT SARS-COV-2 ANTIGEN (test code = 40358-8) Not Detected Not Detected On board controls acceptable with C Line (test code = 3574) Yes BRITTANY (test code = BRITTANY) accurate developme nt and interpretation of all internal controls Lab Interpretation (test code = 24644-4) Normal [facility] HospitalTROPONIN [id number] 22:50:48* Test Item Value Reference Range Interpretation Comme nts TROPONIN I (test code = 2545209576) 0.000 ng/mL <=0.034 BRITTANY (test code = [...] of biotin. Lab Interpretation (test code = 65392-6) Normal [facility] HospitalMAGNESIUM2023-06-23 22:41:08* Test Item Value Reference Range Interpretation Comme nts MAGNESIUM (test code = 1291330455) 1.9 mg/dL 1.7-2.4 Lab Interpretation (test cod e = 68348-1) [facility]. METABOLIC PANEL (15289)2023-02-15 22:41:07* Test Item Value Reference Range Interpretation Comme nts NA (test code = 0469975027) 140 mmol/L 135-145 K (test code = 7202961944) 4.3 mmol/L 3.5-5.0 CL (test code = 5613025683) 105 mmol/L 98-108 CO2 TOTAL (test code = 5963935697) 25 mmol/L 23-31 AGAP (test code = 1876562945) 10 2-16 BUN (test code = 0003146914) 16 mg/dL 7-23 GLUCOSE (test code = 4542264792) 68 mg/dL 70-110 L CREATININE (test code = 8914804491) 0.63 mg/dL 0.50-1.04 TOTAL BILI (test code = 8700627998) 0.5 mg/dL 0.1-1.1 CALCIUM (test code = 6347179283) 9.2 mg/dL 8.6-10.6 T PROTEIN (test code = 3586787695) 7.5 g/dL 6.3-8.2 ALBUMIN (test code = 4559834346) 4.5 g/dL 3.5-5.0 ALK PHOS (test code = 5904697075) 73 U/L 34-122 ALTv (test code = 1742-6) 42 U/L 5-35 H AST(SGOT) (test code = 2458287269) 31 U/L 13-40 eGFR (test code = 7263089482) 101.3 mL/min/1.73m2 BRITTANY (test code = BRITTANY) [...] imaging tests). Lab Interpretation (test code = 21998-4) Abnormal [facility]LIPASE2023-[facility] 22:40:52* Test Item Value Reference Range Interpretation Comme nts LIPASE (test code = 0631686907) 106 U/L 0-220 Lab Interpretation (test cod e = 70610-2) [facility] WITH [id number] 22:26:28* Test Item Value Reference Range Interpretation Comme nts WBC (test code = 6690-2) 6.47 See_Comment [Automated Prelert] The system which generated this result transmitted reference range: 4.30 - 11.10 10*3/?L. The reference range was not used to interpret this result as normal/abnormal. RBC (test code = 789-8) 4.70 See_Comment [Kunlun] The system which generated this result transmitted [...] 33.4 g/dL 31.6-35.1 RDW-SD (test code = 83281-2) 42.1 fL 39.0-49.9 RDW-CV (test code = 788-0) 12.7 % 12.0-15.5 PLT (test code = 777-3) 257 See_Comment [Automated messa ge] The system which generated this result transmitted reference range: 166 - 358 10*3/?L. The reference range was not used to interpret this result as normal/abnormal. MPV (test code = 95420-8) 11.1 fL 9.5-12.9 NRBC/100 WBC (test code = 6067934805) 0.0 See_Comment [Automated me ssage] The system which generated this result transmitted reference range: 0.0 - 10.0 /100 WBCs. The reference range was not used to interpret this result as normal/abnormal. NRBC x10^3 (test code = 7274745111) See_Comment [Automated messa ge] The system which generated this result transmitted reference range: 10*3/?L. The reference range was not used to interpret this result as normal/abnormal.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
[2024-02-20 16:02] LABS: Absolute Basophils 0.1 K/uL (0-0.5); Absolute Eosinophils 0.3 K/uL (0-0.5); Absolute Lymphocytes (CBC) 1.2 K/uL (0.7-4.9); Absolute Monocytes 0.6 K/uL (0.1-1.3); Absolute Neutrophil 5.2 K/uL (1.8-8.0); Eosinophils % 3.4 % (0-4.4); Hematocrit 41.2 % (36.0-45.0); Hemoglobin 13.9 g/dL (12.0-15.0); Lymphocytes % 16.4 % (15.3-44.8); MCH 30.2 pg (27.0-35.0); MCHC 33.7 g/dL (32.0-36.0); MCV 89.7 fL (80-100); MPV 9.2 fL (7.6-11.3); Monocytes % 8.7 % (3.3-12.3); Neutrophils % 70.5 % (41.7-73.7); Nucleated Red Blood Cells % 0.1 % (0-0); Platelets 263 thou/uL (152-406); RBC Red Blood Cell Count 4.59 M/uL (3.86-4.86); Red Cell Distribution Width 13.9 % (12.1-15.2)
[2024-02-20 16:20] LABS: Albumin 3.8 g/dL (3.4-5.0); Albumin/Globulin Ratio 1.2 (1.1-1.8); Anion Gap 8.3 mEq/L (5.0-15.0); Bilirubin Total 0.3 mg/dL (0.2-1.0); Globulin 3.3 g/dL (2.3-3.5); Potassium 3.3 mEq/L (3.5-5.1); Protein, Total 7.1 g/dL (6.4-8.2)
[2024-02-20 16:41] LABS: Specific Gravity 1.013 (1.005-1.030); Sqamous Epithelial <5 /HPF (None Seen); Urine Bacteria None Seen /HPF (<20); Urine Bilirubin NEGATIVE (Negative); Urine Blood Negative (Negative); Urine Clarity Extremely Turbid (Clear); Urine Color Light-Yellow (Yellow); Urine Culture Reflex Order NOT NEEDED; Urine Glucose NEGATIVE (Negative); Urine Ketones NEGATIVE (Negative); Urine Microscopic Reflex YN ORDER UMIC; Urine Nitrite NEGATIVE (Negative); Urine Protein NEGATIVE (Negative); Urine RBC <5 /HPF (None Seen); Urine Urobilinogen Normal (Normal); Urine WBC <5 /HPF (<5)
[2024-02-20] MEDS ORDERED: MORPHINE 4 MG/ML SYR ONE (16:58)
[2024-02-20] MEDS ORDERED: ONDANSETRON 4 MG/2 ML VIAL ONE (16:58)
[2024-02-20] MEDS ORDERED: FAMOTIDINE 20 MG/2 ML VIAL IV ONE (16:59)
[2024-02-20] MEDS ORDERED: NA CHLORIDE 0.9% 1,000 ML ONE (16:59)
--- NOTE | 2024-02-20 17:07 | RAD REPORT ---
EXAM DESCRIPTION: CT - Abdomen Pelvis W Contrast - 02/20/2024 4:36 pm CLINICAL HISTORY: Abdominal pain COMPARISON: November 2023 TECHNIQUE: Computed axial tomography of the abdomen pelvis was obtained. 100 cc Isovue-300 was admin istered intravenously. Oral contrast was not requested which limits evaluation of bowel and appendix All CT scans are performed using dose optimization technique as appropriate and may include automated exposure control or mA/KV adjustment according to patient size. FINDINGS: Cholecystectomy. The liver, spleen, pancreas, adrenal and kidneys appear unremarkable. There is no evidence of diverticulitis. Normal appendix No adnexal mass Bilateral pulmonary nodules described on the prior exam have mostly resolved IMPRESSION: No acute abnormality is displayed.
--- NOTE | 2024-02-20 17:32 | EDPHYS ---
Physician Documentation [facility] Name: Joy Strauss Age: 48 yrs Sex: Female : 1975 Arrival Date: 02/20/2024 Time: 14:46 Bed 10 Private MD: ED Physician Edie Quintero HPI: 02/19 16:25 This 48 yrs old Female presents to ER via Ambulatory with complaints of Vomiting, kb Abdominal Pain. 16:25 Patient is a 48-year-old female who presents for upper abdominal pain and vomiting that kb started 1 month ago and is worse today. States she has seen Dr. Mcelroy for the symptoms and had an EGD done which revealed ulcers. Patient is on pantoprazole. States she is awaiting colonoscopy as the next step for investigating symptoms. Denies fever. TAX INTERN: 17:50 LMP N/A - control method, Not tl4 Historical: - Allergies: 15:13 NKA; ll1 - PMHx: 15:13 Asthma; Back pain; Chronic pain; Degenerative disc disease; herniated discs; Lupus; RA; ll1 scoliosis; - PSHx: 15:13 Cholecystectomy; ll1 - Immunization history:: Adult Immunizations up to date. - Infectious Disease History:: Denies. - Social history:: Smoking status: Patient denies any tobacco usage or history of. ROS: 16:26 Constitutional: As per HPI kb Exam: 16:26 Constitutional: This is a well developed, well nourished patient who is awake, alert, kb and in no acute distress. Head/Face: Normocephalic, atraumatic. ENT: Moist Mucous membranes Cardiovascular: Regular rate Respiratory: Respirations even and unlabored. No increased work of breathing. Talking in full sentences Skin: Warm, dry with normal turgor. Normal color. MS/ Extremity: Pulses equal, no cyanosis. Neurovascular intact. Full, normal range of motion. Neuro: Awake and alert, GCS 15, oriented to person, place, time, and situation. Moves all extremities. Normal gait. 16:26 Abdomen/GI: Inspection: abdomen appears normal, Bowel sounds: normal, Palpation: soft, in all quadrants, mild abdominal tenderness, in the right upper quadrant, moderate abdominal tenderness, in the left upper quadrant, Vital Signs: 15:12 BP 181 / 92; Pulse 99; Resp 20; Temp 97.4(TE); Pulse Ox 97% ; Weight 85.28 kg; Height 5 ll1 ft. 0 in. ; Pain 10/10; 17:13 BP 157 / 91; Pulse 88; Resp 16; Pulse Ox 99% on R/A; tl4 15:12 Body Mass Index 36.72 (85.28 kg, 152.4 cm) ll1 15:12 Pain Scale: Adult ll1 MDM: 14:58 Patient medically screened. kb 17:30 Data reviewed: vital signs, nurses notes. kb 17:30 Differential diagnosis: Nonspecific abd pain, gastritis, viral gastroenteritis. kb Counseling: I had a detailed discussion with the patient and/or guardian regarding the historical points, exam findings, and any diagnostic results supporting the discharge/admit diagnosis, lab results, radiology results, the need for outpatient follow up, a family practitioner, to return to the emergency department if symptoms worsen or persist or if there are any questions or concerns that arise at home. 02/19 15:13 Order name: CBC with Diff; Complete Time: 16:19 kb 02/19 15:13 Order name: CMP; Complete Time: 16:22 kb 02/19 15:13 Order name: Lipase; Complete Time: 16:22 kb 02/19 15:13 Order name: Urinalysis w/ reflexes; Complete Time: 16:54 kb 02/19 15:13 Order name: CT Abd/Pelvis - IV Contrast Only; Complete Time: 17:09 kb 02/19 15:13 Order name: IV Saline Lock; Complete Time: 15:58 kb 02/19 15:13 Order name: Labs collected and sent; Complete Time: 15:58 kb Administered Medications: 17:12 Drug: NS 0.9% IV 1000 ml IV at 1 bolus Per protocol; 1000 mL bolus Route: IV; Rate: 1 tl4 bolus; Site: right antecubital; Delivery: Primary tubing; 17:48 Follow up: Response: No adverse reaction; IV Status: Completed infusion; IV Intake: tl4 1000ml 17:12 Drug: Ondansetron IVP 4 mg IVP once; over 2 minutes Route: IVP; Infused Over: 2 mins; tl4 Site: right antecubital; 17:48 Follow up: Response: No adverse reaction; Nausea is decreased tl4 17:13 Drug: Famotidine IVP 20 mg IVP once; dilute with 10 mL 0.9% NaCl; give over 2 minutes tl4 Route: IVP; Infused Over: 2 mins; Site: right antecubital; 17:48 Follow up: Response: No adverse reaction; Pain is decreased tl4 17:13 Drug: morphine IVP or IV 4 mg IVP once over 4 mins Route: IVP; Infused Over: 4 mins; tl4 Site: right antecubital; 17:48 Follow up: Response: No adverse reaction; Pain is decreased tl4 17:44 Drug: Potassium Chloride PO 20 mEq PO once Route: PO; tl4 17:49 Follow up: Response: No adverse reaction; Medication administered at discharge. tl4 Disposition: 18:12 I agree with the assessment and plan of care. I reviewed the patient's care provided by [facility] the Advanced Practice Provider and agree with the diagnosis and treatment plan. Disposition Summary: 02/20/24 17:31 Discharge Ordered Notes: Location: Home Condition: Stable kb Diagnosis - Upper abdominal pain, unspecified kb Followup: kb - With: Emergency Department - When: As needed - Reason: Worsening of condition Followup: kb - With: Private Physician - When: 2 - 3 days - Reason: Recheck today's complaints, Continuance of care, Re-evaluation by your physician Discharge Instructions: - Discharge Summary Sheet kb - Abdominal Pain, Adult, [id number] kb Forms: - Medication Reconciliation Form kb - Antibiotic Education kb - Prescription Opioid Use kb - Patient Portal Instructions kb - Leadership Thank You Letter kb Prescriptions: - dicyclomine 20 mg Oral tablet - take 1 tablet ORAL route 4 times per day As needed; 20 tablet; Refills: 0, kb Product Selection Permitted Signatures: Dispatcher [employer] [facility] Kay Parker, DRYING OVEN ATTENDANT-C DRYING OVEN ATTENDANT-Amina Bennett, SREEDHAR RN ll1 Edie Quintero MD MD gb1 Ceasar Pandey RN RN tl4 Corrections: (The following items were deleted from the chart) 15:14 15:14 Abdomen Pelvis W Con+CT.RAD.BRZ ordered. [facility] 16:26 16:26 Abdomen/GI: Inspection: abdomen appears normal, Bowel sounds: normal, Palpation: kb soft, in all quadrants, moderate abdominal tenderness, in the right upper quadrant and left upper quadrant, kb
--- NOTE | 2024-02-20 17:32 | ER ---
Nurse's Notes [facility] Name: Joy Strauss Age: 48 yrs Sex: Female : 1975 Arrival Date: 02/20/2024 Time: 14:46 Bed 10 Private MD: Diagnosis: Upper abdominal pain, unspecified Presentation: 02/19 15:12 Chief complaint: Patient states: Abdominal pain with N/V for over 1 month. Scope with ll1 Dr. Mcelroy showed ulcers, still needs colonoscopy. Coronavirus screen: Client denies travel out of the [place] in the last 14 days. At this time, the client does not indicate any symptoms associated with coronavirus-19. Ebola Screen: Patient denies travel to an Ebola-affected area in the 21 days before illness onset. Initial Sepsis Screen: Does the patient meet any 2 criteria? No. Patient's initial sepsis screen is negative. Does the patient have a suspected source of infection? No. Patient's initial sepsis screen is negative. Risk Assessment: Do you want to hurt yourself or someone else? Patient reports no desire to harm self or others. Onset of symptoms was January 20, 2024. 15:12 Method Of Arrival: Ambulatory ll1 15:12 Acuity: FÉLIX 3 ll1 Triage Assessment: 15:13 General: Appears uncomfortable, Behavior is calm, cooperative, appropriate for age. ll1 Pain: Complains of pain in abdomen Quality of pain is described as aching, crampy. GI: Reports lower abdominal pain, upper abdominal pain, bloating, cramping, nausea, vomiting. [employer] ARCHITECT: 17:50 LMP N/A - control method, Not tl4 Historical: - Allergies: 15:13 NKA; ll1 - PMHx: 15:13 Asthma; Back pain; Chronic pain; Degenerative disc disease; herniated discs; Lupus; RA; ll1 scoliosis; - PSHx: 15:13 Cholecystectomy; ll1 - Immunization history:: Adult Immunizations up to date. - Infectious Disease History:: Denies. - Social history:: Smoking status: Patient denies any tobacco usage or history of. Screenin:54 [facility] ED Fall Risk Assessment (Adult) History of falling in the last 3 months, tl4 including since admission No falls in past 3 months (0 pts) Confusion or Disorientation No (0 pts) Intoxicated or Sedated No (0 pts) Impaired Gait No (0 pts) Mobility Assist Device Used No (0 pt) Altered Elimination No (0 pt) Score/Fall Risk Level 0 - 2 = Low Risk Oriented to surroundings, Maintained a safe environment, Educated pt \T\ family on fall prevention, incl call for assistance when getting out of bed, Assessed \T\ reinforced patient's understanding of fall precautions. Abuse screen: Denies threats or abuse. Denies injuries from another. Nutritional screening: No deficits noted. Tuberculosis screening: No symptoms or risk factors identified. Assessment: 16:51 General: Appears uncomfortable, Behavior is cooperative. Pain: Complains of pain in tl4 abdomen. Neuro: Level of Consciousness is awake, alert, obeys commands, Oriented to person, place, time, situation, Moves all extremities. Full function Gait is steady, Speech is normal. Cardiovascular: Capillary refill < 3 seconds Patient's skin is warm and dry. Respiratory: Airway is patent Respiratory effort is even, unlabored, Respiratory pattern is regular, symmetrical, Breath sounds are clear bilaterally. GI: Pt is c/o nausea, states she can't stop vomiting Abd is soft X 4 quads. : No signs and/or symptoms were reported regarding the genitourinary system. EENT: No signs and/or symptoms were reported regarding the EENT system. Derm: No signs and/or symptoms reported regarding the dermatologic system. Musculoskeletal: No signs and/or symptoms reported regarding the musculoskeletal system. Vital Signs: 15:12 BP 181 / 92; Pulse 99; Resp 20; Temp 97.4(TE); Pulse Ox 97% ; Weight 85.28 kg; Height 5 ll1 ft. 0 in. ; Pain 10/10; 17:13 BP 157 / 91; Pulse 88; Resp 16; Pulse Ox 99% on R/A; tl4 15:12 Body Mass Index 36.72 (85.28 kg, 152.4 cm) ll1 15:12 Pain Scale: Adult ll1 ED Course: 14:50 Patient arrived in ED. mg5 14:58 Kay Parker FNP-C is [facility]. kb 14:58 Edie Quintero MD is Attending Physician. kb 15:13 Triage completed. ll1 15:14 Arm band placed on. ll1 15:48 Radiology exam delayed due to lab results not completed at this time. (BUN/Creatinine). nj 15:48 Radiology exam delayed due to IV insertion attempt and/or patient not having nj appropriate IV at this time. 15:48 Radiology exam delayed due to test not completed at this time. hi 15:58 CBC with Diff Sent. 6 15:58 CMP Sent. [facility] 15:58 Lipase Sent. 6 15:58 Urinalysis w/ reflexes Sent. [facility] 15:58 Initial lab(s) drawn, by me, sent to lab. Inserted saline lock: 20 gauge in right bc6 forearm, using aseptic technique. Blood collected. 16:38 CT Abd/Pelvis - IV Contrast Only In Process Unspecified. EDMS 16:51 Ceasar Pandey, RN is Primary Nurse. tl4 16:55 Patient has correct armband on for positive identification. Placed in gown. Bed in low tl4 position. Call light in reach. Side rails up X 1. Provided Education on: ed process, call mcmahon. Client placed on continuous cardiac and pulse oximetry monitoring. NIBP monitoring applied. Door closed. Noise minimized. Lights dimmed. Moved to private room. Warm blanket given. Pillow given. 16:55 No provider procedures requiring assistance completed. tl4 17:49 IV discontinued, intact, bleeding controlled, No redness/swelling at site. Pressure tl4 dressing applied. Administered Medications: 17:12 Drug: NS 0.9% IV 1000 ml IV at 1 bolus Per protocol; 1000 mL bolus Route: IV; Rate: 1 tl4 bolus; Site: right antecubital; Delivery: Primary tubing; 17:48 Follow up: Response: No adverse reaction; IV Status: Completed infusion; IV Intake: tl4 1000ml 17:12 Drug: Ondansetron IVP 4 mg IVP once; over 2 minutes Route: IVP; Infused Over: 2 mins; tl4 Site: right antecubital; 17:48 Follow up: Response: No adverse reaction; Nausea is decreased tl4 17:13 Drug: Famotidine IVP 20 mg IVP once; dilute with 10 mL 0.9% NaCl; give over 2 minutes tl4 Route: IVP; Infused Over: 2 mins; Site: right antecubital; 17:48 Follow up: Response: No adverse reaction; Pain is decreased tl4 17:13 Drug: morphine IVP or IV 4 mg IVP once over 4 mins Route: IVP; Infused Over: 4 mins; tl4 Site: right antecubital; 17:48 Follow up: Response: No adverse reaction; Pain is decreased tl4 17:44 Drug: Potassium Chloride PO 20 mEq PO once Route: PO; tl4 17:49 Follow up: Response: No adverse reaction; Medication administered at discharge. tl4 Medication: 16:54 VIS not applicable for this client. tl4 Intake: 17:48 IV: 1000ml; Total: 1000ml. tl4 Outcome: 17:31 Discharge ordered by . berry 17:49 Discharged to home ambulatory, tl4 17:49 Condition: stable 17:49 Discharge instructions given to patient, Instructed on discharge instructions, follow up and referral plans. medication usage, Demonstrated understanding of instructions, follow-up care, medications, Prescriptions given X 1, 17:50 Patient left the ED. tl4 Signatures: Dispatcher [employer] EDMS Kay Parker, STRUCTURER-C STRUCTURER-Ckb Sridhar Hernandez Lynsay, RN RN ll1 Irma Grewal 6 Makenna Henson mg5 Ceasar Pandey RN RN tl4
[2024-02-20] MEDS ORDERED: POTASSIUM CL SA 10 MEQ TAB PO ONE (17:47)
== END 2024-02-20 17:50 | disposition home or self-care (01) ==
LOC: ER 14:46
DX: R10.10 Upper abdominal pain, unspecified (principal)
CPT/HCPCS: 96361; 85025; 81001; 36415; 83690; 80053; 74177; 96375; 96374; 99284; Q9967; J2405; J7030

== ENCOUNTER 2024-12-31 09:42 | Emergency (ER) | payer OTHER ==
[2024-12-31] MEDS ORDERED: METHYLPREDNISOLONE 125 MG INJ ONE (10:19)
[2024-12-31] MEDS ORDERED: KETOROLAC 30 MG/ML INJ ONE (10:20)
[2024-12-31] MEDS ORDERED: ONDANSETRON 4 MG/2 ML VIAL ONE (10:20)
[2024-12-31] MEDS ORDERED: HYDROMORPHONE HCL 1 MG/ML INJ ONE (10:20)
--- NOTE | 2024-12-31 10:35 | RAD REPORT ---
EXAMINATION: LUMBAR SPINE MULTIPLE VIEWS CLINICAL INDICATION: Female, 49 years old. LOWER BACK PAIN TECHNIQUE: Multiple views of the lumbar spine were obtained. COMPARISON: No prior exam. FINDINGS: For purposes of this dictation, it is assumed that there are 5 lumbar type vertebral bodies. ALIGNMENT: Moderate to severe dextroscoliosis of lumbar spine is present. 11 mm anterolisthesis of L5 on S1. BONES: Vertebral bodies are normal in height. No aggressive osseous lesions. DISCS: Diffuse disc thinning throughout the lumbar levels, most notable at L4-5 and L5-S1. IMPRESSION: Moderate degenerative dextroscoliosis of lumbar spine.
--- NOTE | 2024-12-31 10:52 | EDPHYS ---
Physician Documentation [facility] Name: Joy Strauss Age: 49 yrs Sex: Female : 1975 Arrival Date: 12/31/2024 Time: 09:42 Bed 2 Private MD: ED Physician Woody Higgins HPI: 12/31 10:09 This 49 yrs old Female presents to ER via Ambulatory with complaints of Low Back Pain, sp3 Leg Pain. 10:09 49-year-old female with history of chronic back pain, degenerative disc disease, prior sp3 herniated disc, lupus, RA presents to the ED with chief complaint acute on chronic low back pain. Patient thinks that she may have "tweaked her back". She denies any loss of bowel or bladder control but does states she has got numbness posteriorly bilateral legs. No loss of motor function reported. Patient denies headache, neck pain, chest pain, shortness breath, upper or mid back pain, abdominal pain, syncope, speech changes, or any other signs or symptoms on ROS at this time.. Historical: - Allergies: 09:45 NKA; ll1 - PMHx: 09:45 Asthma; Back pain; Chronic pain; Degenerative disc disease; herniated discs; Lupus; RA; ll1 scoliosis; - PSHx: 09:45 Cholecystectomy; ll1 - Immunization history:: Adult Immunizations up to date. - Infectious Disease History:: Denies. - Social history:: Smoking status: Patient denies any tobacco usage or history of. ROS: 10:12 Constitutional: Negative for fever, chills, and weight loss, Eyes: Negative for injury, sp3 pain, redness, and discharge, Neck: Negative for injury, pain, and swelling, Cardiovascular: Negative for chest pain, palpitations, and edema, Respiratory: Negative for shortness of breath, cough, wheezing, and pleuritic chest pain, Abdomen/GI: Negative for abdominal pain, nausea, vomiting, diarrhea, and constipation, Back: Negative for injury and pain, : Negative for injury, bleeding, discharge, and swelling, Skin: Negative for injury, rash, and discoloration, Psych: Negative for depression, anxiety, suicide ideation, homicidal ideation, and hallucinations, Allergy/Immunology: Negative for hives, rash, and allergies, Endocrine: Negative for neck swelling, polydipsia, polyuria, polyphagia, and marked weight changes, Hematologic/Lymphatic: Negative for swollen nodes, abnormal bleeding, and unusual bruising, 10:12 All other systems are negative, Exam: 10:13 Constitutional: This is a well developed, well nourished patient who is awake, alert, sp3 and in no acute distress. Head/Face: Normocephalic, atraumatic. Eyes: Pupils equal round and reactive to light, extra-ocular motions intact. Lids and lashes normal. Conjunctiva and sclera are non-icteric and not injected. Cornea within normal limits. Periorbital areas with no swelling, redness, or edema. Neck: Trachea midline, no thyromegaly or masses palpated, and no cervical lymphadenopathy. Supple, full range of motion without nuchal rigidity, or vertebral point tenderness. No Meningismus. Chest/axilla: Normal chest wall appearance and motion. Nontender with no deformity. No lesions are appreciated. Cardiovascular: Regular rate and rhythm with a normal S1 and S2. No gallops, murmurs, or rubs. Normal PMI, no JVD. No pulse deficits. Respiratory: Lungs have equal breath sounds bilaterally, clear to auscultation and percussion. No rales, rhonchi or wheezes noted. No increased work of breathing, no retractions or nasal flaring. Abdomen/GI: Soft, non-tender, with normal bowel sounds. No distension or tympany. No guarding or rebound. No evidence of tenderness throughout. Back: No spinal tenderness. No costovertebral tenderness. Full range of motion. Skin: Warm, dry with normal turgor. Normal color with no rashes, no lesions, and no evidence of cellulitis. Psych: Awake, alert, with orientation to person, place and time. Behavior, mood, and affect are within normal limits. 10:13 Musculoskeletal/extremity: Patient ambulatory but slow to walk. Positive pain on straight leg raise bilaterally at approximately 30 degrees. Normal neurological exam otherwise. Vital signs are normal.. Vital Signs: 09:46 BP 149 / 88; Pulse 94; Resp 17; Temp 97.7; Pulse Ox 100% ; Weight 90.72 kg; Height 5 ll1 ft. 0 in. ; Pain 9/10; 11:22 BP 132 / 71; Pulse 75; Resp 16; Pulse Ox 99% ; bp 09:46 Body Mass Index 39.06 (90.72 kg, 152.4 cm) ll1 09:46 Pain Scale: Adult ll1 MDM: 09:54 Medical Screening Exam initiated sp3 10:13 Data reviewed: vital signs, nurses notes, diagnostic data from outside facility, sp3 radiologic studies. ED course: 49-year-old female with low back pain. Differential diagnosis includes acute on chronic low back pain, degenerative disc disease, sciatica, localized inflammation, muscle strain, among others. I am not highly suspicious of sepsis, shock, aortic pathology, kidney stone, UTI/pyelonephritis spectrum, or any other concerning or critical process at this time. Will treat based on clinical suspicion with ketorolac, Solu-Medrol, ondansetron, and Dilaudid IV. X-ray of the lumbar spine pending. Patient sees Dr. Alvarenga for chronic pain she states.. 12/31 10:08 Order name: Lumbar Spine (3 Views) XRAY; Complete Time: 10:47 sp3 12/31 10:08 Order name: IV Saline Lock; Complete Time: 10:35 sp3 Administered Medications: 10:35 Drug: HYDROmorphone IVP 1 mg IVP once Route: IVP; Site: right forearm; kc6 11:14 Follow up: Response: No adverse reaction; Pain is decreased; RASS: Alert and Calm (0) kc6 10:35 Drug: MethylPrednisoLONE IVP 125 mg IVP once Route: IVP; Site: right forearm; kc6 11:14 Follow up: Response: No adverse reaction kc6 10:35 Drug: Ketorolac IVP 30 mg IVP once Route: IVP; Site: right forearm; kc6 11:14 Follow up: Response: No adverse reaction kc6 10:35 Drug: Ondansetron IVP 4 mg IVP once; over 2 minutes Route: IVP; Site: right forearm; kc6 11:15 Follow up: Response: No adverse reaction kc6 Disposition Summary: 12/31/24 10:52 Discharge Ordered Notes: Location: Home sp3 Condition: Stable sp3 Diagnosis - Acute on chronic back pain sp3 Followup: sp3 - With: Private Physician - When: Upon discharge from the Emergency Department - Reason: Continuance of care Discharge Instructions: - Discharge Summary Sheet sp3 - Chronic Back Pain sp3 Forms: - Work release form bp - Medication Reconciliation Form sp3 - Antibiotic Education sp3 - Prescription Opioid Use sp3 - Patient Portal Instructions sp3 - Leadership Thank You Letter sp3 Signatures: Dispatcher [employer] EDArik Dexter, RN RN Amina Howell RN RN ll1 Woody Higgins MD MD sp3 Irma Castellano RN RN kc6 Corrections: (The following items were deleted from the chart) 10:08 10:08 Lumbar Spine 3 Views+RAD.RAD.BRZ ordered. [facility] EDMS
--- NOTE | 2024-12-31 10:52 | ER ---
Nurse's Notes [facility] Name: Joy Strauss Age: 49 yrs Sex: Female : 1975 Arrival Date: 12/31/2024 Time: 09:42 Bed 2 Private MD: Diagnosis: Acute on chronic back pain Presentation: 12/31 09:46 Chief complaint: Patient states: Back problems with severe pain down both legs for 1.5 ll1 days. Coronavirus screen: Client denies travel out of the [place] in the last 14 days. At this time, the client does not indicate any symptoms associated with coronavirus-19. Ebola Screen: Patient denies travel to an Ebola-affected area in the 21 days before illness onset. Initial Sepsis Screen: Does the patient meet any 2 criteria? No. Patient's initial sepsis screen is negative. Does the patient have a suspected source of infection? No. Patient's initial sepsis screen is negative. Risk Assessment: Do you want to hurt yourself or someone else? Patient reports no desire to harm self or others. Onset of symptoms was December 30, 2024. 09:46 Method Of Arrival: Ambulatory ll1 09:46 Acuity: FÉLIX 3 ll1 Triage Assessment: 09:45 General: Appears uncomfortable, Behavior is calm, cooperative, appropriate for age. ll1 Pain: Complains of pain in right leg and left leg. Musculoskeletal: Reports pain in back. Historical: - Allergies: 09:45 NKA; ll1 - PMHx: 09:45 Asthma; Back pain; Chronic pain; Degenerative disc disease; herniated discs; Lupus; RA; ll1 scoliosis; - PSHx: 09:45 Cholecystectomy; ll1 - Immunization history:: Adult Immunizations up to date. - Infectious Disease History:: Denies. - Social history:: Smoking status: Patient denies any tobacco usage or history of. Screenin:45 [facility] ED Fall Risk Assessment (Adult) History of falling in the last 3 months, bp including since admission No falls in past 3 months (0 pts) Confusion or Disorientation No (0 pts) Intoxicated or Sedated No (0 pts) Impaired Gait No (0 pts) Mobility Assist Device Used No (0 pt) Altered Elimination No (0 pt) Score/Fall Risk Level 0 - 2 = Low Risk Oriented to surroundings. Abuse screen: Denies threats or abuse. Denies injuries from another. Nutritional screening: No deficits noted. Tuberculosis screening: No symptoms or risk factors identified. Assessment: 09:45 General: Appears in no apparent distress. uncomfortable, Behavior is cooperative, bp appropriate for age, anxious. Vital Signs: 09:46 BP 149 / 88; Pulse 94; Resp 17; Temp 97.7; Pulse Ox 100% ; Weight 90.72 kg; Height 5 ll1 ft. 0 in. ; Pain 9/10; 11:22 BP 132 / 71; Pulse 75; Resp 16; Pulse Ox 99% ; bp 09:46 Body Mass Index 39.06 (90.72 kg, 152.4 cm) ll1 09:46 Pain Scale: Adult ll1 ED Course: 09:43 Patient arrived in ED. im 09:44 Arm band placed on. ll1 09:45 Patient has correct armband on for positive identification. bp 09:48 Woody Higgins MD is Attending Physician. sp3 09:49 Triage completed. ll1 09:59 Arik Mayo, RN is Primary Nurse. bp 10:20 Lumbar Spine (3 Views) XRAY In Process Unspecified. EDMS 10:35 Inserted saline lock: 20 gauge in right forearm, using aseptic technique. Blood kc6 collected. Flushed with 10 mL NS. Patient maintains SpO2 saturation greater than 95% on room air. 11:22 No provider procedures requiring assistance completed. IV discontinued, intact, bp bleeding controlled, No redness/swelling at site. Pressure dressing applied. Administered Medications: 10:35 Drug: HYDROmorphone IVP 1 mg IVP once Route: IVP; Site: right forearm; kc6 11:14 Follow up: Response: No adverse reaction; Pain is decreased; RASS: Alert and Calm (0) kc6 10:35 Drug: MethylPrednisoLONE IVP 125 mg IVP once Route: IVP; Site: right forearm; kc6 11:14 Follow up: Response: No adverse reaction kc6 10:35 Drug: Ketorolac IVP 30 mg IVP once Route: IVP; Site: right forearm; kc6 11:14 Follow up: Response: No adverse reaction kc6 10:35 Drug: Ondansetron IVP 4 mg IVP once; over 2 minutes Route: IVP; Site: right forearm; kc6 11:15 Follow up: Response: No adverse reaction kc6 Medication: 09:45 VIS not applicable for this client. bp Outcome: 10:52 Discharge ordered by MD. forte 11:22 Discharged to home ambulatory, bp 11:22 Condition: stable 11:22 Discharge instructions given to patient, Instructed on discharge instructions, follow up and referral plans. Demonstrated understanding of instructions, follow-up care, 11:23 Patient left the ED. bp Signatures: Dispatcher [employer] EDArik Dexter RN RN Amina Howell RN RN ll1 Woody Higgins MD MD sp3 Irma Castellano RN RN kc6 Liliana Leslie
[2024-12-31 11:40] VITALS: TEMP 97.7
[2024-12-31 11:42] VITALS: BP 132/71; O2SAT 99
== END 2024-12-31 11:23 | disposition home or self-care (01) ==
LOC: ER 09:42
DX: M54.50 Low back pain, unspecified (principal)
CPT/HCPCS: 72100; 96375; 96374; 99284; J1171; J2919; J2405